=== PATIENT | female | born 1950 | race Caucasian/White ===

== ENCOUNTER 2017-08-20 05:31 | Inpatient (IN) | payer MEDICAID, SELFPAY ==
[2017-08-20 05:32] VITALS: BP 154/84; PULSE 86; RESP 20; TEMP 36.9; O2SAT 93; BMI 38.0
--- NOTE | 2017-08-20 05:49 | EKG12_ITS ---
Test Reason : GEN ILL Blood Pressure : / mmHG Vent. Rate : 084 BPM Atrial Rate : 083 BPM P-R Int : 132 ms QRS Dur : 082 ms QT Int : 338 ms P-R-T Axes : 038 022 074 degrees QTc Int : 399 ms Normal sinus rhythm Nonspecific ST and T wave abnormality Abnormal ECG Confirmed by DILLON TREJO ([id number]), deputy editor in chief PROMISE DICKINSON ([id number] on 08/25/2017 1:50:18 PM Referred By: WHITNEY Confirmed By:DILLON TREJO
[2017-08-20 06:05] LABS: Hematocrit 38.1 % (37-47); Hemoglobin 11.9 g/dl (12.0-15.0); Mean Corp Hgb Conc 31.2 g/gl (32-36); Mean Corpuscular Hgb 29.5 pg (27.0-32.0); Mean Corpuscular Volume 94.3 fL (81-99); Mean Platelet Vol. 10.2 fl (6.2-12.0); Platelet Count 122 K/mm3 (150-450); RBC Distribution Width CV 13.6 % (11.6-14.6); RBC Distribution Width SD 45.1 fl (35.1-43.9); Red Blood Count 4.04 M/mm3 (4.2-5.4); White Blood Count 8.7 K/mm3 (4.4-11.0)
[2017-08-20 06:07] LABS: Scan Indicated on CBC? Y/N NO
[2017-08-20] MEDS: Ondansetron 4 MG/2 ML Vial IV (06:10)
[2017-08-20 06:27] LABS: Anion Gap 9 (5-15); BUN 25 mg/dL (7-18); BUN/Creat Ratio 18.9 RATIO (10-20); Calcium,Total 8.6 mg/dL (8.5-10.1); Chloride 110 mmol/L (98-107); Creatinine, Serum 1.32 mg/dL (0.55-1.02); EST Glomerular Filtration Rate 43 mL/min (>60); Est Glom Filt Rate - Afr Amer 52 mL/min (>60); Estimated Creatinine Clearance 42.29 ml/min; Glucose 178 mg/dL (74-106); Sodium Level 145 mmol/L (136-145)
--- NOTE | 2017-08-20 06:43 | ED.RN ---
PT STATED THAT SHE HAS NOT HAD HER DRSG CHANGED ON HER BILAT LEGS SINCE MAY.REMOVED BILAT DRSGS AND THERE WAS DRIED STOOL IN THE R WOUND.BILAT LEGS ARE VERY ODOROUS AND SKIN SLUFFING.PT HAS NOT TAKEN A BATH IN MONTHS EITHER.
--- NOTE | 2017-08-20 06:49 | ED.VISSUMM ---
- ER Visit Summary Date of Service: 08/20/17 Chief Complaint: [] Weakness History of Present Illness: The patient is a 66 F reports weakness for the last 7 days. Gradual onset continuous. Current severity is mild. She had one episode of emesis this evening. She is complaining of chronic feet burning with history of peripheral neuropathy. She has chronic lower extremity wounds. She has not changed her dressings for 2 months per patient. She said is because she has not had a wound care appointment. She has chronic lymphedema and severe ulceration and wounds. Her last visit to wound care they did a debridement on her right lateral calf. Physical Examination: Vital signs reviewed General: Is unkempt and dirty. Her lower extremity dressings are old foul-smelling dirty and full of cat hair and she had a bag of chips under her shirt. Head: Normocephalic atraumatic Eyes: Pupils equal round and reactive to light extraocular movements intact ENT: TMs clear no hemotympanum no trauma Neck: Nontender full range of motion Cardiovascular: Regular rate rhythm no murmurs normal S1-S2 Respiratory: No distress clear to auscultation bilaterally chest nontender Abdomen: Soft nontender nondistended normal bowel sounds no masses Back: Nontender no CVA tenderness Extremities: Lymphedema severe from the knees to her feet. Chronic ulceration without acute infection. Debridement of the right lateral calf noted with some mild bleeding. No evidence of cellulitis. Neuro alert oriented cranial nerves II through XII intact normal strength sensation reflexes Test Results: [] Emergency Department Course and Treatment: [] CBC normal except hemoglobin 9.9 chronic. Chemistries normal except chloride 110. Creatinine 1.3. Urinalysis pending. Troponin less than 0.02. EKG shows sinus at 84. I discussed with the patient. She does not think she can care for herself at home care for these wounds. Of a low suspicion for infection. She will be admitted. Treatment Plan: [] Disposition: [] Impression: [] Weakness Chronic lymphedema bilateral lower legs with severe maceration and ulceration Failure to thrive This note was generated with [employer]zCentral[employer] software. It may contain incorrect words, spelling, and punctuation that were not noted in review of the chart prior to signing ED Disposition - Plan for ED Patient: Chief Complaint: Fatigue Referrals: Kim Field MD [Primary Care Provider] -
--- NOTE | 2017-08-20 06:52 | ED.DCSUM_ITS ---
- ER Visit Summary Date of Service: 08/20/17 Chief Complaint: [] Weakness History of Present Illness: The patient is a 66 F reports weakness for the last 7 days. Gradual onset continuous. Current severity is mild. She had one episode of emesis this evening. She is complaining of chronic feet burning with history of peripheral neuropathy. She has chronic lower extremity wounds. She has not changed her dressings for 2 months per patient. She said is because she has not had a wound care appointment. She has chronic lymphedema and severe ulceration and wounds. Her last visit to wound care they did a debridement on her right lateral calf. Physical Examination: Vital signs reviewed General: Is unkempt and dirty. Her lower extremity dressings are old foul- smelling dirty and full of cat hair and she had a bag of chips under her shirt. Head: Normocephalic atraumatic Eyes: Pupils equal round and reactive to light extraocular movements intact ENT: TMs clear no hemotympanum no trauma Neck: Nontender full range of motion Cardiovascular: Regular rate rhythm no murmurs normal S1-S2 Respiratory: No distress clear to auscultation bilaterally chest nontender Abdomen: Soft nontender nondistended normal bowel sounds no masses Back: Nontender no CVA tenderness Extremities: Lymphedema severe from the knees to her feet. Chronic ulceration without acute infection. Debridement of the right lateral calf noted with some mild bleeding. No evidence of cellulitis. Neuro alert oriented cranial nerves II through XII intact normal strength sensation reflexes Test Results: [] Emergency Department Course and Treatment: [] CBC normal except hemoglobin 9.9 chronic. Chemistries normal except chloride 110. Creatinine 1.3. Urinalysis pending. Troponin less than 0.02. EKG shows sinus at 84. I discussed with the patient. She does not think she can care for herself at home care for these wounds. Of a low suspicion for infection. She will be admitted. Treatment Plan: [] Disposition: [] Impression: [] Weakness Chronic lymphedema bilateral lower legs with severe maceration and ulceration Failure to thrive This note was generated with Nimbu[employer]ation software. It may contain incorrect words, spelling, and punctuation that were not noted in review of the chart prior to signing ED Disposition - Plan for ED Patient: Chief Complaint: Fatigue Referrals: Kim Field MD [Primary Care Provider] -
[2017-08-20 06:59] LABS: Mucous, Urine 0 SEEN /hpf (<or=2+); Squamous Epithelial Cells - UA 0 SEEN /hpf (5-10)
[2017-08-20 07:01] LABS: Color, Urine Yellow (Yellow); Glucose, Dipstick 100 mg/dl (Normal); Ketone-Dipstick Negative (Negative); Leukocyte Esterase-Dipstick 25 /ul (Negative); Nitrite-Dipstick Negative (Negative); Occult Blood-Urine 150 /ul (Negative); Protein-Dipstick 500 mg/dl (Negative); Specific Gravity, Urine 1.015 (1.002-1.030); Urine Bilirubin Dipstick Negative (Negative); Urine Clarity Sl. Cloudy (Clear); Urine Urobilinogen Normal (Normal)
[2017-08-20 07:09] VITALS: BP 174/79; PULSE 84; RESP 16; TEMP 36.7; O2SAT 96
[2017-08-20 07:09] LABS: Amorphous Sediment 2+; Bacteria RARE /hpf (None Seen); Red Blood Cells-Urine 0-5 SEEN /hpf (0-5); White Blood Cells 0-5 SEEN /hpf (0-5)
--- NOTE | 2017-08-20 08:00 | HP.PCM_ITS ---
Problem List (1) Venous ulcer of both lower extremities with varicose veins Status: Chronic (2) Acute CHF (congestive heart failure) Status: Acute Qualifiers: (3) Diabetes mellitus type 2 in obese Status: Chronic (4) Pulmonary arterial hypertension Status: Chronic (5) History of hyperlipidemia Status: Chronic (6) S/P CABG (coronary artery bypass graft) Status: Chronic (7) Bilateral lower leg cellulitis Status: Resolved History of Present Illness Date of Admission: 08/20/17 Chief Complaint: Generalized weakness, severe lower extremity lymphedema and ulcerations The patient is a 66 year old F with past medical history of chronic lower extremity venous stasis and ulcers, CAD s/p CABG, diastolic heart failure, obesity, type 2 diabetes who presented to the emergency room due to generalized weakness. Complains of bilateral lower extremity pain and burning sensation. Chronic leg wounds and he usually follows up with a wound clinic but she has not been to the wound clinic for the past 2 months and her leg dressing has not been changed for the past 2 months. When she arrived in the ED she looked significantly unkempt, her lower extremity dressings were foul-smelling dirty and full of cat hair and she had a bag of chips under her shirt. her lower extremities are lymphedematous with severe maceration and ulceration evidence of acute infection. The patient is being admitted to the hospital for further management. Past Medical History Past Medical History (Chronic Problems): Chronic Problems Noncompliance with treatment regimen (Chronic) 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) Diabetes mellitus type 2 in obese (Chronic) Aortic stenosis, mild (Chronic) Pulmonary arterial hypertension (Chronic) Pulmonary nodules (Chronic) Cholelithiasis (Chronic) Tricuspid regurgitation (Chronic) History of esophageal reflux (Chronic) History of hyperlipidemia (Chronic) History of hypertension (Chronic) S/P CABG (coronary artery bypass graft) (Chronic) Obesity (BMI 30.0-34.9) (Chronic) Stasis dermatitis of both legs (Chronic) Lymphedema of both lower extremities (Chronic) Heart failure with preserved ejection fraction (Chronic) 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) Thrombocytopenia (Chronic) Neuropathy, peripheral (Chronic) Allergies Penicillins Allergy (Verified 03/30/17 17:21) Rash rosiglitazone maleate [From Avandia] Allergy (Verified 03/30/17 17:21) Swelling & diarrhea simvastatin [From Zocor] Allergy (Verified 03/30/17 17:21) Muscle weakness atorvastatin calcium [From Lipitor] Adverse Reaction (Verified 03/30/17 17:21) Muscle weakness esomeprazole magnesium [From Nexium] Adverse Reaction (Verified 03/30/17 17:21) Diarrhea lansoprazole [From Prevacid] Adverse Reaction (Verified 03/30/17 17:21) Diarrhea Sulfa (Sulfonamide Antibiotics) Adverse Reaction (Verified 03/30/17 17:21) Nausea/Vom/Diarrhea from PCP office records Home Medications: Ambulatory Orders Medication Instructions Recorded Aspirin [Aspirin, Baby] 81 mg PO DAILY@0800 10/20/14 Insulin Aspart [Novolog Flexpen] 53 units SC TIDCM 10/20/14 Ferrous Gluconate 325 mg PO DAILY@0800 10/21/14 Metoprolol Tartrate [Lopressor 100 mg PO BID 10/21/14 (beta apryl)] Pantoprazole Sodium [Protonix] 40 mg PO BID 10/21/14 Rosuvastatin Calcium [Crestor] 5 mg PO QHS 10/21/14 Nitroglycerin [Nitrostat] 0.4 mg SUBLINGUAL Q5M PRN 11/24/14 Gabapentin [Neurontin] 100 mg PO BID 07/02/15 Ergocalciferol [Vitamin D] 50,000 units PO SA 02/16/16 Isosorbide Mononitrate [Isosorbide 30 mg PO DAILY 02/16/16 Mononitrate ER] Niacinamide [Niacin] 500 mg PO BID 02/16/16 Furosemide [Lasix] 40 mg PO DAILY 05/06/16 Montelukast Sodium [Singulair] 10 mg PO QHS 05/06/16 Amlodipine [Norvasc] 5 mg PO DAILY 06/10/16 Spironolactone 25 mg PO DAILY 06/10/16 Sucralfate [Carafate] 1 gm PO 4X/DAY PRN 06/10/16 Losartan Potassium [Cozaar] 100 mg PO DAILY #30 tablet 06/14/16 Gauze Bandage [Rolled Gauze] 1 each TP DAILY #20 bandage 09/04/16 Gauze/Lanolin/Min Oil/[place]/Wax 1 each TP DAILY #20 bandage 09/04/16 [Cuticerin 3X3 Dressing] Gauze/Lanolin/Min Oil/[place]/Wax 1 each TP DAILY #10 bandage 09/04/16 [Cuticerin 3X8 Dressing] Insulin Aspart [Novolog Flexpen] 20 units SC TIDAC #1 flexpen 10/06/16 Ammonium Lactate 03/31/17 Insulin Aspart [Novolog Flexpen] 0 units SC ACHS 03/31/17 Ondansetron [Zofran Odt] 8 mg PO Q6H PRN PRN 03/31/17 Potassium Chloride [K-Dur] 10 meq PO DAILY 03/31/17 Triamcinolone 0.025% Cream 1 applic TOPICAL BID PRN 03/31/17 [Kenalog] Insulin Glargine,Hum.rec.anlog 100 unit SQ QHS 08/20/17 [Basaglar Kwikpen U-100] Surgical History: coronary bypass surgery, - - Right femoral bypass surgery, cochlear impants Smoking Status: Former smoker - *Family History Sibling History Items: Heart Disease Maternal History Items: No pertinent history Paternal History Items: No pertinent history Review of Systems Comment: All Systems were reviewed with pertinent positives mentioned in the HPI above. VTE Information - Inpt Only VTE Present on Admission: No VTE Mechan Device Prophylaxis: None VTE Pharm Prophylaxis ordered?: Yes - Physical Exam General: Alert, Oriented x3, - HEENT: Atraumatic Oral: Moist Mucosa Neck: Supple, No JVD Lungs: No wheeze, No rales Cardiovascular: Regular rate, Regular Rhythm, Normal S1, Normal S2 Abdomen: Bowel Sounds Present, Soft, Non Tender, Non-Distended Extremities: - Neurological: Cranial nerves II-XII grossly intact Vital Signs Temp Pulse Resp BP Pulse Ox 98.0 F 84 16 174/79 H 96 08/20/17 07:09 08/20/17 07:09 08/20/17 07:09 08/20/17 07:09 08/20/17 07:09 Oxygen Delivery Method Room Air Weight: 113.398 kg Body Mass Index (BMI) 38.0 Finger Stick Blood Glucose 262 Laboratory Tests Past 24 Hrs 08/20/17 08/20/17 08/20/17 05:45 05:45 06:55 WBC 8.7 RBC 4.04 L Hgb 11.9 L Hct 38.1 MCV 94.3 MCH 29.5 MCHC 31.2 L RDW 13.6 RDW Differential 45.1 H Plt Count 122 L MPV 10.2 Sodium 145 Potassium 5.0 Chloride 110 H Carbon Dioxide 26.0 Anion Gap 9 BUN 25 H Creatinine 1.32 H Estim Creat Clear Calc 42.29 Est GFR (MDRD) Af Amer 52 L Est GFR (MDRD) Non-Af 43 L BUN/Creatinine Ratio 18.9 Glucose 178 H Calcium 8.6 Troponin I < 0.02 Urine Color Yellow Urine Clarity Sl. Cloudy Urine pH 6.0 Ur Specific [place] 1.015 Urine Protein 500 H Urine Glucose (UA) 100 H Urine Ketones Negative Urine Occult Blood 150 H Urine Nitrite Negative Urine Bilirubin Negative Urine Urobilinogen Normal Ur Leukocyte Esterase 25 H Urine RBC 0-5 SEEN Urine WBC 0-5 SEEN Ur Squamous Epith Cells 0 SEEN Amorphous Sediment 2+ Urine Bacteria RARE Urine Mucus 0 SEEN Assessment/Plan 1. Lower extremity lymphedema with severe maceration; we will place the her on IV Lasix to reduce the swelling, will consult field operations technician for possible debridement and ET nurse for local wound care. I do not believe the patient needs any antibiotics at this time. 2. CAD status post CABG; the patient reports no symptoms of angina or heart failure at this point in time, will continue her cardioprotective medications as they are. 3. chronic diastolic heart failure/ severe pulmonary hypertension; she is clinically compensated, we will continue her on Lasix. 4. Type 2 diabetes; she is on Lantus and we will add regular insulin sliding scale for glycemic spikes.. 5. Morbid Obesity; weight loss recommended but unfortunately this is unlikely to happen due to lack of motivation. 6. Failure to thrive, adult; supportive measures , she will benefit from assisted placement. 7. DVT prophylaxis with Lovenox. Code Visit Inpatient E&M: 60397 Init Hosp L2
[2017-08-20 09:45] VITALS: BP 135/63; PULSE 77; RESP 18; TEMP 36.3; O2SAT 95; BMI 35.2; BMI 35.3
[2017-08-20 11:02] VITALS: PULSE 77
[2017-08-20] MEDS: Enoxaparin 40 MG/0.4 ML Syringe SC (11:02)
[2017-08-20] MEDS: 0.9% NaCl Peripheral Flush Adult/Peds IV ×2 (11:02→18:00)
[2017-08-20] MEDS: Losartan Potassium 100 MG Tablet PO (11:02)
[2017-08-20] MEDS: Metoprolol Tartrate 100 MG Tablet PO ×2 (11:02→21:32)
[2017-08-20] MEDS: Isosorbide Mononitrate 30 MG Tablet PO (11:02)
[2017-08-20] MEDS: Furosemide 40 MG/4 ML Vial IV ×2 (11:02→17:59)
[2017-08-20] MEDS: Gabapentin 100 MG Capsule PO ×2 (11:03→16:08)
[2017-08-20 11:41] LABS: Bedside Glucose 169 mg/dL (70-110)
--- NOTE | 2017-08-20 12:19 | CASEMGMT ---
Social Work Note Placed phone call to Carline Simmons at [facility] and left vm inquiring if there was an open case or anything in place at this time. SW to continue to follow. Yvrose Ch, SUPERVISOR PRINT LINE, FOUR SLIDE MACHINE SETTER
[2017-08-20] MEDS: Pantoprazole Sodium 40 MG Tablet PO ×2 (12:20→21:32)
[2017-08-20] MEDS: Spironolactone 25 MG Tablet PO (12:20)
--- NOTE | 2017-08-20 13:58 | NURSING ---
wound photo: left lower leg (anterior view)
--- NOTE | 2017-08-20 13:58 | NURSING ---
wound photo: left posterior lower leg
--- NOTE | 2017-08-20 14:05 | NURSING ---
wound photo: right lower leg (anterior/lateral)
--- NOTE | 2017-08-20 14:06 | NURSING ---
wound photo: right posterior lower leg
[2017-08-20 16:11] LABS: Bedside Glucose 184 mg/dL (70-110)
--- NOTE | 2017-08-20 16:57 | CASEMGMT ---
Social Work Assessment Referral Date: 08/20/2017 Date of Assessment: 08/20/2017 Reason for Consult: Presented with Self-Neglect Information: Self-Referral Personal Status: Mentation: Pt is alert and oriented x3. Able to state who she is, where she is and the date. Presents with blunted affect as evidenced by decreased amplitude of emotion and expression by pt. Pt is unkempt, presented to hospital with dressings on legs not being changed in over two months, dried feces and cat hair in her wounds and on her dressings. Unsure when pt last showered. Present during Assessment: No visitors present, but pt able to complete assessment. Living Arrangements: Pt reports to live in a two-story home with her brother, but claims there is a one-level setup. Pt known to SW from past admissions. Denies any abuse or neglect by her brother. Education: Pt graduated high school Employment: Pt is unemployed. Receives $735/month through [employer]. Reports that she is financially stable. Denies receiving food stamps and declines to apply for food stamps at this time. Claims that her brother has MOW, but states she cannot get them since he does. ADL's: Pt reports to be independent with care. DME consists of a walker. Pt reports to use taxis for transportation. Inquire she did not change the dressings on her legs for 2 months and she states I got to too busy, and with this flu thing going around... Express concern with the pt's inability to care for herself. Pt claims that she can and intends on returning home. Denies having past or present open cases with APS. Substance Use Hx: Pt denies any substance use history. No indications of use/abuse present on this admission. Mental Health Hx: Pt denies mental health diagnoses. Denies symptoms of depression or anxiety. Resources: JFS: Medicaid Pt denies utilization of resources other than JFS for Medicaid. Declines to apply for Food [place]. Intervention: Assessment completed to identify needs. Discussed discharge plan and at this time pt intends on returning home. Reports that she will follow up with the wound center for wound care and that she will use taxi's for transportation to an from appointments. Educated to SNF and [facility] and pt declines stating that she can manage her care. APS [facility] Ada Soria[facility] animal maintenance [facility] Left vm and requested a return phone call with additional questions. Plan: TBD. Yvrose Ch, REHABILITATION TEACHER, SALES ATTENDANT BUILDING MATERIALS
[2017-08-20] MEDS: Glucerna Shake 120 ML LIQUID PO ×2 (17:59→21:31)
--- NOTE | 2017-08-20 21:11 | PCM.CONS.GEN ---
Problem List (1) Venous insufficiency of both lower extremities Status: Chronic (2) Other specified peripheral vascular diseases Status: Chronic (3) Ulcer of left lower extremity with fat layer exposed Status: Chronic (4) Ulcer of right lower extremity with fat layer exposed Status: Chronic (5) Delayed wound healing Status: Chronic (6) Noncompliance with treatment regimen Status: Chronic (7) Venous ulcer of both lower extremities with varicose veins Status: Chronic (8) Obesity (BMI 30.0-34.9) Status: Chronic (9) Stasis dermatitis of both legs Status: Chronic (10) Lymphedema of both lower extremities Status: Chronic Reason for Consult Date of Consultation: 08/20/17 Reason for Consultation: Leg ulcers, maceration, and uncontrolled swelling History of Present Illness: The patient is a 66 year old female seen bedside this evening for bilateral lower extremity swelling, maceration, and ulcers. The patient is eating dinner at this time and does not want her dressings removed. After discussing that I would like to initiate her podiatric care plan and in order to do so seeing the legs willmprovide the appropriate information to do so. she is amenable to have them looked at, but wants to consider debridements at a different time. She denies previous wound care or debridements. However, upon chart review it appears she has been seen by various physicians at the wound healing center and has started the standard wound healing treatment plan including workup and debridements. She has pain at this time and relates her swelling him uncontrolled and the dressings on her legs became dry and too tight; she is unable to remove them on her own. This is part of the reason she came to the hospital in addition to her heart fluid overload. She denies claudication. However, she denies routine ambulation. She does have rest paresthesias consistent with neuropathy. Past Medical History Past Medical History (Chronic Problems): Chronic Problems Venous insufficiency of both lower extremities (Chronic) Other specified peripheral vascular diseases (Chronic) Ulcer of left lower extremity with fat layer exposed (Chronic) Ulcer of right lower extremity with fat layer exposed (Chronic) Delayed wound healing (Chronic) Noncompliance with treatment regimen (Chronic) 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) Diabetes mellitus type 2 in obese (Chronic) Aortic stenosis, mild (Chronic) Pulmonary arterial hypertension (Chronic) Pulmonary nodules (Chronic) Cholelithiasis (Chronic) Tricuspid regurgitation (Chronic) History of esophageal reflux (Chronic) History of hyperlipidemia (Chronic) History of hypertension (Chronic) S/P CABG (coronary artery bypass graft) (Chronic) Obesity (BMI 30.0-34.9) (Chronic) Stasis dermatitis of both legs (Chronic) Lymphedema of both lower extremities (Chronic) Heart failure with preserved ejection fraction (Chronic) 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) Thrombocytopenia (Chronic) Neuropathy, peripheral (Chronic) Allergies Penicillins Allergy (Verified 03/30/17 17:21) Rash rosiglitazone maleate [From Avandia] Allergy (Verified 03/30/17 17:21) Swelling & diarrhea simvastatin [From Zocor] Allergy (Verified 03/30/17 17:21) Muscle weakness atorvastatin calcium [From Lipitor] Adverse Reaction (Verified 03/30/17:) Muscle weakness esomeprazole magnesium [From Nexium] Adverse Reaction (Verified 03/30/17 17:21) Diarrhea lansoprazole [From Prevacid] Adverse Reaction (Verified 03/30/17 17:) Diarrhea Sulfa (Sulfonamide Antibiotics) Adverse Reaction (Verified 03/30/17 17:21) Nausea/Vom/Diarrhea from PCP office records Home Medications: Ambulatory Orders Medication Instructions Recorded Aspirin [Aspirin, Baby] 81 mg PO DAILY@0810/20/14 Ferrous Gluconate 325 mg PO DAILY@79910/21/14 Metoprolol Tartrate [Lopressor 100 mg PO BID 10/21/14 (beta apryl)] Pantoprazole Sodium [Protonix] 40 mg PO BID 10/21/14 Rosuvastatin Calcium [Crestor] 2.5 mg PO QHS 10/21/14 Nitroglycerin [Nitrostat] 0.4 mg SUBLINGUAL Q5M PRN 11/24/14 Gabapentin [Neurontin] 100 mg PO BID 07/02/15 Ergocalciferol [Vitamin D] 50,000 units PO SA 02/16/16 Isosorbide Mononitrate [Isosorbide 30 mg PO DAILY 02/16/16 Mononitrate ER] Niacinamide [Niacin] 500 mg PO BID 02/16/16 Furosemide [Lasix] 40 mg PO DAILY 05/06/16 Montelukast Sodium [Singulair] 10 mg PO QHS 05/06/16 Amlodipine [Norvasc] 2.5 mg PO DAILY 06/10/16 Spironolactone 25 mg PO DAILY 06/10/16 Sucralfate [Carafate] 1 gm PO 4X/DAY PRN 06/10/16 Losartan Potassium [Cozaar] 100 mg PO DAILY #30 tablet 06/14/16 Gauze Bandage [Rolled Gauze] 1 each TP DAILY #20 bandage 09/04/16 Gauze/Lanolin/Min Oil/[place]/Wax 1 each TP DAILY #20 bandage 09/04/16 [Cuticerin 3X3 Dressing] Gauze/Lanolin/Min Oil/[place]/Wax 1 each TP DAILY #10 bandage 09/04/16 [Cuticerin 3X8 Dressing] Insulin Aspart [Novolog Flexpen] 20 units SC TIDAC #1 flexpen 10/06/16 Ondansetron [Zofran Odt] 8 mg PO Q6H PRN PRN 03/31/17 Potassium Chloride [K-Dur] 10 meq PO DAILY 03/31/17 Insulin Glargine,Hum.rec.anlog 100 unit SQ QHS 08/20/17 [Basaglar Kwikpen U-100] Surgical History: coronary bypass surgery, - - Right femoral bypass surgery, cochlear impants Smoking Status: Former smoker - *Family History Sibling History Items: Heart Disease Maternal History Items: No pertinent history Paternal History Items: No pertinent history Review of Systems Constitutional: Reports: Weakness. Denies: Chills, Fever Cardiovascular: Reports: Orthopnea. Denies: Claudication Respiratory: Reports: Shortness of Breath Gastrointestinal: Denies: Nausea, Vomiting Musculoskeletal: Reports: Leg Pain. Denies: Foot Pain Skin: Reports: Skin Changes, Wounds Neurological: Reports: Numbness - Physical Exam General: Alert, Oriented x3, Cooperative, Lethargic HEENT: Atraumatic Extremities: No cyanosis, Capillary Refill Less than 3 Seconds, No Calf Tenderness - Negative Susie and Ch sign bilateral, Diminished Peripheral Pulses, Edema - With lymphedema changes bilateral lower extremities legs and feet, Tenderness - Pain with wound manipulation bilateral Skin: Ulcer/ Wound - There are large circumferential cluster wounds to bilateral lower extremities and also to the dorsal feet and toes. There is interdigital maceration and like maceration. There is no kyleigh necrosis, purulence on expression, streaking. There is inflammation, edema and diffuse erythema consistent with chronic edema and venous stasis. There is no calor or odor and it is noted that she had the length copiously cleansed earlier today. Wound beds are granular and fibrous. There is no exposed bone. The legs are hairless bilateral, - - Her clinical appearance is not consistent with an acute infection and I am suspecting more of a venous component. Musculoskeletal: No Tenderness to Palpation of Joints or Extremities, Muscle Wasting, Tenderness - Pain with manipulation bilateral, - - No crepitus or bogginess on palpation bilateral. Active range of motion digits and ankles bilateral. Decreased muscle strength noted perform a significant single leg raise test bilateral Neurological: - - Lack of epicritic sensation light touch bilateral lower extremities Psych/Mental Status: Normal Affect, Appropriate Vital Signs Temp Pulse Resp BP Pulse Ox 97.4 F L 77 18 135/63 H 95 08/20/17 09:45 08/20/17 11:02 08/20/17 09:45 08/20/17 09:45 08/20/17 09:45 Oxygen Flow Rate 2 Oxygen Delivery Method Nasal Cannula Weight: 105.2 kg Body Mass Index (BMI) 35.2 Intake and Output for Last 24 Hours 08/18/17 08/19/17 08/20/17 23:59 23:59 23:59 Output Total 1400 / 1400 Balance -1400 / -1400 POC Glucose 08/20/17 08/20/17 16:01 11:25 POC Glucose 184 H 169 H Assessment/Plan Bilateral lower extremity edema secondary to lymphedema, possible venous insufficiency, and congestive heart failure fluid overload Morbid obesity Bilateral leg ulcers with fat layer exposed Diabetes neuropathy Maceration Delayed healing Noncompliance I reviewed and discussed the case with the patient. Her diagnostic data was reviewed. She does not demonstrate leukocytosis and her white blood cell count is 8.7. Her vital signs remained stable. She has melgisorb are applied to the wounds as her maceration and edema is different dressings and wound care products will be considered. I recommended debridement and she elects to hold off this evening. Purpose and indication of the wound debridements were provided including removal of nonviable and unhealthy tissue and to further stimulate the healing process. To elevate the limbs at rest and continued light compression. I recommend further workup to see if there is a venous component to this swelling with a venous duplex Doppler with reflex evaluation. I reviewed her noninvasive vascular studies from March 2016 which demonstrated bilateral ankle noncompressible vessels.. Per chart reviewed his wounds are very chronic and I recommend an outpatient vascular surgery referral. She does not appear to have critical limb ischemia at this time. To continue with Lasix for edema reduction. To continue with proper glycemic control and nutritional supplementation to optimize healing. Medical management DVT and fall prevention per primary team is appreciated. Thank you very much for the consultation. I will follow her 1-2 times weekly while in house. To follow-up at the wound care center upon discharge. Sandra Michael, [facility] [phone]
[2017-08-20 21:25] VITALS: BP 148/66; PULSE 82; RESP 18; TEMP 37.4; O2SAT 94
--- NOTE | 2017-08-20 21:27 | VDLE_ITS ---
Reason For Study: BLE sweling RIGHT LEFT CFV is compressible, spontaneous, phasic, CFV is compressible, spontaneous, phasic, competent and demonstrates normal competent, and demonstrates normal augmentation. augmentation. FV is compressible, spontaneous, phasic, FV is compressible, spontaneous, phasic, competent and demonstrates normal competent and demonstrates normal augmentation. augmentation. POP V is compressible, spontaneous, phasic, POP V is compressible, spontaneous, phasic, competent and demonstrates normal competent and demonstrates normal augmentation. augmentation. T/P Trunk is compressible. T/P Trunk is compressible. Unable to image below the knee. RN advised Unable to visualize distal FV. against removing bandages due to extensive Unable to image below the knee. RN advised weeping blisters. against removing bandages due to extensive weeping blisters. SFJ is competent. GSV is harvested. SFJ is competent. SSV is competent. GSV is competent. Procedure SSV is competent. Exam performed portable in patient room. The study was technically limited. The study was technically difficult. PT had difficulty following directions. Legs were rigid throughout exam. A preliminary report was called and/or faxed to [facility]. Interpretation Summary Deep veins of the lower extremities are bilaterally patent and compressible segmentally. There is no evidence of deep vein thrombosis on either side. Valvular competence appears intact within the proximal deep venous systems bilaterally. The distal left femoral vein was not visualized. The deep veins of the calves were not visualized bilaterally due to the presence of bandages. Sapheno- femoral junctions are bilaterally competent . The right greater saphenous vein is absent, having been previously harvested. The left greater saphenous vein appears patent and compressible segmentally. The left greater saphenous vein appears segmentally competent. Small saphenous veins are patent and competent bilaterally. Ordering Physician: Sandra Michael Referring Physician: Kim Field Performed By: Maria L Parra, RDCS, RVT
[2017-08-20 21:32] VITALS: BP 148/66; PULSE 82
[2017-08-20] MEDS: Rosuvastatin Calcium 5 MG Tablet PO (21:32)
[2017-08-20] MEDS: Montelukast 10 MG Tablet PO (21:35)
[2017-08-20 22:16] LABS: Bedside Glucose 239 mg/dL (70-110)
[2017-08-21] VITALS (9 sets, daily range): BP systolic 118–149; BP diastolic 49–73; PULSE 68–82; RESP 18; TEMP 36.7–37.7; O2SAT 93–94
[2017-08-21 06:58] LABS: Absolute Lymphocyte Count 0.57 X10^3/ul (0.83-4.51); Absolute Neutrophil Count 6.3 X10^3/uL (2.0-7.7); Basophil# 0.01 X10^3/uL; Basophil% 0.1 % (0-1); Differential Indicated SCAN CRITERIA MET; Eosinophil# 0.06 X10^3/uL; Eosinophils% 0.8 % (0-5); Hematocrit 34.2 % (37-47); Hemoglobin 10.2 g/dl (12.0-15.0); Lymphocyte # 0.57 X10^3/ul (4.0); Lymphocyte % 7.8 % (19-41); Mean Corp Hgb Conc 29.8 g/gl (32-36); Mean Corpuscular Hgb 28.5 pg (27.0-32.0); Mean Corpuscular Volume 95.5 fL (81-99); Mean Platelet Vol. 10.4 fl (6.2-12.0); Monocyte# 0.41 X10^3/uL; Monocyte% 5.6 % (0-10); Neutrophil # 6.28 X10^3/uL (2.7-7.7); Neutrophil % 85.6 % (47-70); POSITIVE COUNT NO; POSITIVE DIFFERENTIAL YES; POSITIVE MORPHOLOGY NO; Platelet Count 106 K/mm3 (150-450); RBC Distribution Width SD 49.2 fl (35.1-43.9); Red Blood Count 3.58 M/mm3 (4.2-5.4); White Blood Count 7.3 K/mm3 (4.4-11.0)
[2017-08-21 07:01] LABS: Bedside Glucose 197 mg/dL (70-110)
[2017-08-21 07:04] LABS: Anion Gap 8 (5-15); BUN 31 mg/dL (7-18); BUN/Creat Ratio 18.1 RATIO (10-20); Calcium,Total 7.9 mg/dL (8.5-10.1); Chloride 109 mmol/L (98-107); Creatinine, Serum 1.71 mg/dL (0.55-1.02); EST Glomerular Filtration Rate 32 mL/min (>60); Est Glom Filt Rate - Afr Amer 38 mL/min (>60); Estimated Creatinine Clearance 32.65 ml/min; Glucose 193 mg/dL (74-106); Potassium 5.4 mmol/L (3.5-5.1); Sodium Level 143 mmol/L (136-145)
[2017-08-21] MEDS: Losartan Potassium 100 MG Tablet PO (09:02)
[2017-08-21] MEDS: Aspirin 81 MG TAB.CHEW PO (09:02)
[2017-08-21] MEDS: Spironolactone 25 MG Tablet PO (09:02)
[2017-08-21] MEDS: Ferrous Gluconate 325 MG Tablet PO (09:03)
[2017-08-21] MEDS: Gabapentin 100 MG Capsule PO ×2 (09:03→17:01)
[2017-08-21] MEDS: Isosorbide Mononitrate 30 MG Tablet PO (09:03)
[2017-08-21] MEDS: Pantoprazole Sodium 40 MG Tablet PO ×2 (09:03→22:53)
[2017-08-21] MEDS: Enoxaparin 40 MG/0.4 ML Syringe SC (09:03)
[2017-08-21] MEDS: Glucerna Shake 120 ML LIQUID PO ×4 (09:09→22:55)
[2017-08-21] MEDS: Metoprolol Tartrate 100 MG Tablet PO ×2 (09:13→22:53)
[2017-08-21] MEDS: Furosemide 40 MG/4 ML Vial IV ×2 (09:17→17:02)
[2017-08-21] MEDS: 0.9% NaCl Peripheral Flush Adult/Peds IV ×2 (09:17→17:02)
[2017-08-21 12:16] LABS: Bedside Glucose 292 mg/dL (70-110)
--- NOTE | 2017-08-21 14:45 | CASEMGMT ---
Social Work Note Face to face with the pt to confirm discharge plan. Pt still stating she is not going to a [facility]p. Claims that [facility] will not come out d/t bugs although SW does not believe there are bed bugs as she indicates they are much larger, possibly cockroaches. Pt states that she will get a taxi to the wound center. Express concern with her not following up and pt insists that she will. Suggest [facility] involvement and pt is agreeable. Pt denies any additional needs. Placed call to [facility] and updated on referral. Unsure if they will accept at this time and will await a return phone call to confirm their determination in regards to pt. Official referral sent via [facility]. Anticipate weekend discharge. Will notify Ada Soria with [facility] that pt is discharging home. 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
--- NOTE | 2017-08-21 16:07 | PCM.PN.HOSP ---
Subjective: CC severe lower extremity lymphedema and ulcerations. This is a 66 year old female who presented to the emergency room with bilateral lower extremity pain and burning sensation. She is found to have lower extremities lymphedema and severe maceration and ulceration but no evidence of acute infection. She has been seen by the ET nurse and her legs are wrapped with CARLOS A. she is awaiting ECF placement. Vitals/I&O's: Vital Signs Temp Pulse Resp BP Pulse Ox 98.1 F 73 18 118/49 L 93 08/21/17 14:14 08/21/17 14:14 08/21/17 14:14 08/21/17 14:14 08/21/17 14:14 Oxygen Flow Rate 2 Oxygen Delivery Method Nasal Cannula Weight: 105.2 kg Body Mass Index (BMI) 35.2 Intake and Output for Last 24 Hours 08/19/17 08/20/17 08/21/17 23:59 23:59 23:59 Intake Total 2000 / 1999 Output Total 1400 / 1400 1000 / 1000 Balance -1400 / -1400 1000 / 1000 General: Alert, Oriented x3 HEENT: Atraumatic Neck: Supple, No JVD Lungs: Clear to auscultation Cardiovascular: Regular rate, Normal S1, Normal S2 Abdomen: Bowel Sounds Present, Soft, Non Tender Neurological: Cranial nerves II-XII grossly intact, Deep Tendon Reflexes 2+/4 and Symmetrical, Motor Exam 5/5 strength throughout Laboratory Results 08/20/17 16:01: POC Glucose 184 H 08/20/17 21:38: POC Glucose 239 H 08/21/17 06:18: WBC 7.3, RBC 3.58 L, Hgb 10.2 L, Hct 34.2 L, MCV 95.5, MCH 28.5, MCHC 29.8 L, RDW 14.0, RDW Differential 49.2 H, Plt Count 106 L, MPV 10.4, Immature Gran % (Auto) 0.100, Neut % (Auto) 85.6 H, Lymph % (Auto) 7.8 L, Haines % (Auto) 5.6, Eos % (Auto) 0.8, Baso % (Auto) 0.1, Absolute Neuts (auto) 6.3, Absolute Lymphs (auto) 0.57 L, Total Counted Not Reportable, Differential Comment 08/21/17 06:18: Sodium 143, Potassium 5.4 H, Chloride 109 H, Carbon Dioxide 26.0, Anion Gap 8, BUN 31 H, Creatinine 1.71 H, Estim Creat Clear Calc 32.65, Est GFR (MDRD) Af Amer 38 L, Est GFR (MDRD) Non-Af 32 L, BUN/Creatinine Ratio 18.1, Glucose 193 H, Calcium 7.9 L 08/21/17 06:47: POC Glucose 197 H 08/21/17 12:01: POC Glucose 292 H Current Medications Aspirin (Aspirin, Baby) 81 mg PO DAILY@0800 [facility] Last Admin: 08/21/17 09:02 Dose: 81 mg Enoxaparin Sodium (Lovenox) 40 mg SC DAILY@1000 [facility] Last Admin: 08/21/17 09:03 Dose: 40 mg Ergocalciferol (Vitamin D) 50,000 unit PO [facility] Ferrous Gluconate (Ferrous Gluconate) 325 mg PO DAILY@0800 [facility] Last Admin: 08/21/17 09:03 Dose: 325 mg Furosemide (Lasix) 40 mg IV BID@1000,1800 [facility] Last Admin: 08/21/17 09:17 Dose: 40 mg [facility]) [facility] Last Admin: 08/21/17 09:03 Dose: 100 mg Insulin Aspart (Novolog Flexpen (Bkc)) 10 units SC TIDAC [facility] Last Admin: 08/21/17 12:07 Dose: 10 u Insulin Detemir (Levemir (Bkc)) 52 units SC HS [facility] Last Admin: 08/20/17 22:09 Dose: 52 units Isosorbide Mononitrate (Imdur) 30 mg PO DAILY [facility] Last Admin: 08/21/17 09:03 Dose: 30 mg Losartan Potassium (Cozaar) 100 mg PO DAILY [facility] Last Admin: 08/21/17 09:02 Dose: 100 mg Magnesium Hydroxide (Milk Of Magnesia) 30 ml PO DAILY PRN PRN PRN Reason: Constipation Metoprolol Tartrate (Lopressor (Beta Richard)) 100 mg PO BID [facility] Last Admin: 08/21/17 09:13 Dose: 100 mg Montelukast Sodium (Singulair) 10 mg PO QHS [facility] Last Admin: 08/20/17 21:35 Dose: 10 mg N[facility]in ([facility]in Sr) [facility] Last Admin: 08/21/17 09:03 Dose: 500 mg Nitroglycerin (Nitrostat) 0.4 mg SUBLINGUAL Q5M PRN PRN Reason: Chest Pain Nutritional Formula (Lactose Free) (Glucerna Shake) 120 ml PO 4X/DAY [facility] Last Admin: 08/21/17 15:37 Dose: 120 ml Ondansetron HCl (Zofran Odt) 8 mg PO Q6H PRN PRN PRN Reason: NAUSEA/VOMITING Pantoprazole Sodium (Protonix) 40 mg PO BID [facility] Last Admin: 08/21/17 09:03 Dose: 40 mg Potassium Chloride (K-Dur) 10 meq PO DAILY [facility] Last Admin: 08/21/17 09:03 Dose: 10 meq Rosuvastatin Calcium (Crestor) 5 mg PO HS [facility] Last Admin: 08/20/17 21:32 Dose: 5 mg Sodium Chloride () 5 - 30 ml IV UD PRN PRN Reason: SALINE FLUSH Last Admin: 08/21/17 09:17 Dose: 10 ml Spironolactone (Aldactone) 25 mg PO DAILY [facility] Last Admin: 08/21/17 09:02 Dose: 25 mg Assessment/Plan 1. Lower extremity lymphedema with severe maceration; we will continue on IV Lasix , ET nurse for local care. 2. CAD status post CABG; the patient reports no symptoms of angina or heart failure. 3. chronic diastolic heart failure/ severe pulmonary hypertension; she is clinically compensated, we will continue her on Lasix. 4. Type 2 diabetes; she is on Lantus and RISS for glycemic spikes. 5. Morbid Obesity; weight loss recommended . 6. Failure to thrive, adult; nutritional support, other supportive measures , she will benefit from mcfp placement. 7. DVT prophylaxis with Lovenox. Code Visit Inpatient E&M: 55722 Subs Hosp L2
--- NOTE | 2017-08-21 16:13 | PN_ITS ---
Subjective: CC severe lower extremity lymphedema and ulcerations. This is a 66 year old female who presented to the emergency room with bilateral lower extremity pain and burning sensation. She is found to have lower extremities lymphedema and severe maceration and ulceration but no evidence of acute infection. She has been seen by the ET nurse and her legs are wrapped with CARLOS A. she is awaiting ECF placement. Vitals/I&O's: Vital Signs Temp Pulse Resp BP Pulse Ox 98.1 F 73 18 118/49 L 93 08/21/17 14:14 08/21/17 14:14 08/21/17 14:14 08/21/17 14:14 08/21/17 14:14 Oxygen Flow Rate 2 Oxygen Delivery Method Nasal Cannula Weight: 105.2 kg Body Mass Index (BMI) 35.2 Intake and Output for Last 24 Hours 08/19/17 08/20/17 08/21/17 23:59 23:59 23:59 Intake Total 2000 / 1999 Output Total 1400 / 1400 1000 / 1000 Balance -1400 / -1400 1000 / 1000 General: Alert, Oriented x3 HEENT: Atraumatic Neck: Supple, No JVD Lungs: Clear to auscultation Cardiovascular: Regular rate, Normal S1, Normal S2 Abdomen: Bowel Sounds Present, Soft, Non Tender Neurological: Cranial nerves II-XII grossly intact, Deep Tendon Reflexes 2+/4 and Symmetrical, Motor Exam 5/5 strength throughout Laboratory Results 08/20/17 16:01: POC Glucose 184 H 08/20/17 21:38: POC Glucose 239 H 08/21/17 06:18: WBC 7.3, RBC 3.58 L, Hgb 10.2 L, Hct 34.2 L, MCV 95.5, MCH 28.5 , MCHC 29.8 L, RDW 14.0, RDW Differential 49.2 H, Plt Count 106 L, MPV 10.4, Immature Gran % (Auto) 0.100, Neut % (Auto) 85.6 H, Lymph % (Auto) 7.8 L, [place] % (Auto) 5.6, Eos % (Auto) 0.8, Baso % (Auto) 0.1, Absolute Neuts (auto) 6.3, Absolute Lymphs (auto) 0.57 L, Total Counted Not Reportable, Differential Comment 08/21/17 06:18: Sodium 143, Potassium 5.4 H, Chloride 109 H, Carbon Dioxide 26.0 , Anion Gap 8, BUN 31 H, Creatinine 1.71 H, Estim Creat Clear Calc 32.65, Est GFR (MDRD) Af Amer 38 L, Est GFR (MDRD) Non-Af 32 L, BUN/Creatinine Ratio 18.1, Glucose 193 H, Calcium 7.9 L 08/21/17 06:47: POC Glucose 197 H 08/21/17 12:01: POC Glucose 292 H Current Medications Aspirin (Aspirin, Baby) 81 mg PO DAILY@0800 [facility] Last Admin: 08/21/17 09:02 Dose: 81 mg Enoxaparin Sodium (Lovenox) 40 mg SC DAILY@1000 [facility] Last Admin: 08/21/17 09:03 Dose: 40 mg Ergocalciferol (Vitamin D) 50,[address] [facility] Ferrous Gluconate (Ferrous Gluconate) 325 mg PO DAILY@0800 [facility] Last Admin: 08/21/17 09:03 Dose: 325 mg Furosemide (Lasix) 40 mg IV BID@1000,1800 [facility] Last Admin: 08/21/17 09:17 Dose: 40 mg [facility]) [facility] Last Admin: 08/21/17 09:03 Dose: 100 mg Insulin Aspart (Novolog Flexpen (Bkc)) 10 units SC TIDAC [facility] Last Admin: 08/21/17 12:07 Dose: 10 u Insulin Detemir (Levemir (Bkc)) 52 units SC HS [facility] Last Admin: 08/20/17 22:09 Dose: 52 units Isosorbide Mononitrate (Imdur) 30 mg PO DAILY [facility] Last Admin: 08/21/17 09:03 Dose: 30 mg Losartan Potassium (Cozaar) 100 mg PO DAILY [facility] Last Admin: 08/21/17 09:02 Dose: 100 mg Magnesium Hydroxide (Milk Of Magnesia) 30 ml PO DAILY PRN PRN PRN Reason: Constipation Metoprolol Tartrate (Lopressor (Beta Richard)) 100 mg PO BID [facility] Last Admin: 08/21/17 09:13 Dose: 100 mg Montelukast Sodium (Singulair) 10 mg PO QHS [facility] Last Admin: 08/20/17 21:35 Dose: 10 mg Niacin (Niacin Sr) [facility] Last Admin: 08/21/17 09:03 Dose: 500 mg Nitroglycerin (Nitrostat) 0.4 mg SUBLINGUAL Q5M PRN PRN Reason: Chest Pain Nutritional Formula (Lactose Free) (Glucerna Shake) 120 ml PO 4X/DAY [facility] Last Admin: 08/21/17 15:37 Dose: 120 ml Ondansetron HCl (Zofran Odt) 8 mg PO Q6H PRN PRN PRN Reason: NAUSEA/VOMITING Pantoprazole Sodium (Protonix) 40 mg PO BID [facility] Last Admin: 08/21/17 09:03 Dose: 40 mg Potassium Chloride (K-Dur) 10 meq PO DAILY [facility] Last Admin: 08/21/17 09:03 Dose: 10 meq Rosuvastatin Calcium (Crestor) 5 mg PO HS [facility] Last Admin: 08/20/17 21:32 Dose: 5 mg Sodium Chloride () 5 - 30 ml IV UD PRN PRN Reason: SALINE FLUSH Last Admin: 08/21/17 09:17 Dose: 10 ml Spironolactone (Aldactone) 25 mg PO DAILY [facility] Last Admin: 08/21/17 09:02 Dose: 25 mg Assessment/Plan 1. Lower extremity lymphedema with severe maceration; we will continue on IV Lasix , ET nurse for local care. 2. CAD status post CABG; the patient reports no symptoms of angina or heart failure. 3. chronic diastolic heart failure/ severe pulmonary hypertension; she is clinically compensated, we will continue her on Lasix. 4. Type 2 diabetes; she is on Lantus and RISS for glycemic spikes. 5. Morbid Obesity; weight loss recommended . 6. Failure to thrive, adult; nutritional support, other supportive measures , she will benefit from senior care placement. 7. DVT prophylaxis with Lovenox. Code Visit Inpatient E&M: 96011 Subs Hosp L2
[2017-08-21 17:11] LABS: Bedside Glucose 249 mg/dL (70-110)
[2017-08-21] MEDS: Montelukast 10 MG Tablet PO (22:53)
[2017-08-21] MEDS: Rosuvastatin Calcium 5 MG Tablet PO (22:55)
[2017-08-21 23:26] LABS: Bedside Glucose 165 mg/dL (70-110)
[2017-08-22 02:48] VITALS: BP 141/52; PULSE 69; RESP 18; TEMP 37.1; O2SAT 94
[2017-08-22 07:15] LABS: Bedside Glucose 122 mg/dL (70-110)
[2017-08-22 08:20] LABS: Absolute Lymphocyte Count 0.75 X10^3/ul (0.83-4.51); Absolute Neutrophil Count 5.6 X10^3/uL (2.0-7.7); Basophil# 0.01 X10^3/uL; Basophil% 0.1 % (0-1); Eosinophil# 0.14 X10^3/uL; Hematocrit 32.8 % (37-47); Lymphocyte # 0.75 X10^3/ul (4.0); Lymphocyte % 10.8 % (19-41); Mean Corp Hgb Conc 30.5 g/gl (32-36); Mean Corpuscular Hgb 29.2 pg (27.0-32.0); Mean Corpuscular Volume 95.9 fL (81-99); Mean Platelet Vol. 10.4 fl (6.2-12.0); Monocyte# 0.41 X10^3/uL; Monocyte% 5.9 % (0-10); Neutrophil # 5.63 X10^3/uL (2.7-7.7); Neutrophil % 80.9 % (47-70); POSITIVE COUNT NO; POSITIVE DIFFERENTIAL NO; POSITIVE MORPHOLOGY NO; Platelet Count 114 K/mm3 (150-450); RBC Distribution Width CV 13.4 % (11.6-14.6); RBC Distribution Width SD 44.3 fl (35.1-43.9); Red Blood Count 3.42 M/mm3 (4.2-5.4)
[2017-08-22 08:30] LABS: BUN 43 mg/dL (7-18); Creatinine, Serum 2.11 mg/dL (0.55-1.02); Estimated Creatinine Clearance 26.46 ml/min; Glucose 119 mg/dL (74-106)
[2017-08-22 08:31] LABS: Anion Gap 6 (5-15); BUN/Creat Ratio 20.4 RATIO (10-20); Calcium,Total 7.9 mg/dL (8.5-10.1); Chloride 108 mmol/L (98-107); EST Glomerular Filtration Rate 25 mL/min (>60); Est Glom Filt Rate - Afr Amer 30 mL/min (>60); Potassium 5.2 mmol/L (3.5-5.1); Sodium Level 141 mmol/L (136-145)
[2017-08-22 09:04] VITALS: BP 118/53; PULSE 71; RESP 18; TEMP 37; O2SAT 95
[2017-08-22 09:08] VITALS: PULSE 71
[2017-08-22] MEDS: Metoprolol Tartrate 100 MG Tablet PO (09:08)
[2017-08-22] MEDS: Pantoprazole Sodium 40 MG Tablet PO (09:08)
[2017-08-22] MEDS: Losartan Potassium 100 MG Tablet PO (09:08)
[2017-08-22] MEDS: Isosorbide Mononitrate 30 MG Tablet PO (09:08)
[2017-08-22] MEDS: Spironolactone 25 MG Tablet PO (09:08)
[2017-08-22] MEDS: Gabapentin 100 MG Capsule PO (09:09)
[2017-08-22] MEDS: Furosemide 40 MG/4 ML Vial IV (09:09)
[2017-08-22] MEDS: Glucerna Shake 120 ML LIQUID PO (09:09)
[2017-08-22] MEDS: 0.9% NaCl Peripheral Flush Adult/Peds IV (09:09)
[2017-08-22] MEDS: Ferrous Gluconate 325 MG Tablet PO (09:09)
[2017-08-22] MEDS: Enoxaparin 40 MG/0.4 ML Syringe SC (09:09)
[2017-08-22] MEDS: Aspirin 81 MG TAB.CHEW PO (09:09)
[2017-08-22 13:06] LABS: Bedside Glucose 253 mg/dL (70-110)
--- NOTE | 2017-08-22 13:50 | DCINST_ITS ---
- Discharge Diagnoses Current Active Problems: Current Active and Chronic Problems Venous insufficiency of both lower extremities (Chronic) Other specified peripheral vascular diseases (Chronic) Ulcer of left lower extremity with fat layer exposed (Chronic) Ulcer of right lower extremity with fat layer exposed (Chronic) Delayed wound healing (Chronic) You will use the following diet at home:: Calorie/Carbohydrate Controlled ( specify 1200, 1400, etc) - 1800 ADA Your food should be the consistency of: Regular Your liquids should be the consistency of: Regular/Thin Discharge Activity: Return to Normal Activity Weight Bearing Status: Full weight bearing Additional Instructions: do not change dressing yourself Allergies/Adverse Reactions: Allergies Penicillins Allergy (Verified 03/30/17 17:21) Rash rosiglitazone maleate [From Avandia] Allergy (Verified 03/30/17 17:21) Swelling & diarrhea simvastatin [From Zocor] Allergy (Verified 03/30/17 17:21) Muscle weakness atorvastatin calcium [From Lipitor] Adverse Reaction (Verified 03/30/17 17:21) Muscle weakness esomeprazole magnesium [From Nexium] Adverse Reaction (Verified 03/30/17 17:21) Diarrhea lansoprazole [From Prevacid] Adverse Reaction (Verified 03/30/17 17:21) Diarrhea Sulfa (Sulfonamide Antibiotics) Adverse Reaction (Verified 03/30/17 17:21) Nausea/Vom/Diarrhea from PCP office records Medications to take at Discharge Aspirin [Aspirin, Baby] 81 mg PO DAILY@0800 10/20/14 Ferrous Gluconate 325 mg PO DAILY@0800 10/21/14 Metoprolol Tartrate [Lopressor (beta apryl)] 100 mg PO BID 10/21/14 Pantoprazole Sodium [Protonix] 40 mg PO BID 10/21/14 Rosuvastatin Calcium [Crestor] 2.5 mg PO QHS 10/21/14 Nitroglycerin [Nitrostat] 0.4 mg SUBLINGUAL Q5M PRN 11/24/14 Gabapentin [Neurontin] 100 mg PO BID 07/02/15 Ergocalciferol [Vitamin D] 50,000 units PO SA 02/16/16 Isosorbide Mononitrate [Isosorbide Mononitrate ER] 30 mg PO DAILY 02/16/16 Niacinamide [Niacin] 500 mg PO BID 02/16/16 Furosemide [Lasix] 40 mg PO DAILY 05/06/16 Montelukast Sodium [Singulair] 10 mg PO QHS 05/06/16 Spironolactone 25 mg PO DAILY 06/10/16 Losartan Potassium [Cozaar] 100 mg PO DAILY #30 tablet 06/14/16 Gauze Bandage [Rolled Gauze] 1 each TP DAILY #20 bandage 09/04/16 Gauze/Lanolin/Min Oil/[place]/Wax [Cuticerin 3X3 Dressing] 1 each TP DAILY #20 bandage 09/04/16 Gauze/Lanolin/Min Oil/[place]/Wax [Cuticerin 3X8 Dressing] 1 each TP DAILY #10 bandage 09/04/16 Insulin Aspart [Novolog Flexpen] 20 units SC TIDAC #1 flexpen 10/06/16 Ondansetron [Zofran Odt] 8 mg PO Q6H PRN PRN 03/31/17 Insulin Glargine,Hum.rec.anlog [Basaglar Kwikpen U-100] 52 unit SQ QHS 08/20/17 Primary Care Physician: Kmi Field MD [Primary Care Provider] - Please follow up with your Primary Care Physician in: next week Please Follow Up With: wound center When: next week
--- NOTE | 2017-08-22 14:00 | CASEMGMT ---
ALONSO BARR received update from physician that patient was agreeable to HHC. ALONSO BARR discussed discharge plans with patient. Patient stated that she is wanting home health care for nursing and has no preference on company as long as in network with insurance. ALONSO BARR updated patient that HHC would be set up on Thursday and CM would update patient with [facility] company. Patient voiced understanding regarding HHC being set up on Thursday. ALONSO BARR asked patient if her brother who lives with her could assist in dressing changes at home and patient replied yes. ALONSO BARR updated physician.
--- NOTE | 2017-08-22 14:08 | PCM.DC.POD ---
Discharge Activity: Return to Normal Activity, May Shower Weight Bearing Status: Full weight bearing Keep extremity elevated above heart level: Left Leg, Right Leg Call your doctor if your incision/area has: Continuous Slow Oozing, Sudden Increased Bleeding, Increased Pain/ Swelling, Increased Redness, Foul Smelling Discharge Call your doctor if you observe: Fever of 101 or Higher, Calf discomfort, Uncontrolled pain Cleanse incision/area with: Soap & Water Additional Dressing/Incision Instructions:: recommended lower extremity dressing care: change bilateral leg dressings daily with melgisorg, gauze, abdominal pad, kerlix, and dimas wrap (start on foot and end at proximal legs) Additional Instructions: I recommend an out patient vascular referral and an outpatient venous doppler with reflux examination for peripheral vascular disease and venous insufficiency work up, respectively. Allergies/Adverse Reactions: Allergies Penicillins Allergy (Verified 03/30/17 17:21) Rash rosiglitazone maleate [From Avandia] Allergy (Verified 03/30/17 17:21) Swelling & diarrhea simvastatin [From Zocor] Allergy (Verified 03/30/17 17:21) Muscle weakness atorvastatin calcium [From Lipitor] Adverse Reaction (Verified 03/30/17 17:21) Muscle weakness esomeprazole magnesium [From Nexium] Adverse Reaction (Verified 03/30/17 17:21) Diarrhea lansoprazole [From Prevacid] Adverse Reaction (Verified 03/30/17 17:21) Diarrhea Sulfa (Sulfonamide Antibiotics) Adverse Reaction (Verified 03/30/17 17:21) Nausea/Vom/Diarrhea from PCP office records Medications to take at Discharge Aspirin [Aspirin, Baby] 81 mg PO DAILY@79910/20/14 Ferrous Gluconate 325 mg PO DAILY@79910/21/14 Metoprolol Tartrate [Lopressor (beta apryl)] 100 mg PO BID 10/21/14 Pantoprazole Sodium [Protonix] 40 mg PO BID 10/21/14 Rosuvastatin Calcium [Crestor] 2.5 mg PO QHS 10/21/14 Nitroglycerin [Nitrostat] 0.4 mg SUBLINGUAL Q5M PRN 11/24/14 Gabapentin [Neurontin] 100 mg PO BID 07/02/15 Ergocalciferol [Vitamin D] 50,000 units PO SA 02/16/16 Isosorbide Mononitrate [Isosorbide Mononitrate ER] 30 mg PO DAILY 02/16/16 Niacinamide [Niacin] 500 mg PO BID 02/16/16 Furosemide [Lasix] 40 mg PO DAILY 05/06/16 Montelukast Sodium [Singulair] 10 mg PO QHS 05/06/16 Spironolactone 25 mg PO DAILY 06/10/16 Losartan Potassium [Cozaar] 100 mg PO DAILY #30 tablet 06/14/16 Gauze Bandage [Rolled Gauze] 1 each TP DAILY #20 bandage 09/04/16 Gauze/Lanolin/Min Oil/[place]/Wax [Cuticerin 3X3 Dressing] 1 each TP DAILY #20 bandage 09/04/16 Gauze/Lanolin/Min Oil/[place]/Wax [Cuticerin 3X8 Dressing] 1 each TP DAILY #10 bandage 09/04/16 Insulin Aspart [Novolog Flexpen] 20 units SC TIDAC #1 flexpen 10/06/16 Ondansetron [Zofran Odt] 8 mg PO Q6H PRN PRN 03/31/17 Insulin Glargine,Hum.rec.anlog [Basaglar Kwikpen U-100] 52 unit SQ QHS 08/20/17 Primary Care Physician: Kim Field MD [Primary Care Provider] - Please follow up with your Primary Care Physician in: next week Please Follow Up With: wound center When: next week Please Follow Up With: Proposed Discharge Date: 08/22/17
[2017-08-22 15:03] VITALS: BP 121/70; PULSE 78; RESP 20; TEMP 37.1; O2SAT 95
--- NOTE | 2017-08-23 21:43 | DS.PCM_ITS ---
Discharge Date and Diagnosis Date of Admission: 08/20/17 Date of Discharge: 08/22/17 - Primary Discharge Diagnosis #1 lower extremity lymphedema (chronic) with severe maceration of the skin #2 coronary artery disease #3 severe pulmonary hypertension #4 type 2 diabetes #5 self-neglect #6 chronic diastolic congestive heart failure - Secondary Discharge Diagnosis Chronic Problems Venous insufficiency of both lower extremities (Chronic) Other specified peripheral vascular diseases (Chronic) Ulcer of left lower extremity with fat layer exposed (Chronic) Ulcer of right lower extremity with fat layer exposed (Chronic) Delayed wound healing (Chronic) Noncompliance with treatment regimen (Chronic) 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) Diabetes mellitus type 2 in obese (Chronic) Aortic stenosis, mild (Chronic) Pulmonary arterial hypertension (Chronic) Pulmonary nodules (Chronic) Cholelithiasis (Chronic) Tricuspid regurgitation (Chronic) History of esophageal reflux (Chronic) History of hyperlipidemia (Chronic) History of hypertension (Chronic) S/P CABG (coronary artery bypass graft) (Chronic) Obesity (BMI 30.0-34.9) (Chronic) Stasis dermatitis of both legs (Chronic) Lymphedema of both lower extremities (Chronic) Heart failure with preserved ejection fraction (Chronic) 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 Patient admitted to not caring for herself properly and changing her leg wound dressings and had been on for 2 months. Patient gave the excuse that she had not had a wound care appointment for various reasons which did not make sense. Patient had chronic lymphedema of the legs. Examination of the patient in the ER revealed to be dirty and unkempt, her lower extremity dressings were foul-smelling and full of cat hair, patient had bag of potato chips under her shirt. These dressings were removed and there was noted to be chronic ulceration of the legs, there was a debridement of the right lateral calf area noted with some mild bleeding, there is no evidence of cellulitis on examination in the emergency room. Patient was admitted to [place] [address], patient was placed on IV Lasix and wound care was administered to her lower legs, she was seen in consultation by podiatry who felt that the patient needed some debridement but this was refused by the patient. There did not appear to be any critical limb ischemia noted, it was recommended that she follow up with wound care center upon discharge. Discussions were carried out with the patient and recommendations were made that she go to a [facility] facility for appropriate wound care-patient refused this suggestion and instead opted to go home but did agree to home care. There was discussion about her home situation and previous nursing services had refused to go to her home due to filth and insects. Patient admitted that she had bedbugs in her home but could not afford to have them exterminated. On 08/22/17, patient was seen and examined and felt to be in stable condition for discharge home, it was emphasized that the patient needed a follow-up with wound care the last week of July, arrangements will be made for home nursing services to see the patient at her home. Discharge Activity: Return to Normal Activity, October Shower Weight Bearing Status: Full weight bearing Keep extremity elevated above heart level: Left Leg, Right Leg Call your doctor if your incision/area has: Continuous Slow Oozing, Sudden Increased Bleeding, Increased Pain/ Swelling, Increased Redness, Foul Smelling Discharge Call your doctor if you observe: Fever of 101 or Higher, Calf discomfort, Uncontrolled pain Cleanse incision/area with: Soap & Water Additional Dressing/Incision Instructions:: recommended lower extremity dressing care: change bilateral leg dressings daily with melgisorg, gauze, abdominal pad, kerlix, and dimas wrap (start on foot and end at proximal legs) Home Medications: Medications to take at Discharge Aspirin [Aspirin, Baby] 81 mg PO DAILY@79910/20/14 Ferrous Gluconate 325 mg PO DAILY@79910/21/14 Metoprolol Tartrate [Lopressor (beta apryl)] 100 mg PO BID 10/21/14 Pantoprazole Sodium [Protonix] 40 mg PO BID 10/21/14 Rosuvastatin Calcium [Crestor] 2.5 mg PO QHS 10/21/14 Nitroglycerin [Nitrostat] 0.4 mg SUBLINGUAL Q5M PRN 11/24/14 Gabapentin [Neurontin] 100 mg PO BID 07/02/15 Ergocalciferol [Vitamin D] 50,000 units PO SA 02/16/16 Isosorbide Mononitrate [Isosorbide Mononitrate ER] 30 mg PO DAILY 02/16/16 Niacinamide [Niacin] 500 mg PO BID 02/16/16 Furosemide [Lasix] 40 mg PO DAILY 05/06/16 Montelukast Sodium [Singulair] 10 mg PO QHS 05/06/16 Spironolactone 25 mg PO DAILY 06/10/16 Losartan Potassium [Cozaar] 100 mg PO DAILY #30 tablet 06/14/16 Gauze Bandage [Rolled Gauze] 1 each TP DAILY #20 bandage 09/04/16 Gauze/Lanolin/Min Oil/[place]/Wax [Cuticerin 3X3 Dressing] 1 each TP DAILY #20 bandage 09/04/16 Gauze/Lanolin/Min Oil/[place]/Wax [Cuticerin 3X8 Dressing] 1 each TP DAILY #10 bandage 09/04/16 Insulin Aspart [Novolog Flexpen] 20 units SC TIDAC #1 flexpen 10/06/16 Ondansetron [Zofran Odt] 8 mg PO Q6H PRN PRN 03/31/17 Insulin Glargine,Hum.rec.anlog [Basaglar Kwikpen U-100] 52 unit SQ QHS 08/20/17 Primary Care Physician: Kim Field MD [Primary Care Provider] - Please follow up with your Primary Care Physician in: next week Please Follow Up With: wound center When: next week Please Follow Up With: Additional Instructions: I recommend an out patient vascular referral and an outpatient venous doppler with reflux examination for peripheral vascular disease and venous insufficiency work up, respectively. Disposition: Home with Home Health Minutes spent on discharge:: 34 Patient Condition:: Stable Meaningful Use Info Meaningful Use Diagnoses (Choose all that apply): None applicable
--- NOTE | 2017-08-24 10:38 | CASEMGMT ---
ALONSO BARR follow-up from the weekend for home health care set-up. ALONSO BARR notes [facility] ALONSO BARR faxed referral to [facility] and spoke with Kiki Tsai, director at [facility], who states they are willing to accept and will send a [id number] request to Dr. Field since Dr. Echeverria is not in the hospital today to complete the [id number]. ALONSO BARR called patient to make aware of referral, patient did not answer, and no opportunity to leave a message. Gera Flynn BSN, RN-BC, CCM
--- NOTE | 2017-08-24 10:43 | CCN.REFER ---
PATIENT DECLINES CCN AT THIS TIME. DOES NOT WANT STUDENTS OR CCN STAFF ENTERING HOME.
== END 2017-08-22 16:09 | disposition home or self-care (01) | DRG 271 ==
LOC: ED 07:21 → MS3 08:21
PROVIDERS: Admitting Provider Internal Medicine; Emergency Provider Emergency Medicine; Family Provider Internal Medicine; PCP Internal Medicine; Visit Provider Internal Medicine
DX: L97.929 Non-pressure chronic ulcer of unspecified part of left lower leg with unspecified severity (principal); E11.40 Type 2 diabetes mellitus with diabetic neuropathy, unspecified; E11.22 Type 2 diabetes mellitus with diabetic chronic kidney disease; I27.20 Pulmonary hypertension, unspecified; E66.01 Morbid (severe) obesity due to excess calories; I50.32 Chronic diastolic (congestive) heart failure; N18.3 Chronic kidney disease, stage 3 (moderate); L97.919 Non-pressure chronic ulcer of unspecified part of right lower leg with unspecified severity; I89.0 Lymphedema, not elsewhere classified; R23.8 Other skin changes; R62.7 Adult failure to thrive; I25.10 Atherosclerotic heart disease of native coronary artery without angina pectoris; Z95.1 Presence of aortocoronary bypass graft; Z87.891 Personal history of nicotine dependence; Z68.35 Body mass index [BMI] 35.0-35.9, adult; I87.2 Venous insufficiency (chronic) (peripheral); Z79.4 Long term (current) use of insulin
CPT/HCPCS: 36415; 80048; 81001; 82962; 84484; 85025; 85027; 93005; 93970; 97110; 97162; 97166; 97530; 99285; A4216; J1940; J2405

== ENCOUNTER 2017-09-25 15:00 | Outpatient (RCR) | payer MEDICAID, SELFPAY ==
[2017-09-03 11:41] VITALS: BP 141/64; PULSE 71; RESP 16; TEMP 35.8; BMI 30.4
--- NOTE | 2017-09-03 18:19 | PCM.WC.HP ---
(1) Maceration of skin Status: Acute Code(s): L98.8 - Other specified disorders of the skin and subcutaneous tissue (2) Acquired deformity of toe of both feet Status: Acute Code(s): M20.61 - Acquired deformities of toe(s), unspecified, right foot; M20.62 - Acquired deformities of toe(s), unspecified, left foot (3) Diabetes mellitus type 2 in obese Status: Chronic Code(s): E11.9 - Type 2 diabetes mellitus without complications; E66.9 - Obesity, unspecified (4) Lymphedema of both lower extremities Status: Chronic Code(s): I89.0 - Lymphedema, not elsewhere classified (5) Noncompliance with treatment regimen Status: Chronic Code(s): Z91.19 - Patient's noncompliance with other medical treatment and regimen (6) Stasis dermatitis of both legs Status: Chronic Code(s): I83.11 - Varicose veins of right lower extremity with inflammation; I83.12 - Varicose veins of left lower extremity with inflammation (7) Ulcer of left lower extremity with fat layer exposed Status: Chronic Code(s): L97.922 - Non-pressure chronic ulcer of unspecified part of left lower leg with fat layer exposed (8) Ulcer of right lower extremity with fat layer exposed Status: Chronic Code(s): L97.912 - Non-pressure chronic ulcer of unspecified part of right lower leg with fat layer exposed History of Present Illness Date of Service: 09/03/17 Chief Complaint: Lower extremity ulcer and Maceration s/p recent hospital admission. History of Wound: Ms. Duque is a 66-year-old with a complex past medical history who is here as a follow up from recent hospital admission for lower extremity edema/ulcers. She has been seen here in the past most recently in May and typically does not routinely follow-up. She was seen most recently in the hospital and managed as a case of bilateral lower extremity ulcers and maceration. She was also noted to have significant maceration of both feet with foul-smelling creamy discharge and toe deformities. She is a poor historian and cannot really give a clear history of onset. She was noted to have had an [place] wrap/Unna boot on for about 2 months. She was seen by Dr. Michael and surgical debridement was recommended however, patient declined. She had venous studies done in July which were without any significant abnormalities. She denies any complaints at this time. Past Medical History Past Medical History: Chronic Problems Venous insufficiency of both lower extremities (Chronic) Other specified peripheral vascular diseases (Chronic) Ulcer of left lower extremity with fat layer exposed (Chronic) Ulcer of right lower extremity with fat layer exposed (Chronic) Delayed wound healing (Chronic) Noncompliance with treatment regimen (Chronic) 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) Diabetes mellitus type 2 in obese (Chronic) Aortic stenosis, mild (Chronic) Pulmonary arterial hypertension (Chronic) Pulmonary nodules (Chronic) Cholelithiasis (Chronic) Tricuspid regurgitation (Chronic) History of esophageal reflux (Chronic) History of hyperlipidemia (Chronic) History of hypertension (Chronic) S/P CABG (coronary artery bypass graft) (Chronic) Obesity (BMI 30.0-34.9) (Chronic) Stasis dermatitis of both legs (Chronic) Lymphedema of both lower extremities (Chronic) Heart failure with preserved ejection fraction (Chronic) 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) Thrombocytopenia (Chronic) Neuropathy, peripheral (Chronic) Surgical History: coronary bypass surgery, - - Right femoral bypass surgery, cochlear impants Allergies/Adverse Reactions: Allergies Penicillins Allergy (Verified 03/30/17 17:21) Rash rosiglitazone maleate [From Avandia] Allergy (Verified 03/30/17 17:21) Swelling & diarrhea simvastatin [From Zocor] Allergy (Verified 03/30/17 17:21) Muscle weakness atorvastatin calcium [From Lipitor] Adverse Reaction (Verified 03/30/17 17:21) Muscle weakness esomeprazole magnesium [From Nexium] Adverse Reaction (Verified 03/30/17 17:21) Diarrhea lansoprazole [From Prevacid] Adverse Reaction (Verified 03/30/17 17:21) Diarrhea Sulfa (Sulfonamide Antibiotics) Adverse Reaction (Verified 03/30/17 17:21) Nausea/Vom/Diarrhea from PCP office records Home Medications: Ambulatory Orders Medication Instructions Recorded Aspirin [Aspirin, Baby] 81 mg PO DAILY@0800 10/20/14 Ferrous Gluconate 325 mg PO DAILY@0800 10/21/14 Metoprolol Tartrate [Lopressor 100 mg PO BID 10/21/14 (beta apryl)] Pantoprazole Sodium [Protonix] 40 mg PO BID 04/25/15 Rosuvastatin Calcium [Crestor] 2.5 mg PO QHS 10/21/14 Nitroglycerin [Nitrostat] 0.4 mg SUBLINGUAL Q5M PRN 11/24/14 Gabapentin [Neurontin] 100 mg PO BID 07/02/15 Ergocalciferol [Vitamin D] 50,000 units PO SA 02/16/16 Isosorbide Mononitrate [Isosorbide 30 mg PO DAILY 02/16/16 Mononitrate ER] Niacinamide [Niacin] 500 mg PO BID 02/16/16 Furosemide [Lasix] 40 mg PO DAILY 05/06/16 Montelukast Sodium [Singulair] 10 mg PO QHS 05/06/16 Spironolactone 25 mg PO DAILY 06/10/16 Losartan Potassium [Cozaar] 100 mg PO DAILY #30 tablet 06/14/16 Gauze Bandage [Rolled Gauze] 1 each TP DAILY #20 bandage 09/04/16 Gauze/Lanolin/Min Oil/Ausitn/Wax 1 each TP DAILY #20 bandage 09/04/16 [Cuticerin 3X3 Dressing] Gauze/Lanolin/Min Oil/[place]/Wax 1 each TP DAILY #10 bandage 09/04/16 [Cuticerin 3X8 Dressing] Insulin Aspart [Novolog Flexpen] 20 units SC TIDAC #1 flexpen 10/06/16 Ondansetron [Zofran Odt] 8 mg PO Q6H PRN PRN 03/31/17 Insulin Glargine,Hum.rec.anlog 52 unit SQ QHS 08/20/17 [Basaglar Kwikpen U-100] - Family History Sibling Heart Disease Maternal No pertinent history Paternal No pertinent history Smoking Status: Former smoker Review of Systems Constitutional: Denies: Anorexia, Chills, Fever Eyes: Denies: Pain, Redness HEENT: Denies: Difficulty Hearing, Difficulty Swallowing Cardiovascular: Denies: Chest Pain, Chest Tightness Respiratory: Denies: Cough, Hemoptysis Gastrointestinal: Denies: Abdominal Pain, Hematemesis, Vomiting Skin: Reports: Dryness. Denies: Jaundice - Physical Exam Vital Signs Temp Pulse Resp BP 96.4 F L 71 16 141/64 H 09/03/17 11:41 09/03/17 11:41 09/03/17 11:41 09/03/17 11:41 General: Alert, Cooperative, No apparent distress HEENT: Atraumatic, Normocephalic Oral: Moist Mucosa Neck: Supple Lungs: Normal air movement Cardiovascular: Regular rate, Regular Rhythm, Normal S1, Normal S2, Murmur Abdomen: Soft, Non Tender, Obese Skin: Ulcer/ Wound Wound Measurements and Assessment WC - Nurse 1 - General Ulcer Measurement Start: 09/03/17 11:35 Freq: Status: Active Protocol: Activity Type Activity Date Activity User E-Sign Co-Sign Detail Recorded Client Recorded Date Recorded By Document 09/03/17 11:41 [facility] [id number] 09/03/17 12:11 [facility] 09/03/17 11:41 Wound Center Nurse 1 [Ulcer Assessment] #5- LLE CIRCUMFERENTIAL -Combined with other wound No -Current Size (cm) - Length 48.5 -Current Size (cm) - Width 42.4 -Current Size (cm) - Depth 0.1 -Total Square Cm 2056.40 -Date of Last Picture (Recall this 09/03/17 field) -Photo Taken Yes -Epithelialization None Present -Tunneling No -Undermining/Tunneling No -Exudate Amt Large (67-100%) -Exudate Type Serosanguineous -Structure Exposed None/Limited to Skin Breakdown -Texture (Melvi-wound Skin Appearance) Scarring Rash -Moisture (Meliv-wound Skin Appearance Maceration ) Weeping Dry/Scaly -Color (Melvi-wound Skin Appearance) Erythema -Temperature (Melvi-wound Skin No Abnormality Appearance) (Pt Warm) -Tenderness on Palpation (Melvi-wound No Skin Appearance) -Ulcer Cleansing Wound Cleanser -Foul Odor after Cleansing No -Anesthetic Used 4% Lidocaine Solution #4- RLE CIRCUMFERENTIAL -Combined with other wound No -Current Size (cm) - Length 46.5 -Current Size (cm) - Width 39.9 -Current Size (cm) - Depth 0.1 -Total Square Cm 1855.35 -Date of Last Picture (Recall this 09/03/17 field) -Photo Taken Yes -Epithelialization None Present -Tunneling No -Undermining/Tunneling No -Circular Undermining No -Exudate Amt Large (67-100%) -Exudate Type Serosanguineous -Structure Exposed None/Limited to Skin Breakdown -Texture (Melvi-wound Skin Appearance) Scarring Rash -Moisture (Melvi-wound Skin Appearance Maceration ) Weeping Dry/Scaly -Color (Melvi-wound Skin Appearance) Assessed Erythema -Temperature (Melvi-wound Skin No Abnormality Appearance) (Pt Warm) -Tenderness on Palpation (Melvi-wound No Skin Appearance) -Ulcer Cleansing Wound Cleanser -Foul Odor after Cleansing No -Anesthetic Used 4% Lidocaine Solution [Edema Assessment] -Lower Limb Edema Present Yes -Right Calf (cm) 39.9 -Right Ankle (cm) 24.4 -Left Calf (cm) 42.4 -Left Ankle (cm) 22.6 Musculoskeletal: No Muscle Wasting Neurological: Neuro grossly intact Psych/Mental Status: Normal Affect Debridement Note Wound debrided: Right Dorsum foot Wound Grade/Stage: quintana II Type of Debridement: Selective debridement Anesthesia Used: 4% Lidocaine Solution Depth: Down to and including healthy tissue, in the subcutaneous layer Percentage of wound debrided: 50 Instrument Used: 5mm curette Tissue Removed: Devitalized tissue, macerated skin, slough, fibrin Severity: Fat Layer Exposed Amount of bleeding with debridement: Mild Bleeding Controlled with: Pressure Patient tolerated procedure well - Additional Wound Wound debrided: Left Dorsum foot Wound Grade/Stage: Quintana II Type of Debridement: Selective debridement Anesthesia Used: 4% Lidocaine Solution Depth: Down to and including healthy tissue, in the subcutaneous layer Percentage of wound debrided: 50 Instrument Used: 5mm curette Tissue Removed: Devitalized tissue, Macerated skin, slough and Fibrin Severity: Fat Layer Exposed Amount of bleeding with debridement: Mild Bleeding Controlled with: Pressure Patient tolerated procedure: Patient tolerated procedure well Assessment/Plan Assessment: Bilateral lower extremity lymphedema. Stasis dermatitis. Bilateral feet ulcers and severe maceration. Bilateral toe deformity. Plan: She is status post recent hospital admission for significant maceration and stasis dermatitis of the bilateral lower extremity. During that hospital stay Dr. Michael was consulted and suggested debridement however per documentation, patient declined. Still significant maceration of feet bilaterally with foul-smelling odor. Stasis dermatitis is noted of both lower extremities extending up to the knee. Bilateral dorsal feet ulcer however covered by significant slough burden and maceration. Selective debridement of her feet was done and cultures taken. Procedure was well-tolerated. Apply Xeroform to bilateral ulcers with light coban wrap. Advised to come in for nurse visit on Thursday. Due to significant maceration and toe deformities I believe she will be better served by a supervisor chlorine liquefaction and will therefore transfer care over to podiatry here at the wound center. Avoid idle standing. Elevate lower extremities when seated. Patient urged to be compliant. Optimal blood sugar control. Follow-up with culture results. Follow-up in 1 week with the wound center. This note was generated with [employer] dictation software. It may contain incorrect words, spelling, and punctuation that were not noted in checking the note before signing.
[2017-09-08 16:08] VITALS: BP 150/88; PULSE 88; RESP 16; TEMP 37.3; BMI 30.4
--- NOTE | 2017-09-08 17:14 | PCM.WC.HP ---
(1) Non-pressure chronic ulcer of other part of right lower leg limited to breakdown of skin Status: Acute Current Visit: Yes Code(s): L97.811 - Non-pressure chronic ulcer of other part of right lower leg limited to breakdown of skin (2) Non-pressure chronic ulcer of other part of left lower leg limited to breakdown of skin Status: Acute Current Visit: Yes Code(s): L97.821 - Non-pressure chronic ulcer of other part of left lower leg limited to breakdown of skin (3) Non-pressure chronic ulcer of other part of right foot limited to breakdown of skin Status: Acute Current Visit: Yes Code(s): L97.511 - Non-pressure chronic ulcer of other part of right foot limited to breakdown of skin (4) Non-pressure chronic ulcer of other part of left foot limited to breakdown of skin Status: Acute Current Visit: Yes Code(s): L97.521 - Non-pressure chronic ulcer of other part of left foot limited to breakdown of skin (5) Type 2 diabetes mellitus with diabetic peripheral angiopathy without gangrene Status: Acute Current Visit: Yes Qualifiers: 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 History of Wound: Ms. Duque is a 66-year-old with a complex past medical history who is here as a follow up from recent hospital admission for lower extremity edema/ulcers. She has been seen here in the past most recently in May and typically does not routinely follow-up. She was seen most recently in the hospital and managed as a case of bilateral lower extremity ulcers and maceration. She was also noted to have significant maceration of both feet with foul-smelling creamy discharge and toe deformities. She is a poor historian and cannot really give a clear history of onset. She was noted to have had an Quincy wrap/Unna boot on for about 2 months. She was seen by Dr. Michael and surgical debridement was recommended however, patient declined. She had venous studies done in July which were without any significant abnormalities. She saw Dr. Alicea last week and she recommended podiatry. Pt has superficial macerated ulcerations diffusely on the legs as well as dorsal bilateral forefeet. Ulcerations appear due to drainage. Pt has poor hygeine. Of note, patient was discharged by home health due to bed bug infestation in her house. Past Medical History Past Medical History: Chronic Problems Venous insufficiency of both lower extremities (Chronic) Other specified peripheral vascular diseases (Chronic) Ulcer of left lower extremity with fat layer exposed (Chronic) Ulcer of right lower extremity with fat layer exposed (Chronic) Delayed wound healing (Chronic) Noncompliance with treatment regimen (Chronic) 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) Diabetes mellitus type 2 in obese (Chronic) Aortic stenosis, mild (Chronic) Pulmonary arterial hypertension (Chronic) Pulmonary nodules (Chronic) Cholelithiasis (Chronic) Tricuspid regurgitation (Chronic) History of esophageal reflux (Chronic) History of hyperlipidemia (Chronic) History of hypertension (Chronic) S/P CABG (coronary artery bypass graft) (Chronic) Obesity (BMI 30.0-34.9) (Chronic) Stasis dermatitis of both legs (Chronic) Lymphedema of both lower extremities (Chronic) Heart failure with preserved ejection fraction (Chronic) 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) Thrombocytopenia (Chronic) Neuropathy, peripheral (Chronic) Surgical History: coronary bypass surgery, - - Right femoral bypass surgery, cochlear impants Allergies/Adverse Reactions: Allergies Penicillins Allergy (Verified 03/30/17 17:21) Rash rosiglitazone maleate [From Avandia] Allergy (Verified 03/30/17 17:21) Swelling & diarrhea simvastatin [From Zocor] Allergy (Verified 03/30/17 17:21) Muscle weakness atorvastatin calcium [From Lipitor] Adverse Reaction (Verified 03/30/17 17:21) Muscle weakness esomeprazole magnesium [From Nexium] Adverse Reaction (Verified 03/30/17 17:21) Diarrhea lansoprazole [From Prevacid] Adverse Reaction (Verified 03/30/17 17:21) Diarrhea Sulfa (Sulfonamide Antibiotics) Adverse Reaction (Verified 03/30/17 17:21) Nausea/Vom/Diarrhea from PCP office records Home Medications: Ambulatory Orders Medication Instructions Recorded Aspirin [Aspirin, Baby] 81 mg PO DAILY@0810/20/14 Ferrous Gluconate 325 mg PO DAILY@0810/21/14 Metoprolol Tartrate [Lopressor 100 mg PO BID 10/21/14 (beta apryl)] Pantoprazole Sodium [Protonix] 40 mg PO BID 10/21/14 Rosuvastatin Calcium [Crestor] 2.5 mg PO QHS 10/21/14 Nitroglycerin [Nitrostat] 0.4 mg SUBLINGUAL Q5M PRN 11/24/14 Gabapentin [Neurontin] 100 mg PO BID 07/02/15 Ergocalciferol [Vitamin D] 50,000 units PO SA 02/16/16 Isosorbide Mononitrate [Isosorbide 30 mg PO DAILY 02/16/16 Mononitrate ER] Niacinamide [Niacin] 500 mg PO BID 02/16/16 Furosemide [Lasix] 40 mg PO DAILY 05/06/16 Montelukast Sodium [Singulair] 10 mg PO QHS 05/06/16 Spironolactone 25 mg PO DAILY 06/10/16 Losartan Potassium [Cozaar] 100 mg PO DAILY #30 tablet 06/14/16 Gauze Bandage [Rolled Gauze] 1 each TP DAILY #20 bandage 09/04/16 Gauze/Lanolin/Min Oil/[place]/Wax 1 each TP DAILY #20 bandage 09/04/16 [Cuticerin 3X3 Dressing] Gauze/Lanolin/Min Oil/[place]/Wax 1 each TP DAILY #10 bandage 09/04/16 [Cuticerin 3X8 Dressing] Insulin Aspart [Novolog Flexpen] 20 units SC TIDAC #1 flexpen 10/06/16 Ondansetron [Zofran Odt] 8 mg PO Q6H PRN PRN 03/31/17 Insulin Glargine,Hum.rec.anlog 52 unit SQ QHS 08/20/17 [Basaglar Kwikpen U-100] - Family History Sibling Heart Disease Maternal No pertinent history Paternal No pertinent history Lives: With Family Smoking Status: Former smoker Tobacco Use: Non-smoker Alcohol: Rare Drugs: None Review of Systems Constitutional: Denies: Chills, Fever, Weight Change Eyes: Denies: Pain, Vision Change HEENT: Denies: Difficulty Hearing, Difficulty Swallowing, Sinus Congestion Cardiovascular: Reports: Edema. Denies: Chest Pain, Palpitations Respiratory: Denies: Cough, Shortness of Breath Gastrointestinal: Denies: Diarrhea, Nausea, Vomiting Genitourinary: Denies: Dysuria, Hematuria Skin: Reports: Skin Changes, Wounds Endocrine: Denies: Heat/ Cold Intolerance, Polydipsia, Polyuria Hematologic/ Lymphatic: Denies: Easy Bruising, Easy Bleeding - Physical Exam Vital Signs Temp Pulse Resp BP 99.1 F 88 16 150/88 H 09/08/17 16:08 09/08/17 16:08 09/08/17 16:08 09/08/17 16:08 General: Alert, Oriented x3, Cooperative, No apparent distress Extremities: No clubbing, No cyanosis, Capillary Refill Less than 3 Seconds, No Calf Tenderness, Diminished Peripheral Pulses, Edema Skin: Ulcer/ Wound - Superficial ulcerations diffusely on both legs as well as dorsal forefoot and interdigitally bilateral feet with no erythema, no malodor, no pus, no calor. No clinical signs of acute bacterial infection noted. See nurses wound/edema assessment below. Wound Measurements and Assessment WC - Nurse 1 - General Ulcer Measurement Start: 09/03/17 11:35 Freq: Status: Active Protocol: Activity Type Activity Date Activity User E-Sign Co-Sign Detail Recorded Client Recorded Date Recorded By Document 09/08/17 16:08 DV [id number] 09/08/17 16:48 DV 09/08/17 16:08 Wound Center Nurse 1 [Ulcer Assessment] #5- LLE CIRCUMFERENTIAL -Combined with other wound No -Current Size (cm) - Length 33.2 -Current Size (cm) - Width 25.6 -Current Size (cm) - Depth 0.1 -Total Square Cm 849.92 -Photo Taken No -Epithelialization None Present -Tunneling No -Undermining/Tunneling No -Circular Undermining No -Classification - Thickness Full Thickness without Exposed Support Structure -Exudate Amt Large (67-100%) -Exudate Type Yellow/Green -Granulation Amt None Present (0 %) -Granulation Quality N/A -Slough/Fibrin Yes -Necrosis Amt Large (67-100%) -Necrotic Tissue Type Adherent Slough -Structure Exposed None/Limited to Skin Breakdown -Texture (Melvi-wound Skin Appearance) Assessed Callus Excoriation Localized Edema Scarring -Moisture (Melvi-wound Skin Appearance Assessed ) Maceration Weeping -Color (Melvi-wound Skin Appearance) Assessed Erythema -Temperature (Melvi-wound Skin No Abnormality Appearance) (Pt Warm) -Tenderness on Palpation (Melvi-wound Yes Skin Appearance) -Ulcer Cleansing Wound Cleanser -Foul Odor after Cleansing Yes -Anesthetic Used 4% Lidocaine Solution #4- RLE CIRCUMFERENTIAL -Combined with other wound No -Current Size (cm) - Length 35.0 -Current Size (cm) - Width 10.0 -Current Size (cm) - Depth 0.1 -Total Square Cm 350.00 -Photo Taken No -Epithelialization None Present -Tunneling No -Undermining/Tunneling No -Circular Undermining No -Exudate Amt Large (67-100%) -Exudate Type Yellow/Green -Wound Margin Indistinct, Non -Visible -Granulation Amt None Present (0 %) -Granulation Quality N/A -Slough/Fibrin Yes -Necrosis Amt Large (67-100%) -Necrotic Tissue Type Adherent Slough -Structure Exposed None/Limited to Skin Breakdown -Texture (Melvi-wound Skin Appearance) Assessed Friable Localized Edema Scarring -Moisture (Melvi-wound Skin Appearance Assessed ) Maceration Weeping -Color (Melvi-wound Skin Appearance) Assessed Erythema -Temperature (Melvi-wound Skin No Abnormality Appearance) (Pt Warm) -Tenderness on Palpation (Melvi-wound Yes Skin Appearance) -Ulcer Cleansing Wound Cleanser -Foul Odor after Cleansing Yes -Anesthetic Used 4% Lidocaine Solution [Edema Assessment] -Lower Limb Edema Present Yes -Right Calf (cm) 41.5 -Right Ankle (cm) 25.0 -Left Calf (cm) 41.0 -Left Ankle (cm) 23.0 Musculoskeletal: No Tenderness to Palpation of Joints or Extremities Neurological: Motor Exam 5/5 strength throughout, Muscle tone normal, Sensory exam intact to light touch and pain, Coordination normal, - - LOPS with SWMF 5.07 b/l feet Psych/Mental Status: Alert and oriented to time, place, person, mood and affect - wnl Debridement Note Post-Debridement Measurements/Treatment WC - Nurse 2 - General Ulcer CM Notes Start: 09/03/17 11:35 Freq: Status: Active Protocol: Activity Type Activity Date Activity User E-Sign Co-Sign Detail Recorded Client Recorded Date Recorded By Document 09/03/17 13:00 DV [id number] 09/04/17 17:26 DV 09/03/17 13:00 Wound Center Nurse 2 #5- LLE CIRCUMFERENTIAL -Time 17:19 -Correct Patient Yes -Correct Side, Site, Position Yes -Correct Procedure Yes -Procedure Performed Yes -Type of Procedure Debridement -Clinical Debridement Selective -Post Debridement Size (cm) - Length 48.0 -Post Debridement Size (cm) - Width 42.4 -Post Debridement Size (cm) - Depth 0.1 -Total Square Cm 2035.20 -Wound/Ulcer Outcome Failed Graft -Ulcer Cleansing Rinsed/ Irrigated with Saline -Foul Odor after Cleansing No -Bioengineered Tissue No -Bleeding Controlled with Pressure -Other 25% -Treatment Response Procedure Tolerated Well #4- RLE CIRCUMFERENTIAL -Time 17:23 -Correct Patient Yes -Correct Side, Site, Position Yes -Correct Procedure Yes -Procedure Performed Yes -Type of Procedure Debridement -Clinical Debridement Selective -Post Debridement Size (cm) - Length 46.0 -Post Debridement Size (cm) - Width 39.0 -Post Debridement Size (cm) - Depth 0.1 -Total Square Cm 1794.00 -Wound/Ulcer Outcome Not Healed -Ulcer Cleansing Not Cleansed -Foul Odor after Cleansing No -Bioengineered Tissue No -Bleeding Controlled with Pressure -Other 25% -Treatment Response Procedure Not Tolerated Well Pain Scale: 0-10 Numeric Is Patient Pain Free? 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 Pt has hx arterial fem-pop bypass RLE. Ordered arterial dopplers of lower extremities. Recently had venous duplex. Weave aquacel ag between all toes, apply silvercel to remaining ulcerations, change 2x/week. Pt discharged from home health due to bed bug problems, so she will come here for nurse visit for dressing change. Plan for greater compression after arterial study if able. Monitor for redness, pus, malodor,warmth, pain, inc swelling as well as N/V/F/C and go to the ED with these. Disc importance of tight blood sugar control, adequate nutrition elaine increased protein intake to promote healing. Return in 1 week to see me, 3 days for nurse visit. Call with questions.
[2017-09-11 15:29] VITALS: BP 148/63; PULSE 70; RESP 16; TEMP 36; BMI 30.4
[2017-09-15 14:02] VITALS: BP 145/69; PULSE 66; RESP 20; TEMP 36.6; BMI 30.4
--- NOTE | 2017-09-15 14:45 | PCM.WC.PN ---
(1) Non-pressure chronic ulcer of other part of right lower leg limited to breakdown of skin Status: Acute Current Visit: Yes Code(s): L97.811 - Non-pressure chronic ulcer of other part of right lower leg limited to breakdown of skin (2) Non-pressure chronic ulcer of other part of left lower leg limited to breakdown of skin Status: Resolved Current Visit: No Code(s): L97.821 - Non-pressure chronic ulcer of other part of left lower leg limited to breakdown of skin (3) Non-pressure chronic ulcer of other part of right foot limited to breakdown of skin Status: Acute Current Visit: Yes Code(s): L97.511 - Non-pressure chronic ulcer of other part of right foot limited to breakdown of skin (4) Non-pressure chronic ulcer of other part of left foot limited to breakdown of skin Status: Acute Current Visit: Yes Code(s): L97.521 - Non-pressure chronic ulcer of other part of left foot limited to breakdown of skin (5) Type 2 diabetes mellitus with diabetic peripheral angiopathy without gangrene Status: Acute Current Visit: Yes 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 History of Wound: Ms. Duque is a 66-year-old with a complex past medical history who is here as a follow up from recent hospital admission for lower extremity edema/ulcers. She has been seen here in the past most recently in May and typically does not routinely follow-up. She was seen most recently in the hospital and managed as a case of bilateral lower extremity ulcers and maceration. She was also noted to have significant maceration of both feet with foul-smelling creamy discharge and toe deformities. She is a poor historian and cannot really give a clear history of onset. She was noted to have had an [place] wrap/Unna boot on for about 2 months. She was seen by Dr. Michael and surgical debridement was recommended however, patient declined. She had venous studies done in July which were without any significant abnormalities. She saw Dr. Alicea last week and she recommended podiatry. Pt has superficial macerated ulcerations diffusely on the legs as well as dorsal bilateral forefeet. Ulcerations appear due to drainage. Pt has poor hygeine. Of note, patient was discharged by home health due to bed bug infestation in her house. 09/15--Improving with Quincy wraps for compression, silver cell to open area on R francis, weaving aquacel ag interdigitally. Pt did come in last Thursday for nurse visit. Denies N/V/F/C. Denies pus, malodor, warmth, pain. Continued swelling of legs. Arterial testing scheduled for next week. Progress of Wound: Improving. - Physical Exam Vital Signs Temp Pulse Resp BP 97.8 F 66 20 H 145/69 H 09/15/17 14:02 09/15/17 14:02 09/15/17 14:02 09/15/17 14:02 General: Alert, Oriented x3, Cooperative, No apparent distress Skin: Ulcer/ Wound - R francis, dorsal R forefoot, dorsal L forefoot, interdigitally all toes R and L foot with no erythema, no malodor, no pus, no calor. No clinical signs of acute bacterial infection noted. See nurses wound/edema assessment below. Wound Measurements and Assessment WC - Nurse 1 - General Ulcer Measurement Start: 09/03/17 11:35 Freq: Status: Active Protocol: Activity Type Activity Date Activity User E-Sign Co-Sign Detail Recorded Client Recorded Date Recorded By Document 09/15/17 14:02 DL [id number] 09/15/17 14:20 DL 09/15/17 14:02 Wound Center Nurse 1 [Ulcer Assessment] #5- LLE CIRCUMFERENTIAL -Current Size (cm) - Length 33 -Current Size (cm) - Width 21 -Current Size (cm) - Depth 0.1 -Total Square Cm 693 -Photo Taken No -Exudate Amt Large (67-100%) -Exudate Type Serosanguineous -Wound Margin Indistinct, Non -Visible -Granulation Amt Medium (34-66%) -Granulation Quality Angustura -Necrosis Amt Medium (34-66%) -Necrotic Tissue Type Adherent Slough -Structure Exposed N/A -Texture (Melvi-wound Skin Appearance) Excoriation -Moisture (Melvi-wound Skin Appearance Maceration ) -Color (Melvi-wound Skin Appearance) Erythema Hemosiderin Staining -Temperature (Melvi-wound Skin No Abnormality Appearance) (Pt Warm) -Ulcer Cleansing Wound Cleanser -Foul Odor after Cleansing No -Anesthetic Used 4% Lidocaine Solution #4- RLE CIRCUMFERENTIAL -Current Size (cm) - Length 35 -Current Size (cm) - Width 9 -Current Size (cm) - Depth 0.1 -Total Square Cm 315 -Photo Taken No -Exudate Amt Large (67-100%) -Exudate Type Serosanguineous -Wound Margin Indistinct, Non -Visible -Granulation Amt Medium (34-66%) -Granulation Quality Angustura -Necrosis Amt Medium (34-66%) -Necrotic Tissue Type Adherent Slough -Structure Exposed N/A -Texture (Melvi-wound Skin Appearance) Excoriation -Moisture (Melvi-wound Skin Appearance Maceration ) -Color (Melvi-wound Skin Appearance) Erythema Hemosiderin Staining -Temperature (Melvi-wound Skin No Abnormality Appearance) (Pt Warm) -Ulcer Cleansing Wound Cleanser -Foul Odor after Cleansing No -Anesthetic Used 4% Lidocaine Solution [Edema Assessment] -Right Calf (cm) 41 -Right Ankle (cm) 21 -Left Calf (cm) 43 -Left Ankle (cm) 23 Debridement Note Post-Debridement Measurements/Treatment WC - Nurse 2 - General Ulcer CM Notes Start: 09/03/17 11:35 Freq: Status: Active Protocol: Activity Type Activity Date Activity User E-Sign Co-Sign Detail Recorded Client Recorded Date Recorded By Document 09/03/17 13:00 DV [id number] 09/04/17 17:26 DV Document 09/08/17 17:09 MW [id number] 09/08/17 17:17 MW 09/03/17 09/08/17 13:00 17:09 Wound Center Nurse 2 #5- LLE CIRCUMFERENTIAL -Time 17:19 17:15 -Correct Patient Yes Yes -Correct Side, Site, Position Yes Yes -Correct Procedure Yes Yes -Procedure Performed Yes No -Type of Procedure Debridement -Clinical Debridement Selective -Post Debridement Size (cm) - Length 48.0 33.2 -Post Debridement Size (cm) - Width 42.4 25.6 -Post Debridement Size (cm) - Depth 0.1 0.1 -Total Square Cm 2035.20 849.92 -Wound/Ulcer Outcome Failed Graft Not Healed -Ulcer Cleansing Rinsed/ Rinsed/ Irrigated with Irrigated with Saline Saline -Foul Odor after Cleansing No No -Bioengineered Tissue No No -Bleeding Controlled with Pressure NA -Other 25% -Treatment Response Procedure Procedure Tolerated Well Tolerated Well #4- RLE CIRCUMFERENTIAL -Time 17:23 17:15 -Correct Patient Yes Yes -Correct Side, Site, Position Yes Yes -Correct Procedure Yes Yes -Procedure Performed Yes No -Type of Procedure Debridement -Clinical Debridement Selective -Post Debridement Size (cm) - Length 46.0 35.0 -Post Debridement Size (cm) - Width 39.0 10.0 -Post Debridement Size (cm) - Depth 0.1 0.1 -Total Square Cm 1794.00 350.00 -Wound/Ulcer Outcome Not Healed Not Healed -Ulcer Cleansing Not Cleansed Rinsed/ Irrigated with Saline -Foul Odor after Cleansing No No -Bioengineered Tissue No No -Bleeding Controlled with Pressure NA -Other 25% -Treatment Response Procedure Not Procedure Tolerated Well Tolerated Well Pain Scale: 0-10 Numeric Is Patient Pain Free? Yes Yes No debridement was completed today Assessment/Plan Active Problems Non-pressure chronic ulcer of other part of right lower leg limited to breakdown of skin (Acute) Non-pressure chronic ulcer of other part of right foot limited to breakdown of skin (Acute) Non-pressure chronic ulcer of other part of left foot limited to breakdown of skin (Acute) Type 2 diabetes mellitus with diabetic peripheral angiopathy without gangrene (Acute) Assessment: see diagnoses Plan: Exam. A total of 25 minutes was spent [id number] with the patient, and over half of that time was spent on counseling, coordination of care, and discussing her diagnoses. Pt has hx arterial fem-pop bypass RLE. Ordered arterial dopplers of lower extremities--scheduled for next week. Recently had venous duplex. Weave aquacel ag between all toes, apply silvercel to remaining ulcerations, change 2x/week. Pt discharged from home health due to bed bug problems, so she will come here for nurse visit for dressing change. Plan for greater compression with Unna boot after arterial study if able. Monitor for redness, pus, malodor,warmth, pain, inc swelling as well as N/V/F/C and go to the ED with these. Disc importance of tight blood sugar control, adequate nutrition elaine increased protein intake to promote healing. Return in 1 week to see me, 3 days for nurse visit. Call with questions.
--- NOTE | 2017-09-15 14:49 | PN.PCM_ITS ---
(1) Non-pressure chronic ulcer of other part of right lower leg limited to breakdown of skin Status: Acute Current Visit: Yes Code(s): L97.811 - Non-pressure chronic ulcer of other part of right lower leg limited to breakdown of skin (2) Non-pressure chronic ulcer of other part of left lower leg limited to breakdown of skin Status: Resolved Current Visit: No Code(s): L97.821 - Non-pressure chronic ulcer of other part of left lower leg limited to breakdown of skin (3) Non-pressure chronic ulcer of other part of right foot limited to breakdown of skin Status: Acute Current Visit: Yes Code(s): L97.511 - Non-pressure chronic ulcer of other part of right foot limited to breakdown of skin (4) Non-pressure chronic ulcer of other part of left foot limited to breakdown of skin Status: Acute Current Visit: Yes Code(s): L97.521 - Non-pressure chronic ulcer of other part of left foot limited to breakdown of skin (5) Type 2 diabetes mellitus with diabetic peripheral angiopathy without gangrene Status: Acute Current Visit: Yes 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 History of Wound: Ms. Duque is a 66-year-old with a complex past medical history who is here as a follow up from recent hospital admission for lower extremity edema/ulcers. She has been seen here in the past most recently in May and typically does not routinely follow-up. She was seen most recently in the hospital and managed as a case of bilateral lower extremity ulcers and maceration. She was also noted to have significant maceration of both feet with foul-smelling creamy discharge and toe deformities. She is a poor historian and cannot really give a clear history of onset. She was noted to have had an [place]cy wrap/Unna boot on for about 2 months. She was seen by Dr. Michael and surgical debridement was recommended however, patient declined. She had venous studies done in July which were without any significant abnormalities. She saw Dr. Alicea last week and she recommended podiatry. Pt has superficial macerated ulcerations diffusely on the legs as well as dorsal bilateral forefeet. Ulcerations appear due to drainage. Pt has poor hygeine. Of note, patient was discharged by home health due to bed bug infestation in her house. 09/15--Improving with Quincy wraps for compression, silver cell to open area on R francis, weaving aquacel ag interdigitally. Pt did come in last Thursday for nurse visit. Denies N/V/F/C. Denies pus, malodor, warmth, pain. Continued swelling of legs. Arterial testing scheduled for next week. Progress of Wound: Improving. - Physical Exam Vital Signs Temp Pulse Resp BP 97.8 F 66 20 H 145/69 H 09/15/17 14:02 09/15/17 14:02 09/15/17 14:02 09/15/17 14:02 General: Alert, Oriented x3, Cooperative, No apparent distress Skin: Ulcer/ Wound - R francis, dorsal R forefoot, dorsal L forefoot, interdigitally all toes R and L foot with no erythema, no malodor, no pus, no calor. No clinical signs of acute bacterial infection noted. See nurse?s wound /edema assessment below. Wound Measurements and Assessment WC - Nurse 1 - General Ulcer Measurement Start: 09/03/17 11:35 Freq: Status: Active Protocol: Activity Type Activity Date Activity User E-Sign Co-Sign Detail Recorded Client Recorded Date Recorded By Document 09/15/17 14:02 DL [id number] 09/15/17 14:20 DL 09/15/17 14:02 Wound Center Nurse 1 [Ulcer Assessment] #5- LLE CIRCUMFERENTIAL -Current Size (cm) - Length 33 -Current Size (cm) - Width 21 -Current Size (cm) - Depth 0.1 -Total Square Cm 693 -Photo Taken No -Exudate Amt Large (67-100%) -Exudate Type Serosanguineous -Wound Margin Indistinct, Non -Visible -Granulation Amt Medium (34-66%) -Granulation Quality [place] -Necrosis Amt Medium (34-66%) -Necrotic Tissue Type Adherent Slough -Structure Exposed N/A -Texture (Melvi-wound Skin Appearance) Excoriation -Moisture (Melvi-wound Skin Appearance Maceration ) -Color (Melvi-wound Skin Appearance) Erythema Hemosiderin Staining -Temperature (Melvi-wound Skin No Abnormality Appearance) (Pt Warm) -Ulcer Cleansing Wound Cleanser -Foul Odor after Cleansing No -Anesthetic Used 4% Lidocaine Solution #4- RLE CIRCUMFERENTIAL -Current Size (cm) - Length 35 -Current Size (cm) - Width 9 -Current Size (cm) - Depth 0.1 -Total Square Cm 315 -Photo Taken No -Exudate Amt Large (67-100%) -Exudate Type Serosanguineous -Wound Margin Indistinct, Non -Visible -Granulation Amt Medium (34-66%) -Granulation Quality [place] -Necrosis Amt Medium (34-66%) -Necrotic Tissue Type Adherent Slough -Structure Exposed N/A -Texture (Melvi-wound Skin Appearance) Excoriation -Moisture (Melvi-wound Skin Appearance Maceration ) -Color (Melvi-wound Skin Appearance) Erythema Hemosiderin Staining -Temperature (Melvi-wound Skin No Abnormality Appearance) (Pt Warm) -Ulcer Cleansing Wound Cleanser -Foul Odor after Cleansing No -Anesthetic Used 4% Lidocaine Solution [Edema Assessment] -Right Calf (cm) 41 -Right Ankle (cm) 21 -Left Calf (cm) 43 -Left Ankle (cm) 23 Debridement Note Post-Debridement Measurements/Treatment WC - Nurse 2 - General Ulcer CM Notes Start: 09/03/17 11:35 Freq: Status: Active Protocol: Activity Type Activity Date Activity User E-Sign Co-Sign Detail Recorded Client Recorded Date Recorded By Document 09/03/17 13:00 DV [id number] 09/04/17 17:26 DV Document 09/08/17 17:09 MW [id number] 09/08/17 17:17 MW 09/03/17 09/08/17 13:00 17:09 Wound Center Nurse 2 #5- LLE CIRCUMFERENTIAL -Time 17:19 17:15 -Correct Patient Yes Yes -Correct Side, Site, Position Yes Yes -Correct Procedure Yes Yes -Procedure Performed Yes No -Type of Procedure Debridement -Clinical Debridement Selective -Post Debridement Size (cm) - Length 48.0 33.2 -Post Debridement Size (cm) - Width 42.4 25.6 -Post Debridement Size (cm) - Depth 0.1 0.1 -Total Square Cm 2035.20 849.92 -Wound/Ulcer Outcome Failed Graft Not Healed -Ulcer Cleansing Rinsed/ Rinsed/ Irrigated with Irrigated with Saline Saline -Foul Odor after Cleansing No No -Bioengineered Tissue No No -Bleeding Controlled with Pressure NA -Other 25% -Treatment Response Procedure Procedure Tolerated Well Tolerated Well #4- RLE CIRCUMFERENTIAL -Time 17:23 17:15 -Correct Patient Yes Yes -Correct Side, Site, Position Yes Yes -Correct Procedure Yes Yes -Procedure Performed Yes No -Type of Procedure Debridement -Clinical Debridement Selective -Post Debridement Size (cm) - Length 46.0 35.0 -Post Debridement Size (cm) - Width 39.0 10.0 -Post Debridement Size (cm) - Depth 0.1 0.1 -Total Square Cm 1794.00 350.00 -Wound/Ulcer Outcome Not Healed Not Healed -Ulcer Cleansing Not Cleansed Rinsed/ Irrigated with Saline -Foul Odor after Cleansing No No -Bioengineered Tissue No No -Bleeding Controlled with Pressure NA -Other 25% -Treatment Response Procedure Not Procedure Tolerated Well Tolerated Well Pain Scale: 0-10 Numeric Is Patient Pain Free? Yes Yes No debridement was completed today Assessment/Plan Active Problems Non-pressure chronic ulcer of other part of right lower leg limited to breakdown of skin (Acute) Non-pressure chronic ulcer of other part of right foot limited to breakdown of skin (Acute) Non-pressure chronic ulcer of other part of left foot limited to breakdown of skin (Acute) Type 2 diabetes mellitus with diabetic peripheral angiopathy without gangrene ( Acute) Assessment: see diagnoses Plan: Exam. A total of 25 minutes was spent [id number] with the patient, and over half of that time was spent on counseling, coordination of care, and discussing her diagnoses. Pt has hx arterial fem-pop bypass RLE. Ordered arterial dopplers of lower extremities--scheduled for next week. Recently had venous duplex. Weave aquacel ag between all toes, apply silvercel to remaining ulcerations, change 2x/week. Pt discharged from home health due to bed bug problems, so she will come here for nurse visit for dressing change. Plan for greater compression with Unna boot after arterial study if able. Monitor for redness, pus, malodor,warmth, pain, inc swelling as well as N/V/F/C and go to the ED with these. Disc importance of tight blood sugar control, adequate nutrition elaine increased protein intake to promote healing. Return in 1 week to see me, 3 days for nurse visit. Call with questions.
[2017-09-18 14:18] VITALS: BP 133/46; PULSE 64; RESP 20; TEMP 36.1; BMI 30.4
[2017-09-22 13:00] VITALS: BP 123/49; PULSE 72; RESP 16; TEMP 35.5; BMI 30.4
--- NOTE | 2017-09-22 13:39 | PCM.WC.PN ---
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 History of Wound: Ms. Duque is a 66-year-old with a complex past medical history who is here as a follow up from recent hospital admission for lower extremity edema/ulcers. She has been seen here in the past most recently in May and typically does not routinely follow-up. She was seen most recently in the hospital and managed as a case of bilateral lower extremity ulcers and maceration. She was also noted to have significant maceration of both feet with foul-smelling creamy discharge and toe deformities. She is a poor historian and cannot really give a clear history of onset. She was noted to have had an Quincy wrap/Unna boot on for about 2 months. She was seen by Dr. Michael and surgical debridement was recommended however, patient declined. She had venous studies done in July which were without any significant abnormalities. She saw Dr. Alicea last week and she recommended podiatry. Pt has superficial macerated ulcerations diffusely on the legs as well as dorsal bilateral forefeet. Ulcerations appear due to drainage. Pt has poor hygeine. Of note, patient was discharged by home health due to bed bug infestation in her house. 09/15--Improving with Quincy wraps for compression, silver cell to open area on R francis, weaving aquacel ag interdigitally. Pt did come in last Thursday for nurse visit. Denies N/V/F/C. Denies pus, malodor, warmth, pain. Continued swelling of legs. Arterial testing scheduled for next week. 09/22--Still having a lot of drainage with maceration of webspaces due to drainage from her legs. Denies N/V/F/C. Denies pus, malodor, warmth, pain. Continued swelling of legs. Arterial testing reveals non-compressible vessels but triphasic waveforms. Will try Unna boots for irritated skin of legs, swelling. Will start the process of ordering edema pumps. 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 Progress of Wound: Improving. - Physical Exam Vital Signs Temp Pulse Resp BP 96 F L 72 16 123/49 H 09/22/17 13:00 09/22/17 13:00 09/22/17 13:00 09/22/17 13:00 General: Alert, Oriented x3, Cooperative, No apparent distress Skin: Ulcer/ Wound - Superficial ulcerations interdigitally and dorsal bilateral forefoot with no erythema, no pus, no malodor, no calor, no pain. No clinical signs of acute bacterial infection noted. See wound/edema assessment below. Wound Measurements and Assessment WC - Nurse 1 - General Ulcer Measurement Start: 09/03/17 11:35 Freq: Status: Active Protocol: Activity Type Activity Date Activity User E-Sign Co-Sign Detail Recorded Client Recorded Date Recorded By Document 09/22/17 13:00 [facility] [id number] 09/22/17 13:20 [facility] 09/22/17 13:00 Wound Center Nurse 1 [Ulcer Assessment] #5- LLE CIRCUMFERENTIAL -Combined with other wound No -Combined with (Name of Wound-Exactly 43 as it is documented) -Current Size (cm) - Length 49 -Current Size (cm) - Width 0.1 -Total Square Cm 4.9 -Photo Taken No -Tunneling No -Undermining/Tunneling No -Exudate Amt Large (67-100%) -Exudate Type Serosanguineous -Granulation Amt Large (67-100%) -Granulation Quality [place] -Slough/Fibrin No -Necrosis Amt None Present (0 %) -Structure Exposed None/Limited to Skin Breakdown -Texture (Melvi-wound Skin Appearance) Scarring Rash -Moisture (Melvi-wound Skin Appearance Maceration ) Weeping Dry/Scaly -Color (Melvi-wound Skin Appearance) Erythema Pal[place] -Temperature (Melvi-wound Skin No Abnormality Appearance) (Pt Warm) -Tenderness on Palpation (Melvi-wound No Skin Appearance) -Ulcer Cleansing Wound Cleanser -Foul Odor after Cleansing No -Anesthetic Used 4% Lidocaine Solution #4- RLE CIRCUMFERENTIAL -Combined with other wound No -Combined with (Name of Wound-Exactly 45.6 as it is documented) -Current Size (cm) - Length 49.5 -Current Size (cm) - Width 0.1 -Total Square Cm 4.95 -Photo Taken No -Tunneling No -Undermining/Tunneling No -Exudate Amt Large (67-100%) -Exudate Type Serosanguineous -Granulation Amt Large (67-100%) -Granulation Quality [place] -Slough/Fibrin No -Necrosis Amt None Present (0 %) -Structure Exposed None/Limited to Skin Breakdown -Texture (Melvi-wound Skin Appearance) Scarring Rash -Moisture (Melvi-wound Skin Appearance Maceration ) Weeping Dry/Scaly -Color (Melvi-wound Skin Appearance) Erythema Hemosiderin Staining [place] -Temperature (Melvi-wound Skin No Abnormality Appearance) (Pt Warm) -Tenderness on Palpation (Melvi-wound No Skin Appearance) -Foul Odor after Cleansing No -Anesthetic Used 4% Lidocaine Solution [Edema Assessment] -Lower Limb Edema Present Yes -Right Calf (cm) 45.6 -Right Ankle (cm) 24.4 -Left Calf (cm) 43 -Left Ankle (cm) 23.5 WC - Nurse 2 - General Ulcer CM Notes Start: 09/03/17 11:35 Freq: Status: Active Protocol: Activity Type Activity Date Activity User E-Sign Co-Sign Detail Recorded Client Recorded Date Recorded By Document 09/22/17 13:33 MW [id number] 09/22/17 13:37 MW 09/22/17 13:33 Wound Center Nurse 2 [Procedure/Treatment] #5- LLE CIRCUMFERENTIAL -Time 13:35 -Correct Patient Yes -Correct Side, Site, Position Yes -Correct Procedure Yes -Procedure Performed No -Post Debridement Size (cm) - Length 43.0 -Post Debridement Size (cm) - Width 49.0 -Post Debridement Size (cm) - Depth 0.1 -Total Square Cm 2107.00 -Wound/Ulcer Outcome Not Healed -Ulcer Cleansing Not Cleansed -Foul Odor after Cleansing No -Bleeding Controlled with NA -Treatment Response Procedure Tolerated Well #4- RLE CIRCUMFERENTIAL -Time 13:36 -Correct Patient Yes -Correct Side, Site, Position Yes -Correct Procedure Yes -Procedure Performed No -Post Debridement Size (cm) - Length 45.6 -Post Debridement Size (cm) - Width 49.5 -Total Square Cm 2257.20 -Wound/Ulcer Outcome Not Healed -Ulcer Cleansing Not Cleansed -Foul Odor after Cleansing No -Bleeding Controlled with NA -Treatment Response Procedure Tolerated Well [See Physician Procedure note for Specifics] Pain Scale: 0-10 Numeric [Pain] -Is Patient Pain Free? Yes Debridement Note Post-Debridement Measurements/Treatment WC - Nurse 2 - General Ulcer CM Notes Start: 09/03/17 11:35 Freq: Status: Active Protocol: Activity Type Activity Date Activity User E-Sign Co-Sign Detail Recorded Client Recorded Date Recorded By Document 09/03/17 13:00 DV [id number] 09/04/17 17:26 DV Document 09/08/17 17:09 MW [id number] 09/08/17 17:17 MW Document 09/15/17 14:47 MW [id number] 09/15/17 14:50 MW Document 09/22/17 13:33 MW [id number] 09/22/17 13:37 MW 09/03/17 09/08/17 09/15/17 13:00 17:09 14:47 Wound Center Nurse 2 #5- LLE CIRCUMFERENTIAL -Time 17:19 17:15 14:48 -Correct Patient Yes Yes Yes -Correct Side, Site, Position Yes Yes Yes -Correct Procedure Yes Yes Yes -Procedure Performed Yes No No -Type of Procedure Debridement -Clinical Debridement Selective -Post Debridement Size (cm) - Length 48.0 33.2 33.0 -Post Debridement Size (cm) - Width 42.4 25.6 21.0 -Post Debridement Size (cm) - Depth 0.1 0.1 0.1 -Total Square Cm 2035.20 849.92 693.00 -Wound/Ulcer Outcome Failed Graft Not Healed Not Healed -Ulcer Cleansing Rinsed/ Rinsed/ Rinsed/ Irrigated with Irrigated with Irrigated with Saline Saline Saline -Foul Odor after Cleansing No No No -Bioengineered Tissue No No No -Bleeding Controlled with Pressure NA NA -Other 25% -Treatment Response Procedure Procedure Procedure Tolerated Well Tolerated Well Tolerated Well #4- RLE CIRCUMFERENTIAL -Time 17:23 17:15 14:48 -Correct Patient Yes Yes Yes -Correct Side, Site, Position Yes Yes Yes -Correct Procedure Yes Yes Yes -Procedure Performed Yes No No -Type of Procedure Debridement -Clinical Debridement Selective -Post Debridement Size (cm) - Length 46.0 35.0 35.0 -Post Debridement Size (cm) - Width 39.0 10.0 9.0 -Post Debridement Size (cm) - Depth 0.1 0.1 0.1 -Total Square Cm 1794.00 350.00 315.00 -Wound/Ulcer Outcome Not Healed Not Healed Not Healed -Ulcer Cleansing Not Cleansed Rinsed/ Rinsed/ Irrigated with Irrigated with Saline Saline -Foul Odor after Cleansing No No No -Bioengineered Tissue No No No -Bleeding Controlled with Pressure NA NA -Other 25% -Treatment Response Procedure Not Procedure Procedure Tolerated Well Tolerated Well Tolerated Well Pain Scale: 0-10 Numeric Is Patient Pain Free? Yes Yes Yes 09/22/17 13:33 Wound Center Nurse 2 #5- LLE CIRCUMFERENTIAL -Time 13:35 -Correct Patient Yes -Correct Side, Site, Position Yes -Correct Procedure Yes -Procedure Performed No -Type of Procedure -Clinical Debridement -Post Debridement Size (cm) - Length 43.0 -Post Debridement Size (cm) - Width 49.0 -Post Debridement Size (cm) - Depth 0.1 -Total Square Cm 2107.00 -Wound/Ulcer Outcome Not Healed -Ulcer Cleansing Not Cleansed -Foul Odor after Cleansing No -Bioengineered Tissue -Bleeding Controlled with NA -Other -Treatment Response Procedure Tolerated Well #4- RLE CIRCUMFERENTIAL -Time 13:36 -Correct Patient Yes -Correct Side, Site, Position Yes -Correct Procedure Yes -Procedure Performed No -Type of Procedure -Clinical Debridement -Post Debridement Size (cm) - Length 45.6 -Post Debridement Size (cm) - Width 49.5 -Post Debridement Size (cm) - Depth -Total Square Cm 2257.20 -Wound/Ulcer Outcome Not Healed -Ulcer Cleansing Not Cleansed -Foul Odor after Cleansing No -Bioengineered Tissue -Bleeding Controlled with NA -Other -Treatment Response Procedure Tolerated Well Pain Scale: 0-10 Numeric Is Patient Pain Free? Yes No debridement was completed today Assessment/Plan Active Problems Non-pressure chronic ulcer of other part of right lower leg limited to breakdown of skin (Acute) Non-pressure chronic ulcer of other part of right foot limited to breakdown of skin (Acute) Non-pressure chronic ulcer of other part of left foot limited to breakdown of skin (Acute) Type 2 diabetes mellitus with diabetic peripheral angiopathy without gangrene (Acute) Lymphedema in adult patient (Acute) Assessment: see diagnoses Plan: Exam. A total of 15 minutes was spent [id number] with the patient, and over half of that time was spent on counseling, coordination of care, and discussing her diagnoses. Pt has hx arterial fem-pop bypass RLE. Ordered arterial dopplers of lower extremities--reveal non-compressible vessels but triphasic waveforms bilaterally. Recently had venous duplex--has absent vein due to bypass but remaining veins competant. Weave aquacel ag between all toes, apply silvercel to remaining ulcerations, change 2x/week. Pt discharged from home health due to bed bug problems, so she will come here for nurse visit for dressing change. Start Unna boots. Monitor for redness, pus, malodor,warmth, pain, inc swelling as well as N/V/F/C and go to the ED with these. Disc importance of tight blood sugar control, adequate nutrition elaine increased protein intake to promote healing. Return in 1 week to see me, 3 days for nurse visit. Call with questions. Will start the process of ordering edema pumps as well.
--- NOTE | 2017-09-22 13:47 | PN.PCM_ITS ---
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 History of Wound: Ms. Duque is a 66-year-old with a complex past medical history who is here as a follow up from recent hospital admission for lower extremity edema/ulcers. She has been seen here in the past most recently in May and typically does not routinely follow-up. She was seen most recently in the hospital and managed as a case of bilateral lower extremity ulcers and maceration. She was also noted to have significant maceration of both feet with foul-smelling creamy discharge and toe deformities. She is a poor historian and cannot really give a clear history of onset. She was noted to have had an [place] wrap/Unna boot on for about 2 months. She was seen by Dr. Michael and surgical debridement was recommended however, patient declined. She had venous studies done in July which were without any significant abnormalities. She saw Dr. Alicea last week and she recommended podiatry. Pt has superficial macerated ulcerations diffusely on the legs as well as dorsal bilateral forefeet. Ulcerations appear due to drainage. Pt has poor hygeine. Of note, patient was discharged by home health due to bed bug infestation in her house. 09/15--Improving with [place] wraps for compression, silver cell to open area on R francis, weaving aquacel ag interdigitally. Pt did come in last Thursday for nurse visit. Denies N/V/F/C. Denies pus, malodor, warmth, pain. Continued swelling of legs. Arterial testing scheduled for next week. 09/22-- Still having a lot of drainage with maceration of webspaces due to drainage from her legs. Denies N/V/F/C. Denies pus, malodor, warmth, pain. Continued swelling of legs. Arterial testing reveals non-compressible vessels but triphasic waveforms. Will try Unna boots for irritated skin of legs, swelling. Will start the process of ordering edema pumps. 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 Progress of Wound: Improving. - Physical Exam Vital Signs Temp Pulse Resp BP 96 F L 72 16 123/49 H 09/22/17 13:00 09/22/17 13:00 09/22/17 13:00 09/22/17 13:00 General: Alert, Oriented x3, Cooperative, No apparent distress Skin: Ulcer/ Wound - Superficial ulcerations interdigitally and dorsal bilateral forefoot with no erythema, no pus, no malodor, no calor, no pain. No clinical signs of acute bacterial infection noted. See wound/edema assessment below. Wound Measurements and Assessment WC - Nurse 1 - General Ulcer Measurement Start: 09/03/17 11:35 Freq: Status: Active Protocol: Activity Type Activity Date Activity User E-Sign Co-Sign Detail Recorded Client Recorded Date Recorded By Document 09/22/17 13:00 [facility] [id number] 09/22/17 13:20 [facility] 09/22/17 13:00 Wound Center Nurse 1 [Ulcer Assessment] #5- LLE CIRCUMFERENTIAL -Combined with other wound No -Combined with (Name of Wound-Exactly 43 as it is documented) -Current Size (cm) - Length 49 -Current Size (cm) - Width 0.1 -Total Square Cm 4.9 -Photo Taken No -Tunneling No -Undermining/Tunneling No -Exudate Amt Large (67-100%) -Exudate Type Serosanguineous -Granulation Amt Large (67-100%) -Granulation Quality [place] -Slough/Fibrin No -Necrosis Amt None Present (0 %) -Structure Exposed None/Limited to Skin Breakdown -Texture (Melvi-wound Skin Appearance) Scarring Rash -Moisture (Melvi-wound Skin Appearance Maceration ) Weeping Dry/Scaly -Color (Melvi-wound Skin Appearance) Erythema Palor -Temperature (Melvi-wound Skin No Abnormality Appearance) (Pt Warm) -Tenderness on Palpation (Melvi-wound No Skin Appearance) -Ulcer Cleansing Wound Cleanser -Foul Odor after Cleansing No -Anesthetic Used 4% Lidocaine Solution #4- RLE CIRCUMFERENTIAL -Combined with other wound No -Combined with (Name of Wound-Exactly 45.6 as it is documented) -Current Size (cm) - Length 49.5 -Current Size (cm) - Width 0.1 -Total Square Cm 4.95 -Photo Taken No -Tunneling No -Undermining/Tunneling No -Exudate Amt Large (67-100%) -Exudate Type Serosanguineous -Granulation Amt Large (67-100%) -Granulation Quality [place] -Slough/Fibrin No -Necrosis Amt None Present (0 %) -Structure Exposed None/Limited to Skin Breakdown -Texture (Melvi-wound Skin Appearance) Scarring Rash -Moisture (Melvi-wound Skin Appearance Maceration ) Weeping Dry/Scaly -Color (Melvi-wound Skin Appearance) Erythema Hemosiderin Staining Palor -Temperature (Melvi-wound Skin No Abnormality Appearance) (Pt Warm) -Tenderness on Palpation (Melvi-wound No Skin Appearance) -Foul Odor after Cleansing No -Anesthetic Used 4% Lidocaine Solution [Edema Assessment] -Lower Limb Edema Present Yes -Right Calf (cm) 45.6 -Right Ankle (cm) 24.4 -Left Calf (cm) 43 -Left Ankle (cm) 23.5 WC - Nurse 2 - General Ulcer CM Notes Start: 09/03/17 11:35 Freq: Status: Active Protocol: Activity Type Activity Date Activity User E-Sign Co-Sign Detail Recorded Client Recorded Date Recorded By Document 09/22/17 13:33 MW [id number] 09/22/17 13:37 MW 09/22/17 13:33 Wound Center Nurse 2 [Procedure/Treatment] #5- LLE CIRCUMFERENTIAL -Time 13:35 -Correct Patient Yes -Correct Side, Site, Position Yes -Correct Procedure Yes -Procedure Performed No -Post Debridement Size (cm) - Length 43.0 -Post Debridement Size (cm) - Width 49.0 -Post Debridement Size (cm) - Depth 0.1 -Total Square Cm 2107.00 -Wound/Ulcer Outcome Not Healed -Ulcer Cleansing Not Cleansed -Foul Odor after Cleansing No -Bleeding Controlled with NA -Treatment Response Procedure Tolerated Well #4- RLE CIRCUMFERENTIAL -Time 13:36 -Correct Patient Yes -Correct Side, Site, Position Yes -Correct Procedure Yes -Procedure Performed No -Post Debridement Size (cm) - Length 45.6 -Post Debridement Size (cm) - Width 49.5 -Total Square Cm 2257.20 -Wound/Ulcer Outcome Not Healed -Ulcer Cleansing Not Cleansed -Foul Odor after Cleansing No -Bleeding Controlled with NA -Treatment Response Procedure Tolerated Well [See Physician Procedure note for Specifics] Pain Scale: 0-10 Numeric [Pain] -Is Patient Pain Free? Yes Debridement Note Post-Debridement Measurements/Treatment WC - Nurse 2 - General Ulcer CM Notes Start: 09/03/17 11:35 Freq: Status: Active Protocol: Activity Type Activity Date Activity User E-Sign Co-Sign Detail Recorded Client Recorded Date Recorded By Document 09/03/17 13:00 DV [id number] 09/04/17 17:26 DV Document 09/08/17 17:09 MW [id number] 09/08/17 17:17 MW Document 09/15/17 14:47 MW [id number] 09/15/17 14:50 MW Document 09/22/17 13:33 MW [id number] 09/22/17 13:37 MW 09/03/17 09/08/17 09/15/17 13:00 17:09 14:47 Wound Center Nurse 2 #5- LLE CIRCUMFERENTIAL -Time 17:19 17:15 14:48 -Correct Patient Yes Yes Yes -Correct Side, Site, Position Yes Yes Yes -Correct Procedure Yes Yes Yes -Procedure Performed Yes No No -Type of Procedure Debridement -Clinical Debridement Selective -Post Debridement Size (cm) - Length 48.0 33.2 33.0 -Post Debridement Size (cm) - Width 42.4 25.6 21.0 -Post Debridement Size (cm) - Depth 0.1 0.1 0.1 -Total Square Cm 2035.20 849.92 693.00 -Wound/Ulcer Outcome Failed Graft Not Healed Not Healed -Ulcer Cleansing Rinsed/ Rinsed/ Rinsed/ Irrigated with Irrigated with Irrigated with Saline Saline Saline -Foul Odor after Cleansing No No No -Bioengineered Tissue No No No -Bleeding Controlled with Pressure NA NA -Other 25% -Treatment Response Procedure Procedure Procedure Tolerated Well Tolerated Well Tolerated Well #4- RLE CIRCUMFERENTIAL -Time 17:23 17:15 14:48 -Correct Patient Yes Yes Yes -Correct Side, Site, Position Yes Yes Yes -Correct Procedure Yes Yes Yes -Procedure Performed Yes No No -Type of Procedure Debridement -Clinical Debridement Selective -Post Debridement Size (cm) - Length 46.0 35.0 35.0 -Post Debridement Size (cm) - Width 39.0 10.0 9.0 -Post Debridement Size (cm) - Depth 0.1 0.1 0.1 -Total Square Cm 1794.00 350.00 315.00 -Wound/Ulcer Outcome Not Healed Not Healed Not Healed -Ulcer Cleansing Not Cleansed Rinsed/ Rinsed/ Irrigated with Irrigated with Saline Saline -Foul Odor after Cleansing No No No -Bioengineered Tissue No No No -Bleeding Controlled with Pressure NA NA -Other 25% -Treatment Response Procedure Not Procedure Procedure Tolerated Well Tolerated Well Tolerated Well Pain Scale: 0-10 Numeric Is Patient Pain Free? Yes Yes Yes 09/22/17 13:33 Wound Center Nurse 2 #5- LLE CIRCUMFERENTIAL -Time 13:35 -Correct Patient Yes -Correct Side, Site, Position Yes -Correct Procedure Yes -Procedure Performed No -Type of Procedure -Clinical Debridement -Post Debridement Size (cm) - Length 43.0 -Post Debridement Size (cm) - Width 49.0 -Post Debridement Size (cm) - Depth 0.1 -Total Square Cm 2107.00 -Wound/Ulcer Outcome Not Healed -Ulcer Cleansing Not Cleansed -Foul Odor after Cleansing No -Bioengineered Tissue -Bleeding Controlled with NA -Other -Treatment Response Procedure Tolerated Well #4- RLE CIRCUMFERENTIAL -Time 13:36 -Correct Patient Yes -Correct Side, Site, Position Yes -Correct Procedure Yes -Procedure Performed No -Type of Procedure -Clinical Debridement -Post Debridement Size (cm) - Length 45.6 -Post Debridement Size (cm) - Width 49.5 -Post Debridement Size (cm) - Depth -Total Square Cm 2257.20 -Wound/Ulcer Outcome Not Healed -Ulcer Cleansing Not Cleansed -Foul Odor after Cleansing No -Bioengineered Tissue -Bleeding Controlled with NA -Other -Treatment Response Procedure Tolerated Well Pain Scale: 0-10 Numeric Is Patient Pain Free? Yes No debridement was completed today Assessment/Plan Active Problems Non-pressure chronic ulcer of other part of right lower leg limited to breakdown of skin (Acute) Non-pressure chronic ulcer of other part of right foot limited to breakdown of skin (Acute) Non-pressure chronic ulcer of other part of left foot limited to breakdown of skin (Acute) Type 2 diabetes mellitus with diabetic peripheral angiopathy without gangrene ( Acute) Lymphedema in adult patient (Acute) Assessment: see diagnoses Plan: Exam. A total of 15 minutes was spent [id number] with the patient, and over half of that time was spent on counseling, coordination of care, and discussing her diagnoses. Pt has hx arterial fem-pop bypass RLE. Ordered arterial dopplers of lower extremities--reveal non-compressible vessels but triphasic waveforms bilaterally. Recently had venous duplex--has absent vein due to bypass but remaining veins competant. Weave aquacel ag between all toes , apply silvercel to remaining ulcerations, change 2x/week. Pt discharged from home health due to bed bug problems, so she will come here for nurse visit for dressing change. Start Unna boots. Monitor for redness, pus, malodor,warmth, pain, inc swelling as well as N/V/F/C and go to the ED with these. Disc importance of tight blood sugar control, adequate nutrition elaine increased protein intake to promote healing. Return in 1 week to see me, 3 days for nurse visit. Call with questions. Will start the process of ordering edema pumps as well.
--- NOTE | 2017-09-23 22:52 | LEAS_ITS ---
Arterial Study - Arterial Study Arterial Study: This is a 66-year-old female with a history of diabetes mellitus, lymphedema, hypertension, hyperlipidemia, coronary artery disease, and prior right lower extremity arterial bypass. The patient presents with chronic nonhealing wounds to the lower extremities. Suspecting the presence of, and with a history of, peripheral arterial occlusive disease, the patient was brought to the noninvasive vascular laboratory at this time for the purpose of bilateral noninvasive lower extremity arterial assessment. Doppler signal assessment was used to evaluate the pulses at ankle level bilaterally. The posterior tibial and dorsalis pedis pulses were triphasic bilaterally. An attempt was made to obtain segmental pressures bilaterally. Toe pressures could not be obtained on either side due to the location of the patient's wounds. Ankle pressures, as determined by posterior tibial and dorsalis pedis pulses, could not be determined on either side due to the noncompressibility of the vasculature. Pulse-volume recordings were obtained bilaterally and segmentally. Waveform amplitudes appeared to be satisfactory at all levels bilaterally, including low thigh, calf, ankle, and digital levels. Resting ankle-brachial indices could not be calculated on either side due to the noncompressibility of the vasculature at ankle level bilaterally. Impression: Based upon the findings of this resting noninvasive lower extremity arterial study, arterial perfusion to ankle level appears to be relatively normal bilaterally. Triphasic waveforms are noted at ankle level bilaterally. Pulse-volume recordings appear to be segmentally normal bilaterally. However, due to the noncompressibility of the arterial vasculature at ankle level bilaterally, resting ankle-brachial indices could not be calculated. The noncompressibility of the vasculature suggests arterial calcification. However , despite the limited nature of this study, there appears to be relatively normal arterial perfusion to ankle level bilaterally. Clinical correlation is advised, however.
[2017-09-25 18:18] VITALS: BP 147/71; PULSE 66; RESP 18; TEMP 36; BMI 30.4
== END 2017-09-26 23:59 ==
LOC: WC 15:00
PROVIDERS: Family Provider Internal Medicine; PCP Internal Medicine; Visit Provider Podiatrist Foot & Ankle Surgery
DX: E11.621 Type 2 diabetes mellitus with foot ulcer (principal); M20.62 Acquired deformities of toe(s), unspecified, left foot; M20.61 Acquired deformities of toe(s), unspecified, right foot; I83.215 Varicose veins of right lower extremity with both ulcer other part of foot and inflammation; I83.225 Varicose veins of left lower extremity with both ulcer other part of foot and inflammation; L97.512 Non-pressure chronic ulcer of other part of right foot with fat layer exposed; L97.522 Non-pressure chronic ulcer of other part of left foot with fat layer exposed; I89.0 Lymphedema, not elsewhere classified; E11.51 Type 2 diabetes mellitus with diabetic peripheral angiopathy without gangrene; E78.5 Hyperlipidemia, unspecified; Z91.19 Patient's noncompliance with other medical treatment and regimen; K21.9 Gastro-esophageal reflux disease without esophagitis; E11.22 Type 2 diabetes mellitus with diabetic chronic kidney disease; I12.9 Hypertensive chronic kidney disease with stage 1 through stage 4 chronic kidney disease, or unspecified chronic kidney disease; N18.3 Chronic kidney disease, stage 3 (moderate); Z79.82 Long term (current) use of aspirin; Z79.899 Other long term (current) drug therapy; Z79.4 Long term (current) use of insulin; Z87.891 Personal history of nicotine dependence; E11.622 Type 2 diabetes mellitus with other skin ulcer; L97.811 Non-pressure chronic ulcer of other part of right lower leg limited to breakdown of skin; L97.821 Non-pressure chronic ulcer of other part of left lower leg limited to breakdown of skin
CPT/HCPCS: 11042; 11045; 29580; 87070; 87075; 87076; 87077; 87186; 87205; 93923; 99211; 99212; 99213; 99214; G0463

== ENCOUNTER 2017-09-29 14:35 | Outpatient (RCR) | payer MEDICAID, SELFPAY ==
[2017-09-27 01:11] VITALS: PULSE 66; RESP 18; TEMP 36
[2017-09-29 14:39] VITALS: BP 134/60; PULSE 69; RESP 18; TEMP 35.8
--- NOTE | 2017-09-29 15:22 | PN.PCM_ITS ---
(1) Non-pressure chronic ulcer of other part of right foot limited to breakdown of skin Status: Acute Current Visit: Yes Code(s): L97.511 - Non-pressure chronic ulcer of other part of right foot limited to breakdown of skin (2) Non-pressure chronic ulcer of other part of left foot limited to breakdown of skin Status: Acute Current Visit: Yes Code(s): L97.521 - Non-pressure chronic ulcer of other part of left foot limited to breakdown of skin (3) Lymphedema of both lower extremities Status: Chronic Current Visit: Yes Code(s): I89.0 - Lymphedema, not elsewhere classified (4) Type 2 diabetes mellitus with other circulatory complications Status: Acute Current Visit: Yes Code(s): E11.59 - Type 2 diabetes mellitus with other circulatory complications Type of Wound Date of Service: 09/29/17 Chief Complaint: Lower extremity ulcer and Maceration s/p recent hospital admission. History of Wound: Ms. Duque is a 66-year-old with a complex past medical history who is here as a follow up from recent hospital admission for lower extremity edema/ulcers. She has been seen here in the past most recently in May and typically does not routinely follow-up. She was seen most recently in the hospital and managed as a case of bilateral lower extremity ulcers and maceration. She was also noted to have significant maceration of both feet with foul-smelling creamy discharge and toe deformities. She is a poor historian and cannot really give a clear history of onset. She was noted to have had an Quincy wrap/Unna boot on for about 2 months. She was seen by Dr. Michael and surgical debridement was recommended however, patient declined. She had venous studies done in July which were without any significant abnormalities. She saw Dr. Alicea last week and she recommended podiatry. Pt has superficial macerated ulcerations diffusely on the legs as well as dorsal bilateral forefeet. Ulcerations appear due to drainage. Pt has poor hygeine. Of note, patient was discharged by home health due to bed bug infestation in her house. 09/15--Improving with Quincy wraps for compression, silver cell to open area on R francis, weaving aquacel ag interdigitally. Pt did come in last Thursday for nurse visit. Denies N/V/F/C. Denies pus, malodor, warmth, pain. Continued swelling of legs. Arterial testing scheduled for next week. 09/22-- Still having a lot of drainage with maceration of webspaces due to drainage from her legs. Denies N/V/F/C. Denies pus, malodor, warmth, pain. Continued swelling of legs. Arterial testing reveals non-compressible vessels but triphasic waveforms. Will try Unna boots for irritated skin of legs, swelling. Will start the process of ordering edema pumps. 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 09/29--Still having a lot of drainage with maceration of webspaces due to drainage. Drainage is green. Denies N/V/F/C. Denies pus, malodor, warmth, pain. Continued swelling of legs. Arterial testing reveals non-compressible vessels but triphasic waveforms. Irritated skin of legs worse from Unna boot, switch back to 3M. Needs edema pumps. 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 Progress of Wound: Stable. Has greenish drainage from feet. - Physical Exam Vital Signs Temp Pulse Resp BP 96.4 F L 69 18 134/60 H 09/29/17 14:39 09/29/17 14:39 09/29/17 14:39 09/29/17 14:39 General: Alert, Oriented x3, Cooperative, No apparent distress Skin: Ulcer/ Wound - Multiple diffuse on legs, dorsal feet and webspaces with green drainage but with no erythema, no pus, no malodor, no warmth, no pain. No clinical signs of acute bacterial infection noted. See wound/edema assessment below., Rash Present - itching rash on both legs Wound Measurements and Assessment WC - Nurse 1 - General Ulcer Measurement Start: 09/29/17 14:39 Freq: Status: Active Protocol: Activity Type Activity Date Activity User E-Sign Co-Sign Detail Recorded Client Recorded Date Recorded By Document 09/29/17 14:39 DL [id number] 09/29/17 14:53 DL 09/29/17 14:39 Wound Center Nurse 1 [Ulcer Assessment] #5- LLE CIRCUMFERENTIAL -Combined with other wound No -Current Size (cm) - Length 44.9 -Current Size (cm) - Width 48 -Current Size (cm) - Depth 0.1 -Total Square Cm 2155.2 -Epithelialization None Present -Tunneling No -Undermining/Tunneling No -Circular Undermining No -Exudate Amt Large (67-100%) -Exudate Type Yellow/Green -Granulation Amt Large (67-100%) -Granulation Quality Red -Slough/Fibrin No -Necrosis Amt None Present (0 %) -Structure Exposed None/Limited to Skin Breakdown -Texture (Melvi-wound Skin Appearance) Excoriation Scarring Rash -Moisture (Melvi-wound Skin Appearance Maceration ) Weeping Dry/Scaly -Color (Melvi-wound Skin Appearance) Assessed Erythema -Temperature (Melvi-wound Skin No Abnormality Appearance) (Pt Warm) -Tenderness on Palpation (Melvi-wound No Skin Appearance) -Ulcer Cleansing Wound Cleanser -Foul Odor after Cleansing No #4- RLE CIRCUMFERENTIAL -Combined with other wound No -Current Size (cm) - Length 44.5 -Current Size (cm) - Width 46 -Current Size (cm) - Depth 0.1 -Total Square Cm 2047.0 -Photo Taken No -Epithelialization None Present -Tunneling No -Undermining/Tunneling No -Circular Undermining No -Exudate Amt Large (67-100%) -Exudate Type Yellow/Green -Wound Margin Distinct, Outline Attached -Granulation Amt Large (67-100%) -Granulation Quality Red -Slough/Fibrin No -Necrosis Amt None Present (0 %) -Structure Exposed None/Limited to Skin Breakdown -Texture (Melvi-wound Skin Appearance) Excoriation Scarring Rash -Moisture (Melvi-wound Skin Appearance Maceration ) Weeping Dry/Scaly -Color (Melvi-wound Skin Appearance) Erythema -Temperature (Melvi-wound Skin No Abnormality Appearance) (Pt Warm) -Tenderness on Palpation (Melvi-wound No Skin Appearance) -Ulcer Cleansing Wound Cleanser -Foul Odor after Cleansing No -Anesthetic Used 4% Lidocaine Solution [Edema Assessment] -Lower Limb Edema Present Yes -Right Calf (cm) 44.5 -Right Ankle (cm) 24.5 -Left Calf (cm) 44.9 -Left Ankle (cm) 25 WC - Nurse 2 - General Ulcer CM Notes Start: 09/29/17 14:39 Freq: Status: Active Protocol: Activity Type Activity Date Activity User E-Sign Co-Sign Detail Recorded Client Recorded Date Recorded By Document 09/29/17 15:03 MW [id number] 09/29/17 15:15 MW 09/29/17 15:03 Wound Center Nurse 2 [Procedure/Treatment] #5- LLE CIRCUMFERENTIAL -Time 15:06 -Correct Patient Yes -Correct Side, Site, Position Yes -Correct Procedure Yes -Procedure Performed No -Post Debridement Size (cm) - Length 44.9 -Post Debridement Size (cm) - Width 48.0 -Post Debridement Size (cm) - Depth 0.1 -Total Square Cm 2155.20 -Wound/Ulcer Outcome Not Healed -Ulcer Cleansing Not Cleansed -Foul Odor after Cleansing No -Bleeding Controlled with NA -Treatment Response Procedure Tolerated Well #4- RLE CIRCUMFERENTIAL -Time 15:07 -Correct Patient Yes -Correct Side, Site, Position Yes -Correct Procedure Yes -Procedure Performed No -Post Debridement Size (cm) - Length 44.5 -Post Debridement Size (cm) - Width 46.0 -Post Debridement Size (cm) - Depth 0.1 -Total Square Cm 2047.00 -Wound/Ulcer Outcome Not Healed -Ulcer Cleansing Not Cleansed -Foul Odor after Cleansing No -Bioengineered Tissue No -Bleeding Controlled with NA -Treatment Response Procedure Tolerated Well [See Physician Procedure note for Specifics] Pain Scale: 0-10 Numeric [Pain] -Is Patient Pain Free? No Debridement Note Post-Debridement Measurements/Treatment WC - Nurse 2 - General Ulcer CM Notes Start: 09/29/17 14:39 Freq: Status: Active Protocol: Activity Type Activity Date Activity User E-Sign Co-Sign Detail Recorded Client Recorded Date Recorded By Document 09/29/17 15:03 MW [id number] 09/29/17 15:15 MW 09/29/17 15:03 Wound Center Nurse 2 #5- LLE CIRCUMFERENTIAL -Time 15:06 -Correct Patient Yes -Correct Side, Site, Position Yes -Correct Procedure Yes -Procedure Performed No -Post Debridement Size (cm) - Length 44.9 -Post Debridement Size (cm) - Width 48.0 -Post Debridement Size (cm) - Depth 0.1 -Total Square Cm 2155.20 -Wound/Ulcer Outcome Not Healed -Ulcer Cleansing Not Cleansed -Foul Odor after Cleansing No -Bleeding Controlled with NA -Treatment Response Procedure Tolerated Well #4- RLE CIRCUMFERENTIAL -Time 15:07 -Correct Patient Yes -Correct Side, Site, Position Yes -Correct Procedure Yes -Procedure Performed No -Post Debridement Size (cm) - Length 44.5 -Post Debridement Size (cm) - Width 46.0 -Post Debridement Size (cm) - Depth 0.1 -Total Square Cm 2047.00 -Wound/Ulcer Outcome Not Healed -Ulcer Cleansing Not Cleansed -Foul Odor after Cleansing No -Bioengineered Tissue No -Bleeding Controlled with NA -Treatment Response Procedure Tolerated Well Pain Scale: 0-10 Numeric Is Patient Pain Free? No No debridement was completed today Assessment/Plan Active Problems Non-pressure chronic ulcer of other part of right foot limited to breakdown of skin (Acute) Non-pressure chronic ulcer of other part of left foot limited to breakdown of skin (Acute) Type 2 diabetes mellitus with other circulatory complications (Acute) Lymphedema of both lower extremities (Chronic) Assessment: see diagnoses Plan: Exam. A total of 15 minutes was spent [id number] with the patient, and over half of that time was spent on counseling, coordination of care, and discussing her diagnoses. Pt has hx arterial fem-pop bypass RLE. Ordered arterial dopplers of lower extremities--reveal non-compressible vessels but triphasic waveforms bilaterally. Recently had venous duplex--has absent vein due to bypass but remaining veins competant. Start gentamicin 0.1% cream to dorsal forefoot bilateral for green drainage with dressing chagnes. Rx 15 gm tube, 0 refills. Switch to gentian jose starting next week. Has itching rash both legs, Rx triamcinalone 0.1% cream, 454 gm jar, apply topically to rash on legs with dressing changes. Weave aquacel ag between all toes, apply silvercel to remaining ulcerations, change 3x/week. Pt needs home health for more frequent dressing changes. Monitor for redness, pus, malodor,warmth, pain, inc swelling as well as N/V/F/C and go to the ED with these. Disc importance of tight blood sugar control, adequate nutrition elaine increased protein intake to promote healing. Return in 1 week to see me. Call with questions. Will start the process of ordering edema pumps as well.
[2017-10-02 11:24] VITALS: BP 133/67; PULSE 64; RESP 20; TEMP 36.2
== END 2017-10-26 23:59 ==
LOC: WC 14:35
PROVIDERS: Family Provider Internal Medicine; PCP Internal Medicine; Visit Provider Podiatrist Foot & Ankle Surgery
DX: E11.621 Type 2 diabetes mellitus with foot ulcer (principal); I89.0 Lymphedema, not elsewhere classified; E11.59 Type 2 diabetes mellitus with other circulatory complications; L97.511 Non-pressure chronic ulcer of other part of right foot limited to breakdown of skin; L97.521 Non-pressure chronic ulcer of other part of left foot limited to breakdown of skin; R60.0 Localized edema
CPT/HCPCS: 29581; 99212; 99213; G0463

== ENCOUNTER 2017-10-08 10:54 | Inpatient (IN) | payer MEDICAID, SELFPAY ==
[2017-10-08] VITALS (20 sets, daily range): BP systolic 139–168; BP diastolic 55–80; PULSE 74–102; RESP 12–30; TEMP 35.6–36.7; O2SAT 83–96; BMI 37.0; BMI 34.5; BMI 35.4
--- NOTE | 2017-10-08 11:03 | RAD_ITS ---
STUDY: X-RAY CHEST REASON FOR EXAM: Female, 66 years old. Shortness of breath and dyspnea. TECHNIQUE: Single AP portable view of the chest. COMPARISON: 03/30/2017 FINDINGS: Moderate lung volumes. There is diffuse hazy density and prominence of the bronchovascular markings in both lungs, most consistent with congestive failure and pulmonary edema.. Findings are worse than prior study. Probable atelectasis in the lung bases or less likely inflammatory infiltrates. Right is worse than left. Possible small pleural effusions. Sternal cerclage wires and vascular clips are present from a prior sternotomy and coronary artery bypass graft procedure (CABG). Normal mediastinum and kel. Normal visualized pulmonary arteries. Normal visualized aortic arch and descending thoracic aorta. Normal visualized thoracic spine. Normal visualized ribs, clavicles, and shoulders. There is no demonstrated abnormality of the visualized soft tissue structures of the upper abdomen. RAD/Chest 1 View (Portable) IMPRESSION: Congestion and pulmonary edema, and atelectasis or infiltrates in the lung bases. Electronically Signed: Abelino Peoples MD at 11:49 EDT , Service support ,
--- NOTE | 2017-10-08 11:03 | EKG12_ITS ---
Test Reason : SOB Blood Pressure : / mmHG Vent. Rate : 074 BPM Atrial Rate : 074 BPM P-R Int : 140 ms QRS Dur : 070 ms QT Int : 344 ms P-R-T Axes : 037 028 132 degrees QTc Int : 381 ms Sinus rhythm with Premature supraventricular complexes Nonspecific ST and T wave abnormality Abnormal ECG Confirmed by ANUSHKA CHANCE, PASTOR ([id number]), deputy editor in chief PROMISE DICKINSON ([id number]) on 10/09/2017 11:53:51 AM Referred By: PAU Confirmed By:PASTOR REVELES MD
--- NOTE | 2017-10-08 11:05 | ED.DCSUM_ITS ---
- ER Visit Summary Date of Service: 10/08/17 Chief Complaint: Shortness of breath History of Present Illness: The patient is a 66 F who presents with shortness of breath. She states it started last night and got worse this morning. She feels short of breath when she exerts herself. When she rests and use her oxygen at home it feels better. She normally wears 2 L of home oxygen. She has had a cough is been productive of sputum. She admits to rhinorrhea. She states that she feels aching all over as well as under her chest. She denies any fevers at home. She says that she has no history of lung problems. Her chart says that she has had CHF in the past. Physical Examination: Vital signs reviewed. HEENT exam unremarkable. Heart is regular rate and rhythm without murmurs. Lungs have rales in the bases bilaterally. She is using some accessory muscles. Abdomen is soft and nontender. Extremities reveal 1+ symmetric edema which is chronic. Skin exam normal. Neurologic exam normal. Test Results: EKG is normal sinus rhythm with rate of 77. Nonspecific ST and T- wave changes noted. Hemoglobin 11.3, sodium 147, creatinine 1.33. Troponin is normal. BNP 349 chest x-ray reveals evidence of CHF with bilateral lower lobe atelectasis Emergency Department Course and Treatment: Patient was placed on a 40% Ventimask. She was given albuterol as well as Lasix and nitroglycerin paste. Her symptoms are likely due to CHF exacerbation. Patient was discussed with the hospitalist for admission to PCU Treatment Plan: [] Disposition: Admit Impression: Acute on chronic respiratory failure, CHF exacerbation This note was generated with [employer] dictation software. It may contain incorrect words, spelling, and punctuation that were not noted in review of the chart prior to signing ED Disposition - Plan for ED Patient: Chief Complaint: Shortness of Breath Referrals: Kim Field MD [Primary Care Provider] -
[2017-10-08] MEDS: Albuterol 2.5 MG/3 ML VIAL.NEB. INHALATION ×3 (11:21)
[2017-10-08 11:49] LABS: Absolute Lymphocyte Count 0.44 X10^3/ul (0.83-4.51); Absolute Neutrophil Count 9.1 X10^3/uL (2.0-7.7); Basophil# 0.02 X10^3/uL; Basophil% 0.2 % (0-1); Eosinophil# 0.15 X10^3/uL; Eosinophils% 1.5 % (0-5); Hematocrit 37.2 % (37-47); Hemoglobin 11.3 g/dl (12.0-15.0); Lymphocyte # 0.44 X10^3/ul (4.0); Lymphocyte % 4.4 % (19-41); Mean Corp Hgb Conc 30.4 g/gl (32-36); Mean Corpuscular Hgb 28.8 pg (27.0-32.0); Mean Corpuscular Volume 94.9 fL (81-99); Mean Platelet Vol. 10.4 fl (6.2-12.0); Monocyte# 0.34 X10^3/uL; Monocyte% 3.4 % (0-10); Neutrophil % 90.2 % (47-70); Platelet Count 138 K/mm3 (150-450); RBC Distribution Width CV 16.3 % (11.6-14.6); RBC Distribution Width SD 55.7 fl (35.1-43.9); Red Blood Count 3.92 M/mm3 (4.2-5.4); White Blood Count 10.1 K/mm3 (4.4-11.0)
[2017-10-08 11:50] LABS: Differential Indicated SCAN CRITERIA MET; POSITIVE COUNT NO; POSITIVE DIFFERENTIAL YES; POSITIVE MORPHOLOGY NO
[2017-10-08 12:02] LABS: Anion Gap 9 (5-15); BUN 20 mg/dL (7-18); Calcium,Total 8.2 mg/dL (8.5-10.1); Chloride 113 mmol/L (98-107); Creatinine, Serum 1.33 mg/dL (0.55-1.02); EST Glomerular Filtration Rate 42 mL/min (>60); Est Glom Filt Rate - Afr Amer 51 mL/min (>60); Estimated Creatinine Clearance 41.97 ml/min; Glucose 149 mg/dL (74-106); Potassium 4.1 mmol/L (3.5-5.1); Sodium Level 147 mmol/L (136-145)
[2017-10-08 12:09] LABS: Lactic Acid 1.1 mmol/L (0.4-2.0)
[2017-10-08 12:15] LABS: Platelet Estimate ADEQUATE (ADEQ); Red Cell Morphology NORM C+C NORMAL (NORM C&C)
[2017-10-08 12:26] LABS: BNP,B-Type NATRIURETIC PEPTIDE 349.5 pg/mL (0-100)
[2017-10-08] MEDS: Furosemide 40 MG/4 ML Vial IV ×2 (12:53→18:35)
[2017-10-08] MEDS: Nitroglycerin Oint 1 INCH PACKET 0.5 INCH TRANSDERM. (12:53)
--- NOTE | 2017-10-08 13:22 | NURSING ---
PCU CHF [facility]O
--- NOTE | 2017-10-08 13:45 | NURSING ---
DR GALINDO IN ER
--- NOTE | 2017-10-08 14:41 | HP.PCM_ITS ---
Problem List (1) Acute on chronic diastolic heart failure Status: Acute (2) Acquired deformity of toe of both feet Status: Acute (3) Acute respiratory failure with hypoxia Status: Acute (4) BRBPR (bright red blood per rectum) Status: Acute (5) Chest pain Status: Acute (6) Lymphedema in adult patient Status: Acute (7) Maceration of skin Status: Acute (8) Non-pressure chronic ulcer of other part of left foot limited to breakdown of skin Status: Acute (9) Non-pressure chronic ulcer of other part of right foot limited to breakdown of skin Status: Acute (10) Non-pressure chronic ulcer of other part of right lower leg limited to breakdown of skin Status: Acute (11) SOB (shortness of breath) Status: Acute (12) Type 2 diabetes mellitus with diabetic peripheral angiopathy without gangrene Status: Acute Qualifiers: (13) Type 2 diabetes mellitus with other circulatory complications Status: Acute (14) Aortic stenosis, mild Status: Chronic (15) CKD stage 3 secondary to diabetes Status: Chronic (16) Cholelithiasis Status: Chronic (17) Delayed wound healing Status: Chronic (18) Diabetes mellitus type 2 in obese Status: Chronic (19) Heart failure with preserved ejection fraction Status: Chronic (20) History of esophageal reflux Status: Chronic (21) History of hyperlipidemia Status: Chronic (22) History of hypertension Status: Chronic (23) Lymphedema of both lower extremities Status: Chronic (24) Neuropathy, peripheral Status: Chronic Qualifiers: (25) Noncompliance with treatment regimen Status: Chronic (26) Obesity (BMI 30.0-34.9) Status: Chronic (27) Other specified peripheral vascular diseases Status: Chronic (28) Pulmonary arterial hypertension Status: Chronic (29) Pulmonary nodules Status: Chronic (30) S/P CABG (coronary artery bypass graft) Status: Chronic (31) Stasis dermatitis of both legs Status: Chronic (32) Thrombocytopenia Status: Chronic (33) Tricuspid regurgitation Status: Chronic (34) Ulcer of left lower extremity with fat layer exposed Status: Chronic (35) Ulcer of right lower extremity with fat layer exposed Status: Chronic (36) Venous insufficiency of both lower extremities Status: Chronic (37) Venous ulcer of both lower extremities with varicose veins Status: Chronic (38) Bilateral lower leg cellulitis Status: Resolved (39) Diarrhea Status: Resolved (40) Non-pressure chronic ulcer of other part of left lower leg limited to breakdown of skin Status: Resolved (41) KIM (acute kidney injury) Status: Ruled-out (42) Cellulitis of right lower extremity Status: Ruled-out History of Present Illness Date of Admission: 10/08/17 Chief Complaint: Shortness of breath for few days The patient is a 66 year old F with multiple comorbidities including coronary artery disease status post CABG in May 2008, chronic heart failure diastolic in nature, chronic hypoxic respiratory failure on oxygen at night at home and bilateral lower extremity lymphedema with macerated skin and venous insufficiency came to ER progressive worsening of shortness of breath for a few days. Patient also complained of chest tightness but it is more nondescriptive localized and probably from shortness of breath. She denies any fever or chills. In ED, she was found tachypneic and hypoxic. EKG shows normal sinus rhythm with nonspecific ST-T changes. []Chest x-ray shows congestion and pulmonary edema with atelectasis and infiltrate in the lung bases. Patient was last admitted in July 2017 for lower extremity lymphedema with chronic superficial ulcer and maceration of the skin. Past Medical History Past Medical History (Chronic Problems): Chronic Problems Venous insufficiency of both lower extremities (Chronic) Other specified peripheral vascular diseases (Chronic) Ulcer of left lower extremity with fat layer exposed (Chronic) Ulcer of right lower extremity with fat layer exposed (Chronic) Delayed wound healing (Chronic) Noncompliance with treatment regimen (Chronic) 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) Diabetes mellitus type 2 in obese (Chronic) Aortic stenosis, mild (Chronic) Pulmonary arterial hypertension (Chronic) Pulmonary nodules (Chronic) Cholelithiasis (Chronic) Tricuspid regurgitation (Chronic) History of esophageal reflux (Chronic) History of hyperlipidemia (Chronic) History of hypertension (Chronic) S/P CABG (coronary artery bypass graft) (Chronic) Obesity (BMI 30.0-34.9) (Chronic) Stasis dermatitis of both legs (Chronic) Lymphedema of both lower extremities (Chronic) Heart failure with preserved ejection fraction (Chronic) 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) Thrombocytopenia (Chronic) Neuropathy, peripheral (Chronic) Allergies Penicillins Allergy (Verified 03/30/17 17:21) Rash rosiglitazone maleate [From Avandia] Allergy (Verified 03/30/17 17:21) Swelling & diarrhea simvastatin [From Zocor] Allergy (Verified 03/30/17 17:21) Muscle weakness atorvastatin calcium [From Lipitor] Adverse Reaction (Verified 03/30/17 17:21) Muscle weakness esomeprazole magnesium [From Nexium] Adverse Reaction (Verified 03/30/17 17:21) Diarrhea lansoprazole [From Prevacid] Adverse Reaction (Verified 03/30/17 17:21) Diarrhea Sulfa (Sulfonamide Antibiotics) Adverse Reaction (Verified 03/30/17 17:21) Nausea/Vom/Diarrhea from PCP office records Home Medications: Ambulatory Orders Medication Instructions Recorded Aspirin [Aspirin, Baby] 81 mg PO DAILY@0810/20/14 Ferrous Gluconate 325 mg PO DAILY@0810/21/14 Metoprolol Tartrate [Lopressor 100 mg PO BID 10/21/14 (beta apryl)] Pantoprazole Sodium [Protonix] 40 mg PO BID 10/21/14 Rosuvastatin Calcium [Crestor] 2.5 mg PO QHS 10/21/14 Nitroglycerin [Nitrostat] 0.4 mg SUBLINGUAL Q5M PRN 11/24/14 Gabapentin [Neurontin] 100 mg PO BID 07/02/15 Ergocalciferol [Vitamin D] 50,000 units PO SA 02/16/16 Isosorbide Mononitrate [Isosorbide 30 mg PO DAILY 02/16/16 Mononitrate ER] Niacinamide [Niacin] 500 mg PO BID 02/16/16 Furosemide [Lasix] 40 mg PO DAILY 05/06/16 Montelukast Sodium [Singulair] 10 mg PO QHS 05/06/16 Spironolactone 25 mg PO DAILY 06/10/16 Losartan Potassium [Cozaar] 100 mg PO DAILY #30 tablet 06/14/16 Gauze Bandage [Rolled Gauze] 1 each TP DAILY #20 bandage 09/04/16 Gauze/Lanolin/Min Oil/[place]/Wax 1 each TP DAILY #20 bandage 09/04/16 [Cuticerin 3X3 Dressing] Gauze/Lanolin/Min Oil/[place]/Wax 1 each TP DAILY #10 bandage 09/04/16 [Cuticerin 3X8 Dressing] Insulin Aspart [Novolog Flexpen] 20 units SC TIDAC #1 flexpen 10/06/16 Ondansetron [Zofran Odt] 8 mg PO Q6H PRN PRN 03/31/17 Insulin Glargine,Hum.rec.anlog 52 unit SQ QHS 08/20/17 [Mely Tobin U-100] Surgical History: coronary bypass surgery, - - Right femoral bypass surgery, cochlear impants Smoking Status: Former smoker - *Family History Sibling History Items: Heart Disease Maternal History Items: No pertinent history Paternal History Items: No pertinent history Review of Systems Constitutional: Denies: Chills, Fever, Weight Change HEENT: Denies: Head Aches, Sinus Congestion, Sinus Drainage Cardiovascular: Reports: Chest Tightness. Denies: Chest Pain, Palpitations Respiratory: Reports: Shortness of breath at rest, Shortness of breath upon exertion. Denies: Cough, Sputum production Gastrointestinal: Denies: Abdominal Pain, Nausea, Vomiting Genitourinary: Denies: Dysuria Musculoskeletal: Reports: Joint Pain. Denies: Joint Tenderness Skin: Reports: Rash, Skin Changes, Wounds Neurological: Denies: Numbness, Tingling, Focal weakness Psychiatric: Denies: Anxiety, Depression, Homicidal Ideations, Suicidal Ideations Hematologic/ Lymphatic: Denies: Easy Bruising, Easy Bleeding VTE Information - Inpt Only VTE Present on Admission: No VTE Mechan Device Prophylaxis: SCD's VTE Pharm Prophylaxis ordered?: Yes Patient Problems: Active and Suspected Problems Acute on chronic diastolic heart failure (Acute) - Physical Exam General: Alert, Oriented x3, Cooperative, Lethargic HEENT: Atraumatic, PERRLA, EOMI, Normocephalic Oral: Dry Mucosa Neck: Supple, No JVD, Negative Carotid Bruits Lungs: Diminished, Rhonchi, Short of Breath, Tachypneic, Wheezes Cardiovascular: Regular rate, Regular Rhythm, Normal S1, Normal S2, No murmurs, - - CABG scar Abdomen: Bowel Sounds Present, Soft, Non Tender, Non-Distended Extremities: Capillary Refill Less than 3 Seconds, Edema Skin: Ulcer/ Wound, Skin Tear, - - Bilateral lower legs lymphedema Musculoskeletal: No Tenderness to Palpation of Joints or Extremities, Arthritic Changes Neurological: Cranial nerves II-XII grossly intact Psych/Mental Status: Normal Affect, Appropriate Vital Signs Pulse Resp BP Pulse Ox 82 14 145/75 H 93 10/08/17 13:22 10/08/17 13:22 10/08/17 13:22 10/08/17 13:22 Oxygen Delivery Method Venturi Mask Assessment/Plan Active and Suspected Problems Acute on chronic diastolic heart failure (Acute) The patient is a 66 year old F with multiple comorbidities including coronary artery disease status post CABG in May 2008, chronic heart failure diastolic in nature, chronic hypoxic respiratory failure on oxygen at night at home and bilateral lower extremity lymphedema with macerated skin and venous insufficiency came to ER progressive worsening of shortness of breath for a few days. Patient also complained of chest tightness but it is more nondescriptive localized and probably from shortness of breath. She denies any fever or chills. In ED, she was found tachypneic and hypoxic. EKG shows normal sinus rhythm with nonspecific ST-T changes. []Chest x-ray shows congestion and pulmonary edema with atelectasis and infiltrate in the lung bases. Patient was last admitted in July 2017 for lower extremity lymphedema with chronic superficial ulcer and maceration of the skin. 1. Acute on chronic diastolic heart failure exact etiology unclear but possible due to noncompliance: Patient had echo in March 2016 which reported as normal LV size, normal systolic function with EF 65% with no regional wall motion abnormality. Moderate TR, RVSP 59 images a stable moderate pulmonary hypertension. Mild aortic stenosis with calculated aortic valve area 1.3 cm?. Normal left and right atrium. Patient is being admitted on the PCU floor. On heart failure regimen with Lasix 40 mg IV twice daily. Patient is already on metoprolol, losartan, aspirin and nitrate. Metoprolol dose decreased to 50 mg twice daily. Serial cardiac enzymes. Repeat 2D echo. Acute on chronic hypoxic respiratory failure most related to CHF exacerbation possible COPD: ABG ordered she never had ABG. oxygen to keep pulse ox more than 90%. #1 lower extremity lymphedema (chronic) with severe maceration of the skin: Wound care nurse. Dressing type and bandage as per nurseMichelle recommendation. #2 coronary artery disease status post CABG #3 severe pulmonary hypertension #4 type 2 diabetes on Lantus and NovoLog insulin, complicated with diabetic nephropathy stage III: Previous creatinine was 2.1 in July 2017. Currently 1.33 with GFR 40 mL/min. Monitor electrolytes and kidney function daily. A1c tomorrow a.m. Accu-Chek before meals and at bedtime and cover with NovoLog sliding scale. 5. Multiple comorbidities include chronic hypoxic respiratory failure on oxygen at night/as needed, possible COPD (no PFT in our EMR), coronary artery disease status post CABG: Patient is [place] admission. PT and OT ordered. Multiple comorbidities complicates the present care. DVT prophylaxis: Lovenox 40 mg subcu daily and bilateral basilio HOSE Clinical Impression(s) from Imaging Studies Chest X-Ray 10/08/17 11:03 IMPRESSION: Congestion and pulmonary edema, and atelectasis or infiltrates in the lung bases. Laboratory Results 10/08/17 11:35: WBC 10.1, RBC 3.92 L, Hgb 11.3 L, Hct 37.2, MCV 94.9, MCH 28.8, MCHC 30.4 L, RDW 16.3 H, RDW Differential 55.7 H, Plt Count 138 L, MPV 10.4, Immature Gran % (Auto) 0.300, Neut % (Auto) 90.2 H, Lymph % (Auto) 4.4 L, [place] % (Auto) 3.4, Eos % (Auto) 1.5, Baso % (Auto) 0.2, Absolute Neuts (auto) 9.1 H, Absolute Lymphs (auto) 0.44 L, Total Counted Not Reportable, Platelet Estimate ADEQUATE, RBC Morphology NORM C+C 10/08/17 11:35: Sodium 147 H, Potassium 4.1, Chloride 113 H, Carbon Dioxide 25.0 , Anion Gap 9, BUN 20 H, Creatinine 1.33 H, Estim Creat Clear Calc 41.97, Est GFR (MDRD) Af Amer 51 L, Est GFR (MDRD) Non-Af 42 L, BUN/Creatinine Ratio 15.0, Glucose 149 H, Calcium 8.2 L, Troponin I < 0.02 10/08/17 11:35: B-Natriuretic Peptide 349.5 H 10/08/17 11:35: Lactic Acid 1.1 This note was generated with [employer] dictation software. Every effort was made to ensure accuracy, however computerized photographer motion picture mistakes may persist. Code Visit Inpatient E&M: 16861 Init Hosp L3
--- NOTE | 2017-10-08 14:50 | ECHOD_ITS ---
Version 2 Reason For Study: CHF Procedure This was a 2D Doppler, Color Flow transthoracic echocardiogram. The study was technically difficult. Pt uncooperative, would not roll onto left side. Pt scanned supine. Exam performed portable in patient room. Left Ventricle Normal LV size. Left ventricular systolic function is normal. The estimated ejection fraction is 55 -60 %. Unable to assess diastolic dysfunction. Cannot acces but prob normal. Right Ventricle Normal RV size. Normal systolic function. Atria Normal left atrium. Normal right atrium. Mitral Valve Mitral valve not well visualized. Tricuspid Valve Normal tricuspid valve. Moderate (2+) tricuspid valve insufficiency. Pulmonary artery systolic pressure is 62 mmHg. Moderate pulmonary hypertension. Aortic Valve The aortic valve is not well visualized. Peak aortic valve gradient 40 mmHg. Mean aortic valve gradient 23 mmHg. Moderate aortic stenosis. Calculated aortic valve area (continuity equation) is 1.0 cm2. Pulmonic Valve The pulmonic valve is not well visualized. Great Vessels Normal aortic root. The pulmonary is not well visualized. Normal inferior vena cava. Pericardium/Pleural No pericardial effusion. MMode/2D Measurements & Calculations LVIDd: 4.8 cm IVSd: 1.3 cm LVOT diam: 2.0 cm LVIDs: 3.4 cm LVPWd: 1.1 cm LVOT area: 3.0 cm2 FS: 28.5 % Ao root diam: 2.9 cm LAV(MOD-bp): 33.0 ml LA A4 area: 17.0 cm2 LA dimension: 4.6 cm LAV(MOD-bp) Indexed: 15.2 ml/m2 LAV(MOD-sp2): 22.7 ml LAV(MOD-sp4): 38.5 ml RA A4 area: 12.3 cm2 Time Measurements MV dec time: 0.09 sec Doppler Measurements & Calculations MV E max dominick: 151.8 cm/sec Lat Peak E' Dominick: 6.5 cm/sec Med Peak E' Dominick: 4.9 cm/sec MV A max dominick: 102.7 cm/sec E/E' lat: 23.5 E/E' med: 31.0 MV E/A: 1.5 MV V2 max: 191.9 cm/sec MV P1/2t max dominick: 187.0 cm/sec Ao V2 max: 315.1 cm/sec MV max P.7 mmHg MV P1/2t: 50.0 msec Ao max P.7 mmHg MV V2 mean: 110.4 cm/sec MV dec slope: 1096 cm/sec2 Ao V2 mean: 232.3 cm/sec MV mean P.6 mmHg MVA(P1/2t): 4.4 cm2 Ao mean P.3 mmHg MV V2 VTI: 44.3 cm Ao V2 VTI: 64.8 cm MVA(VTI): 1.6 cm2 VIBHA(I,D): 1.1 cm2 VIBHA(V,D): 1.0 cm2 LV V1 max: 106.6 cm/sec SV(LVOT): 71.2 ml PA V2 max: 112.9 cm/sec LV V1 max P.6 mmHg LV V1 mean P.5 mmHg LV V1 mean: 76.2 cm/sec LV V1 VTI: 23.5 cm TR max dominick: 382.7 cm/sec TR max P.7 mmHg Interpretation Summary Normal LV size. Left ventricular systolic function is normal. The estimated ejection fraction is 55-60 %. Unable to assess diastolic dysfunction. Pulmonary artery systolic pressure is 62 mmHg. Moderate pulmonary hypertension. Mean aortic valve gradient 23 mmHg. Moderate aortic stenosis. The study was technically limited. The study was technically difficult. Compared to prior study, there is no significant change. Ordering Physician: Smith Newman Referring Physician: Kim Field Performed By: Jaimie Mayberry RDCS, RVT
[2017-10-08 16:05] LABS: Allen Test POS; Base Excess 0 mmol/L (-2 to +2); Bicarbonate 27.3 mmol/L (22-26); Blood Gas Specimen Type ART; FI02 50; PO2 64 mmHG (75-100); SITE L Radial; SO2 88 % (95-99); Time Given 1600; Total Carbon Dioxide 29 mmol/L; pCO2 61.5 mmHg (35-45); pH 7.26 (7.35-7.45)
[2017-10-08] MEDS: Isosorbide Mononitrate 30 MG Tablet PO (16:09)
[2017-10-08] MEDS: Aspirin 81 MG TAB.CHEW PO (16:09)
[2017-10-08] MEDS: Enoxaparin 40 MG/0.4 ML Syringe SC (16:09)
--- NOTE | 2017-10-08 16:49 | CPS ---
Patient unable to tolerate long enough to get Mask fastened or a VT reading. Tried lowering pressure to 12/5 patient still could not tolerate.
[2017-10-08] MEDS: Gabapentin 100 MG Capsule PO (17:29)
[2017-10-08 17:40] LABS: Bedside Glucose 156 mg/dL (70-110)
[2017-10-08] MEDS: Ipratropium/Albuterol Sulfate 3 ML AMPUL.NEB INHALATION ×2 (19:50→23:40)
[2017-10-08] MEDS: Pantoprazole Sodium 40 MG Tablet PO (22:26)
[2017-10-08] MEDS: guaiFENesin 1,200 MG Tablet 1200 MG PO (22:26)
[2017-10-08] MEDS: Rosuvastatin Calcium 5 MG Tablet 2.5 MG PO (22:27)
[2017-10-08] MEDS: Metoprolol Tartrate 50 MG Tablet PO (22:27)
[2017-10-08] MEDS: Montelukast 10 MG Tablet PO (22:27)
[2017-10-08 22:46] LABS: Bedside Glucose 211 mg/dL (70-110)
[2017-10-09] VITALS (23 sets, daily range): BP systolic 135–169; BP diastolic 55–70; PULSE 69–92; RESP 18–30; TEMP 36–36.8; O2SAT 86–100
[2017-10-09 03:11] LABS: Absolute Lymphocyte Count 0.14 X10^3/ul (0.83-4.51); Basophil# 0.01 X10^3/uL; Basophil% 0.1 % (0-1); Hematocrit 34.2 % (37-47); Hemoglobin 10.4 g/dl (12.0-15.0); Lymphocyte # 0.14 X10^3/ul (4.0); Lymphocyte % 1.7 % (19-41); Mean Corp Hgb Conc 30.4 g/gl (32-36); Mean Corpuscular Hgb 29.2 pg (27.0-32.0); Mean Corpuscular Volume 96.1 fL (81-99); Mean Platelet Vol. 10.1 fl (6.2-12.0); Monocyte# 0.06 X10^3/uL; Monocyte% 0.7 % (0-10); Neutrophil # 8.01 X10^3/uL (2.7-7.7); Neutrophil % 96.8 % (47-70); Platelet Count 120 K/mm3 (150-450); RBC Distribution Width SD 53.1 fl (35.1-43.9); Red Blood Count 3.56 M/mm3 (4.2-5.4); White Blood Count 8.3 K/mm3 (4.4-11.0)
[2017-10-09 03:13] LABS: POSITIVE COUNT NO; POSITIVE DIFFERENTIAL YES; POSITIVE MORPHOLOGY NO
[2017-10-09 03:14] LABS: Differential Indicated SCAN CRITERIA MET
[2017-10-09 03:31] LABS: Anion Gap 8 (5-15); BUN 22 mg/dL (7-18); BUN/Creat Ratio 15.8 RATIO (10-20); Calcium,Total 8.1 mg/dL (8.5-10.1); Chloride 113 mmol/L (98-107); Cholesterol 112 mg/dL (200); Creatinine, Serum 1.39 mg/dL (0.55-1.02); EST Glomerular Filtration Rate 40 mL/min (>60); Est Glom Filt Rate - Afr Amer 49 mL/min (>60); Estimated Creatinine Clearance 40.16 ml/min; Glucose 199 mg/dL (74-106); High Density Lipoprotein 51 mg/dL; Magnesium 2.1 mg/dL (1.6-2.6); Potassium 4.7 mmol/L (3.5-5.1); Sodium Level 147 mmol/L (136-145); Thyroid Stim Hormone (TSH) 2.57 uIU/mL (0.358-3.74); Triglycerides 82 mg/dL; Very Low Density Lipoprotein 16 mg/dL (5-40)
--- NOTE | 2017-10-09 04:52 | CPS ---
pt declined use of our bipap this pm
[2017-10-09 06:06] LABS: Hemoglobin A1c 6.1 % (4.2-6.3)
[2017-10-09 06:55] LABS: Bedside Glucose 228 mg/dL (70-110)
[2017-10-09] MEDS: Ipratropium/Albuterol Sulfate 3 ML AMPUL.NEB INHALATION ×3 (07:53→19:57)
[2017-10-09] MEDS: Aspirin 81 MG TAB.CHEW PO (07:59)
[2017-10-09] MEDS: Gabapentin 100 MG Capsule PO ×2 (07:59→16:50)
[2017-10-09] MEDS: Ferrous Gluconate 325 MG Tablet PO (07:59)
--- NOTE | 2017-10-09 09:32 | NURSING ---
photo: left lower leg
--- NOTE | 2017-10-09 09:33 | NURSING ---
photo: right lower leg
[2017-10-09] MEDS: Pantoprazole Sodium 40 MG Tablet PO ×2 (10:56→21:28)
[2017-10-09] MEDS: Furosemide 40 MG/4 ML Vial IV ×2 (10:56→16:50)
[2017-10-09] MEDS: Losartan Potassium 100 MG Tablet PO (10:56)
[2017-10-09] MEDS: Isosorbide Mononitrate 30 MG Tablet PO (10:56)
[2017-10-09] MEDS: Metoprolol Tartrate 50 MG Tablet PO ×2 (10:56→21:28)
[2017-10-09] MEDS: Spironolactone 25 MG Tablet PO (10:56)
[2017-10-09] MEDS: guaiFENesin 1,200 MG Tablet 1200 MG PO ×2 (10:56→21:28)
[2017-10-09 11:06] LABS: Bedside Glucose 238 mg/dL (70-110)
--- NOTE | 2017-10-09 12:50 | PCM.PROGNOTE ---
Patient Problems: Active and Suspected Problems Acute on chronic diastolic heart failure (Acute) Subjective: Patient seen and examined. States shortness of breath is improved. Denies fever, chills. Discussed with patient [facility] at discharge. She states she is willing to do that in the future but not at this time. Wishes to go home at discharge. Denies other complaints. - Physical Exam General: Alert, Oriented x3, Cooperative, No apparent distress HEENT: Atraumatic, PERRLA, EOMI, Normocephalic Oral: Dry Mucosa Neck: Supple, No JVD, Negative Carotid Bruits Lungs: Diminished, Rhonchi, Wheezes Cardiovascular: Regular rate, Regular Rhythm, Normal S1, Normal S2, No murmurs Abdomen: Bowel Sounds Present, Soft, Non Tender, Non-Distended Extremities: - - Bilateral lower extremity lymphedema with severe maceration. Musculoskeletal: No Tenderness to Palpation of Joints or Extremities Neurological: Cranial nerves II-XII grossly intact, Neuro grossly intact Psych/Mental Status: Normal Affect, Appropriate Vital Signs Temp Pulse Resp BP Pulse Ox 98.0 F 76 19 H 145/59 H 95 10/09/17 12:00 10/09/17 12:00 10/09/17 12:00 10/09/17 12:00 10/09/17 12:00 Oxygen Flow Rate (L/min) 5 Oxygen Delivery Method Nasal Cannula Weight: 105.4 kg Body Mass Index (BMI) 35.4 Intake and Output for Last 24 Hours 10/07/17 10/08/17 10/09/17 23:59 23:59 23:59 Intake Total 50 / 50 900 / 900 Output Total 950 / 950 Balance 50 / 50 -50 / -50 Microbiology Past 72 Hours 10/08/17 20:00 Influenza Types A,B Direct FA (JESSICA) - Final Mucosa - Nasopharyngeal Laboratory Tests Past 24 Hrs 10/08/17 10/08/17 10/08/17 16:00 16:05 19:00 WBC RBC Hgb Hct MCV MCH MCHC RDW RDW Differential Plt Count MPV Immature Gran % (Auto) Neut % (Auto) Lymph % (Auto) [place] % (Auto) Eos % (Auto) Baso % (Auto) Absolute Neuts (auto) Absolute Lymphs (auto) Total Counted Specimen Type ART Sample Site L Radial pH 7.26 L Bicarbonate Actual 27.3 H POC Total CO2 29 Base Excess 0 O2 Saturation 88 L O2 % 50 ABG pCO2 61.5 H ABG pO2 64 L Ray Test POS O2 Delivery Device Vent Mask Blood Gas Notified Whom [facility] Blood Gas Notified Time 1600 Sodium Potassium Chloride Carbon Dioxide Anion Gap BUN Creatinine Estim Creat Clear Calc Est GFR (MDRD) Af Amer Est GFR (MDRD) Non-Af BUN/Creatinine Ratio Glucose Hemoglobin A1c Calcium Magnesium Troponin I < 0.02 < 0.02 Triglycerides Cholesterol LDL Cholesterol VLDL Cholesterol HDL Cholesterol TSH 10/09/17 10/09/17 10/09/17 02:00 02:00 02:00 WBC 8.3 RBC 3.56 L Hgb 10.4 L Hct 34.2 L MCV 96.1 MCH 29.2 MCHC 30.4 L RDW 16.0 H RDW Differential 53.1 H Plt Count 120 L MPV 10.1 Immature Gran % (Auto) 0.700 Neut % (Auto) 96.8 H Lymph % (Auto) 1.7 L [place] % (Auto) 0.7 Eos % (Auto) 0.0 Baso % (Auto) 0.1 Absolute Neuts (auto) 8.0 H Absolute Lymphs (auto) 0.14 L Total Counted Not Reportable Specimen Type Sample Site pH Bicarbonate Actual POC Total CO2 Base Excess O2 Saturation O2 % ABG pCO2 ABG pO2 Ray Test O2 Delivery Device Blood Gas Notified Whom Blood Gas Notified Time Sodium 147 H Potassium 4.7 Chloride 113 H Carbon Dioxide 26.0 Anion Gap 8 BUN 22 H Creatinine 1.39 H Estim Creat Clear Calc 40.16 Est GFR (MDRD) Af Amer 49 L Est GFR (MDRD) Non-Af 40 L BUN/Creatinine Ratio 15.8 Glucose 199 H Hemoglobin A1c 6.1 Calcium 8.1 L Magnesium 2.1 Troponin I Triglycerides 82 Cholesterol 112 LDL Cholesterol 45 VLDL Cholesterol 16 HDL Cholesterol 51 TSH 2.57 10/09/17 02:00 WBC RBC Hgb Hct MCV MCH MCHC RDW RDW Differential Plt Count MPV Immature Gran % (Auto) Neut % (Auto) Lymph % (Auto) [place] % (Auto) Eos % (Auto) Baso % (Auto) Absolute Neuts (auto) Absolute Lymphs (auto) Total Counted Specimen Type Sample Site pH Bicarbonate Actual POC Total CO2 Base Excess O2 Saturation O2 % ABG pCO2 ABG pO2 Ray Test O2 Delivery Device Blood Gas Notified Whom Blood Gas Notified Time Sodium Potassium Chloride Carbon Dioxide Anion Gap BUN Creatinine Estim Creat Clear Calc Est GFR (MDRD) Af Amer Est GFR (MDRD) Non-Af BUN/Creatinine Ratio Glucose Hemoglobin A1c Calcium Magnesium Troponin I < 0.02 Triglycerides Cholesterol LDL Cholesterol VLDL Cholesterol HDL Cholesterol TSH POC Glucose 10/09/17 10/09/17 10/08/17 10:51 06:46 22:21 POC Glucose 238 H 228 H 211 H 10/08/17 17:25 POC Glucose 156 H Medical Necessity - Tobacco Use Smoking Status: Former smoker Tobacco Use: Cigarettes Assessment/Plan Active and Suspected Problems Acute on chronic diastolic heart failure (Acute) Patient is a 66-year-old female admitted 10/08/17 due to shortness of breath. She has a past medical history of CAD status post CABG in May 2008, CHF, chronic hypoxic respiratory failure requiring supplemental oxygen at night, bilateral lower extremity lymphedema, type 2 diabetes mellitus, hyperlipidemia, hypertension, chronic kidney disease stage III, GERD, obesity. 1. Acute on chronic hypoxic respiratory failure secondary to acute on chronic diastolic CHF-echocardiogram March 2016 showed an EF of 65%, pulmonary artery systolic pressure 59 mmHg, moderate pulmonary hypertension, mild aortic stenosis. Repeat echocardiogram pending. Chest x-ray on admission showed congestion and pulmonary edema. Continue IV Lasix 40 mg twice daily. Continue metoprolol, losartan. Troponin negative. Daily weight. I&O. Continue supplemental oxygen to maintain O2 at or above 90%. 2. CAD-status post CABG in May 2008. Continue aspirin, statin, metoprolol, losartan, Imdur. 3. Bilateral lower extremity lymphedema-bilateral lower extremities severely macerated. Wound RN consulted. Continue dressing changes with Aquacel Ag, cover with dry dressings and wrapped with Kerlix. Patient had recent lower extremity arterial study 09/23/2017 which showed normal arterial perfusion bilaterally. Follows with wound center. 4. Type 2 diabetes [id number] before meals at bedtime with sliding scale insulin and Levemir 40 units nightly. Hemoglobin A1c 6.1%. 5. Hyperlipidemia-continue statin. 6. Hypertension-stable, continue current regimen. 7. Chronic kidney disease stage III-creatinine at baseline. Monitor BMP. 8. GERD-continue PPI. 9. Obesity-encouraged diet and lifestyle modifications. DVT prophylaxis-Lovenox subcu. This patient was seen by MICHAELA Ohara under the supervision of Dr. Talamantes.
--- NOTE | 2017-10-09 13:20 | PN_ITS ---
Patient Problems: Active and Suspected Problems Acute on chronic diastolic heart failure (Acute) Subjective: Patient seen and examined. States shortness of breath is improved. Denies fever, chills. Discussed with patient halfway facility at discharge. She states she is willing to do that in the future but not at this time. Wishes to go home at discharge. Denies other complaints. - Physical Exam General: Alert, Oriented x3, Cooperative, No apparent distress HEENT: Atraumatic, PERRLA, EOMI, Normocephalic Oral: Dry Mucosa Neck: Supple, No JVD, Negative Carotid Bruits Lungs: Diminished, Rhonchi, Wheezes Cardiovascular: Regular rate, Regular Rhythm, Normal S1, Normal S2, No murmurs Abdomen: Bowel Sounds Present, Soft, Non Tender, Non-Distended Extremities: - - Bilateral lower extremity lymphedema with severe maceration. Musculoskeletal: No Tenderness to Palpation of Joints or Extremities Neurological: Cranial nerves II-XII grossly intact, Neuro grossly intact Psych/Mental Status: Normal Affect, Appropriate Vital Signs Temp Pulse Resp BP Pulse Ox 98.0 F 76 19 H 145/59 H 95 10/09/17 12:00 10/09/17 12:00 10/09/17 12:00 10/09/17 12:00 10/09/17 12:00 Oxygen Flow Rate (L/min) 5 Oxygen Delivery Method Nasal Cannula Weight: 105.4 kg Body Mass Index (BMI) 35.4 Intake and Output for Last 24 Hours 10/07/17 10/08/17 10/09/17 23:59 23:59 23:59 Intake Total 50 / 50 900 / 900 Output Total 950 / 950 Balance 50 / 50 -50 / -50 Microbiology Past 72 Hours 10/08/17 20:00 Influenza Types A,B Direct FA (JESSICA) - Final Mucosa - Nasopharyngeal Laboratory Tests Past 24 Hrs 10/08/17 10/08/17 10/08/17 16:00 16:05 19:00 WBC RBC Hgb Hct MCV MCH MCHC RDW RDW Differential Plt Count MPV Immature Gran % (Auto) Neut % (Auto) Lymph % (Auto) Leon % (Auto) Eos % (Auto) Baso % (Auto) Absolute Neuts (auto) Absolute Lymphs (auto) Total Counted Specimen Type ART Sample Site L Radial pH 7.26 L Bicarbonate Actual 27.3 H POC Total CO2 29 Base Excess 0 O2 Saturation 88 L O2 % 50 ABG pCO2 61.5 H ABG pO2 64 L Ray Test POS O2 Delivery Device Vent Mask Blood Gas Notified Whom [facility] Blood Gas Notified Time 1600 Sodium Potassium Chloride Carbon Dioxide Anion Gap BUN Creatinine Estim Creat Clear Calc Est GFR (MDRD) Af Amer Est GFR (MDRD) Non-Af BUN/Creatinine Ratio Glucose Hemoglobin A1c Calcium Magnesium Troponin I < 0.02 < 0.02 Triglycerides Cholesterol LDL Cholesterol VLDL Cholesterol HDL Cholesterol TSH 10/09/17 10/09/17 10/09/17 02:00 02:00 02:00 WBC 8.3 RBC 3.56 L Hgb 10.4 L Hct 34.2 L MCV 96.1 MCH 29.2 MCHC 30.4 L RDW 16.0 H RDW Differential 53.1 H Plt Count 120 L MPV 10.1 Immature Gran % (Auto) 0.700 Neut % (Auto) 96.8 H Lymph % (Auto) 1.7 L Leon % (Auto) 0.7 Eos % (Auto) 0.0 Baso % (Auto) 0.1 Absolute Neuts (auto) 8.0 H Absolute Lymphs (auto) 0.14 L Total Counted Not Reportable Specimen Type Sample Site pH Bicarbonate Actual POC Total CO2 Base Excess O2 Saturation O2 % ABG pCO2 ABG pO2 Ray Test O2 Delivery Device Blood Gas Notified Whom Blood Gas Notified Time Sodium 147 H Potassium 4.7 Chloride 113 H Carbon Dioxide 26.0 Anion Gap 8 BUN 22 H Creatinine 1.39 H Estim Creat Clear Calc 40.16 Est GFR (MDRD) Af Amer 49 L Est GFR (MDRD) Non-Af 40 L BUN/Creatinine Ratio 15.8 Glucose 199 H Hemoglobin A1c 6.1 Calcium 8.1 L Magnesium 2.1 Troponin I Triglycerides 82 Cholesterol 112 LDL Cholesterol 45 VLDL Cholesterol 16 HDL Cholesterol 51 TSH 2.57 10/09/17 02:00 WBC RBC Hgb Hct MCV MCH MCHC RDW RDW Differential Plt Count MPV Immature Gran % (Auto) Neut % (Auto) Lymph % (Auto) Leon % (Auto) Eos % (Auto) Baso % (Auto) Absolute Neuts (auto) Absolute Lymphs (auto) Total Counted Specimen Type Sample Site pH Bicarbonate Actual POC Total CO2 Base Excess O2 Saturation O2 % ABG pCO2 ABG pO2 Ray Test O2 Delivery Device Blood Gas Notified Whom Blood Gas Notified Time Sodium Potassium Chloride Carbon Dioxide Anion Gap BUN Creatinine Estim Creat Clear Calc Est GFR (MDRD) Af Amer Est GFR (MDRD) Non-Af BUN/Creatinine Ratio Glucose Hemoglobin A1c Calcium Magnesium Troponin I < 0.02 Triglycerides Cholesterol LDL Cholesterol VLDL Cholesterol HDL Cholesterol TSH POC Glucose 10/09/17 10/09/17 10/08/17 10:51 06:46 22:21 POC Glucose 238 H 228 H 211 H 10/08/17 17:25 POC Glucose 156 H Medical Necessity - Tobacco Use Smoking Status: Former smoker Tobacco Use: Cigarettes Assessment/Plan Active and Suspected Problems Acute on chronic diastolic heart failure (Acute) Patient is a 66-year-old female admitted 10/08/17 due to shortness of breath. She has a past medical history of CAD status post CABG in May 2008, CHF, chronic hypoxic respiratory failure requiring supplemental oxygen at night, bilateral lower extremity lymphedema, type 2 diabetes mellitus, hyperlipidemia, hypertension, chronic kidney disease stage III, GERD, obesity. 1. Acute on chronic hypoxic respiratory failure secondary to acute on chronic diastolic CHF-echocardiogram March 2016 showed an EF of 65%, pulmonary artery systolic pressure 59 mmHg, moderate pulmonary hypertension, mild aortic stenosis. Repeat echocardiogram pending. Chest x-ray on admission showed congestion and pulmonary edema. Continue IV Lasix 40 mg twice daily. Continue metoprolol, losartan. Troponin negative. Daily weight. I&O. Continue supplemental oxygen to maintain O2 at or above 90%. 2. CAD-status post CABG in May 2008. Continue aspirin, statin, metoprolol , losartan, Imdur. 3. Bilateral lower extremity lymphedema-bilateral lower extremities severely macerated. Wound RN consulted. Continue dressing changes with Aquacel Ag, cover with dry dressings and wrapped with Kerlix. Patient had recent lower extremity arterial study 09/23/2017 which showed normal arterial perfusion bilaterally. Follows with wound center. 4. Type 2 diabetes [id number] before meals at bedtime with sliding scale insulin and Levemir 40 units nightly. Hemoglobin A1c 6.1%. 5. Hyperlipidemia-continue statin. 6. Hypertension-stable, continue current regimen. 7. Chronic kidney disease stage III-creatinine at baseline. Monitor BMP. 8. GERD-continue PPI. 9. Obesity-encouraged diet and lifestyle modifications. DVT prophylaxis-Lovenox subcu. This patient was seen by MICHAELA Ohara under the supervision of Dr. Talamantes.
--- NOTE | 2017-10-09 13:40 | CASEMGMT ---
See ALONSO BARR Assessment Link. DC PLAN: undetermined. Home with HHS vs SNF. -ALONSO BARR called to wound center to verify pt is being seen. Pt has been compliant with once a week appointments (usually Thursday'). Nurse @ Wound Center is setting up Home Health. Will call back with name of agency. Called to Delfina @ [facility] (pt has been client in past). They have not received referral from Wound Center, but would consider pt for RN (cannot do PT/OT) if wound care is not every day. ALONSO BARR let her know we will contact her if needed. -Oxygen/nebulizer through [facility] -PT/OT ordered, evaluations pending. - referral for Passport Referral. King GANT RN ACM
[2017-10-09 14:25] LABS: BNP,B-Type NATRIURETIC PEPTIDE 368.6 pg/mL (0-100)
--- NOTE | 2017-10-09 14:34 | CASEMGMT ---
SW met with patient to discuss Passport. SW introduced self and explained Passport services. She had a response for every service SW mentioned. She said she is on [facility] program where her meds are all filled at the same time. Her brother goes and picks up her meds. She uses the taxi program to get to and from her appts. She is working with her insurance on transportation as well. She said her brother gets Meals on Wheels and sometimes they bring an extra meal for her. SW told her she would be able to get her own meals. She said she pays for the groceries. SW told her they could help with bathing, cleaning and getting equipment in the home. She said she does not need help with bathing. She said, There was another SW that was just in here that asked me this already. You are just repeating everything. She said she does not need any help. At that time therapy then came into the room to work with patient. Milady KELLY MSW
--- NOTE | 2017-10-09 15:29 | CASEMGMT ---
Call received from Wound Center nurse re: home health. Referral had been sent to [facility] in [place]. Call to [facility]- spoke with Kiki. they are able to take pt with start of care next week. RN cannot do drsg changes every day. RN CM let her know pt also goes to wound clinic. Referral faxed. Green sheet placed on chart. King GANT RN ACM
[2017-10-09] MEDS: Enoxaparin 40 MG/0.4 ML Syringe SC (15:48)
[2017-10-09] MEDS: Albuterol 2.5 MG/3 ML VIAL.NEB. INHALATION (16:17)
[2017-10-09] MEDS: Rosuvastatin Calcium 5 MG Tablet 2.5 MG PO (21:27)
[2017-10-09] MEDS: Montelukast 10 MG Tablet PO (21:28)
[2017-10-09 21:40] LABS: Bedside Glucose 321 mg/dL (70-110)
[2017-10-09 21:40] LABS: Bedside Glucose 324 mg/dL (70-110)
[2017-10-09] MEDS: Acetaminophen 325 MG Tablet 650 MG PO (23:55)
[2017-10-10] VITALS (21 sets, daily range): BP systolic 153–169; BP diastolic 63–78; PULSE 69–91; RESP 16–28; TEMP 36.4–36.8; O2SAT 2–100
[2017-10-10] MEDS: Ipratropium/Albuterol Sulfate 3 ML AMPUL.NEB INHALATION ×4 (03:52→23:01)
--- NOTE | 2017-10-10 06:14 | EKG12_ITS ---
Test Reason : ARRYTHMIA Blood Pressure : / mmHG Vent. Rate : 078 BPM Atrial Rate : 078 BPM P-R Int : 130 ms QRS Dur : 084 ms QT Int : 380 ms P-R-T Axes : 033 025 229 degrees QTc Int : 433 ms Sinus rhythm with Premature atrial complexes Nonspecific ST and T wave abnormality Abnormal ECG When compared with ECG of 08-OCT-2017 11:18, No significant change was found Confirmed by DILLON TREJO ([id number]), production editor PROMISE DICKINSON ([id number]) on 10/15/2017 3:00:49 PM Referred By: MATEO Confirmed By:DILLON TREJO
[2017-10-10] MEDS: Enoxaparin 40 MG/0.4 ML Syringe SC (06:26)
[2017-10-10 07:06] LABS: Bedside Glucose 279 mg/dL (70-110)
[2017-10-10] MEDS: Pantoprazole Sodium 40 MG Tablet PO ×2 (09:21→22:54)
[2017-10-10] MEDS: Gabapentin 100 MG Capsule PO ×2 (09:21→17:00)
[2017-10-10] MEDS: Metoprolol Tartrate 50 MG Tablet PO ×2 (09:21→22:53)
[2017-10-10] MEDS: guaiFENesin 1,200 MG Tablet 1200 MG PO ×2 (09:21→22:53)
[2017-10-10] MEDS: Aspirin 81 MG TAB.CHEW PO (09:21)
[2017-10-10] MEDS: Spironolactone 25 MG Tablet PO (09:21)
[2017-10-10] MEDS: Ferrous Gluconate 325 MG Tablet PO (09:24)
[2017-10-10] MEDS: Isosorbide Mononitrate 30 MG Tablet PO (09:24)
[2017-10-10] MEDS: Losartan Potassium 100 MG Tablet PO (09:24)
[2017-10-10] MEDS: Furosemide 40 MG/4 ML Vial IV ×2 (09:44→17:00)
[2017-10-10 11:36] LABS: Bedside Glucose 250 mg/dL (70-110)
--- NOTE | 2017-10-10 13:48 | PN_ITS ---
Patient Problems: Active and Suspected Problems Acute on chronic diastolic heart failure (Acute) Subjective: Patient seen and examined. Shortness of breath has improved. She states she continues to be slightly more short of breath than her baseline. Complains of general malaise. Denies other complaints. - Physical Exam General: Alert, Oriented x3, Cooperative, No apparent distress HEENT: Atraumatic, PERRLA, EOMI, Normocephalic Oral: Dry Mucosa Neck: Supple, No JVD, Negative Carotid Bruits Lungs: Diminished, Wheezes Cardiovascular: Regular rate, Regular Rhythm, Normal S1, Normal S2, No murmurs Abdomen: Bowel Sounds Present, Soft, Non Tender, Non-Distended, Obese Extremities: - - Bilateral lower extremity lymphedema with severe maceration. Musculoskeletal: No Tenderness to Palpation of Joints or Extremities Neurological: Cranial nerves II-XII grossly intact, Neuro grossly intact Psych/Mental Status: Normal Affect, Appropriate Vital Signs Temp Pulse Resp BP Pulse Ox 98.3 F 86 18 164/69 H 95 10/10/17 09:30 10/10/17 11:00 10/10/17 09:30 10/10/17 09:30 10/10/17 09:30 Oxygen Flow Rate (L/min) 3 Oxygen Delivery Method Nasal Cannula Weight: 105.3 kg Body Mass Index (BMI) 35.4 Intake and Output for Last 24 Hours 10/08/17 10/09/17 10/10/17 23:59 23:59 23:59 Intake Total 50 / 50 1350 / 1350 1180 / 1180 Output Total 950 / 950 Balance 50 / 50 400 / 400 1180 / 1180 Microbiology Past 72 Hours 10/08/17 20:00 Influenza Types A,B Direct FA (JESSICA) - Final Mucosa - Nasopharyngeal Laboratory Tests Past 24 Hrs 10/09/17 02:00 B-Natriuretic Peptide 368.6 H POC Glucose 10/10/17 10/10/17 10/09/17 11:08 07:02 21:27 POC Glucose 250 H 279 H 324 H 10/09/17 16:47 POC Glucose 321 H Medical Necessity - Tobacco Use Smoking Status: Former smoker Tobacco Use: Cigarettes Assessment/Plan Active and Suspected Problems Acute on chronic diastolic heart failure (Acute) Patient is a 66-year-old female admitted 10/08/17 due to shortness of breath. She has a past medical history of CAD status post CABG in May 2008, CHF, chronic hypoxic respiratory failure requiring supplemental oxygen at night, bilateral lower extremity lymphedema, type 2 diabetes mellitus, hyperlipidemia, hypertension, chronic kidney disease stage III, GERD, obesity. 1. Acute on chronic hypoxic respiratory failure secondary to acute on chronic diastolic CHF-echocardiogram March 2016 showed an EF of 65%, pulmonary artery systolic pressure 59 mmHg, moderate pulmonary hypertension, mild aortic stenosis. Repeat echocardiogram pending. Chest x-ray on admission showed congestion and pulmonary edema. Continue IV Lasix 40 mg twice daily. Continue metoprolol, losartan. Troponin negative. Daily weight. I&O. Continue supplemental oxygen to maintain O2 at or above 90%. 2. CAD-status post CABG in May 2008. Continue aspirin, statin, metoprolol , losartan, Imdur. 3. Bilateral lower extremity lymphedema-bilateral lower extremities severely macerated. Wound RN consulted. Continue dressing changes with Aquacel Ag, cover with dry dressings and wrapped with Kerlix. Patient had recent lower extremity arterial study 09/23/2017 which showed normal arterial perfusion bilaterally. Follows with wound center. 4. Type 2 diabetes [id number] before meals at bedtime with sliding scale insulin and Levemir 40 units nightly. Hemoglobin A1c 6.1%. 5. Hyperlipidemia-continue statin. 6. Hypertension-stable, continue current regimen. 7. Chronic kidney disease stage III-creatinine at baseline. Monitor BMP. 8. GERD-continue PPI. 9. Obesity-encouraged diet and lifestyle modifications. DVT prophylaxis-Lovenox subcu. This patient was seen by MICHAELA Ohara under the supervision of Dr. Echeverria.
[2017-10-10] MEDS: amLODIPine 10 MG Tablet PO (14:48)
[2017-10-10] MEDS: Rosuvastatin Calcium 5 MG Tablet 2.5 MG PO (22:52)
[2017-10-10] MEDS: Montelukast 10 MG Tablet PO (22:54)
[2017-10-10 23:06] LABS: Bedside Glucose 115 mg/dL (70-110)
[2017-10-10 23:10] LABS: Bedside Glucose 178 mg/dL (70-110)
[2017-10-11] VITALS (13 sets, daily range): BP systolic 137–147; BP diastolic 57–63; PULSE 68–150; RESP 16–24; TEMP 36.4–36.8; O2SAT 64–98
[2017-10-11] MEDS: Ipratropium/Albuterol Sulfate 3 ML AMPUL.NEB INHALATION ×3 (02:33→11:05)
[2017-10-11] MEDS: Enoxaparin 40 MG/0.4 ML Syringe SC (05:59)
[2017-10-11 06:33] LABS: Hematocrit 35.3 % (37-47); Hemoglobin 10.7 g/dl (12.0-15.0); Mean Corp Hgb Conc 30.3 g/gl (32-36); Mean Corpuscular Hgb 29.3 pg (27.0-32.0); Mean Corpuscular Volume 96.7 fL (81-99); Mean Platelet Vol. 10.1 fl (6.2-12.0); Platelet Count 133 K/mm3 (150-450); RBC Distribution Width CV 16.7 % (11.6-14.6); RBC Distribution Width SD 56.5 fl (35.1-43.9); Red Blood Count 3.65 M/mm3 (4.2-5.4); White Blood Count 8.7 K/mm3 (4.4-11.0)
[2017-10-11 06:37] LABS: Scan Indicated on CBC? Y/N NO
[2017-10-11 06:55] LABS: Anion Gap 5 (5-15); BUN 39 mg/dL (7-18); BUN/Creat Ratio 28.9 RATIO (10-20); Calcium,Total 8.4 mg/dL (8.5-10.1); Chloride 109 mmol/L (98-107); Creatinine, Serum 1.35 mg/dL (0.55-1.02); EST Glomerular Filtration Rate 42 mL/min (>60); Est Glom Filt Rate - Afr Amer 50 mL/min (>60); Estimated Creatinine Clearance 41.35 ml/min; Glucose 135 mg/dL (74-106); Potassium 4.1 mmol/L (3.5-5.1); Sodium Level 145 mmol/L (136-145)
[2017-10-11] MEDS: Isosorbide Mononitrate 30 MG Tablet PO (09:04)
[2017-10-11] MEDS: Metoprolol Tartrate 50 MG Tablet PO (09:04)
[2017-10-11] MEDS: amLODIPine 5 MG Tablet PO (09:04)
[2017-10-11] MEDS: Ferrous Gluconate 325 MG Tablet PO (09:04)
[2017-10-11] MEDS: Pantoprazole Sodium 40 MG Tablet PO (09:04)
[2017-10-11] MEDS: Losartan Potassium 100 MG Tablet PO (09:04)
[2017-10-11] MEDS: Spironolactone 25 MG Tablet PO (09:04)
[2017-10-11] MEDS: Furosemide 40 MG/4 ML Vial IV (09:05)
[2017-10-11] MEDS: Gabapentin 100 MG Capsule PO (09:05)
[2017-10-11] MEDS: guaiFENesin 1,200 MG Tablet 1200 MG PO (09:05)
[2017-10-11] MEDS: Aspirin 81 MG TAB.CHEW PO (09:05)
[2017-10-11 09:51] LABS: Bedside Glucose 150 mg/dL (70-110)
--- NOTE | 2017-10-11 11:20 | DCINST_ITS ---
- Discharge Diagnoses Current Active Problems: Current Active and Chronic Problems Acute on chronic diastolic heart failure (Acute) You will use the following diet at home:: Cardiac Discharge Activity: Return to Normal Activity Call your doctor if you observe: Shortness of breath, Dizziness, Fainting spells , Chest pain, Increased palpitations (irregular heartbeat) Allergies/Adverse Reactions: Allergies Penicillins Allergy (Verified 03/30/17 17:21) Rash rosiglitazone maleate [From Avandia] Allergy (Verified 03/30/17 17:21) Swelling & diarrhea simvastatin [From Zocor] Allergy (Verified 03/30/17 17:21) Muscle weakness atorvastatin calcium [From Lipitor] Adverse Reaction (Verified 03/30/17 17:21) Muscle weakness esomeprazole magnesium [From Nexium] Adverse Reaction (Verified 03/30/17 17:21) Diarrhea lansoprazole [From Prevacid] Adverse Reaction (Verified 03/30/17 17:21) Diarrhea Sulfa (Sulfonamide Antibiotics) Adverse Reaction (Verified 03/30/17 17:21) Nausea/Vom/Diarrhea from PCP office records Medications to take at Discharge Aspirin [Aspirin, Baby] 81 mg PO DAILY@0800 10/20/14 Ferrous Gluconate 325 mg PO DAILY@0800 10/21/14 Metoprolol Tartrate [Lopressor (beta apryl)] 100 mg PO BID 10/21/14 Pantoprazole Sodium [Protonix] 40 mg PO BID 10/21/14 Rosuvastatin Calcium [Crestor] 2.5 mg PO QHS 10/21/14 Nitroglycerin [Nitrostat] 0.4 mg SUBLINGUAL Q5M PRN 11/24/14 Gabapentin [Neurontin] 100 mg PO BID 07/02/15 Ergocalciferol [Vitamin D] 50,000 units PO SA 02/16/16 Isosorbide Mononitrate [Isosorbide Mononitrate ER] 30 mg PO DAILY 02/16/16 Niacinamide [Niacin] 500 mg PO BID 02/16/16 Furosemide [Lasix] 40 mg PO DAILY 05/06/16 Montelukast Sodium [Singulair] 10 mg PO QHS 05/06/16 Spironolactone 25 mg PO DAILY 06/10/16 Ondansetron [Zofran Odt] 8 mg PO Q6H PRN PRN 03/31/17 Insulin Glargine,Hum.rec.anlog [Basaglar Kwikpen U-100] 52 unit SQ QHS 08/20/17 Insulin Aspart [Novolog Flexpen] 20 units SC TIDAC 10/08/17 Losartan Potassium [Cozaar] 100 mg PO DAILY 10/08/17 Amlodipine [Norvasc] 5 mg PO DAILY #30 tab 10/11/17 The following prescriptions were given: Amlodipine [Norvasc] 5 mg PO DAILY #30 tab Primary Care Physician: Kim Field MD [Primary Care Provider] - Please follow up with your Primary Care Physician in: 1 Week Please Follow Up With: Wound Clinic When: As scheduled. Please Follow Up With: [facility] When: Call Thursday to establish as patient for CHF and moderate aortic stenosis Proposed Discharge Date: 10/11/17
--- NOTE | 2017-10-11 11:20 | PCM.DC.SUM ---
Discharge Date and Diagnosis Date of Admission: 10/08/17 Date of Discharge: 10/11/17 - Primary Discharge Diagnosis Active and Suspected Problems 1. Acute on chronic hypoxic respiratory failure secondary to acute on chronic diastolic CHF 2. Bilateral lower extremity lymphedema with severe maceration - Secondary Discharge Diagnosis Chronic Problems Venous insufficiency of both lower extremities (Chronic) Other specified peripheral vascular diseases (Chronic) Ulcer of left lower extremity with fat layer exposed (Chronic) Ulcer of right lower extremity with fat layer exposed (Chronic) Delayed wound healing (Chronic) Noncompliance with treatment regimen (Chronic) 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) Diabetes mellitus type 2 in obese (Chronic) Aortic stenosis, mild (Chronic) Pulmonary arterial hypertension (Chronic) Pulmonary nodules (Chronic) Cholelithiasis (Chronic) Tricuspid regurgitation (Chronic) History of esophageal reflux (Chronic) History of hyperlipidemia (Chronic) History of hypertension (Chronic) S/P CABG (coronary artery bypass graft) (Chronic) Obesity (BMI 30.0-34.9) (Chronic) Stasis dermatitis of both legs (Chronic) Lymphedema of both lower extremities (Chronic) Heart failure with preserved ejection fraction (Chronic) 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 Electronically Signed: Abelino Peoples MD at 11:49 EDT , Service support , Consultations 10/08/17 14:50 Consult: Onc/Wound/rib puller Routine Comment: Operations: None Procedures: 2-D Echocardiogram Summary of Care Provided: Patient is a 66-year-old female admitted 10/08/17 due to shortness of breath. She has a past medical history of CAD status post CABG in May 2008, CHF, chronic hypoxic respiratory failure requiring supplemental oxygen at night, bilateral lower extremity lymphedema, type 2 diabetes mellitus, hyperlipidemia, hypertension, chronic kidney disease stage III, GERD, obesity. 1. Acute on chronic hypoxic respiratory failure secondary to acute on chronic diastolic CHF-echocardiogram March 2016 showed an EF of 65%, pulmonary artery systolic pressure 59 mmHg, moderate pulmonary hypertension, mild aortic stenosis. Repeat echocardiogram showed an EF of 55-60%, pulmonary artery systolic pressure 62 mmHg, moderate aortic stenosis with mean aortic valve gradient 23 mmHg. Chest x-ray on admission showed congestion and pulmonary edema. Patient received IV Lasix and will be discharged on home Lasix regimen. Continue metoprolol, losartan. Troponin negative. She will continue home supplemental oxygen to maintain O2 at or above 90%. Recommend sleep study to be ordered by primary care physician due to pulmonary hypertension. Patient has not followed with cardiology in the past. Recommend establishing with [facility] given moderate aortic stenosis as well as recurrent admissions for acute diastolic CHF. 2. CAD-status post CABG in May 2008. Continue aspirin, statin, metoprolol, losartan, Imdur. 3. Bilateral lower extremity lymphedema-bilateral lower extremities severely macerated. Continue dressing changes with Aquacel Ag, cover with dry dressings and wrapped with Kerlix. Patient had recent lower extremity arterial study 09/23/2017 which showed normal arterial perfusion bilaterally. Patient to receive home health at discharge to help with dressing changes. She will also continue outpatient follow-up with wound center. 4. Type 2 diabetes mellitus-Hemoglobin A1c 6.1%. Continue home insulin regimen. 5. Hyperlipidemia-continue statin. 6. Hypertension-amlodipine 5 mg daily added due to elevated blood pressure. 7. Chronic kidney disease stage III-creatinine at baseline. 8. GERD-continue PPI. 9. Obesity-encouraged diet and lifestyle modifications. General: Alert, Oriented x3, Cooperative, No apparent distress HEENT: Atraumatic, PERRLA, EOMI, Normocephalic Oral: Dry Mucosa Neck: Supple, No JVD, Negative Carotid Bruits Lungs: Diminished, clear Cardiovascular: Regular rate, Regular Rhythm, Normal S1, Normal S2, No murmurs Abdomen: Bowel Sounds Present, Soft, Non Tender, Non-Distended, Obese Extremities: - - Bilateral lower extremity lymphedema with severe maceration. Musculoskeletal: No Tenderness to Palpation of Joints or Extremities Neurological: Cranial nerves II-XII grossly intact, Neuro grossly intact Psych/Mental Status: Normal Affect, Appropriate Patient seen and examined prior to discharge. Physical assessment as noted above. Patient stable for discharge home with home health with the recommendations as noted above. This patient was seen by MICHAELA Ohara under the supervision of Dr. Echeverria. Discharge Diet: Low fat/ Low Cholesterol Discharge Activity: Return to Normal Activity Call your doctor if you observe: Shortness of breath, Dizziness, Fainting spells, Chest pain, Increased palpitations (irregular heartbeat) Home Medications: Medications to take at Discharge Aspirin [Aspirin, Baby] 81 mg PO DAILY@0810/20/14 Ferrous Gluconate 325 mg PO DAILY@0810/21/14 Metoprolol Tartrate [Lopressor (beta apryl)] 100 mg PO BID 10/21/14 Pantoprazole Sodium [Protonix] 40 mg PO BID 10/21/14 Rosuvastatin Calcium [Crestor] 2.5 mg PO QHS 10/21/14 Nitroglycerin [Nitrostat] 0.4 mg SUBLINGUAL Q5M PRN 11/24/14 Gabapentin [Neurontin] 100 mg PO BID 07/02/15 Ergocalciferol [Vitamin D] 50,000 units PO SA 02/16/16 Isosorbide Mononitrate [Isosorbide Mononitrate ER] 30 mg PO DAILY 02/16/16 Niacinamide [Niacin] 500 mg PO BID 02/16/16 Furosemide [Lasix] 40 mg PO DAILY 05/06/16 Montelukast Sodium [Singulair] 10 mg PO QHS 05/06/16 Spironolactone 25 mg PO DAILY 06/10/16 Ondansetron [Zofran Odt] 8 mg PO Q6H PRN PRN 03/31/17 Insulin Glargine,Hum.rec.anlog [Basaglar Kwikpen U-100] 52 unit SQ QHS 08/20/17 Insulin Aspart [Novolog Flexpen] 20 units SC TIDAC 10/08/17 Losartan Potassium [Cozaar] 100 mg PO DAILY 10/08/17 Amlodipine [Norvasc] 5 mg PO DAILY #30 tab 10/11/17 Following Prescrptions Were Given to Patient: Amlodipine [Norvasc] 5 mg PO DAILY #30 tab Primary Care Physician: Kim Field MD [Primary Care Provider] - Please follow up with your Primary Care Physician in: 1 Week Please Follow Up With: Wound Clinic When: As scheduled. Please Follow Up With: [facility] When: Call Thursday to establish as patient for CHF and moderate aortic stenosis. Disposition: Home with Home Health Minutes spent on discharge:: 35 Patient Condition:: Stable Medical Necessity - Tobacco Use Smoking Status: Former smoker Tobacco Use: Cigarettes Meaningful Use Info Meaningful Use Diagnoses (Choose all that apply): CHF - CHF CARLOS A/ARB ordered at discharge?: Yes Documented LVEF (%): 55
--- NOTE | 2017-10-11 11:27 | DS.PCM_ITS ---
Addendum entered and electronically signed by MICHAELA Ohara 10/11/17 12:39: Code Visit Patient has home oxygen available. However she does not have portable oxygen tank. She is ambulatory at home and in the community and will require oxygen with portability for supplemental oxygen. Recommend 3 L continuous nasal cannula. Original Note: Discharge Date and Diagnosis Date of Admission: 10/08/17 Date of Discharge: 10/11/17 - Primary Discharge Diagnosis Active and Suspected Problems 1. Acute on chronic hypoxic respiratory failure secondary to acute on chronic diastolic CHF 2. Bilateral lower extremity lymphedema with severe maceration - Secondary Discharge Diagnosis Chronic Problems Venous insufficiency of both lower extremities (Chronic) Other specified peripheral vascular diseases (Chronic) Ulcer of left lower extremity with fat layer exposed (Chronic) Ulcer of right lower extremity with fat layer exposed (Chronic) Delayed wound healing (Chronic) Noncompliance with treatment regimen (Chronic) 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) Diabetes mellitus type 2 in obese (Chronic) Aortic stenosis, mild (Chronic) Pulmonary arterial hypertension (Chronic) Pulmonary nodules (Chronic) Cholelithiasis (Chronic) Tricuspid regurgitation (Chronic) History of esophageal reflux (Chronic) History of hyperlipidemia (Chronic) History of hypertension (Chronic) S/P CABG (coronary artery bypass graft) (Chronic) Obesity (BMI 30.0-34.9) (Chronic) Stasis dermatitis of both legs (Chronic) Lymphedema of both lower extremities (Chronic) Heart failure with preserved ejection fraction (Chronic) 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 Electronically Signed: Abelino Peoples MD at 11:49 EDT , Service support , Consultations 10/08/17 14:50 Consult: Onc/Wound/cyber systems operations specialist Routine Comment: Operations: None Procedures: 2-D Echocardiogram Summary of Care Provided: Patient is a 66-year-old female admitted 10/08/17 due to shortness of breath. She has a past medical history of CAD status post CABG in May 2008, CHF, chronic hypoxic respiratory failure requiring supplemental oxygen at night, bilateral lower extremity lymphedema, type 2 diabetes mellitus, hyperlipidemia, hypertension, chronic kidney disease stage III, GERD, obesity. 1. Acute on chronic hypoxic respiratory failure secondary to acute on chronic diastolic CHF-echocardiogram March 2016 showed an EF of 65%, pulmonary artery systolic pressure 59 mmHg, moderate pulmonary hypertension, mild aortic stenosis. Repeat echocardiogram showed an EF of 55-60%, pulmonary artery systolic pressure 62 mmHg, moderate aortic stenosis with mean aortic valve gradient 23 mmHg. Chest x-ray on admission showed congestion and pulmonary edema. Patient received IV Lasix and will be discharged on home Lasix regimen. Continue metoprolol, losartan. Troponin negative. She will continue home supplemental oxygen to maintain O2 at or above 90%. Recommend sleep study to be ordered by primary care physician due to pulmonary hypertension. Patient has not followed with cardiology in the past. Recommend establishing with [facility] given moderate aortic stenosis as well as recurrent admissions for acute diastolic CHF. 2. CAD-status post CABG in May 2008. Continue aspirin, statin, metoprolol , losartan, Imdur. 3. Bilateral lower extremity lymphedema-bilateral lower extremities severely macerated. Continue dressing changes with Aquacel Ag, cover with dry dressings and wrapped with Kerlix. Patient had recent lower extremity arterial study 09/23 which showed normal arterial perfusion bilaterally. Patient to receive home health at discharge to help with dressing changes. She will also continue outpatient follow-up with wound center. 4. Type 2 diabetes mellitus-Hemoglobin A1c 6.1%. Continue home insulin regimen. 5. Hyperlipidemia-continue statin. 6. Hypertension-amlodipine 5 mg daily added due to elevated blood pressure. 7. Chronic kidney disease stage III-creatinine at baseline. 8. GERD-continue PPI. 9. Obesity-encouraged diet and lifestyle modifications. General: Alert, Oriented x3, Cooperative, No apparent distress HEENT: Atraumatic, PERRLA, EOMI, Normocephalic Oral: Dry Mucosa Neck: Supple, No JVD, Negative Carotid Bruits Lungs: Diminished, clear Cardiovascular: Regular rate, Regular Rhythm, Normal S1, Normal S2, No murmurs Abdomen: Bowel Sounds Present, Soft, Non Tender, Non-Distended, Obese Extremities: - - Bilateral lower extremity lymphedema with severe maceration. Musculoskeletal: No Tenderness to Palpation of Joints or Extremities Neurological: Cranial nerves II-XII grossly intact, Neuro grossly intact Psych/Mental Status: Normal Affect, Appropriate Patient seen and examined prior to discharge. Physical assessment as noted above. Patient stable for discharge home with home health with the recommendations as noted above. This patient was seen by MICHAELA Ohara under the supervision of Dr. Echeverria. Discharge Diet: Low fat/ Low Cholesterol Discharge Activity: Return to Normal Activity Call your doctor if you observe: Shortness of breath, Dizziness, Fainting spells , Chest pain, Increased palpitations (irregular heartbeat) Home Medications: Medications to take at Discharge Aspirin [Aspirin, Baby] 81 mg PO DAILY@0810/20/14 Ferrous Gluconate 325 mg PO DAILY@79910/21/14 Metoprolol Tartrate [Lopressor (beta apryl)] 100 mg PO BID 10/21/14 Pantoprazole Sodium [Protonix] 40 mg PO BID 10/21/14 Rosuvastatin Calcium [Crestor] 2.5 mg PO QHS 10/21/14 Nitroglycerin [Nitrostat] 0.4 mg SUBLINGUAL Q5M PRN 11/24/14 Gabapentin [Neurontin] 100 mg PO BID 07/02/15 Ergocalciferol [Vitamin D] 50,000 units PO SA 02/16/16 Isosorbide Mononitrate [Isosorbide Mononitrate ER] 30 mg PO DAILY 02/16/16 Niacinamide [Niacin] 500 mg PO BID 02/16/16 Furosemide [Lasix] 40 mg PO DAILY 05/06/16 Montelukast Sodium [Singulair] 10 mg PO QHS 05/06/16 Spironolactone 25 mg PO DAILY 06/10/16 Ondansetron [Zofran Odt] 8 mg PO Q6H PRN PRN 03/31/17 Insulin Glargine,Hum.rec.anlog [Basaglar Kwikpen U-100] 52 unit SQ QHS 08/20/17 Insulin Aspart [Novolog Flexpen] 20 units SC TIDAC 10/08/17 Losartan Potassium [Cozaar] 100 mg PO DAILY 10/08/17 Amlodipine [Norvasc] 5 mg PO DAILY #30 tab 10/11/17 Following Prescrptions Were Given to Patient: Amlodipine [Norvasc] 5 mg PO DAILY #30 tab Primary Care Physician: Kim Field MD [Primary Care Provider] - Please follow up with your Primary Care Physician in: 1 Week Please Follow Up With: Wound Clinic When: As scheduled. Please Follow Up With: [facility] When: Call Thursday to establish as patient for CHF and moderate aortic stenosis. Disposition: Home with Home Health Minutes spent on discharge:: 35 Patient Condition:: Stable Medical Necessity - Tobacco Use Smoking Status: Former smoker Tobacco Use: Cigarettes Meaningful Use Info Meaningful Use Diagnoses (Choose all that apply): CHF - CHF CARLOS A/ARB ordered at discharge?: Yes Documented LVEF (%): 55
[2017-10-11 11:35] LABS: Bedside Glucose 214 mg/dL (70-110)
== END 2017-10-11 14:07 | disposition home health service (06) | DRG 127 ==
LOC: ED 13:13 → PCU 13:41
PROVIDERS: Internal Medicine; Nurse Practitioner Family; Admitting Provider Internal Medicine; Emergency Provider Emergency Medicine; Family Provider Internal Medicine; PCP Internal Medicine; Visit Provider Internal Medicine
DX: I13.0 Hypertensive heart and chronic kidney disease with heart failure and stage 1 through stage 4 chronic kidney disease, or unspecified chronic kidney disease (principal); I50.33 Acute on chronic diastolic (congestive) heart failure; N18.3 Chronic kidney disease, stage 3 (moderate); J96.21 Acute and chronic respiratory failure with hypoxia; I35.0 Nonrheumatic aortic (valve) stenosis; K62.5 Hemorrhage of anus and rectum; I36.1 Nonrheumatic tricuspid (valve) insufficiency; L97.912 Non-pressure chronic ulcer of unspecified part of right lower leg with fat layer exposed; L97.922 Non-pressure chronic ulcer of unspecified part of left lower leg with fat layer exposed; L97.511 Non-pressure chronic ulcer of other part of right foot limited to breakdown of skin; L97.521 Non-pressure chronic ulcer of other part of left foot limited to breakdown of skin; D69.6 Thrombocytopenia, unspecified; E11.22 Type 2 diabetes mellitus with diabetic chronic kidney disease; E78.00 Pure hypercholesterolemia, unspecified; E78.5 Hyperlipidemia, unspecified; K21.9 Gastro-esophageal reflux disease without esophagitis; E66.9 Obesity, unspecified; Z68.35 Body mass index [BMI] 35.0-35.9, adult; I27.21 Secondary pulmonary arterial hypertension; E11.51 Type 2 diabetes mellitus with diabetic peripheral angiopathy without gangrene; E11.59 Type 2 diabetes mellitus with other circulatory complications; Z66 Do not resuscitate; M20.62 Acquired deformities of toe(s), unspecified, left foot; M20.61 Acquired deformities of toe(s), unspecified, right foot; R07.9 Chest pain, unspecified; R91.8 Other nonspecific abnormal finding of lung field; K80.20 Calculus of gallbladder without cholecystitis without obstruction; I83.209 Varicose veins of unspecified lower extremity with both ulcer of unspecified site and inflammation; I83.215 Varicose veins of right lower extremity with both ulcer other part of foot and inflammation; I83.225 Varicose veins of left lower extremity with both ulcer other part of foot and inflammation; E11.42 Type 2 diabetes mellitus with diabetic polyneuropathy; Z99.81 Dependence on supplemental oxygen; Z79.4 Long term (current) use of insulin; Z91.19 Patient's noncompliance with other medical treatment and regimen; Z79.82 Long term (current) use of aspirin; Z79.01 Long term (current) use of anticoagulants; Z79.899 Other long term (current) drug therapy; Z87.891 Personal history of nicotine dependence
CPT/HCPCS: 36415; 36600; 71045; 80048; 80061; 82803; 82962; 83036; 83605; 83735; 83880; 84443; 84484; 85025; 85027; 87804; 93005; 93306; 94002; 94640; 97110; 97163; 97166; 99285; A4216; J1940

== ENCOUNTER 2017-10-12 10:52 | Inpatient (IN) | payer MEDICAID, SELFPAY ==
[2017-10-12] VITALS (15 sets, daily range): BP systolic 116–153; BP diastolic 50–81; PULSE 78–99; RESP 16–43; TEMP 36.7–37.2; O2SAT 67–97; BMI 34.9; BMI 35.0; BMI 34.0
--- NOTE | 2017-10-12 11:04 | NURSING ---
NO LW OR POA
--- NOTE | 2017-10-12 11:59 | EKG12_ITS ---
Test Reason : SOB Blood Pressure : / mmHG Vent. Rate : 089 BPM Atrial Rate : 089 BPM P-R Int : 126 ms QRS Dur : 080 ms QT Int : 356 ms P-R-T Axes : 037 034 192 degrees QTc Int : 433 ms Sinus rhythm with Premature atrial complexes Marked ST abnormality, possible inferior subendocardial injury Abnormal ECG Confirmed by DILLON TREJO ([id number]), proposal editor PROMISE DICKINSON ([id number]) on 10/15/2017 2:44:21 PM Referred By: ADAMS/ARLET Confirmed By:DILLON TREJO
--- NOTE | 2017-10-12 12:04 | ED.VISSUMM ---
- ER Visit Summary Date of Service: 10/12/17 Chief Complaint: Shortness of breath History of Present Illness: The patient is a 66 F history of CAD, RI, CHF, insulin-dependent diabetes and hypertension. Patient was recently hospitalized for CHF. She is reportedly supposed to be on home O2. Michael was called her house today for shortness of breath. When he arrived her O2 tank was empty and her pulse ox is 47%. She also states that she has a dry cough with nausea and vomiting. Physical Examination: Well-appearing older female. Vital signs she is only 67% on 6 L at however improving. I am sure is 98?. She does not look septic or toxic. H EENT exam unremarkable. Neck nontender no JVD. Lungs clear to auscultation bilaterally. Heart regular rate and rhythm with a former systolic ejection murmur. Abdomen soft nontender. Normal bowel sounds no peritoneal signs. Moving all 4 extremities. Chronic 1+ pitting edema both lower extremities. With [place] wraps on. Neurologically she is awake and alert without focal motor deficits. Test Results: X-ray shows borderline cardiomegaly with bilateral pleural effusions and CHF. Worsen when she was discharged. EKG sinus rhythm rate [address] depression in leads V4 5 and 6 which is changed from 10/10/2017. CBC shows white count 9. H&H 11.6 and 37 which is her baseline anemia. Electrolytes are unremarkable BUN 36 creatinine 1.2. Troponin is elevated 0.19 her prior troponins were all normal her BNP is slightly elevated 380. Consistent with her CHF. Emergency Department Course and Treatment: Older female with dyspnea with recent hospitalization. Patient be treated with IV Lasix. Treatment Plan: Patient be treated with IV Lasix she is on oxygen ER. On repeat exam she is doing well at 1555. Disposition: Admission Impression: Acute hypoxia secondary to acute exacerbation of CHF and pleural effusions. Abnormal troponin of uncertain etiology with EKG changes. This note was generated with [employer] dictation software. It may contain incorrect words, spelling, and punctuation that were not noted in review of the chart prior to signing ED Disposition - Plan for ED Patient: Chief Complaint: Shortness of Breath Referrals: Kim Field MD [Primary Care Provider] -
--- NOTE | 2017-10-12 12:07 | RAD_ITS ---
STUDY: X-RAY CHEST REASON FOR EXAM: Female, 66 years old. Chest pain and shortness of breath. TECHNIQUE: Single AP portable view of the chest. COMPARISON: Comparison is made with prior study dated October 08, 2017. FINDINGS: EKG electrodes are seen. Since prior study, there is worsening of the CHF with small bilateral pleural effusions and bibasilar atelectasis. Sternal cerclage wires and vascular clips are present from a prior sternotomy and coronary artery bypass graft procedure (CABG). Mild cardio mainly. Normal mediastinum and kel. Normal visualized pulmonary arteries. There is atherosclerotic calcification of the aortic arch with tortuosity. There are degenerative changes of the visualized thoracic spine. Normal visualized ribs, clavicles, and shoulders. There is no demonstrated abnormality of the visualized soft tissue structures of the upper abdomen. RAD/Chest 1 View (Portable) IMPRESSION: Since prior study, there has been progression of the CHF with bibasilar atelectasis and small bilateral effusions. Electronically Signed: Rik Morfin MD at 12:32 EDT Tel [phone], Service support ,
--- NOTE | 2017-10-12 12:07 | ED.DCSUM_ITS ---
- ER Visit Summary Date of Service: 10/12/17 Chief Complaint: Shortness of breath History of Present Illness: The patient is a 66 F history of CAD, MA, CHF, insulin-dependent diabetes and hypertension. Patient was recently hospitalized for CHF. She is reportedly supposed to be on home O2. Michael was called her house today for shortness of breath. When he arrived her O2 tank was empty and her pulse ox is 47%. She also states that she has a dry cough with nausea and vomiting. Physical Examination: Well-appearing older female. Vital signs she is only 67% on 6 L at however improving. I am sure is 98?. She does not look septic or toxic. H EENT exam unremarkable. Neck nontender no JVD. Lungs clear to auscultation bilaterally. Heart regular rate and rhythm with a former systolic ejection murmur. Abdomen soft nontender. Normal bowel sounds no peritoneal signs. Moving all 4 extremities. Chronic 1+ pitting edema both lower extremities. With [place] wraps on. Neurologically she is awake and alert without focal motor deficits. Test Results: X-ray shows borderline cardiomegaly with bilateral pleural effusions and CHF. Worsen when she was discharged. EKG sinus rhythm rate [address] depression in leads V4 5 and 6 which is changed from 2017. CBC shows white count 9. H&H 11.6 and 37 which is her baseline anemia. Electrolytes are unremarkable BUN 36 creatinine 1.2. Troponin is elevated 0.19 her prior troponins were all normal her BNP is slightly elevated 380. Consistent with her CHF. Emergency Department Course and Treatment: Older female with dyspnea with recent hospitalization. Patient be treated with IV Lasix. Treatment Plan: Patient be treated with IV Lasix she is on oxygen ER. On repeat exam she is doing well at 1555. Disposition: Admission Impression: Acute hypoxia secondary to acute exacerbation of CHF and pleural effusions. Abnormal troponin of uncertain etiology with EKG changes. This note was generated with [employer] dictation software. It may contain incorrect words, spelling, and punctuation that were not noted in review of the chart prior to signing ED Disposition - Plan for ED Patient: Chief Complaint: Shortness of Breath Referrals: Kim Field MD [Primary Care Provider] -
[2017-10-12 12:12] LABS: Absolute Lymphocyte Count 0.39 X10^3/ul (0.83-4.51); Absolute Neutrophil Count 8.8 X10^3/uL (2.0-7.7); Basophil# 0.01 X10^3/uL; Basophil% 0.1 % (0-1); Eosinophil# 0.08 X10^3/uL; Eosinophils% 0.8 % (0-5); Hematocrit 37.2 % (37-47); Hemoglobin 11.6 g/dl (12.0-15.0); Lymphocyte # 0.39 X10^3/ul (4.0); Mean Corp Hgb Conc 31.2 g/gl (32-36); Mean Corpuscular Hgb 29.7 pg (27.0-32.0); Mean Corpuscular Volume 95.1 fL (81-99); Mean Platelet Vol. 10.4 fl (6.2-12.0); Monocyte# 0.44 X10^3/uL; Monocyte% 4.5 % (0-10); Neutrophil # 8.84 X10^3/uL (2.7-7.7); Neutrophil % 90.2 % (47-70); Platelet Count 144 K/mm3 (150-450); RBC Distribution Width CV 16.8 % (11.6-14.6); RBC Distribution Width SD 56.7 fl (35.1-43.9); Red Blood Count 3.91 M/mm3 (4.2-5.4); White Blood Count 9.8 K/mm3 (4.4-11.0)
[2017-10-12 12:14] LABS: Differential Indicated SCAN CRITERIA MET; POSITIVE COUNT NO; POSITIVE DIFFERENTIAL YES; POSITIVE MORPHOLOGY NO
[2017-10-12 12:32] LABS: Anion Gap 5 (5-15); BUN 36 mg/dL (7-18); BUN/Creat Ratio 28.1 RATIO (10-20); Calcium,Total 8.7 mg/dL (8.5-10.1); Chloride 109 mmol/L (98-107); Creatinine, Serum 1.28 mg/dL (0.55-1.02); EST Glomerular Filtration Rate 44 mL/min (>60); Est Glom Filt Rate - Afr Amer 54 mL/min (>60); Estimated Creatinine Clearance 43.61 ml/min; Glucose 105 mg/dL (74-106); Potassium 4.3 mmol/L (3.5-5.1); Sodium Level 146 mmol/L (136-145)
[2017-10-12 12:42] LABS: BNP,B-Type NATRIURETIC PEPTIDE 380.9 pg/mL (0-100)
[2017-10-12] MEDS: Aspirin 81 MG TAB.CHEW 324 MG PO (12:58)
--- NOTE | 2017-10-12 13:04 | CM.ED ---
CM consulted to evaluate home oxygen needs. Per EMS report, patient was hypoxic and connected to an empty oxygen tank. Patient states that she didn't realize the tank was low. Patient states she has approximately 5 replacement tanks at her house and that she is aware she needs to call [facility] when tanks are low. Call placed to [facility]. Patient is ordered 3 L/min oxygen for home use. An order for a portable tank was placed by Marcia Horton, upon discharge from previous admission, yesterday. Should patient return to home from ED, [facility] will bring portable oxygen tank to ED for the patient.
--- NOTE | 2017-10-12 16:24 | PCM.HP.STD ---
Problem List (1) Venous insufficiency of both lower extremities Status: Chronic (2) Type 2 diabetes mellitus with diabetic peripheral angiopathy without gangrene Status: Acute Qualifiers: (3) Lymphedema in adult patient Status: Acute (4) Acute CHF (congestive heart failure) Status: Acute Qualifiers: (5) Acute respiratory failure with hypoxia Status: Acute History of Present Illness Date of Admission: 10/12/17 Chief Complaint: Worsening shortness of breath, chest discomfort The patient is a 66 year old F multiple comorbidities significant for CAD status post CABG, acute on chronic CHF, hypertension, hyperlipidemia, bilateral chronic lymphedema, recently admitted on 0 09/27/2017 and discharged on 10/11/2017 with acute on chronic hypoxic respiratory failure and managed as acute on chronic diastolic CHF. Patient was discharged home with home oxygen. She states that when she got her oxygen tank, it did not have any oxygen in it and she was having increased work of breathing. She called the squad, the squad found her SPO2 to be in the 40s and her oxygen tank was empty. Vitals in the ED stable, patient was saturating well on 6 L of oxygen. Chest x-ray showed worsening CHF pattern. Past Medical History Past Medical History (Chronic Problems): Chronic Problems Venous insufficiency of both lower extremities (Chronic) Other specified peripheral vascular diseases (Chronic) Ulcer of left lower extremity with fat layer exposed (Chronic) Ulcer of right lower extremity with fat layer exposed (Chronic) Delayed wound healing (Chronic) Noncompliance with treatment regimen (Chronic) 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) Diabetes mellitus type 2 in obese (Chronic) Aortic stenosis, mild (Chronic) Pulmonary arterial hypertension (Chronic) Pulmonary nodules (Chronic) Cholelithiasis (Chronic) Tricuspid regurgitation (Chronic) History of esophageal reflux (Chronic) History of hyperlipidemia (Chronic) History of hypertension (Chronic) S/P CABG (coronary artery bypass graft) (Chronic) Obesity (BMI 30.0-34.9) (Chronic) Stasis dermatitis of both legs (Chronic) Lymphedema of both lower extremities (Chronic) Heart failure with preserved ejection fraction (Chronic) 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) Thrombocytopenia (Chronic) Neuropathy, peripheral (Chronic) Allergies Penicillins Allergy (Verified 10/12/17 11:00) Rash rosiglitazone maleate [From Avandia] Allergy (Verified 10/12/17 11:00) Swelling & diarrhea simvastatin [From Zocor] Allergy (Verified 10/12/17 11:00) Muscle weakness atorvastatin calcium [From Lipitor] Adverse Reaction (Verified 10/12/17 11:00) Muscle weakness esomeprazole magnesium [From Nexium] Adverse Reaction (Verified 10/12/17 11:00) Diarrhea lansoprazole [From Prevacid] Adverse Reaction (Verified 10/12/17 11:00) Diarrhea Sulfa (Sulfonamide Antibiotics) Adverse Reaction (Verified 10/12/17 11:00) Nausea/Vom/Diarrhea from PCP office records Home Medications: Ambulatory Orders Medication Instructions Recorded Aspirin [Aspirin, Baby] 81 mg PO DAILY@0800 10/20/14 Ferrous Gluconate 325 mg PO DAILY@0800 10/21/14 Metoprolol Tartrate [Lopressor 100 mg PO BID 10/21/14 (beta apryl)] Pantoprazole Sodium [Protonix] 40 mg PO BID 10/21/14 Rosuvastatin Calcium [Crestor] 2.5 mg PO QHS 10/21/14 Nitroglycerin [Nitrostat] 0.4 mg SUBLINGUAL Q5M PRN 11/24/14 Gabapentin [Neurontin] 100 mg PO BID 07/02/15 Ergocalciferol [Vitamin D] 50,000 units PO SA 02/16/16 Isosorbide Mononitrate [Isosorbide 30 mg PO DAILY 02/16/16 Mononitrate ER] Niacinamide [Niacin] 500 mg PO BID 02/16/16 Furosemide [Lasix] 40 mg PO DAILY 05/06/16 Montelukast Sodium [Singulair] 10 mg PO QHS 05/06/16 Spironolactone 25 mg PO DAILY 06/10/16 Ondansetron [Zofran Odt] 8 mg PO Q6H PRN PRN 03/31/17 Insulin Glargine,Hum.rec.anlog 52 unit SQ QHS 08/20/17 [Basaglar Kwikpen U-100] Insulin Aspart [Novolog Flexpen] 20 units SC TIDAC 10/08/17 Losartan Potassium [Cozaar] 100 mg PO DAILY 10/08/17 Amlodipine [Norvasc] 5 mg PO DAILY 10/12/17 Sucralfate [Carafate] 1 gm PO 4X/DAY 10/12/17 Surgical History: coronary bypass surgery, - - Right femoral bypass surgery, cochlear impants Smoking Status: Former smoker - *Family History Sibling History Items: Heart Disease Maternal History Items: No pertinent history Paternal History Items: No pertinent history Review of Systems Constitutional: Denies: Anorexia, Chills, Fever, Malaise, Weakness, Weight Change Eyes: Denies: Blurred vision, Cataracts, Conjunctivae Inflammation, Double vision HEENT: Denies: Difficulty Swallowing, Head Aches, Hearing Changes, Nasal bleeding, Sinus Congestion, Sinus Drainage Cardiovascular: Denies: Chest Pain, Claudication, Orthopnea, Palpitations, Paroxysmal Noc. Dyspnea, Syncope Respiratory: Reports: Cough, Shortness of Breath, Shortness of breath at rest, Shortness of breath upon exertion. Denies: Sputum production Gastrointestinal: Denies: Abdominal Pain, Constipation, Hematemesis, Hematochezia, Nausea, Vomiting Genitourinary: Denies: Dysuria Gynecological: Denies: Breast symptoms, Excessively long or heavy periods Musculoskeletal: Denies: Joint Pain, Joint stiffness, Joint swelling, Joint Tenderness Skin: Denies: Dryness, Pruritis, Rash, Wounds Neurological: Denies: Numbness, Tingling, Focal weakness Psychiatric: Denies: Anxiety, Depression, Homicidal Ideations, Suicidal Ideations Hematologic/ Lymphatic: Denies: Easy Bruising, Easy Bleeding VTE Information - Inpt Only VTE Present on Admission: No VTE Pharm Prophylaxis ordered?: Yes - Physical Exam General: Alert, Oriented x3, Cooperative, No apparent distress HEENT: Atraumatic, PERRLA, EOMI, Normocephalic Oral: Dry Mucosa - On 5 L of oxygen, appears comfortable, not pale, looks slightly unkempt Neck: Supple, No JVD, Negative Carotid Bruits Lungs: Normal air movement, Diminished, - - Few middle zone coarse crackles Cardiovascular: Regular rate, Regular Rhythm, Normal S1, Normal S2, Murmur - 4/6 holosystolic and ejection systolic murmur Abdomen: Bowel Sounds Present, Soft, Non Tender, Non-Distended, No Hepato-splenomegaly Extremities: No edema Skin: No rashes, No breakdown Musculoskeletal: No Tenderness to Palpation of Joints or Extremities Lymphatic: No Cervical, Supraclavicular, or Inguinal Adenopathy Neurological: Cranial nerves II-XII grossly intact Psych/Mental Status: Normal Affect, Appropriate Vital Signs Temp Pulse Resp BP Pulse Ox 98.4 F 82 25 H 116/68 97 10/12/17 10:53 10/12/17 15:47 10/12/17 15:47 10/12/17 15:47 10/12/17 14:53 Oxygen Flow Rate (L/min) 6 Oxygen Delivery Method Nasal Cannula Weight: 104.326 kg Body Mass Index (BMI) 34.9 Finger Stick Blood Glucose 262 Laboratory Tests Past 24 Hrs 10/12/17 10/12/17 10/12/17 11:20 11:20 11:20 WBC 9.8 RBC 3.91 L Hgb 11.6 L Hct 37.2 MCV 95.1 MCH 29.7 MCHC 31.2 L RDW 16.8 H RDW Differential 56.7 H Plt Count 144 L MPV 10.4 Immature Gran % (Auto) 0.400 Neut % (Auto) 90.2 H Lymph % (Auto) 4.0 L [place] % (Auto) 4.5 Eos % (Auto) 0.8 Baso % (Auto) 0.1 Absolute Neuts (auto) 8.8 H Absolute Lymphs (auto) 0.39 L Total Counted Not Reportable Differential Comment Sodium 146 H Potassium 4.3 Chloride 109 H Carbon Dioxide 32.0 Anion Gap 5 BUN 36 H Creatinine 1.28 H Estim Creat Clear Calc 43.61 Est GFR (MDRD) Af Amer 54 L Est GFR (MDRD) Non-Af 44 L BUN/Creatinine Ratio 28.1 H Glucose 105 Calcium 8.7 Troponin I 0.19 H B-Natriuretic Peptide 380.9 H Assessment/Plan 66-year-old female with multiple comorbidities, recently discharged on 10/11/17 with acute hypoxic respiratory failure and bilateral extremity lymphedema from acute on chronic diastolic CHF. 1. Acute on chronic hypoxic respiratory failure secondary to acute on chronic diastolic CHF, and is on 2-3 L of oxygen at baseline, currently on 6 L of oxygen, will continue oxygen therapy and aim for SPO2 more than 92-94%. 2. Acute on chronic diastolic CHF, likely secondary to diet and medication noncompliance, patient is a poor historian, will resume Lasix 40 mg IV twice daily, daily weights, strict I's and O's, monitor BMPs 3. Elevated troponins likely secondary to an STEMI/demand ischemia, septal changes on EKG in V5 and V6 with T-wave inversions, will repeat EKG in the a.m., will trend troponins 4. CAD-status post CABG, on aspirin, statin, metoprolol, losartan, Imdur. 5. Bilateral lower extremity lymphedema chronic venous stasis ulcers, with early skin involvement and no underlining tissue involvement, will continue with previous dressings with Aquacel silver and dry dressings and wrapped with Kerlix. 6.Type 2 diabetes mellitus-Hemoglobin A1c 6.1%, continue home insulin regimen. 7. Hyperlipidemia, on statin. 8. Hypertension, controlled, on home BP regimen. 9. Chronic kidney disease stage III-creatinine at baseline. 10. GERD-continue PPI. 11. Obesity-encouraged diet and lifestyle modifications. Code Visit Inpatient E&M: 42837 Init Hosp L3
--- NOTE | 2017-10-12 16:27 | NURSING ---
125 HYPOXIA, ACUTE ON CHRONIC CHF EXEC PAINTSIL
[2017-10-12] MEDS: Furosemide 100 MG/10 ML Vial 60 MG IV (16:34)
[2017-10-12 18:40] LABS: Bedside Glucose 81 mg/dL (70-110)
[2017-10-12] MEDS: Enoxaparin 100 MG/ML Syringe SC (19:58)
[2017-10-12] MEDS: Sucralfate 1 GM Tablet PO (22:27)
[2017-10-12] MEDS: Pantoprazole Sodium 40 MG Tablet PO (22:27)
[2017-10-12] MEDS: Metoprolol Tartrate 100 MG Tablet PO (22:28)
[2017-10-12] MEDS: Montelukast 10 MG Tablet PO (22:28)
[2017-10-12 22:40] LABS: Bedside Glucose 196 mg/dL (70-110)
[2017-10-13] VITALS (13 sets, daily range): BP systolic 120–151; BP diastolic 61–73; PULSE 58–70; RESP 17–19; TEMP 36.4–36.8; O2SAT 92–97
[2017-10-13 03:55] LABS: Mean Corp Hgb Conc 30.6 g/gl (32-36); Mean Corpuscular Hgb 29.5 pg (27.0-32.0); Mean Corpuscular Volume 96.5 fL (81-99); Mean Platelet Vol. 10.2 fl (6.2-12.0); Platelet Count 128 K/mm3 (150-450); RBC Distribution Width CV 16.6 % (11.6-14.6); RBC Distribution Width SD 55.6 fl (35.1-43.9); Red Blood Count 3.73 M/mm3 (4.2-5.4); White Blood Count 7.4 K/mm3 (4.4-11.0)
[2017-10-13 03:57] LABS: Scan Indicated on CBC? Y/N NO
[2017-10-13 04:39] LABS: Anion Gap 5 (5-15); BUN 39 mg/dL (7-18); BUN/Creat Ratio 25.3 RATIO (10-20); Calcium,Total 7.9 mg/dL (8.5-10.1); Chloride 110 mmol/L (98-107); Creatinine, Serum 1.54 mg/dL (0.55-1.02); EST Glomerular Filtration Rate 36 mL/min (>60); Est Glom Filt Rate - Afr Amer 43 mL/min (>60); Estimated Creatinine Clearance 36.25 ml/min; Glucose 142 mg/dL (74-106); Potassium 4.1 mmol/L (3.5-5.1); Sodium Level 146 mmol/L (136-145)
[2017-10-13 06:51] LABS: Bedside Glucose 139 mg/dL (70-110)
--- NOTE | 2017-10-13 07:23 | CON.PCM_ITS ---
Reason for Consult Date of Consultation: 10/13/17 Reason for Consultation: Abnormal troponins. Chest pain. History of Present Illness: The patient is a 66 year old F with a past medical history significant for hypertension aortic valve disease coronary artery disease status post carotid bypass surgery 2007 with exact targets unknown at this time who has had multiple admissions to the hospital for shortness of breath. She was apparently recently discharged from the hospital on October 11 after she had been hospitalized for the same. She apparently had not been using her home oxygen and got short of breath and called the emergency medical squad. At the time they got there and pulse oximetry was noted to be 47% she was placed on oxygen brought to the emergency room was evaluated was noted to have an elevated natruretic peptide and mildly elevated troponin as well as abnormal EKG. She was placed in the telemetry unit and further cardiac enzymes obtained suggested a non-ST elevation myocardial infarction resulting in cardiology consultation. She did have some chest discomfort described as a heaviness yesterday but has not had any today. Her other past medical history is significant for hyperlipidemia hypertension and diabetes mellitus. She has also had 2 percutaneous interventions in 2008 and 2012 as well as right femoral bypass surgery. A recent echocardiogram that was performed during her recent hospitalization demonstrated overall preserved left ventricular systolic function estimated at 55-60%, and mean aortic valve gradient of 23 mmHg and pulmonary hypertension with estimated pulmonary pressures of 62 mmHg. At this particular time she appears to be fairly stable. [] Past Medical History Allergies/Adverse Reactions: Allergies Penicillins Allergy (Verified 10/12/17 11:00) Rash rosiglitazone maleate [From Avandia] Allergy (Verified 10/12/17 11:00) Swelling & diarrhea simvastatin [From Zocor] Allergy (Verified 10/12/17 11:00) Muscle weakness atorvastatin calcium [From Lipitor] Adverse Reaction (Verified 10/12/17 11:00) Muscle weakness esomeprazole magnesium [From Nexium] Adverse Reaction (Verified 10/12/17 11:00) Diarrhea lansoprazole [From Prevacid] Adverse Reaction (Verified 10/12/17 11:00) Diarrhea Sulfa (Sulfonamide Antibiotics) Adverse Reaction (Verified 10/12/17 11:00) Nausea/Vom/Diarrhea from PCP office records Home Medications: Ambulatory Orders Medication Instructions Recorded Aspirin [Aspirin, Baby] 81 mg PO DAILY@79910/20/14 Ferrous Gluconate 325 mg PO DAILY@0815 Metoprolol Tartrate [Lopressor 100 mg PO BID 10/21/14 (beta apryl)] Pantoprazole Sodium [Protonix] 40 mg PO BID 10/21/14 Rosuvastatin Calcium [Crestor] 2.5 mg PO QHS 10/21/14 Nitroglycerin [Nitrostat] 0.4 mg SUBLINGUAL Q5M PRN 11/24/14 Gabapentin [Neurontin] 100 mg PO BID 07/02/15 Ergocalciferol [Vitamin D] 50,000 units PO SA 02/16/16 Isosorbide Mononitrate [Isosorbide 30 mg PO DAILY 02/16/16 Mononitrate ER] Niacinamide [Niacin] 500 mg PO BID 02/16/16 Furosemide [Lasix] 40 mg PO DAILY 05/06/16 Montelukast Sodium [Singulair] 10 mg PO QHS 05/06/16 Spironolactone 25 mg PO DAILY 06/10/16 Ondansetron [Zofran Odt] 8 mg PO Q6H PRN PRN 03/31/17 Insulin Glargine,Hum.rec.anlog 52 unit SQ QHS 08/20/17 [Basaglar Kwikpen U-100] Insulin Aspart [Novolog Flexpen] 20 units SC TIDAC 10/08/17 Losartan Potassium [Cozaar] 100 mg PO DAILY 10/08/17 Amlodipine [Norvasc] 5 mg PO DAILY 10/12/17 Sucralfate [Carafate] 1 gm PO 4X/DAY 10/12/17 Past Medical History (Chronic Problems): Chronic Problems Venous insufficiency of both lower extremities (Chronic) Other specified peripheral vascular diseases (Chronic) Ulcer of left lower extremity with fat layer exposed (Chronic) Ulcer of right lower extremity with fat layer exposed (Chronic) Delayed wound healing (Chronic) Noncompliance with treatment regimen (Chronic) 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) Diabetes mellitus type 2 in obese (Chronic) Aortic stenosis, mild (Chronic) Pulmonary arterial hypertension (Chronic) Pulmonary nodules (Chronic) Cholelithiasis (Chronic) Tricuspid regurgitation (Chronic) History of esophageal reflux (Chronic) History of hyperlipidemia (Chronic) History of hypertension (Chronic) S/P CABG (coronary artery bypass graft) (Chronic) Obesity (BMI 30.0-34.9) (Chronic) Stasis dermatitis of both legs (Chronic) Lymphedema of both lower extremities (Chronic) Heart failure with preserved ejection fraction (Chronic) 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) Thrombocytopenia (Chronic) Neuropathy, peripheral (Chronic) Surgical History: coronary bypass surgery, - - Right femoral bypass surgery, cochlear impants - *Family History Sibling History Items: Heart Disease Maternal History Items: No pertinent history Paternal History Items: No pertinent history Smoking Status: Former smoker Tobacco Use: Non-smoker Alcohol: None Drugs: None Review of Systems - Review of Systems General: Denies: Fever, Night Sweats, Fatigue Cardiovascular: Reports: Chest Discomfort at Rest, Shortness of Breath, Peripheral Edema. Denies: Chest Discomfort, Orthopnea, PND, Palpitations, Lightheadedness, Dizziness, Near Syncope, Syncope Respiratory: Denies: Cough, Sputum Production, Hemoptysis Gastrointestinal: Denies: Hematemesis, Hematochezia, Melena Genitourinary: Denies: Dysuria, Hematuria Skin: Denies: Rash Subjectve: Pleasant lady in no apparent distress Objective: Vital Signs Temp Pulse Resp BP Pulse Ox 98.3 F 62 18 123/65 H 95 10/13/17 04:25 10/13/17 04:25 10/13/17 04:25 10/13/17 04:25 10/13/17 04:25 Oxygen Flow Rate (L/min) 4 Oxygen Delivery Method Nasal Cannula Weight: 221 lb 5.506 oz Body Mass Index (BMI) 34.0 Intake and Output for Last 24 Hours 10/11/17 10/12/17 10/13/17 23:59 23:59 23:59 Output Total 900 / 900 900 / 900 Balance -900 / -900 -900 / -900 General: Awake, Alert, Oriented x 3 HEENT: PERRL, EOMI, Sclera Non Icteric Neck: Supple, Good ROM, No Lymph Node Enlargement Lungs: Clear to auscultation Cardiovascular: Regular Rhythm, Normal S1, Normal S2, No Rubs, No Gallops Murmur Murmur: Grade 2/6, Early Systolic, LLSB Vascular: No Carotid Bruits, Normal Femoral Pulses, Normal Radial Pulses, Normal Dorsalis Pedal Pulse, Normal Posterior Tibial Pulses Abdomen: Bowel Sounds Present, Soft, Non Tender, No HSM, No Organomegaly Extremities: No Cyanosis, No Clubbing, No edema Neurological: No Focal Motor or Sensory Deficit 10/12/17 18:07: Troponin I 1.42 H* 10/12/17 21:34: Troponin I 1.64 H* 10/13/17 03:32: WBC 7.4, RBC 3.73 L, Hgb 11.0 L, Hct 36.0 L, MCV 96.5, MCH 29.5 , MCHC 30.6 L, RDW 16.6 H, RDW Differential 55.6 H, Plt Count 128 L, MPV 10.2 10/13/17 03:32: Sodium 146 H, Potassium 4.1, Chloride 110 H, Carbon Dioxide 31.0 , Anion Gap 5, BUN 39 H, Creatinine 1.54 H, Est GFR (MDRD) Af Amer 43 L, Est GFR (MDRD) Non-Af 36 L, BUN/Creatinine Ratio 25.3 H, Glucose 142 H, Calcium 7.9 L, Troponin I 2.02 H* Rhythm: EKG: Normal sinus rhythm with ST depression noted in leads I, aVL, V4 through V6. ECHO: Preserved ejection fraction with moderate aortic stenosis and a mean trans -aortic gradient of 23 mmHg Assessment/Plan 1. Non-ST elevation myocardial infarction. Patient does have evidence of coronary artery disease and presents with hypoxia and is noted to have EKG changes with non-ST elevation myocardial infarction. It may be prudent to reassess her coronary anatomy to help guide therapy. Perhaps ischemia may be contributing to some of her recurrent admissions with congestive heart failure. The records of her bypass surgery would be obtained and will plan on performing this sometime today. In the meantime she will continue on her aspirin and loaded with clopidogrel. Her beta blockers would also be continued. 2. Aortic valvular disease. She does have a history of moderate aortic stenosis with a valve mean gradient of 23 mmHg. Due to her body habitus it has been difficult to quantify exactly the extent of aortic stenosis. At this time however I does not appear to be severe. 3. Pulmonary hypertension Her pulmonary hypertension is likely secondary to aortic valve disease as well as diastolic dysfunction. A right heart catheterization should be performed to get a more accurate assessment of the above. 4. Hypertension Her blood pressure is still elevated and the plan would be to continue with aggressive blood pressure medication including beta apryl Norvasc and ARB. 5. Risk factor modification She would need to continue with aggressive therapy with aspirin and statin as well as weight loss. Thank you for allowing me to participate in the care of your patient. Please don't hesitate to call if any issues arise
[2017-10-13] MEDS: 0.9% Normal Saline 1,000 ML 100 ML IV (07:28)
--- NOTE | 2017-10-13 08:23 | CASEMGMT ---
According to the [facility] website, the following are in-network tertiary facilities: [facility], [place], [facility], [facility], [facility], [facility], and . Juvencio GUPTA CM
[2017-10-13] MEDS: Losartan Potassium 100 MG Tablet PO (08:24)
[2017-10-13] MEDS: Spironolactone 25 MG Tablet PO (08:24)
[2017-10-13] MEDS: Glucerna Shake 120 ML LIQUID PO ×3 (08:24→16:40)
[2017-10-13] MEDS: Isosorbide Mononitrate 30 MG Tablet PO (08:25)
[2017-10-13] MEDS: Pantoprazole Sodium 40 MG Tablet PO ×2 (08:25→22:33)
[2017-10-13] MEDS: amLODIPine 5 MG Tablet PO (08:25)
[2017-10-13] MEDS: Ferrous Gluconate 325 MG Tablet PO (08:25)
[2017-10-13] MEDS: Clopidogrel Bisulfate 300 MG Tablet PO (08:25)
[2017-10-13] MEDS: Aspirin 81 MG TAB.CHEW PO (08:25)
[2017-10-13] MEDS: Gabapentin 100 MG Capsule PO ×2 (08:25→16:38)
[2017-10-13] MEDS: Furosemide 40 MG/4 ML Vial IV ×3 (08:25→22:35)
[2017-10-13] MEDS: Sucralfate 1 GM Tablet PO ×4 (08:25→22:33)
[2017-10-13] MEDS: Metoprolol Tartrate 100 MG Tablet PO ×2 (08:29→22:34)
--- NOTE | 2017-10-13 10:42 | CASEMGMT ---
Referral to Low at [facility], voices understanding and states she will be in this afternoon to speak with pt regarding CCN. Juvencio GUPTA CM
--- NOTE | 2017-10-13 11:22 | NURSING ---
Student nurses just finished washing legs and applying Eucerin cream. no open areas noted. just dry flaky skin. much less edema noted. very minimal at this time. applied kerlix followed by CARLOS A wraps after the Eucerin was applied.
--- NOTE | 2017-10-13 11:56 | PCM.PN.BLA ---
Progress Note The patient was brought down for cardiac catheterization and could not lie down flat or even semi-recumbent was quite short of breath. I will therefore suggest that we optimize her treatment further before pursuing the above. The cardiac catheterization will be canceled for today and rescheduled for when she is more stable.
[2017-10-13 12:15] LABS: Bedside Glucose 212 mg/dL (70-110)
--- NOTE | 2017-10-13 12:43 | CASEMGMT ---
Addendum entered by Milady Alejandra 10/13/17 13:15: Low from [facility] came to talk with patient and patient told her no. Milady HARVEY Original Note: SW spoke with patient, introduced self and role at [facility]. SW spoke with patient about [facility] ([facility]). SW told her they are going to try and talk with her while she is here at [facility]. SW explained that SW understands that going home and staying at home (not alf) is important to her. SW explained that accepting help at home via home health and [facility] will help her with her goal. She agreed with this. She said as long as they don't abandon me. She said she had [facility] before and they just up and left. SW tried to explain to her that her insurance may have discontinued home health services. She did not say anything to this. She is open to talking with [facility]. Milady HARVEY
--- NOTE | 2017-10-13 12:43 | PCM.PROGNOTE ---
<Yvrose Horton - Last Filed: 10/13/17 12:53> Subjective: Patient seen and examined. Denies shortness of breath. Denies chest pain. Wound nurse in room changing dressings on lower extremities. When asked patient what happened with her oxygen at home she states you tell me. She says she was only given an oxygen tank that was half full and ran out. Denies other complaints at this time. - Physical Exam General: Alert, Oriented x3, Cooperative, No apparent distress HEENT: Atraumatic, PERRLA, EOMI, Normocephalic Neck: Supple, No JVD, Negative Carotid Bruits Lungs: Clear to auscultation, Diminished Cardiovascular: Regular rate, Regular Rhythm, Normal S1, Normal S2, Murmur Abdomen: Bowel Sounds Present, Soft, Non Tender, Non-Distended Extremities: No clubbing, No cyanosis, No edema Skin: - - Bilateral lower extremity lymphedema with severe maceration. Musculoskeletal: No Tenderness to Palpation of Joints or Extremities Neurological: Cranial nerves II-XII grossly intact, Neuro grossly intact Psych/Mental Status: Normal Affect, Appropriate Vital Signs Temp Pulse Resp BP Pulse Ox 97.8 F 61 19 H 144/61 H 92 10/13/17 12:20 10/13/17 12:39 10/13/17 12:20 10/13/17 12:20 10/13/17 12:20 Oxygen Flow Rate (L/min) 5 Oxygen Delivery Method Nasal Cannula Weight: 100.4 kg Body Mass Index (BMI) 34.0 Intake and Output for Last 24 Hours 10/11/17 10/12/17 10/13/17 23:59 23:59 23:59 Intake Total 520 / 520 Output Total 900 / 900 1800 / 1800 Balance -900 / -900 -1280 / -1280 Laboratory Tests Past 24 Hrs 10/12/17 10/12/17 10/13/17 18:07 21:34 03:32 WBC 7.4 RBC 3.73 L Hgb 11.0 L Hct 36.0 L MCV 96.5 MCH 29.5 MCHC 30.6 L RDW 16.6 H RDW Differential 55.6 H Plt Count 128 L MPV 10.2 Sodium Potassium Chloride Carbon Dioxide Anion Gap BUN Creatinine Estim Creat Clear Calc Est GFR (MDRD) Af Amer Est GFR (MDRD) Non-Af BUN/Creatinine Ratio Glucose Calcium Troponin I 1.42 H* 1.64 H* 10/13/17 03:32 WBC RBC Hgb Hct MCV MCH MCHC RDW RDW Differential Plt Count MPV Sodium 146 H Potassium 4.1 Chloride 110 H Carbon Dioxide 31.0 Anion Gap 5 BUN 39 H Creatinine 1.54 H Estim Creat Clear Calc 36.25 Est GFR (MDRD) Af Amer 43 L Est GFR (MDRD) Non-Af 36 L BUN/Creatinine Ratio 25.3 H Glucose 142 H Calcium 7.9 L Troponin I 2.02 H* POC Glucose 10/13/17 10/13/17 10/12/17 12:07 06:47 22:23 POC Glucose 212 H 139 H 196 H 10/12/17 18:15 POC Glucose 81 Medical Necessity - Tobacco Use Smoking Status: Former smoker Tobacco Use: Non-smoker Assessment/Plan Patient is a 66-year-old female admitted 10/08/17 due to shortness of breath. She has a past medical history of CAD status post CABG in May 2008, CHF, chronic hypoxic respiratory failure requiring supplemental oxygen at night, bilateral lower extremity lymphedema, type 2 diabetes mellitus, hyperlipidemia, hypertension, chronic kidney disease stage III, GERD, obesity. 1. Acute on chronic hypoxic respiratory failure secondary to acute on chronic diastolic CHF-echocardiogram March 2016 showed an EF of 65%, pulmonary artery systolic pressure 59 mmHg, moderate pulmonary hypertension, mild aortic stenosis. Repeat echocardiogram showed an EF of 55-60%, pulmonary artery systolic pressure 62 mmHg, moderate aortic stenosis with mean aortic valve gradient 23 mmHg. Chest x-ray on admission shows progression of CHF with bibasilar atelectasis and small bilateral pleural effusions. Continue IV Lasix 40 mg twice daily. Continue metoprolol, losartan. Continue supplemental oxygen to maintain O2 at or above 90%. Patient requires 3 L nasal cannula at baseline. 2. NSTEMI-cardiology consulted. Continue aspirin, Plavix, beta blockers. Patient attempted cardiac catheterization this morning but became short of breath. Will be reattempted after further diuresis. 3. CAD-status post CABG in May 2008. Continue aspirin, statin, metoprolol, losartan, Imdur. 4. Bilateral lower extremity lymphedema-bilateral lower extremities severely macerated. Continue dressing changes with Aquacel Ag, cover with dry dressings and wrapped with Kerlix. Patient had recent lower extremity arterial study 09/23/2017 which showed normal arterial perfusion bilaterally. Continue outpatient follow-up with wound center and home health at discharge. 5. Type 2 diabetes mellitus-Hemoglobin A1c 6.1%. Continue home insulin regimen. 6. Hyperlipidemia-continue statin. 7. Hypertension-stable, continue home regimen. 8. Chronic kidney disease stage III-creatinine 1.2-1.3 at baseline. Currently 1.5. Monitor BMP. 9. GERD-continue PPI. 10. Obesity-encouraged diet and lifestyle modifications. DVT prophylaxis-Lovenox subcu. This patient was seen by MICHAELA Ohara under the supervision of Dr. Hardin. <Era Hardin - Last Filed: 10/13/17 18:14> - Physical Exam Vital Signs Temp Pulse Resp BP Pulse Ox 98.2 F 58 L 17 120/61 94 10/13/17 17:01 10/13/17 17:01 10/13/17 17:01 10/13/17 17:01 10/13/17 17:01 Oxygen Flow Rate (L/min) 5 Oxygen Delivery Method Nasal Cannula Weight: 100.4 kg Body Mass Index (BMI) 34.0 Intake and Output for Last 24 Hours 10/11/17 10/12/17 10/13/17 23:59 23:59 23:59 Intake Total 520 / 520 Output Total 900 / 900 1800 / 1800 Balance -900 / -900 -1280 / -1280 Laboratory Tests Past 24 Hrs 10/12/17 10/12/17 10/13/17 18:07 21:34 03:32 WBC 7.4 RBC 3.73 L Hgb 11.0 L Hct 36.0 L MCV 96.5 MCH 29.5 MCHC 30.6 L RDW 16.6 H RDW Differential 55.6 H Plt Count 128 L MPV 10.2 Sodium Potassium Chloride Carbon Dioxide Anion Gap BUN Creatinine Estim Creat Clear Calc Est GFR (MDRD) Af Amer Est GFR (MDRD) Non-Af BUN/Creatinine Ratio Glucose Calcium Troponin I 1.42 H* 1.64 H* Urine Color Urine Clarity Urine pH Ur Specific [place] Urine Protein Urine Glucose (UA) Urine Ketones Urine Occult Blood Urine Nitrite Urine Bilirubin Urine Urobilinogen Ur Leukocyte Esterase Urine RBC Urine WBC Ur Squamous Epith Cells Urine Bacteria Hyaline Casts Urine Mucus U Random Total Protein Urine Creatinine Protein/Creatinin Ratio 10/13/17 10/13/17 10/13/17 03:32 16:50 16:50 WBC RBC Hgb Hct MCV MCH MCHC RDW RDW Differential Plt Count MPV Sodium 146 H Potassium 4.1 Chloride 110 H Carbon Dioxide 31.0 Anion Gap 5 BUN 39 H Creatinine 1.54 H Estim Creat Clear Calc 36.25 Est GFR (MDRD) Af Amer 43 L Est GFR (MDRD) Non-Af 36 L BUN/Creatinine Ratio 25.3 H Glucose 142 H Calcium 7.9 L Troponin I 2.02 H* Urine Color Yellow Urine Clarity Clear Urine pH 6.0 Ur Specific [place] 1.015 Urine Protein 100 H Urine Glucose (UA) 50 H Urine Ketones Negative Urine Occult Blood 25 H Urine Nitrite Negative Urine Bilirubin Negative Urine Urobilinogen Normal Ur Leukocyte Esterase Negative Urine RBC 0-5 SEEN Urine WBC 0-5 SEEN Ur Squamous Epith Cells 0 SEEN Urine Bacteria 0 SEEN Hyaline Casts 10-25 SEEN Urine Mucus 0 SEEN U Random Total Protein 133.9 H Urine Creatinine 49.00 Protein/Creatinin Ratio 2733 H POC Glucose 10/13/17 10/13/17 10/13/17 16:32 12:07 06:47 POC Glucose 146 H 212 H 139 H 10/12/17 10/12/17 22:23 18:15 POC Glucose 196 H 81 Assessment/Plan Patient was seen and examined. She is sitting up in bed on 4 L of oxygen. She was sent for cardiac cath and could not lie flat and procedure could not proceed. It was aborted. Patient denies any chest pressure or dizziness or palpitation. No other acute events overnight. Physical exam shows the patient is about the same. Laboratory investigations reveal increase in her creatinine, will consult nephrology, and with patient for acute kidney injury. Would increase Lasix to IV 40 mg 3 times daily and monitor his renal function as well as weights very closely. Labs in the morning Code Visit Inpatient E&M: [id number] [facility] L3
--- NOTE | 2017-10-13 12:54 | CASEMGMT ---
CHART REVIEW: STRATA 3 ADM DX: CHF PT JUST DISCHARGED ON 10/11/17 AND RETURNED TO ED 10/12/17 WITH SOB. PER EMS, PT HAD HER NASAL CANNULA HOOKED UP TO AN EMPTY TANK. ACCORDING TO PT, SHE HAS 5 OTHER TANKS AT HOME WELL. PT STATES THAT SHE IS AWARE THAT SHE NEEDS TO CALL HEALTH SYSTEM WHEN TANKS ARE LOW/EMPTY. ASSESSMENT: Per physician report, the patient is a 66 year old F multiple comorbidities significant for CAD status post CABG, acute on chronic CHF, hypertension, hyperlipidemia, bilateral chronic lymphedema, recently admitted on 0 09/27/2017 and discharged on 10/11/2017 with acute on chronic hypoxic respiratory failure and managed as acute on chronic diastolic CHF. Patient was discharged home with home oxygen. She states that when she got her oxygen tank, it did not have any oxygen in it and she was having increased work of breathing. She called the squad, the squad found her SPO2 to be in the 40s and her oxygen tank was empty. Vitals in the ED stable, patient was saturating well on 6 L of oxygen. Chest x-ray showed worsening CHF pattern. TREATMENT PLAN: LASIX WILL BE CONTINUED 40MG TWICE DAILY WELL METOPROLOL AND LOSARTAN. OXYGEN SUPPLEMENTATION CONTINUED TO MAINTAIN O2 AT OR ABOVE 90%. PT IS ON 3LITERS NC AT BASELINE. PT TO HAVE HEART CATH BUT WAS UNABLE TO COMPLETE THIS AM D/T SOB. TRANSITION PLANNING/CARE: ALONSO BARR WILL CONTINUE TO FOLLOW FOR NEEDS. ALONSO BARR WILL VERIFY WITH HEALTH SYSTEM THAT PT HAS A CONCENTRATOR AND FULL REPLACEMENT TANKS AT HOME. REFERRAL TO [facility] AT THIS TIME AND THEY PLAN TO SEE PT TODAY. [facility] AWARE THAT PT WAS ADMITTED AND STATES THEY WOULD LIKE NOTIFIED WHEN PT TO BE DISCHARGED AND THEY STATE THAT THEY DO NOT NEED ANY FURTHER PAPERWORK AT THIS TIME TO START PT CARE AT DISCHARGE. SW TO F/U WITH PT WELL FOR ANY FURTHER FINANCIAL/PASSPORT ASSISTANCE. SSTATEN ALONSO BARR
--- NOTE | 2017-10-13 13:30 | CCN.REFER ---
VISIT TO ROOM. PATIENT ADAMANTLY DECLINING CCN PROGRAM AT THIS TIME. SOCIAL WORK MADE AWARE.
--- NOTE | 2017-10-13 15:37 | US_ITS ---
STUDY: RENAL ULTRASOUND - COMPLETE REASON FOR EXAM: Female, 66 years old. Chronic kidney disease TECHNIQUE: Ultrasound evaluation of the kidneys was performed with real-time and static avila-scale imaging. COMPARISON: CT dated 02/16/2016 FINDINGS: RIGHT KIDNEY: Normal location of the right kidney, which is normal in size. The right kidney measures 11.1 cm. There is a normal cortex of the right kidney. There is no right renal mass or cyst. There are no right renal calculi. There is no right hydronephrosis. DISTAL RIGHT URETER: There is non-visualization of the distal right ureter. There is no demonstrated right ureterovesical junction calculus. There is no demonstrated right ureteral jet. LEFT KIDNEY: Normal location of the left kidney, which is normal in size. The left kidney measures 12.2 cm. There is a normal cortex of the left kidney. There is no left renal mass or cyst. There are no left renal calculi. There is no left hydronephrosis. DISTAL LEFT URETER: There is non-visualization of the distal left ureter. There is no demonstrated left ureterovesical junction calculus. There is no demonstrated left ureteral jet. BLADDER: The urinary bladder is partially distended and appears unremarkable. US/Kidney and Bladder IMPRESSION: Normal ultrasound of the kidneys and urinary bladder. Electronically Signed: Janes Marcus, at 22:23 EDT Tel , Service support ,
--- NOTE | 2017-10-13 16:36 | PCM.CONS.R ---
Consultation - Renal 10/13/17 PCP/ Referring MD: Requesting physician: Dr Hardin Primary care physician: Kim Field Reason for Consultation:: KIM - History of Present Illness History of Present Illness: The patient is a 66 year old obese F admitted for acute CHF, SOB with chest pain. She states her shortness breath has been chronic in nature. Shortness of breath increased past 24 hours prior to admission. She had chest pain intermittently with exertion. PMH significant for CAD status post CABG 2007, acute on chronic CHF with multiple hospitalizations, diabetes mellitus type 2 on insulin, hypertension, hyperlipidemia, bilateral chronic lymphedema. She is a vague historian. She was recently admitted on 09/27/2017 and discharged on 10/11/2017 with acute on chronic hypoxic respiratory failure and managed as acute on chronic diastolic CHF. She was admitted with severe hypoxemia with O2 saturation in the 40s after found using an empty oxygen tank at home. Echocardiogram showed severe pulmonary hypertension with LVEF of 55% and moderate aortic stenosis on 10/08/17. She was diagnosed with an NSTEMI with troponin up to 2.0 and abnormal EKG however heart catheterization was canceled due to orthopnea. Creatinine increased from 1.2 on admission to 1.5 today. She is on Cozaar and Spironolactone. She is on increased doses of IV Lasix for fluid retention and persistent shortness of breath. She was hypercapnic on blood gas on admission. She is morbidly obese but has not been officially tested for sleep apnea. - Allergies Allergies: Allergies Penicillins Allergy (Verified 10/12/17 11:00) Rash rosiglitazone maleate [From Avandia] Allergy (Verified 10/12/17 11:00) Swelling & diarrhea simvastatin [From Zocor] Allergy (Verified 10/12/17 11:00) Muscle weakness atorvastatin calcium [From Lipitor] Adverse Reaction (Verified 10/12/17 11:00) Muscle weakness esomeprazole magnesium [From Nexium] Adverse Reaction (Verified 10/12/17 11:00) Diarrhea lansoprazole [From Prevacid] Adverse Reaction (Verified 10/12/17 11:00) Diarrhea Sulfa (Sulfonamide Antibiotics) Adverse Reaction (Verified 10/12/17 11:00) Nausea/Vom/Diarrhea from PCP office records - Current Medications Current Medications: Current Medications Acetaminophen (Tylenol) 650 mg PO Q6H PRN PRN PRN Reason: Mild Pain (scale 0-3)/T>100.7 Amlodipine Besylate (Norvasc) 5 mg PO DAILY [facility] Last Admin: 10/13/17 08:25 Dose: 5 mg Aspirin (Aspirin, Baby) 81 mg PO DAILY@0800 [facility] Last Admin: 10/13/17 08:25 Dose: 81 mg Bisacodyl (Dulcolax) 5 mg PO DAILY PRN PRN PRN Reason: Constipation Enoxaparin Sodium (Lovenox) 100 mg SC Q12@0600,1800 [facility] Last Admin: 10/13/17 07:30 Dose: Not Given Ergocalciferol (Vitamin D) 50,000 unit PO SA [facility] Ferrous Gluconate (Ferrous Gluconate) 325 mg PO DAILY@0800 [facility] Last Admin: 10/13/17 08:25 Dose: 325 mg Furosemide (Lasix) 40 mg IV Q8 [facility] Gabapentin (Neurontin) 100 mg PO BIDCM [facility] Last Admin: 10/13/17 08:25 Dose: 100 mg Insulin Aspart (Novolog Flexpen (Bkc)) 20 units SC TIDAC [facility] Last Admin: 10/13/17 12:18 Dose: 20 units Insulin Aspart (Novolog Flexpen (Bkc)) 0 units SC ACHS [facility] PRN Reason: Protocol Last Admin: 10/13/17 16:36 Dose: Not Given Insulin Detemir (Levemir (Bkc)) 52 units SC QHS [facility] Last Admin: 10/12/17 22:29 Dose: 52 units Isosorbide Mononitrate (Imdur) 30 mg PO DAILY [facility] Last Admin: 10/13/17 08:25 Dose: 30 mg Magnesium Hydroxide (Milk Of Magnesia) 30 ml PO DAILY PRN PRN Reason: Constipation Metoprolol Tartrate (Lopressor (Beta Richard)) 100 mg PO BID [facility] Last Admin: 10/13/17 08:29 Dose: 100 mg Montelukast Sodium (Singulair) 10 mg PO QHS [facility] Last Admin: 10/12/17 22:28 Dose: 10 mg Multi-Ingredient Cream (Eucerin) 1 applic TOPICAL BID PRN [facility] PRN Reason: Protocol Nitroglycerin (Nitrostat) 0.4 mg SUBLINGUAL Q5M PRN PRN Reason: Chest Pain Nutritional Formula (Lactose Free) (Glucerna Shake) 120 ml PO TIDCM [facility] Last Admin: 10/13/17 12:18 Dose: 120 ml Ondansetron HCl (Zofran Odt) 8 mg PO Q6H PRN PRN PRN Reason: NAUSEA/VOMITING Ondansetron HCl (Zofran) 4 mg IV Q8H PRN PRN PRN Reason: NAUSEA Pantoprazole Sodium (Protonix) 40 mg PO BID [facility] Last Admin: 10/13/17 08:25 Dose: 40 mg Psyllium Hydrophilic Mucilloid (Metamucil) 1 packet PO DAILY PRN PRN PRN Reason: CONSTIPATION Rosuvastatin Calcium (Crestor) 2.5 mg PO QHS [facility] Last Admin: 10/12/17 22:27 Dose: 2.5 mg Sodium Chloride () 5 - 30 ml IV UD PRN PRN Reason: SALINE FLUSH Spironolactone (Aldactone) 25 mg PO DAILY [facility] Last Admin: 10/13/17 08:24 Dose: 25 mg Sucralfate (Carafate) 1 gm PO 1HR_ACHS [facility] Last Admin: 10/13/17 12:15 Dose: 1 gm - Past Medical History Past Medical History (Chronic Problems): Chronic Problems Venous insufficiency of both lower extremities (Chronic) Other specified peripheral vascular diseases (Chronic) Ulcer of left lower extremity with fat layer exposed (Chronic) Ulcer of right lower extremity with fat layer exposed (Chronic) Delayed wound healing (Chronic) Noncompliance with treatment regimen (Chronic) 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) Diabetes mellitus type 2 in obese (Chronic) Aortic stenosis, mild (Chronic) Pulmonary arterial hypertension (Chronic) Pulmonary nodules (Chronic) Cholelithiasis (Chronic) Tricuspid regurgitation (Chronic) History of esophageal reflux (Chronic) History of hyperlipidemia (Chronic) History of hypertension (Chronic) S/P CABG (coronary artery bypass graft) (Chronic) Obesity (BMI 30.0-34.9) (Chronic) Stasis dermatitis of both legs (Chronic) Lymphedema of both lower extremities (Chronic) Heart failure with preserved ejection fraction (Chronic) 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 Denies: Anorexia, Chills, Fever Eyes: Denies: Blurred vision HEENT: Reports: Difficulty Hearing. Denies: Head Aches, Sore Throat Cardiovascular: Reports: Chest Pain, Edema, Orthopnea, - - Heart murmur. Denies: Syncope Respiratory: Reports: Shortness of Breath, Shortness of breath upon exertion. Denies: Cough Gastrointestinal: Denies: Abdominal Pain, Constipation, Diarrhea, Nausea, Vomiting Genitourinary: Denies: Dysuria, Frequency Musculoskeletal: Reports: - - Leg swelling. Denies: Back Pain Skin: Denies: Rash Neurological: Reports: Balance problems - Uses a walker at home. Denies: Confusion, Tremor, Seizures Psychiatric: Denies: Anxiety, Depression Hematologic/ Lymphatic: Denies: Anemia, Hx of blood clot - Physical Exam General: Alert, Oriented x3, Cooperative, No apparent distress HEENT: PERRLA, EOMI Oral: Dry Mucosa Neck: Supple Lungs: Diminished, Rales Cardiovascular: Regular rate, Murmur Abdomen: Bowel Sounds Present, Soft, Non Tender, Distended, Obese Extremities: Edema, - - Varicose veins, legs wrapped Musculoskeletal: No Muscle Wasting Lymphatic: No Cervical, Supraclavicular, or Inguinal Adenopathy Neurological: Cranial nerves II-XII grossly intact Psych/Mental Status: Normal Affect, Appropriate, Alert and oriented to time, place, person, mood and affect Vital Signs Temp Pulse Resp BP Pulse Ox 97.8 F 61 19 H 144/61 H 92 10/13/17 12:20 10/13/17 12:39 10/13/17 12:20 10/13/17 12:20 10/13/17 12:20 Oxygen Flow Rate (L/min) 5 Oxygen Delivery Method Nasal Cannula Weight: 100.4 kg Body Mass Index (BMI) 34.0 Intake and Output for Last 24 Hours 10/11/17 10/12/17 10/13/17 23:59 23:59 23:59 Intake Total 520 / 520 Output Total 900 / 900 1800 / 1800 Balance -900 / -900 -1280 / -1280 Laboratory Tests Past 24 Hrs 10/12/17 10/12/17 10/13/17 18:07 21:34 03:32 WBC 7.4 RBC 3.73 L Hgb 11.0 L Hct 36.0 L MCV 96.5 MCH 29.5 MCHC 30.6 L RDW 16.6 H RDW Differential 55.6 H Plt Count 128 L MPV 10.2 Sodium Potassium Chloride Carbon Dioxide Anion Gap BUN Creatinine Estim Creat Clear Calc Est GFR (MDRD) Af Amer Est GFR (MDRD) Non-Af BUN/Creatinine Ratio Glucose Calcium Troponin I 1.42 H* 1.64 H* 10/13/17 03:32 WBC RBC Hgb Hct MCV MCH MCHC RDW RDW Differential Plt Count MPV Sodium 146 H Potassium 4.1 Chloride 110 H Carbon Dioxide 31.0 Anion Gap 5 BUN 39 H Creatinine 1.54 H Estim Creat Clear Calc 36.25 Est GFR (MDRD) Af Amer 43 L Est GFR (MDRD) Non-Af 36 L BUN/Creatinine Ratio 25.3 H Glucose 142 H Calcium 7.9 L Troponin I 2.02 H* POC Glucose 10/13/17 10/13/17 10/12/17 12:07 06:47 22:23 POC Glucose 212 H 139 H 196 H 10/12/17 18:15 POC Glucose 81 Clinical Impression(s) from Imaging Studies Chest X-Ray 10/12/17 12:07 IMPRESSION: Since prior study, there has been progression of the CHF with bibasilar atelectasis and small bilateral effusions. Electronically Signed: Rik Morfin MD at 12:32 EDT Tel [phone], Service support , Assessment/Plan 1. Acute kidney injury creatinine 1.2 progressed 1.5 on increased doses of Lasix, Cozaar, spironolactone. Advised to hold off on her Cozaar and spironolactone for now her renal function back to baseline. Check kidney ultrasound. 2. Acute on chronic CHF. Continue with IV diuretics. 3. Aortic stenosis moderate may be contributing to CHF 4. Hypertension stable 5. Diabetes mellitus type 2 check urine protein creatinine ratio with UA 6. NSTEMI with positive troponin. Cardiology following. Cardiac cath on hold due to orthopnea, shortness of breath. 7. Lower extremity edema, lymphedema suspect due to pulmonary hypertension, possible diastolic HF 8. Obstructive airway disease, hypoventilatory state with elevated carbon dioxide on blood gas on day of admission. May have obstructive apnea. 9. Morbid obesity Discussed with primary service
[2017-10-13] MEDS: 0.9% NaCl Peripheral Flush Adult/Peds IV (16:38)
[2017-10-13] MEDS: Enoxaparin 100 MG/ML Syringe SC (16:42)
--- NOTE | 2017-10-13 16:47 | CON.PCM_ITS ---
Consultation - Renal 10/13/17 PCP/ Referring MD: Requesting physician: Dr Hardin Primary care physician: Kim Field Reason for Consultation:: KIM - History of Present Illness History of Present Illness: The patient is a 66 year old obese F admitted for acute CHF, SOB with chest pain. She states her shortness breath has been chronic in nature. Shortness of breath increased past 24 hours prior to admission. She had chest pain intermittently with exertion. PMH significant for CAD status post CABG 2007, acute on chronic CHF with multiple hospitalizations, diabetes mellitus type 2 on insulin, hypertension, hyperlipidemia, bilateral chronic lymphedema. She is a vague historian. She was recently admitted on 09/27/2017 and discharged on 10/11 with acute on chronic hypoxic respiratory failure and managed as acute on chronic diastolic CHF. She was admitted with severe hypoxemia with O2 saturation in the 40s after found using an empty oxygen tank at home. Echocardiogram showed severe pulmonary hypertension with LVEF of 55% and moderate aortic stenosis on 10/08/17. She was diagnosed with an NSTEMI with troponin up to 2.0 and abnormal EKG however heart catheterization was canceled due to orthopnea. Creatinine increased from 1.2 on admission to 1.5 today. She is on Cozaar and Spironolactone. She is on increased doses of IV Lasix for fluid retention and persistent shortness of breath. She was hypercapnic on blood gas on admission. She is morbidly obese but has not been officially tested for sleep apnea. - Allergies Allergies: Allergies Penicillins Allergy (Verified 10/12/17 11:00) Rash rosiglitazone maleate [From Avandia] Allergy (Verified 10/12/17 11:00) Swelling & diarrhea simvastatin [From Zocor] Allergy (Verified 10/12/17 11:00) Muscle weakness atorvastatin calcium [From Lipitor] Adverse Reaction (Verified 10/12/17 11:00) Muscle weakness esomeprazole magnesium [From Nexium] Adverse Reaction (Verified 10/12/17 11:00) Diarrhea lansoprazole [From Prevacid] Adverse Reaction (Verified 10/12/17 11:00) Diarrhea Sulfa (Sulfonamide Antibiotics) Adverse Reaction (Verified 10/12/17 11:00) Nausea/Vom/Diarrhea from PCP office records - Current Medications Current Medications: Current Medications Acetaminophen (Tylenol) 650 mg PO Q6H PRN PRN PRN Reason: Mild Pain (scale 0-3)/T>100.7 Amlodipine Besylate (Norvasc) 5 mg PO DAILY [facility] Last Admin: 10/13/17 08:25 Dose: 5 mg Aspirin (Aspirin, Baby) 81 mg PO DAILY@0800 [facility] Last Admin: 10/13/17 08:25 Dose: 81 mg Bisacodyl (Dulcolax) 5 mg PO DAILY PRN PRN PRN Reason: Constipation Enoxaparin Sodium (Lovenox) 100 mg SC Q12@0600,1800 [facility] Last Admin: 10/13/17 07:30 Dose: Not Given Ergocalciferol (Vitamin D) 50,000 unit PO SA [facility] Ferrous Gluconate (Ferrous Gluconate) 325 mg PO DAILY@0800 [facility] Last Admin: 10/13/17 08:25 Dose: 325 mg Furosemide (Lasix) 40 mg IV Q8 [facility] Gabapentin (Neurontin) 100 mg PO BIDCM [facility] Last Admin: 10/13/17 08:25 Dose: 100 mg Insulin Aspart (Novolog Flexpen (Bkc)) 20 units SC TIDAC [facility] Last Admin: 10/13/17 12:18 Dose: 20 units Insulin Aspart (Novolog Flexpen (Bkc)) 0 units SC ACHS [facility] PRN Reason: Protocol Last Admin: 10/13/17 16:36 Dose: Not Given Insulin Detemir (Levemir (Bkc)) 52 units SC QHS [facility] Last Admin: 10/12/17 22:29 Dose: 52 units Isosorbide Mononitrate (Imdur) 30 mg PO DAILY [facility] Last Admin: 10/13/17 08:25 Dose: 30 mg Magnesium Hydroxide (Milk Of Magnesia) 30 ml PO DAILY PRN PRN Reason: Constipation Metoprolol Tartrate (Lopressor (Beta Richard)) 100 mg PO BID [facility] Last Admin: 10/13/17 08:29 Dose: 100 mg Montelukast Sodium (Singulair) 10 mg PO QHS [facility] Last Admin: 10/12/17 22:28 Dose: 10 mg Multi-Ingredient Cream (Eucerin) 1 applic TOPICAL BID PRN [facility] PRN Reason: Protocol Nitroglycerin (Nitrostat) 0.4 mg SUBLINGUAL Q5M PRN PRN Reason: Chest Pain Nutritional Formula (Lactose Free) (Glucerna Shake) 120 ml PO TIDCM [facility] Last Admin: 10/13/17 12:18 Dose: 120 ml Ondansetron HCl (Zofran Odt) 8 mg PO Q6H PRN PRN PRN Reason: NAUSEA/VOMITING Ondansetron HCl (Zofran) 4 mg IV Q8H PRN PRN PRN Reason: NAUSEA Pantoprazole Sodium (Protonix) 40 mg PO BID [facility] Last Admin: 10/13/17 08:25 Dose: 40 mg Psyllium Hydrophilic Mucilloid (Metamucil) 1 packet PO DAILY PRN PRN PRN Reason: CONSTIPATION Rosuvastatin Calcium (Crestor) 2.5 mg PO QHS [facility] Last Admin: 10/12/17 22:27 Dose: 2.5 mg Sodium Chloride () 5 - 30 ml IV UD PRN PRN Reason: SALINE FLUSH Spironolactone (Aldactone) 25 mg PO DAILY [facility] Last Admin: 10/13/17 08:24 Dose: 25 mg Sucralfate (Carafate) 1 gm PO 1HR_ACHS [facility] Last Admin: 10/13/17 12:15 Dose: 1 gm - Past Medical History Past Medical History (Chronic Problems): Chronic Problems Venous insufficiency of both lower extremities (Chronic) Other specified peripheral vascular diseases (Chronic) Ulcer of left lower extremity with fat layer exposed (Chronic) Ulcer of right lower extremity with fat layer exposed (Chronic) Delayed wound healing (Chronic) Noncompliance with treatment regimen (Chronic) 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) Diabetes mellitus type 2 in obese (Chronic) Aortic stenosis, mild (Chronic) Pulmonary arterial hypertension (Chronic) Pulmonary nodules (Chronic) Cholelithiasis (Chronic) Tricuspid regurgitation (Chronic) History of esophageal reflux (Chronic) History of hyperlipidemia (Chronic) History of hypertension (Chronic) S/P CABG (coronary artery bypass graft) (Chronic) Obesity (BMI 30.0-34.9) (Chronic) Stasis dermatitis of both legs (Chronic) Lymphedema of both lower extremities (Chronic) Heart failure with preserved ejection fraction (Chronic) 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 Denies: Anorexia, Chills, Fever Eyes: Denies: Blurred vision HEENT: Reports: Difficulty Hearing. Denies: Head Aches, Sore Throat Cardiovascular: Reports: Chest Pain, Edema, Orthopnea, - - Heart murmur. Denies : Syncope Respiratory: Reports: Shortness of Breath, Shortness of breath upon exertion. Denies: Cough Gastrointestinal: Denies: Abdominal Pain, Constipation, Diarrhea, Nausea, Vomiting Genitourinary: Denies: Dysuria, Frequency Musculoskeletal: Reports: - - Leg swelling. Denies: Back Pain Skin: Denies: Rash Neurological: Reports: Balance problems - Uses a walker at home. Denies: Confusion, Tremor, Seizures Psychiatric: Denies: Anxiety, Depression Hematologic/ Lymphatic: Denies: Anemia, Hx of blood clot - Physical Exam General: Alert, Oriented x3, Cooperative, No apparent distress HEENT: PERRLA, EOMI Oral: Dry Mucosa Neck: Supple Lungs: Diminished, Rales Cardiovascular: Regular rate, Murmur Abdomen: Bowel Sounds Present, Soft, Non Tender, Distended, Obese Extremities: Edema, - - Varicose veins, legs wrapped Musculoskeletal: No Muscle Wasting Lymphatic: No Cervical, Supraclavicular, or Inguinal Adenopathy Neurological: Cranial nerves II-XII grossly intact Psych/Mental Status: Normal Affect, Appropriate, Alert and oriented to time, place, person, mood and affect Vital Signs Temp Pulse Resp BP Pulse Ox 97.8 F 61 19 H 144/61 H 92 10/13/17 12:20 10/13/17 12:39 10/13/17 12:20 10/13/17 12:20 10/13/17 12:20 Oxygen Flow Rate (L/min) 5 Oxygen Delivery Method Nasal Cannula Weight: 100.4 kg Body Mass Index (BMI) 34.0 Intake and Output for Last 24 Hours 10/11/17 10/12/17 10/13/17 23:59 23:59 23:59 Intake Total 520 / 520 Output Total 900 / 900 1800 / 1800 Balance -900 / -900 -1280 / -1280 Laboratory Tests Past 24 Hrs 10/12/17 10/12/17 10/13/17 18:07 21:34 03:32 WBC 7.4 RBC 3.73 L Hgb 11.0 L Hct 36.0 L MCV 96.5 MCH 29.5 MCHC 30.6 L RDW 16.6 H RDW Differential 55.6 H Plt Count 128 L MPV 10.2 Sodium Potassium Chloride Carbon Dioxide Anion Gap BUN Creatinine Estim Creat Clear Calc Est GFR (MDRD) Af Amer Est GFR (MDRD) Non-Af BUN/Creatinine Ratio Glucose Calcium Troponin I 1.42 H* 1.64 H* 10/13/17 03:32 WBC RBC Hgb Hct MCV MCH MCHC RDW RDW Differential Plt Count MPV Sodium 146 H Potassium 4.1 Chloride 110 H Carbon Dioxide 31.0 Anion Gap 5 BUN 39 H Creatinine 1.54 H Estim Creat Clear Calc 36.25 Est GFR (MDRD) Af Amer 43 L Est GFR (MDRD) Non-Af 36 L BUN/Creatinine Ratio 25.3 H Glucose 142 H Calcium 7.9 L Troponin I 2.02 H* POC Glucose 10/13/17 10/13/17 10/12/17 12:07 06:47 22:23 POC Glucose 212 H 139 H 196 H 10/12/17 18:15 POC Glucose 81 Clinical Impression(s) from Imaging Studies Chest X-Ray 10/12/17 12:07 IMPRESSION: Since prior study, there has been progression of the CHF with bibasilar atelectasis and small bilateral effusions. Electronically Signed: Rik Morfin MD at 12:32 EDT Tel [phone], Service support , Assessment/Plan 1. Acute kidney injury creatinine 1.2 progressed 1.5 on increased doses of Lasix, Cozaar, spironolactone. Advised to hold off on her Cozaar and spironolactone for now her renal function back to baseline. Check kidney ultrasound. 2. Acute on chronic CHF. Continue with IV diuretics. 3. Aortic stenosis moderate may be contributing to CHF 4. Hypertension stable 5. Diabetes mellitus type 2 check urine protein creatinine ratio with UA 6. NSTEMI with positive troponin. Cardiology following. Cardiac cath on hold due to orthopnea, shortness of breath. 7. Lower extremity edema, lymphedema suspect due to pulmonary hypertension, possible diastolic HF 8. Obstructive airway disease, hypoventilatory state with elevated carbon dioxide on blood gas on day of admission. May have obstructive apnea. 9. Morbid obesity Discussed with primary service
[2017-10-13 17:01] LABS: Bacteria 0 SEEN /hpf (None Seen); Mucous, Urine 0 SEEN /hpf (<or=2+); Squamous Epithelial Cells - UA 0 SEEN /hpf (5-10)
[2017-10-13 17:11] LABS: Color, Urine Yellow (Yellow); Glucose, Dipstick 50 mg/dl (Normal); Ketone-Dipstick Negative (Negative); Leukocyte Esterase-Dipstick Negative /ul (Negative); Nitrite-Dipstick Negative (Negative); Occult Blood-Urine 25 /ul (Negative); Protein-Dipstick 100 mg/dl (Negative); Specific Gravity, Urine 1.015 (1.002-1.030); Urine Bilirubin Dipstick Negative (Negative); Urine Clarity Clear (Clear); Urine Urobilinogen Normal (Normal)
[2017-10-13 17:16] LABS: Bedside Glucose 146 mg/dL (70-110)
[2017-10-13 17:25] LABS: Protein, Urine (Random) 133.9 mg/dL (<11.9); Protein:Creat Ratio 2733 mg/g CRE (0-200)
[2017-10-13 18:05] LABS: Hyaline Cast 10-25 SEEN /lpf (0-5)
[2017-10-13 18:07] LABS: Red Blood Cells-Urine 0-5 SEEN /hpf (0-5); White Blood Cells 0-5 SEEN /hpf (0-5)
[2017-10-13] MEDS: Montelukast 10 MG Tablet PO (22:33)
[2017-10-13 23:10] LABS: Bedside Glucose 75 mg/dL (70-110)
[2017-10-13 23:10] LABS: Bedside Glucose 86 mg/dL (70-110)
[2017-10-13 23:11] LABS: Bedside Glucose 107 mg/dL (70-110)
[2017-10-14] VITALS (13 sets, daily range): BP systolic 122–143; BP diastolic 53–93; PULSE 59–68; RESP 14–18; TEMP 35.9–37.1; O2SAT 92–96
[2017-10-14] MEDS: Furosemide 40 MG/4 ML Vial IV ×3 (06:02→23:31)
[2017-10-14] MEDS: Enoxaparin 100 MG/ML Syringe SC ×2 (06:04→17:21)
[2017-10-14 06:10] LABS: Bedside Glucose 147 mg/dL (70-110)
[2017-10-14 06:44] LABS: Hematocrit 34.5 % (37-47); Hemoglobin 10.6 g/dl (12.0-15.0); Mean Corp Hgb Conc 30.7 g/gl (32-36); Mean Corpuscular Hgb 29.6 pg (27.0-32.0); Mean Corpuscular Volume 96.4 fL (81-99); Mean Platelet Vol. 10.2 fl (6.2-12.0); Platelet Count 116 K/mm3 (150-450); RBC Distribution Width SD 54.2 fl (35.1-43.9); Red Blood Count 3.58 M/mm3 (4.2-5.4); White Blood Count 7.4 K/mm3 (4.4-11.0)
[2017-10-14 06:47] LABS: Scan Indicated on CBC? Y/N NO
[2017-10-14 07:04] LABS: Anion Gap 8 (5-15); BUN 44 mg/dL (7-18); BUN/Creat Ratio 30.1 RATIO (10-20); Calcium,Total 7.9 mg/dL (8.5-10.1); Chloride 107 mmol/L (98-107); Creatinine, Serum 1.46 mg/dL (0.55-1.02); EST Glomerular Filtration Rate 38 mL/min (>60); Est Glom Filt Rate - Afr Amer 46 mL/min (>60); Estimated Creatinine Clearance 38.24 ml/min; Glucose 150 mg/dL (74-106); Potassium 4.5 mmol/L (3.5-5.1); Sodium Level 145 mmol/L (136-145)
[2017-10-14 07:06] LABS: Bedside Glucose 148 mg/dL (70-110)
--- NOTE | 2017-10-14 07:34 | PN.CARD_ITS ---
Subjectve: The patient was seen and evaluated. She appears to be breathing better but still cannot lie down flat. Objective: Vital Signs Temp Pulse Resp BP Pulse Ox 98.7 F 59 L 18 135/63 H 96 10/14/17 04:33 10/14/17 06:54 10/14/17 04:33 10/14/17 04:33 10/14/17 04:33 Oxygen Flow Rate (L/min) 4 Oxygen Delivery Method Nasal Cannula Weight: 221 lb 5.506 oz Body Mass Index (BMI) 34.0 Intake and Output for Last 24 Hours 10/12/17 10/13/17 10/14/17 23:59 23:59 23:59 Intake Total 1145 / 1145 Output Total 900 / 900 2775 / 2775 1000 / 1000 Balance -900 / -900 -1630 / -1630 -1000 / -1000 General: Awake, Alert, Oriented x 3 HEENT: PERRL, EOMI, Sclera Non Icteric Neck: Supple, Good ROM, No Lymph Node Enlargement Lungs: Clear to auscultation Cardiovascular: Regular Rhythm, Normal S1, Normal S2, No Rubs, No Gallops Murmur Murmur: Grade 2/6, Early Systolic, LLSB Vascular: No Carotid Bruits, Normal Femoral Pulses, Normal Radial Pulses, Normal Dorsalis Pedal Pulse, Normal Posterior Tibial Pulses Abdomen: Bowel Sounds Present, Soft, Non Tender, No HSM, No Organomegaly Extremities: No Cyanosis, No Clubbing, No edema Neurological: No Focal Motor or Sensory Deficit 10/13/17 16:50: Urine Color Yellow, Urine Clarity Clear, Urine pH 6.0, Ur Specific [place] 1.015, Urine Protein 100 H, Urine Glucose (UA) 50 H, Urine Ketones Negative, Urine Occult Blood 25 H, Urine Nitrite Negative, Urine Bilirubin Negative, Urine Urobilinogen Normal, Ur Leukocyte Esterase Negative, Urine RBC 0-5 SEEN, Urine WBC 0-5 SEEN 10/14/17 06:20: WBC 7.4, RBC 3.58 L, Hgb 10.6 L, Hct 34.5 L, MCV 96.4, MCH 29.6 , MCHC 30.7 L, RDW 16.0 H, RDW Differential 54.2 H, Plt Count 116 L, MPV 10.2 10/14/17 06:20: Sodium 145, Potassium 4.5, Chloride 107, Carbon Dioxide 30.0, Anion Gap 8, BUN 44 H, Creatinine 1.46 H, Est GFR (MDRD) Af Amer 46 L, Est GFR ( MDRD) Non-Af 38 L, BUN/Creatinine Ratio 30.1 H, Glucose 150 H, Calcium 7.9 L Rhythm: EKG: ECHO: Stress Test: Cardiac Cath: PCI: CT Surgery: Holter monitor: EPS: PPM: CXR: Chest CT Scan: Medical Necessity - Tobacco Use Smoking Status: Former smoker Tobacco Use: Non-smoker Assessment/Plan 1. Non-ST elevation myocardial infarction. Patient does have evidence of coronary artery disease and presents with hypoxia and is noted to have EKG changes with non-ST elevation myocardial infarction. It may be prudent to reassess her coronary anatomy to help guide therapy. Perhaps ischemia may be contributing to some of her recurrent admissions with congestive heart failure. Her beta blockers will be continued as well as clopidogrel and aspirin. When she is doing much better from the congestive heart failure standpoint which would likely be in the next 24 hours a cardiac catheterization will be performed. 2. Aortic valvular disease. She does have a history of moderate aortic stenosis with a valve mean gradient of 23 mmHg. Due to her body habitus it has been difficult to quantify exactly the extent of aortic stenosis. At this time however It does not appear to be severe. 3. Pulmonary hypertension Her pulmonary hypertension is likely secondary to aortic valve disease as well as diastolic dysfunction. A right heart catheterization should be performed to get a more accurate assessment of the above. 4. Hypertension Her blood pressure is still elevated and the plan would be to continue with aggressive blood pressure medication including beta apryl Norvasc and ARB. 5. Risk factor modification She would need to continue with aggressive therapy with aspirin and statin as well as weight loss. 6. Congestive heart failure-acute diastolic She appears to have diastolic heart failure it is undergoing diuresis. She was also seen by the renal service yesterday at this time will continue her beta- apryl and hold off on her ARB as well as spironolactone. If she is able to be more recumbent a right and left heart catheterization will be performed. She is more comfortable today than she was yesterday though. Thank you for allowing me to participate in the care of your patient. Please don't hesitate to call if any issues arise
[2017-10-14] MEDS: Aspirin 81 MG TAB.CHEW PO (07:58)
[2017-10-14] MEDS: Gabapentin 100 MG Capsule PO ×2 (07:58→17:21)
[2017-10-14] MEDS: Ferrous Gluconate 325 MG Tablet PO (07:58)
[2017-10-14] MEDS: Sucralfate 1 GM Tablet PO ×4 (07:58→23:29)
[2017-10-14] MEDS: Glucerna Shake 120 ML LIQUID PO ×3 (08:02→17:20)
--- NOTE | 2017-10-14 08:43 | PN.RENAL_ITS ---
Subjective: still with shortness of breath, no chest pain. Creatinine slightly improved. - Physical Exam General: Alert, Oriented x3, Cooperative, No apparent distress Oral: Dry Mucosa Neck: Supple Lungs: Diminished, Rales Cardiovascular: Regular rate, Murmur - Gr 4/6 ROBERTA Abdomen: Bowel Sounds Present, Soft, Non Tender, Distended, Obese Extremities: Edema - mild BLE, wrapped, improving Musculoskeletal: No Muscle Wasting Neurological: Cranial nerves II-XII grossly intact Psych/Mental Status: Appropriate, Alert and oriented to time, place, person, mood and affect Vital Signs Temp Pulse Resp BP Pulse Ox 98.7 F 59 L 18 135/63 H 96 10/14/17 04:33 10/14/17 06:54 10/14/17 04:33 10/14/17 04:33 10/14/17 04:33 Oxygen Flow Rate (L/min) 4 Oxygen Delivery Method Nasal Cannula Weight: 100.4 kg Body Mass Index (BMI) 34.0 Intake and Output for Last 24 Hours 10/12/17 10/13/17 10/14/17 23:59 23:59 23:59 Intake Total 1145 / 1145 Output Total 900 / 900 2775 / 2775 1000 / 1000 Balance -900 / -900 -1630 / -1630 -1000 / -1000 Laboratory Tests Past 24 Hrs 10/13/17 10/13/17 10/14/17 16:50 16:50 06:20 WBC 7.4 RBC 3.58 L Hgb 10.6 L Hct 34.5 L MCV 96.4 MCH 29.6 MCHC 30.7 L RDW 16.0 H RDW Differential 54.2 H Plt Count 116 L MPV 10.2 Sodium Potassium Chloride Carbon Dioxide Anion Gap BUN Creatinine Estim Creat Clear Calc Est GFR (MDRD) Af Amer Est GFR (MDRD) Non-Af BUN/Creatinine Ratio Glucose Hemoglobin A1c Calcium Urine Color Yellow Urine Clarity Clear Urine pH 6.0 Ur Specific [place] 1.015 Urine Protein 100 H Urine Glucose (UA) 50 H Urine Ketones Negative Urine Occult Blood 25 H Urine Nitrite Negative Urine Bilirubin Negative Urine Urobilinogen Normal Ur Leukocyte Esterase Negative Urine RBC 0-5 SEEN Urine WBC 0-5 SEEN Ur Squamous Epith Cells 0 SEEN Urine Bacteria 0 SEEN Hyaline Casts 10-25 SEEN Urine Mucus 0 SEEN U Random Total Protein 133.9 H Urine Creatinine 49.00 Protein/Creatinin Ratio 2733 H 10/14/17 10/14/17 06:20 06:20 WBC RBC Hgb Hct MCV MCH MCHC RDW RDW Differential Plt Count MPV Sodium 145 Potassium 4.5 Chloride 107 Carbon Dioxide 30.0 Anion Gap 8 BUN 44 H Creatinine 1.46 H Estim Creat Clear Calc 38.24 Est GFR (MDRD) Af Amer 46 L Est GFR (MDRD) Non-Af 38 L BUN/Creatinine Ratio 30.1 H Glucose 150 H Hemoglobin A1c Pending Calcium 7.9 L Urine Color Urine Clarity Urine pH Ur Specific [place] Urine Protein Urine Glucose (UA) Urine Ketones Urine Occult Blood Urine Nitrite Urine Bilirubin Urine Urobilinogen Ur Leukocyte Esterase Urine RBC Urine WBC Ur Squamous Epith Cells Urine Bacteria Hyaline Casts Urine Mucus U Random Total Protein Urine Creatinine Protein/Creatinin Ratio POC Glucose 10/14/17 10/14/17 10/13/17 07:01 05:57 23:04 POC Glucose 148 H 147 H 107 10/13/17 10/13/17 10/13/17 22:48 22:23 16:32 POC Glucose 86 75 146 H 10/13/17 12:07 POC Glucose 212 H Medical Necessity - Tobacco Use Smoking Status: Former smoker Tobacco Use: Non-smoker Assessment/Plan 1. Acute kidney injury creatinine 1.2 progressed 1.5 on increased doses of Lasix, Cozaar, spironolactone likely hemodynamic. Cozaar and spironolactone on hold. Creatinine slightly improved today. Continue with iv lasix. kidney ultrasound no hydro. 2. Acute on chronic CHF. Continue with IV diuretics. 3. Aortic stenosis moderate may be contributing to CHF 4. Hypertension stable 5. Diabetes mellitus type 2 with proteinuria likely due to diabetic nephropathy. Resume Cozaar when renal fxn back to [place]. 6. NSTEMI with positive troponin. Cardiology following. 7. Lower extremity edema, lymphedema suspect due to pulmonary hypertension, possible diastolic HF 8. Obstructive airway disease, hypoventilatory state with elevated carbon dioxide on blood gas on day of admission. May have obstructive apnea. 9. Morbid obesity 10 check vit d
[2017-10-14] MEDS: Pantoprazole Sodium 40 MG Tablet PO ×2 (09:44→23:30)
[2017-10-14] MEDS: amLODIPine 5 MG Tablet PO (09:44)
[2017-10-14] MEDS: Clopidogrel Bisulfate 75 MG Tablet PO (09:44)
[2017-10-14] MEDS: Metoprolol Tartrate 100 MG Tablet PO ×2 (09:44→23:31)
[2017-10-14] MEDS: Isosorbide Mononitrate 30 MG Tablet PO (09:45)
--- NOTE | 2017-10-14 10:49 | NURSING ---
Removed CARLOS A wraps and dressings from bilateral lower legs. no open areas noted. minimal edema noted. legs much improved from the last few admissions. still a few areas of dry, flaky skin. washed legs and feet with soap and water and patted dry. applied Eucerin as ordered. weaved Aquacel AG ribbon between toes. wrapped legs with kerlix followed by CARLOS A wraps from the base of the toes to just below the knees. Pt tolerated well. legs are elevated in the recliner chair.
[2017-10-14 11:31] LABS: Bedside Glucose 230 mg/dL (70-110)
--- NOTE | 2017-10-14 11:44 | NURSING ---
photo: right lower leg
--- NOTE | 2017-10-14 11:45 | NURSING ---
photo: left lower leg
--- NOTE | 2017-10-14 12:56 | PN_ITS ---
Subjective: Patient seen and examined. Denies further shortness of breath at rest. States she is able to lie flat part of the night to sleep without shortness of breath. Discussed with patient SNF at discharge and she states she is thinking about it. Denies other current complaints. - Physical Exam General: Alert, Oriented x3, Cooperative HEENT: Atraumatic, PERRLA, EOMI, Normocephalic Neck: Supple, No JVD, Negative Carotid Bruits Lungs: Diminished, Rales Cardiovascular: Regular rate, Regular Rhythm, Normal S1, Normal S2, Murmur Abdomen: Bowel Sounds Present, Soft, Non Tender, Non-Distended Extremities: No clubbing, No cyanosis, No edema, Capillary Refill Less than 3 Seconds Skin: - - Bilateral lower extremity lymphedema with severe maceration. Musculoskeletal: No Tenderness to Palpation of Joints or Extremities Neurological: Cranial nerves II-XII grossly intact, Neuro grossly intact Psych/Mental Status: Normal Affect, Appropriate Vital Signs Temp Pulse Resp BP Pulse Ox 96.9 F L 64 18 143/93 H 92 10/14/17 09:45 10/14/17 11:01 10/14/17 09:45 10/14/17 09:45 10/14/17 09:45 Oxygen Flow Rate (L/min) 4 Oxygen Delivery Method Nasal Cannula Weight: 100.4 kg Body Mass Index (BMI) 34.0 Intake and Output for Last 24 Hours 10/12/17 10/13/17 10/14/17 23:59 23:59 23:59 Intake Total 1145 / 1145 720 / 720 Output Total 900 / 900 2775 / 2775 1000 / 1000 Balance -900 / -900 -1630 / -1630 -280 / -280 Laboratory Tests Past 24 Hrs 10/13/17 10/13/17 10/14/17 16:50 16:50 06:20 WBC 7.4 RBC 3.58 L Hgb 10.6 L Hct 34.5 L MCV 96.4 MCH 29.6 MCHC 30.7 L RDW 16.0 H RDW Differential 54.2 H Plt Count 116 L MPV 10.2 Sodium Potassium Chloride Carbon Dioxide Anion Gap BUN Creatinine Estim Creat Clear Calc Est GFR (MDRD) Af Amer Est GFR (MDRD) Non-Af BUN/Creatinine Ratio Glucose Hemoglobin A1c Calcium Urine Color Yellow Urine Clarity Clear Urine pH 6.0 Ur Specific [place] 1.015 Urine Protein 100 H Urine Glucose (UA) 50 H Urine Ketones Negative Urine Occult Blood 25 H Urine Nitrite Negative Urine Bilirubin Negative Urine Urobilinogen Normal Ur Leukocyte Esterase Negative Urine RBC 0-5 SEEN Urine WBC 0-5 SEEN Ur Squamous Epith Cells 0 SEEN Urine Bacteria 0 SEEN Hyaline Casts 10-25 SEEN Urine Mucus 0 SEEN U Random Total Protein 133.9 H Urine Creatinine 49.00 Protein/Creatinin Ratio 2733 H 10/14/17 10/14/17 06:20 06:20 WBC RBC Hgb Hct MCV MCH MCHC RDW RDW Differential Plt Count MPV Sodium 145 Potassium 4.5 Chloride 107 Carbon Dioxide 30.0 Anion Gap 8 BUN 44 H Creatinine 1.46 H Estim Creat Clear Calc 38.24 Est GFR (MDRD) Af Amer 46 L Est GFR (MDRD) Non-Af 38 L BUN/Creatinine Ratio 30.1 H Glucose 150 H Hemoglobin A1c 6.0 Calcium 7.9 L Urine Color Urine Clarity Urine pH Ur Specific [place] Urine Protein Urine Glucose (UA) Urine Ketones Urine Occult Blood Urine Nitrite Urine Bilirubin Urine Urobilinogen Ur Leukocyte Esterase Urine RBC Urine WBC Ur Squamous Epith Cells Urine Bacteria Hyaline Casts Urine Mucus U Random Total Protein Urine Creatinine Protein/Creatinin Ratio POC Glucose 10/14/17 10/14/17 10/14/17 11:18 07:01 05:57 POC Glucose 230 H 148 H 147 H 10/13/17 10/13/17 10/13/17 23:04 22:48 22:23 POC Glucose 107 86 75 10/13/17 16:32 POC Glucose 146 H Medical Necessity - Tobacco Use Smoking Status: Former smoker Tobacco Use: Non-smoker Assessment/Plan Patient is a 66-year-old female admitted 10/08/17 due to shortness of breath. She has a past medical history of CAD status post CABG in May 2008, CHF, chronic hypoxic respiratory failure requiring supplemental oxygen at night, bilateral lower extremity lymphedema, type 2 diabetes mellitus, hyperlipidemia, hypertension, chronic kidney disease stage III, GERD, obesity. 1. Acute on chronic hypoxic respiratory failure secondary to acute on chronic diastolic CHF-echocardiogram March 2016 showed an EF of 65%, pulmonary artery systolic pressure 59 mmHg, moderate pulmonary hypertension, mild aortic stenosis. Repeat echocardiogram showed an EF of 55-60%, pulmonary artery systolic pressure 62 mmHg, moderate aortic stenosis with mean aortic valve gradient 23 mmHg. Chest x-ray on admission shows progression of CHF with bibasilar atelectasis and small bilateral pleural effusions. Continue IV Lasix 40 mg Q8HR. Continue metoprolol. Continue supplemental oxygen to maintain O2 at or above 90%. Patient requires 3 L nasal cannula at baseline. 2. NSTEMI-cardiology consulted. Continue aspirin, Plavix, beta blockers. Patient attempted cardiac catheterization 10/13/17 but became short of breath. Will be reattempted after further diuresis. 3. KIM on Chronic kidney disease stage III-creatinine 1.2-1.3 at baseline. Nephrology following. Cozaar and spironolactone on hold. Renal ultrasound showed normal ultrasound of the kidneys and urinary bladder. 4. Bilateral lower extremity lymphedema-bilateral lower extremities severely macerated. Continue dressing changes with Aquacel Ag, cover with dry dressings and wrapped with Kerlix. Patient had recent lower extremity arterial study 09/23 which showed normal arterial perfusion bilaterally. Continue outpatient follow-up with wound center and home health at discharge. 5. Type 2 diabetes mellitus-Hemoglobin A1c 6.1%. Continue home insulin regimen. 6. Hyperlipidemia-continue statin. 7. Hypertension-stable, continue home regimen. 8. CAD-status post CABG in May 2008. Continue aspirin, statin, metoprolol , Imdur. 9. GERD-continue PPI. 10. Obesity-encouraged diet and lifestyle modifications. DVT prophylaxis-Lovenox subcu. Discharge planning- Possible SNF at discharge if patient is agreeable. This patient was seen by MICHAELA Ohara under the supervision of Dr. Talamantes.
[2017-10-14] MEDS: 0.9% NaCl Peripheral Flush Adult/Peds IV ×2 (13:18→20:00)
[2017-10-14 16:30] LABS: Bedside Glucose 115 mg/dL (70-110)
--- NOTE | 2017-10-14 18:06 | NURSING ---
all patient care, documentation, and medication administration by Ochoa Have, student nurse, done under the supervision of this RN.
[2017-10-14 22:46] LABS: Bedside Glucose 118 mg/dL (70-110)
--- NOTE | 2017-10-14 23:18 | NURSING ---
Computer not working in room even after restarting. [employer] called to bring computer on wheels. 2200 meds late d/t this.
[2017-10-14] MEDS: Montelukast 10 MG Tablet PO (23:30)
[2017-10-15] VITALS (23 sets, daily range): BP systolic 119–142; BP diastolic 48–71; PULSE 58–78; RESP 16–24; TEMP 35.7–36.9; O2SAT 89–96
[2017-10-15] MEDS: Metoprolol Tartrate 100 MG Tablet PO ×2 (05:40→21:50)
[2017-10-15] MEDS: amLODIPine 5 MG Tablet PO (05:40)
[2017-10-15] MEDS: Clopidogrel Bisulfate 75 MG Tablet PO (05:40)
[2017-10-15] MEDS: Isosorbide Mononitrate 30 MG Tablet PO (05:41)
[2017-10-15] MEDS: Aspirin 81 MG TAB.CHEW PO (05:41)
--- NOTE | 2017-10-15 05:55 | EKG12_ITS ---
Test Reason : HEART CATH Blood Pressure : / mmHG Vent. Rate : 064 BPM Atrial Rate : 064 BPM P-R Int : 126 ms QRS Dur : 076 ms QT Int : 380 ms P-R-T Axes : 029 024 206 degrees QTc Int : 392 ms Sinus rhythm with Premature atrial complexes ST & T wave abnormality, consider inferior ischemia ST & T wave abnormality, consider anterolateral ischemia Abnormal ECG Confirmed by VIOLETTE CHANCE, VIKTOR ([id number]), telegraph editor PROMISE DICKINSON ([id number]) on 10/16/2017 1:24:21 PM Referred By: DR MORRISON Confirmed By:VIKTOR OAKES MD
[2017-10-15 06:44] LABS: Hematocrit 33.2 % (37-47); Hemoglobin 10.1 g/dl (12.0-15.0); Mean Corp Hgb Conc 30.4 g/gl (32-36); Mean Corpuscular Hgb 28.7 pg (27.0-32.0); Mean Corpuscular Volume 94.3 fL (81-99); Mean Platelet Vol. 10.2 fl (6.2-12.0); Platelet Count 136 K/mm3 (150-450); RBC Distribution Width CV 16.3 % (11.6-14.6); RBC Distribution Width SD 55.9 fl (35.1-43.9); Red Blood Count 3.52 M/mm3 (4.2-5.4); White Blood Count 8.5 K/mm3 (4.4-11.0)
[2017-10-15 06:45] LABS: Scan Indicated on CBC? Y/N NO
[2017-10-15 06:47] LABS: International Normalized Ratio 1.1; Prothrombin Time (Protime)PT. 14.2 SECONDS (11.7-14.9)
[2017-10-15 06:48] LABS: Partial Thromboplast Time 37.7 Seconds (24.1-36.2)
[2017-10-15 06:53] LABS: Albumin, Serum 2.6 g/dL (3.2-5.0); BUN 49 mg/dL (7-18); BUN/Creat Ratio 33.6 RATIO (10-20); Calcium,Total 7.8 mg/dL (8.5-10.1); Chloride 106 mmol/L (98-107); Creatinine, Serum 1.46 mg/dL (0.55-1.02); EST Glomerular Filtration Rate 38 mL/min (>60); Est Glom Filt Rate - Afr Amer 46 mL/min (>60); Estimated Creatinine Clearance 38.24 ml/min; Glucose 149 mg/dL (74-106); Phosphorus 3.6 mg/dL (2.5-4.9); Potassium 4.4 mmol/L (3.5-5.1); Sodium Level 144 mmol/L (136-145)
[2017-10-15 06:56] LABS: Bedside Glucose 143 mg/dL (70-110)
--- NOTE | 2017-10-15 07:18 | NURSING ---
Called report to Teo in [facility] at this time
--- NOTE | 2017-10-15 08:37 | PN.CARD_ITS ---
Subjectve: Patient seen and evaluated. Objective: Vital Signs Temp Pulse Resp BP Pulse Ox 98 F 61 16 125/48 H 94 10/15/17 05:37 10/15/17 06:53 10/15/17 05:37 10/15/17 05:40 10/15/17 05:37 Oxygen Flow Rate (L/min) 3.5 Oxygen Delivery Method Nasal Cannula Weight: 224 lb 6.889 oz Body Mass Index (BMI) 34.0 Intake and Output for Last 24 Hours 10/13/17 10/14/17 10/15/17 23:59 23:59 23:59 Intake Total 1145 / 1145 1680 / 1680 Output Total 2775 / 2775 1999 / 1999 800 / 800 Balance -1630 / -1630 -320 / -320 -800 / -800 General: Awake, Alert, Oriented x 3 HEENT: PERRL, EOMI, Sclera Non Icteric Neck: Supple, Good ROM, No Lymph Node Enlargement Lungs: Clear to auscultation Cardiovascular: Regular Rhythm, Normal S1, Normal S2, No Rubs, No Gallops Murmur Murmur: Grade 2/6, Early Systolic, LLSB Vascular: No Carotid Bruits, Normal Femoral Pulses, Normal Radial Pulses, Normal Dorsalis Pedal Pulse, Normal Posterior Tibial Pulses Abdomen: Bowel Sounds Present, Soft, Non Tender, No HSM, No Organomegaly Extremities: No Cyanosis, No Clubbing, Bilateral Edema +2 Neurological: No Focal Motor or Sensory Deficit 10/14/17 06:20: Hemoglobin A1c 6.0 10/15/17 06:15: Sodium 144, Potassium 4.4, Chloride 106, Carbon Dioxide 31.0, BUN 49 H, Creatinine 1.46 H, Est GFR (MDRD) Af Amer 46 L, Est GFR (MDRD) Non-Af 38 L, BUN/Creatinine Ratio 33.6 H, Glucose 149 H, Calcium 7.8 L, Phosphorus 3.6 10/15/17 06:15: WBC 8.5, RBC 3.52 L, Hgb 10.1 L, Hct 33.2 L, MCV 94.3, MCH 28.7 , MCHC 30.4 L, RDW 16.3 H, RDW Differential 55.9 H, Plt Count 136 L, MPV 10.2 10/15/17 06:15: PT 14.2, INR 1.1, APTT 37.7 H Rhythm: EKG: ECHO: Stress Test: Cardiac Cath: PCI: CT Surgery: Holter monitor: EPS: PPM: CXR: Chest CT Scan: Medical Necessity - Tobacco Use Smoking Status: Former smoker Tobacco Use: Non-smoker Assessment/Plan 1. Non-ST elevation myocardial infarction. Patient does have evidence of coronary artery disease and presents with hypoxia and is noted to have EKG changes with non-ST elevation myocardial infarction. It may be prudent to reassess her coronary anatomy to help guide therapy. Perhaps ischemia may be contributing to some of her recurrent admissions with congestive heart failure. Her cardiac catheterization today demonstrated a left main coronary artery with 40-50% distal stenosis Left anterior descending artery with high-grade mid stenotic lesion. Left circumflex artery which is totally occluded. Right coronary artery with 50% mid segment stenosis. Saphenous vein graft to the right coronary artery which is patent. Saphenous vein graft to circumflex artery which is totally occluded. Left internal mammary artery to the left anterior descending artery which is patent. Based on the above angiographic findings the patient will be continued on aggressive medical therapy. 2. Aortic valvular disease. She does have a history of moderate aortic stenosis with a valve mean gradient of 23 mmHg. Due to her body habitus it has been difficult to quantify exactly the extent of aortic stenosis. At this time however It does not appear to be severe. 3. Pulmonary hypertension Her pulmonary hypertension is likely secondary to aortic valve disease as well as diastolic dysfunction. The right heart catheterization demonstrated severe pulmonary hypertension with right heart pressures noted to be approximately 77 mmHg. Would recommend continued evaluation by pulmonary service. 4. Hypertension Her blood pressure is still elevated and the plan would be to continue with aggressive blood pressure medication including beta apryl Norvasc and ARB. 5. Risk factor modification She would need to continue with aggressive therapy with aspirin and statin as well as weight loss. 6. Congestive heart failure-acute diastolic She appears to have diastolic heart failure it is undergoing diuresis. She was also seen by the renal service yesterday at this time will continue her beta- apryl and hold off on her ARB as well as spironolactone. Thank you for allowing me to participate in the care of your patient. Please don't hesitate to call if any issues arise
--- NOTE | 2017-10-15 08:56 | CL.D_ITS ---
Patient Name: MARLON CORRIGAN Study Date: 10/15/2017 Performing: Tate Leslie MD Ht: 68.11 inches 173 cm : 1950 Wt: 220.46 lbs 100 kg Age: 66 Gender: female BSA: 2.13 PROCEDURE(S) PERFORMED [id number]/COR/CABG CLINICAL PROFILE AND INDICATIONS Indications: Valvular Disease, Other Heart Failure: NYHA Class: 3, Newly Diagnosed: No, Heart Failure Type: Diastolic Stress/Imaging Stress/Image Study Performed: No CONCLUSIONS Lumbee vessel coronary artery disease with patent left internal mammary artery to the left anterior d escending artery and saphenous vein graft to the right coronary artery. The saphenous vein graft to the circumflex artery is occluded. Moderate Aortic stenosis RECOMMENDATIONS Medical therapy DESCRIPTION OF PROCEDURE The patient arrived to the procedure lab. The risks and benefits of the procedure as well as a full d escription of our services here and current unavailability of surgical backup were fully explained to the patient and/or their significant other prior to the catheterization. The Timeout was completed, verifying the correct patient and procedure. The patient's procedural site was prepped and draped in the usual fashion. Local anesthetic was given subcutaneously to right groin region with Lidocaine 2%. Using a modified Seldinger technique, arterial access was obtained via the right femoral artery, a 5 Fr sheath was inserted. Venous access was obtained via the right femoral vein, a 7Fr sheath was inser basilio. A 7Fr thermal dilution catheter was inserted and right heart pressures were recorded, it was the n advanced to PA position for cardiac outputs. Thermal dilution cardiac outputs were then recorded. O 2 saturations were then obtained. The Thermal dilution catheter was then removed. Left Coronary Arter y selective angiography was performed in multiple views using a 5 Fr. JL4 catheter. Right Coronary Ar salvador selective angiography was then performed in multiple views using a 5 Fr. 3DRC ([place]) cathete r. Saphenous Vein graft to the RCA selective angiography was performed in multiple views using a 5 Fr . 3DRC ([place]) catheter. Saphenous Vein graft to the Circumflex selective angiography was performe d in multiple views using a 5 Fr. 3DRC ([place]) catheter. Left internal mammary artery graft to the LAD selective angiography was performed in multiple views using a 5 Fr. IM catheter.The arterial she ath was pulled and manual compression applied until hemostasis is achieved.. The venous sheath was th en pulled and manual compression applied until hemostasis achieved CORONARY ANGIOGRAPHY DOMINANCE: Right Dominant LEFT HEART ASSESSMENT Left Ventricular Ejection Fraction: by Echo 55 % Normal LV wall motion RIGHT HEART ASSESSMENT Thermal CO: 3.06 Thermal CI: 1.44 Nancy CO: 5.57 Nancy CI: 2.62 PW: 30/49 30 PA: 77/21 42 RV: 68/8 19 RA: 18 18 PVR: 314 SVR: 1804 Right Heart pressures - elevated Pulmonary Hypertension Severe LEFT MAIN: 40-50 % Stenosis LEFT ANTERIOR DECENDING ARTERY: MID LAD: Moderate luminal irregularities up to 50% DIAGONAL 1: Proximal - Previously placed stent is patent CIRCUMFLEX ARTERY: Mild luminal irregularities less than 30% RIGHT CORONARY ARTERY: PROX RCA: 50 % Stenosis MID RCA: 40 % Stenosis GRAFTS: STORY graft to the Mid LAD is patent Saphenous Vein graft to the CIRC is totally occluded Saphenous Vein graft to the Distal RCA is patent VALVE FINDINGS: Aortic Valve not assessed COMPLICATIONS No Complications PROCEDURE MEDICATIONS Oxygen: 8 L/min via nasal cannula Lasix 80 mg IV 10/15/2017 08:17:40 SUMMARY OF HEMODYNAMIC DATA Time AIR REST ECG 07:54:43 RA (18) SV 08:00:31 RA (18) 08:01:05 RV 68/8, 19 08:01:24 PW 30/49 (30) PV 08:02:14 PA 77/21 (42) PA 08:02:38 PA 77/23 (45) 08:05:38 RV 69/21, 31 08:05:55 RA / (19) 08:06:13 AO 146/58 (87) SA 08:08:14 Type SV CO (l/m) CI (l/m/ HR Time AIR REST Thermal 47.80 3.06 1.44 64 07:54:43 Nancy 87.00 5.57 2.62 64 07:54:43 Label % O2 Pres/Loc Time AIR REST PA 43 PA 08:12:00 RA 45 SV 08:12:05 FA 82 PV 08:12:15 Signed By Tate Leslie MD On 10/15/2017 08:55:18 Tate Leslie MD
[2017-10-15 09:01] LABS: Blood Gas Specimen Type VEN; VBG BASE EXCESS 4 mmol/L (-1.0-3.5); VBG Bicarbonate 30 mmol/L (22-26); VBG Oxygen Content 31 mmol/L (23-33); VBG PO2 26 mmHg (25-40); VBG SO2 45 % (50-70); VBG pCO2 51.7 mmHg (41-51); VBG pH 7.37 (7.32-7.42)
[2017-10-15 09:01] LABS: Base Excess 3 mmol/L (-2 to +2); Bicarbonate 28.1 mmol/L (22-26); Blood Gas Specimen Type ART; PO2 48 mmHG (75-100); SO2 82 % (95-99); Total Carbon Dioxide 29 mmol/L; pCO2 46.2 mmHg (35-45); pH 7.39 (7.35-7.45)
[2017-10-15 09:01] LABS: Blood Gas Specimen Type VEN; VBG BASE EXCESS 5 mmol/L (-1.0-3.5); VBG Bicarbonate 30 mmol/L (22-26); VBG Oxygen Content 32 mmol/L (23-33); VBG PO2 26 mmHg (25-40); VBG SO2 43 % (50-70); VBG pCO2 52.9 mmHg (41-51); VBG pH 7.36 (7.32-7.42)
--- NOTE | 2017-10-15 09:29 | NURSING ---
Tertiary facilities for [facility]: [facility], [facility], [place], [facility], [facility], [facility], [facility], [facility], [place], [place] NELA Vega
--- NOTE | 2017-10-15 10:03 | CASEMGMT ---
Addendum entered by Nanette Campos 10/15/17 15:12: Social Work Phone call from [facility] and they do not have beds available for pt but pt could go to [facility]. Met with pt and informed of above. Pt does not wish to go to [facility] but is interested in [facility]. Message left with Heather at [facility] and will await return call for bed availability. AYDIN Lloyd Original Note: Social Work Met with pt in room and introduce self and role of SW. Discussed discharge options with pt including SNF placement. Pt states she was at [facility] previously and she would consider this again. Pt does not commit to SNF placement but states she will think about it. Pt is agreeable to SW contacting [facility] for bed availability and pt will consider going and will make decision by this afternoon. Phone call to Vicky at [facility] and they will have a bed available tomorrow. Clinical information faxed to determine if they can accept pt. SW will followup with pt later today. AYDIN Lloyd
[2017-10-15] MEDS: Pantoprazole Sodium 40 MG Tablet PO ×2 (10:32→21:51)
[2017-10-15] MEDS: Gabapentin 100 MG Capsule PO ×2 (10:33→17:33)
[2017-10-15] MEDS: Ferrous Gluconate 325 MG Tablet PO (10:33)
[2017-10-15] MEDS: Isosorbide Mononitrate 60 MG Tablet PO (10:41)
[2017-10-15] MEDS: Sucralfate 1 GM Tablet PO ×3 (12:07→21:47)
[2017-10-15] MEDS: Glucerna Shake 120 ML LIQUID PO ×2 (12:09→17:33)
--- NOTE | 2017-10-15 12:27 | PCM.PROGNOTE ---
Subjective: Reviewed the results of the cardiac catheterization done today and medical management is recommended. The vein graft to the circumflex is completely occluded. She has been afebrile since admission. Vital signs are stable. She is 91-96% saturated on a 4-1/2 L nasal cannula. Fluid balance since admission is -2930. He took in 1680 cc on 10/14/2017 and put out 2000 cc of urine. All lab was personally reviewed. White blood cell count is normal at 8.5 today. She denies shortness of breath today and told me that she laid flat last night and was able to sleep. She denies chest pain. She has no nausea and her appetite is good. - Physical Exam General: Alert, Oriented x3, Cooperative, No apparent distress, Well developed, Well nourished HEENT: Atraumatic, PERRLA, EOMI Oral: Moist Mucosa Neck: Supple, Trachea Midline Lungs: Clear to auscultation Cardiovascular: Regular rate, Regular Rhythm, Normal S1, Normal S2, Murmur - she has a ROBERTA at the second right intercostal space with radiation to the left ventricular outflow tract, lower left sternal border, apex and into the left axilla., No rub noted, No Gallop Abdomen: Bowel Sounds Present, Soft, Non Tender, Non-Distended, Obese Extremities: No clubbing, No cyanosis, Edema - much improved. Her legs are wrinkled. there is a lot of dry skin but no open wounds and no further serous drainage. Skin: - Neurological: Cranial nerves II-XII grossly intact, Neuro grossly intact Psych/Mental Status: Appropriate Vital Signs Temp Pulse Resp BP Pulse Ox 96.3 F L 63 18 131/65 H 96 10/15/17 12:00 10/15/17 12:00 10/15/17 12:00 10/15/17 12:00 10/15/17 12:00 Oxygen Flow Rate (L/min) 4.5 Oxygen Delivery Method Nasal Cannula Weight: 224 lb 6.889 oz Body Mass Index (BMI) 34.0 Intake and Output for Last 24 Hours 10/13/17 10/14/17 10/15/17 23:59 23:59 23:59 Intake Total 1145 / 1145 1680 / 1680 720 / 720 Output Total 2775 / 2775 1999 800 / 800 Balance -1630 / -1630 -320 / -320 -80 / -80 Microbiology Past 72 Hours 10/13/17 16:50 Urine Culture - Preliminary Urine, Catheterized Culture exhibits no growth. Laboratory Tests Past 24 Hrs 10/15/17 10/15/17 10/15/17 06:15 06:15 06:15 WBC 8.5 RBC 3.52 L Hgb 10.1 L Hct 33.2 L MCV 94.3 MCH 28.7 MCHC 30.4 L RDW 16.3 H RDW Differential 55.9 H Plt Count 136 L MPV 10.2 PT 14.2 INR 1.1 APTT 37.7 H Specimen Type pH Bicarbonate Actual POC Total CO2 Base Excess O2 Saturation ABG pCO2 ABG pO2 VBG pH VBG pO2 VBG O2 Sat (Calc) VBG O2 Content VBG Base Excess POC Mix VBG pCO2 Pt Tmp Sodium 144 Potassium 4.4 Chloride 106 Carbon Dioxide 31.0 BUN 49 H Creatinine 1.46 H Estim Creat Clear Calc 38.24 Est GFR (MDRD) Af Amer 46 L Est GFR (MDRD) Non-Af 38 L BUN/Creatinine Ratio 33.6 H Glucose 149 H Calcium 7.8 L Phosphorus 3.6 Albumin 2.6 L Vitamin D 25-Hydroxy 10/15/17 10/15/17 10/15/17 08:03 08:06 08:10 WBC RBC Hgb Hct MCV MCH MCHC RDW RDW Differential Plt Count MPV PT INR APTT Specimen Type ART ROB ROB pH 7.39 Bicarbonate Actual 28.1 H POC Total CO2 29 Base Excess 3 H O2 Saturation 82 L ABG pCO2 46.2 H ABG pO2 48 L VBG pH 7.36 7.37 VBG pO2 26 26 VBG O2 Sat (Calc) 43 L 45 L VBG O2 Content 32 31 VBG Base Excess 5 H 4 H POC Mix VBG pCO2 Pt Tmp 52.9 H 51.7 H Sodium Potassium Chloride Carbon Dioxide BUN Creatinine Estim Creat Clear Calc Est GFR (MDRD) Af Amer Est GFR (MDRD) Non-Af BUN/Creatinine Ratio Glucose Calcium Phosphorus Albumin Vitamin D 25-Hydroxy 10/15/17 09:10 WBC RBC Hgb Hct MCV MCH MCHC RDW RDW Differential Plt Count MPV PT INR APTT Specimen Type pH Bicarbonate Actual POC Total CO2 Base Excess O2 Saturation ABG pCO2 ABG pO2 VBG pH VBG pO2 VBG O2 Sat (Calc) VBG O2 Content VBG Base Excess POC Mix VBG pCO2 Pt Tmp Sodium Potassium Chloride Carbon Dioxide BUN Creatinine Estim Creat Clear Calc Est GFR (MDRD) Af Amer Est GFR (MDRD) Non-Af BUN/Creatinine Ratio Glucose Calcium Phosphorus Albumin Vitamin D 25-Hydroxy Pending POC Glucose 10/15/17 10/14/17 10/14/17 06:49 22:14 16:23 POC Glucose 143 H 118 H 115 H Medical Necessity - Tobacco Use Smoking Status: Former smoker Tobacco Use: Non-smoker Assessment/Plan Impressions 1. Acute on chronic diastolic congestive heart failure 2. NSTEMI 3. Acute on chronic renal failure stage III 4. Maceration of both lower extremities secondary to serous drainage/lymphedema 5. hirsutism 6. DM II 7. HTN 8. CAD 9. GERD 10 obesity 11. thrombocytopenia 12. N/N anemia 13. moderate 14. Pulmonary HTN 15. diastolic dysfunction continue medical management Stressed the importance of salt restriction convert to PO Lasix Recheck the lab in the AM and if the creat is stable will DC.....she is considering SNF at [place]. Code Visit Inpatient E&M: 33614 Subs Hosp L2
--- NOTE | 2017-10-15 14:00 | NURSING ---
Ambulated pt post heart cath bedrest. No bleeding noted. Site remains soft, dressing C/D/I.
--- NOTE | 2017-10-15 14:57 | NURSING ---
Removed dressings and CARLOS A wraps. washed legs and feet with soap and water. was able to remove more dry flaky skin. Dr Talamantes in to assess wounds. Eucerin appliance. legs and feet wrapped with kerlix followed by CARLOS A wraps from the base of the toes to just below the knees. did place 2x2's between toes. Pt tolerated well.
[2017-10-15 15:36] LABS: Bedside Glucose 198 mg/dL (70-110)
[2017-10-15] MEDS: Enoxaparin 100 MG/ML Syringe SC (17:34)
--- NOTE | 2017-10-15 17:46 | NURSING ---
patient care, medication administration, & documentation by Ochoa Granados, student nurse, done under the supervision of this RN.
[2017-10-15 21:35] LABS: Bedside Glucose 224 mg/dL (70-110)
[2017-10-15] MEDS: Furosemide 40 MG/4 ML Vial IV (21:49)
[2017-10-15] MEDS: Montelukast 10 MG Tablet PO (21:51)
[2017-10-15] MEDS: 0.9% NaCl Peripheral Flush Adult/Peds IV (21:51)
[2017-10-16] VITALS (11 sets, daily range): BP systolic 127–132; BP diastolic 49–54; PULSE 56–71; RESP 14–19; TEMP 36.1–36.9; O2SAT 93–97
[2017-10-16 00:51] LABS: Bedside Glucose 142 mg/dL (70-110)
[2017-10-16] MEDS: Enoxaparin 100 MG/ML Syringe SC (06:01)
[2017-10-16] MEDS: Sucralfate 1 GM Tablet PO ×3 (06:01→16:27)
[2017-10-16] MEDS: 0.9% NaCl Peripheral Flush Adult/Peds IV ×2 (06:02→14:38)
[2017-10-16] MEDS: Furosemide 40 MG/4 ML Vial IV ×2 (06:02→14:38)
[2017-10-16 06:58] LABS: Albumin, Serum 2.6 g/dL (3.2-5.0); BUN 53 mg/dL (7-18); BUN/Creat Ratio 33.1 RATIO (10-20); Calcium,Total 7.5 mg/dL (8.5-10.1); Chloride 106 mmol/L (98-107); EST Glomerular Filtration Rate 34 mL/min (>60); Est Glom Filt Rate - Afr Amer 41 mL/min (>60); Estimated Creatinine Clearance 34.89 ml/min; Glucose 128 mg/dL (74-106); Phosphorus 3.9 mg/dL (2.5-4.9); Potassium 4.3 mmol/L (3.5-5.1); Sodium Level 144 mmol/L (136-145)
[2017-10-16 07:01] LABS: Bedside Glucose 135 mg/dL (70-110)
[2017-10-16] MEDS: Clopidogrel Bisulfate 75 MG Tablet PO (08:50)
[2017-10-16] MEDS: Aspirin 81 MG TAB.CHEW PO (08:50)
[2017-10-16] MEDS: amLODIPine 5 MG Tablet PO (08:50)
[2017-10-16] MEDS: Isosorbide Mononitrate 60 MG Tablet PO (08:50)
[2017-10-16] MEDS: Pantoprazole Sodium 40 MG Tablet PO (08:51)
[2017-10-16] MEDS: Ferrous Gluconate 325 MG Tablet PO (08:51)
[2017-10-16] MEDS: Gabapentin 100 MG Capsule PO ×2 (08:51→16:28)
[2017-10-16] MEDS: Glucerna Shake 120 ML LIQUID PO ×3 (08:53→16:27)
[2017-10-16] MEDS: Metoprolol Tartrate 100 MG Tablet PO (08:55)
--- NOTE | 2017-10-16 10:02 | CASEMGMT ---
TRI called [facility] and spoke with Heather. They do have beds available. TRI faxed the referral and asked her to let TRI know as soon as possible. Milady KELLY MSW
[2017-10-16 10:06] LABS: Vitamin D,25 Hydroxy 48.5 ng/mL (29.95-100.01)
--- NOTE | 2017-10-16 11:55 | PCM.PN.REN ---
Subjective: s/p heart cath yesterday. Creatinine slightly increased today. Denied CP, SOB. Edema improving on lasix. - Physical Exam General: Alert, Oriented x3, Cooperative Neck: Supple Lungs: Clear to auscultation Cardiovascular: Regular rate Abdomen: Bowel Sounds Present, Soft, Non Tender, Distended, Obese Extremities: Edema - Bilateral lower extremity, wrapped Skin: Ulcer/ Wound - Bilateral lower extremities, venous stasis ulcers Musculoskeletal: No Muscle Wasting Neurological: Cranial nerves II-XII grossly intact Psych/Mental Status: Normal Affect, Alert and oriented to time, place, person, mood and affect Vital Signs Temp Pulse Resp BP Pulse Ox 96.9 F L 56 L 19 H 131/50 H 97 10/16/17 08:56 10/16/17 11:04 10/16/17 08:56 10/16/17 08:56 10/16/17 08:56 Oxygen Flow Rate (L/min) 2 Oxygen Delivery Method Nasal Cannula Weight: 101.8 kg Body Mass Index (BMI) 34.0 Intake and Output for Last 24 Hours 10/14/17 10/15/17 10/16/17 23:59 23:59 23:59 Intake Total 1680 / 1680 1920 / 1920 740 / 740 Output Total 1999 / 1999 1100 / 1100 900 / 900 Balance -320 / -320 820 / 820 -160 / -160 Microbiology Past 72 Hours 10/13/17 16:50 Urine Culture - Final Urine, Catheterized Culture exhibits no growth. Laboratory Tests Past 24 Hrs 10/15/17 10/16/17 09:10 06:14 Sodium 144 Potassium 4.3 Chloride 106 Carbon Dioxide 32.0 BUN 53 H Creatinine 1.60 H Estim Creat Clear Calc 34.89 Est GFR (MDRD) Af Amer 41 L Est GFR (MDRD) Non-Af 34 L BUN/Creatinine Ratio 33.1 H Glucose 128 H Calcium 7.5 L Phosphorus 3.9 Albumin 2.6 L Vitamin D 25-Hydroxy 48.5 POC Glucose 10/16/17 10/15/17 10/15/17 06:55 21:49 15:24 POC Glucose 135 H 142 H 198 H 10/15/17 12:05 POC Glucose 224 H Medical Necessity - Tobacco Use Smoking Status: Former smoker Tobacco Use: Non-smoker Assessment/Plan 1. Acute kidney injury creatinine increased to 1.6 today following heart catheterization yesterday likely contrast nephropathy and presence of diabetic nephropathy. Baseline creatinine 1.2. Suggest converting to oral Lasix. 2. Acute on chronic CHF. Continue with po diuretics Lasix 80 mg twice a day. 3. Aortic stenosis moderate radiology following 4. Hypertension stable 5. Diabetes mellitus type 2 with proteinuria likely due to diabetic nephropathy. Resume Cozaar when renal fxn back to basleine. 6. NSTEMI status post heart catheterization. Medical management at this time. 7. Lower extremity edema, lymphedema suspect due to pulmonary hypertension, diastolic HF continue with Lasix 8. Obstructive airway disease, hypoventilatory state with elevated carbon dioxide on blood gas on day of admission. May have obstructive apnea. 9. Morbid obesity Discussed with primary service
--- NOTE | 2017-10-16 14:42 | CASEMGMT ---
Per Dr. Talamantes, pt may discharge home today with resumption of HHC. Call to [facility] to notify them at this time, Kiki tiwaris understanding. Advised [facility] that someone would call when pt discharged and d/c instructions, facesheet and resumption order would be faxed, voices understanding. Green sheet left on chart at this time. Juvencio GUPTA CM
--- NOTE | 2017-10-16 15:02 | CASEMGMT ---
SW received a call from Heather at [facility] and she was mistaken and they do not have a bed available. SW spoke with patient and let her know that [facility] and [facility] do not have any beds. She did not know anything about any of the other nursing homes and she did not want SW to send referrals anywhere else. Physician said she would like to d/c patient. SW told her the two places that patient wanted do not have beds and patient will not let SW send referrals anywhere else. She said she will likely send her home with home health. Milady KELLY MSW
--- NOTE | 2017-10-16 16:20 | DCINST_ITS ---
You will use the following diet at home:: Calorie/Carbohydrate Controlled ( specify 1200, 1400, etc) - 1800 calorie, low salt diet Your food should be the consistency of: Regular Your liquids should be the consistency of: Regular/Thin Discharge Activity: Return to Normal Activity, - - elevate your legs when you are sitting in a chair Keep extremity elevated above heart level: Legs Call your doctor if you observe: Fever of 101 or Higher, Shortness of breath, Dizziness, Fainting spells, Chest pain, Calf discomfort Additional Instructions: Apply moisturizer to your legs twice a day to keep them from cracking and breaking open. Keep the legs elevated when you are sitting in a chair. do not sit in a chair for more that 1 hour at a time without getting up to walk around. Some of your medications have changed so follow the instructions on the med list we gave you at discharge. Pending Tests on Discharge: none Allergies/Adverse Reactions: Allergies Penicillins Allergy (Verified 10/12/17 11:00) Rash rosiglitazone maleate [From Avandia] Allergy (Verified 10/12/17 11:00) Swelling & diarrhea simvastatin [From Zocor] Allergy (Verified 10/12/17 11:00) Muscle weakness atorvastatin calcium [From Lipitor] Adverse Reaction (Verified 10/12/17 11:00) Muscle weakness esomeprazole magnesium [From Nexium] Adverse Reaction (Verified 10/12/17 11:00) Diarrhea lansoprazole [From Prevacid] Adverse Reaction (Verified 10/12/17 11:00) Diarrhea Sulfa (Sulfonamide Antibiotics) Adverse Reaction (Verified 10/12/17 11:00) Nausea/Vom/Diarrhea from PCP office records Medications to take at Discharge Aspirin [Aspirin, Baby] 81 mg PO DAILY@0810/20/14 Ferrous Gluconate 325 mg PO DAILY@79910/21/14 Metoprolol Tartrate [Lopressor (beta apryl)] 100 mg PO BID 10/21/14 Pantoprazole Sodium [Protonix] 40 mg PO BID 10/21/14 Rosuvastatin Calcium [Crestor] 2.5 mg PO QHS 10/21/14 Nitroglycerin [Nitrostat] 0.4 mg SUBLINGUAL Q5M PRN 11/24/14 Gabapentin [Neurontin] 100 mg PO BID 07/02/15 Ergocalciferol [Vitamin D] 50,000 units PO SA 02/16/16 Niacinamide [Niacin] 500 mg PO BID 02/16/16 Montelukast Sodium [Singulair] 10 mg PO QHS 05/06/16 Spironolactone 25 mg PO DAILY 06/10/16 Ondansetron [Zofran Odt] 8 mg PO Q6H PRN PRN 03/31/17 Insulin Glargine,Hum.rec.anlog [Basaglar Kwikpen U-100] 52 unit SQ QHS 08/20/17 Insulin Aspart [Novolog Flexpen] 20 units SC TIDAC 10/08/17 Losartan Potassium [Cozaar] 100 mg PO DAILY 10/08/17 Amlodipine [Norvasc] 5 mg PO DAILY 10/12/17 Sucralfate [Carafate] 1 gm PO 4X/DAY 10/12/17 Clopidogrel Bisulfate [Plavix] 75 mg PO DAILY #30 tab 10/16/17 Furosemide [Lasix] 40 mg PO BID #60 tab 10/16/17 Isosorbide Mononitrate [Imdur] 60 mg PO DAILY #30 tab 10/16/17 The following prescriptions were given: Clopidogrel Bisulfate [Plavix] 75 mg PO DAILY #30 tab Isosorbide Mononitrate [Imdur] 60 mg PO DAILY #30 tab Furosemide [Lasix] 40 mg PO BID #60 tab Primary Care Physician: Kim Field MD [Primary Care Provider] - Please follow up with your Primary Care Physician in: 1 week Please Follow Up With: Tate Leslie MD When: 1 month Proposed Discharge Date: 10/16/17
--- NOTE | 2017-10-16 16:28 | PCM.DC.SUM ---
Discharge Date and Diagnosis Date of Admission: 10/12/17 Date of Discharge: 10/16/17 - Primary Discharge Diagnosis acute on chronic diastolic CHF acute on chronic respiratory failure with hypoxemia NSTEMI Acute on chronic renal failure stage 3 Maceration both LE's - Secondary Discharge Diagnosis Chronic Problems Venous insufficiency of both lower extremities (Chronic) Other specified peripheral vascular diseases (Chronic) Ulcer of left lower extremity with fat layer exposed (Chronic) Ulcer of right lower extremity with fat layer exposed (Chronic) Delayed wound healing (Chronic) Noncompliance with treatment regimen (Chronic) 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) Aortic stenosis, moderate (Chronic) Severe Pulmonary arterial hypertension (Chronic) PA on R heart cath is 77 Pulmonary nodules (Chronic) Cholelithiasis (Chronic) Tricuspid regurgitation (Chronic) History of esophageal reflux (Chronic) History of hyperlipidemia (Chronic) History of hypertension (Chronic) S/P CABG (coronary artery bypass graft) (Chronic) Obesity (BMI 30.0-34.9) (Chronic) Stasis dermatitis of both legs (Chronic) 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) Thrombocytopenia (Chronic) Neuropathy, peripheral (Chronic) Chronic respiratory failure with hypoxemia Hospital Course and Treatment Imaging Results: Clinical Impression(s) from Imaging Studies Chest X-Ray 10/12/17 12:07 IMPRESSION: Since prior study, there has been progression of the CHF with bibasilar atelectasis and small bilateral effusions. Electronically Signed: Rik Morfin MD at 12:32 EDT Tel [phone], Service support , Renal Ultrasound 10/13/17 15:37 IMPRESSION: Normal ultrasound of the kidneys and urinary bladder. 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 Minda Hinton nephrology Operations: None Procedures: Cardiac catheterization Summary of Care Provided: The patient is a 66 year old F with DM II, CAD, HTN, moderate , severe pulmonary HTN, diastolic dysfunction, chronic diastolic congestive heart failure and obesity who presented to the Ed at [facility] on 10/12/17 c/o SOB. she had just been discharged from the hospital on 10/11 and she went home with oxygen. Apparently she attached herself to an empty tank of Oxygen and when the squad arrived her pulse ox was in the 40's. CXR in the ED showed CHF. Troponin was 0.19 and she denied CP. Creat was 1.28 which is her baseline. she was admitted to a monitored bed on the progressive care unit and Dr. Leslie was consulted. She was loaded with clopidogrel and aspirin was continued. He recommended both right and left cardiac catheterization and the patient was agreeable. IV diuretics were started and the cardiac cath was delayed until the patient could lie on her back flat. The troponin peaked at 2.02. Creat increased to 1.6 from 1.28 at admission with diuresis. She was seen in consult by Dr. Minda Haynes during her admission and will follow up with Dr. Haynes as an OP. On 10/15/2017 she was taken to the [facility] and had a patent left internal mammary artery to the left anterior descending artery and patent saphenous vein graft to the right coronary artery. The saphenous vein graft to the circumflex artery was completely occluded. There was moderate aortic stenosis. The left main had a 40-50% stenosis. The right heart catheterization demonstrated severe pulmonary hypertension with right heart pressures noted to be approximately 77. Continued medical management was recommended. On 10/15 she was converted to oral Lasix. She was agreeable to SNF at [place] but, unfortunately both of the places she chose to go had no beds. She was discharged home on 10/16/17. Vital signs at the time of discharge were temperature 97.9, pulse rate 62, blood pressure 132/49, respiratory rate 18 and she was 94% saturated on a 3 L nasal cannula. She was discharged on an increased dose of Imdur, 60 mg, Lasix 40 mg BID and Plavix 75mg daily in addition to her regular medications. She will follow up with Dr. Leslie in the office in [address] Field in 1 week. A BMP should be repeated at her next visit with Dr. Field. She will follow up with Dr. Haynes in 2 weeks. She did not have her potable oxygen with her at the hospital and she did not have transportation home. An ambulet was arranged and they provided oxygen for the ride home. PE: alert and oriented x3, NAD, not tachypneic at rest Lungs CTA Heart - RRR with a 2/6 systolic MM at the LLSB no peripheral edema....all wounds on the LE's were closed. the skin was dry and flakey secondary to stasis dermatitis. This note was generated with E[employer] dictation software. It may contain incorrect words, spelling, and punctuation that were not noted in checking the note before signing. Discharge Activity: Return to Normal Activity, - - elevate your legs when you are sitting in a chair Keep extremity elevated above heart level: Legs Call your doctor if you observe: Fever of 101 or Higher, Shortness of breath, Dizziness, Fainting spells, Chest pain, Calf discomfort Home Medications: Medications to take at Discharge Aspirin [Aspirin, Baby] 81 mg PO DAILY@0810/20/14 Ferrous Gluconate 325 mg PO DAILY@0810/21/14 Metoprolol Tartrate [Lopressor (beta apryl)] 100 mg PO BID 10/21/14 Pantoprazole Sodium [Protonix] 40 mg PO BID 10/21/14 Rosuvastatin Calcium [Crestor] 2.5 mg PO QHS 10/21/14 Nitroglycerin [Nitrostat] 0.4 mg SUBLINGUAL Q5M PRN 11/24/14 Gabapentin [Neurontin] 100 mg PO BID 07/02/15 Ergocalciferol [Vitamin D] 50,000 units PO SA 02/16/16 Niacinamide [Niacin] 500 mg PO BID 02/16/16 Montelukast Sodium [Singulair] 10 mg PO QHS 05/06/16 Ondansetron [Zofran Odt] 8 mg PO Q6H PRN PRN 03/31/17 Insulin Glargine,Hum.rec.anlog [Basaglar Kwikpen U-100] 52 unit SQ QHS 08/20/17 Insulin Aspart [Novolog Flexpen] 20 units SC TIDAC 10/08/17 Amlodipine [Norvasc] 5 mg PO DAILY 10/12/17 Sucralfate [Carafate] 1 gm PO 4X/DAY 10/12/17 Clopidogrel Bisulfate [Plavix] 75 mg PO DAILY #30 tab 10/16/17 Furosemide [Lasix] 40 mg PO BID #60 tab 10/16/17 Isosorbide Mononitrate [Imdur] 60 mg PO DAILY #30 tab 10/16/17 Following Prescrptions Were Given to Patient: Clopidogrel Bisulfate [Plavix] 75 mg PO DAILY #30 tab Isosorbide Mononitrate [Imdur] 60 mg PO DAILY #30 tab Furosemide [Lasix] 40 mg PO BID #60 tab Primary Care Physician: Kim Field MD [Primary Care Provider] - Please follow up with your Primary Care Physician in: 1 week Please Follow Up With: Tate Leslie MD When: 1 month Disposition: Home Minutes spent on discharge:: 35 Patient Condition:: Stable Medical Necessity - Tobacco Use Smoking Status: Former smoker Tobacco Use: Non-smoker Meaningful Use Info Meaningful Use Diagnoses (Choose all that apply): CHF - CHF CARLOS A/ARB ordered at discharge?: No Reason CARLOS A/ARB not ordered?: Worsening renal dysfunctn Documented LVEF (%): 65 Code Visit Inpatient E&M: 89273 Disch Hosp
[2017-10-16 16:31] LABS: Bedside Glucose 229 mg/dL (70-110)
--- NOTE | 2017-10-16 16:37 | DS.PCM_ITS ---
Discharge Date and Diagnosis Date of Admission: 10/12/17 Date of Discharge: 10/16/17 - Primary Discharge Diagnosis acute on chronic diastolic CHF acute on chronic respiratory failure with hypoxemia NSTEMI Acute on chronic renal failure stage 3 Maceration both LE's - Secondary Discharge Diagnosis Chronic Problems Venous insufficiency of both lower extremities (Chronic) Other specified peripheral vascular diseases (Chronic) Ulcer of left lower extremity with fat layer exposed (Chronic) Ulcer of right lower extremity with fat layer exposed (Chronic) Delayed wound healing (Chronic) Noncompliance with treatment regimen (Chronic) 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) Aortic stenosis, moderate (Chronic) Severe Pulmonary arterial hypertension (Chronic) PA on R heart cath is 77 Pulmonary nodules (Chronic) Cholelithiasis (Chronic) Tricuspid regurgitation (Chronic) History of esophageal reflux (Chronic) History of hyperlipidemia (Chronic) History of hypertension (Chronic) S/P CABG (coronary artery bypass graft) (Chronic) Obesity (BMI 30.0-34.9) (Chronic) Stasis dermatitis of both legs (Chronic) 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) Thrombocytopenia (Chronic) Neuropathy, peripheral (Chronic) Chronic respiratory failure with hypoxemia Hospital Course and Treatment Imaging Results: Clinical Impression(s) from Imaging Studies Chest X-Ray 10/12/17 12:07 IMPRESSION: Since prior study, there has been progression of the CHF with bibasilar atelectasis and small bilateral effusions. Electronically Signed: Rik Morfin MD at 12:32 EDT Tel [phone], Service support , Renal Ultrasound 10/13/17 15:37 IMPRESSION: Normal ultrasound of the kidneys and urinary bladder. Electronically Signed: Janes Marcus at 22:23 EDT Tel , Service support , Consultations 10/12/17 17:36 Consult: Onc/Wound/procurement accountant Routine Comment[facility] Minda Hinton nephrology Operations: None Procedures: Cardiac catheterization Summary of Care Provided: The patient is a 66 year old F with DM II, CAD, HTN, moderate , severe pulmonary HTN, diastolic dysfunction, chronic diastolic congestive heart failure and obesity who presented to the Ed at [facility] on 10/12/17 c/o SOB. she had just been discharged from the hospital on 10/11 and she went home with oxygen. Apparently she attached herself to an empty tank of Oxygen and when the squad arrived her pulse ox was in the 40's. CXR in the ED showed CHF. Troponin was 0.19 and she denied CP. Creat was 1.28 which is her baseline. she was admitted to a monitored bed on the progressive care unit and Dr. Leslie was consulted. She was loaded with clopidogrel and aspirin was continued. He recommended both right and left cardiac catheterization and the patient was agreeable. IV diuretics were started and the cardiac cath was delayed until the patient could lie on her back flat. The troponin peaked at 2.02. Creat increased to 1.6 from 1.28 at admission with diuresis. She was seen in consult by Dr. Minda Haynes during her admission and will follow up with Dr. Haynes as an OP. On 10/15/2017 she was taken to the Customer Account Technician and had a patent left internal mammary artery to the left anterior descending artery and patent saphenous vein graft to the right coronary artery. The saphenous vein graft to the circumflex artery was completely occluded. There was moderate aortic stenosis. The left main had a 40-50% stenosis. The right heart catheterization demonstrated severe pulmonary hypertension with right heart pressures noted to be approximately 77. Continued medical management was recommended. On 10/15 she was converted to oral Lasix. She was agreeable to SNF [place] but, unfortunately both of the places she chose to go had no beds. She was discharged home on 10/16/17. Vital signs at the time of discharge were temperature 97.9, pulse rate 62, blood pressure 132/49, respiratory rate 18 and she was 94% saturated on a 3 L nasal cannula. She was discharged on an increased dose of Imdur, 60 mg, Lasix 40 mg BID and Plavix 75mg daily in addition to her regular medications. She will follow up with Dr. Leslie in the office in [address] Field in 1 week. A BMP should be repeated at her next visit with Dr. Field. She will follow up with Dr. Haynes in 2 weeks. She did not have her potable oxygen with her at the hospital and she did not have transportation home. An ambulet was arranged and they provided oxygen for the ride home. PE: alert and oriented x3, NAD, not tachypneic at rest Lungs CTA Heart - RRR with a 2/6 systolic MM at the LLSB no peripheral edema....all wounds on the LE's were closed. the skin was dry and flakey secondary to stasis dermatitis. This note was generated with [employer] dictation software. It may contain incorrect words, spelling, and punctuation that were not noted in checking the note before signing. Discharge Activity: Return to Normal Activity, - - elevate your legs when you are sitting in a chair Keep extremity elevated above heart level: Legs Call your doctor if you observe: Fever of 101 or Higher, Shortness of breath, Dizziness, Fainting spells, Chest pain, Calf discomfort Home Medications: Medications to take at Discharge Aspirin [Aspirin, Baby] 81 mg PO DAILY@0810/20/14 Ferrous Gluconate 325 mg PO DAILY@0810/21/14 Metoprolol Tartrate [Lopressor (beta apryl)] 100 mg PO BID 10/21/14 Pantoprazole Sodium [Protonix] 40 mg PO BID 10/21/14 Rosuvastatin Calcium [Crestor] 2.5 mg PO QHS 10/21/14 Nitroglycerin [Nitrostat] 0.4 mg SUBLINGUAL Q5M PRN 11/24/14 Gabapentin [Neurontin] 100 mg PO BID 07/02/15 Ergocalciferol [Vitamin D] 50,000 units PO SA 02/16/16 Niacinamide [Niacin] 500 mg PO BID 02/16/16 Montelukast Sodium [Singulair] 10 mg PO QHS 05/06/16 Ondansetron [Zofran Odt] 8 mg PO Q6H PRN PRN 03/31/17 Insulin Glargine,Hum.rec.anlog [Basaglar Kwikpen U-100] 52 unit SQ QHS 08/20/17 Insulin Aspart [Novolog Flexpen] 20 units SC TIDAC 10/08/17 Amlodipine [Norvasc] 5 mg PO DAILY 10/12/17 Sucralfate [Carafate] 1 gm PO 4X/DAY 10/12/17 Clopidogrel Bisulfate [Plavix] 75 mg PO DAILY #30 tab 10/16/17 Furosemide [Lasix] 40 mg PO BID #60 tab 10/16/17 Isosorbide Mononitrate [Imdur] 60 mg PO DAILY #30 tab 10/16/17 Following Prescrptions Were Given to Patient: Clopidogrel Bisulfate [Plavix] 75 mg PO DAILY #30 tab Isosorbide Mononitrate [Imdur] 60 mg PO DAILY #30 tab Furosemide [Lasix] 40 mg PO BID #60 tab Primary Care Physician: Kim Field MD [Primary Care Provider] - Please follow up with your Primary Care Physician in: 1 week Please Follow Up With: Tate Leslie MD When: 1 month Disposition: Home Minutes spent on discharge:: 35 Patient Condition:: Stable Medical Necessity - Tobacco Use Smoking Status: Former smoker Tobacco Use: Non-smoker Meaningful Use Info Meaningful Use Diagnoses (Choose all that apply): CHF - CHF CARLOS A/ARB ordered at discharge?: No Reason CARLOS A/ARB not ordered?: Worsening renal dysfunctn Documented LVEF (%): 65 Code Visit Inpatient E&M: 32770 Disch Hosp
[2017-10-16 16:41] LABS: Bedside Glucose 141 mg/dL (70-110)
--- NOTE | 2017-10-20 15:53 | CASEMGMT ---
ALONSO BARR DISCHARGE F/U PHONE CALL LACE: 12 STRATA: 4 CALL DATE: 10/20/17 DISCHARGE DATE: 10/16/17 TIME OF CALL: 1552 ATTEMPTED BUT NO ANSWER AND UNABLE TO LEAVE VOICEMAIL. WILL ATTEMPT AGAIN. ADM DX: HYPOXIA/ACUTE ON CHRONIC CHF EXACERBATION SSTATEN ALONSO BARR
== END 2017-10-16 19:02 | disposition home or self-care (01) | DRG 121 ==
LOC: ED 14:12 → PCU 16:33
PROVIDERS: Internal Medicine Cardiovascular Disease; Internal Medicine Nephrology; Nurse Practitioner Family; Admitting Provider Internal Medicine; Emergency Provider Emergency Medicine; Family Provider Internal Medicine; PCP Internal Medicine; Visit Provider Internal Medicine
DX: I13.0 Hypertensive heart and chronic kidney disease with heart failure and stage 1 through stage 4 chronic kidney disease, or unspecified chronic kidney disease (principal); I21.4 Non-ST elevation (NSTEMI) myocardial infarction; N18.3 Chronic kidney disease, stage 3 (moderate); I50.33 Acute on chronic diastolic (congestive) heart failure; N17.9 Acute kidney failure, unspecified; J96.21 Acute and chronic respiratory failure with hypoxia; D69.6 Thrombocytopenia, unspecified; L97.912 Non-pressure chronic ulcer of unspecified part of right lower leg with fat layer exposed; L97.922 Non-pressure chronic ulcer of unspecified part of left lower leg with fat layer exposed; I35.0 Nonrheumatic aortic (valve) stenosis; I36.1 Nonrheumatic tricuspid (valve) insufficiency; E11.22 Type 2 diabetes mellitus with diabetic chronic kidney disease; I25.10 Atherosclerotic heart disease of native coronary artery without angina pectoris; E66.01 Morbid (severe) obesity due to excess calories; E11.51 Type 2 diabetes mellitus with diabetic peripheral angiopathy without gangrene; E11.21 Type 2 diabetes mellitus with diabetic nephropathy; E11.42 Type 2 diabetes mellitus with diabetic polyneuropathy; J98.8 Other specified respiratory disorders; I83.209 Varicose veins of unspecified lower extremity with both ulcer of unspecified site and inflammation; I27.21 Secondary pulmonary arterial hypertension; K80.20 Calculus of gallbladder without cholecystitis without obstruction; K21.9 Gastro-esophageal reflux disease without esophagitis; E78.5 Hyperlipidemia, unspecified; Z87.891 Personal history of nicotine dependence; I25.2 Old myocardial infarction; Z95.1 Presence of aortocoronary bypass graft; Z68.34 Body mass index [BMI] 34.0-34.9, adult; Z91.11 Patient's noncompliance with dietary regimen; Z91.14 Patient's other noncompliance with medication regimen; Z91.19 Patient's noncompliance with other medical treatment and regimen; Z99.81 Dependence on supplemental oxygen; Z79.4 Long term (current) use of insulin; Z79.01 Long term (current) use of anticoagulants; Z79.82 Long term (current) use of aspirin; Z79.899 Other long term (current) drug therapy
CPT/HCPCS: 36415; 71045; 76770; 80048; 80069; 81001; 82306; 82570; 82803; 82962; 83036; 83880; 84156; 84484; 85025; 85027; 85610; 85730; 87086; 93005; 93457; 94762; 97116; 97162; 97166; 97530; 97802; 99285; J7030; A4216; C1751; C1769; C1894; J1940; Q9967

== ENCOUNTER 2017-10-29 18:06 | Emergency (ER) | payer MEDICAID, SELFPAY ==
[2017-10-29 18:07] VITALS: BP 125/61; PULSE 93; RESP 17; TEMP 36.4; O2SAT 91; BMI 33.4
--- NOTE | 2017-10-29 18:20 | RAD_ITS ---
STUDY: X-RAY CHEST REASON FOR EXAM: Female, 67 years old. Chest pain TECHNIQUE: Single frontal view COMPARISON: October 12, 2017 FINDINGS: Sternotomy wires are again noted. The lungs are expanded. There is interstitial prominence. Cardiomegaly. Normal mediastinum and kel. Mildly prominent central pulmonary arteries. Calcified aortic arch and descending thoracic aorta. Normal visualized thoracic spine. Normal visualized ribs, clavicles, and shoulders. There is no demonstrated abnormality of the visualized soft tissue structures of the upper abdomen. RAD/Chest 1 View (Portable) IMPRESSION: Bilateral interstitial prominence. Cardiomegaly and central pulmonary vascular prominence, improved since the previous study. Electronically Signed: De Murphy DO at 19:01 EDT Tel [phone], Service support ,
--- NOTE | 2017-10-29 18:24 | EKG12_ITS ---
Test Reason : CP Blood Pressure : / mmHG Vent. Rate : 092 BPM Atrial Rate : 092 BPM P-R Int : 140 ms QRS Dur : 068 ms QT Int : 350 ms P-R-T Axes : 047 024 087 degrees QTc Int : 432 ms Normal sinus rhythm Nonspecific ST and T wave abnormality Abnormal ECG Confirmed by ANUSHKA CHANCE, PASTOR ([id number]), design editor PROMISE DICKINSON ([id number]) on 11/02/2017 1:56:36 PM Referred By: ROXANNE/ARLET Confirmed By:PASTOR REVELES MD
[2017-10-29 18:48] LABS: Absolute Lymphocyte Count 0.37 X10^3/ul (0.83-4.51); Absolute Neutrophil Count 8.5 X10^3/uL (2.0-7.7); Basophil# 0.01 X10^3/uL; Basophil% 0.1 % (0-1); Eosinophil# 0.05 X10^3/uL; Eosinophils% 0.5 % (0-5); Hematocrit 30.8 % (37-47); Hemoglobin 9.6 g/dl (12.0-15.0); Lymphocyte # 0.37 X10^3/ul (4.0); Lymphocyte % 3.9 % (19-41); Mean Corp Hgb Conc 31.2 g/gl (32-36); Mean Corpuscular Hgb 28.6 pg (27.0-32.0); Mean Corpuscular Volume 91.7 fL (81-99); Mean Platelet Vol. 10.6 fl (6.2-12.0); Monocyte# 0.61 X10^3/uL; Monocyte% 6.4 % (0-10); Neutrophil # 8.49 X10^3/uL (2.7-7.7); Neutrophil % 88.9 % (47-70); Platelet Count 193 K/mm3 (150-450); RBC Distribution Width CV 15.1 % (11.6-14.6); RBC Distribution Width SD 51.4 fl (35.1-43.9); Red Blood Count 3.36 M/mm3 (4.2-5.4); White Blood Count 9.6 K/mm3 (4.4-11.0)
[2017-10-29 18:49] LABS: Differential Indicated SCAN CRITERIA MET; POSITIVE COUNT NO; POSITIVE DIFFERENTIAL YES; POSITIVE MORPHOLOGY NO
--- NOTE | 2017-10-29 18:50 | ED.DCSUM_ITS ---
- ER Visit Summary Date of Service: 10/29/17 Chief Complaint: Chest pain History of Present Illness: The patient is a 67 F with multiple medical problems who presents from the wound center. Apparently the chest pain started when she was not wearing her O2. She does report anxiousness. She states it hurts all over. She also complained of shortness of breath and diaphoresis. Initially she said the pain started when she was getting ready for her wound center appointment. Patient then made comment uncertain when it started. She is uncertain of the duration. She did receive nitroglycerin and aspirin by paramedics. She states there was no effect. She is still complaining of a sharp chest pain that is all over. She denies shortness of breath or diaphoresis presently. She denies any leg pain or discoloration. There is no history of PE or DVT. She denies fever, chills night sweats. She denies cough or pleuritic chest pain. Please read written note. Review of systems otherwise negative. Physical Examination: Vital signs are unremarkable. She is not hypoxic. She is overweight with a BMI of 33.5. HEENT exam is remarkable for poor dentition. There is a well-healed mid sternotomy scar noted. Lungs are clear to auscultation. Heart is regular with a systolic murmur heard throughout the precordium. Lungs are clear to auscultation. Abdomen is soft nontender. There is no hepatosplenomegaly. There is pitting edema in the lower extremities. She has open wounds noted. These wounds are not infected. She is alert she is oriented to time, place and year. Motor is 5/5 upper extremity. Difficult to assess lower extremity because of wounds and discomfort secondary to peripheral neuropathy. Test Results: EKG was obtained and reveals a sinus rhythm with no ossific ST-T wave changes. Rate is 92. Repeat EKG at 2100 unchanged. Chest x-ray reveals improvement from prior x-ray dated October 12, 2017. Inspiratory volume is limited and may be reason for what appears to be congestion. Sternal wires are noted. First troponin is less than 0.02. Second troponin 0 0.03 which is normal. Delta is normal. Creatinine is 1.95 and glucose is 256. H&H 9.6 and 30.8. Emergency Department Course and Treatment: To evaluate patient's chest discomfort that occurred when she was not wearing her oxygen and apparently was anxious per wound cares center personnel. She received aspirin and nitro by squad. She reported no improvement with nitroglycerin. Treatment Plan: Since EKG is unchanged and troponin #1 and #2 are normal and delta is normal even though she has risk factors will discharge to home. Disposition: Discharged to home Impression: Chest pain of uncertain etiology Type 2 diabetes History of hypertension History of hypercholesterolemia History of coronary disease status post bypass surgery This note was generated with [employer] dictation software. It may contain incorrect words, spelling, and punctuation that were not noted in review of the chart prior to signing ED Disposition - Plan for ED Patient: Disposition: Home or Assisted Living Chief Complaint: Chest Pain Instructions: ED Chest Pain Atypical Unkn Cause Referrals: Kim Field MD [Primary Care Provider] - 1-2 Days if not improving
[2017-10-29 18:54] LABS: Anion Gap 8 (5-15); BUN 39 mg/dL (7-18); Calcium,Total 8.5 mg/dL (8.5-10.1); Chloride 106 mmol/L (98-107); Creatinine, Serum 1.95 mg/dL (0.55-1.02); EST Glomerular Filtration Rate 27 mL/min (>60); Est Glom Filt Rate - Afr Amer 33 mL/min (>60); Estimated Creatinine Clearance 28.24 ml/min; Glucose 256 mg/dL (74-106); Potassium 4.5 mmol/L (3.5-5.1); Sodium Level 141 mmol/L (136-145)
[2017-10-29 19:06] VITALS: BP 126/45; PULSE 91; RESP 17; O2SAT 95
[2017-10-29 19:22] LABS: Differential Comment SCANNED
[2017-10-29 20:00] VITALS: BP 135/51; PULSE 86; RESP 20; O2SAT 97
[2017-10-29 21:00] VITALS: BP 142/62; PULSE 85; RESP 12; O2SAT 98
--- NOTE | 2017-10-29 21:00 | EKG12_ITS ---
Test Reason : CP Blood Pressure : / mmHG Vent. Rate : 086 BPM Atrial Rate : 086 BPM P-R Int : 130 ms QRS Dur : 080 ms QT Int : 356 ms P-R-T Axes : 039 025 080 degrees QTc Int : 426 ms Normal sinus rhythm Nonspecific ST and T wave abnormality Abnormal ECG Confirmed by ANUSHKA CHANCE, PASTOR ([id number]), content editor PROMISE DICKINSON ([id number]) on 11/02/2017 1:56:55 PM Referred By: ROXANNE Confirmed By:PASTOR REVELES MD
[2017-10-29 22:48] VITALS: BP 153/62; PULSE 90; RESP 14; O2SAT 95
--- NOTE | 2017-10-29 22:49 | ED.RN ---
CALLED [facility] FOR [facility] PER PATIENT REQUEST.
== END 2017-10-29 23:14 | disposition home or self-care (01) ==
PROVIDERS: Emergency Provider Emergency Medicine; Family Provider Internal Medicine; PCP Internal Medicine
DX: R07.9 Chest pain, unspecified (principal); I25.10 Atherosclerotic heart disease of native coronary artery without angina pectoris; I13.2 Hypertensive heart and chronic kidney disease with heart failure and with stage 5 chronic kidney disease, or end stage renal disease; E11.22 Type 2 diabetes mellitus with diabetic chronic kidney disease; N18.6 End stage renal disease; I50.9 Heart failure, unspecified; E78.00 Pure hypercholesterolemia, unspecified; K21.9 Gastro-esophageal reflux disease without esophagitis; E66.9 Obesity, unspecified; Z68.33 Body mass index [BMI] 33.0-33.9, adult; Z79.4 Long term (current) use of insulin; Z95.1 Presence of aortocoronary bypass graft; Z79.82 Long term (current) use of aspirin; Z79.01 Long term (current) use of anticoagulants; Z79.899 Other long term (current) drug therapy; Z87.891 Personal history of nicotine dependence
CPT/HCPCS: 71045; 80048; 84484; 85025; 85652; 86038; 86140; 87070; 87075; 87205; 93005; 99285; J7030; A4216

== ENCOUNTER 2017-11-19 15:30 | Outpatient (RCR) | payer MEDICAID, SELFPAY ==
[2017-10-27 00:53] VITALS: PULSE 64; RESP 20; TEMP 36.2
[2017-10-29 16:26] VITALS: BP 126/81; PULSE 89; RESP 20; TEMP 35.9
--- NOTE | 2017-10-29 17:23 | WC ---
Patient was restless and c/o chest pain at 1710. Rated pain 7/10. BP- 145/62, P-88, R-20. States uses O2 at home continuously. SPO2 checked, ranging between 89-91%. Applied O2 @ 2l/m via nasal cannula. SPO2 rechecked after 5 min, 98%. States chest pain is subsiding and feeling less anxious. Reported symptoms to Duc Silva NP.
--- NOTE | 2017-11-03 17:15 | PN.PCM_ITS ---
(1) Venous insufficiency of both lower extremities Status: Chronic Code(s): I87.2 - Venous insufficiency (chronic) (peripheral) (2) Ulcer of left lower extremity with fat layer exposed Status: Chronic Code(s): L97.922 - Non-pressure chronic ulcer of unspecified part of left lower leg with fat layer exposed (3) Ulcer of right lower extremity with fat layer exposed Status: Chronic Code(s): L97.912 - Non-pressure chronic ulcer of unspecified part of right lower leg with fat layer exposed (4) Delayed wound healing Status: Chronic Code(s): T14.8XXD - Other injury of unspecified body region, subsequent encounter (5) Stasis dermatitis of both legs Status: Chronic Code(s): I83.11 - Varicose veins of right lower extremity with inflammation; I83.12 - Varicose veins of left lower extremity with inflammation Type of Wound Date of Service: 10/29/17 Chief Complaint: Lower extremity ulcer and Maceration s/p recent hospital admission. History of Wound: Ms. Duque is a 66-year-old with a complex past medical history who is here as a follow up from recent hospital admission for lower extremity edema/ulcers. She has been seen here in the past most recently in May and typically does not routinely follow-up. She was seen most recently in the hospital and managed as a case of bilateral lower extremity ulcers and maceration. She was also noted to have significant maceration of both feet with foul-smelling creamy discharge and toe deformities. She is a poor historian and cannot really give a clear history of onset. She was noted to have had an Quincy wrap/Unna boot on for about 2 months. She was seen by Dr. Michael and surgical debridement was recommended however, patient declined. She had venous studies done in July which were without any significant abnormalities. She saw Dr. Alicea last week and she recommended podiatry. Pt has superficial macerated ulcerations diffusely on the legs as well as dorsal bilateral forefeet. Ulcerations appear due to drainage. Pt has poor hygeine. Of note, patient was discharged by home health due to bed bug infestation in her house. 09/15--Improving with Quincy wraps for compression, silver cell to open area on R frnacis, weaving aquacel ag interdigitally. Pt did come in last Thursday for nurse visit. Denies N/V/F/C. Denies pus, malodor, warmth, pain. Continued swelling of legs. Arterial testing scheduled for next week. 09/22-- Still having a lot of drainage with maceration of webspaces due to drainage from her legs. Denies N/V/F/C. Denies pus, malodor, warmth, pain. Continued swelling of legs. Arterial testing reveals non-compressible vessels but triphasic waveforms. Will try Unna boots for irritated skin of legs, swelling. Will start the process of ordering edema pumps. 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 09/29--Still having a lot of drainage with maceration of webspaces due to drainage. Drainage is green. Denies N/V/F/C. Denies pus, malodor, warmth, pain. Continued swelling of legs. Arterial testing reveals non-compressible vessels but triphasic waveforms. Irritated skin of legs worse from Unna boot, switch back to 3M. Needs edema pumps. 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 - Physical Exam Vital Signs Temp Pulse Resp BP 96.6 F L 89 20 H 126/81 H 10/29/17 16:26 10/29/17 16:26 10/29/17 16:26 10/29/17 16:26 Assessment/Plan Assessment: see diagnoses Plan: The patient was not seen for her wound care today and the wound healing center due to the fact that she came in not wearing her oxygen and was complaining of sharp midsternal chest pain. The chest pain did not resolve after her supplemental oxygen was applied and therefore she was referred to the emergency department via squad for evaluation of her chest pain. Patient will be seen and 1 week at the wound healing center for additional care and workup of her chronic wounds
[2017-11-05 15:08] VITALS: BP 122/83; PULSE 69; RESP 16; TEMP 36
--- NOTE | 2017-11-05 18:55 | PCM.WC.PN ---
(1) Stasis dermatitis of both legs Status: Chronic Current Visit: Yes Code(s): I83.11 - Varicose veins of right lower extremity with inflammation; I83.12 - Varicose veins of left lower extremity with inflammation (2) Venous insufficiency of both lower extremities Status: Chronic Current Visit: Yes Code(s): I87.2 - Venous insufficiency (chronic) (peripheral) (3) Ulcer of left lower extremity with fat layer exposed Status: Chronic Current Visit: No Code(s): L97.922 - Non-pressure chronic ulcer of unspecified part of left lower leg with fat layer exposed (4) Ulcer of right lower extremity with fat layer exposed Status: Chronic Current Visit: No Code(s): L97.912 - Non-pressure chronic ulcer of unspecified part of right lower leg with fat layer exposed (5) Delayed wound healing Status: Chronic Current Visit: Yes Code(s): T14.8XXD - Other injury of unspecified body region, subsequent encounter (6) Non-pressure chronic ulcer of other part of left foot limited to breakdown of skin Status: Acute Current Visit: Yes Code(s): L97.521 - Non-pressure chronic ulcer of other part of left foot limited to breakdown of skin (7) Non-pressure chronic ulcer of other part of right lower leg limited to breakdown of skin Status: Acute Current Visit: Yes Code(s): L97.811 - Non-pressure chronic ulcer of other part of right lower leg limited to breakdown of skin Type of Wound Date of Service: 11/05/17 Chief Complaint: Lower extremity ulcer and Maceration s/p recent hospital admission. History of Wound: Ms. Duque is a 66-year-old with a complex past medical history who is here as a follow up from recent hospital admission for lower extremity edema/ulcers. She has been seen here in the past most recently in May and typically does not routinely follow-up. She was seen most recently in the hospital and managed as a case of bilateral lower extremity ulcers and maceration. She was also noted to have significant maceration of both feet with foul-smelling creamy discharge and toe deformities. She is a poor historian and cannot really give a clear history of onset. She was noted to have had an Quincy wrap/Unna boot on for about 2 months. She was seen by Dr. Michael and surgical debridement was recommended however, patient declined. She had venous studies done in July which were without any significant abnormalities. She saw Dr. Alicea previously and she recommended podiatry. Pt has superficial macerated ulcerations diffusely on the legs as well as dorsal bilateral forefeet. Ulcerations appear due to drainage. Pt has poor hygeine. Of note, patient was discharged by home health due to bed bug infestation in her house. 09/15--Improving with Quincy wraps for compression, silver cell to open area on R francis, weaving aquacel ag interdigitally. Pt did come in last Thursday for nurse visit. Denies N/V/F/C. Denies pus, malodor, warmth, pain. Continued swelling of legs. Arterial testing scheduled for next week. 09/22--Still having a lot of drainage with maceration of webspaces due to drainage from her legs. Denies N/V/F/C. Denies pus, malodor, warmth, pain. Continued swelling of legs. Arterial testing reveals non-compressible vessels but triphasic waveforms. Will try Unna boots for irritated skin of legs, swelling. Will start the process of ordering edema pumps. 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 09/29--Still having a lot of drainage with maceration of webspaces due to drainage. Drainage is green. Denies N/V/F/C. Denies pus, malodor, warmth, pain. Continued swelling of legs. Arterial testing reveals non-compressible vessels but triphasic waveforms. Irritated skin of legs worse from Unna boot, switch back to 3M. Needs edema pumps. 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 11/08- Wound care taken over by Duc Silva NP. Continued swelling of legs with worsening redness, clear/yellow drainage coming from multiple superficial ulcerations on BLLE. Pt continues with gentian jose inbetween toes and triamcinolone cream on legs. Will trial drsgs on xerofoam, gauze, and coban. Pt instructed to follow up with derm. Given the symptoms, will also order some rheum labs to see if there is underlying rheum etiology. Progress of Wound: Stable. Has clearish yellow discharge from bilateral superficial ulcerations and an increase in redness. Therefore repeat cultures were obtained. No obvious signs of systemic infection at this time such as fever, chills, warmth, or purulent drainage. - Physical Exam Vital Signs Temp Pulse Resp BP 96.8 F L 69 16 122/83 H 11/05/17 15:08 11/05/17 15:08 11/05/17 15:08 11/05/17 15:08 General: Alert, Oriented x3, Cooperative, No apparent distress HEENT: Atraumatic Lungs: Clear to auscultation Cardiovascular: Regular rate Extremities: Edema - 3+ bilateral lower extremity edema Skin: Ulcer/ Wound - Superficial ulcerations diffusely present on bilateral lower extremities as well as dorsal aspects of feet, small amount of surrounding erythema present however no warmth, malodor, pus or increase in pain Wound Measurements and Assessment WC - Nurse 1 - General Ulcer Measurement Start: 10/29/17 16:26 Freq: Status: Active Protocol: Activity Type Activity Date Activity User E-Sign Co-Sign Detail Recorded Client Recorded Date Recorded By Document 11/05/17 15:08 [facility] [id number] 11/05/17 15:21 [facility] 11/05/17 15:08 Wound Center Nurse 1 [Ulcer Assessment] #5- LLE CIRCUMFERENTIAL -Combined with other wound No -Current Size (cm) - Length 45.5 -Current Size (cm) - Width 46.5 -Current Size (cm) - Depth 0.1 -Total Square Cm 2115.75 -Photo Taken No -Epithelialization None Present -Tunneling No -Undermining/Tunneling No -Circular Undermining No -Classification - Thickness Full Thickness without Exposed Support Structure -Change in Wound Grade/Stage No Query Text:If change please identify the Stage/Grade in the comment (ie. S2 G3) -Exudate Amt Large (67-100%) -Exudate Type Serous -Wound Margin Indistinct, Non -Visible -Granulation Amt None Present (0 %) -Slough/Fibrin Yes -Necrosis Amt Large (67-100%) -Necrotic Tissue Type Adherent Slough -Structure Exposed None/Limited to Skin Breakdown -Texture (Melvi-wound Skin Appearance) Assessed Localized Edema -Moisture (Melvi-wound Skin Appearance Assessed ) Maceration Weeping -Color (Melvi-wound Skin Appearance) Assessed Erythema -Temperature (Melvi-wound Skin No Abnormality Appearance) (Pt Warm) -Ulcer Cleansing Wound Cleanser -Foul Odor after Cleansing No -Anesthetic Used 4% Lidocaine Solution #4- RLE CIRCUMFERENTIAL -Combined with other wound No -Current Size (cm) - Length 49.5 -Current Size (cm) - Width 46.5 -Current Size (cm) - Depth 0.1 -Total Square Cm 2301.75 -Photo Taken No -Epithelialization None Present -Tunneling No -Undermining/Tunneling No -Circular Undermining No -Classification - Thickness Full Thickness without Exposed Support Structure -Change in Wound Grade/Stage No Query Text:If change please identify the Stage/Grade in the comment (ie. S2 G3) -Exudate Amt Large (67-100%) -Exudate Type Serous -Wound Margin Indistinct, Non -Visible -Granulation Amt None Present (0 %) -Necrosis Amt Large (67-100%) -Necrotic Tissue Type Adherent Slough -Structure Exposed None/Limited to Skin Breakdown -Texture (Melvi-wound Skin Appearance) Assessed Localized Edema -Moisture (Melvi-wound Skin Appearance Assessed ) Maceration Weeping -Color (Melvi-wound Skin Appearance) Assessed Erythema -Temperature (Melvi-wound Skin No Abnormality Appearance) (Pt Warm) -Tenderness on Palpation (Melvi-wound No Skin Appearance) -Ulcer Cleansing Wound Cleanser -Foul Odor after Cleansing No -Anesthetic Used 4% Lidocaine Solution [Edema Assessment] -Right Calf (cm) 46.5 -Right Ankle (cm) 25.5 -Left Calf (cm) 45.5 -Left Ankle (cm) 23.3 WC - Nurse 2 - General Ulcer CM Notes Start: 10/29/17 16:26 Freq: Status: Active Protocol: Activity Type Activity Date Activity User E-Sign Co-Sign Detail Recorded Client Recorded Date Recorded By Document 11/05/17 16:50 DV [id number] 11/05/17 16:58 DV 11/05/17 16:50 Wound Center Nurse 2 [Procedure/Treatment] #5- LLE CIRCUMFERENTIAL -Time 16:50 -Correct Patient Yes -Procedure Performed No -Wound/Ulcer Outcome Not Healed #4- RLE CIRCUMFERENTIAL -Time 16:52 -Correct Patient Yes -Procedure Performed No -Wound/Ulcer Outcome Not Healed [See Physician Procedure note for Specifics] Pain Scale: 0-10 Numeric [Pain] -Is Patient Pain Free? Yes Neurological: Neuro grossly intact Psych/Mental Status: Anxious Debridement Note Post-Debridement Measurements/Treatment WC - Nurse 2 - General Ulcer CM Notes Start: 10/29/17 16:26 Freq: Status: Active Protocol: Activity Type Activity Date Activity User E-Sign Co-Sign Detail Recorded Client Recorded Date Recorded By Document 11/05/17 16:50 DV [id number] 11/05/17 16:58 DV 11/05/17 16:50 Wound Center Nurse 2 #5- LLE CIRCUMFERENTIAL -Time 16:50 -Correct Patient Yes -Procedure Performed No -Wound/Ulcer Outcome Not Healed #4- RLE CIRCUMFERENTIAL -Time 16:52 -Correct Patient Yes -Procedure Performed No -Wound/Ulcer Outcome Not Healed Pain Scale: 0-10 Numeric Is Patient Pain Free? Yes No debridement was completed today Assessment/Plan Active Problems Venous insufficiency of both lower extremities (Chronic) Delayed wound healing (Chronic) Non-pressure chronic ulcer of other part of right lower leg limited to breakdown of skin (Acute) Non-pressure chronic ulcer of other part of left foot limited to breakdown of skin (Acute) Stasis dermatitis of both legs (Chronic) Assessment: see diagnoses Plan: The patient was seen and examined at the wound center today and was updated on the plan of care. The patient does have a history of arterial femoral pop bypass right lower extremity. Previous arterial Dopplers of the lower extremities revealed noncompressible vessels but triphasic waveforms bilaterally and recent venous duplex demonstrated absent vein due to bypass but remaining veins competent. No debridement was done today the patients wound care will consist of: Applying Xeroform, gauze, and Coban. Wound cultures were collected. Given patient's symptoms, basic rheum labs were ordered to see if a rheumatology component is playing a part in her condition. Patient does not wish to continue the triamcinolone cream so this was discontinued. She may continue with the gentian jose in between her toes. Patient educated on the importance of diet on wound healing and instructed to increase protein and vitamin C intake. Patient verbalized understanding. Patient will follow up at wound healing center in one week or sooner if needed. Will start the process of ordering edema pumps as well. This note was generated with [employer] dictation software. It may contain incorrect words, spelling, and punctuation that were not noted in checking the note before signing. Code Visit Office Visits / Consults: [id number] OV L4 Est
[2017-11-05 19:30] LABS: Erythrocyte Sedimentation Rate 32 mm/hr (0-30)
--- NOTE | 2017-11-08 12:14 | PN.PCM_ITS ---
(1) Stasis dermatitis of both legs Status: Chronic Current Visit: Yes Code(s): I83.11 - Varicose veins of right lower extremity with inflammation; I83.12 - Varicose veins of left lower extremity with inflammation (2) Venous insufficiency of both lower extremities Status: Chronic Current Visit: Yes Code(s): I87.2 - Venous insufficiency ( chronic) (peripheral) (3) Ulcer of left lower extremity with fat layer exposed Status: Chronic Current Visit: No Code(s): L97.922 - Non-pressure chronic ulcer of unspecified part of left lower leg with fat layer exposed (4) Ulcer of right lower extremity with fat layer exposed Status: Chronic Current Visit: No Code(s): L97.912 - Non-pressure chronic ulcer of unspecified part of right lower leg with fat layer exposed (5) Delayed wound healing Status: Chronic Current Visit: Yes Code(s): T14.8XXD - Other injury of unspecified body region, subsequent encounter (6) Non-pressure chronic ulcer of other part of left foot limited to breakdown of skin Status: Acute Current Visit: Yes Code(s): L97.521 - Non-pressure chronic ulcer of other part of left foot limited to breakdown of skin (7) Non-pressure chronic ulcer of other part of right lower leg limited to breakdown of skin Status: Acute Current Visit: Yes Code(s): L97.811 - Non-pressure chronic ulcer of other part of right lower leg limited to breakdown of skin Type of Wound Date of Service: 11/05/17 Chief Complaint: Lower extremity ulcer and Maceration s/p recent hospital admission. History of Wound: Ms. Duque is a 66-year-old with a complex past medical history who is here as a follow up from recent hospital admission for lower extremity edema/ulcers. She has been seen here in the past most recently in May and typically does not routinely follow-up. She was seen most recently in the hospital and managed as a case of bilateral lower extremity ulcers and maceration. She was also noted to have significant maceration of both feet with foul-smelling creamy discharge and toe deformities. She is a poor historian and cannot really give a clear history of onset. She was noted to have had an Quincy wrap/Unna boot on for about 2 months. She was seen by Dr. Michael and surgical debridement was recommended however, patient declined. She had venous studies done in July which were without any significant abnormalities. She saw Dr. Alicea previously and she recommended podiatry. Pt has superficial macerated ulcerations diffusely on the legs as well as dorsal bilateral forefeet. Ulcerations appear due to drainage. Pt has poor hygeine. Of note, patient was discharged by home health due to bed bug infestation in her house. 09/15--Improving with Quincy wraps for compression, silver cell to open area on R francis, weaving aquacel ag interdigitally. Pt did come in last Thursday for nurse visit. Denies N/V/F/C. Denies pus, malodor, warmth, pain. Continued swelling of legs. Arterial testing scheduled for next week. 09/22-- Still having a lot of drainage with maceration of webspaces due to drainage from her legs. Denies N/V/F/C. Denies pus, malodor, warmth, pain. Continued swelling of legs. Arterial testing reveals non-compressible vessels but triphasic waveforms. Will try Unna boots for irritated skin of legs, swelling. Will start the process of ordering edema pumps. 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 09/29--Still having a lot of drainage with maceration of webspaces due to drainage. Drainage is green. Denies N/V/F/C. Denies pus, malodor, warmth, pain. Continued swelling of legs. Arterial testing reveals non-compressible vessels but triphasic waveforms. Irritated skin of legs worse from Unna boot, switch back to 3M. Needs edema pumps. 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 11/08- Wound care taken over by Duc Silva NP. Continued swelling of legs with worsening redness, clear/yellow drainage coming from multiple superficial ulcerations on BLLE. Pt continues with gentian jose inbetween toes and triamcinolone cream on legs. Will trial drsgs on xerofoam, gauze, and coban. Pt instructed to follow up with derm. Given the symptoms, will also order some rheum labs to see if there is underlying rheum etiology. Progress of Wound: Stable. Has clearish yellow discharge from bilateral superficial ulcerations and an increase in redness. Therefore repeat cultures were obtained. No obvious signs of systemic infection at this time such as fever, chills, warmth, or purulent drainage. - Physical Exam Vital Signs Temp Pulse Resp BP 96.8 F L 69 16 122/83 H 11/05/17 15:08 11/05/17 15:08 11/05/17 15:08 11/05/17 15:08 General: Alert, Oriented x3, Cooperative, No apparent distress HEENT: Atraumatic Lungs: Clear to auscultation Cardiovascular: Regular rate Extremities: Edema - 3+ bilateral lower extremity edema Skin: Ulcer/ Wound - Superficial ulcerations diffusely present on bilateral lower extremities as well as dorsal aspects of feet, small amount of surrounding erythema present however no warmth, malodor, pus or increase in pain Wound Measurements and Assessment WC - Nurse 1 - General Ulcer Measurement Start: 10/29/17 16:26 Freq: Status: Active Protocol: Activity Type Activity Date Activity User E-Sign Co-Sign Detail Recorded Client Recorded Date Recorded By Document 11/05/17 15:08 [facility] [id number] 11/05/17 15:21 [facility] 11/05/17 15:08 Wound Center Nurse 1 [Ulcer Assessment] #5- LLE CIRCUMFERENTIAL -Combined with other wound No -Current Size (cm) - Length 45.5 -Current Size (cm) - Width 46.5 -Current Size (cm) - Depth 0.1 -Total Square Cm 2115.75 -Photo Taken No -Epithelialization None Present -Tunneling No -Undermining/Tunneling No -Circular Undermining No -Classification - Thickness Full Thickness without Exposed Support Structure -Change in Wound Grade/Stage No Query Text:If change please identify the Stage/Grade in the comment (ie. S2 G3) -Exudate Amt Large (67-100%) -Exudate Type Serous -Wound Margin Indistinct, Non -Visible -Granulation Amt None Present (0 %) -Slough/Fibrin Yes -Necrosis Amt Large (67-100%) -Necrotic Tissue Type Adherent Slough -Structure Exposed None/Limited to Skin Breakdown -Texture (Melvi-wound Skin Appearance) Assessed Localized Edema -Moisture (Melvi-wound Skin Appearance Assessed ) Maceration Weeping -Color (Melvi-wound Skin Appearance) Assessed Erythema -Temperature (Melvi-wound Skin No Abnormality Appearance) (Pt Warm) -Ulcer Cleansing Wound Cleanser -Foul Odor after Cleansing No -Anesthetic Used 4% Lidocaine Solution #4- RLE CIRCUMFERENTIAL -Combined with other wound No -Current Size (cm) - Length 49.5 -Current Size (cm) - Width 46.5 -Current Size (cm) - Depth 0.1 -Total Square Cm 2301.75 -Photo Taken No -Epithelialization None Present -Tunneling No -Undermining/Tunneling No -Circular Undermining No -Classification - Thickness Full Thickness without Exposed Support Structure -Change in Wound Grade/Stage No Query Text:If change please identify the Stage/Grade in the comment (ie. S2 G3) -Exudate Amt Large (67-100%) -Exudate Type Serous -Wound Margin Indistinct, Non -Visible -Granulation Amt None Present (0 %) -Necrosis Amt Large (67-100%) -Necrotic Tissue Type Adherent Slough -Structure Exposed None/Limited to Skin Breakdown -Texture (Melvi-wound Skin Appearance) Assessed Localized Edema -Moisture (Melvi-wound Skin Appearance Assessed ) Maceration Weeping -Color (Melvi-wound Skin Appearance) Assessed Erythema -Temperature (Melvi-wound Skin No Abnormality Appearance) (Pt Warm) -Tenderness on Palpation (Melvi-wound No Skin Appearance) -Ulcer Cleansing Wound Cleanser -Foul Odor after Cleansing No -Anesthetic Used 4% Lidocaine Solution [Edema Assessment] -Right Calf (cm) 46.5 -Right Ankle (cm) 25.5 -Left Calf (cm) 45.5 -Left Ankle (cm) 23.3 WC - Nurse 2 - General Ulcer CM Notes Start: 10/29/17 16:26 Freq: Status: Active Protocol: Activity Type Activity Date Activity User E-Sign Co-Sign Detail Recorded Client Recorded Date Recorded By Document 11/05/17 16:50 DV [id number] 11/05/17 16:58 DV 11/05/17 16:50 Wound Center Nurse 2 [Procedure/Treatment] #5- LLE CIRCUMFERENTIAL -Time 16:50 -Correct Patient Yes -Procedure Performed No -Wound/Ulcer Outcome Not Healed #4- RLE CIRCUMFERENTIAL -Time 16:52 -Correct Patient Yes -Procedure Performed No -Wound/Ulcer Outcome Not Healed [See Physician Procedure note for Specifics] Pain Scale: 0-10 Numeric [Pain] -Is Patient Pain Free? Yes Neurological: Neuro grossly intact Psych/Mental Status: Anxious Debridement Note Post-Debridement Measurements/Treatment WC - Nurse 2 - General Ulcer CM Notes Start: 10/29/17 16:26 Freq: Status: Active Protocol: Activity Type Activity Date Activity User E-Sign Co-Sign Detail Recorded Client Recorded Date Recorded By Document 11/05/17 16:50 DV [id number] 11/05/17 16:58 DV 11/05/17 16:50 Wound Center Nurse 2 #5- LLE CIRCUMFERENTIAL -Time 16:50 -Correct Patient Yes -Procedure Performed No -Wound/Ulcer Outcome Not Healed #4- RLE CIRCUMFERENTIAL -Time 16:52 -Correct Patient Yes -Procedure Performed No -Wound/Ulcer Outcome Not Healed Pain Scale: 0-10 Numeric Is Patient Pain Free? Yes No debridement was completed today Assessment/Plan Active Problems Venous insufficiency of both lower extremities (Chronic) Delayed wound healing (Chronic) Non-pressure chronic ulcer of other part of right lower leg limited to breakdown of skin (Acute) Non-pressure chronic ulcer of other part of left foot limited to breakdown of skin (Acute) Stasis dermatitis of both legs (Chronic) Assessment: see diagnoses Plan: The patient was seen and examined at the wound center today and was updated on the plan of care. The patient does have a history of arterial femoral pop bypass right lower extremity. Previous arterial Dopplers of the lower extremities revealed noncompressible vessels but triphasic waveforms bilaterally and recent venous duplex demonstrated absent vein due to bypass but remaining veins competent. No debridement was done today the patients wound care will consist of: Applying Xeroform, gauze, and Coban. Wound cultures were collected. Given patient's symptoms, basic rheum labs were ordered to see if a rheumatology component is playing a part in her condition. Patient does not wish to continue the triamcinolone cream so this was discontinued. She may continue with the gentian jose in between her toes. Patient educated on the importance of diet on wound healing and instructed to increase protein and vitamin C intake. Patient verbalized understanding. Patient will follow up at wound healing center in one week or sooner if needed. Will start the process of ordering edema pumps as well. This note was generated with [employer] dictation software. It may contain incorrect words, spelling, and punctuation that were not noted in checking the note before signing. Code Visit Office Visits / Consults: [id number] OV L4 Est
[2017-11-09 14:53] LABS: ANTINUCLEAR ANTIBODIES DIRECT Negative (Negative)
[2017-11-19 16:46] VITALS: BP 147/57; PULSE 70; RESP 18; TEMP 36.4
--- NOTE | 2017-11-19 19:01 | PCM.WC.PN ---
(1) Stasis dermatitis of both legs Status: Chronic Code(s): I83.11 - Varicose veins of right lower extremity with inflammation; I83.12 - Varicose veins of left lower extremity with inflammation (2) Venous insufficiency of both lower extremities Status: Chronic Code(s): I87.2 - Venous insufficiency (chronic) (peripheral) (3) Ulcer of left lower extremity with fat layer exposed Status: Chronic Code(s): L97.922 - Non-pressure chronic ulcer of unspecified part of left lower leg with fat layer exposed (4) Ulcer of right lower extremity with fat layer exposed Status: Chronic Code(s): L97.912 - Non-pressure chronic ulcer of unspecified part of right lower leg with fat layer exposed (5) Delayed wound healing Status: Chronic Code(s): T14.8XXD - Other injury of unspecified body region, subsequent encounter (6) Non-pressure chronic ulcer of other part of left foot limited to breakdown of skin Status: Acute Code(s): L97.521 - Non-pressure chronic ulcer of other part of left foot limited to breakdown of skin (7) Non-pressure chronic ulcer of other part of right lower leg limited to breakdown of skin Status: Acute Code(s): L97.811 - Non-pressure chronic ulcer of other part of right lower leg limited to breakdown of skin Type of Wound Date of Service: 11/19/17 Chief Complaint: Lower extremity ulcer and Maceration s/p recent hospital admission. History of Wound: Ms. Duque is a 66-year-old with a complex past medical history who is here as a follow up from recent hospital admission for lower extremity edema/ulcers. She has been seen here in the past most recently in May and typically does not routinely follow-up. She was seen most recently in the hospital and managed as a case of bilateral lower extremity ulcers and maceration. She was also noted to have significant maceration of both feet with foul-smelling creamy discharge and toe deformities. She is a poor historian and cannot really give a clear history of onset. She was noted to have had an Quincy wrap/Unna boot on for about 2 months. She was seen by Dr. Michael and surgical debridement was recommended however, patient declined. She had venous studies done in July which were without any significant abnormalities. She saw Dr. Alicea previously and she recommended podiatry. Pt has superficial macerated ulcerations diffusely on the legs as well as dorsal bilateral forefeet. Ulcerations appear due to drainage. Pt has poor hygeine. Of note, patient was discharged by home health due to bed bug infestation in her house. 09/15--Improving with Quincy wraps for compression, silver cell to open area on R francis, weaving aquacel ag interdigitally. Pt did come in last Thursday for nurse visit. Denies N/V/F/C. Denies pus, malodor, warmth, pain. Continued swelling of legs. Arterial testing scheduled for next week. 09/22--Still having a lot of drainage with maceration of webspaces due to drainage from her legs. Denies N/V/F/C. Denies pus, malodor, warmth, pain. Continued swelling of legs. Arterial testing reveals non-compressible vessels but triphasic waveforms. Will try Unna boots for irritated skin of legs, swelling. Will start the process of ordering edema pumps. 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 09/29--Still having a lot of drainage with maceration of webspaces due to drainage. Drainage is green. Denies N/V/F/C. Denies pus, malodor, warmth, pain. Continued swelling of legs. Arterial testing reveals non-compressible vessels but triphasic waveforms. Irritated skin of legs worse from Unna boot, switch back to 3M. Needs edema pumps. 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 11/08- Wound care taken over by Duc Silva NP. Continued swelling of legs with worsening redness, clear/yellow drainage coming from multiple superficial ulcerations on BLLE. Pt continues with gentian jose inbetween toes and triamcinolone cream on legs. Will trial drsgs on xerofoam, gauze, and coban. Pt instructed to follow up with derm. Given the symptoms, will also order some rheum labs to see if there is underlying rheum etiology. Progress of Wound: Stable. Has clear discharge from bilateral superficial ulcerations and an increase in redness. Therefore repeat cultures were obtained and demonstrated Proteus, Pseudomonas, and staph, ciprofloxacin was called in for the patient, however she never picked up the antibiotic and states that the visiting nurse service did not receive the antibiotic and did not receive the wound care supplies that she was supposed to be utilizing. Therefore she has just been having her legs wrapped with gauze and washing them with soap and water. - Physical Exam Vital Signs Temp Pulse Resp BP 97.6 F L 70 18 147/57 H 11/19/17 16:46 11/19/17 16:46 11/19/17 16:46 11/19/17 16:46 General: Alert, Oriented x3, Cooperative, No apparent distress Extremities: Edema - 3+ bilateral lower extremity edema Skin: Ulcer/ Wound - Superficial skin ulcers present bilateral lower extremities surrounding erythema present, serous drainage present on dressing, no warmth. Neurological: Neuro grossly intact Psych/Mental Status: Agitated, Anxious Debridement Note Post-Debridement Measurements/Treatment WC - Nurse 2 - General Ulcer CM Notes Start: 10/29/17 16:26 Freq: Status: Active Protocol: Activity Type Activity Date Activity User E-Sign Co-Sign Detail Recorded Client Recorded Date Recorded By Document 11/05/17 16:50 DV [id number] 11/05/17 16:58 DV Document 11/19/17 18:03 DV [id number] 11/19/17 18:13 DV 11/05/17 11/19/17 16:50 18:03 Wound Center Nurse 2 #5- LLE CIRCUMFERENTIAL -Time 16:50 -Correct Patient Yes -Procedure Performed No -Wound/Ulcer Outcome Not Healed #4- RLE CIRCUMFERENTIAL -Time 16:52 -Correct Patient Yes -Procedure Performed No -Wound/Ulcer Outcome Not Healed Pain Scale: 0-10 Numeric Is Patient Pain Free? Yes No No debridement was completed today Assessment/Plan Active Problems Malaise (Acute) Fever (Acute) Assessment: see diagnoses Plan: The patient was seen and examined at the wound center today and was updated on the plan of care. Wound cultures were reviewed and she was previously placed on ciprofloxacin which she has not started yet. Previous wound care was supposed to consist of rinsing the affected extremities and dynahex, then wrapped in Xeroform gauze and Coban, however patient claims that visiting nursing services did not deliver the supplies. Patient very noncompliant and discussed the subject of her seeking care in a long-term care facility and patient became upset and noted that she did not want to go this route. The patient does have a history of arterial femoral pop bypass right lower extremity. Previous arterial Dopplers of the lower extremities revealed noncompressible vessels but triphasic waveforms bilaterally and recent venous duplex demonstrated absent vein due to bypass but remaining veins competent. No debridement was done today. Patient does not wish to continue the triamcinolone cream so this was discontinued. She may continue with the gentian jose in between her toes. Patient educated on the importance of diet on wound healing and instructed to increase protein and vitamin C intake. Patient verbalized understanding. Patient will follow up at wound healing center in one week or sooner if needed. Discussed importance of starting her antibiotic as soon as possible and educated patient on the signs and symptoms of cellulitis and to seek emergent medical attention if these occur. Will start the process of ordering edema pumps as well. This note was generated with [employer] dictation software. It may contain incorrect words, spelling, and punctuation that were not noted in checking the note before signing. Code Visit Office Visits / Consults: [id number] OV L3 Est
== END 2017-11-26 23:59 ==
LOC: WC 15:30
PROVIDERS: Family Provider Internal Medicine; PCP Internal Medicine; Visit Provider Nurse Practitioner Family
DX: I83.218 Varicose veins of right lower extremity with both ulcer of other part of lower extremity and inflammation (principal); I83.228 Varicose veins of left lower extremity with both ulcer of other part of lower extremity and inflammation; L97.811 Non-pressure chronic ulcer of other part of right lower leg limited to breakdown of skin; L97.821 Non-pressure chronic ulcer of other part of left lower leg limited to breakdown of skin; R60.0 Localized edema; M79.89 Other specified soft tissue disorders; Z91.19 Patient's noncompliance with other medical treatment and regimen
CPT/HCPCS: 85652; 86038; 86140; 87070; 87075; 87077; 87186; 87205; 99213; G0463

== ENCOUNTER 2017-11-25 00:33 | Inpatient (IN) | payer MEDICAID, SELFPAY ==
[2017-11-25] VITALS (17 sets, daily range): BP systolic 109–156; BP diastolic 45–60; PULSE 76–90; RESP 14–20; TEMP 36.4–37.4; O2SAT 92–99; BMI 33.4; BMI 32.5; BMI 32.6
[2017-11-25 01:08] LABS: Absolute Neutrophil Count 6.6 X10^3/uL (2.0-7.7); Eosinophil# 0.14 X10^3/uL; Eosinophils% 1.8 % (0-5); Hematocrit 29.4 % (37-47); Hemoglobin 9.2 g/dl (12.0-15.0); Lymphocyte % 6.5 % (19-41); Mean Corp Hgb Conc 31.3 g/gl (32-36); Mean Corpuscular Hgb 29.8 pg (27.0-32.0); Mean Corpuscular Volume 95.1 fL (81-99); Mean Platelet Vol. 9.7 fl (6.2-12.0); Monocyte# 0.42 X10^3/uL; Monocyte% 5.5 % (0-10); Neutrophil # 6.62 X10^3/uL (2.7-7.7); Neutrophil % 86.1 % (47-70); Platelet Count 116 K/mm3 (150-450); RBC Distribution Width CV 17.6 % (11.6-14.6); Red Blood Count 3.09 M/mm3 (4.2-5.4); White Blood Count 7.7 K/mm3 (4.4-11.0)
[2017-11-25 01:13] LABS: Differential Indicated SCAN CRITERIA MET; POSITIVE COUNT NO; POSITIVE DIFFERENTIAL YES; POSITIVE MORPHOLOGY NO
[2017-11-25 01:30] LABS: Differential Comment SCANNED
--- NOTE | 2017-11-25 01:34 | ED.RN ---
LAB CALLS WITH CRITICAL RESULT, POTASSIUM 6.9, DR. LOERA MADE AWARE.
[2017-11-25 01:35] LABS: Anion Gap 8 (5-15); BUN 72 mg/dL (7-18); BUN/Creat Ratio 30.4 RATIO (10-20); Calcium,Total 8.2 mg/dL (8.5-10.1); Chloride 115 mmol/L (98-107); Creatinine, Serum 2.37 mg/dL (0.55-1.02); EST Glomerular Filtration Rate 22 mL/min (>60); Est Glom Filt Rate - Afr Amer 26 mL/min (>60); Estimated Creatinine Clearance 23.24 ml/min; Glucose 277 mg/dL (74-106); Potassium 6.9 mmol/L (3.5-5.1); Sodium Level 142 mmol/L (136-145)
--- NOTE | 2017-11-25 01:36 | EKG12_ITS ---
Test Reason : ELEVATED POTASIUM Blood Pressure : / mmHG Vent. Rate : 078 BPM Atrial Rate : 078 BPM P-R Int : 150 ms QRS Dur : 072 ms QT Int : 334 ms P-R-T Axes : 033 026 046 degrees QTc Int : 380 ms Normal sinus rhythm Normal ECG Confirmed by DILLON TREJO ([id number]), image editor PROMISE DICKINSON ([id number]) on 12/07/2017 5:49:05 PM Referred By: EVARISTO Confirmed By:DILLON TREJO
[2017-11-25 01:47] LABS: Lactic Acid 1.1 mmol/L (0.4-2.0)
[2017-11-25] MEDS: Albuterol 2.5 MG/3 ML VIAL.NEB. INHALATION (02:07)
--- NOTE | 2017-11-25 02:07 | ED.DCSUM_ITS ---
- ER Visit Summary Date of Service: 11/25/17 Chief Complaint: I was not feeling good. History of Present Illness: The patient is a 67 F who presents just not feeling well. She first began to feel ill yesterday. She states she felt warm today but did not check her temperature she was concerned she had a fever. She reports nausea but no vomiting. She has had diarrhea. She currently complains of a headache. She does have a history of lower extremity cellulitis and wounds. She did have her legs dressed by nursing yesterday. Physical Examination: Afebrile vitals essentially unremarkable Dry mucous membranes Heart regular rate and rhythm Lungs are clear Abdomen soft Patient has severe cellulitis of bilateral lower extremities there erythematous and weeping with some superficial sloughing of the skin Test Results: EKG shows sinus rhythm at a rate of 78. Labs notable for hemoglobin 9.2. Creatinine of 2.37 which is elevated from baseline with a BUN of 72. Potassium is 6.9. Lactic acid is normal. Emergency Department Course and Treatment: Has significant cellulitis of the bilateral lower extremities. She was treated with cefepime and vancomycin. Although her potassium is 6.9 I did not appreciate any acute EKG changes. She has been treated with IV fluids albuterol and Kayexalate. I do not believe she has an indication for calcium at this time. This will need closely monitored. Patient discussed with the hospitalist will be admitted. Treatment Plan: [] Disposition: Admit Impression: Acute kidney injury Hyperkalemia Cellulitis bilateral lower extremities This note was generated with [employer] dictation software. It may contain incorrect words, spelling, and punctuation that were not noted in review of the chart prior to signing ED Disposition - Plan for ED Patient: Chief Complaint: Fever Referrals: Kim Field MD [Primary Care Provider] -
[2017-11-25] MEDS: 0.9% Normal Saline 1,000 ML 999 ML IV (02:10)
[2017-11-25] MEDS: Sodium Polystyrene Sulfonate 15 GM/60 ML UDC 30 GM PO (02:20)
--- NOTE | 2017-11-25 02:23 | ED.RN ---
per Dr. Echeverria stop the infusion of Vancomycin. Vancomycin infusion stopped.
--- NOTE | 2017-11-25 03:34 | PCM.HP.STD ---
Problem List (1) Malaise Status: Acute (2) Fever Status: Acute Qualifiers: Fever type: unspecified Qualified Code(s): R50.9 - Fever, unspecified History of Present Illness Date of Admission: 11/25/17 Chief Complaint: Fever, malaise The patient is a 67 year old F was seen in the emergency room at [facility] after being brought in by squad with complaints of malaise and possible fever at home. She was nonspecific about how high her temperature was at home. Patient is a very poor informant, she has been hospitalized many times before and she lives with her brother who she states provides very little health care for her. Patient states she has visiting nurse service, she was recently placed on oral antibiotics by the wound center but according to the patient, she could not find anybody to tack picker her antibiotic prescription so she went without taking antibiotics. Review of her medical record in the computer shows that a wound culture was done on her right leg and read out on 11/05/17. Multiple organisms were cultured from the right leg which includes Proteus, Pseudomonas, and methicillin sensitive staph. I reviewed the patient's medical records from September of this year, arrangements were made for the patient to go to a nursing facility for ongoing care but beds were not available when she was discharged and so she returned home with home nursing. I have concerns that the patient is not able to take care of herself and in fact is showing self-neglect. When I confronted the patient about her not following medical instructions, she became irritated and admitted that she was not following instructions that were given to her regarding her medical care. Labs obtained in the emergency room showed her white blood cell count to be normal at 7.7, hemoglobin was 9.2, potassium was elevated at 6.9, creatinine was 2.37, BUN was elevated at 72, glucose was 277, and lactic acid was 1.1. Patient's temp was 99.4. Examination of the patient's lower legs show evidence of chronic lymphedematous changes with reddened skin and evidence of what appears to be methylene blue application to areas between her toes-this was probably done at the wound care center. I talked to the patient about her medications, she does not know any of her medications, she was also supposed to follow-up with nephrology according to her last hospitalization, patient denies following up with nephrology at all. Patient was given IV cefepime in the emergency room, she was also given Kayexalate, she will be admitted to PCU for hyperkalemia and cellulitis of the legs, she will be seen by infectious diseases and labs will be monitored. Patient will need placement in fpc facility-it is evident that she is not able to provide care for herself. Past Medical History Past Medical History (Chronic Problems): Chronic Problems Venous insufficiency of both lower extremities (Chronic) Other specified peripheral vascular diseases (Chronic) Ulcer of left lower extremity with fat layer exposed (Chronic) Ulcer of right lower extremity with fat layer exposed (Chronic) Delayed wound healing (Chronic) Noncompliance with treatment regimen (Chronic) 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) Aortic stenosis, mild (Chronic) Pulmonary arterial hypertension (Chronic) Pulmonary nodules (Chronic) Cholelithiasis (Chronic) Tricuspid regurgitation (Chronic) History of esophageal reflux (Chronic) History of hyperlipidemia (Chronic) History of hypertension (Chronic) S/P CABG (coronary artery bypass graft) (Chronic) Obesity (BMI 30.0-34.9) (Chronic) Stasis dermatitis of both legs (Chronic) 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) Thrombocytopenia (Chronic) Neuropathy, peripheral (Chronic) Allergies Penicillins Allergy (Verified 11/25/17 00:37) Rash rosiglitazone maleate [From Avandia] Allergy (Verified 11/25/17 00:37) Swelling & diarrhea simvastatin [From Zocor] Allergy (Verified 11/25/17 00:37) Muscle weakness atorvastatin calcium [From Lipitor] Adverse Reaction (Verified 11/25/17 00:37) Muscle weakness esomeprazole magnesium [From Nexium] Adverse Reaction (Verified 11/25/17 00:37) Diarrhea lansoprazole [From Prevacid] Adverse Reaction (Verified 11/25/17 00:37) Diarrhea Sulfa (Sulfonamide Antibiotics) Adverse Reaction (Verified 11/25/17 00:37) Nausea/Vom/Diarrhea from PCP office records Home Medications: Ambulatory Orders Medication Instructions Recorded Aspirin [Aspirin, Baby] 81 mg PO DAILY@0800 10/20/14 Ferrous Gluconate 325 mg PO DAILY@0800 10/21/14 Metoprolol Tartrate [Lopressor 100 mg PO BID 10/21/14 (beta apryl)] Pantoprazole Sodium [Protonix] 40 mg PO BID 10/21/14 Rosuvastatin Calcium [Crestor] 2.5 mg PO QHS 10/21/14 Nitroglycerin [Nitrostat] 0.4 mg SUBLINGUAL Q5M PRN 11/24/14 Gabapentin [Neurontin] 100 mg PO BID 07/02/15 Ergocalciferol [Vitamin D] 50,000 units PO SA 02/16/16 Niacinamide [Niacin] 500 mg PO BID 02/16/16 Montelukast Sodium [Singulair] 10 mg PO QHS 05/06/16 Ondansetron [Zofran Odt] 8 mg PO Q6H PRN PRN 03/31/17 Insulin Glargine,Hum.rec.anlog 52 unit SQ QHS 08/20/17 [Basaglar Kwikpen U-100] Insulin Aspart [Novolog Flexpen] 20 units SC TIDAC 10/08/17 Amlodipine [Norvasc] 5 mg PO DAILY 10/12/17 Sucralfate [Carafate] 1 gm PO 4X/DAY 10/12/17 Clopidogrel Bisulfate [Plavix] 75 mg PO DAILY #30 tab 10/16/17 Furosemide [Lasix] 40 mg PO BID #60 tab 10/16/17 Isosorbide Mononitrate [Imdur] 60 mg PO DAILY #30 tab 10/16/17 Surgical History: coronary bypass surgery, - - Right femoral bypass surgery, cochlear impants Psychiatric History: No pertinent psych hx 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 Denies: Anorexia, Chills, Night Sweats Eyes: Denies: Blurred vision, Cataracts, Conjunctivae Inflammation, Double vision, Drainage, Pain, Redness HEENT: Denies: Difficulty Swallowing, Dysphasia, Ear Pain, Eye Pain, Hearing Changes, Nasal bleeding, Nasal Congestion, Post Nasal Drip Cardiovascular: Denies: Chest Pain, Claudication, Chest Pressure, Chest Tightness, Edema, Orthopnea, Palpitations, Paroxysmal Noc. Dyspnea Respiratory: Denies: Cough, Hemoptysis, Pleuritic Pain, Shortness of Breath Gastrointestinal: Denies: Abdominal Pain, Constipation, Diarrhea, Hematemesis, Hematochezia, Nausea, Vomiting Genitourinary: Denies: Dysuria, Frequency, Hematuria, Incontinence, Nocturia, Retention Gynecological: Denies: Breast symptoms Musculoskeletal: Reports: Leg Pain. Denies: Back Pain, Foot Pain, Hand Pain, Joint swelling, Joint Tenderness Skin: Reports: Skin Changes - She has chronic skin changes over both lower legs Neurological: Denies: Blurred vision, Double vision, Change in Speech, Difficulty swallowing, Focal weakness, Headaches, Incoordination Psychiatric: Denies: Anxiety, Homicidal Ideations, Suicidal Ideations VTE Information - Inpt Only VTE Present on Admission: No VTE Mechan Device Prophylaxis: None VTE Pharm Prophylaxis ordered?: Yes Patient Problems: Active and Suspected Problems Malaise (Acute) Fever (Acute) - Physical Exam General: Alert, Oriented x3, Cooperative, No apparent distress, Well developed, - - Patient is a poor informant, overall hygiene is poor HEENT: Atraumatic, PERRLA, EOMI, Normocephalic Oral: Moist Mucosa Neck: Supple, No JVD, Negative Carotid Bruits, No Nuchal Rigidity, Trachea Midline, Thyroid Normal Size and Texture Lungs: Clear to auscultation, Normal air movement, No rhonchi, No wheeze, No rales Cardiovascular: Regular rate, Regular Rhythm, Normal S1, Normal S2, Murmur - 2/6 systolic murmur noted at the left sternal border and apex Abdomen: Bowel Sounds Present, Soft, Non Tender, Non-Distended, Obese Extremities: No clubbing, No cyanosis, Capillary Refill Less than 3 Seconds, Edema - Generalized edema is noted over both lower legs, there are stasis changes of both lower legs noted Skin: No breakdown, Rash Present - rash present over the patient's lower legs bilaterally, this appears to be chronic in nature Musculoskeletal: Tenderness - Tenderness to palpation is noted over both lower legs Neurological: Cranial nerves II-XII grossly intact, Neuro grossly intact, Sensory exam intact to light touch and pain Psych/Mental Status: Normal Affect, Appropriate Vital Signs Temp Pulse Resp BP Pulse Ox 99.4 F H 80 20 H 130/52 H 95 11/25/17 02:12 11/25/17 02:30 11/25/17 02:30 11/25/17 02:30 11/25/17 02:30 Oxygen Delivery Method Room Air Assessment/Plan Active and Suspected Problems Malaise (Acute) Fever (Acute) #1 hyperkalemia-etiology is unknown, patient had been on Spironolactone in the past, she does not know any of her medications, it is possible that she may be taking some of her old medications. Patient will receive Kayexalate and labs will be rechecked #2 bilateral lower leg cellulitis on a backdrop of chronic lymphedematous skin changes and chronic skin discoloration-patient will be admitted to PCU, IV cefepime will be continued, she will be seen in consultation by infectious diseases, Quincy wraps will be maintained to the lower legs #3 type 2 [id number] sugars will be monitored and sliding scale insulin will be administered, it is not possible to determine how much insulin she takes at home due to the fact she is such a poor informant, I will scale down her last known insulin dosage and blood sugars will be monitored #4 chronic lymphedema of the legs #5 acute on chronic renal failure-patient will be placed on 75 cc an hour of normal saline, labs will be rechecked #6 noncompliance with medical regimen-patient will need placement in a fpc facility #7 moderate aortic stenosis #8 pulmonary hypertension #9 self-neglect #10 anemia of chronic disease Code Visit Inpatient E&M: 13145 Init Hosp L3
--- NOTE | 2017-11-25 03:44 | HP.PCM_ITS ---
Problem List (1) Malaise Status: Acute (2) Fever Status: Acute Qualifiers: Fever type: unspecified Qualified Code(s): R50.9 - Fever, unspecified History of Present Illness Date of Admission: 11/25/17 Chief Complaint: Fever, malaise The patient is a 67 year old F was seen in the emergency room at [facility] after being brought in by squad with complaints of malaise and possible fever at home. She was nonspecific about how high her temperature was at home. Patient is a very poor informant, she has been hospitalized many times before and she lives with her brother who she states provides very little health care for her. Patient states she has visiting nurse service, she was recently placed on oral antibiotics by the wound center but according to the patient, she could not find anybody to picker and sorter load and unload her antibiotic prescription so she went without taking antibiotics. Review of her medical record in the computer shows that a wound culture was done on her right leg and read out on 04/15. Multiple organisms were cultured from the right leg which includes Proteus, Pseudomonas, and methicillin sensitive staph. I reviewed the patient' s medical records from September of this year, arrangements were made for the patient to go to a nursing facility for ongoing care but beds were not available when she was discharged and so she returned home with home nursing. I have concerns that the patient is not able to take care of herself and in fact is showing self-neglect. When I confronted the patient about her not following medical instructions, she became irritated and admitted that she was not following instructions that were given to her regarding her medical care. Labs obtained in the emergency room showed her white blood cell count to be normal at 7.7, hemoglobin was 9.2, potassium was elevated at 6.9, creatinine was 2.37, BUN was elevated at 72, glucose was 277, and lactic acid was 1.1. Patient's temp was 99.4. Examination of the patient's lower legs show evidence of chronic lymphedematous changes with reddened skin and evidence of what appears to be methylene blue application to areas between her toes-this was probably done at the wound care center. I talked to the patient about her medications, she does not know any of her medications, she was also supposed to follow-up with nephrology according to her last hospitalization, patient denies following up with nephrology at all. Patient was given IV cefepime in the emergency room, she was also given Kayexalate, she will be admitted to PCU for hyperkalemia and cellulitis of the legs, she will be seen by infectious diseases and labs will be monitored. Patient will need placement in correction facility-it is evident that she is not able to provide care for herself. Past Medical History Past Medical History (Chronic Problems): Chronic Problems Venous insufficiency of both lower extremities (Chronic) Other specified peripheral vascular diseases (Chronic) Ulcer of left lower extremity with fat layer exposed (Chronic) Ulcer of right lower extremity with fat layer exposed (Chronic) Delayed wound healing (Chronic) Noncompliance with treatment regimen (Chronic) 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) Aortic stenosis, mild (Chronic) Pulmonary arterial hypertension (Chronic) Pulmonary nodules (Chronic) Cholelithiasis (Chronic) Tricuspid regurgitation (Chronic) History of esophageal reflux (Chronic) History of hyperlipidemia (Chronic) History of hypertension (Chronic) S/P CABG (coronary artery bypass graft) (Chronic) Obesity (BMI 30.0-34.9) (Chronic) Stasis dermatitis of both legs (Chronic) 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) Thrombocytopenia (Chronic) Neuropathy, peripheral (Chronic) Allergies Penicillins Allergy (Verified 11/25/17 00:37) Rash rosiglitazone maleate [From Avandia] Allergy (Verified 11/25/17 00:37) Swelling & diarrhea simvastatin [From Zocor] Allergy (Verified 11/25/17 00:37) Muscle weakness atorvastatin calcium [From Lipitor] Adverse Reaction (Verified 11/25/17 00:37) Muscle weakness esomeprazole magnesium [From Nexium] Adverse Reaction (Verified 11/25/17 00:37) Diarrhea lansoprazole [From Prevacid] Adverse Reaction (Verified 11/25/17 00:37) Diarrhea Sulfa (Sulfonamide Antibiotics) Adverse Reaction (Verified 11/25/17 00:37) Nausea/Vom/Diarrhea from PCP office records Home Medications: Ambulatory Orders Medication Instructions Recorded Aspirin [Aspirin, Baby] 81 mg PO DAILY@0800 10/20/14 Ferrous Gluconate 325 mg PO DAILY@0800 10/21/14 Metoprolol Tartrate [Lopressor 100 mg PO BID 10/21/14 (beta apryl)] Pantoprazole Sodium [Protonix] 40 mg PO BID 10/21/14 Rosuvastatin Calcium [Crestor] 2.5 mg PO QHS 10/21/14 Nitroglycerin [Nitrostat] 0.4 mg SUBLINGUAL Q5M PRN 11/24/14 Gabapentin [Neurontin] 100 mg PO BID 07/02/15 Ergocalciferol [Vitamin D] 50,000 units PO SA 02/16/16 Niacinamide [Niacin] 500 mg PO BID 02/16/16 Montelukast Sodium [Singulair] 10 mg PO QHS 05/06/16 Ondansetron [Zofran Odt] 8 mg PO Q6H PRN PRN 03/31/17 Insulin Glargine,Hum.rec.anlog 52 unit SQ QHS 08/20/17 [Basaglar Kwikpen U-100] Insulin Aspart [Novolog Flexpen] 20 units SC TIDAC 10/08/17 Amlodipine [Norvasc] 5 mg PO DAILY 10/12/17 Sucralfate [Carafate] 1 gm PO 4X/DAY 10/12/17 Clopidogrel Bisulfate [Plavix] 75 mg PO DAILY #30 tab 10/16/17 Furosemide [Lasix] 40 mg PO BID #60 tab 10/16/17 Isosorbide Mononitrate [Imdur] 60 mg PO DAILY #30 tab 10/16/17 Surgical History: coronary bypass surgery, - - Right femoral bypass surgery, cochlear impants Psychiatric History: No pertinent psych hx [employer]ER History: No pertinent [employer]ASS [employer] T[employer]ER history Lives: With Family Smoking Status: Former smoker Tobacco Use: Non-smoker Alcohol: None Drugs: None - *Family History Sibling History Items: Heart Disease Maternal History Items: No pertinent history Paternal History Items: No pertinent history Review of Systems Constitutional: Reports: Fever, Malaise, Weakness, Fatigue. Denies: Anorexia, Chills, Night Sweats Eyes: Denies: Blurred vision, Cataracts, Conjunctivae Inflammation, Double vision, Drainage, Pain, Redness HEENT: Denies: Difficulty Swallowing, Dysphasia, Ear Pain, Eye Pain, Hearing Changes, Nasal bleeding, Nasal Congestion, Post Nasal Drip Cardiovascular: Denies: Chest Pain, Claudication, Chest Pressure, Chest Tightness, Edema, Orthopnea, Palpitations, Paroxysmal Noc. Dyspnea Respiratory: Denies: Cough, Hemoptysis, Pleuritic Pain, Shortness of Breath Gastrointestinal: Denies: Abdominal Pain, Constipation, Diarrhea, Hematemesis, Hematochezia, Nausea, Vomiting Genitourinary: Denies: Dysuria, Frequency, Hematuria, Incontinence, Nocturia, Retention Gynecological: Denies: Breast symptoms Musculoskeletal: Reports: Leg Pain. Denies: Back Pain, Foot Pain, Hand Pain, Joint swelling, Joint Tenderness Skin: Reports: Skin Changes - She has chronic skin changes over both lower legs Neurological: Denies: Blurred vision, Double vision, Change in Speech, Difficulty swallowing, Focal weakness, Headaches, Incoordination Psychiatric: Denies: Anxiety, Homicidal Ideations, Suicidal Ideations VTE Information - Inpt Only VTE Present on Admission: No VTE Mechan Device Prophylaxis: None VTE Pharm Prophylaxis ordered?: Yes Patient Problems: Active and Suspected Problems Malaise (Acute) Fever (Acute) - Physical Exam General: Alert, Oriented x3, Cooperative, No apparent distress, Well developed, - - Patient is a poor informant, overall hygiene is poor HEENT: Atraumatic, PERRLA, EOMI, Normocephalic Oral: Moist Mucosa Neck: Supple, No JVD, Negative Carotid Bruits, No Nuchal Rigidity, Trachea Midline, Thyroid Normal Size and Texture Lungs: Clear to auscultation, Normal air movement, No rhonchi, No wheeze, No rales Cardiovascular: Regular rate, Regular Rhythm, Normal S1, Normal S2, Murmur - 2/ 6 systolic murmur noted at the left sternal border and apex Abdomen: Bowel Sounds Present, Soft, Non Tender, Non-Distended, Obese Extremities: No clubbing, No cyanosis, Capillary Refill Less than 3 Seconds, Edema - Generalized edema is noted over both lower legs, there are stasis changes of both lower legs noted Skin: No breakdown, Rash Present - rash present over the patient's lower legs bilaterally, this appears to be chronic in nature Musculoskeletal: Tenderness - Tenderness to palpation is noted over both lower legs Neurological: Cranial nerves II-XII grossly intact, Neuro grossly intact, Sensory exam intact to light touch and pain Psych/Mental Status: Normal Affect, Appropriate Vital Signs Temp Pulse Resp BP Pulse Ox 99.4 F H 80 20 H 130/52 H 95 11/25/17 02:12 11/25/17 02:30 11/25/17 02:30 11/25/17 02:30 11/25/17 02:30 Oxygen Delivery Method Room Air Assessment/Plan Active and Suspected Problems Malaise (Acute) Fever (Acute) #1 hyperkalemia-etiology is unknown, patient had been on Spironolactone in the past, she does not know any of her medications, it is possible that she may be taking some of her old medications. Patient will receive Kayexalate and labs will be rechecked #2 bilateral lower leg cellulitis on a backdrop of chronic lymphedematous skin changes and chronic skin discoloration-patient will be admitted to PCU, IV cefepime will be continued, she will be seen in consultation by infectious diseases, [place] wraps will be maintained to the lower legs #3 type 2 [id number] sugars will be monitored and sliding scale insulin will be administered, it is not possible to determine how much insulin she takes at home due to the fact she is such a poor informant, I will scale down her last known insulin dosage and blood sugars will be monitored #4 chronic lymphedema of the legs #5 acute on chronic renal failure-patient will be placed on 75 cc an hour of normal saline, labs will be rechecked #6 noncompliance with medical regimen-patient will need placement in a correction facility #7 moderate aortic stenosis #8 pulmonary hypertension #9 self-neglect #10 anemia of chronic disease Code Visit Inpatient E&M: 17969 Init Hosp L3
[2017-11-25] MEDS: 0.9% Normal Saline 1,000 ML 75 ML IV ×2 (03:55→15:40)
[2017-11-25] MEDS: Sodium Polystyrene Sulfonate 15 GM/60 ML UDC PO ×2 (03:58→15:40)
[2017-11-25] MEDS: Acetaminophen 325 MG Tablet 650 MG PO (04:01)
[2017-11-25 06:00] LABS: Hematocrit 28.1 % (37-47); Hemoglobin 8.9 g/dl (12.0-15.0); Mean Corp Hgb Conc 31.7 g/gl (32-36); Mean Corpuscular Hgb 29.6 pg (27.0-32.0); Mean Corpuscular Volume 93.4 fL (81-99); Mean Platelet Vol. 9.8 fl (6.2-12.0); Platelet Count 98 K/mm3 (150-450); RBC Distribution Width CV 17.8 % (11.6-14.6); RBC Distribution Width SD 61.4 fl (35.1-43.9); Red Blood Count 3.01 M/mm3 (4.2-5.4); White Blood Count 7.4 K/mm3 (4.4-11.0)
[2017-11-25 06:10] LABS: Scan Indicated on CBC? Y/N NO
[2017-11-25 06:20] LABS: Anion Gap 9 (5-15); BUN 61 mg/dL (7-18); BUN/Creat Ratio 32.8 RATIO (10-20); Calcium,Total 7.1 mg/dL (8.5-10.1); Chloride 125 mmol/L (98-107); Creatinine, Serum 1.86 mg/dL (0.55-1.02); EST Glomerular Filtration Rate 29 mL/min (>60); Est Glom Filt Rate - Afr Amer 35 mL/min (>60); Estimated Creatinine Clearance 29.61 ml/min; Glucose 211 mg/dL (74-106); Potassium 5.5 mmol/L (3.5-5.1); Sodium Level 150 mmol/L (136-145)
[2017-11-25] MEDS: Heparin Injection (Vial) 5,000 UNIT/ML VIAL 5000 UNIT SC ×2 (06:50→13:04)
[2017-11-25 07:00] LABS: Bedside Glucose 233 mg/dL (70-110)
[2017-11-25] MEDS: Aspirin 81 MG TAB.CHEW PO (08:09)
[2017-11-25] MEDS: Metoprolol Tartrate 100 MG Tablet PO ×2 (08:10→22:47)
[2017-11-25] MEDS: Isosorbide Mononitrate 60 MG Tablet PO (08:10)
[2017-11-25] MEDS: Glucerna Shake 120 ML LIQUID PO (08:10)
[2017-11-25] MEDS: Ferrous Gluconate 325 MG Tablet PO (08:10)
[2017-11-25] MEDS: Pantoprazole Sodium 40 MG Tablet PO ×2 (08:11→22:47)
[2017-11-25] MEDS: Clopidogrel Bisulfate 75 MG Tablet PO (08:11)
--- NOTE | 2017-11-25 10:17 | NURSING ---
wound photo: right medial lower leg
--- NOTE | 2017-11-25 10:17 | NURSING ---
wound photo: right lateral lower leg
--- NOTE | 2017-11-25 10:18 | NURSING ---
wound photo: left medial lower leg
--- NOTE | 2017-11-25 10:18 | NURSING ---
wound photo: left lateral lower leg
--- NOTE | 2017-11-25 11:13 | CON.PCM_ITS ---
Problem List (1) Bilateral lower leg cellulitis Status: Resolved Reason for Consult: cellulitis Consulted by: Dr. Echeverria History of Present Illness: The patient is a 67 year old F with PVD and chronic leg wounds for several years , follows at wound care center, who presented to ED yesterday with several days of not feeling well, malaise, diarrhea. Some blood on toilet paper. Has remote h/o cdiff. Last course of abx about 1-2 months ago. Having diarrhea about 5 times a day. Legs with some increased redness recently. No drainage currently. Cx was sent at wound care 11/05 due to increased redness and clear yellow drainage, but she was unable to fill rx for abx. In ED, K was elevated. Admitted on cefepime. Diarrhea with incontinence last night after kayexalate. Full ROS performed and neg except as noted above. 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) Aortic stenosis, mild (Chronic) Pulmonary arterial hypertension (Chronic) Pulmonary nodules (Chronic) Cholelithiasis (Chronic) Tricuspid regurgitation (Chronic) History of esophageal reflux (Chronic) History of hyperlipidemia (Chronic) History of hypertension (Chronic) S/P CABG (coronary artery bypass graft) (Chronic) Obesity (BMI 30.0-34.9) (Chronic) Stasis dermatitis of both legs (Chronic) 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) Thrombocytopenia (Chronic) Neuropathy, peripheral (Chronic) Allergies/Adverse Reactions: Allergies Penicillins Allergy (Verified 11/25/17 00:37) Rash rosiglitazone maleate [From Avandia] Allergy (Verified 11/25/17 00:37) Swelling & diarrhea simvastatin [From Zocor] Allergy (Verified 11/25/17 00:37) Muscle weakness atorvastatin calcium [From Lipitor] Adverse Reaction (Verified 11/25/17 00:37) Muscle weakness esomeprazole magnesium [From Nexium] Adverse Reaction (Verified 11/25/17 00:37) Diarrhea lansoprazole [From Prevacid] Adverse Reaction (Verified 11/25/17 00:37) Diarrhea Sulfa (Sulfonamide Antibiotics) Adverse Reaction (Verified 11/25/17 00:37) Nausea/Vom/Diarrhea from PCP office records Home Medications: Ambulatory Orders Medication Instructions Recorded Aspirin [Aspirin, Baby] 81 mg PO DAILY@0800 10/20/14 Ferrous Gluconate 325 mg PO DAILY@0800 10/21/14 Metoprolol Tartrate [Lopressor 100 mg PO BID 10/21/14 (beta apryl)] Pantoprazole Sodium [Protonix] 40 mg PO BID 10/21/14 Rosuvastatin Calcium [Crestor] 2.5 mg PO QHS 10/21/14 Nitroglycerin [Nitrostat] 0.4 mg SUBLINGUAL Q5M PRN 11/24/14 Gabapentin [Neurontin] 100 mg PO BID 07/02/15 Ergocalciferol [Vitamin D] 50,000 units PO SA 02/16/16 Niacinamide [Niacin] 500 mg PO BID 02/16/16 Montelukast Sodium [Singulair] 10 mg PO QHS 05/06/16 Ondansetron [Zofran Odt] 8 mg PO Q6H PRN PRN 03/31/17 Insulin Glargine,Hum.rec.anlog 52 unit SQ QHS 08/20/17 [Basaglar Kwikpen U-100] Insulin Aspart [Novolog Flexpen] 20 units SC TIDAC 10/08/17 Amlodipine [Norvasc] 5 mg PO DAILY 10/12/17 Sucralfate [Carafate] 1 gm PO 4X/DAY 10/12/17 Clopidogrel Bisulfate [Plavix] 75 mg PO DAILY #30 tab 10/16/17 Furosemide [Lasix] 40 mg PO BID #60 tab 10/16/17 Isosorbide Mononitrate [Imdur] 60 mg PO DAILY #30 tab 10/16/17 - Social History SMOKING STATUS:: Former smoker Vital Signs Temp Pulse Resp BP Pulse Ox 98.4 F 76 16 118/50 L 99 11/25/17 09:15 11/25/17 09:15 11/25/17 09:15 11/25/17 09:15 11/25/17 09:15 Oxygen Flow Rate (L/min) 3 Oxygen Delivery Method Nasal Cannula Weight: 97.2 kg Body Mass Index (BMI) 32.5 Laboratory Tests Past 24 Hrs 11/25/17 11/25/17 05:30 05:30 WBC 7.4 RBC 3.01 L Hgb 8.9 L Hct 28.1 L MCV 93.4 MCH 29.6 MCHC 31.7 L RDW 17.8 H RDW Differential 61.4 H Plt Count 98 L MPV 9.8 Sodium 150 H Potassium 5.5 H Chloride 125 H Carbon Dioxide 16.0 L Anion Gap 9 BUN 61 H Creatinine 1.86 H Estim Creat Clear Calc 29.61 Est GFR (MDRD) Af Amer 35 L Est GFR (MDRD) Non-Af 29 L BUN/Creatinine Ratio 32.8 H Glucose 211 H Calcium 7.1 L - Other Studies Radiology: [] reviewed Other Studies: [] Route of nutrition/ use of supplements: [] Nutritional Intake: [] IV Site: [] Blanc Catheter: [] - Physical Exam General: Alert, Cooperative, No apparent distress HEENT: Atraumatic, PERRLA, EOMI Neck: Supple, No Nodes Lungs: Clear to auscultation, Normal air movement Cardiovascular: Regular rate, Regular Rhythm, Murmur Abdomen: Soft, Non Tender, Non-Distended Extremities: Edema Skin: Ulcer/ Wound - BLE diffuse redness and maceration IV Site: Peripheral, without redness Musculoskeletal: No Tenderness to Palpation of Joints or Extremities Neurological: Cranial nerves II-XII grossly intact - Assessment/Plan Antibiotics: [] Assessment/Plan: [] Active and Suspected Problems Malaise (Acute) Fever (Acute) BLE cellulitis - recent wound cx with proteus, CoNS, PsA, burkholderia. Diffuse redness, not much drainage. No fever, normal wbc. Cont cefepime. diarrhea - reports h/o cdiff. Will check. KIM on CKD - improving. Thank you, will follow
--- NOTE | 2017-11-25 11:30 | CASEMGMT ---
ALONSO BARR Face to Face with patient for initial transition planning/care coordination assessment. RN MOMO introduced self and role at [facility]. Patient lying in bed, alert and oriented. Patient willing to participate in assessment and is able to answer all questions appropriately. Care providers, pharmacy, and demographics verified. See link attached. Patient wishes to discharge home with resumption of home health through [facility] at this time. Patient states she has no further needs or concerns at this time. CM to follow for discharge planning needs that may arise. Disposition Plan: Patient to discharge home with [facility] and follow-up plans in place.
[2017-11-25 11:46] LABS: Bedside Glucose 273 mg/dL (70-110)
--- NOTE | 2017-11-25 12:02 | PCM.PN.HOSP ---
Patient Problems: Active and Suspected Problems Malaise (Acute) Fever (Acute) Subjective: Has some generalized aches and pains but denies any shortness of breath or chest pain or abdominal pain. Vitals/I&O's: Vital Signs Temp Pulse Resp BP Pulse Ox 36.9 C 76 16 118/50 L 99 11/25/17 09:15 11/25/17 09:15 11/25/17 09:15 11/25/17 09:15 11/25/17 09:15 Oxygen Flow Rate (L/min) 3 Oxygen Delivery Method Nasal Cannula Weight: 97.2 kg Body Mass Index (BMI) 32.5 Intake and Output for Last 24 Hours 11/23/17 11/24/17 11/25/17 23:59 23:59 23:59 Intake Total 704 / 704 Balance 704 / 704 General: Alert, Cooperative, No apparent distress, - - Disheveled, malodorous. HEENT: Atraumatic, Normocephalic Neck: No Nodes, Thyroid Normal Size and Texture Lungs: Clear to auscultation, Normal air movement, No rhonchi, No wheeze Cardiovascular: Regular rate, Regular Rhythm, Normal S1, Normal S2, No murmurs Abdomen: Bowel Sounds Present, Soft, Non Tender, Non-Distended, No Hepato-splenomegaly Extremities: Edema, - - Lateral lower extremities are wrapped, did not remove. Psych/Mental Status: Normal Affect, Appropriate Laboratory Results 11/25/17 05:30: WBC 7.4, RBC 3.01 L, Hgb 8.9 L, Hct 28.1 L, MCV 93.4, MCH 29.6, MCHC 31.7 L, RDW 17.8 H, RDW Differential 61.4 H, Plt Count 98 L, MPV 9.8 11/25/17 05:30: Sodium 150 H, Potassium 5.5 H, Chloride 125 H, Carbon Dioxide 16.0 L, Anion Gap 9, BUN 61 H, Creatinine 1.86 H, Estim Creat Clear Calc 29.61, Est GFR (MDRD) Af Amer 35 L, Est GFR (MDRD) Non-Af 29 L, BUN/Creatinine Ratio 32.8 H, Glucose 211 H, Calcium 7.1 L 11/25/17 06:48: POC Glucose 233 H 11/25/17 11:38: POC Glucose 273 H Current Medications Acetaminophen (Tylenol) 650 mg PO Q6H PRN PRN PRN Reason: Mild Pain (1-3)/Temp > 100.7 F Last Admin: 11/25/17 04:01 Dose: 650 mg Aspirin (Aspirin, Baby) 81 mg PO DAILY@0800 COUNT INCLUDES THE [facility] Last Admin: 11/25/17 08:09 Dose: 81 mg Clopidogrel Bisulfate (Plavix) 75 mg PO DAILY COUNT INCLUDES THE [facility] Last Admin: 11/25/17 08:11 Dose: 75 mg Dextrose (D50w Syringe) 0 gm IV X1 PRN; Protocol PRN Reason: Hypoglycemia Ferrous Gluconate (Ferrous Gluconate) 325 mg PO DAILY@0800 COUNT INCLUDES THE [facility] Last Admin: 11/25/17 08:10 Dose: 325 mg Glucagon () 1 mg IM .X1 PRN PRN Reason: Hypoglycemia Heparin Sodium (Porcine) (Heparin Na) 5,000 unit SC Q8 COUNT INCLUDES THE [facility] Last Admin: 11/25/17 06:50 Dose: 5,000 units Sodium Chloride () 1,000 mls @ 75 mls/hr IV .[id number] COUNT INCLUDES THE [facility] Last Admin: 11/25/17 03:55 Dose: 75 mls/hr Cefepime HCl 1 gm/ Sodium (Chloride) 50 mls @ 100 mls/hr IV Q24 COUNT INCLUDES THE [facility] Insulin Aspart (Novolog Flexpen (Bkc)) 0 units SC ACHS COUNT INCLUDES THE [facility] PRN Reason: Protocol Last Admin: 11/25/17 11:39 Dose: 9 u Insulin Detemir (Levemir (Bkc)) 20 units SC BID COUNT INCLUDES THE [facility] Last Admin: 11/25/17 08:11 Dose: 20 u Isosorbide Mononitrate (Imdur) 60 mg PO DAILY COUNT INCLUDES THE [facility] Last Admin: 11/25/17 08:10 Dose: 60 mg Magnesium Hydroxide (Milk Of Magnesia) 30 ml PO DAILY PRN PRN Reason: Constipation Metoprolol Tartrate (Lopressor (Beta Richard)) 100 mg PO BID COUNT INCLUDES THE [facility] Last Admin: 11/25/17 08:10 Dose: 100 mg Nutritional Formula (Lactose Free) (Glucerna Shake) 120 ml PO TIDCM COUNT INCLUDES THE [facility] Last Admin: 11/25/17 11:42 Dose: Not Given Pantoprazole Sodium (Protonix) 40 mg PO BID COUNT INCLUDES THE [facility] Last Admin: 11/25/17 08:11 Dose: 40 mg Sodium Chloride () 5 - 30 ml IV UD PRN PRN Reason: SALINE FLUSH Medical Necessity - Tobacco Use Smoking Status: Former smoker Tobacco Use: Non-smoker Assessment/Plan All Active Problems Malaise (Acute) Fever (Acute) Maceration of skin (Acute) Acquired deformity of toe of both feet (Acute) Non-pressure chronic ulcer of other part of right lower leg limited to breakdown of skin (Acute) Non-pressure chronic ulcer of other part of left lower leg limited to breakdown of skin (Resolved) Non-pressure chronic ulcer of other part of right foot limited to breakdown of skin (Acute) Non-pressure chronic ulcer of other part of left foot limited to breakdown of skin (Acute) Type 2 diabetes mellitus with diabetic peripheral angiopathy without gangrene (Acute) Lymphedema in adult patient (Acute) Acute on chronic diastolic heart failure (Acute) Acute CHF (congestive heart failure) (Acute) Acute respiratory failure with hypoxia (Acute) KIM (acute kidney injury) (Ruled-out) Bilateral lower leg cellulitis (Resolved) Diarrhea (Resolved) Cellulitis of right lower extremity (Ruled-out) BRBPR (bright red blood per rectum) (Resolved) C. difficile colitis (Resolved) Hyperkalemia (Resolved) 1. Acute kidney injury Creatinine down to 1.86 from 2.37, baseline creatinine appears to be around 1.6 Continue with IV fluids 2. Hyperkalemia No evidence of hemolysis Did receive total of 45 g of Kayexalate Recheck 3. Bilateral lower extremity cellulitis Polymicrobial On cefepime Infectious disease following 4. IVs mellitus type II Poor control Continue with Levemir and sliding scale NovoLog for now and adjust accordingly. 5. DVT prophylaxis with subcu heparin Code Visit Procedures: Other Procedure - See Report - non-billable rounding.
--- NOTE | 2017-11-25 12:07 | PN_ITS ---
Patient Problems: Active and Suspected Problems Malaise (Acute) Fever (Acute) Subjective: Has some generalized aches and pains but denies any shortness of breath or chest pain or abdominal pain. Vitals/I&O's: Vital Signs Temp Pulse Resp BP Pulse Ox 36.9 C 76 16 118/50 L 99 11/25/17 09:15 11/25/17 09:15 11/25/17 09:15 11/25/17 09:15 11/25/17 09:15 Oxygen Flow Rate (L/min) 3 Oxygen Delivery Method Nasal Cannula Weight: 97.2 kg Body Mass Index (BMI) 32.5 Intake and Output for Last 24 Hours 11/23/17 11/24/17 11/25/17 23:59 23:59 23:59 Intake Total 704 / 704 Balance 704 / 704 General: Alert, Cooperative, No apparent distress, - - Disheveled, malodorous. HEENT: Atraumatic, Normocephalic Neck: No Nodes, Thyroid Normal Size and Texture Lungs: Clear to auscultation, Normal air movement, No rhonchi, No wheeze Cardiovascular: Regular rate, Regular Rhythm, Normal S1, Normal S2, No murmurs Abdomen: Bowel Sounds Present, Soft, Non Tender, Non-Distended, No Hepato- splenomegaly Extremities: Edema, - - Lateral lower extremities are wrapped, did not remove. Psych/Mental Status: Normal Affect, Appropriate Laboratory Results 11/25/17 05:30: WBC 7.4, RBC 3.01 L, Hgb 8.9 L, Hct 28.1 L, MCV 93.4, MCH 29.6, MCHC 31.7 L, RDW 17.8 H, RDW Differential 61.4 H, Plt Count 98 L, MPV 9.8 11/25/17 05:30: Sodium 150 H, Potassium 5.5 H, Chloride 125 H, Carbon Dioxide 16.0 L, Anion Gap 9, BUN 61 H, Creatinine 1.86 H, Estim Creat Clear Calc 29.61, Est GFR (MDRD) Af Amer 35 L, Est GFR (MDRD) Non-Af 29 L, BUN/Creatinine Ratio 32.8 H, Glucose 211 H, Calcium 7.1 L 11/25/17 06:48: POC Glucose 233 H 11/25/17 11:38: POC Glucose 273 H Current Medications Acetaminophen (Tylenol) 650 mg PO Q6H PRN PRN PRN Reason: Mild Pain (1-3)/Temp > 100.7 F Last Admin: 11/25/17 04:01 Dose: 650 mg Aspirin (Aspirin, Baby) 81 mg PO DAILY@0800 [facility] Last Admin: 11/25/17 08:09 Dose: 81 mg Clopidogrel Bisulfate (Plavix) 75 mg PO DAILY [facility] Last Admin: 11/25/17 08:11 Dose: 75 mg Dextrose (D50w Syringe) 0 gm IV X1 PRN; Protocol PRN Reason: Hypoglycemia Ferrous Gluconate (Ferrous Gluconate) 325 mg PO DAILY@0800 [facility] Last Admin: 11/25/17 08:10 Dose: 325 mg Glucagon () 1 mg IM .X1 PRN PRN Reason: Hypoglycemia Heparin Sodium (Porcine) (Heparin Na) 5,000 unit SC Q8 [facility] Last Admin: 11/25/17 06:50 Dose: 5,000 units Sodium Chloride () 1,000 mls @ 75 mls/hr IV .[id number] [facility] Last Admin: 11/25/17 03:55 Dose: 75 mls/hr Cefepime HCl 1 gm/ Sodium (Chloride) 50 mls @ 100 mls/hr IV Q24 [facility] Insulin Aspart (Novolog Flexpen (Bkc)) 0 units SC ACHS [facility] PRN Reason: Protocol Last Admin: 11/25/17 11:39 Dose: 9 u Insulin Detemir (Levemir (Bkc)) 20 units SC BID [facility] Last Admin: 11/25/17 08:11 Dose: 20 u Isosorbide Mononitrate (Imdur) 60 mg PO DAILY [facility] Last Admin: 11/25/17 08:10 Dose: 60 mg Magnesium Hydroxide (Milk Of Magnesia) 30 ml PO DAILY PRN PRN Reason: Constipation Metoprolol Tartrate (Lopressor (Beta Richard)) 100 mg PO BID [facility] Last Admin: 11/25/17 08:10 Dose: 100 mg Nutritional Formula (Lactose Free) (Glucerna Shake) 120 ml PO TIDCM [facility] Last Admin: 11/25/17 11:42 Dose: Not Given Pantoprazole Sodium (Protonix) 40 mg PO BID [facility] Last Admin: 11/25/17 08:11 Dose: 40 mg Sodium Chloride () 5 - 30 ml IV UD PRN PRN Reason: SALINE FLUSH Medical Necessity - Tobacco Use Smoking Status: Former smoker Tobacco Use: Non-smoker Assessment/Plan All Active Problems Malaise (Acute) Fever (Acute) Maceration of skin (Acute) Acquired deformity of toe of both feet (Acute) Non-pressure chronic ulcer of other part of right lower leg limited to breakdown of skin (Acute) Non-pressure chronic ulcer of other part of left lower leg limited to breakdown of skin (Resolved) Non-pressure chronic ulcer of other part of right foot limited to breakdown of skin (Acute) Non-pressure chronic ulcer of other part of left foot limited to breakdown of skin (Acute) Type 2 diabetes mellitus with diabetic peripheral angiopathy without gangrene ( Acute) Lymphedema in adult patient (Acute) Acute on chronic diastolic heart failure (Acute) Acute CHF (congestive heart failure) (Acute) Acute respiratory failure with hypoxia (Acute) KIM (acute kidney injury) (Ruled-out) Bilateral lower leg cellulitis (Resolved) Diarrhea (Resolved) Cellulitis of right lower extremity (Ruled-out) BRBPR (bright red blood per rectum) (Resolved) C. difficile colitis (Resolved) Hyperkalemia (Resolved) 1. Acute kidney injury * Creatinine down to 1.86 from 2.37, baseline creatinine appears to be around 1.6 * Continue with IV fluids 2. Hyperkalemia * No evidence of hemolysis * Did receive total of 45 g of Kayexalate * Recheck 3. Bilateral lower extremity cellulitis * Polymicrobial * On cefepime * Infectious disease following 4. IVs mellitus type II * Poor control * Continue with Levemir and sliding scale NovoLog for now and adjust accordingly. 5. DVT prophylaxis with subcu heparin Code Visit Procedures: Other Procedure - See Report - non-billable rounding.
[2017-11-25 14:34] LABS: Anion Gap 7 (5-15); BUN 58 mg/dL (7-18); BUN/Creat Ratio 30.5 RATIO (10-20); Chloride 120 mmol/L (98-107); EST Glomerular Filtration Rate 28 mL/min (>60); Est Glom Filt Rate - Afr Amer 34 mL/min (>60); Estimated Creatinine Clearance 28.98 ml/min; Glucose 234 mg/dL (74-106); Potassium 5.6 mmol/L (3.5-5.1); Sodium Level 146 mmol/L (136-145)
[2017-11-25 16:00] LABS: Bedside Glucose 274 mg/dL (70-110)
[2017-11-25 23:06] LABS: Bedside Glucose 293 mg/dL (70-110)
[2017-11-26] VITALS (12 sets, daily range): BP systolic 143–152; BP diastolic 62–64; PULSE 72–86; RESP 18; TEMP 36.6–38.1; O2SAT 92–95
[2017-11-26] MEDS: 0.9% Normal Saline 1,000 ML 75 ML IV ×2 (05:59→19:50)
[2017-11-26 06:34] LABS: Anion Gap 8 (5-15); BUN 44 mg/dL (7-18); Calcium,Total 7.9 mg/dL (8.5-10.1); Chloride 122 mmol/L (98-107); Creatinine, Serum 1.42 mg/dL (0.55-1.02); EST Glomerular Filtration Rate 39 mL/min (>60); Est Glom Filt Rate - Afr Amer 47 mL/min (>60); Estimated Creatinine Clearance 38.78 ml/min; Glucose 179 mg/dL (74-106); Potassium 5.5 mmol/L (3.5-5.1); Sodium Level 147 mmol/L (136-145)
[2017-11-26 06:36] LABS: Absolute Lymphocyte Count 0.44 X10^3/ul (0.83-4.51); Absolute Neutrophil Count 6.3 X10^3/uL (2.0-7.7); Basophil# 0.01 X10^3/uL; Basophil% 0.1 % (0-1); Eosinophil# 0.17 X10^3/uL; Eosinophils% 2.3 % (0-5); Hematocrit 28.7 % (37-47); Hemoglobin 8.8 g/dl (12.0-15.0); Lymphocyte # 0.44 X10^3/ul (4.0); Lymphocyte % 6.1 % (19-41); Mean Corp Hgb Conc 30.7 g/gl (32-36); Mean Corpuscular Hgb 29.2 pg (27.0-32.0); Mean Corpuscular Volume 95.3 fL (81-99); Mean Platelet Vol. 9.7 fl (6.2-12.0); Monocyte# 0.33 X10^3/uL; Monocyte% 4.6 % (0-10); Neutrophil # 6.26 X10^3/uL (2.7-7.7); Neutrophil % 86.5 % (47-70); Platelet Count 109 K/mm3 (150-450); RBC Distribution Width CV 17.8 % (11.6-14.6); RBC Distribution Width SD 59.8 fl (35.1-43.9); Red Blood Count 3.01 M/mm3 (4.2-5.4); White Blood Count 7.2 K/mm3 (4.4-11.0)
[2017-11-26 06:37] LABS: Differential Indicated SCAN CRITERIA MET; POSITIVE COUNT NO; POSITIVE DIFFERENTIAL YES; POSITIVE MORPHOLOGY NO
[2017-11-26 06:51] LABS: Bedside Glucose 185 mg/dL (70-110)
[2017-11-26 07:00] LABS: Differential Comment SCANNED
[2017-11-26] MEDS: Isosorbide Mononitrate 60 MG Tablet PO (10:04)
[2017-11-26] MEDS: Ferrous Gluconate 325 MG Tablet PO (10:04)
[2017-11-26] MEDS: Pantoprazole Sodium 40 MG Tablet PO ×2 (10:05→22:26)
[2017-11-26] MEDS: Clopidogrel Bisulfate 75 MG Tablet PO (10:05)
[2017-11-26] MEDS: Metoprolol Tartrate 100 MG Tablet PO ×2 (10:05→22:26)
[2017-11-26] MEDS: Aspirin 81 MG TAB.CHEW PO (10:05)
--- NOTE | 2017-11-26 11:12 | PN.ID_ITS ---
Patient Problems: Active and Suspected Problems Malaise (Acute) Fever (Acute) Subjective: Feeling better, no further diarrhea. No fever, legs feeling better. - Physical Exam General: Alert, Cooperative Lungs: Clear to auscultation, Normal air movement Cardiovascular: Regular rate, Regular Rhythm Abdomen: Soft, Non Tender, Non-Distended Skin: Ulcer/ Wound - BLE wrapped Vital Signs Temp Pulse Resp BP Pulse Ox 98.9 F 86 18 148/62 H 93 11/26/17 09:45 11/26/17 10:05 11/26/17 09:45 11/26/17 09:45 11/26/17 09:45 Oxygen Flow Rate (L/min) 2 Oxygen Delivery Method Venturi Mask Weight: 97.2 kg Body Mass Index (BMI) 32.5 Intake and Output for Last 24 Hours 11/24/17 11/25/17 11/26/17 23:59 23:59 23:59 Intake Total 2688 / 2688 367 / 367 Balance 2688 / 2688 367 / 367 Laboratory Tests Past 24 Hrs 11/25/17 11/26/17 11/26/17 14:03 05:55 05:55 WBC 7.2 RBC 3.01 L Hgb 8.8 L Hct 28.7 L MCV 95.3 MCH 29.2 MCHC 30.7 L RDW 17.8 H RDW Differential 59.8 H Plt Count 109 L MPV 9.7 Immature Gran % (Auto) 0.400 Neut % (Auto) 86.5 H Lymph % (Auto) 6.1 L [place] % (Auto) 4.6 Eos % (Auto) 2.3 Baso % (Auto) 0.1 Absolute Neuts (auto) 6.3 Absolute Lymphs (auto) 0.44 L Total Counted Not Reportable Differential Comment SCANNED Sodium 146 H 147 H Potassium 5.6 H 5.5 H Chloride 120 H 122 H Carbon Dioxide 19.0 L 17.0 L Anion Gap 7 8 BUN 58 H 44 H Creatinine 1.90 H 1.42 H Estim Creat Clear Calc 28.98 38.78 Est GFR (MDRD) Af Amer 34 L 47 L Est GFR (MDRD) Non-Af 28 L 39 L BUN/Creatinine Ratio 30.5 H 31.0 H Glucose 234 H 179 H Calcium 8.0 L 7.9 L POC Glucose 11/26/17 11/25/17 11/25/17 06:45 22:46 15:53 POC Glucose 185 H 293 H 274 H 11/25/17 11:38 POC Glucose 273 H Medical Necessity - Tobacco Use Smoking Status: Former smoker Tobacco Use: Non-smoker Route of nutrition/ use of supplements: [] Nutritional Intake: [] IV Site: [] Blanc Catheter: [] - Assessment/Plan Antibiotics: [] Assessment/Plan: [] Active and Suspected Problems Malaise (Acute) Fever (Acute) BLE cellulitis - recent wound cx with proteus, CoNS, PsA, burkholderia. Diffuse redness, not much drainage. No fever, normal wbc. Change cefepime to po levaquin, plan on 10 day course. diarrhea - reports h/o cdiff. No further episodes of diarrhea. Had been having some at home, but likely worsened as inpatient due to kayexalate. Ok to d/c isolation and monitor. Will cancel cdiff order. KIM on CKD - improving. will follow
[2017-11-26] MEDS: levoFLOXacin 500 MG Tablet PO (12:01)
[2017-11-26] MEDS: Sodium Polystyrene Sulfonate 15 GM/60 ML UDC PO (12:02)
[2017-11-26 12:20] LABS: Bedside Glucose 222 mg/dL (70-110)
[2017-11-26] MEDS: Heparin Injection (Vial) 5,000 UNIT/ML VIAL 5000 UNIT SC ×2 (13:07→22:24)
[2017-11-26 14:54] LABS: Anion Gap 9 (5-15); BUN 39 mg/dL (7-18); BUN/Creat Ratio 29.5 RATIO (10-20); Calcium,Total 8.1 mg/dL (8.5-10.1); Chloride 119 mmol/L (98-107); Creatinine, Serum 1.32 mg/dL (0.55-1.02); EST Glomerular Filtration Rate 43 mL/min (>60); Est Glom Filt Rate - Afr Amer 52 mL/min (>60); Estimated Creatinine Clearance 41.72 ml/min; Glucose 209 mg/dL (74-106); Potassium 5.3 mmol/L (3.5-5.1); Sodium Level 149 mmol/L (136-145)
[2017-11-26] MEDS: 0.9% NaCl Peripheral Flush Adult/Peds IV (15:07)
--- NOTE | 2017-11-26 15:36 | PCM.PN.HOSP ---
Patient Problems: Active and Suspected Problems Malaise (Acute) Fever (Acute) Subjective: No new complaints. Vitals/I&O's: Vital Signs Temp Pulse Resp BP Pulse Ox 36.6 C 79 18 143/63 H 95 11/26/17 15:01 11/26/17 15:13 11/26/17 15:01 11/26/17 15:01 11/26/17 15:01 Oxygen Flow Rate (L/min) 8 Oxygen Delivery Method Venturi Mask Weight: 97.2 kg Body Mass Index (BMI) 32.5 Intake and Output for Last 24 Hours 11/24/17 11/25/17 11/26/17 23:59 23:59 23:59 Intake Total 2688 / 2688 1177 / 1177 Output Total 50 / 50 Balance 2688 / 2688 1127 / 1127 General: Alert, Cooperative, No apparent distress HEENT: Atraumatic, Normocephalic Neck: No Nodes, Thyroid Normal Size and Texture Lungs: Clear to auscultation, Normal air movement, No rhonchi, No wheeze Cardiovascular: Regular rate, Regular Rhythm, Normal S1, Normal S2, No murmurs Abdomen: Bowel Sounds Present, Soft, Non Tender, Non-Distended, No Hepato-splenomegaly Extremities: No edema, No Calf Tenderness Psych/Mental Status: Normal Affect, Appropriate Laboratory Results 11/25/17 15:53: POC Glucose 274 H 11/25/17 22:46: POC Glucose 293 H 11/26/17 05:55: WBC 7.2, RBC 3.01 L, Hgb 8.8 L, Hct 28.7 L, MCV 95.3, MCH 29.2, MCHC 30.7 L, RDW 17.8 H, RDW Differential 59.8 H, Plt Count 109 L, MPV 9.7, Immature Gran % (Auto) 0.400, Neut % (Auto) 86.5 H, Lymph % (Auto) 6.1 L, [place] % (Auto) 4.6, Eos % (Auto) 2.3, Baso % (Auto) 0.1, Absolute Neuts (auto) 6.3, Absolute Lymphs (auto) 0.44 L, Total Counted Not Reportable, Differential Comment SCANNED 11/26/17 05:55: Sodium 147 H, Potassium 5.5 H, Chloride 122 H, Carbon Dioxide 17.0 L, Anion Gap 8, BUN 44 H, Creatinine 1.42 H, Estim Creat Clear Calc 38.78, Est GFR (MDRD) Af Amer 47 L, Est GFR (MDRD) Non-Af 39 L, BUN/Creatinine Ratio 31.0 H, Glucose 179 H, Calcium 7.9 L 11/26/17 06:45: POC Glucose 185 H 11/26/17 12:11: POC Glucose 222 H 11/26/17 14:23: Sodium 149 H, Potassium 5.3 H, Chloride 119 H, Carbon Dioxide 21.0, Anion Gap 9, BUN 39 H, Creatinine 1.32 H, Estim Creat Clear Calc 41.72, Est GFR (MDRD) Af Amer 52 L, Est GFR (MDRD) Non-Af 43 L, BUN/Creatinine Ratio 29.5 H, Glucose 209 H, Calcium 8.1 L Current Medications Acetaminophen (Tylenol) 650 mg PO Q6H PRN PRN PRN Reason: Mild Pain (1-3)/Temp > 100.7 F Last Admin: 11/25/17 04:01 Dose: 650 mg Aspirin (Aspirin, Baby) 81 mg PO DAILY@0800 [facility] Last Admin: 11/26/17 10:05 Dose: 81 mg Clopidogrel Bisulfate (Plavix) 75 mg PO DAILY [facility] Last Admin: 11/26/17 10:05 Dose: 75 mg Dextrose (D50w Syringe) 0 gm IV X1 PRN; Protocol PRN Reason: Hypoglycemia Ferrous Gluconate (Ferrous Gluconate) 325 mg PO DAILY@0800 [facility] Last Admin: 11/26/17 10:04 Dose: 325 mg Glucagon () 1 mg IM .X1 PRN PRN Reason: Hypoglycemia Heparin Sodium (Porcine) (Heparin Na) 5,000 unit SC Q8 [facility] Last Admin: 11/26/17 13:07 Dose: 5,000 units Sodium Chloride () 1,000 mls @ 75 mls/hr IV .[id number] [facility] Last Admin: 11/26/17 05:59 Dose: 75 mls/hr Insulin Aspart (Novolog Flexpen (Bkc)) 0 units SC ACHS [facility] PRN Reason: Protocol Last Admin: 11/26/17 13:08 Dose: 6 u Insulin Detemir (Levemir (Bkc)) 20 units SC BID [facility] Last Admin: 11/26/17 10:09 Dose: 20 u Isosorbide Mononitrate (Imdur) 60 mg PO DAILY [facility] Last Admin: 11/26/17 10:04 Dose: 60 mg Levofloxacin (Levaquin Tablet) 500 mg PO DAILY@0600 [facility] Last Admin: 11/26/17 12:01 Dose: 500 mg Magnesium Hydroxide (Milk Of Magnesia) 30 ml PO DAILY PRN PRN Reason: Constipation Metoprolol Tartrate (Lopressor (Beta Richard)) 100 mg PO BID [facility] Last Admin: 11/26/17 10:05 Dose: 100 mg Pantoprazole Sodium (Protonix) 40 mg PO BID [facility] Last Admin: 11/26/17 10:05 Dose: 40 mg Sodium Chloride () 5 - 30 ml IV UD PRN PRN Reason: SALINE FLUSH Last Admin: 11/26/17 15:07 Dose: 10 ml Medical Necessity - Tobacco Use Smoking Status: Former smoker Tobacco Use: Non-smoker Assessment/Plan All Active Problems Malaise (Acute) Fever (Acute) Maceration of skin (Acute) Acquired deformity of toe of both feet (Acute) Non-pressure chronic ulcer of other part of right lower leg limited to breakdown of skin (Acute) Non-pressure chronic ulcer of other part of left lower leg limited to breakdown of skin (Resolved) Non-pressure chronic ulcer of other part of right foot limited to breakdown of skin (Acute) Non-pressure chronic ulcer of other part of left foot limited to breakdown of skin (Acute) Type 2 diabetes mellitus with diabetic peripheral angiopathy without gangrene (Acute) Lymphedema in adult patient (Acute) Acute on chronic diastolic heart failure (Acute) Acute CHF (congestive heart failure) (Acute) Acute respiratory failure with hypoxia (Acute) KIM (acute kidney injury) (Ruled-out) Bilateral lower leg cellulitis (Resolved) Diarrhea (Resolved) Cellulitis of right lower extremity (Ruled-out) BRBPR (bright red blood per rectum) (Resolved) C. difficile colitis (Resolved) Hyperkalemia (Resolved) 1. Acute kidney injury Creatinine down to 1.32 from 2.37, baseline creatinine appears to be around 1.6 Continue with IV fluids 2. Hyperkalemia still elevated gave an additional dose of Kayexalate and K now down to 5.3 3. Bilateral lower extremity cellulitis Polymicrobial changed to Levaquin by ID for total of 10 days 4. Diabetes mellitus type II Poor control Continue with Levemir and sliding scale NovoLog for now and adjust accordingly. 5. DVT prophylaxis with subcu heparin 6. Disposition: plan is for home with [facility] once medically stable. Hopefully, ready for discharge on 11/27 Code Visit Inpatient E&M: [id number] Subs Hosp L2
--- NOTE | 2017-11-26 15:40 | PN_ITS ---
Patient Problems: Active and Suspected Problems Malaise (Acute) Fever (Acute) Subjective: No new complaints. Vitals/I&O's: Vital Signs Temp Pulse Resp BP Pulse Ox 36.6 C 79 18 143/63 H 95 11/26/17 15:01 11/26/17 15:13 11/26/17 15:01 11/26/17 15:01 11/26/17 15:01 Oxygen Flow Rate (L/min) 8 Oxygen Delivery Method Venturi Mask Weight: 97.2 kg Body Mass Index (BMI) 32.5 Intake and Output for Last 24 Hours 11/24/17 11/25/17 11/26/17 23:59 23:59 23:59 Intake Total 2688 / 2688 1177 / 1177 Output Total 50 / 50 Balance 2688 / 2688 1127 / 1127 General: Alert, Cooperative, No apparent distress HEENT: Atraumatic, Normocephalic Neck: No Nodes, Thyroid Normal Size and Texture Lungs: Clear to auscultation, Normal air movement, No rhonchi, No wheeze Cardiovascular: Regular rate, Regular Rhythm, Normal S1, Normal S2, No murmurs Abdomen: Bowel Sounds Present, Soft, Non Tender, Non-Distended, No Hepato- splenomegaly Extremities: No edema, No Calf Tenderness Psych/Mental Status: Normal Affect, Appropriate Laboratory Results 11/25/17 15:53: POC Glucose 274 H 11/25/17 22:46: POC Glucose 293 H 11/26/17 05:55: WBC 7.2, RBC 3.01 L, Hgb 8.8 L, Hct 28.7 L, MCV 95.3, MCH 29.2, MCHC 30.7 L, RDW 17.8 H, RDW Differential 59.8 H, Plt Count 109 L, MPV 9.7, Immature Gran % (Auto) 0.400, Neut % (Auto) 86.5 H, Lymph % (Auto) 6.1 L, [place] % (Auto) 4.6, Eos % (Auto) 2.3, Baso % (Auto) 0.1, Absolute Neuts (auto) 6.3, Absolute Lymphs (auto) 0.44 L, Total Counted Not Reportable, Differential Comment SCANNED 11/26/17 05:55: Sodium 147 H, Potassium 5.5 H, Chloride 122 H, Carbon Dioxide 17.0 L, Anion Gap 8, BUN 44 H, Creatinine 1.42 H, Estim Creat Clear Calc 38.78, Est GFR (MDRD) Af Amer 47 L, Est GFR (MDRD) Non-Af 39 L, BUN/Creatinine Ratio 31.0 H, Glucose 179 H, Calcium 7.9 L 11/26/17 06:45: POC Glucose 185 H 11/26/17 12:11: POC Glucose 222 H 11/26/17 14:23: Sodium 149 H, Potassium 5.3 H, Chloride 119 H, Carbon Dioxide 21.0, Anion Gap 9, BUN 39 H, Creatinine 1.32 H, Estim Creat Clear Calc 41.72, Est GFR (MDRD) Af Amer 52 L, Est GFR (MDRD) Non-Af 43 L, BUN/Creatinine Ratio 29.5 H, Glucose 209 H, Calcium 8.1 L Current Medications Acetaminophen (Tylenol) 650 mg PO Q6H PRN PRN PRN Reason: Mild Pain (1-3)/Temp > 100.7 F Last Admin: 11/25/17 04:01 Dose: 650 mg Aspirin (Aspirin, Baby) 81 mg PO DAILY@0800 [facility] Last Admin: 11/26/17 10:05 Dose: 81 mg Clopidogrel Bisulfate (Plavix) 75 mg PO DAILY [facility] Last Admin: 11/26/17 10:05 Dose: 75 mg Dextrose (D50w Syringe) 0 gm IV X1 PRN; Protocol PRN Reason: Hypoglycemia Ferrous Gluconate (Ferrous Gluconate) 325 mg PO DAILY@0800 [facility] Last Admin: 11/26/17 10:04 Dose: 325 mg Glucagon () 1 mg IM .X1 PRN PRN Reason: Hypoglycemia Heparin Sodium (Porcine) (Heparin Na) 5,000 unit SC Q8 [facility] Last Admin: 11/26/17 13:07 Dose: 5,000 units Sodium Chloride () 1,000 mls @ 75 mls/hr IV .[id number] [facility] Last Admin: 11/26/17 05:59 Dose: 75 mls/hr Insulin Aspart (Novolog Flexpen (Bkc)) 0 units SC ACHS [facility] PRN Reason: Protocol Last Admin: 11/26/17 13:08 Dose: 6 u Insulin Detemir (Levemir (Bkc)) 20 units SC BID [facility] Last Admin: 11/26/17 10:09 Dose: 20 u Isosorbide Mononitrate (Imdur) 60 mg PO DAILY [facility] Last Admin: 11/26/17 10:04 Dose: 60 mg Levofloxacin (Levaquin Tablet) 500 mg PO DAILY@0600 [facility] Last Admin: 11/26/17 12:01 Dose: 500 mg Magnesium Hydroxide (Milk Of Magnesia) 30 ml PO DAILY PRN PRN Reason: Constipation Metoprolol Tartrate (Lopressor (Beta Richard)) 100 mg PO BID [facility] Last Admin: 11/26/17 10:05 Dose: 100 mg Pantoprazole Sodium (Protonix) 40 mg PO BID [facility] Last Admin: 11/26/17 10:05 Dose: 40 mg Sodium Chloride () 5 - 30 ml IV UD PRN PRN Reason: SALINE FLUSH Last Admin: 11/26/17 15:07 Dose: 10 ml Medical Necessity - Tobacco Use Smoking Status: Former smoker Tobacco Use: Non-smoker Assessment/Plan All Active Problems Malaise (Acute) Fever (Acute) Maceration of skin (Acute) Acquired deformity of toe of both feet (Acute) Non-pressure chronic ulcer of other part of right lower leg limited to breakdown of skin (Acute) Non-pressure chronic ulcer of other part of left lower leg limited to breakdown of skin (Resolved) Non-pressure chronic ulcer of other part of right foot limited to breakdown of skin (Acute) Non-pressure chronic ulcer of other part of left foot limited to breakdown of skin (Acute) Type 2 diabetes mellitus with diabetic peripheral angiopathy without gangrene ( Acute) Lymphedema in adult patient (Acute) Acute on chronic diastolic heart failure (Acute) Acute CHF (congestive heart failure) (Acute) Acute respiratory failure with hypoxia (Acute) KIM (acute kidney injury) (Ruled-out) Bilateral lower leg cellulitis (Resolved) Diarrhea (Resolved) Cellulitis of right lower extremity (Ruled-out) BRBPR (bright red blood per rectum) (Resolved) C. difficile colitis (Resolved) Hyperkalemia (Resolved) 1. Acute kidney injury * Creatinine down to 1.32 from 2.37, baseline creatinine appears to be around 1.6 * Continue with IV fluids 2. Hyperkalemia * still elevated * gave an additional dose of Kayexalate and K now down to 5.3 3. Bilateral lower extremity cellulitis * Polymicrobial * changed to Levaquin by ID for total of 10 days 4. Diabetes mellitus type II * Poor control * Continue with Levemir and sliding scale NovoLog for now and adjust accordingly. 5. DVT prophylaxis with subcu heparin 6. Disposition: plan is for home with [facility] once medically stable. Hopefully, ready for discharge on 11/27 Code Visit Inpatient E&M: [id number] Subs Hosp L2
[2017-11-26] MEDS: Ondansetron 8 MG Tablet PO (18:26)
[2017-11-26 18:36] LABS: Bedside Glucose 271 mg/dL (70-110)
[2017-11-26] MEDS: Acetaminophen 325 MG Tablet 650 MG PO (22:24)
[2017-11-27] VITALS (7 sets, daily range): BP systolic 137–145; BP diastolic 49–62; PULSE 69–77; RESP 18–20; TEMP 37.3–37.6; O2SAT 93–95
[2017-11-27 00:20] LABS: Bedside Glucose 214 mg/dL (70-110)
[2017-11-27 06:55] LABS: Bedside Glucose 91 mg/dL (70-110)
[2017-11-27] MEDS: levoFLOXacin 500 MG Tablet PO (06:58)
[2017-11-27] MEDS: Heparin Injection (Vial) 5,000 UNIT/ML VIAL 5000 UNIT SC ×2 (06:58→12:47)
[2017-11-27 07:26] LABS: Anion Gap 9 (5-15); BUN 33 mg/dL (7-18); Chloride 120 mmol/L (98-107); Creatinine, Serum 1.18 mg/dL (0.55-1.02); EST Glomerular Filtration Rate 49 mL/min (>60); Est Glom Filt Rate - Afr Amer 59 mL/min (>60); Estimated Creatinine Clearance 46.67 ml/min; Glucose 88 mg/dL (74-106); Sodium Level 149 mmol/L (136-145)
[2017-11-27] MEDS: 0.9% Normal Saline 1,000 ML 75 ML IV (09:05)
[2017-11-27] MEDS: Aspirin 81 MG TAB.CHEW PO (09:05)
[2017-11-27] MEDS: Ferrous Gluconate 325 MG Tablet PO (09:06)
[2017-11-27] MEDS: Isosorbide Mononitrate 60 MG Tablet PO (09:06)
[2017-11-27] MEDS: Pantoprazole Sodium 40 MG Tablet PO (09:07)
[2017-11-27] MEDS: Metoprolol Tartrate 100 MG Tablet PO (09:07)
[2017-11-27] MEDS: Clopidogrel Bisulfate 75 MG Tablet PO (09:07)
--- NOTE | 2017-11-27 09:55 | EKG12_ITS ---
Test Reason : Blood Pressure : / mmHG Vent. Rate : 077 BPM Atrial Rate : 077 BPM P-R Int : 116 ms QRS Dur : 070 ms QT Int : 356 ms P-R-T Axes : 040 012 060 degrees QTc Int : 402 ms Sinus rhythm with frequent Premature ventricular complexes Nonspecific ST and T wave abnormality Abnormal ECG Confirmed by VIOLETTE CHANCE, VIKTOR ([id number]), publications editor PROMISE DICKINSON ([id number]) on 12/11/2017 1:09:54 PM Referred By: ABEL Confirmed By:VIKTOR OAKES MD
[2017-11-27 11:06] LABS: Bedside Glucose 203 mg/dL (70-110)
--- NOTE | 2017-11-27 11:52 | PCM.PN.ID ---
Patient Problems: Active and Suspected Problems Malaise (Acute) Fever (Acute) Subjective: Feeling better, legs less sore, mild nausea last night, no fever. - Physical Exam General: Alert, Cooperative Lungs: Clear to auscultation, Normal air movement Cardiovascular: Regular rate, Regular Rhythm Abdomen: Soft, Non Tender, Non-Distended Skin: Ulcer/ Wound - BLE wrapped, less red Vital Signs Temp Pulse Resp BP Pulse Ox 99.2 F H 75 20 H 140/54 H 95 11/27/17 09:20 11/27/17 09:20 11/27/17 09:20 11/27/17 09:20 11/27/17 09:20 Oxygen Flow Rate (L/min) 2 Oxygen Delivery Method Nasal Cannula Weight: 97.2 kg Body Mass Index (BMI) 32.5 Intake and Output for Last 24 Hours 11/25/17 11/26/17 11/27/17 23:59 23:59 23:59 Intake Total 2688 / 2688 2646 / 2646 515 / 515 Output Total 350 / 350 Balance 2688 / 2688 2296 / 2296 515 / 515 Laboratory Tests Past 24 Hrs 11/26/17 11/27/17 11/27/17 14:23 06:15 10:46 Sodium 149 H 149 H Potassium 5.3 H 5.0 Chloride 119 H 120 H Carbon Dioxide 21.0 20.0 L Anion Gap 9 9 BUN 39 H 33 H Creatinine 1.32 H 1.18 H Estim Creat Clear Calc 41.72 46.67 Est GFR (MDRD) Af Amer 52 L 59 L Est GFR (MDRD) Non-Af 43 L 49 L BUN/Creatinine Ratio 29.5 H 28.0 H Glucose 209 H 88 Calcium 8.1 L 8.0 L Troponin I < 0.015 POC Glucose 11/27/17 11/27/17 11/26/17 11:03 06:42 22:23 POC Glucose 203 H 91 214 H 11/26/17 11/26/17 17:13 12:11 POC Glucose 271 H 222 H Medical Necessity - Tobacco Use Smoking Status: Former smoker Tobacco Use: Non-smoker Route of nutrition/ use of supplements: [] Nutritional Intake: [] IV Site: [] Blanc Catheter: [] - Assessment/Plan Antibiotics: [] Assessment/Plan: [] Active and Suspected Problems Malaise (Acute) Fever (Acute) BLE cellulitis - recent wound cx with proteus, CoNS, PsA, burkholderia. Diffuse redness, not much drainage. No fever, normal wbc. Changed cefepime to po levaquin, plan on 10 day course. Legs improving. diarrhea - reports h/o cdiff. No further episodes of diarrhea. Had been having some at home, but likely worsened as inpatient due to kayexalate. KIM on CKD - improving. will follow
--- NOTE | 2017-11-27 13:55 | PCM.PN.HOSP ---
Patient Problems: Active and Suspected Problems Malaise (Acute) Fever (Acute) Subjective: Had some chest pain today. Chest pain up into shoulders. Vitals/I&O's: Vital Signs Temp Pulse Resp BP Pulse Ox 37.3 C H 73 20 H 140/54 H 95 11/27/17 09:20 11/27/17 12:00 11/27/17 09:20 11/27/17 09:20 11/27/17 09:20 Oxygen Flow Rate (L/min) 2 Oxygen Delivery Method Nasal Cannula Weight: 97.2 kg Body Mass Index (BMI) 32.5 Intake and Output for Last 24 Hours 11/25/17 11/26/17 11/27/17 23:59 23:59 23:59 Intake Total 2688 / 2688 2646 / 2646 1015 / 1015 Output Total 350 / 350 300 / 300 Balance 2688 / 2688 2296 / 2296 715 / 715 General: Alert, Cooperative, No apparent distress HEENT: Atraumatic, Normocephalic Neck: Thyroid Normal Size and Texture Lungs: Clear to auscultation, Normal air movement, No rhonchi, No wheeze Cardiovascular: Regular rate, Regular Rhythm, Normal S1, Normal S2 Abdomen: Bowel Sounds Present, Soft, Non Tender, Non-Distended Laboratory Results 11/26/17 14:23: Sodium 149 H, Potassium 5.3 H, Chloride 119 H, Carbon Dioxide 21.0, Anion Gap 9, BUN 39 H, Creatinine 1.32 H, Estim Creat Clear Calc 41.72, Est GFR (MDRD) Af Amer 52 L, Est GFR (MDRD) Non-Af 43 L, BUN/Creatinine Ratio 29.5 H, Glucose 209 H, Calcium 8.1 L 11/26/17 17:13: POC Glucose 271 H 11/26/17 22:23: POC Glucose 214 H 11/27/17 06:15: Sodium 149 H, Potassium 5.0, Chloride 120 H, Carbon Dioxide 20.0 L, Anion Gap 9, BUN 33 H, Creatinine 1.18 H, Estim Creat Clear Calc 46.67, Est GFR (MDRD) Af Amer 59 L, Est GFR (MDRD) Non-Af 49 L, BUN/Creatinine Ratio 28.0 H, Glucose 88, Calcium 8.0 L 11/27/17 06:42: POC Glucose 91 11/27/17 10:46: Troponin I < 0.015 11/27/17 11:03: POC Glucose 203 H 11/27/17 13:26: Troponin I Pending Current Medications Acetaminophen (Tylenol) 650 mg PO Q6H PRN PRN PRN Reason: Mild Pain (1-3)/Temp > 100.7 F Last Admin: 11/26/17 22:24 Dose: 650 mg Aspirin (Aspirin, Baby) 81 mg PO DAILY@0800 [facility] Last Admin: 11/27/17 09:05 Dose: 81 mg Clopidogrel Bisulfate (Plavix) 75 mg PO DAILY [facility] Last Admin: 11/27/17 09:07 Dose: 75 mg Dextrose (D50w Syringe) 0 gm IV X1 PRN; Protocol PRN Reason: Hypoglycemia Ferrous Gluconate (Ferrous Gluconate) 325 mg PO DAILY@0800 [facility] Last Admin: 11/27/17 09:06 Dose: 325 mg Glucagon () 1 mg IM .X1 PRN PRN Reason: Hypoglycemia Heparin Sodium (Porcine) (Heparin Na) 5,000 unit SC Q8 [facility] Last Admin: 11/27/17 12:47 Dose: 5,000 units Sodium Chloride () 1,000 mls @ 75 mls/hr IV .[id number] [facility] Last Admin: 11/27/17 09:05 Dose: 75 mls/hr Insulin Aspart (Novolog Flexpen (Bkc)) 0 units SC ACHS [facility] PRN Reason: Protocol Last Admin: 11/27/17 12:44 Dose: 3 u Insulin Detemir (Levemir (Bkc)) 20 units SC BID [facility] Last Admin: 11/27/17 09:06 Dose: 20 u Isosorbide Mononitrate (Imdur) 60 mg PO DAILY [facility] Last Admin: 11/27/17 09:06 Dose: 60 mg Levofloxacin (Levaquin Tablet) 500 mg PO DAILY@0600 [facility] Last Admin: 11/27/17 06:58 Dose: 500 mg Magnesium Hydroxide (Milk Of Magnesia) 30 ml PO DAILY PRN PRN Reason: Constipation Metoprolol Tartrate (Lopressor (Beta Richard)) 100 mg PO BID [facility] Last Admin: 11/27/17 09:07 Dose: 100 mg Ondansetron HCl (Zofran) 8 mg PO TID PRN PRN PRN Reason: NAUSEA Last Admin: 11/26/17 18:26 Dose: 8 mg Pantoprazole Sodium (Protonix) 40 mg PO BID DIANELYS Last Admin: 11/27/17 09:07 Dose: 40 mg Sodium Chloride () 5 - 30 ml IV UD PRN PRN Reason: SALINE FLUSH Last Admin: 11/26/17 15:07 Dose: 10 ml Medical Necessity - Tobacco Use Smoking Status: Former smoker Tobacco Use: Non-smoker Assessment/Plan All Active Problems Malaise (Acute) Fever (Acute) Maceration of skin (Acute) Acquired deformity of toe of both feet (Acute) Non-pressure chronic ulcer of other part of right lower leg limited to breakdown of skin (Acute) Non-pressure chronic ulcer of other part of left lower leg limited to breakdown of skin (Resolved) Non-pressure chronic ulcer of other part of right foot limited to breakdown of skin (Acute) Non-pressure chronic ulcer of other part of left foot limited to breakdown of skin (Acute) Type 2 diabetes mellitus with diabetic peripheral angiopathy without gangrene (Acute) Lymphedema in adult patient (Acute) Acute on chronic diastolic heart failure (Acute) Acute CHF (congestive heart failure) (Acute) Acute respiratory failure with hypoxia (Acute) KIM (acute kidney injury) (Ruled-out) Bilateral lower leg cellulitis (Resolved) Diarrhea (Resolved) Cellulitis of right lower extremity (Ruled-out) BRBPR (bright red blood per rectum) (Resolved) C. difficile colitis (Resolved) Hyperkalemia (Resolved) 1. Acute kidney injury Creatinine down to 1.18 from 2.37, baseline creatinine appears to be around 1.6 Outpt follow up 2. Hyperkalemia still elevated gave an additional dose of Kayexalate and K now down to 5.0 follow up outpt 3. Bilateral lower extremity cellulitis Polymicrobial changed to Levaquin by ID for total of 10 days 4. Diabetes mellitus type II Poor control Continue with Levemir and sliding scale NovoLog for now and adjust accordingly. 5. DVT prophylaxis with subcu heparin 6. Disposition: plan is for home with [facility] once medically stable. Hopefully, ready for discharge on 11/27 7. Chest pain: normal C in September 2017. musculoskeletal no further work up.
--- NOTE | 2017-11-27 13:58 | PN_ITS ---
Patient Problems: Active and Suspected Problems Malaise (Acute) Fever (Acute) Subjective: Had some chest pain today. Chest pain up into shoulders. Vitals/I&O's: Vital Signs Temp Pulse Resp BP Pulse Ox 37.3 C H 73 20 H 140/54 H 95 11/27/17 09:20 11/27/17 12:00 11/27/17 09:20 11/27/17 09:20 11/27/17 09:20 Oxygen Flow Rate (L/min) 2 Oxygen Delivery Method Nasal Cannula Weight: 97.2 kg Body Mass Index (BMI) 32.5 Intake and Output for Last 24 Hours 11/25/17 11/26/17 11/27/17 23:59 23:59 23:59 Intake Total 2688 / 2688 2646 / 2646 1015 / 1015 Output Total 350 / 350 300 / 300 Balance 2688 / 2688 2296 / 2296 715 / 715 General: Alert, Cooperative, No apparent distress HEENT: Atraumatic, Normocephalic Neck: Thyroid Normal Size and Texture Lungs: Clear to auscultation, Normal air movement, No rhonchi, No wheeze Cardiovascular: Regular rate, Regular Rhythm, Normal S1, Normal S2 Abdomen: Bowel Sounds Present, Soft, Non Tender, Non-Distended Laboratory Results 11/26/17 14:23: Sodium 149 H, Potassium 5.3 H, Chloride 119 H, Carbon Dioxide 21.0, Anion Gap 9, BUN 39 H, Creatinine 1.32 H, Estim Creat Clear Calc 41.72, Est GFR (MDRD) Af Amer 52 L, Est GFR (MDRD) Non-Af 43 L, BUN/Creatinine Ratio 29.5 H, Glucose 209 H, Calcium 8.1 L 11/26/17 17:13: POC Glucose 271 H 11/26/17 22:23: POC Glucose 214 H 11/27/17 06:15: Sodium 149 H, Potassium 5.0, Chloride 120 H, Carbon Dioxide 20.0 L, Anion Gap 9, BUN 33 H, Creatinine 1.18 H, Estim Creat Clear Calc 46.67, Est GFR (MDRD) Af Amer 59 L, Est GFR (MDRD) Non-Af 49 L, BUN/Creatinine Ratio 28.0 H, Glucose 88, Calcium 8.0 L 11/27/17 06:42: POC Glucose 91 11/27/17 10:46: Troponin I < 0.015 11/27/17 11:03: POC Glucose 203 H 11/27/17 13:26: Troponin I Pending Current Medications Acetaminophen (Tylenol) 650 mg PO Q6H PRN PRN PRN Reason: Mild Pain (1-3)/Temp > 100.7 F Last Admin: 11/26/17 22:24 Dose: 650 mg Aspirin (Aspirin, Baby) 81 mg PO DAILY@0800 [facility] Last Admin: 11/27/17 09:05 Dose: 81 mg Clopidogrel Bisulfate (Plavix) 75 mg PO DAILY [facility] Last Admin: 11/27/17 09:07 Dose: 75 mg Dextrose (D50w Syringe) 0 gm IV X1 PRN; Protocol PRN Reason: Hypoglycemia Ferrous Gluconate (Ferrous Gluconate) 325 mg PO DAILY@0800 [facility] Last Admin: 11/27/17 09:06 Dose: 325 mg Glucagon () 1 mg IM .X1 PRN PRN Reason: Hypoglycemia Heparin Sodium (Porcine) (Heparin Na) 5,000 unit SC Q8 [facility] Last Admin: 11/27/17 12:47 Dose: 5,000 units Sodium Chloride () 1,000 mls @ 75 mls/hr IV .[id number] [facility] Last Admin: 11/27/17 09:05 Dose: 75 mls/hr Insulin Aspart (Novolog Flexpen (Bkc)) 0 units SC ACHS [facility] PRN Reason: Protocol Last Admin: 11/27/17 12:44 Dose: 3 u Insulin Detemir (Levemir (Bkc)) 20 units SC BID [facility] Last Admin: 11/27/17 09:06 Dose: 20 u Isosorbide Mononitrate (Imdur) 60 mg PO DAILY [facility] Last Admin: 11/27/17 09:06 Dose: 60 mg Levofloxacin (Levaquin Tablet) 500 mg PO DAILY@0600 [facility] Last Admin: 11/27/17 06:58 Dose: 500 mg Magnesium Hydroxide (Milk Of Magnesia) 30 ml PO DAILY PRN PRN Reason: Constipation Metoprolol Tartrate (Lopressor (Beta Richard)) 100 mg PO BID [facility] Last Admin: 11/27/17 09:07 Dose: 100 mg Ondansetron HCl (Zofran) 8 mg PO TID PRN PRN PRN Reason: NAUSEA Last Admin: 11/26/17 18:26 Dose: 8 mg Pantoprazole Sodium (Protonix) 40 mg PO BID [facility] Last Admin: 11/27/17 09:07 Dose: 40 mg Sodium Chloride () 5 - 30 ml IV UD PRN PRN Reason: SALINE FLUSH Last Admin: 11/26/17 15:07 Dose: 10 ml Medical Necessity - Tobacco Use Smoking Status: Former smoker Tobacco Use: Non-smoker Assessment/Plan All Active Problems Malaise (Acute) Fever (Acute) Maceration of skin (Acute) Acquired deformity of toe of both feet (Acute) Non-pressure chronic ulcer of other part of right lower leg limited to breakdown of skin (Acute) Non-pressure chronic ulcer of other part of left lower leg limited to breakdown of skin (Resolved) Non-pressure chronic ulcer of other part of right foot limited to breakdown of skin (Acute) Non-pressure chronic ulcer of other part of left foot limited to breakdown of skin (Acute) Type 2 diabetes mellitus with diabetic peripheral angiopathy without gangrene ( Acute) Lymphedema in adult patient (Acute) Acute on chronic diastolic heart failure (Acute) Acute CHF (congestive heart failure) (Acute) Acute respiratory failure with hypoxia (Acute) KIM (acute kidney injury) (Ruled-out) Bilateral lower leg cellulitis (Resolved) Diarrhea (Resolved) Cellulitis of right lower extremity (Ruled-out) BRBPR (bright red blood per rectum) (Resolved) C. difficile colitis (Resolved) Hyperkalemia (Resolved) 1. Acute kidney injury * Creatinine down to 1.18 from 2.37, baseline creatinine appears to be around 1.6 * Outpt follow up 2. Hyperkalemia * still elevated * gave an additional dose of Kayexalate and K now down to 5.0 * follow up outpt 3. Bilateral lower extremity cellulitis * Polymicrobial * changed to Levaquin by ID for total of 10 days 4. Diabetes mellitus type II * Poor control * Continue with Levemir and sliding scale NovoLog for now and adjust accordingly. 5. DVT prophylaxis with subcu heparin 6. Disposition: plan is for home with [facility] once medically stable. Hopefully, ready for discharge on 11/27 7. Chest pain: * normal C in September 2017. * musculoskeletal * no further work up.
--- NOTE | 2017-11-27 14:02 | DCINST_ITS ---
- Discharge Diagnoses Current Active Problems: Current Active and Chronic Problems Malaise (Acute) Fever (Acute) You will use the following diet at home:: Calorie/Carbohydrate Controlled ( specify 1200, 1400, etc) - 1800 kcal/day, Fluid restricted (specify 2000 mls, 1500 mls) - 2000cc/d Call your doctor if you observe: Fever of 101 or Higher, Shortness of breath, Swelling in the ankles Allergies/Adverse Reactions: Allergies Penicillins Allergy (Verified 11/25/17 00:37) Rash rosiglitazone maleate [From Avandia] Allergy (Verified 11/25/17 00:37) Swelling & diarrhea simvastatin [From Zocor] Allergy (Verified 11/25/17 00:37) Muscle weakness atorvastatin calcium [From Lipitor] Adverse Reaction (Verified 11/25/17 00:37) Muscle weakness esomeprazole magnesium [From Nexium] Adverse Reaction (Verified 11/25/17 00:37) Diarrhea lansoprazole [From Prevacid] Adverse Reaction (Verified 11/25/17 00:37) Diarrhea Sulfa (Sulfonamide Antibiotics) Adverse Reaction (Verified 11/25/17 00:37) Nausea/Vom/Diarrhea from PCP office records Medications to take at Discharge Aspirin [Aspirin, Baby] 81 mg PO DAILY@0800 10/20/14 Ferrous Gluconate 325 mg PO DAILY@0800 10/21/14 Metoprolol Tartrate [Lopressor (beta apryl)] 100 mg PO BID 10/21/14 Pantoprazole Sodium [Protonix] 40 mg PO BID 10/21/14 Rosuvastatin Calcium [Crestor] 2.5 mg PO QHS 10/21/14 Nitroglycerin [Nitrostat] 0.4 mg SUBLINGUAL Q5M PRN 11/24/14 Gabapentin [Neurontin] 100 mg PO BID 07/02/15 Ergocalciferol [Vitamin D] 50,000 units PO SA 02/16/16 Niacinamide [Niacin] 500 mg PO BID 02/16/16 Montelukast Sodium [Singulair] 10 mg PO QHS 05/06/16 Ondansetron [Zofran Odt] 8 mg PO Q6H PRN PRN 03/31/17 Insulin Glargine,Hum.rec.anlog [Basaglar Kwikpen U-100] 52 unit SQ QHS 08/20/17 Insulin Aspart [Novolog Flexpen] 20 units SC TIDAC 10/08/17 Amlodipine [Norvasc] 5 mg PO DAILY 10/12/17 Sucralfate [Carafate] 1 gm PO 4X/DAY 10/12/17 Clopidogrel Bisulfate [Plavix] 75 mg PO DAILY #30 tab 10/16/17 Isosorbide Mononitrate [Imdur] 60 mg PO DAILY #30 tab 10/16/17 levoFLOXacin tablet [Levaquin tablet] 500 mg PO DAILY@0600 #8 tab 11/27/17 The following prescriptions were given: levoFLOXacin tablet [Levaquin tablet] 500 mg PO DAILY@0600 #8 tab Primary Care Physician: Kim Field MD [Primary Care Provider] - Within 2 Weeks Proposed Discharge Date: 11/27/17
--- NOTE | 2017-11-27 14:02 | PCM.DC.SUM ---
Discharge Date and Diagnosis - Problem List Patient Problems: Active and Suspected Problems Bilateral lower leg cellulitis (Acute) KIM (acute kidney injury) (Acute) Malaise (Acute) Fever (Acute) Date of Admission: 11/25/17 Date of Discharge: 11/27/17 - Primary Discharge Diagnosis Active and Suspected Problems Bilateral lower leg cellulitis (Acute) KIM (acute kidney injury) (Acute) Malaise (Acute) Fever (Acute) - Secondary Discharge Diagnosis Chronic Problems Venous insufficiency of both lower extremities (Chronic) Other specified peripheral vascular diseases (Chronic) Ulcer of left lower extremity with fat layer exposed (Chronic) Ulcer of right lower extremity with fat layer exposed (Chronic) Delayed wound healing (Chronic) Noncompliance with treatment regimen (Chronic) 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) Aortic stenosis, mild (Chronic) Pulmonary arterial hypertension (Chronic) Pulmonary nodules (Chronic) Cholelithiasis (Chronic) Tricuspid regurgitation (Chronic) History of esophageal reflux (Chronic) History of hyperlipidemia (Chronic) History of hypertension (Chronic) S/P CABG (coronary artery bypass graft) (Chronic) Obesity (BMI 30.0-34.9) (Chronic) Stasis dermatitis of both legs (Chronic) 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 Patient was found to have a bilateral lower extremity cellulitis and was started on cefepime. Additionally, patient was found to be in acute kidney injury with a creatinine 2.37. Addition was found to be hyperkalemic at 6.9. Patient received several rounds of Kayexalate and today her potassium is 5. Patient's creatinine has since normalized to 1.18. Is felt the patient's acute kidney injury was likely prerenal due to possible overdiuresis. Patient's Lasix has been discontinued. Patient was seen in consultation by Dr. Dr. Marquez of infectious disease. Patient was changed over to Levaquin for lower extremity cellulitis and she will continue with that. Patient's hospitalization was also comp gated by chest pain that she experienced today. It sounded more musculoskeletal as involving her both of her shoulders. Patient did have a normal left heart catheterization in September 2017. No additional cardiac workup is necessary. Patient has difficulty caring for herself and came in very disheveled. Patient insists on going home rather than to a senior care facility. Patient will have home care services. [] Discharge Diet: Low fat/ Low Cholesterol, 1800 Calorie Control Diet, 8 Cup Fluid Restriciton, 2000 mg Sodium Diet Discharge Activity: Return to Normal Activity Call your doctor if you observe: Fever of 101 or Higher, Shortness of breath, Swelling in the ankles Home Medications: Medications to take at Discharge Aspirin [Aspirin, Baby] 81 mg PO DAILY@0800 10/20/14 Ferrous Gluconate 325 mg PO DAILY@79910/21/14 Metoprolol Tartrate [Lopressor (beta apryl)] 100 mg PO BID 10/21/14 Pantoprazole Sodium [Protonix] 40 mg PO BID 10/21/14 Rosuvastatin Calcium [Crestor] 2.5 mg PO QHS 10/21/14 Nitroglycerin [Nitrostat] 0.4 mg SUBLINGUAL Q5M PRN 11/24/14 Gabapentin [Neurontin] 100 mg PO BID 07/02/15 Ergocalciferol [Vitamin D] 50,000 units PO SA 02/16/16 Niacinamide [Niacin] 500 mg PO BID 02/16/16 Montelukast Sodium [Singulair] 10 mg PO QHS 05/06/16 Ondansetron [Zofran Odt] 8 mg PO Q6H PRN PRN 03/31/17 Insulin Glargine,Hum.rec.anlog [Basaglar Kwikpen U-100] 52 unit SQ QHS 08/20/17 Insulin Aspart [Novolog Flexpen] 20 units SC TIDAC 10/08/17 Amlodipine [Norvasc] 5 mg PO DAILY 10/12/17 Sucralfate [Carafate] 1 gm PO 4X/DAY 10/12/17 Clopidogrel Bisulfate [Plavix] 75 mg PO DAILY #30 tab 10/16/17 Isosorbide Mononitrate [Imdur] 60 mg PO DAILY #30 tab 10/16/17 levoFLOXacin tablet [Levaquin tablet] 500 mg PO DAILY@0600 #8 tab 11/27/17 Following Prescrptions Were Given to Patient: levoFLOXacin tablet [Levaquin tablet] 500 mg PO DAILY@0600 #8 tab Primary Care Physician: Kim Field MD [Primary Care Provider] - Within 2 Weeks Disposition: Home with Home Health Minutes spent on discharge:: 32 Patient Condition:: Fair Medical Necessity - Tobacco Use Smoking Status: Former smoker Tobacco Use: Non-smoker Meaningful Use Info Meaningful Use Diagnoses (Choose all that apply): None applicable Code Visit Inpatient E&M: 34667 Disch Hosp
== END 2017-11-27 16:32 | disposition home health service (06) | DRG 277 ==
LOC: ED 02:13 → PCU 02:28
PROVIDERS: Admitting Provider Internal Medicine; Emergency Provider Emergency Medicine; Family Provider Internal Medicine; PCP Internal Medicine
DX: L03.116 Cellulitis of left lower limb (principal); N17.9 Acute kidney failure, unspecified; E87.5 Hyperkalemia; E11.65 Type 2 diabetes mellitus with hyperglycemia; D69.6 Thrombocytopenia, unspecified; N18.3 Chronic kidney disease, stage 3 (moderate); I35.0 Nonrheumatic aortic (valve) stenosis; L03.115 Cellulitis of right lower limb; Z79.4 Long term (current) use of insulin; Z79.899 Other long term (current) drug therapy; Z87.891 Personal history of nicotine dependence; I87.2 Venous insufficiency (chronic) (peripheral); E66.9 Obesity, unspecified; Z68.32 Body mass index [BMI] 32.0-32.9, adult; Z95.1 Presence of aortocoronary bypass graft; E11.22 Type 2 diabetes mellitus with diabetic chronic kidney disease; R07.9 Chest pain, unspecified
CPT/HCPCS: 36415; 80048; 82962; 83605; 84484; 85025; 85027; 87040; 93005; 94640; 97110; 97162; 97165; 97535; 97802; 99285; J7030; J7040; J7050; A4216

== ENCOUNTER 2017-12-24 08:44 | Outpatient (RCR) | payer MEDICAID, SELFPAY ==
[2017-11-27 00:46] VITALS: BP 147/57; PULSE 70; RESP 18; TEMP 36.4
[2017-12-17 15:20] VITALS: BP 120/61; PULSE 71; RESP 18; TEMP 36.4
--- NOTE | 2017-12-17 15:38 | WC ---
pt bilat lower ext wraps saturated with serosang draige with foul odor even after cleansing. pt has no shoes on when coming to wound center.
--- NOTE | 2017-12-17 18:32 | PCM.WC.PN ---
(1) Ulcer of right lower extremity with fat layer exposed Status: Acute Code(s): L97.912 - Non-pressure chronic ulcer of unspecified part of right lower leg with fat layer exposed Comment: anterior lower extremity ulcer (2) Non-pressure chronic ulcer of other part of left foot limited to breakdown of skin Status: Acute Code(s): L97.521 - Non-pressure chronic ulcer of other part of left foot limited to breakdown of skin Comment: circumferential ulcer (3) Non-pressure chronic ulcer of other part of right foot limited to breakdown of skin Status: Acute Code(s): L97.511 - Non-pressure chronic ulcer of other part of right foot limited to breakdown of skin Comment: circumferential ulcer (4) Delayed wound healing Status: Chronic Code(s): T14.8XXD - Other injury of unspecified body region, subsequent encounter (5) Noncompliance with treatment regimen Status: Chronic Code(s): Z91.19 - Patient's noncompliance with other medical treatment and regimen (6) Obesity (BMI 30.0-34.9) Status: Chronic Code(s): E66.9 - Obesity, unspecified (7) Venous insufficiency of both lower extremities Status: Chronic Code(s): I87.2 - Venous insufficiency (chronic) (peripheral) (8) Bilateral lower leg cellulitis Status: Resolved Code(s): L03.116 - Cellulitis of left lower limb; L03.115 - Cellulitis of right lower limb Type of Wound Date of Service: 12/17/17 Chief Complaint: Lower extremity ulcer and Maceration s/p recent hospital admission. History of Wound: Ms. Duque is a 66-year-old with a complex past medical history who is here as a follow up from recent hospital admission for lower extremity edema/ulcers. She has been seen here in the past most recently in May and typically does not routinely follow-up. She was seen most recently in the hospital and managed as a case of bilateral lower extremity ulcers and maceration. She was also noted to have significant maceration of both feet with foul-smelling creamy discharge and toe deformities. She is a poor historian and cannot really give a clear history of onset. She was noted to have had an Quincy wrap/Unna boot on for about 2 months. She was seen by Dr. Fascione and surgical debridement was recommended however, patient declined. She had venous studies done in July which were without any significant abnormalities. She saw Dr. Alicea previously and she recommended podiatry. Pt has superficial macerated ulcerations diffusely on the legs as well as dorsal bilateral forefeet. Ulcerations appear due to drainage. Pt has poor hygeine. Of note, patient was discharged by home health due to bed bug infestation in her house. 09/15--Improving with [place]cy wraps for compression, silver cell to open area on R francis, weaving aquacel ag interdigitally. Pt did come in last Thursday for nurse visit. Denies N/V/F/C. Denies pus, malodor, warmth, pain. Continued swelling of legs. Arterial testing scheduled for next week. 09/22--Still having a lot of drainage with maceration of webspaces due to drainage from her legs. Denies N/V/F/C. Denies pus, malodor, warmth, pain. Continued swelling of legs. Arterial testing reveals non-compressible vessels but triphasic waveforms. Will try Unna boots for irritated skin of legs, swelling. Will start the process of ordering edema pumps. 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 09/29--Still having a lot of drainage with maceration of webspaces due to drainage. Drainage is green. Denies N/V/F/C. Denies pus, malodor, warmth, pain. Continued swelling of legs. Arterial testing reveals non-compressible vessels but triphasic waveforms. Irritated skin of legs worse from Unna boot, switch back to 3M. Needs edema pumps. 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 11/08- Wound care taken over by Duc Silva NP. Continued swelling of legs with worsening redness, clear/yellow drainage coming from multiple superficial ulcerations on BLLE. Pt continues with gentian jose inbetween toes and triamcinolone cream on legs. Will trial drsgs on xerofoam, gauze, and coban. Pt instructed to follow up with derm. Given the symptoms, will also order some rheum labs to see if there is underlying rheum etiology. Progress of Wound: Stable. Has heavy clear discharge from bilateral superficial ulcerations and redness. She does have a new ulcer to the right lower extremity as well that patient is unsure of how it happened. The patient was admitted to [facility] from 11/25/2017 through 11/27/2018 for lower extremity cellulitis acute kidney injury and hyperkalemia. Infectious disease was consulted and patient was treated with IV Levaquin and then transition over to p.o. Levaquin. She states that she is going to refill the Levaquin tomorrow and has been taking it appropriately. However patient also notes that she has difficulty caring for herself at home and it was recommended during her hospital stay that she be discharged to care home facility, however patient refused at that time. She is now open to discussing penitentiary placement with her PCP when she sees them later this week. Her PCP is Dr. Field. - Physical Exam Vital Signs Temp Pulse Resp BP 97.6 F L 71 18 120/61 12/17/17 15:20 12/17/17 15:20 12/17/17 15:20 12/17/17 15:20 General: Alert, Oriented x3, Cooperative, No apparent distress, - - Poor hygiene disheveled HEENT: Atraumatic Cardiovascular: Regular rate Skin: Ulcer/ Wound - Superficial circumferential ulcers present bilateral lower extremities, new ulcer without layer exposed and slough present right lower extremity just below anterior knee. No signs of obvious infection. Both legs have heavy amount of clear serous drainage, very poor personal hygiene, dirt and debris present on feet and in between toes and on lower extremities Wound Measurements and Assessment WC - Nurse 1 - General Ulcer Measurement Start: 12/17/17 15:20 Freq: Status: Active Protocol: Activity Type Activity Date Activity User E-Sign Co-Sign Detail Recorded Client Recorded Date Recorded By Document 12/17/17 15:20 RB [id number] 12/17/17 15:39 RB 12/17/17 15:20 Wound Center Nurse 1 [Ulcer Assessment] #5- LLE CIRCUMFERENTIAL -Combined with other wound No -Current Size (cm) - Length 37.5 -Current Size (cm) - Width 35 -Current Size (cm) - Depth 0.1 -Total Square Cm 1312.5 -Epithelialization None Present -Tunneling No -Undermining/Tunneling No -Circular Undermining No -Classification - Thickness Full Thickness without Exposed Support Structure -Exudate Amt Large (67-100%) -Exudate Type Serosanguineous -Wound Margin Distinct, Outline Attached -Granulation Amt Medium (34-66%) -Granulation Quality [place] -Slough/Fibrin Yes -Necrosis Amt Medium (34-66%) -Necrotic Tissue Type Adherent Slough -Structure Exposed N/A -Texture (Melvi-wound Skin Appearance) Assessed -Moisture (Melvi-wound Skin Appearance Maceration ) -Color (Melvi-wound Skin Appearance) Assessed -Temperature (Melvi-wound Skin No Abnormality Appearance) (Pt Warm) -Tenderness on Palpation (Melvi-wound No Skin Appearance) -Ulcer Cleansing Wound Cleanser -Foul Odor after Cleansing No #4- RLE CIRCUMFERENTIAL -Combined with other wound No -Current Size (cm) - Length 39.5 -Current Size (cm) - Width 47 -Current Size (cm) - Depth 0.1 -Total Square Cm 1856.5 -Photo Taken No -Epithelialization None Present -Tunneling No -Undermining/Tunneling No -Circular Undermining No -Classification - Thickness Full Thickness without Exposed Support Structure -Exudate Amt Large (67-100%) -Exudate Type Serosanguineous -Wound Margin Distinct, Outline Attached -Granulation Amt Medium (34-66%) -Granulation Quality [place] -Slough/Fibrin Yes -Necrosis Amt Medium (34-66%) -Necrotic Tissue Type Adherent Slough -Structure Exposed N/A -Texture (Melvi-wound Skin Appearance) Assessed -Moisture (Melvi-wound Skin Appearance Maceration ) -Color (Melvi-wound Skin Appearance) Assessed -Temperature (Melvi-wound Skin No Abnormality Appearance) (Pt Warm) -Tenderness on Palpation (Melvi-wound No Skin Appearance) -Ulcer Cleansing Wound Cleanser -Foul Odor after Cleansing No [Edema Assessment] -Lower Limb Edema Present Yes -Right Calf (cm) 39.5 -Right Ankle (cm) 25 -Left Calf (cm) 39.5 -Left Ankle (cm) 23 12/17/17 15:38 Wound Center by Arlette Owens pt bilat lower ext wraps saturated with serosang draige with foul odor even after cleansing. pt has no shoes on when coming to wound center. Initialized on 12/17/17 15:38 - END OF NOTE WC - Nurse 2 - General Ulcer CM Notes Start: 12/17/17 15:20 Freq: Status: Active Protocol: Activity Type Activity Date Activity User E-Sign Co-Sign Detail Recorded Client Recorded Date Recorded By Document 12/17/17 17:05 [id number] 12/17/17 17:12 CS Document 12/17/17 17:26 [id number] 12/17/17 17:28 12/17/17 12/17/17 17:05 17:26 Wound Center Nurse 2 [Procedure/Treatment] #6 Right lower anterior extremity -Time 17:07 17:20 -Correct Patient Yes Yes -Correct Side, Site, Position Yes Yes -Correct Procedure Yes Yes -Procedure Performed Yes Yes -Type of Procedure Debridement Debridement -Clinical Debridement Subcutaneous Subcutaneous -Post Debridement Size (cm) - Length 6 5.9 -Post Debridement Size (cm) - Width 7 5.9 -Post Debridement Size (cm) - Depth 0.1 0.1 -Total Square Cm 42 34.81 -Wound/Ulcer Outcome Not Healed Not Healed -Ulcer Cleansing Rinsed/ Rinsed/ Irrigated with Irrigated with Saline Saline -Foul Odor after Cleansing No No -Bioengineered Tissue No No -Bleeding Controlled with NA Pressure -Treatment Response Procedure Procedure Tolerated Well Tolerated Well #5- LLE CIRCUMFERENTIAL -Time 17:11 -Wound/Ulcer Outcome Not Healed -Ulcer Cleansing Not Cleansed [See Physician Procedure note for Specifics] Pain Scale: 0-10 Numeric [Pain] -Is Patient Pain Free? Yes Yes Neurological: Neuro grossly intact Psych/Mental Status: Irrational Behavior, Alert and oriented to time, place, person, mood and affect Debridement Note Post-Debridement Measurements/Treatment - Nurse 2 - General Ulcer CM Notes Start: 12/17/17 15:20 Freq: Status: Active Protocol: Activity Type Activity Date Activity User E-Sign Co-Sign Detail Recorded Client Recorded Date Recorded By Document 12/17/17 17:05 [id number] 12/17/17 17:12 CS Document 12/17/17 17:26 [id number] 12/17/17 17:28 12/17/17 12/17/17 17:05 17:26 Wound Center Nurse 2 #6 Right lower anterior extremity -Time 17:07 17:20 -Correct Patient Yes Yes -Correct Side, Site, Position Yes Yes -Correct Procedure Yes Yes -Procedure Performed Yes Yes -Type of Procedure Debridement Debridement -Clinical Debridement Subcutaneous Subcutaneous -Post Debridement Size (cm) - Length 6 5.9 -Post Debridement Size (cm) - Width 7 5.9 -Post Debridement Size (cm) - Depth 0.1 0.1 -Total Square Cm 42 34.81 -Wound/Ulcer Outcome Not Healed Not Healed -Ulcer Cleansing Rinsed/ Rinsed/ Irrigated with Irrigated with Saline Saline -Foul Odor after Cleansing No No -Bioengineered Tissue No No -Bleeding Controlled with NA Pressure -Treatment Response Procedure Procedure Tolerated Well Tolerated Well #5- LLE CIRCUMFERENTIAL -Time 17:11 -Wound/Ulcer Outcome Not Healed -Ulcer Cleansing Not Cleansed Pain Scale: 0-10 Numeric Is Patient Pain Free? Yes Yes Wound debrided: Right lower extremity ulcer Laterality: Right Type of Debridement: Excisional debridement Anesthesia Used: 5% Lidocaine Gel Depth: in the subcutaneous layer Percentage of wound debrided: 100 Instrument Used: 5mm curette Tissue Removed: Slough and devitalized tissue Severity: Fat Layer Exposed Amount of bleeding with debridement: Mild Bleeding Controlled with: Pressure Patient tolerated procedure well Assessment/Plan Assessment: see diagnoses Plan: The patient was seen and examined at the wound center today and was updated on the plan of care. Most recent hospitalization reviewed and as described above. Wound cultures were reviewed with proteus, CoNS, PsA, burkholderia and she is completing her course of Levaquin. A subcutaneous debridement of her new right lower extremity ulcer was performed today. wound care is to consist of rinsing the affected extremities and dynahex, then wrapped in Xeroform gauze and Coban and applying Aquasol silver in between the toes and to the right lower extremity ulcer, hopefully this will help with her heavy amount of drainage. Patient does have home health coming daily, however would benefit from care home placement as she is very noncompliant and has very poor personal hygiene. Patient to discuss this with her primary care provider. The patient does have a history of arterial femoral pop bypass right lower extremity. Previous arterial Dopplers of the lower extremities revealed noncompressible vessels but triphasic waveforms bilaterally and recent venous duplex demonstrated absent vein due to bypass but remaining veins competent. Patient educated on the importance of diet on wound healing and instructed to increase protein and vitamin C intake. Patient verbalized understanding. Patient will follow up at wound healing center in one week or sooner if needed. Educated patient on the signs and symptoms of cellulitis and to seek emergent medical attention if these occur. The patient was instructed to follow-up with podiatry and dermatology and a contract was signed with the wound healing center during today's office visit as well. This note was generated with [employer] dictation software. It may contain incorrect words, spelling, and punctuation that were not noted in checking the note before signing. Code Visit [id number]: 06308 Olya subq tissue 20 sq cm/<
--- NOTE | 2017-12-17 18:45 | PN.PCM_ITS ---
(1) Ulcer of right lower extremity with fat layer exposed Status: Acute Code(s): L97.912 - Non-pressure chronic ulcer of unspecified part of right lower leg with fat layer exposed Comment: anterior lower extremity ulcer (2) Non-pressure chronic ulcer of other part of left foot limited to breakdown of skin Status: Acute Code(s): L97.521 - Non-pressure chronic ulcer of other part of left foot limited to breakdown of skin Comment: circumferential ulcer (3) Non-pressure chronic ulcer of other part of right foot limited to breakdown of skin Status: Acute Code(s): L97.511 - Non-pressure chronic ulcer of other part of right foot limited to breakdown of skin Comment: circumferential ulcer (4) Delayed wound healing Status: Chronic Code(s): T14.8XXD - Other injury of unspecified body region, subsequent encounter (5) Noncompliance with treatment regimen Status: Chronic Code(s): Z91.19 - Patient's noncompliance with other medical treatment and regimen (6) Obesity (BMI 30.0-34.9) Status: Chronic Code(s): E66.9 - Obesity, unspecified (7) Venous insufficiency of both lower extremities Status: Chronic Code(s): I87.2 - Venous insufficiency (chronic) (peripheral) (8) Bilateral lower leg cellulitis Status: Resolved Code(s): L03.116 - Cellulitis of left lower limb; L03.115 - Cellulitis of right lower limb Type of Wound Date of Service: 12/17/17 Chief Complaint: Lower extremity ulcer and Maceration s/p recent hospital admission. History of Wound: Ms. Duque is a 66-year-old with a complex past medical history who is here as a follow up from recent hospital admission for lower extremity edema/ulcers. She has been seen here in the past most recently in May and typically does not routinely follow-up. She was seen most recently in the hospital and managed as a case of bilateral lower extremity ulcers and maceration. She was also noted to have significant maceration of both feet with foul-smelling creamy discharge and toe deformities. She is a poor historian and cannot really give a clear history of onset. She was noted to have had an Quincy wrap/Unna boot on for about 2 months. She was seen by Dr. Fascione and surgical debridement was recommended however, patient declined. She had venous studies done in July which were without any significant abnormalities. She saw Dr. Alicea previously and she recommended podiatry. Pt has superficial macerated ulcerations diffusely on the legs as well as dorsal bilateral forefeet. Ulcerations appear due to drainage. Pt has poor hygeine. Of note, patient was discharged by home health due to bed bug infestation in her house. 09/15--Improving with Quincy wraps for compression, silver cell to open area on R francis, weaving aquacel ag interdigitally. Pt did come in last Thursday for nurse visit. Denies N/V/F/C. Denies pus, malodor, warmth, pain. Continued swelling of legs. Arterial testing scheduled for next week. 09/22-- Still having a lot of drainage with maceration of webspaces due to drainage from her legs. Denies N/V/F/C. Denies pus, malodor, warmth, pain. Continued swelling of legs. Arterial testing reveals non-compressible vessels but triphasic waveforms. Will try Unna boots for irritated skin of legs, swelling. Will start the process of ordering edema pumps. 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 09/29--Still having a lot of drainage with maceration of webspaces due to drainage. Drainage is green. Denies N/V/F/C. Denies pus, malodor, warmth, pain. Continued swelling of legs. Arterial testing reveals non-compressible vessels but triphasic waveforms. Irritated skin of legs worse from Unna boot, switch back to 3M. Needs edema pumps. 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 11/08- Wound care taken over by Duc Silva NP. Continued swelling of legs with worsening redness, clear/yellow drainage coming from multiple superficial ulcerations on BLLE. Pt continues with gentian jose inbetween toes and triamcinolone cream on legs. Will trial drsgs on xerofoam, gauze, and coban. Pt instructed to follow up with derm. Given the symptoms, will also order some rheum labs to see if there is underlying rheum etiology. Progress of Wound: Stable. Has heavy clear discharge from bilateral superficial ulcerations and redness. She does have a new ulcer to the right lower extremity as well that patient is unsure of how it happened. The patient was admitted to [facility] from 11/25/2017 through 11/27/2018 for lower extremity cellulitis acute kidney injury and hyperkalemia. Infectious disease was consulted and patient was treated with IV Levaquin and then transition over to p.o. Levaquin. She states that she is going to refill the Levaquin tomorrow and has been taking it appropriately. However patient also notes that she has difficulty caring for herself at home and it was recommended during her hospital stay that she be discharged to [facility] facility, however patient refused at that time. She is now open to discussing fpc placement with her PCP when she sees them later this week. Her PCP is Dr. Field. - Physical Exam Vital Signs Temp Pulse Resp BP 97.6 F L 71 18 120/61 12/17/17 15:20 12/17/17 15:20 12/17/17 15:20 12/17/17 15:20 General: Alert, Oriented x3, Cooperative, No apparent distress, - - Poor hygiene disheveled HEENT: Atraumatic Cardiovascular: Regular rate Skin: Ulcer/ Wound - Superficial circumferential ulcers present bilateral lower extremities, new ulcer without layer exposed and slough present right lower extremity just below anterior knee. No signs of obvious infection. Both legs have heavy amount of clear serous drainage, very poor personal hygiene, dirt and debris present on feet and in between toes and on lower extremities Wound Measurements and Assessment WC - Nurse 1 - General Ulcer Measurement Start: 12/17/17 15:20 Freq: Status: Active Protocol: Activity Type Activity Date Activity User E-Sign Co-Sign Detail Recorded Client Recorded Date Recorded By Document 12/17/17 15:20 RB [id number] 12/17/17 15:39 RB 12/17/17 15:20 Wound Center Nurse 1 [Ulcer Assessment] #5- LLE CIRCUMFERENTIAL -Combined with other wound No -Current Size (cm) - Length 37.5 -Current Size (cm) - Width 35 -Current Size (cm) - Depth 0.1 -Total Square Cm 1312.5 -Epithelialization None Present -Tunneling No -Undermining/Tunneling No -Circular Undermining No -Classification - Thickness Full Thickness without Exposed Support Structure -Exudate Amt Large (67-100%) -Exudate Type Serosanguineous -Wound Margin Distinct, Outline Attached -Granulation Amt Medium (34-66%) -Granulation Quality [place] -Slough/Fibrin Yes -Necrosis Amt Medium (34-66%) -Necrotic Tissue Type Adherent Slough -Structure Exposed N/A -Texture (Melvi-wound Skin Appearance) Assessed -Moisture (Melvi-wound Skin Appearance Maceration ) -Color (Melvi-wound Skin Appearance) Assessed -Temperature (Melvi-wound Skin No Abnormality Appearance) (Pt Warm) -Tenderness on Palpation (Melvi-wound No Skin Appearance) -Ulcer Cleansing Wound Cleanser -Foul Odor after Cleansing No #4- RLE CIRCUMFERENTIAL -Combined with other wound No -Current Size (cm) - Length 39.5 -Current Size (cm) - Width 47 -Current Size (cm) - Depth 0.1 -Total Square Cm 1856.5 -Photo Taken No -Epithelialization None Present -Tunneling No -Undermining/Tunneling No -Circular Undermining No -Classification - Thickness Full Thickness without Exposed Support Structure -Exudate Amt Large (67-100%) -Exudate Type Serosanguineous -Wound Margin Distinct, Outline Attached -Granulation Amt Medium (34-66%) -Granulation Quality [place] -Slough/Fibrin Yes -Necrosis Amt Medium (34-66%) -Necrotic Tissue Type Adherent Slough -Structure Exposed N/A -Texture (Melvi-wound Skin Appearance) Assessed -Moisture (Melvi-wound Skin Appearance Maceration ) -Color (Melvi-wound Skin Appearance) Assessed -Temperature (Melvi-wound Skin No Abnormality Appearance) (Pt Warm) -Tenderness on Palpation (Melvi-wound No Skin Appearance) -Ulcer Cleansing Wound Cleanser -Foul Odor after Cleansing No [Edema Assessment] -Lower Limb Edema Present Yes -Right Calf (cm) 39.5 -Right Ankle (cm) 25 -Left Calf (cm) 39.5 -Left Ankle (cm) 23 12/17/17 15:38 Wound Center by Arlette Owens pt bilat lower ext wraps saturated with serosang draige with foul odor even after cleansing. pt has no shoes on when coming to wound center. Initialized on 12/17/17 15:38 - END OF NOTE WC - Nurse 2 - General Ulcer CM Notes Start: 12/17/17 15:20 Freq: Status: Active Protocol: Activity Type Activity Date Activity User E-Sign Co-Sign Detail Recorded Client Recorded Date Recorded By Document 12/17/17 17:05 [id number] 12/17/17 17:12 CS Document 12/17/17 17:26 [id number] 12/17/17 17:28 12/17/17 12/17/17 17:05 17:26 Wound Center Nurse 2 [Procedure/Treatment] #6 Right lower anterior extremity -Time 17:07 17:20 -Correct Patient Yes Yes -Correct Side, Site, Position Yes Yes -Correct Procedure Yes Yes -Procedure Performed Yes Yes -Type of Procedure Debridement Debridement -Clinical Debridement Subcutaneous Subcutaneous -Post Debridement Size (cm) - Length 6 5.9 -Post Debridement Size (cm) - Width 7 5.9 -Post Debridement Size (cm) - Depth 0.1 0.1 -Total Square Cm 42 34.81 -Wound/Ulcer Outcome Not Healed Not Healed -Ulcer Cleansing Rinsed/ Rinsed/ Irrigated with Irrigated with Saline Saline -Foul Odor after Cleansing No No -Bioengineered Tissue No No -Bleeding Controlled with NA Pressure -Treatment Response Procedure Procedure Tolerated Well Tolerated Well #5- LLE CIRCUMFERENTIAL -Time 17:11 -Wound/Ulcer Outcome Not Healed -Ulcer Cleansing Not Cleansed [See Physician Procedure note for Specifics] Pain Scale: 0-10 Numeric [Pain] -Is Patient Pain Free? Yes Yes Neurological: Neuro grossly intact Psych/Mental Status: Irrational Behavior, Alert and oriented to time, place, person, mood and affect Debridement Note Post-Debridement Measurements/Treatment - Nurse 2 - General Ulcer CM Notes Start: 12/17/17 15:20 Freq: Status: Active Protocol: Activity Type Activity Date Activity User E-Sign Co-Sign Detail Recorded Client Recorded Date Recorded By Document 12/17/17 17:05 [id number] 12/17/17 17:12 CS Document 12/17/17 17:26 [id number] 12/17/17 17:28 12/17/17 12/17/17 17:05 17:26 Wound Center Nurse 2 #6 Right lower anterior extremity -Time 17:07 17:20 -Correct Patient Yes Yes -Correct Side, Site, Position Yes Yes -Correct Procedure Yes Yes -Procedure Performed Yes Yes -Type of Procedure Debridement Debridement -Clinical Debridement Subcutaneous Subcutaneous -Post Debridement Size (cm) - Length 6 5.9 -Post Debridement Size (cm) - Width 7 5.9 -Post Debridement Size (cm) - Depth 0.1 0.1 -Total Square Cm 42 34.81 -Wound/Ulcer Outcome Not Healed Not Healed -Ulcer Cleansing Rinsed/ Rinsed/ Irrigated with Irrigated with Saline Saline -Foul Odor after Cleansing No No -Bioengineered Tissue No No -Bleeding Controlled with NA Pressure -Treatment Response Procedure Procedure Tolerated Well Tolerated Well #5- LLE CIRCUMFERENTIAL -Time 17:11 -Wound/Ulcer Outcome Not Healed -Ulcer Cleansing Not Cleansed Pain Scale: 0-10 Numeric Is Patient Pain Free? Yes Yes Wound debrided: Right lower extremity ulcer Laterality: Right Type of Debridement: Excisional debridement Anesthesia Used: 5% Lidocaine Gel Depth: in the subcutaneous layer Percentage of wound debrided: 100 Instrument Used: 5mm curette Tissue Removed: Slough and devitalized tissue Severity: Fat Layer Exposed Amount of bleeding with debridement: Mild Bleeding Controlled with: Pressure Patient tolerated procedure well Assessment/Plan Assessment: see diagnoses Plan: The patient was seen and examined at the wound center today and was updated on the plan of care. Most recent hospitalization reviewed and as described above. Wound cultures were reviewed with proteus, CoNS, PsA, burkholderia and she is completing her course of Levaquin. A subcutaneous debridement of her new right lower extremity ulcer was performed today. wound care is to consist of rinsing the affected extremities and dynahex, then wrapped in Xeroform gauze and Coban and applying Aquasol silver in between the toes and to the right lower extremity ulcer, hopefully this will help with her heavy amount of drainage. Patient does have home health coming daily, however would benefit from [facility] placement as she is very noncompliant and has very poor personal hygiene. Patient to discuss this with her primary care provider. The patient does have a history of arterial femoral pop bypass right lower extremity. Previous arterial Dopplers of the lower extremities revealed noncompressible vessels but triphasic waveforms bilaterally and recent venous duplex demonstrated absent vein due to bypass but remaining veins competent. Patient educated on the importance of diet on wound healing and instructed to increase protein and vitamin C intake. Patient verbalized understanding. Patient will follow up at wound healing center in one week or sooner if needed. Educated patient on the signs and symptoms of cellulitis and to seek emergent medical attention if these occur. The patient was instructed to follow-up with podiatry and dermatology and a contract was signed with the wound healing center during today's office visit as well. This note was generated with [employer] dictation software. It may contain incorrect words, spelling, and punctuation that were not noted in checking the note before signing. Code Visit [id number]: 23709 Olya subq tissue 20 sq cm/<
--- NOTE | 2017-12-24 14:15 | WC ---
Spoke with Tali, nurse at [facility]. States that patient has been noncompliant and [facility] has notified Adult Protective services of patient's living condition. Pt. did not seed cone picker Levaquin prescription that was prescribed and nurses from [facility] are refusing to return to patient's home due to conditions of home.
== END 2017-12-26 23:59 ==
LOC: WC 08:44
PROVIDERS: Family Provider Internal Medicine; PCP Internal Medicine; Visit Provider Nurse Practitioner Family
DX: I87.2 Venous insufficiency (chronic) (peripheral) (principal); L97.521 Non-pressure chronic ulcer of other part of left foot limited to breakdown of skin; L97.511 Non-pressure chronic ulcer of other part of right foot limited to breakdown of skin; L97.812 Non-pressure chronic ulcer of other part of right lower leg with fat layer exposed; Z91.19 Patient's noncompliance with other medical treatment and regimen; E66.9 Obesity, unspecified; Z68.30 Body mass index [BMI] 30.0-30.9, adult; Z71.3 Dietary counseling and surveillance
CPT/HCPCS: 11042

== ENCOUNTER 2017-12-27 01:44 | Inpatient (IN) | payer MEDICAID, SELFPAY ==
[2017-12-27] VITALS (18 sets, daily range): BP systolic 108–146; BP diastolic 42–80; PULSE 71–101; RESP 14–20; TEMP 36.4–37; O2SAT 94–99; BMI 31.0; BMI 32.3; BMI 32.4
[2017-12-27 02:48] LABS: Absolute Lymphocyte Count 0.61 X10^3/ul (0.83-4.51); Absolute Neutrophil Count 6.1 X10^3/uL (2.0-7.7); Basophil# 0.02 X10^3/uL; Basophil% 0.3 % (0-1); Eosinophil# 0.21 X10^3/uL; Eosinophils% 2.8 % (0-5); Hematocrit 29.3 % (37-47); Lymphocyte # 0.61 X10^3/ul (4.0); Lymphocyte % 8.1 % (19-41); Mean Corp Hgb Conc 30.7 g/gl (32-36); Mean Corpuscular Hgb 30.2 pg (27.0-32.0); Mean Corpuscular Volume 98.3 fL (81-99); Monocyte# 0.59 X10^3/uL; Monocyte% 7.8 % (0-10); Neutrophil % 80.6 % (47-70); Platelet Count 109 K/mm3 (150-450); RBC Distribution Width CV 15.9 % (11.6-14.6); RBC Distribution Width SD 55.4 fl (35.1-43.9); Red Blood Count 2.98 M/mm3 (4.2-5.4); White Blood Count 7.6 K/mm3 (4.4-11.0)
[2017-12-27 02:56] LABS: POSITIVE COUNT NO; POSITIVE DIFFERENTIAL NO; POSITIVE MORPHOLOGY NO
[2017-12-27 03:20] LABS: Anion Gap 7 (5-15); BUN 52 mg/dL (7-18); BUN/Creat Ratio 22.2 RATIO (10-20); Calcium,Total 7.9 mg/dL (8.5-10.1); Chloride 120 mmol/L (98-107); Creatinine, Serum 2.34 mg/dL (0.55-1.02); EST Glomerular Filtration Rate 22 mL/min (>60); Est Glom Filt Rate - Afr Amer 27 mL/min (>60); Estimated Creatinine Clearance 23.53 ml/min; Glucose 120 mg/dL (74-106); Potassium 6.7 mmol/L (3.5-5.1); Sodium Level 145 mmol/L (136-145)
--- NOTE | 2017-12-27 03:20 | ED.RN ---
lab called with critical lab results. potassium level 6.7. Dr. Castaneda made aware. No new orders at this time
--- NOTE | 2017-12-27 03:24 | EKG12_ITS ---
Test Reason : SOB Blood Pressure : / mmHG Vent. Rate : 078 BPM Atrial Rate : 078 BPM P-R Int : 134 ms QRS Dur : 078 ms QT Int : 346 ms P-R-T Axes : 040 039 052 degrees QTc Int : 394 ms Normal sinus rhythm Normal ECG Confirmed by ANUSHKA CHANCE, PASTOR ([id number]), brands editor PROMISE DICKINSON ([id number]) on 12/31/2017 3:36:25 PM Referred By: JEANNE Confirmed By:PASTOR REVELES MD
[2017-12-27] MEDS: Albuterol 2.5 MG/3 ML VIAL.NEB. INHALATION (03:44)
[2017-12-27] MEDS: Dextrose 50%-Water 25 GM/50 ML DISP.SYRIN IV (03:49)
[2017-12-27] MEDS: 0.9% Normal Saline 1,000 ML 999 ML IV (03:50)
[2017-12-27] MEDS: Sodium Polystyrene Sulfonate 15 GM/60 ML UDC 45 GM PO (03:50)
[2017-12-27 04:10] LABS: Mucous, Urine 0 SEEN /hpf (<or=2+)
[2017-12-27 04:13] LABS: Color, Urine Yellow (Yellow); Glucose, Dipstick Normal (Normal); Ketone-Dipstick Negative (Negative); Leukocyte Esterase-Dipstick 500 /ul (Negative); Nitrite-Dipstick Negative (Negative); Occult Blood-Urine 10 /ul (Negative); Protein-Dipstick 30 mg/dl (Negative); Specific Gravity, Urine 1.015 (1.002-1.030); Urine Bilirubin Dipstick Negative (Negative); Urine Urobilinogen Normal (Normal)
--- NOTE | 2017-12-27 04:17 | ED.DCSUM_ITS ---
- ER Visit Summary Date of Service: 12/27/17 Chief Complaint: Fall History of Present Illness: The patient is a [address] Field and Dr. Bull. She reports that tonight she went to get on the commode and tripped over her dressings and fell. No blow to the head or loss of consciousness. She is not on any blood thinners. No neck, back, shoulder, wrist, or hip pain. Patient reports she has had dysuria for the past 2 days. She has chronic rash to her lower extremities that is been present for months. She reports that the visiting nurse has been coming daily for approximately 1 month. They wash it and then wrapped it with Coban. Review of systems: General: No fever, chills, cold sweats. Cardiovascular: No chest pain, palpitations. Respiratory: No cough, shortness of breath, dyspnea on exertion. Gastrointestinal: No abdominal pain, nausea, vomiting, diarrhea, melena, or hematochezia. Genitourinary: No frequency, hematuria. Neuro: No headache, numbness, weakness. Physical Examination: Vitals: Stable. Afebrile. General: Well-nourished and well-developed. Head: Normocephalic atraumatic. Neck: Supple, no lymphadenopathy. No JVD. Nontender. Cardiovascular: Regular rate and rhythm. No murmurs. Respiratory: No respiratory distress. Clear to auscultation bilaterally. Abdominal: Soft, nontender, nondistended, normal bowel sounds. No guarding, rebound, or peritoneal signs. Back: Nontender. Extremities: Superficial sloughing of her skin on her legs bilaterally. The exposed area is bright red. It is nontender. There is no crepitus. She does have 2+ edema. She has 1+ dorsalis pedis pulse bilaterally. Skin: Normal color, no rash. Neurologic: Alert and oriented ?3. Cranial nerves II through XII are intact. Normal strength and sensation. Psych: Normal affect. Test Results: EKG is sinus at 78 with a normal QRS interval of 78. Chem-7 is more for creatinine 2.34, potassium 6.7, chloride 120, CO2 of 18, BUN 52, glucose 120, calcium 7.9. Creatinine was 2.37 on admission November 25 and 1.18 on discharge November 27. CBC is more for an H&H 9.0 and 29.3, platelet is 109, 7 neutrophils 81, leukocytes of 8. Emergency Department Course and Treatment: Patient had an IV placed. She was given a liter of normal saline. When her potassium returned she was given insulin IV and D50 IV. She was given Kayexalate p.o. and albuterol aerosol. Treatment Plan: Patient clearly is unable to care for herself at home. She again has acute renal failure and hyperkalemia. She was discussed with Dr. Echeverria and will be admitted to the hospital for further evaluation and treatment. Disposition: Admitted in serious condition. Impression: 1. Acute renal insufficiency. 2. Hyperkalemia. 3. Chronic ulcers to legs bilaterally. 4. Hypochloremic metabolic acidosis. 5. Critical care time 30 minutes. This note was generated with [employer] dictation software. It may contain incorrect words, spelling, and punctuation that were not noted in review of the chart prior to signing ED Disposition - Plan for ED Patient: Chief Complaint: Lower Extremity Injury
[2017-12-27 04:21] LABS: Bacteria RARE /hpf (None Seen); Calcium Oxalate Crystals Ur RARE /hpf (<or=2+)
[2017-12-27 04:22] LABS: Hyaline Cast 0-5 SEEN /lpf (0-5); Red Blood Cells-Urine 0-5 SEEN /hpf (0-5); White Blood Cells 5-10 SEEN /hpf (0-5); Yeast-Urine RARE /hpf (None Seen)
--- NOTE | 2017-12-27 04:22 | NURSING ---
Called ED to tell them OK to send patient to PCU. ED RN verbalized understanding.
[2017-12-27 04:23] LABS: Squamous Epithelial Cells - UA 0-5 SEEN /hpf (5-10)
[2017-12-27 04:24] LABS: Urine Clarity Sl Cloudy (Clear)
[2017-12-27] MEDS: 0.9% Normal Saline 1,000 ML 150 ML IV ×2 (05:06→12:30)
--- NOTE | 2017-12-27 05:08 | PCM.HP.STD ---
Problem List (1) Fall at home Status: Acute Qualifiers: Encounter type: initial encounter Qualified Code(s): W19.XXXA - Unspecified fall, initial encounter; Y92.009 - Unspecified place in unspecified non-institutional (private) residence as the place of occurrence of the external cause (2) Generalized weakness Status: Chronic History of Present Illness Date of Admission: 12/27/17 Chief Complaint: Fall at home, generalized weakness The patient is a 67 year old F seen in the emergency room at [facility] after sustaining a fall in her bathroom at home and the patient could not get up. Patient lives with her brother who provides very little help for her, she was recently admitted to the hospital at [facility] in October 2017 for hyperkalemia and acute on chronic renal failure, at that time I admitted the patient and felt that the patient was not able to take care of herself at home, she declined to go to a snf during that admission. Evaluation in the emergency room this morning revealed her labs to be significant for a potassium of 6.7, and he was elevated at 2.34, BUN was 62. Patient's hemoglobin was 9. EKG did not show any evidence of QT interval prolongation. Patient cannot provide a urine so she had to be catheterized, at the time of this dictation, her urinalysis is pending. Patient will be admitted to PCU for hyperkalemia and acute on chronic renal failure, she will be given IV fluids, she was given Kayexalate, albuterol aerosol treatment, insulin, and IV dextrose in the emergency room, labs will be rechecked, she will be seen by PT and OT. Again it is obvious that she cannot take care of herself at home and she needs placed in a senior living facility. Patient knows none of her medications and I am not sure if she is even taking her medications appropriately at home. Past Medical History Past Medical History (Chronic Problems): Chronic Problems Ulcer of right lower extremity with fat layer exposed (Chronic) anterior lower extremity ulcer Generalized weakness (Chronic) Venous insufficiency of both lower extremities (Chronic) Other specified peripheral vascular diseases (Chronic) Ulcer of left lower extremity with fat layer exposed (Chronic) Ulcer of right lower extremity with fat layer exposed (Chronic) Delayed wound healing (Chronic) Maceration of skin (Chronic) Acquired deformity of toe of both feet (Chronic) Type 2 diabetes mellitus with diabetic peripheral angiopathy without gangrene (Chronic) Lymphedema in adult patient (Chronic) Noncompliance with treatment regimen (Chronic) 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) Aortic stenosis, mild (Chronic) Pulmonary arterial hypertension (Chronic) Pulmonary nodules (Chronic) Cholelithiasis (Chronic) Tricuspid regurgitation (Chronic) History of esophageal reflux (Chronic) History of hyperlipidemia (Chronic) History of hypertension (Chronic) S/P CABG (coronary artery bypass graft) (Chronic) Obesity (BMI 30.0-34.9) (Chronic) Stasis dermatitis of both legs (Chronic) 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) Thrombocytopenia (Chronic) Neuropathy, peripheral (Chronic) Allergies Penicillins Allergy (Verified 12/27/17 01:50) Rash rosiglitazone maleate [From Avandia] Allergy (Verified 12/27/17 01:50) Swelling & diarrhea simvastatin [From Zocor] Allergy (Verified 12/27/17 01:50) Muscle weakness atorvastatin calcium [From Lipitor] Adverse Reaction (Verified 12/27/17 01:50) Muscle weakness esomeprazole magnesium [From Nexium] Adverse Reaction (Verified 12/27/17 01:50) Diarrhea lansoprazole [From Prevacid] Adverse Reaction (Verified 12/27/17 01:50) Diarrhea Sulfa (Sulfonamide Antibiotics) Adverse Reaction (Verified 12/27/17 01:50) Nausea/Vom/Diarrhea from PCP office records Home Medications: Ambulatory Orders Medication Instructions Recorded Aspirin [Aspirin, Baby] 81 mg PO DAILY@0810/20/14 Ferrous Gluconate 325 mg PO DAILY@79910/21/14 Metoprolol Tartrate [Lopressor 100 mg PO BID 10/21/14 (beta apryl)] Pantoprazole Sodium [Protonix] 40 mg PO BID 10/21/14 Rosuvastatin Calcium [Crestor] 2.5 mg PO QHS 10/21/14 Nitroglycerin [Nitrostat] 0.4 mg SUBLINGUAL Q5M PRN 11/24/14 Gabapentin [Neurontin] 100 mg PO BID 07/02/15 Ergocalciferol [Vitamin D] 50,000 units PO SA 02/16/16 Niacinamide [Niacin] 500 mg PO BID 02/16/16 Montelukast Sodium [Singulair] 10 mg PO QHS 05/06/16 Ondansetron [Zofran Odt] 8 mg PO Q6H PRN PRN 03/31/17 Insulin Glargine,Hum.rec.anlog 52 unit SQ QHS 08/20/17 [Basaglar Kwikpen U-100] Insulin Aspart [Novolog Flexpen] 20 units SC TIDAC 10/08/17 Amlodipine [Norvasc] 5 mg PO DAILY 10/12/17 Sucralfate [Carafate] 1 gm PO 4X/DAY 10/12/17 Clopidogrel Bisulfate [Plavix] 75 mg PO DAILY #30 tab 10/16/17 Isosorbide Mononitrate [Imdur] 60 mg PO DAILY #30 tab 10/16/17 levoFLOXacin tablet [Levaquin 500 mg PO DAILY@0600 #8 tab 11/27/17 tablet] Surgical History: coronary bypass surgery, - - Right femoral bypass surgery, cochlear impants Psychiatric History: No pertinent psych hx 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 Denies: Anorexia, Chills, Fever, Night Sweats, Malaise, Weight Change Eyes: Denies: Blurred vision, Cataracts, Conjunctivae Inflammation, Double vision, Drainage HEENT: Denies: Difficulty Swallowing, Dysphasia, Ear Pain, Eye Pain, Hearing Changes, Nasal bleeding, Nasal Congestion, Post Nasal Drip Cardiovascular: Denies: Chest Pain, Claudication, Chest Pressure, Chest Tightness, Edema, Heaviness, Palpitations Respiratory: Denies: Cough, Hemoptysis, Pleuritic Pain, Shortness of Breath, Shortness of breath at rest, Shortness of breath upon exertion, Sputum production Gastrointestinal: Denies: Abdominal Pain, Constipation, Diarrhea, Hematemesis, Hematochezia, Nausea, Melena, Vomiting Genitourinary: Denies: Dysuria, Frequency, Hematuria, Hesitancy, Urgency Gynecological: Denies: Breast symptoms Musculoskeletal: Denies: Back Pain, Joint Pain, Joint stiffness, Joint swelling, Joint Tenderness Skin: Reports: Wounds - Patient has lymphedema of her lower extremities along with chronic wounds, she is seen by a home nursing service for bandage changes. Denies: Dryness, Jaundice, Pruritis, Rash Neurological: Reports: Balance problems, Incoordination. Denies: Blurred vision, Double vision, Slurred speech, Difficulty swallowing, Focal weakness, Numbness, Tingling Psychiatric: Denies: Anxiety, Depression, Homicidal Ideations, Suicidal Ideations Endocrine: Denies: Change in Body Habitus, Heat/ Cold Intolerance, Polydipsia, Polyuria Hematologic/ Lymphatic: Denies: Adenopathy, Anemia, Easy Bruising, Easy Bleeding, Petechiae, Purpura VTE Information - Inpt Only VTE Present on Admission: No VTE Mechan Device Prophylaxis: None VTE Pharm Prophylaxis ordered?: Yes Patient Problems: Active and Suspected Problems Fall at home (Acute) - Physical Exam General: Alert, Oriented x3, Cooperative, No apparent distress, Well developed, - - Patient is hard of hearing, she is a poor informant HEENT: Atraumatic, PERRLA, EOMI, Normocephalic Oral: Moist Mucosa Neck: Supple, No JVD, Negative Carotid Bruits, No Nuchal Rigidity, Trachea Midline, Thyroid Normal Size and Texture Lungs: Clear to auscultation, Normal air movement, No rhonchi, No wheeze, No rales Cardiovascular: Regular rate, Regular Rhythm, Normal S1, Normal S2, No murmurs, No Ectopic Activity, PMI Normal, No rub noted, No Gallop Abdomen: Bowel Sounds Present, Soft, Non Tender, Non-Distended, No hernias noted Extremities: No clubbing, No cyanosis, Capillary Refill Less than 3 Seconds, Edema - Chronic lymphedematous changes are noted over the lower legs Skin: Ulcer/ Wound - There are chronic wounds of the patient's lower legs involving skin areas on a background of chronic lymphedema Musculoskeletal: No Tenderness to Palpation of Joints or Extremities Neurological: Cranial nerves II-XII grossly intact, Neuro grossly intact, Sensory exam intact to light touch and pain Psych/Mental Status: Appropriate, Flat Affect, - - Patient is a poor informant Vital Signs Temp Pulse Resp BP Pulse Ox 97.7 F L 85 20 H 132/80 H 95 12/27/17 04:40 12/27/17 04:40 12/27/17 04:40 12/27/17 04:40 12/27/17 04:57 Oxygen Delivery Method Room Air Weight: 96.6 kg Body Mass Index (BMI) 32.3 Laboratory Tests Past 24 Hrs 12/27/17 04:05 Urine Color Yellow Urine Clarity Sl Cloudy Urine pH 5.0 Ur Specific Arab 1.015 Urine Protein 30 H Urine Glucose (UA) Normal Urine Ketones Negative Urine Occult Blood 10 H Urine Nitrite Negative Urine Bilirubin Negative Urine Urobilinogen Normal Ur Leukocyte Esterase 500 H Urine RBC 0-5 SEEN Urine WBC 5-10 SEEN Ur Squamous Epith Cells 0-5 SEEN Calcium Oxalate Crystal RARE Urine Bacteria RARE Hyaline Casts 0-5 SEEN Urine Mucus 0 SEEN Urine Yeast RARE Assessment/Plan All Active Problems Fall at home (Acute) Bilateral lower leg cellulitis (Resolved) KIM (acute kidney injury) (Acute) Malaise (Resolved) Fever (Resolved) Non-pressure chronic ulcer of other part of left lower leg limited to breakdown of skin (Resolved) Non-pressure chronic ulcer of other part of right foot limited to breakdown of skin (Resolved) Non-pressure chronic ulcer of other part of left foot limited to breakdown of skin (Resolved) Acute on chronic diastolic heart failure (Resolved) Acute CHF (congestive heart failure) (Resolved) Acute respiratory failure with hypoxia (Resolved) KIM (acute kidney injury) (Ruled-out) Bilateral lower leg cellulitis (Resolved) Diarrhea (Resolved) Cellulitis of right lower extremity (Ruled-out) BRBPR (bright red blood per rectum) (Resolved) C. difficile colitis (Resolved) Hyperkalemia (Resolved) #1 hyperkalemia-etiology unclear, again patient at one time was on spironolactone at home, it is possible that she is taking it inappropriately, she will need supervision with her medications if she chooses to return home rather than go to a snf. Patient was given Kayexalate in the emergency room, she was given an albuterol aerosol, she was given IV insulin and D50. Labs will be rechecked #2 acute on chronic renal failure-patient will be given IV fluids and labs will be rechecked #3 type 2 diabetes #4 chronic lymphedema of the legs-wound care nurse will be consulted, it is unknown what dressing arrangements were made by home nursing services at this time #5 noncompliance with medical regimen-again I feel the patient needs to be placed in a senior living facility #6 pulmonary hypertension #7 anemia of chronic disease #8 self-neglect Code Visit Inpatient E&M: 66066 Init Hosp L3
--- NOTE | 2017-12-27 05:18 | HP.PCM_ITS ---
Problem List (1) Fall at home Status: Acute Qualifiers: Encounter type: initial encounter Qualified Code(s): W19.XXXA - Unspecified fall, initial encounter; Y92.009 - Unspecified place in unspecified non-institutional (private) residence as the place of occurrence of the external cause (2) Generalized weakness Status: Chronic History of Present Illness Date of Admission: 12/27/17 Chief Complaint: Fall at home, generalized weakness The patient is a 67 year old F seen in the emergency room at [facility] after sustaining a fall in her bathroom at home and the patient could not get up. Patient lives with her brother who provides very little help for her, she was recently admitted to the hospital at [facility] in October 2017 for hyperkalemia and acute on chronic renal failure, at that time I admitted the patient and felt that the patient was not able to take care of herself at home, she declined to go to a correction during that admission. Evaluation in the emergency room this morning revealed her labs to be significant for a potassium of 6.7, and he was elevated at 2.34, BUN was 62. Patient's hemoglobin was 9. EKG did not show any evidence of QT interval prolongation. Patient cannot provide a urine so she had to be catheterized, at the time of this dictation, her urinalysis is pending. Patient will be admitted to PCU for hyperkalemia and acute on chronic renal failure, she will be given IV fluids, she was given Kayexalate, albuterol aerosol treatment, insulin, and IV dextrose in the emergency room, labs will be rechecked, she will be seen by PT and OT. Again it is obvious that she cannot take care of herself at home and she needs placed in a senior living facility. Patient knows none of her medications and I am not sure if she is even taking her medications appropriately at home. Past Medical History Past Medical History (Chronic Problems): Chronic Problems Ulcer of right lower extremity with fat layer exposed (Chronic) anterior lower extremity ulcer Generalized weakness (Chronic) Venous insufficiency of both lower extremities (Chronic) Other specified peripheral vascular diseases (Chronic) Ulcer of left lower extremity with fat layer exposed (Chronic) Ulcer of right lower extremity with fat layer exposed (Chronic) Delayed wound healing (Chronic) Maceration of skin (Chronic) Acquired deformity of toe of both feet (Chronic) Type 2 diabetes mellitus with diabetic peripheral angiopathy without gangrene ( Chronic) Lymphedema in adult patient (Chronic) Noncompliance with treatment regimen (Chronic) 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) Aortic stenosis, mild (Chronic) Pulmonary arterial hypertension (Chronic) Pulmonary nodules (Chronic) Cholelithiasis (Chronic) Tricuspid regurgitation (Chronic) History of esophageal reflux (Chronic) History of hyperlipidemia (Chronic) History of hypertension (Chronic) S/P CABG (coronary artery bypass graft) (Chronic) Obesity (BMI 30.0-34.9) (Chronic) Stasis dermatitis of both legs (Chronic) 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) Thrombocytopenia (Chronic) Neuropathy, peripheral (Chronic) Allergies Penicillins Allergy (Verified 12/27/17 01:50) Rash rosiglitazone maleate [From Avandia] Allergy (Verified 12/27/17 01:50) Swelling & diarrhea simvastatin [From Zocor] Allergy (Verified 12/27/17 01:50) Muscle weakness atorvastatin calcium [From Lipitor] Adverse Reaction (Verified 12/27/17 01:50) Muscle weakness esomeprazole magnesium [From Nexium] Adverse Reaction (Verified 12/27/17 01:50) Diarrhea lansoprazole [From Prevacid] Adverse Reaction (Verified 12/27/17 01:50) Diarrhea Sulfa (Sulfonamide Antibiotics) Adverse Reaction (Verified 12/27/17 01:50) Nausea/Vom/Diarrhea from PCP office records Home Medications: Ambulatory Orders Medication Instructions Recorded Aspirin [Aspirin, Baby] 81 mg PO DAILY@0810/20/14 Ferrous Gluconate 325 mg PO DAILY@79910/21/14 Metoprolol Tartrate [Lopressor 100 mg PO BID 10/21/14 (beta apryl)] Pantoprazole Sodium [Protonix] 40 mg PO BID 10/21/14 Rosuvastatin Calcium [Crestor] 2.5 mg PO QHS 10/21/14 Nitroglycerin [Nitrostat] 0.4 mg SUBLINGUAL Q5M PRN 11/24/14 Gabapentin [Neurontin] 100 mg PO BID 07/02/15 Ergocalciferol [Vitamin D] 50,000 units PO SA 02/16/16 Niacinamide [Niacin] 500 mg PO BID 02/16/16 Montelukast Sodium [Singulair] 10 mg PO QHS 05/06/16 Ondansetron [Zofran Odt] 8 mg PO Q6H PRN PRN 03/31/17 Insulin Glargine,Hum.rec.anlog 52 unit SQ QHS 08/20/17 [Basaglar Kwikpen U-100] Insulin Aspart [Novolog Flexpen] 20 units SC TIDAC 10/08/17 Amlodipine [Norvasc] 5 mg PO DAILY 10/12/17 Sucralfate [Carafate] 1 gm PO 4X/DAY 10/12/17 Clopidogrel Bisulfate [Plavix] 75 mg PO DAILY #30 tab 10/16/17 Isosorbide Mononitrate [Imdur] 60 mg PO DAILY #30 tab 10/16/17 levoFLOXacin tablet [Levaquin 500 mg PO DAILY@0600 #8 tab 11/27/17 tablet] Surgical History: coronary bypass surgery, - - Right femoral bypass surgery, cochlear impants Psychiatric History: No pertinent psych hx 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 Denies: Anorexia, Chills, Fever, Night Sweats, Malaise, Weight Change Eyes: Denies: Blurred vision, Cataracts, Conjunctivae Inflammation, Double vision, Drainage HEENT: Denies: Difficulty Swallowing, Dysphasia, Ear Pain, Eye Pain, Hearing Changes, Nasal bleeding, Nasal Congestion, Post Nasal Drip Cardiovascular: Denies: Chest Pain, Claudication, Chest Pressure, Chest Tightness, Edema, Heaviness, Palpitations Respiratory: Denies: Cough, Hemoptysis, Pleuritic Pain, Shortness of Breath, Shortness of breath at rest, Shortness of breath upon exertion, Sputum production Gastrointestinal: Denies: Abdominal Pain, Constipation, Diarrhea, Hematemesis, Hematochezia, Nausea, Melena, Vomiting Genitourinary: Denies: Dysuria, Frequency, Hematuria, Hesitancy, Urgency Gynecological: Denies: Breast symptoms Musculoskeletal: Denies: Back Pain, Joint Pain, Joint stiffness, Joint swelling , Joint Tenderness Skin: Reports: Wounds - Patient has lymphedema of her lower extremities along with chronic wounds, she is seen by a home nursing service for bandage changes. Denies: Dryness, Jaundice, Pruritis, Rash Neurological: Reports: Balance problems, Incoordination. Denies: Blurred vision , Double vision, Slurred speech, Difficulty swallowing, Focal weakness, Numbness , Tingling Psychiatric: Denies: Anxiety, Depression, Homicidal Ideations, Suicidal Ideations Endocrine: Denies: Change in Body Habitus, Heat/ Cold Intolerance, Polydipsia, Polyuria Hematologic/ Lymphatic: Denies: Adenopathy, Anemia, Easy Bruising, Easy Bleeding , Petechiae, Purpura VTE Information - Inpt Only VTE Present on Admission: No VTE Mechan Device Prophylaxis: None VTE Pharm Prophylaxis ordered?: Yes Patient Problems: Active and Suspected Problems Fall at home (Acute) - Physical Exam General: Alert, Oriented x3, Cooperative, No apparent distress, Well developed, - - Patient is hard of hearing, she is a poor informant HEENT: Atraumatic, PERRLA, EOMI, Normocephalic Oral: Moist Mucosa Neck: Supple, No JVD, Negative Carotid Bruits, No Nuchal Rigidity, Trachea Midline, Thyroid Normal Size and Texture Lungs: Clear to auscultation, Normal air movement, No rhonchi, No wheeze, No rales Cardiovascular: Regular rate, Regular Rhythm, Normal S1, Normal S2, No murmurs, No Ectopic Activity, PMI Normal, No rub noted, No Gallop Abdomen: Bowel Sounds Present, Soft, Non Tender, Non-Distended, No hernias noted Extremities: No clubbing, No cyanosis, Capillary Refill Less than 3 Seconds, Edema - Chronic lymphedematous changes are noted over the lower legs Skin: Ulcer/ Wound - There are chronic wounds of the patient's lower legs involving skin areas on a background of chronic lymphedema Musculoskeletal: No Tenderness to Palpation of Joints or Extremities Neurological: Cranial nerves II-XII grossly intact, Neuro grossly intact, Sensory exam intact to light touch and pain Psych/Mental Status: Appropriate, Flat Affect, - - Patient is a poor informant Vital Signs Temp Pulse Resp BP Pulse Ox 97.7 F L 85 20 H 132/80 H 95 12/27/17 04:40 12/27/17 04:40 12/27/17 04:40 12/27/17 04:40 12/27/17 04:57 Oxygen Delivery Method Room Air Weight: 96.6 kg Body Mass Index (BMI) 32.3 Laboratory Tests Past 24 Hrs 12/27/17 04:05 Urine Color Yellow Urine Clarity Sl Cloudy Urine pH 5.0 Ur Specific [place] 1.015 Urine Protein 30 H Urine Glucose (UA) Normal Urine Ketones Negative Urine Occult Blood 10 H Urine Nitrite Negative Urine Bilirubin Negative Urine Urobilinogen Normal Ur Leukocyte Esterase 500 H Urine RBC 0-5 SEEN Urine WBC 5-10 SEEN Ur Squamous Epith Cells 0-5 SEEN Calcium Oxalate Crystal RARE Urine Bacteria RARE Hyaline Casts 0-5 SEEN Urine Mucus 0 SEEN Urine Yeast RARE Assessment/Plan All Active Problems Fall at home (Acute) Bilateral lower leg cellulitis (Resolved) KIM (acute kidney injury) (Acute) Malaise (Resolved) Fever (Resolved) Non-pressure chronic ulcer of other part of left lower leg limited to breakdown of skin (Resolved) Non-pressure chronic ulcer of other part of right foot limited to breakdown of skin (Resolved) Non-pressure chronic ulcer of other part of left foot limited to breakdown of skin (Resolved) Acute on chronic diastolic heart failure (Resolved) Acute CHF (congestive heart failure) (Resolved) Acute respiratory failure with hypoxia (Resolved) KIM (acute kidney injury) (Ruled-out) Bilateral lower leg cellulitis (Resolved) Diarrhea (Resolved) Cellulitis of right lower extremity (Ruled-out) BRBPR (bright red blood per rectum) (Resolved) C. difficile colitis (Resolved) Hyperkalemia (Resolved) #1 hyperkalemia-etiology unclear, again patient at one time was on spironolactone at home, it is possible that she is taking it inappropriately, she will need supervision with her medications if she chooses to return home rather than go to a correction. Patient was given Kayexalate in the emergency room, she was given an albuterol aerosol, she was given IV insulin and D50. Labs will be rechecked #2 acute on chronic renal failure-patient will be given IV fluids and labs will be rechecked #3 type 2 diabetes #4 chronic lymphedema of the legs-wound care nurse will be consulted, it is unknown what dressing arrangements were made by home nursing services at this time #5 noncompliance with medical regimen-again I feel the patient needs to be placed in a senior living facility #6 pulmonary hypertension #7 anemia of chronic disease #8 self-neglect Code Visit Inpatient E&M: 18931 Init Hosp L3
[2017-12-27] MEDS: Heparin Injection (Vial) 5,000 UNIT/ML VIAL 5000 UNIT SC ×2 (05:22→21:21)
[2017-12-27 07:06] LABS: Bedside Glucose 150 mg/dL (70-110)
[2017-12-27] MEDS: Aspirin 81 MG TAB.CHEW PO (08:19)
[2017-12-27] MEDS: Gabapentin 100 MG Capsule PO ×2 (08:20→17:29)
[2017-12-27] MEDS: Ferrous Gluconate 325 MG Tablet PO (08:20)
[2017-12-27 08:28] LABS: Anion Gap 9 (5-15); BUN 44 mg/dL (7-18); BUN/Creat Ratio 21.2 RATIO (10-20); Calcium,Total 7.8 mg/dL (8.5-10.1); Chloride 123 mmol/L (98-107); Creatinine, Serum 2.08 mg/dL (0.55-1.02); EST Glomerular Filtration Rate 25 mL/min (>60); Est Glom Filt Rate - Afr Amer 31 mL/min (>60); Estimated Creatinine Clearance 26.48 ml/min; Glucose 149 mg/dL (74-106); Potassium 5.3 mmol/L (3.5-5.1); Sodium Level 148 mmol/L (136-145)
[2017-12-27] MEDS: Insulin Lispro 100 UNIT/ML INSULN.PEN 15 UNIT SC ×3 (08:39→17:23)
[2017-12-27] MEDS: Insulin Lispro 100 UNIT/ML INSULN.PEN SC ×3 (08:39→17:23)
[2017-12-27] MEDS: Isosorbide Mononitrate 60 MG Tablet PO (08:40)
[2017-12-27] MEDS: Glucerna Shake 120 ML LIQUID PO ×2 (08:40→17:29)
[2017-12-27] MEDS: Metoprolol Tartrate 100 MG Tablet PO ×2 (08:40→21:22)
[2017-12-27] MEDS: Pantoprazole Sodium 40 MG Tablet PO ×2 (08:41→21:21)
[2017-12-27] MEDS: amLODIPine 5 MG Tablet PO (08:41)
[2017-12-27] MEDS: Clopidogrel Bisulfate 75 MG Tablet PO (08:41)
[2017-12-27 11:42] LABS: Anion Gap 7 (5-15); BUN 43 mg/dL (7-18); BUN/Creat Ratio 21.4 RATIO (10-20); Calcium,Total 7.6 mg/dL (8.5-10.1); Chloride 121 mmol/L (98-107); Creatinine, Serum 2.01 mg/dL (0.55-1.02); EST Glomerular Filtration Rate 26 mL/min (>60); Est Glom Filt Rate - Afr Amer 32 mL/min (>60); Glucose 264 mg/dL (74-106); Potassium 5.7 mmol/L (3.5-5.1); Sodium Level 146 mmol/L (136-145)
[2017-12-27 12:05] LABS: Bedside Glucose 275 mg/dL (70-110)
--- NOTE | 2017-12-27 15:00 | PCM.PN.HOSP ---
Patient Problems: Active and Suspected Problems Fall at home (Acute) Subjective: Patient was seen and examined. No new complaints. Admitted yesterday. Denies chest pain or dizziness or palpitations Objective: Physical Exam General: Alert, Oriented x3, Cooperative, No apparent distress, Well developed, - - Patient is hard of hearing, she is a poor informant HEENT: Atraumatic, PERRLA, EOMI, Normocephalic Oral: Moist Mucosa Neck: Supple, No JVD, Negative Carotid Bruits, No Nuchal Rigidity, Trachea Midline, Thyroid Normal Size and Texture Lungs: Clear to auscultation, Normal air movement, No rhonchi, No wheeze, No rales Cardiovascular: Regular rate, Regular Rhythm, Normal S1, Normal S2, No murmurs, No Ectopic Activity, PMI Normal, No rub noted, No Gallop Abdomen: Bowel Sounds Present, Soft, Non Tender, Non-Distended, No hernias noted Extremities: No clubbing, No cyanosis, Capillary Refill Less than 3 Seconds, Edema - Chronic lymphedematous changes are noted over the lower legs Skin: Ulcer/ Wound - There are chronic wounds of the patient's lower legs involving skin areas on a background of chronic lymphedema Musculoskeletal: No Tenderness to Palpation of Joints or Extremities Neurological: Cranial nerves II-XII grossly intact, Neuro grossly intact, Sensory exam intact to light touch and pain Psych/Mental Status: Appropriate, Flat Affect, - - Patient is a poor informant Vitals/I&O's: Vital Signs Temp Pulse Resp BP Pulse Ox 98.2 F 75 18 108/42 L 99 12/27/17 13:45 12/27/17 13:45 12/27/17 13:45 12/27/17 13:45 12/27/17 13:45 Oxygen Delivery Method Room Air Weight: 96.6 kg Body Mass Index (BMI) 32.3 Intake and Output for Last 24 Hours 12/25/17 12/26/17 12/27/17 23:59 23:59 23:59 Intake Total 2100 / 2100 Output Total 600 / 600 Balance 1500 / 1500 Laboratory Results 12/27/17 04:05: Urine Color Yellow, Urine Clarity Sl Cloudy, Urine pH 5.0, Ur Specific [place] 1.015, Urine Protein 30 H, Urine Glucose (UA) Normal, Urine Ketones Negative, Urine Occult Blood 10 H, Urine Nitrite Negative, Urine Bilirubin Negative, Urine Urobilinogen Normal, Ur Leukocyte Esterase 500 H, Urine RBC 0-5 SEEN, Urine WBC 5-10 SEEN, Ur Squamous Epith Cells 0-5 SEEN, Calcium Oxalate Crystal RARE, Urine Bacteria RARE, Hyaline Casts 0-5 SEEN, Urine Mucus 0 SEEN, Urine Yeast RARE 12/27/17 06:55: POC Glucose 150 H 12/27/17 07:58: Sodium 148 H, Potassium 5.3 H, Chloride 123 H, Carbon Dioxide 16.0 L, Anion Gap 9, BUN 44 H, Creatinine 2.08 H, Estim Creat Clear Calc 26.48, Est GFR (MDRD) Af Amer 31 L, Est GFR (MDRD) Non-Af 25 L, BUN/Creatinine Ratio 21.2 H, Glucose 149 H, Calcium 7.8 L 12/27/17 11:10: Sodium 146 H, Potassium 5.7 H, Chloride 121 H, Carbon Dioxide 18.0 L, Anion Gap 7, BUN 43 H, Creatinine 2.01 H, Estim Creat Clear Calc 27.40, Est GFR (MDRD) Af Amer 32 L, Est GFR (MDRD) Non-Af 26 L, BUN/Creatinine Ratio 21.4 H, Glucose 264 H, Calcium 7.6 L 12/27/17 12:02: POC Glucose 275 H Current Medications Amlodipine Besylate (Norvasc) 5 mg PO DAILY [facility] Last Admin: 12/27/17 08:41 Dose: 5 mg Aspirin (Aspirin, Baby) 81 mg PO DAILY@0800 [facility] Last Admin: 12/27/17 08:19 Dose: 81 mg Clopidogrel Bisulfate (Plavix) 75 mg PO DAILY [facility] Last Admin: 12/27/17 08:41 Dose: 75 mg Ferrous Gluconate (Ferrous Gluconate) 325 mg PO DAILY@0800 [facility] Last Admin: 12/27/17 08:20 Dose: 325 mg Gabapentin (Neurontin) 100 mg PO BIDCM [facility] Last Admin: 12/27/17 08:20 Dose: 100 mg Heparin Sodium (Porcine) (Heparin Na) 5,000 unit SC Q8 [facility] Last Admin: 12/27/17 14:19 Dose: Not Given Sodium Chloride () 1,000 mls @ 150 mls/hr IV .[id number] [facility] Last Admin: 12/27/17 12:30 Dose: 150 mls/hr Insulin Glargine (Lantus (Bkc)) 40 units SC QHS [facility] Insulin Human Lispro (Humalog Kwikpen (Bkc)) 15 unit SC TIDAC [facility] Last Admin: 12/27/17 12:26 Dose: 15 u Insulin Human Lispro (Humalog Kwikpen (Bkc)) 0 unit SC ACHS [facility] PRN Reason: Protocol Last Admin: 12/27/17 12:26 Dose: 6 u Isosorbide Mononitrate (Imdur) 60 mg PO DAILY [facility] Last Admin: 12/27/17 08:40 Dose: 60 mg Metoprolol Tartrate (Lopressor (Beta Richard)) 100 mg PO BID [facility] Last Admin: 12/27/17 08:40 Dose: 100 mg Nutritional Formula (Lactose Free) (Glucerna Shake) 120 ml PO TIDCM [facility] Last Admin: 12/27/17 13:01 Dose: Not Given Pantoprazole Sodium (Protonix) 40 mg PO BID [facility] Last Admin: 12/27/17 08:41 Dose: 40 mg Rosuvastatin Calcium (Crestor) 2.5 mg PO QHS [facility] Sodium Chloride () 5 - 30 ml IV UD PRN PRN Reason: SALINE FLUSH Medical Necessity - Tobacco Use Smoking Status: Never smoker Tobacco Use: Non-smoker Assessment/Plan All Active Problems Fall at home (Acute) Bilateral lower leg cellulitis (Resolved) KIM (acute kidney injury) (Acute) Malaise (Resolved) Fever (Resolved) Non-pressure chronic ulcer of other part of left lower leg limited to breakdown of skin (Resolved) Non-pressure chronic ulcer of other part of right foot limited to breakdown of skin (Resolved) Non-pressure chronic ulcer of other part of left foot limited to breakdown of skin (Resolved) Acute on chronic diastolic heart failure (Resolved) Acute CHF (congestive heart failure) (Resolved) Acute respiratory failure with hypoxia (Resolved) KIM (acute kidney injury) (Ruled-out) Bilateral lower leg cellulitis (Resolved) Diarrhea (Resolved) Cellulitis of right lower extremity (Ruled-out) BRBPR (bright red blood per rectum) (Resolved) C. difficile colitis (Resolved) Hyperkalemia (Resolved) 1. Hyperkalemia, etiology unclear, s/p kayexalate, will repeat kayexalate, repeat BMP in am 2.KIM on CKD, slightly improved, will continue on IVF, repeat labs in am 3. Type 2 DM, continue on home meds 4. Cellulitis of bilateral legs , chronic lymphedema of the legs with acute on chronic wounds, will continue with wound care, IV cefazolin, wound nurse consulted 5 Noncompliance with medical regimen, self neglect, needs SNF, will see based on PT/OT recommendations 6. Pulmonary hypertension 8. anemia of chronic disease 9. DVT PPx- Heparin SC Code Visit Inpatient E&M: 76107 Subs Hosp L3
[2017-12-27] MEDS: Sodium Polystyrene Sulfonate 15 GM/60 ML UDC 30 GM PO (15:39)
[2017-12-27 16:20] LABS: Bedside Glucose 157 mg/dL (70-110)
[2017-12-27] MEDS: 0.9% Normal Saline 1,000 ML 75 ML IV ×2 (17:24→23:56)
[2017-12-27] MEDS: Rosuvastatin Calcium 5 MG Tablet 2.5 MG PO (21:21)
[2017-12-27 21:31] LABS: Bedside Glucose 99 mg/dL (70-110)
[2017-12-28] VITALS (12 sets, daily range): BP systolic 132–145; BP diastolic 48–62; PULSE 69–80; RESP 18; TEMP 36.5–36.7; O2SAT 93–98
[2017-12-28] MEDS: 0.9% NaCl Peripheral Flush Adult/Peds IV (03:55)
[2017-12-28] MEDS: Heparin Injection (Vial) 5,000 UNIT/ML VIAL 5000 UNIT SC ×3 (06:42→21:39)
[2017-12-28 07:10] LABS: Bedside Glucose 83 mg/dL (70-110)
[2017-12-28 07:10] LABS: Bedside Glucose 57 mg/dL (70-110)
[2017-12-28 07:28] LABS: Absolute Lymphocyte Count 0.99 X10^3/ul (0.83-4.51); Absolute Neutrophil Count 4.9 X10^3/uL (2.0-7.7); Basophil# 0.02 X10^3/uL; Basophil% 0.3 % (0-1); Eosinophil# 0.29 X10^3/uL; Eosinophils% 4.6 % (0-5); Hematocrit 29.5 % (37-47); Lymphocyte # 0.99 X10^3/ul (4.0); Lymphocyte % 15.6 % (19-41); Mean Corp Hgb Conc 30.5 g/gl (32-36); Mean Corpuscular Hgb 28.9 pg (27.0-32.0); Mean Corpuscular Volume 94.9 fL (81-99); Mean Platelet Vol. 9.3 fl (6.2-12.0); Monocyte% 1.6 % (0-10); Neutrophil # 4.94 X10^3/uL (2.7-7.7); Neutrophil % 77.6 % (47-70); Platelet Count 89 K/mm3 (150-450); RBC Distribution Width CV 16.3 % (11.6-14.6); RBC Distribution Width SD 55.9 fl (35.1-43.9); Red Blood Count 3.11 M/mm3 (4.2-5.4); White Blood Count 6.4 K/mm3 (4.4-11.0)
[2017-12-28 07:30] LABS: POSITIVE COUNT NO; POSITIVE DIFFERENTIAL NO; POSITIVE MORPHOLOGY NO
[2017-12-28 08:14] LABS: Anion Gap 7 (5-15); BUN 36 mg/dL (7-18); BUN/Creat Ratio 22.9 RATIO (10-20); Calcium,Total 7.8 mg/dL (8.5-10.1); Chloride 123 mmol/L (98-107); Creatinine, Serum 1.57 mg/dL (0.55-1.02); EST Glomerular Filtration Rate 35 mL/min (>60); Est Glom Filt Rate - Afr Amer 42 mL/min (>60); Estimated Creatinine Clearance 35.08 ml/min; Glucose 105 mg/dL (74-106); Potassium 4.7 mmol/L (3.5-5.1); Sodium Level 147 mmol/L (136-145)
[2017-12-28] MEDS: Aspirin 81 MG TAB.CHEW PO (08:58)
[2017-12-28] MEDS: Ferrous Gluconate 325 MG Tablet PO (08:58)
[2017-12-28] MEDS: 0.9% Normal Saline 1,000 ML 75 ML IV (08:59)
[2017-12-28] MEDS: Glucerna Shake 120 ML LIQUID PO ×3 (08:59→17:14)
[2017-12-28] MEDS: Gabapentin 100 MG Capsule PO ×2 (08:59→17:13)
[2017-12-28] MEDS: Metoprolol Tartrate 100 MG Tablet PO ×2 (09:03→21:39)
[2017-12-28] MEDS: Pantoprazole Sodium 40 MG Tablet PO ×2 (09:03→21:40)
[2017-12-28] MEDS: Isosorbide Mononitrate 60 MG Tablet PO (09:03)
[2017-12-28] MEDS: amLODIPine 5 MG Tablet PO (09:03)
[2017-12-28] MEDS: Clopidogrel Bisulfate 75 MG Tablet PO (09:03)
[2017-12-28 11:15] LABS: Bedside Glucose 224 mg/dL (70-110)
--- NOTE | 2017-12-28 11:44 | CASEMGMT ---
SW spoke with patient as she is in agreement with going to a SNF. Patient said she would go to [facility] or [facility]. Milady HARVEY
[2017-12-28] MEDS: Insulin Lispro 100 UNIT/ML INSULN.PEN SC ×3 (12:41→21:40)
[2017-12-28] MEDS: Insulin Lispro 100 UNIT/ML INSULN.PEN 15 UNIT SC ×2 (12:41→17:13)
--- NOTE | 2017-12-28 12:57 | NURSING ---
wound photo: legs
--- NOTE | 2017-12-28 13:19 | CM.ED ---
Addendum entered by Yvrose Ch 12/28/17 13:23: Genaro Hampton - [phone] Original Note: Social Work Note VM from Genaro Hampton with [employer] requesting a return phone call regarding a pt that they brought in on Thursday. States that the pt has mental health concerns and is cared for by her brother who also has a mental health history. Claims that the living conditions are deplorable and that the pt has open wounds that are not being cared for. He is also concerned for the safety of his crew d/t the conditions of this home. SW placed return phone call and left vm. Will await a return phone call to ensure that the pt is in a safe environment and case management is working on a safe discharge home. Yvrose Ch, OCEANOGRAPHER PHYSICAL, CHECKER IN
--- NOTE | 2017-12-28 13:55 | CASEMGMT ---
Referral was faxed to [facility]. Spoke with Vicky and she said they are verifying her benefits and they should be able to take her. We will need to await pre-cert. Plan: Likely [facility] pending pre-cert. Milady KELLY MSW
--- NOTE | 2017-12-28 14:56 | CASEMGMT ---
Spoke with Vicky at [facility] and they can take patient. She said she will start the pre-cert. Plan: [facility] pending insurance approval. Milady HARVEY
--- NOTE | 2017-12-28 16:19 | PCM.PN.HOSP ---
Patient Problems: Active and Suspected Problems Fall at home (Acute) Vitals/I&O's: Vital Signs Temp Pulse Resp BP Pulse Ox 97.8 F 69 18 138/62 H 97 12/28/17 15:10 12/28/17 15:10 12/28/17 15:10 12/28/17 15:10 12/28/17 15:10 Oxygen Delivery Method Room Air Weight: 96.6 kg Body Mass Index (BMI) 32.3 Intake and Output for Last 24 Hours 12/26/17 12/27/17 12/28/17 23:59 23:59 23:59 Intake Total 2745 / 2745 2021 Output Total 840 / 840 1050 / 1050 Balance 1905 / 1905 972 / 972 Laboratory Results 12/27/17 16:17: POC Glucose 157 H 12/27/17 21:19: POC Glucose 99 12/28/17 06:44: POC Glucose 57 L 12/28/17 07:04: POC Glucose 83 12/28/17 07:18: WBC 6.4, RBC 3.11 L, Hgb 9.0 L, Hct 29.5 L, MCV 94.9, MCH 28.9, MCHC 30.5 L, RDW 16.3 H, RDW Differential 55.9 H, Plt Count 89 L, MPV 9.3, Immature Gran % (Auto) 0.300, Neut % (Auto) 77.6 H, Lymph % (Auto) 15.6 L, [place] % (Auto) 1.6, Eos % (Auto) 4.6, Baso % (Auto) 0.3, Absolute Neuts (auto) 4.9, Absolute Lymphs (auto) 0.99, Total Counted Not Reportable 12/28/17 07:18: Sodium 147 H, Potassium 4.7, Chloride 123 H, Carbon Dioxide 17.0 L, Anion Gap 7, BUN 36 H, Creatinine 1.57 H, Estim Creat Clear Calc 35.08, Est GFR (MDRD) Af Amer 42 L, Est GFR (MDRD) Non-Af 35 L, BUN/Creatinine Ratio 22.9 H, Glucose 105, Calcium 7.8 L 12/28/17 11:11: POC Glucose 224 H Current Medications Amlodipine Besylate (Norvasc) 5 mg PO DAILY [facility] Last Admin: 12/28/17 09:03 Dose: 5 mg Aspirin (Aspirin, Baby) 81 mg PO DAILY@0800 [facility] Last Admin: 12/28/17 08:58 Dose: 81 mg Clopidogrel Bisulfate (Plavix) 75 mg PO DAILY [facility] Last Admin: 12/28/17 09:03 Dose: 75 mg Ferrous Gluconate (Ferrous Gluconate) 325 mg PO DAILY@0800 [facility] Last Admin: 12/28/17 08:58 Dose: 325 mg [facility] Admin: 12/28/17 08:59 Dose: 100 mg Heparin Sodium (Porcine) (Heparin Na) 5,000 unit SC Q8 [facility] Last Admin: 12/28/17 13:18 Dose: 5,000 u Sodium Chloride () 1,000 mls @ 75 mls/hr IV .[id number] [facility] Last Admin: 12/28/17 08:59 Dose: 75 mls/hr Insulin Glargine (Lantus (Bkc)) 40 units SC QHS [facility] Last Admin: 12/27/17 21:24 Dose: 40 u Insulin Human Lispro (Humalog Kwikpen (Bkc)) 15 unit SC TIDAC [facility] Last Admin: 12/28/17 12:41 Dose: 15 u Insulin Human Lispro (Humalog Kwikpen (Bkc)) 0 unit SC ACHS [facility] PRN Reason: Protocol Last Admin: 12/28/17 12:41 Dose: 4 u Isosorbide Mononitrate (Imdur) 60 mg PO DAILY [facility] Last Admin: 12/28/17 09:03 Dose: 60 mg Metoprolol Tartrate (Lopressor (Beta Richard)) 100 mg PO BID [facility] Last Admin: 12/28/17 09:03 Dose: 100 mg Nutritional Formula (Lactose Free) (Glucerna Shake) 120 ml PO TIDCM [facility] Last Admin: 12/28/17 12:41 Dose: 120 ml Pantoprazole Sodium (Protonix) 40 mg PO BID [facility] Last Admin: 12/28/17 09:03 Dose: 40 mg Rosuvastatin Calcium (Crestor) 2.5 mg PO QHS [facility] Last Admin: 12/27/17 21:21 Dose: 2.5 mg Sodium Chloride () 5 - 30 ml IV UD PRN PRN Reason: SALINE FLUSH Last Admin: 12/28/17 03:55 Dose: 10 ml Medical Necessity - Tobacco Use Smoking Status: Never smoker Tobacco Use: Non-smoker Assessment/Plan All Active Problems Fall at home (Acute) Bilateral lower leg cellulitis (Resolved) KIM (acute kidney injury) (Acute) Malaise (Resolved) Fever (Resolved) Non-pressure chronic ulcer of other part of left lower leg limited to breakdown of skin (Resolved) Non-pressure chronic ulcer of other part of right foot limited to breakdown of skin (Resolved) Non-pressure chronic ulcer of other part of left foot limited to breakdown of skin (Resolved) Acute on chronic diastolic heart failure (Resolved) Acute CHF (congestive heart failure) (Resolved) Acute respiratory failure with hypoxia (Resolved) KIM (acute kidney injury) (Ruled-out) Bilateral lower leg cellulitis (Resolved) Diarrhea (Resolved) Cellulitis of right lower extremity (Ruled-out) BRBPR (bright red blood per rectum) (Resolved) C. difficile colitis (Resolved) Hyperkalemia (Resolved) 1. Hyperkalemia, etiology unclear, s/p kayexalate, resolved 2. Hypernatremia, will switch to D51/2NS, labs in am 3. KIM on CKD, improving with IV fluids, labs in am 4. Type 2 DM, sugars are controlled, continue with current home regimen 4. Cellulitis of bilateral legs, chronic lymphedema of the legs with acute on chronic wounds, will continue with wound care 5 Noncompliance with medical regimen, self neglect, needs SNF, discussed with care managers 6. Pulmonary hypertension 7. anemia of chronic disease 8. DVT PPx- Heparin SC Code Visit Inpatient E&M: 17072 Subs Hosp L2
[2017-12-28 17:00] LABS: Bedside Glucose 190 mg/dL (70-110)
[2017-12-28] MEDS: Dext 5%-0.45% NS 1,000 ML 75 ML IV (17:13)
[2017-12-28] MEDS: Rosuvastatin Calcium 5 MG Tablet 2.5 MG PO (21:39)
[2017-12-28 21:55] LABS: Bedside Glucose 215 mg/dL (70-110)
[2017-12-29] VITALS (14 sets, daily range): BP systolic 129–151; BP diastolic 45–61; PULSE 71–81; RESP 12–18; TEMP 36.5–37.2; O2SAT 92–98
[2017-12-29] MEDS: Dext 5%-0.45% NS 1,000 ML 75 ML IV (05:27)
[2017-12-29] MEDS: Heparin Injection (Vial) 5,000 UNIT/ML VIAL 5000 UNIT SC ×3 (05:31→22:05)
[2017-12-29 07:05] LABS: Bedside Glucose 164 mg/dL (70-110)
[2017-12-29] MEDS: Insulin Lispro 100 UNIT/ML INSULN.PEN 15 UNIT SC ×3 (08:18→17:13)
[2017-12-29] MEDS: Insulin Lispro 100 UNIT/ML INSULN.PEN SC ×4 (08:18→22:06)
[2017-12-29] MEDS: Glucerna Shake 120 ML LIQUID PO ×2 (08:20→16:13)
[2017-12-29] MEDS: Aspirin 81 MG TAB.CHEW PO (08:20)
[2017-12-29] MEDS: Ferrous Gluconate 325 MG Tablet PO (08:20)
[2017-12-29] MEDS: Gabapentin 100 MG Capsule PO ×2 (08:20→16:10)
[2017-12-29] MEDS: Pantoprazole Sodium 40 MG Tablet PO ×2 (08:22→22:05)
[2017-12-29] MEDS: Clopidogrel Bisulfate 75 MG Tablet PO (08:22)
[2017-12-29] MEDS: amLODIPine 5 MG Tablet PO (08:22)
[2017-12-29] MEDS: Isosorbide Mononitrate 60 MG Tablet PO (08:23)
[2017-12-29] MEDS: Metoprolol Tartrate 100 MG Tablet PO ×2 (08:23→22:08)
[2017-12-29 09:22] LABS: Anion Gap 7 (5-15); BUN 28 mg/dL (7-18); BUN/Creat Ratio 22.4 RATIO (10-20); Calcium,Total 7.8 mg/dL (8.5-10.1); Chloride 120 mmol/L (98-107); Creatinine, Serum 1.25 mg/dL (0.55-1.02); EST Glomerular Filtration Rate 45 mL/min (>60); Est Glom Filt Rate - Afr Amer 55 mL/min (>60); Estimated Creatinine Clearance 44.06 ml/min; Glucose 171 mg/dL (74-106); Potassium 4.6 mmol/L (3.5-5.1); Sodium Level 146 mmol/L (136-145)
--- NOTE | 2017-12-29 10:07 | CM.ED ---
Addendum entered by Yvrose Ch 12/29/17 10:41: Social Work Note Placed call to Dr. Field' office at [facility]. Spoke with ALONSO Corona. Cj confirms that the pt is established with Dr. Field and was last seen on 12/19/17. Updated Cj to EMS report provided to SW and requested that Dr. Field consider completing a form of expert evaluation if she felt appropriate. Per Cj she is sending the physician an urgent message and will notify SW when she hears back. SW to continue to follow and assist. WES Rico, COMMUNITY LIAISON Original Note: Social Work Note Call back from Sami Hampton with [employer]. Introduced self and role at [facility]. Per Sami they have made multiples transports from this pt's home to the hospital. States that she lives with her brother and things have gotten worse. Reports that she was getting wound care at the [facility], but he does not believe that this is occurring any longer. Reports that it is a hoarding situation and appears that the pt and her brother are confined to the living room. The pt is unable to get up from the chair or couch and relies on her brother to bring her food/water which he was not and states that she was very dehydrated. Claims that they set down the cot on the ground to transport the pt and when they raised it bugs (bed bugs/cockroaches) scattered. States that there were liquid feces on the back of the furniture. Concerned for the safety of the pt and her brother as well as his staff. Reports that he has made multiple APS reports and feels that they are not getting anywhere. Encourage Sami to make another report regarding this circumstance, and also that this SW will make a report and see what needs to be initiated for guardianship to be established. Update Angeles BARTLETT, on assigned unit. Yvrose Ch, CLINICAL ACCOUNT EXECUTIVE, COMMUNITY LIAISON
--- NOTE | 2017-12-29 10:44 | RAD_ITS ---
STUDY: X-RAY CHEST REASON FOR EXAM: Female, 67 years old. Shortness of breath. TECHNIQUE: Single AP portable view of the chest. COMPARISON: Comparison is made with prior study dated October 29, 2017. FINDINGS: EKG electrodes are seen. There is evidence of vascular congestion and mild degree of CHF. There is no demonstrated pleural abnormality. Sternal cerclage wires and vascular clips are present from a prior sternotomy and coronary artery bypass graft procedure (CABG). Normal mediastinum and kel. Normal visualized pulmonary arteries. There is atherosclerotic calcification of the aortic arch with tortuosity. There are diffuse degenerative changes of the visualized thoracic spine. Normal visualized ribs, clavicles, and shoulders. There is no demonstrated abnormality of the visualized soft tissue structures of the upper abdomen. RAD/Chest 1 View (Portable) IMPRESSION: Vascular congestion and a mild degree of CHF. Electronically Signed: Rik Morfin MD at 12:58 EDT Tel [phone], Service support ,
--- NOTE | 2017-12-29 11:23 | CASEMGMT ---
Rec'd phone call from Vicky at [facility]. [facility] rec'd authorization for pt to go to facility, today or tomorrow (12/30) would be fine. TRI updated of same.
[2017-12-29 11:55] LABS: Bedside Glucose 176 mg/dL (70-110)
--- NOTE | 2017-12-29 14:52 | PCM.PN.HOSP ---
Patient Problems: Active and Suspected Problems Fall at home (Acute) Subjective: Patient seen and examined. No new complains. Denies chest pain, dizziness, fever, chills. Objective: Physical Exam General: Alert, Oriented x3, Cooperative, No apparent distress, Well developed, - - Patient is hard of hearing, she is a poor informant HEENT: Atraumatic, PERRLA, EOMI, Normocephalic Oral: Moist Mucosa Neck: Supple, No JVD, Negative Carotid Bruits, No Nuchal Rigidity, Trachea Midline, Thyroid Normal Size and Texture Lungs: Clear to auscultation, Normal air movement, No rhonchi, No wheeze, No rales Cardiovascular: Regular rate, Regular Rhythm, Normal S1, Normal S2, No murmurs, No Ectopic Activity, PMI Normal, No rub noted, No Gallop Abdomen: Bowel Sounds Present, Soft, Non Tender, Non-Distended, No hernias noted Extremities: No clubbing, No cyanosis, Capillary Refill Less than 3 Seconds, Edema - Chronic lymphedematous changes are noted over the lower legs Skin: Ulcer/ Wound - There are chronic wounds of the patient's lower legs involving skin areas on a background of chronic lymphedema Musculoskeletal: No Tenderness to Palpation of Joints or Extremities Neurological: Cranial nerves II-XII grossly intact, Neuro grossly intact, Sensory exam intact to light touch and pain Psych/Mental Status: Appropriate, Flat Affect, - - Patient is a poor informant Vitals/I&O's: Vitals/I&O's: Vital Signs Temp Pulse Resp BP Pulse Ox 99.0 F 74 16 142/58 H 92 12/29/17 08:25 12/29/17 11:00 12/29/17 08:25 12/29/17 08:25 12/29/17 11:05 Oxygen Flow Rate (L/min) 3 Oxygen Delivery Method Nasal Cannula Weight: 96.6 kg Body Mass Index (BMI) 32.3 Intake and Output for Last 24 Hours 12/27/17 12/28/17 12/29/17 23:59 23:59 23:59 Intake Total 2745 / 2745 2947 / 2947 1106 / 1106 Output Total 840 / 840 1050 / 1050 Balance 1905 / 1905 1897 / 1897 1106 / 1106 Laboratory Results 12/28/17 16:47: POC Glucose 190 H 12/28/17 21:20: POC Glucose 215 H 12/29/17 06:46: POC Glucose 164 H 12/29/17 08:00: Sodium 146 H, Potassium 4.6, Chloride 120 H, Carbon Dioxide 19.0 L, Anion Gap 7, BUN 28 H, Creatinine 1.25 H, Estim Creat Clear Calc 44.06, Est GFR (MDRD) Af Amer 55 L, Est GFR (MDRD) Non-Af 45 L, BUN/Creatinine Ratio 22.4 H, Glucose 171 H, Calcium 7.8 L 12/29/17 11:52: POC Glucose 176 H Current Medications Amlodipine Besylate (Norvasc) 5 mg PO DAILY [facility] Last Admin: 12/29/17 08:22 Dose: 5 mg Aspirin (Aspirin, Baby) 81 mg PO DAILY@0800 [facility] Last Admin: 12/29/17 08:20 Dose: 81 mg Clopidogrel Bisulfate (Plavix) 75 mg PO DAILY [facility] Last Admin: 12/29/17 08:22 Dose: 75 mg Ferrous Gluconate (Ferrous Gluconate) 325 mg PO DAILY@0800 [facility] Last Admin: 12/29/17 08:20 Dose: 325 mg [facility] Last Admin: 12/29/17 08:20 Dose: 100 mg Heparin Sodium (Porcine) (Heparin Na) 5,000 unit SC Q8 [facility] Last Admin: 12/29/17 14:09 Dose: 5,000 u Insulin Glargine (Lantus (Bkc)) 40 units SC QHS [facility] Last Admin: 12/28/17 21:41 Dose: 40 u Insulin Human Lispro (Humalog Kwikpen (Bkc)) 15 unit SC TIDAC [facility] Last Admin: 12/29/17 12:40 Dose: 15 u Insulin Human Lispro (Humalog Kwikpen (Bkc)) 0 unit SC ACHS [facility] PRN Reason: Protocol Last Admin: 12/29/17 12:41 Dose: 2 u Isosorbide Mononitrate (Imdur) 60 mg PO DAILY [facility] Last Admin: 12/29/17 08:23 Dose: 60 mg Metoprolol Tartrate (Lopressor (Beta Richard)) 100 mg PO BID [facility] Last Admin: 12/29/17 08:23 Dose: 100 mg Nutritional Formula (Lactose Free) (Glucerna Shake) 120 ml PO TIDCM [facility] Last Admin: 12/29/17 11:52 Dose: Not Given Pantoprazole Sodium (Protonix) 40 mg PO BID [facility] Last Admin: 12/29/17 08:22 Dose: 40 mg Rosuvastatin Calcium (Crestor) 2.5 mg PO QHS [facility] Last Admin: 12/28/17 21:39 Dose: 2.5 mg Sodium Chloride () 5 - 30 ml IV UD PRN PRN Reason: SALINE FLUSH Last Admin: 12/28/17 03:55 Dose: 10 ml Medical Necessity - Tobacco Use Smoking Status: Never smoker Tobacco Use: Non-smoker Assessment/Plan All Active Problems Fall at home (Acute) Bilateral lower leg cellulitis (Resolved) KIM (acute kidney injury) (Acute) Malaise (Resolved) Fever (Resolved) Non-pressure chronic ulcer of other part of left lower leg limited to breakdown of skin (Resolved) Non-pressure chronic ulcer of other part of right foot limited to breakdown of skin (Resolved) Non-pressure chronic ulcer of other part of left foot limited to breakdown of skin (Resolved) Acute on chronic diastolic heart failure (Resolved) Acute CHF (congestive heart failure) (Resolved) Acute respiratory failure with hypoxia (Resolved) IKM (acute kidney injury) (Ruled-out) Bilateral lower leg cellulitis (Resolved) Diarrhea (Resolved) Cellulitis of right lower extremity (Ruled-out) BRBPR (bright red blood per rectum) (Resolved) C. difficile colitis (Resolved) Hyperkalemia (Resolved) 1. Hyperkalemia, etiology unclear, s/p kayexalate, resolved 2. Hypernatremia, mildly improved, will monitor with labs in am. 3. KIM on CKD, improving with IV fluids, labs in am 4. Type 2 DM, sugars are controlled, continue with current home regimen 4. Cellulitis of bilateral legs, chronic lymphedema of the legs with acute on chronic wounds, will continue with wound care 5 Noncompliance with medical regimen, self neglect, needs SNF, discussed with care managers 6. Pulmonary hypertension 7. anemia of chronic disease 8. DVT PPx- Heparin SC 9. Disposition: DC to SNF Code Visit Inpatient E&M: 88622 Subs Hosp L2
--- NOTE | 2017-12-29 14:56 | PN_ITS ---
Patient Problems: Active and Suspected Problems Fall at home (Acute) Subjective: Patient seen and examined. No new complains. Denies chest pain, dizziness, fever , chills. Objective: Physical Exam General: Alert, Oriented x3, Cooperative, No apparent distress, Well developed, - - Patient is hard of hearing, she is a poor informant HEENT: Atraumatic, PERRLA, EOMI, Normocephalic Oral: Moist Mucosa Neck: Supple, No JVD, Negative Carotid Bruits, No Nuchal Rigidity, Trachea Midline, Thyroid Normal Size and Texture Lungs: Clear to auscultation, Normal air movement, No rhonchi, No wheeze, No rales Cardiovascular: Regular rate, Regular Rhythm, Normal S1, Normal S2, No murmurs, No Ectopic Activity, PMI Normal, No rub noted, No Gallop Abdomen: Bowel Sounds Present, Soft, Non Tender, Non-Distended, No hernias noted Extremities: No clubbing, No cyanosis, Capillary Refill Less than 3 Seconds, Edema - Chronic lymphedematous changes are noted over the lower legs Skin: Ulcer/ Wound - There are chronic wounds of the patient's lower legs involving skin areas on a background of chronic lymphedema Musculoskeletal: No Tenderness to Palpation of Joints or Extremities Neurological: Cranial nerves II-XII grossly intact, Neuro grossly intact, Sensory exam intact to light touch and pain Psych/Mental Status: Appropriate, Flat Affect, - - Patient is a poor informant Vitals/I&O's: Vitals/I&O's: Vital Signs Temp Pulse Resp BP Pulse Ox 99.0 F 74 16 142/58 H 92 12/29/17 08:25 12/29/17 11:00 12/29/17 08:25 12/29/17 08:25 12/29/17 11:05 Oxygen Flow Rate (L/min) 3 Oxygen Delivery Method Nasal Cannula Weight: 96.6 kg Body Mass Index (BMI) 32.3 Intake and Output for Last 24 Hours 12/27/17 12/28/17 12/29/17 23:59 23:59 23:59 Intake Total 2745 / 2745 2947 / 2947 1106 / 1106 Output Total 840 / 840 1050 / 1050 Balance 1905 / 1905 1897 / 1897 1106 / 1106 Laboratory Results 12/28/17 16:47: POC Glucose 190 H 12/28/17 21:20: POC Glucose 215 H 12/29/17 06:46: POC Glucose 164 H 12/29/17 08:00: Sodium 146 H, Potassium 4.6, Chloride 120 H, Carbon Dioxide 19.0 L, Anion Gap 7, BUN 28 H, Creatinine 1.25 H, Estim Creat Clear Calc 44.06, Est GFR (MDRD) Af Amer 55 L, Est GFR (MDRD) Non-Af 45 L, BUN/Creatinine Ratio 22.4 H, Glucose 171 H, Calcium 7.8 L 12/29/17 11:52: POC Glucose 176 H Current Medications Amlodipine Besylate (Norvasc) 5 mg PO DAILY [facility] Last Admin: 12/29/17 08:22 Dose: 5 mg Aspirin (Aspirin, Baby) 81 mg PO DAILY@0800 [facility] Last Admin: 12/29/17 08:20 Dose: 81 mg Clopidogrel Bisulfate (Plavix) 75 mg PO DAILY [facility] Last Admin: 12/29/17 08:22 Dose: 75 mg Ferrous Gluconate (Ferrous Gluconate) 325 mg PO DAILY@0800 [facility] Last Admin: 12/29/17 08:20 Dose: 325 mg [facility]) [facility] Last Admin: 12/29/17 08:20 Dose: 100 mg Heparin Sodium (Porcine) (Heparin Na) 5,000 unit SC Q8 [facility] Last Admin: 12/29/17 14:09 Dose: 5,000 u Insulin Glargine (Lantus (Bkc)) 40 units SC QHS [facility] Last Admin: 12/28/17 21:41 Dose: 40 u Insulin Human Lispro (Humalog Kwikpen (Bkc)) 15 unit SC TIDAC [facility] Last Admin: 12/29/17 12:40 Dose: 15 u Insulin Human Lispro (Humalog Kwikpen (Bkc)) 0 unit SC ACHS [facility] PRN Reason: Protocol Last Admin: 12/29/17 12:41 Dose: 2 u Isosorbide Mononitrate (Imdur) 60 mg PO DAILY [facility] Last Admin: 12/29/17 08:23 Dose: 60 mg Metoprolol Tartrate (Lopressor (Beta Richard)) 100 mg PO BID [facility] Last Admin: 12/29/17 08:23 Dose: 100 mg Nutritional Formula (Lactose Free) (Glucerna Shake) 120 ml PO TIDCM [facility] Last Admin: 12/29/17 11:52 Dose: Not Given Pantoprazole Sodium (Protonix) 40 mg PO BID [facility] Last Admin: 12/29/17 08:22 Dose: 40 mg Rosuvastatin Calcium (Crestor) 2.5 mg PO QHS [facility] Last Admin: 12/28/17 21:39 Dose: 2.5 mg Sodium Chloride () 5 - 30 ml IV UD PRN PRN Reason: SALINE FLUSH Last Admin: 12/28/17 03:55 Dose: 10 ml Medical Necessity - Tobacco Use Smoking Status: Never smoker Tobacco Use: Non-smoker Assessment/Plan All Active Problems Fall at home (Acute) Bilateral lower leg cellulitis (Resolved) KIM (acute kidney injury) (Acute) Malaise (Resolved) Fever (Resolved) Non-pressure chronic ulcer of other part of left lower leg limited to breakdown of skin (Resolved) Non-pressure chronic ulcer of other part of right foot limited to breakdown of skin (Resolved) Non-pressure chronic ulcer of other part of left foot limited to breakdown of skin (Resolved) Acute on chronic diastolic heart failure (Resolved) Acute CHF (congestive heart failure) (Resolved) Acute respiratory failure with hypoxia (Resolved) KIM (acute kidney injury) (Ruled-out) Bilateral lower leg cellulitis (Resolved) Diarrhea (Resolved) Cellulitis of right lower extremity (Ruled-out) BRBPR (bright red blood per rectum) (Resolved) C. difficile colitis (Resolved) Hyperkalemia (Resolved) 1. Hyperkalemia, etiology unclear, s/p kayexalate, resolved 2. Hypernatremia, mildly improved, will monitor with labs in am. 3. KIM on CKD, improving with IV fluids, labs in am 4. Type 2 DM, sugars are controlled, continue with current home regimen 4. Cellulitis of bilateral legs, chronic lymphedema of the legs with acute on chronic wounds, will continue with wound care 5 Noncompliance with medical regimen, self neglect, needs SNF, discussed with care managers 6. Pulmonary hypertension 7. anemia of chronic disease 8. DVT PPx- Heparin SC 9. Disposition: DC to SNF Code Visit Inpatient E&M: 85496 Subs Hosp L2
--- NOTE | 2017-12-29 16:01 | CASEMGMT ---
Green sheet on chart with instructions for d/c to [facility]. Plan: d/c to [facility] under skilled level of care on a convalescent stay. Staff to set up transport. Milady KELLY MSW
[2017-12-29 16:16] LABS: Bedside Glucose 158 mg/dL (70-110)
--- NOTE | 2017-12-29 21:59 | NURSING ---
Pt removed oxygen at 2150. Denies SOB - checked pulse ox pt 94% on room air. PT to leave oxygen off as long as she did not feel SOB.
[2017-12-29] MEDS: Rosuvastatin Calcium 5 MG Tablet 2.5 MG PO (22:05)
[2017-12-29 22:25] LABS: Bedside Glucose 184 mg/dL (70-110)
[2017-12-30] VITALS (10 sets, daily range): BP systolic 135–137; BP diastolic 47–50; PULSE 70–89; RESP 18; TEMP 36.9–37.4; O2SAT 92–94
[2017-12-30 00:41] LABS: Bedside Glucose 137 mg/dL (70-110)
[2017-12-30] MEDS: 0.9% NaCl Peripheral Flush Adult/Peds IV ×2 (00:44→04:23)
[2017-12-30] MEDS: Ondansetron 4 MG/2 ML Vial IV (00:44)
[2017-12-30] MEDS: proMETHazine 25 MG/ML Syringe 12.5 MG IV (04:23)
[2017-12-30] MEDS: Acetaminophen 325 MG Tablet 650 MG PO (04:24)
[2017-12-30] MEDS: Heparin Injection (Vial) 5,000 UNIT/ML VIAL 5000 UNIT SC (05:03)
[2017-12-30 07:01] LABS: Bedside Glucose 130 mg/dL (70-110)
[2017-12-30 07:03] LABS: Anion Gap 5 (5-15); BUN 29 mg/dL (7-18); BUN/Creat Ratio 25.9 RATIO (10-20); Calcium,Total 7.5 mg/dL (8.5-10.1); Chloride 119 mmol/L (98-107); Creatinine, Serum 1.12 mg/dL (0.55-1.02); EST Glomerular Filtration Rate 52 mL/min (>60); Est Glom Filt Rate - Afr Amer 62 mL/min (>60); Estimated Creatinine Clearance 49.17 ml/min; Glucose 129 mg/dL (74-106); Potassium 5.2 mmol/L (3.5-5.1); Sodium Level 145 mmol/L (136-145)
[2017-12-30 07:09] LABS: Absolute Lymphocyte Count 0.54 X10^3/ul (0.83-4.51); Absolute Neutrophil Count 7.9 X10^3/uL (2.0-7.7); Basophil# 0.01 X10^3/uL; Basophil% 0.1 % (0-1); Eosinophil# 0.15 X10^3/uL; Eosinophils% 1.7 % (0-5); Hematocrit 26.3 % (37-47); Hemoglobin 8.1 g/dl (12.0-15.0); Lymphocyte # 0.54 X10^3/ul (4.0); Lymphocyte % 6.1 % (19-41); Mean Corp Hgb Conc 30.8 g/gl (32-36); Mean Corpuscular Hgb 29.1 pg (27.0-32.0); Mean Corpuscular Volume 94.6 fL (81-99); Mean Platelet Vol. 9.2 fl (6.2-12.0); Monocyte# 0.28 X10^3/uL; Monocyte% 3.2 % (0-10); Neutrophil # 7.88 X10^3/uL (2.7-7.7); Neutrophil % 88.7 % (47-70); Platelet Count 88 K/mm3 (150-450); RBC Distribution Width SD 54.7 fl (35.1-43.9); Red Blood Count 2.78 M/mm3 (4.2-5.4); White Blood Count 8.9 K/mm3 (4.4-11.0)
[2017-12-30 07:13] LABS: Differential Indicated SCAN CRITERIA MET; POSITIVE COUNT NO; POSITIVE DIFFERENTIAL YES; POSITIVE MORPHOLOGY NO
[2017-12-30] MEDS: Insulin Lispro 100 UNIT/ML INSULN.PEN 15 UNIT SC ×2 (10:00→11:17)
[2017-12-30] MEDS: Gabapentin 100 MG Capsule PO (10:01)
[2017-12-30] MEDS: Aspirin 81 MG TAB.CHEW PO (10:01)
[2017-12-30] MEDS: Ferrous Gluconate 325 MG Tablet PO (10:01)
[2017-12-30] MEDS: Metoprolol Tartrate 100 MG Tablet PO (10:02)
[2017-12-30] MEDS: Pantoprazole Sodium 40 MG Tablet PO (10:02)
[2017-12-30] MEDS: Isosorbide Mononitrate 60 MG Tablet PO (10:02)
[2017-12-30] MEDS: amLODIPine 5 MG Tablet PO (10:02)
[2017-12-30] MEDS: Clopidogrel Bisulfate 75 MG Tablet PO (10:02)
--- NOTE | 2017-12-30 10:27 | TREXTCAR_ITS ---
- Diet 12/30/17 08:54 Diet: Renal: 60 gm protein Is pt able to select menu?: Yes Fluid restriction to less than 1500mls/day - Routine Orders/Code Status O2 Liters per Minute: 2 O2 Frequency: Continuous Keep PO Greater than or Equal to (%): 94 Routine Lab Work: CBC - within 3 days, BMP - within 3 days Code Status: Full Code - Wound(s) CHEVY LOWER LEGS Wound Type: scattered superficial stasis ulcers Dressing Change: Melgisorb - Suggestions for Active Care Hours to sit in a chair: 2 - at least, with the feet elevated Times a day to sit in chair: 5 - Therapies Extremity Affected:: Bilateral Lower Physical Therapy: Eval and Treat Occupational Therapy: Eval and Treat - Allergies/Procedures Done in Hospital Allergies/Adverse Reactions: Allergies Penicillins Allergy (Verified 12/27/17 01:50) Rash rosiglitazone maleate [From Avandia] Allergy (Verified 12/27/17 01:50) Swelling & diarrhea simvastatin [From Zocor] Allergy (Verified 12/27/17 01:50) Muscle weakness atorvastatin calcium [From Lipitor] Adverse Reaction (Verified 12/27/17 01:50) Muscle weakness esomeprazole magnesium [From Nexium] Adverse Reaction (Verified 12/27/17 01:50) Diarrhea lansoprazole [From Prevacid] Adverse Reaction (Verified 12/27/17 01:50) Diarrhea Sulfa (Sulfonamide Antibiotics) Adverse Reaction (Verified 12/27/17 01:50) Nausea/Vom/Diarrhea from PCP office records Procedures: None - Type of Care/Length of Stay Estimated LOS: Convalescent Care Less Than 30 days Type of Care Needed: Skilled Rehab Potential: Good Prognosis: Good - Additional Orders/Day of Discharge Additional Orders: Daily weights. Fluid restriction to less than 1500mls/day. Aggressive wound care with daily wound dressings. Ok to start on low dose lasix for worsening leg edema and weight gain. She had been off all of that for a while because of acute kidney injury. Day of Discharge: 12/30/17 - Dietary and Speech Recommendations Dietitian Recommendations/Changes: Rec Jerod bid (order from pharmacy) to help w / skin healing. Rec diet change to 1800 tae Cardiac/ low sodium w/ fluid restriction as indicated - Follow Up Care Primary Care Physician: Kim Field MD [Primary Care Provider] - Please follow up with your Primary Care Physician in: within 2 weeks of discharge Please Follow Up With: Minda Haynes DO When: in 1 week, see with recent blood work Please Follow Up With: Tate Leslie MD When: within 2 weeks
--- NOTE | 2017-12-30 10:35 | DS.PCM_ITS ---
Discharge Date and Diagnosis Date of Admission: 12/27/17 Date of Discharge: 12/30/17 - Primary Discharge Diagnosis Active and Suspected Problems Fall at home (Acute) Kalemia Hyponatremia KIM on CKD Bilateral leg ulcers/cellulitis - Secondary Discharge Diagnosis Chronic Problems Ulcer of right lower extremity with fat layer exposed (Chronic) anterior lower extremity ulcer Generalized weakness (Chronic) Venous insufficiency of both lower extremities (Chronic) Other specified peripheral vascular diseases (Chronic) Ulcer of left lower extremity with fat layer exposed (Chronic) Ulcer of right lower extremity with fat layer exposed (Chronic) Delayed wound healing (Chronic) Maceration of skin (Chronic) Acquired deformity of toe of both feet (Chronic) Type 2 diabetes mellitus with diabetic peripheral angiopathy without gangrene ( Chronic) Lymphedema in adult patient (Chronic) Noncompliance with treatment regimen (Chronic) 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) Aortic stenosis, mild (Chronic) Pulmonary arterial hypertension (Chronic) Pulmonary nodules (Chronic) Cholelithiasis (Chronic) Tricuspid regurgitation (Chronic) History of esophageal reflux (Chronic) History of hyperlipidemia (Chronic) History of hypertension (Chronic) S/P CABG (coronary artery bypass graft) (Chronic) Obesity (BMI 30.0-34.9) (Chronic) Stasis dermatitis of both legs (Chronic) 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) Thrombocytopenia (Chronic) Neuropathy, peripheral (Chronic) Hospital Course and Treatment Imaging Results: Clinical Impression(s) from Imaging Studies Chest X-Ray 12/29/17 10:44 IMPRESSION: Vascular congestion and a mild degree of CHF. Electronically Signed: Rik Morfin MD at 12:58 EDT Tel [phone], Service support , Consultations 12/27/17 04:37 Consult: Onc/Wound/political research scientist Routine Comment: Nephrology Operations: None Procedures: None Summary of Care Provided: 67y/o female is at this hospital, history of chronic bilateral venous stasis with chronic cellulitis and chronic ulcers, follows up with the wound clinic in [place]. Patient has been admitted numerous times with acute on chronic diastolic CHF and acute on chronic kidney injury. Patient in the last 2 admissions was recommended to go to the [place] [facility] but she declined. She came in again because she is not getting very little help from her brother at home. Her blood work was significant for hyperkalemia despite not being on any ACEI or potassium. She received a couple doses of Kayexalate, discharged on that for every 3 days, nephrology consulted. Patient will follow up with nephrology in the outpatient. Discharge Diet: 8 Cup Fluid Restriciton, Renal Diet Discharge Activity: Return to Normal Activity Home Medications: Medications to take at Discharge Aspirin [Aspirin, Baby] 81 mg PO DAILY@79910/20/14 Ferrous Gluconate 325 mg PO DAILY@79910/21/14 Metoprolol Tartrate [Lopressor (beta apryl)] 100 mg PO BID 10/21/14 Pantoprazole Sodium [Protonix] 40 mg PO BID 10/21/14 Rosuvastatin Calcium [Crestor] 2.5 mg PO QHS 10/21/14 Nitroglycerin [Nitrostat] 0.4 mg SUBLINGUAL Q5M PRN 11/24/14 Gabapentin [Neurontin] 100 mg PO BID 07/02/15 Ergocalciferol [Vitamin D] 50,000 units PO SA 02/16/16 Niacinamide [Niacin] 500 mg PO BID 02/16/16 Montelukast Sodium [Singulair] 10 mg PO QHS 05/06/16 Ondansetron [Zofran Odt] 8 mg PO Q6H PRN PRN 03/31/17 Amlodipine [Norvasc] 5 mg PO DAILY 10/12/17 Clopidogrel Bisulfate [Plavix] 75 mg PO DAILY #30 tab 10/16/17 Isosorbide Mononitrate [Imdur] 60 mg PO DAILY #30 tab 10/16/17 Glucerna Shake 120 ml PO TIDCM liquid 12/30/17 Heparin Injection (Vial) [Heparin Na] 5,000 unit SC Q8 vial 12/30/17 Insulin Glargine [Lantus SoloStar Pen] 40 units SC QHS pen 12/30/17 Insulin Lispro [Humalog KwikPen] 15 unit SC TIDAC insuln.pen 12/30/17 Insulin Lispro [Humalog KwikPen] See Protocol SC ACHS insuln.pen 12/30/17 Sodium Polystyrene Sulfonate [Kayexalate] 15 gm PO Q3D #3 ml 12/30/17 Following Prescrptions Were Given to Patient: Sodium Polystyrene Sulfonate [Kayexalate] 15 gm PO Q3D #3 ml Primary Care Physician: Kim Field MD [Primary Care Provider] - Please follow up with your Primary Care Physician in: within 2 weeks of discharge Please Follow Up With: Minda Haynes DO When: in 1 week, see with recent blood work Please Follow Up With: Tate Leslie MD When: within 2 weeks Disposition: Custodial facility Minutes spent on discharge:: 55 Medical Necessity - Tobacco Use Smoking Status: Never smoker Tobacco Use: Non-smoker Meaningful Use Info Meaningful Use Diagnoses (Choose all that apply): None applicable Code Visit Inpatient E&M: 08644 Disch Hosp
[2017-12-30 11:16] LABS: Bedside Glucose 160 mg/dL (70-110)
[2017-12-30] MEDS: Insulin Lispro 100 UNIT/ML INSULN.PEN SC (11:17)
[2017-12-30] MEDS: Sodium Polystyrene Sulfonate 15 GM/60 ML UDC 30 GM PO (11:17)
--- NOTE | 2017-12-30 12:30 | PCM.CONS.R ---
Consultation - Renal 12/30/17 PCP/ Referring MD: Requesting physician: Dr Hardin Primary care physician: Kim Field Reason for Consultation:: acute on CKD stage 3, hyperkalemia - History of Present Illness History of Present Illness: The patient is a 67 year old morbidly obese F admitted on 12/27 after sustaining a fall in her bathroom at home. Patient could not get up. Patient not able to care for herself and her brother unable to help. She is scheduled for transferred to [facility]. Consulted for acute kidney injury with hyperkalemia. Creatinine 2.34 on admission. She was last seen in the hospital in September on consult for acute kidney injury from diuretic therapy followed by IV contrast exposure. Baseline creatinine appears to be at 1.1. Cr 1.18 on 11/27/17. Potassium was elevated at 6.7 on admission improved to 4.6 with Kayexalate therapy with repeat dose today for K 5.2. She admits to drinking OJ at home every morning. She is on diuretic therapy for chronic leg edema as outpt in the past, ARB, history of pulmonary hypertension and diastolic heart failure. Currently off both. Pt is a poor historian, somnolent but arrousable. she is bedridden, unable to ambulate. - Allergies Allergies: Allergies Penicillins Allergy (Verified 12/27/17 01:50) Rash rosiglitazone maleate [From Avandia] Allergy (Verified 12/27/17 01:50) Swelling & diarrhea simvastatin [From Zocor] Allergy (Verified 12/27/17 01:50) Muscle weakness atorvastatin calcium [From Lipitor] Adverse Reaction (Verified 12/27/17 01:50) Muscle weakness esomeprazole magnesium [From Nexium] Adverse Reaction (Verified 12/27/17 01:50) Diarrhea lansoprazole [From Prevacid] Adverse Reaction (Verified 12/27/17 01:50) Diarrhea Sulfa (Sulfonamide Antibiotics) Adverse Reaction (Verified 12/27/17 01:50) Nausea/Vom/Diarrhea from PCP office records - Current Medications Current Medications: Current Medications Acetaminophen (Tylenol) 650 mg PO Q4H PRN PRN PRN Reason: pain/fever Last Admin: 12/30/17 04:24 Dose: 650 mg Amlodipine Besylate (Norvasc) 5 mg PO DAILY [facility] Last Admin: 12/30/17 10:02 Dose: 5 mg Aspirin (Aspirin, Baby) 81 mg PO DAILY@0800 [facility] Last Admin: 12/30/17 10:01 Dose: 81 mg Clopidogrel Bisulfate (Plavix) 75 mg PO DAILY [facility] Last Admin: 12/30/17 10:02 Dose: 75 mg Ferrous Gluconate (Ferrous Gluconate) 325 mg PO DAILY@0800 [facility] Last Admin: 12/30/17 10:01 Dose: 325 mg [facility]) [facility] Last Admin: 12/30/17 10:01 Dose: 100 mg Heparin Sodium (Porcine) (Heparin Na) 5,000 unit SC Q8 [facility] Last Admin: 12/30/17 05:03 Dose: 5,000 u Insulin Glargine (Lantus (Bkc)) 40 units SC QHS [facility] Last Admin: 12/29/17 22:07 Dose: 40 u Insulin Human Lispro (Humalog Kwikpen (Bkc)) 15 unit SC TIDAC [facility] Last Admin: 12/30/17 11:17 Dose: 15 u Insulin Human Lispro (Humalog Kwikpen (Bkc)) 0 unit SC ACHS [facility] PRN Reason: Protocol Last Admin: 12/30/17 11:17 Dose: 2 u Isosorbide Mononitrate (Imdur) 60 mg PO DAILY [facility] Last Admin: 12/30/17 10:02 Dose: 60 mg Metoprolol Tartrate (Lopressor (Beta Richard)) 100 mg PO BID [facility] Last Admin: 12/30/17 10:02 Dose: 100 mg Nutritional Formula (Lactose Free) (Glucerna Shake) 120 ml PO TIDCM [facility] Last Admin: 12/30/17 11:18 Dose: Not Given Ondansetron HCl (Zofran) 4 mg IV Q6H PRN PRN PRN Reason: NAUSEA Last Admin: 12/30/17 00:44 Dose: 4 mg Pantoprazole Sodium (Protonix) 40 mg PO BID [facility] Last Admin: 12/30/17 10:02 Dose: 40 mg Promethazine HCl (Phenergan) 12.5 mg IV Q6H PRN PRN PRN Reason: NAUSEA/VOMITING Last Admin: 12/30/17 04:23 Dose: 12.5 mg Rosuvastatin Calcium (Crestor) 2.5 mg PO QHS [facility] Last Admin: 12/29/17 22:05 Dose: 2.5 mg Sodium Chloride () 5 - 30 ml IV UD PRN PRN Reason: SALINE FLUSH Last Admin: 12/30/17 04:23 Dose: 20 ml - Past Medical History Past Medical History (Chronic Problems): Chronic Problems Ulcer of right lower extremity with fat layer exposed (Chronic) anterior lower extremity ulcer Generalized weakness (Chronic) Venous insufficiency of both lower extremities (Chronic) Other specified peripheral vascular diseases (Chronic) Ulcer of left lower extremity with fat layer exposed (Chronic) Ulcer of right lower extremity with fat layer exposed (Chronic) Delayed wound healing (Chronic) Maceration of skin (Chronic) Acquired deformity of toe of both feet (Chronic) Type 2 diabetes mellitus with diabetic peripheral angiopathy without gangrene (Chronic) Lymphedema in adult patient (Chronic) Noncompliance with treatment regimen (Chronic) 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) Aortic stenosis, mild (Chronic) Pulmonary arterial hypertension (Chronic) Pulmonary nodules (Chronic) Cholelithiasis (Chronic) Tricuspid regurgitation (Chronic) History of esophageal reflux (Chronic) History of hyperlipidemia (Chronic) History of hypertension (Chronic) S/P CABG (coronary artery bypass graft) (Chronic) Obesity (BMI 30.0-34.9) (Chronic) Stasis dermatitis of both legs (Chronic) 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) Thrombocytopenia (Chronic) Neuropathy, peripheral (Chronic) - Past Surgical History Surgical History: coronary bypass surgery, - - Right femoral bypass surgery, cochlear impants - Social History Smoking Status: Never smoker Alcohol: None Drugs: None - Family History Sibling History Items: Heart Disease Maternal History Items: No pertinent history Paternal History Items: No pertinent history Review of Systems Constitutional: Denies: Anorexia, Chills, Fever, Weakness HEENT: Denies: Head Aches Cardiovascular: Reports: Edema. Denies: Chest Pain Respiratory: Denies: Shortness of Breath Gastrointestinal: Denies: Abdominal Pain, Diarrhea, Nausea, Vomiting Genitourinary: Denies: Dysuria Skin: Reports: Wounds Neurological: Reports: - - unable to ambulate Patient Problems: Active and Suspected Problems Fall at home (Acute) - Physical Exam General: - - somnolent, arrousable with verbal stimuli. Poor historian HEENT: Atraumatic Oral: Dry Mucosa Neck: Supple Lungs: Clear to auscultation Cardiovascular: Regular rate, No rub noted Abdomen: Bowel Sounds Present, Soft, Non Tender, Non-Distended, Obese - super Extremities: No edema, - - legs wrapped, dry venous stasis wounds Skin: Ulcer/ Wound - dry, - Musculoskeletal: No Muscle Wasting Neurological: - - poor historian Psych/Mental Status: Flat Affect Comment: limited historian Vital Signs Temp Pulse Resp BP Pulse Ox 98.4 F 72 18 135/50 H 94 12/30/17 09:48 12/30/17 10:02 12/30/17 09:50 12/30/17 10:02 12/30/17 09:48 Oxygen Flow Rate (L/min) 2 Oxygen Delivery Method Nasal Cannula Weight: 96.6 kg Body Mass Index (BMI) 32.3 Intake and Output for Last 24 Hours 12/28/17 12/29/17 12/30/17 23:59 23:59 23:59 Intake Total 2947 / 2947 1606 / 1606 450 / 450 Output Total 1050 / 1050 200 / 200 Balance 1897 / 1897 1606 / 1606 250 / 250 Laboratory Tests Past 24 Hrs 12/30/17 12/30/17 05:50 05:50 WBC 8.9 RBC 2.78 L Hgb 8.1 L Hct 26.3 L MCV 94.6 MCH 29.1 MCHC 30.8 L RDW 16.0 H RDW Differential 54.7 H Plt Count 88 L MPV 9.2 Immature Gran % (Auto) 0.200 Neut % (Auto) 88.7 H Lymph % (Auto) 6.1 L [place] % (Auto) 3.2 Eos % (Auto) 1.7 Baso % (Auto) 0.1 Absolute Neuts (auto) 7.9 H Absolute Lymphs (auto) 0.54 L Total Counted Not Reportable Sodium 145 Potassium 5.2 H Chloride 119 H Carbon Dioxide 21.0 Anion Gap 5 BUN 29 H Creatinine 1.12 H Estim Creat Clear Calc 49.17 Est GFR (MDRD) Af Amer 62 Est GFR (MDRD) Non-Af 52 L BUN/Creatinine Ratio 25.9 H Glucose 129 H Calcium 7.5 L POC Glucose 12/30/17 12/30/17 12/30/17 11:06 06:53 00:31 POC Glucose 160 H 130 H 137 H 12/29/17 12/29/17 21:57 16:09 POC Glucose 184 H 158 H Clinical Impression(s) from Imaging Studies Chest X-Ray 12/29/17 10:44 IMPRESSION: Vascular congestion and a mild degree of CHF. Electronically Signed: Rik Morfin MD at 12:58 EDT Tel [phone], Service support , Assessment/Plan All Active Problems Fall at home (Acute) Bilateral lower leg cellulitis (Resolved) KIM (acute kidney injury) (Acute) Malaise (Resolved) Fever (Resolved) Non-pressure chronic ulcer of other part of left lower leg limited to breakdown of skin (Resolved) Non-pressure chronic ulcer of other part of right foot limited to breakdown of skin (Resolved) Non-pressure chronic ulcer of other part of left foot limited to breakdown of skin (Resolved) Acute on chronic diastolic heart failure (Resolved) Acute CHF (congestive heart failure) (Resolved) Acute respiratory failure with hypoxia (Resolved) KIM (acute kidney injury) (Ruled-out) Bilateral lower leg cellulitis (Resolved) Diarrhea (Resolved) Cellulitis of right lower extremity (Ruled-out) BRBPR (bright red blood per rectum) (Resolved) C. difficile colitis (Resolved) Hyperkalemia (Resolved) 1. acute on CKD Stage 3 likely due to prerenal event. Creatinine 2.34 improved to 1.12 today. Agree with holding diuretics since she has no evidence of volume expansion. Hold on vasomotor drugs like ACEI, ARBs especially with hx hyperkalemia. 2. Diabetic nephropathy with proteinuria. UPCR 2.7g in September 2017. Consider low dose ARB when potassium stabilized. 3. Hyperkalemia K 6.7 improved to 4.6, 5.2 today. Follow low potassium diet. Hold on ACEi/ARB for now. 4. Morbid obesity 5. Pulmonary hypertension. No edema on exam. Agree with holding diuretic therapy. Continue low sodium diet. 6. Venous stasis ulcers, afebrile Thank you, DW hospitalist, nursing staff
--- NOTE | 2017-12-30 12:56 | NURSING ---
report called to nurse Martinez at [facility]
== END 2017-12-30 13:35 | disposition skilled nursing facility (03) | DRG 316 ==
LOC: ED 02:34 → PCU 03:56
PROVIDERS: Admitting Provider Internal Medicine; Emergency Provider Emergency Medicine; Family Provider Internal Medicine; PCP Internal Medicine; Visit Provider Internal Medicine
DX: N17.9 Acute kidney failure, unspecified (principal); E87.5 Hyperkalemia; L03.115 Cellulitis of right lower limb; L03.116 Cellulitis of left lower limb; E87.0 Hyperosmolality and hypernatremia; I50.32 Chronic diastolic (congestive) heart failure; I13.0 Hypertensive heart and chronic kidney disease with heart failure and stage 1 through stage 4 chronic kidney disease, or unspecified chronic kidney disease; D69.6 Thrombocytopenia, unspecified; L97.929 Non-pressure chronic ulcer of unspecified part of left lower leg with unspecified severity; L97.919 Non-pressure chronic ulcer of unspecified part of right lower leg with unspecified severity; Z95.1 Presence of aortocoronary bypass graft; Z79.4 Long term (current) use of insulin; D63.8 Anemia in other chronic diseases classified elsewhere; I89.0 Lymphedema, not elsewhere classified; Z91.19 Patient's noncompliance with other medical treatment and regimen; E11.22 Type 2 diabetes mellitus with diabetic chronic kidney disease; I87.2 Venous insufficiency (chronic) (peripheral); E11.51 Type 2 diabetes mellitus with diabetic peripheral angiopathy without gangrene; E66.01 Morbid (severe) obesity due to excess calories; Z68.32 Body mass index [BMI] 32.0-32.9, adult; N18.3 Chronic kidney disease, stage 3 (moderate); W01.0XXA Fall on same level from slipping, tripping and stumbling without subsequent striking against object, initial encounter; Y92.002 Bathroom of unspecified non-institutional (private) residence as the place of occurrence of the external cause; E78.5 Hyperlipidemia, unspecified
CPT/HCPCS: 36415; 51702; 71045; 80048; 81001; 82962; 85025; 93005; 94640; 97110; 97162; 97166; 97530; 97802; 99285; J7030; A4216; J2405; J7799

== ENCOUNTER 2017-12-31 10:56 | Outpatient (RCR) | payer MEDICAID, SELFPAY ==
[2017-12-27 00:41] VITALS: BP 120/61; PULSE 71; RESP 18; TEMP 36.4
== END 2018-01-26 23:59 ==
LOC: WC 10:56
PROVIDERS: Family Provider Internal Medicine; PCP Internal Medicine; Visit Provider Nurse Practitioner Family
DX: Z09 Encounter for follow-up examination after completed treatment for conditions other than malignant neoplasm (principal)

== ENCOUNTER 2018-01-24 14:06 | Inpatient (IN) | payer MEDICAID, SELFPAY ==
[2018-01-24] VITALS (13 sets, daily range): BP systolic 115–152; BP diastolic 40–60; PULSE 74–97; RESP 18–28; TEMP 36.9–38.5; O2SAT 90–96; BMI 33.3; BMI 32.1
--- NOTE | 2018-01-24 14:20 | EKG12_ITS ---
Test Reason : FEVER Blood Pressure : / mmHG Vent. Rate : 089 BPM Atrial Rate : 089 BPM P-R Int : 122 ms QRS Dur : 068 ms QT Int : 344 ms P-R-T Axes : 044 028 150 degrees QTc Int : 418 ms Normal sinus rhythm ST & T wave abnormality, consider anterolateral ischemia Abnormal ECG Confirmed by ANUSHKA CHANCE, PASTOR ([id number]), digital editor PROMISE DICKINSON ([id number] on 01/26/2018 3:16:33 PM Referred By: Confirmed By:PASTOR REVELES MD
--- NOTE | 2018-01-24 14:20 | RAD_ITS ---
STUDY: X-RAY CHEST REASON FOR EXAM: Female, 67 years old. Fever and lower leg edema TECHNIQUE: Single view of the chest was obtained COMPARISON: December 29, 2017 chest radiograph FINDINGS: Bilateral reticulonodular opacities with patchy airspace opacities in the right lung predominantly in the right upper lobe. Cardiac size is enlarged. Left lower lobe retrocardiac region airspace opacities. Midline sternotomy wires. IMPRESSION: Interval development of bilateral patchy airspace opacities may relate with pulmonary edema or multifocal pneumonia. No pneumothorax. Electronically Signed: Mehul Hsu, at 15:06 EDT Tel , Service support , RAD/Chest 1 View (Portable)
--- NOTE | 2018-01-24 14:42 | ED.VISSUMM ---
- ER Visit Summary Date of Service: 01/24/18 Chief Complaint: [] Vomiting fever worsening cellulitis lower extremities History of Present Illness: The patient is a 67 F [] has a history of cellulitis involving lower extremities recent wound culture shows Pseudomonas and group C strep she indicates she has had persistent fevers and vomiting and skilled nursing center in for evaluation she denies chest pain or abdominal pain bowel bladder habits have been normal she indicates her feet continue to get red continue to lose fluid despite therapy and nursing center denies headache denies back pain chest or abdominal pain Physical Examination: [] Afebrile here apparently just receiving Tylenol prior to coming to the emergency department HEENT exams unremarkable the next is unremarkable she has a very loud systolic murmur her lungs have rhonchi at the bases the abdomen is soft obese but nontender she has extensive cellulitic changes consisting of crusting skin breakdown dilution of skin to both lower extremities right and left there is no obvious subcu air or crepitance she is moving all 4 extremities but decreased range of motion to her lower extremities both lower extremities are quite red diffusely neurologically she is awake alert answering questions Test Results: [] Emergency Department Course and Treatment: [] All the above screening labs IV fluids are obtained She returns with an elevated white count of 22, urine looks concentrated, her chest x-ray shows left-sided pneumonia, she has been on antibiotics related to the cellulitis she has the wound cultures as above I spoke with the hospitalist service given all the above given the pneumonia they feel her symptoms are more likely related to her pneumonia and her cellulitis based on what they can determine seems stable so they would like her started on Vanco and Zosyn, would like a lactic acid level drawn if it is under 4 she can go to PCU but she will be admitted her blood pressure was 150/80 heart rate 92 resting comfortably in the bed in no distress awake and alert Treatment Plan: [] Disposition: [] Admit stable Impression: [] Healthcare associated left-sided pneumonia, bilateral lower extremity cellulitis instant pain diabetes mellitus This note was generated with [employer] dictation software. It may contain incorrect words, spelling, and punctuation that were not noted in review of the chart prior to signing ED Disposition - Plan for ED Patient: Chief Complaint: Fever Referrals: Kim Field MD [Primary Care Provider] -
[2018-01-24] MEDS: 0.9% Normal Saline 1,000 ML 1000 ML IV (14:43)
[2018-01-24 14:57] LABS: Absolute Neutrophil Count 20.1 X10^3/uL (2.0-7.7); Hematocrit 30.7 % (37-47); Hemoglobin 9.1 g/dl (12.0-15.0); Lymphocyte % 1.4 % (19-41); Mean Corp Hgb Conc 29.6 g/gl (32-36); Mean Corpuscular Hgb 29.2 pg (27.0-32.0); Mean Corpuscular Volume 98.4 fL (81-99); Mean Platelet Vol. 9.9 fl (6.2-12.0); Monocyte# 0.62 X10^3/uL; Monocyte% 2.9 % (0-10); Neutrophil # 20.06 X10^3/uL (2.7-7.7); Neutrophil % 95.5 % (47-70); POSITIVE COUNT NO; POSITIVE DIFFERENTIAL YES; Platelet Count 174 K/mm3 (150-450); RBC Distribution Width CV 16.1 % (11.6-14.6); RBC Distribution Width SD 57.9 fl (35.1-43.9); Red Blood Count 3.12 M/mm3 (4.2-5.4)
[2018-01-24 14:58] LABS: Differential Indicated SCAN CRITERIA MET; POSITIVE MORPHOLOGY YES
[2018-01-24 15:10] LABS: BUN 72 mg/dL (7-18); Creatinine, Serum 2.69 mg/dL (0.55-1.02); Estimated Creatinine Clearance 20.47 ml/min; Glucose 155 mg/dL (74-106)
[2018-01-24 15:11] LABS: AST(SGOT) 22 U/L (15-37); Alanine Aminotransfer ALT/SGPT 20 U/L (13-56); Albumin, Serum 2.3 g/dL (3.2-5.0); Alkaline Phosphatase 123 U/L (45-117); Anion Gap 6 (5-15); BUN/Creat Ratio 26.8 RATIO (10-20); Bilirubin, Direct 0.52 mg/dL (0.00-0.30); Calcium,Total 8.4 mg/dL (8.5-10.1); Chloride 107 mmol/L (98-107); EST Glomerular Filtration Rate 19 mL/min (>60); Est Glom Filt Rate - Afr Amer 23 mL/min (>60); Globulin 4.8 g/dL (2.2-4.2); Lipase 235 U/L (73-393); Potassium 5.3 mmol/L (3.5-5.1); Protein, Total 7.1 g/dL (6.4-8.2); Sodium Level 142 mmol/L (136-145)
[2018-01-24 15:26] LABS: Mucous, Urine 0 SEEN /hpf (<or=2+)
--- NOTE | 2018-01-24 15:53 | PCM.HP.STD ---
Problem List (1) Venous insufficiency of both lower extremities Status: Chronic (2) Other specified peripheral vascular diseases Status: Chronic (3) Ulcer of left lower extremity with fat layer exposed Status: Chronic (4) Ulcer of right lower extremity with fat layer exposed Status: Chronic (5) Delayed wound healing Status: Chronic (6) Type 2 diabetes mellitus with diabetic peripheral angiopathy without gangrene Status: Chronic Qualifiers: (7) Pulmonary arterial hypertension Status: Chronic (8) History of esophageal reflux Status: Chronic (9) History of hyperlipidemia Status: Chronic (10) History of hypertension Status: Chronic (11) CKD stage 3 secondary to diabetes Status: Chronic (12) Thrombocytopenia Status: Chronic (13) Neuropathy, peripheral Status: Chronic Qualifiers: History of Present Illness Date of Admission: 01/24/18 Chief Complaint: Fever, vomiting. The patient is a 67 year old F with complicated past medical history as mentioned above [facility] because of vomiting and fever. Patient was not able to provide good detailed history and she was poor informant. She mentioned that she was transferred from the [facility] because she has been vomiting and she was informed that she had a fever. Reportedly, patient had a spike of fever admission, and she had nausea and vomiting. She does have a history of chronic bilateral lower extremity lymphedema which was complicated by chronic bilateral leg wounds with delayed healing, skin laceration and recurrent infections and cellulitis. Patient was admitted back in Oct, 2017 for bilateral lower extremity cellulitis, bilateral leg nonhealing ulcers and cellulitis and she was discharged to [facility] on Levaquin. During that admission, wound culture from the both legs revealed Proteus, pseudomonas aeruginosa, staph and Burkholderia. She states that she has been having cough with clear sputum over the last 5-6 days as well. She denied worsening shortness of breath. She denies abdominal pain, constipation or diarrhea. She has a history of CAD status post CABG in 2007, has been on aspirin, Plavix, metoprolol and isosorbide mononitrate and she has been stable.. She has history of type 2 diabetes mellitus and she has been on hemoglobin insulin pre-meals 3 times daily as well as Lantus nightly, most recent hemoglobin A1c was from September, it was 6. She had a history of stage III chronic kidney disease of probably secondary to hypertensive and diabetic kidney disease and her baseline creatinine has been around 1.2-2 mg/dL, admission creatinine is 2.69 which is up from her baseline. She has history of chronic respiratory failure and she has been on oxygen at 2 L at the [facility]. In the emergency department, maximum temperature was 99.5, heart rate was stable, blood pressure stable, pulse ox is 91% on 4 L. Her routine blood work is remarkable for leukocytosis, hemoglobin of 9.1 g/dL, potassium 5.3 and creatinine of 2.69. His lactic acid is normal. His EKG revealed normal sinus rhythm with T-wave inversion in lateral chest leads, no acute ischemic changes. Chest x-ray revealed left lower lobe patchy of disease, infiltrates. She is being admitted for sepsis due to healthcare associated pneumonia as well as probable bilateral lower extremity cellulitis with nonhealing ulcers/wounds in context of history of chronic bilateral lower extremity lymphedema, skin maceration, nonhealing ulcers and recurrent infections and also found to have acute kidney injury on top of stage III chronic kidney disease and mild hyperkalemia. Past Medical History Past Medical History (Chronic Problems): Chronic Problems Ulcer of right lower extremity with fat layer exposed (Chronic) anterior lower extremity ulcer Venous insufficiency of both lower extremities (Chronic) Other specified peripheral vascular diseases (Chronic) Ulcer of left lower extremity with fat layer exposed (Chronic) Ulcer of right lower extremity with fat layer exposed (Chronic) Delayed wound healing (Chronic) Maceration of skin (Chronic) Acquired deformity of toe of both feet (Chronic) Type 2 diabetes mellitus with diabetic peripheral angiopathy without gangrene (Chronic) Lymphedema in adult patient (Chronic) Noncompliance with treatment regimen (Chronic) 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) Aortic stenosis, mild (Chronic) Pulmonary arterial hypertension (Chronic) Pulmonary nodules (Chronic) Cholelithiasis (Chronic) Tricuspid regurgitation (Chronic) History of esophageal reflux (Chronic) History of hyperlipidemia (Chronic) History of hypertension (Chronic) S/P CABG (coronary artery bypass graft) (Chronic) Obesity (BMI 30.0-34.9) (Chronic) Stasis dermatitis of both legs (Chronic) 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) Thrombocytopenia (Chronic) Neuropathy, peripheral (Chronic) Allergies Penicillins Allergy (Verified 12/27/17 01:50) Rash rosiglitazone maleate [From Avandia] Allergy (Verified 12/27/17 01:50) Swelling & diarrhea simvastatin [From Zocor] Allergy (Verified 12/27/17 01:50) Muscle weakness atorvastatin calcium [From Lipitor] Adverse Reaction (Verified 12/27/17 01:50) Muscle weakness esomeprazole magnesium [From Nexium] Adverse Reaction (Verified 12/27/17 01:50) Diarrhea lansoprazole [From Prevacid] Adverse Reaction (Verified 12/27/17 01:50) Diarrhea Sulfa (Sulfonamide Antibiotics) Adverse Reaction (Verified 12/27/17 01:50) Nausea/Vom/Diarrhea from PCP office records Home Medications: Ambulatory Orders Medication Instructions Recorded Aspirin [Aspirin, Baby] 81 mg PO DAILY@0810/20/14 Ferrous Gluconate 325 mg PO DAILY@79910/21/14 Metoprolol Tartrate [Lopressor 100 mg PO BID 10/21/14 (beta apryl)] Pantoprazole Sodium [Protonix] 40 mg PO BID 10/21/14 Rosuvastatin Calcium [Crestor] 2.5 mg PO QHS 10/21/14 Nitroglycerin [Nitrostat] 0.4 mg SUBLINGUAL Q5M PRN 11/24/14 Gabapentin [Neurontin] 100 mg PO BID 07/02/15 Ergocalciferol [Vitamin D] 50,000 units PO SA 02/16/16 Niacinamide [Niacin] 500 mg PO BID 02/16/16 Montelukast Sodium [Singulair] 10 mg PO QHS 05/06/16 Ondansetron [Zofran Odt] 8 mg PO Q6H PRN PRN 03/31/17 Amlodipine [Norvasc] 5 mg PO DAILY 10/12/17 Clopidogrel Bisulfate [Plavix] 75 mg PO DAILY #30 tab 10/16/17 Isosorbide Mononitrate [Imdur] 60 mg PO DAILY #30 tab 10/16/17 Insulin Lispro [Humalog KwikPen] 15 unit SC TIDAC insuln.pen 12/30/17 Insulin Lispro [Humalog KwikPen] See Protocol SC ACHS insuln.pen 12/30/17 Alpha Lipoic Acid 600 mg PO QHS 01/24/18 Furosemide [Lasix] 40 mg PO DAILY 01/24/18 Insulin Glargine [Lantus SoloStar 45 units SC QHS 01/24/18 Pen] Surgical History: coronary bypass surgery, - - Right femoral bypass surgery, cochlear impants Psychiatric History: No pertinent psych hx TIP BANDER History: No pertinent TIP BANDER history Lives: [facility] Smoking Status: Never smoker Alcohol: None Drugs: None - *Family History Sibling History Items: Heart Disease Maternal History Items: No pertinent history Paternal History Items: No pertinent history Review of Systems Constitutional: Reports: Fever, Weakness. Denies: Anorexia, Chills Eyes: Denies: Blurred vision, Double vision, Drainage, Redness HEENT: Denies: Difficulty Hearing, Dysphasia, Ear Pain, Eye Pain, Nasal Congestion, Sore Throat Cardiovascular: Denies: Chest Pain, Chest Pressure, Chest Tightness, Heaviness, Light Headedness, Palpitations, Syncope Respiratory: Reports: Cough, Sputum production. Denies: Pleuritic Pain, Shortness of Breath, Wheezing Gastrointestinal: Reports: Nausea, Vomiting. Denies: Abdominal Pain, Constipation, Diarrhea Genitourinary: Denies: Dysuria, Frequency, Hematuria Musculoskeletal: Reports: Leg Pain. Denies: Arm Pain, Back Pain Skin: Denies: Dryness, Rash Neurological: Denies: Balance problems, Double vision, Change in Speech, Slurred speech, Confusion, Headaches, Incoordination, Numbness Psychiatric: Denies: Anxiety, Depression Endocrine: Denies: Change in Body Habitus, Polydipsia VTE Information - Inpt Only VTE Present on Admission: No VTE Mechan Device Prophylaxis: None VTE Pharm Prophylaxis ordered?: Yes - Physical Exam General: Alert, Oriented x3, Cooperative, No apparent distress HEENT: Atraumatic, PERRLA, EOMI, Normocephalic Oral: Moist Mucosa, No Gingival or Mucosal Lesions/ Ulcerations Neck: Supple, No JVD, Negative Carotid Bruits, Trachea Midline, Thyroid Normal Size and Texture Lungs: No wheeze, Diminished, Rales, Rhonchi, Short of Breath, - - Decreased breath sounds at the bases, more on the right base, crackles. Cardiovascular: Regular rate, Regular Rhythm, Normal S1, Normal S2, No murmurs, PMI Normal Abdomen: Bowel Sounds Present, Soft, Non Tender, Non-Distended, No Hepato-splenomegaly, Obese Extremities: No clubbing, No cyanosis, - - Right leg: Erythema, swelling, skin maceration starting from just below the right knee down up to the toes, serous drainage, seeping, hot to palpation, tender. Left leg: Mild erythema and mild swelling extending from just below the left knee down to the toes, minimal serous drainage. Skin: No rashes, Ulcer/ Wound Lymphatic: No Cervical, Supraclavicular, or Inguinal Adenopathy Neurological: Cranial nerves II-XII grossly intact, Motor Exam 5/5 strength throughout Psych/Mental Status: Normal Affect, Appropriate, Alert and oriented to time, place, person, mood and affect Vital Signs Temp Pulse Resp BP Pulse Ox 99.5 F H 92 22 H 152/60 H 91 01/24/18 15:45 01/24/18 15:45 01/24/18 15:45 01/24/18 15:45 01/24/18 15:45 Oxygen Flow Rate (L/min) 4 Oxygen Delivery Method Nasal Cannula Weight: 218 lb 14.704 oz Body Mass Index (BMI) 33.3 Finger Stick Blood Glucose 262 Laboratory Tests Past 24 Hrs 01/24/18 01/24/18 01/24/18 14:45 14:45 14:45 WBC 21.0 H RBC 3.12 L Hgb 9.1 L Hct 30.7 L MCV 98.4 MCH 29.2 MCHC 29.6 L RDW 16.1 H RDW Differential 57.9 H Plt Count 174 MPV 9.9 Immature Gran % (Auto) 0.200 Neut % (Auto) 95.5 H Lymph % (Auto) 1.4 L [place] % (Auto) 2.9 Eos % (Auto) 0.0 Baso % (Auto) 0.0 Absolute Neuts (auto) 20.1 H Absolute Lymphs (auto) 0.30 L Total Counted Pending Sodium 142 Potassium 5.3 H Chloride 107 Carbon Dioxide 29.0 Anion Gap 6 BUN 72 H Creatinine 2.69 H Estim Creat Clear Calc 20.47 Est GFR (MDRD) Af Amer 23 L Est GFR (MDRD) Non-Af 19 L BUN/Creatinine Ratio 26.8 H Glucose 155 H Lactic Acid Pending Calcium 8.4 L Total Bilirubin 0.80 Direct Bilirubin 0.52 H AST 22 ALT 20 Alkaline Phosphatase 123 H Total Protein 7.1 Albumin 2.3 L Globulin 4.8 H Lipase 235 Urine Color Urine Clarity Urine pH Ur Specific [place] Urine Protein Urine Glucose (UA) Urine Ketones Urine Occult Blood Urine Nitrite Urine Bilirubin Urine Urobilinogen Ur Leukocyte Esterase Urine RBC Urine WBC Ur Squamous Epith Cells Urine Bacteria Urine Mucus 01/24/18 15:07 WBC RBC Hgb Hct MCV MCH MCHC RDW RDW Differential Plt Count MPV Immature Gran % (Auto) Neut % (Auto) Lymph % (Auto) [place] % (Auto) Eos % (Auto) Baso % (Auto) Absolute Neuts (auto) Absolute Lymphs (auto) Total Counted Sodium Potassium Chloride Carbon Dioxide Anion Gap BUN Creatinine Estim Creat Clear Calc Est GFR (MDRD) Af Amer Est GFR (MDRD) Non-Af BUN/Creatinine Ratio Glucose Lactic Acid Calcium Total Bilirubin Direct Bilirubin AST ALT Alkaline Phosphatase Total Protein Albumin Globulin Lipase Urine Color Pending Urine Clarity Pending Urine pH Pending Ur Specific [place] Pending Urine Protein Pending Urine Glucose (UA) Pending Urine Ketones Pending Urine Occult Blood Pending Urine Nitrite Pending Urine Bilirubin Pending Urine Urobilinogen Pending Ur Leukocyte Esterase Pending Urine RBC Pending Urine WBC Pending Ur Squamous Epith Cells Pending Urine Bacteria Pending Urine Mucus Pending Clinical Impression(s) from Imaging Studies Chest X-Ray 01/24/18 14:20 IMPRESSION: Interval development of bilateral patchy airspace opacities may relate with pulmonary edema or multifocal pneumonia. No pneumothorax. Assessment/Plan All Active Problems BRBPR (bright red blood per rectum) (Resolved) C. difficile colitis (Resolved) Hyperkalemia (Resolved) This is a 67 years old female patient transferred [facility] because of fever and vomiting and she was found to have right lower lobe infiltrate as well as questionable worsening bilateral lower extremity erythema and swelling in context of history of bilateral lower extremity lymphedema, recurrent cellulitis, nonhealing wounds and skin maceration and she was found to have healthcare associated pneumonia with sepsis, acute kidney injury on top of stage III chronic kidney disease as well as probable recurrent bilateral lower extremity, more on the right lower extremity, cellulitis, nonhealing ulcers and infected wounds. #1 sepsis: Secondary to healthcare associated pneumonia and probable recurrent bilateral lower extremity, more on the right side, cellulitis, diabetic nonhealing infected ulcers. Her lactic acid is normal. Her vital signs are stable, febrile. Blood and urine culture sent. Plan: Admit to PCU, cardiac monitoring, sputum culture, wound culture, follow blood and urine cultures, start IV vancomycin and aztreonam, gentle IV fluids for hydration, repeat CBC and BMP tomorrow morning, PT OT evaluation and treatment. #2 right lower lobe healthcare associated pneumonia: Chest x-ray reviewed. She does have leukocytosis, febrile, tachypneic. Lactic acid is normal. She is a [facility] resident and she was admitted couple of times in the last 3 months. Plan: Sputum culture, blood culture, urine culture, start IV vancomycin and aztreonam as above, bronchodilators, incentive spirometer, Mucinex twice daily, chest physiotherapy. #3 probable recurrent bilateral lower extremity leg cellulitis, diabetic nonhealing infected wounds and ulcers: She does have chronic bilateral lower extremity lymphedema, nonhealing ulcers with recurrent infections. At this time, her right leg is more swollen, more erythematous and hot to palpation. There is seeping and oozing with serous drainage on both legs. On Oct, 2017, she was admitted for the same reason and wound culture revealed Proteus, Pseudomonas, Burkholderia and staph, culture reviewed. Plan: Start IV vancomycin and aztreonam as above, wound care nurse consult. #4 acute kidney injury double stage III chronic disease: Baseline creatinine has been around 1.2-2 mg/dL. Admission creatinine is 2.69. It is likely because of infection and sepsis. Plan: Gentle IV fluids for hydration, input output chart, hold Lasix, repeat BMP tomorrow morning. #5 mild hyperkalemia: Potassium is 5.3. No acute changes. Plan: IV fluids, Kayexalate ?1, repeat BMP tomorrow morning. #6 CAD status post CABG: EKG reviewed, no acute ischemic changes. Patient has no chest pain. Continue aspirin, Plavix, statins, isosorbide mononitrate and metoprolol. #7 chronic respiratory failure: Normally, she is on oxygen at the [facility] at 2 L. At this time, she is on 4 L. She does not look to be in severe distress. Plan to treat underlying pneumonia, bronchodilators. #8 type 2 diabetes mellitus: ADA diet, Accu-Cheks, insulin sliding scale, continue Lantus and pre-meal Humalog. #9 hypertension: Blood pressure stable, continue Norvasc, metoprolol and isosorbide mononitrate. #10 DVT prophylaxis: Subcu heparin. Other chronic medical problems: #1 chronic bilateral venous insufficiency of both lower extremities/lymphedema. #2 pulmonary hypertension. #3 peripheral neuropathy. #4 hyperlipidemia. #5 GERD. This note was generated with [employer] dictation software. It may contain incorrect words, spelling, and punctuation that were not noted in checking the note before signing. Code Visit Inpatient E&M: 41458 Init Hosp L3
[2018-01-24 16:02] LABS: Differential Comment SCANNED
--- NOTE | 2018-01-24 16:04 | HP.PCM_ITS ---
Problem List (1) Venous insufficiency of both lower extremities Status: Chronic (2) Other specified peripheral vascular diseases Status: Chronic (3) Ulcer of left lower extremity with fat layer exposed Status: Chronic (4) Ulcer of right lower extremity with fat layer exposed Status: Chronic (5) Delayed wound healing Status: Chronic (6) Type 2 diabetes mellitus with diabetic peripheral angiopathy without gangrene Status: Chronic Qualifiers: (7) Pulmonary arterial hypertension Status: Chronic (8) History of esophageal reflux Status: Chronic (9) History of hyperlipidemia Status: Chronic (10) History of hypertension Status: Chronic (11) CKD stage 3 secondary to diabetes Status: Chronic (12) Thrombocytopenia Status: Chronic (13) Neuropathy, peripheral Status: Chronic Qualifiers: History of Present Illness Date of Admission: 01/24/18 Chief Complaint: Fever, vomiting. The patient is a 67 year old F with complicated past medical history as mentioned above was transferred from the [facility] because of vomiting and fever. Patient was not able to provide good detailed history and she was poor informant. She mentioned that she was transferred from the [facility] because she has been vomiting and she was informed that she had a fever. Reportedly, patient had a spike of fever admission, and she had nausea and vomiting. She does have a history of chronic bilateral lower extremity lymphedema which was complicated by chronic bilateral leg wounds with delayed healing, skin laceration and recurrent infections and cellulitis. Patient was admitted back in Oct, 2017 for bilateral lower extremity cellulitis, bilateral leg nonhealing ulcers and cellulitis and she was discharged to [facility] on Levaquin. During that admission, wound culture from the both legs revealed Proteus, pseudomonas aeruginosa, staph and Burkholderia. She states that she has been having cough with clear sputum over the last 5-6 days as well. She denied worsening shortness of breath. She denies abdominal pain, constipation or diarrhea. She has a history of CAD status post CABG in 2007, has been on aspirin, Plavix, metoprolol and isosorbide mononitrate and she has been stable.. She has history of type 2 diabetes mellitus and she has been on hemoglobin insulin pre-meals 3 times daily as well as Lantus nightly, most recent hemoglobin A1c was from September, it was 6. She had a history of stage III chronic kidney disease of probably secondary to hypertensive and diabetic kidney disease and her baseline creatinine has been around 1.2-2 mg/dL , admission creatinine is 2.69 which is up from her baseline. She has history of chronic respiratory failure and she has been on oxygen at 2 L at the [facility]. In the emergency department, maximum temperature was 99.5, heart rate was stable, blood pressure stable, pulse ox is 91% on 4 L. Her routine blood work is remarkable for leukocytosis, hemoglobin of 9.1 g/dL, potassium 5.3 and creatinine of 2.69. His lactic acid is normal. His EKG revealed normal sinus rhythm with T-wave inversion in lateral chest leads, no acute ischemic changes. Chest x-ray revealed left lower lobe patchy of disease, infiltrates. She is being admitted for sepsis due to healthcare associated pneumonia as well as probable bilateral lower extremity cellulitis with nonhealing ulcers/wounds in context of history of chronic bilateral lower extremity lymphedema, skin maceration, nonhealing ulcers and recurrent infections and also found to have acute kidney injury on top of stage III chronic kidney disease and mild hyperkalemia. Past Medical History Past Medical History (Chronic Problems): Chronic Problems Ulcer of right lower extremity with fat layer exposed (Chronic) anterior lower extremity ulcer Venous insufficiency of both lower extremities (Chronic) Other specified peripheral vascular diseases (Chronic) Ulcer of left lower extremity with fat layer exposed (Chronic) Ulcer of right lower extremity with fat layer exposed (Chronic) Delayed wound healing (Chronic) Maceration of skin (Chronic) Acquired deformity of toe of both feet (Chronic) Type 2 diabetes mellitus with diabetic peripheral angiopathy without gangrene ( Chronic) Lymphedema in adult patient (Chronic) Noncompliance with treatment regimen (Chronic) 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) Aortic stenosis, mild (Chronic) Pulmonary arterial hypertension (Chronic) Pulmonary nodules (Chronic) Cholelithiasis (Chronic) Tricuspid regurgitation (Chronic) History of esophageal reflux (Chronic) History of hyperlipidemia (Chronic) History of hypertension (Chronic) S/P CABG (coronary artery bypass graft) (Chronic) Obesity (BMI 30.0-34.9) (Chronic) Stasis dermatitis of both legs (Chronic) 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) Thrombocytopenia (Chronic) Neuropathy, peripheral (Chronic) Allergies Penicillins Allergy (Verified 12/27/17 01:50) Rash rosiglitazone maleate [From Avandia] Allergy (Verified 12/27/17 01:50) Swelling & diarrhea simvastatin [From Zocor] Allergy (Verified 12/27/17 01:50) Muscle weakness atorvastatin calcium [From Lipitor] Adverse Reaction (Verified 12/27/17 01:50) Muscle weakness esomeprazole magnesium [From Nexium] Adverse Reaction (Verified 12/27/17 01:50) Diarrhea lansoprazole [From Prevacid] Adverse Reaction (Verified 12/27/17 01:50) Diarrhea Sulfa (Sulfonamide Antibiotics) Adverse Reaction (Verified 12/27/17 01:50) Nausea/Vom/Diarrhea from PCP office records Home Medications: Ambulatory Orders Medication Instructions Recorded Aspirin [Aspirin, Baby] 81 mg PO DAILY@0810/20/14 Ferrous Gluconate 325 mg PO DAILY@79910/21/14 Metoprolol Tartrate [Lopressor 100 mg PO BID 10/21/14 (beta apryl)] Pantoprazole Sodium [Protonix] 40 mg PO BID 10/21/14 Rosuvastatin Calcium [Crestor] 2.5 mg PO QHS 10/21/14 Nitroglycerin [Nitrostat] 0.4 mg SUBLINGUAL Q5M PRN 11/24/14 Gabapentin [Neurontin] 100 mg PO BID 07/02/15 Ergocalciferol [Vitamin D] 50,000 units PO SA 02/16/16 Niacinamide [Niacin] 500 mg PO BID 02/16/16 Montelukast Sodium [Singulair] 10 mg PO QHS 05/06/16 Ondansetron [Zofran Odt] 8 mg PO Q6H PRN PRN 03/31/17 Amlodipine [Norvasc] 5 mg PO DAILY 10/12/17 Clopidogrel Bisulfate [Plavix] 75 mg PO DAILY #30 tab 10/16/17 Isosorbide Mononitrate [Imdur] 60 mg PO DAILY #30 tab 10/16/17 Insulin Lispro [Humalog KwikPen] 15 unit SC TIDAC insuln.pen 12/30/17 Insulin Lispro [Humalog KwikPen] See Protocol SC ACHS insuln.pen 12/30/17 Alpha Lipoic Acid 600 mg PO QHS 01/24/18 Furosemide [Lasix] 40 mg PO DAILY 01/24/18 Insulin Glargine [Lantus SoloStar 45 units SC QHS 01/24/18 Pen] Surgical History: coronary bypass surgery, - - Right femoral bypass surgery, cochlear impants Psychiatric History: No pertinent psych hx ENGINEERING DIRECTOR History: No pertinent ENGINEERING DIRECTOR history Lives: Detention Smoking Status: Never smoker Alcohol: None Drugs: None - *Family History Sibling History Items: Heart Disease Maternal History Items: No pertinent history Paternal History Items: No pertinent history Review of Systems Constitutional: Reports: Fever, Weakness. Denies: Anorexia, Chills Eyes: Denies: Blurred vision, Double vision, Drainage, Redness HEENT: Denies: Difficulty Hearing, Dysphasia, Ear Pain, Eye Pain, Nasal Congestion, Sore Throat Cardiovascular: Denies: Chest Pain, Chest Pressure, Chest Tightness, Heaviness, Light Headedness, Palpitations, Syncope Respiratory: Reports: Cough, Sputum production. Denies: Pleuritic Pain, Shortness of Breath, Wheezing Gastrointestinal: Reports: Nausea, Vomiting. Denies: Abdominal Pain, Constipation, Diarrhea Genitourinary: Denies: Dysuria, Frequency, Hematuria Musculoskeletal: Reports: Leg Pain. Denies: Arm Pain, Back Pain Skin: Denies: Dryness, Rash Neurological: Denies: Balance problems, Double vision, Change in Speech, Slurred speech, Confusion, Headaches, Incoordination, Numbness Psychiatric: Denies: Anxiety, Depression Endocrine: Denies: Change in Body Habitus, Polydipsia VTE Information - Inpt Only VTE Present on Admission: No VTE Mechan Device Prophylaxis: None VTE Pharm Prophylaxis ordered?: Yes - Physical Exam General: Alert, Oriented x3, Cooperative, No apparent distress HEENT: Atraumatic, PERRLA, EOMI, Normocephalic Oral: Moist Mucosa, No Gingival or Mucosal Lesions/ Ulcerations Neck: Supple, No JVD, Negative Carotid Bruits, Trachea Midline, Thyroid Normal Size and Texture Lungs: No wheeze, Diminished, Rales, Rhonchi, Short of Breath, - - Decreased breath sounds at the bases, more on the right base, crackles. Cardiovascular: Regular rate, Regular Rhythm, Normal S1, Normal S2, No murmurs, PMI Normal Abdomen: Bowel Sounds Present, Soft, Non Tender, Non-Distended, No Hepato- splenomegaly, Obese Extremities: No clubbing, No cyanosis, - - Right leg: Erythema, swelling, skin maceration starting from just below the right knee down up to the toes, serous drainage, seeping, hot to palpation, tender. Left leg: Mild erythema and mild swelling extending from just below the left knee down to the toes, minimal serous drainage. Skin: No rashes, Ulcer/ Wound Lymphatic: No Cervical, Supraclavicular, or Inguinal Adenopathy Neurological: Cranial nerves II-XII grossly intact, Motor Exam 5/5 strength throughout Psych/Mental Status: Normal Affect, Appropriate, Alert and oriented to time, place, person, mood and affect Vital Signs Temp Pulse Resp BP Pulse Ox 99.5 F H 92 22 H 152/60 H 91 01/24/18 15:45 01/24/18 15:45 01/24/18 15:45 01/24/18 15:45 01/24/18 15:45 Oxygen Flow Rate (L/min) 4 Oxygen Delivery Method Nasal Cannula Weight: 218 lb 14.704 oz Body Mass Index (BMI) 33.3 Finger Stick Blood Glucose 262 Laboratory Tests Past 24 Hrs 01/24/18 01/24/18 01/24/18 14:45 14:45 14:45 WBC 21.0 H RBC 3.12 L Hgb 9.1 L Hct 30.7 L MCV 98.4 MCH 29.2 MCHC 29.6 L RDW 16.1 H RDW Differential 57.9 H Plt Count 174 MPV 9.9 Immature Gran % (Auto) 0.200 Neut % (Auto) 95.5 H Lymph % (Auto) 1.4 L [place] % (Auto) 2.9 Eos % (Auto) 0.0 Baso % (Auto) 0.0 Absolute Neuts (auto) 20.1 H Absolute Lymphs (auto) 0.30 L Total Counted Pending Sodium 142 Potassium 5.3 H Chloride 107 Carbon Dioxide 29.0 Anion Gap 6 BUN 72 H Creatinine 2.69 H Estim Creat Clear Calc 20.47 Est GFR (MDRD) Af Amer 23 L Est GFR (MDRD) Non-Af 19 L BUN/Creatinine Ratio 26.8 H Glucose 155 H Lactic Acid Pending Calcium 8.4 L Total Bilirubin 0.80 Direct Bilirubin 0.52 H AST 22 ALT 20 Alkaline Phosphatase 123 H Total Protein 7.1 Albumin 2.3 L Globulin 4.8 H Lipase 235 Urine Color Urine Clarity Urine pH Ur Specific [place] Urine Protein Urine Glucose (UA) Urine Ketones Urine Occult Blood Urine Nitrite Urine Bilirubin Urine Urobilinogen Ur Leukocyte Esterase Urine RBC Urine WBC Ur Squamous Epith Cells Urine Bacteria Urine Mucus 01/24/18 15:07 WBC RBC Hgb Hct MCV MCH MCHC RDW RDW Differential Plt Count MPV Immature Gran % (Auto) Neut % (Auto) Lymph % (Auto) [place] % (Auto) Eos % (Auto) Baso % (Auto) Absolute Neuts (auto) Absolute Lymphs (auto) Total Counted Sodium Potassium Chloride Carbon Dioxide Anion Gap BUN Creatinine Estim Creat Clear Calc Est GFR (MDRD) Af Amer Est GFR (MDRD) Non-Af BUN/Creatinine Ratio Glucose Lactic Acid Calcium Total Bilirubin Direct Bilirubin AST ALT Alkaline Phosphatase Total Protein Albumin Globulin Lipase Urine Color Pending Urine Clarity Pending Urine pH Pending Ur Specific [place] Pending Urine Protein Pending Urine Glucose (UA) Pending Urine Ketones Pending Urine Occult Blood Pending Urine Nitrite Pending Urine Bilirubin Pending Urine Urobilinogen Pending Ur Leukocyte Esterase Pending Urine RBC Pending Urine WBC Pending Ur Squamous Epith Cells Pending Urine Bacteria Pending Urine Mucus Pending Clinical Impression(s) from Imaging Studies Chest X-Ray 01/24/18 14:20 IMPRESSION: Interval development of bilateral patchy airspace opacities may relate with pulmonary edema or multifocal pneumonia. No pneumothorax. Assessment/Plan All Active Problems BRBPR (bright red blood per rectum) (Resolved) C. difficile colitis (Resolved) Hyperkalemia (Resolved) This is a 67 years old female patient transferred from the [facility] because of fever and vomiting and she was found to have right lower lobe infiltrate as well as questionable worsening bilateral lower extremity erythema and swelling in context of history of bilateral lower extremity lymphedema, recurrent cellulitis, nonhealing wounds and skin maceration and she was found to have healthcare associated pneumonia with sepsis, acute kidney injury on top of stage III chronic kidney disease as well as probable recurrent bilateral lower extremity, more on the right lower extremity, cellulitis, nonhealing ulcers and infected wounds. #1 sepsis: Secondary to healthcare associated pneumonia and probable recurrent bilateral lower extremity, more on the right side, cellulitis, diabetic nonhealing infected ulcers. Her lactic acid is normal. Her vital signs are stable, febrile. Blood and urine culture sent. Plan: Admit to PCU, cardiac monitoring, sputum culture, wound culture, follow blood and urine cultures, start IV vancomycin and aztreonam, gentle IV fluids for hydration, repeat CBC and BMP tomorrow morning, PT OT evaluation and treatment. #2 right lower lobe healthcare associated pneumonia: Chest x-ray reviewed. She does have leukocytosis, febrile, tachypneic. Lactic acid is normal. She is a [facility] resident and she was admitted couple of times in the last 3 months. Plan: Sputum culture, blood culture, urine culture, start IV vancomycin and aztreonam as above, bronchodilators, incentive spirometer, Mucinex twice daily, chest physiotherapy. #3 probable recurrent bilateral lower extremity leg cellulitis, diabetic nonhealing infected wounds and ulcers: She does have chronic bilateral lower extremity lymphedema, nonhealing ulcers with recurrent infections. At this time , her right leg is more swollen, more erythematous and hot to palpation. There is seeping and oozing with serous drainage on both legs. On Oct, 2017, she was admitted for the same reason and wound culture revealed Proteus, Pseudomonas, Burkholderia and staph, culture reviewed. Plan: Start IV vancomycin and aztreonam as above, wound care nurse consult. #4 acute kidney injury double stage III chronic disease: Baseline creatinine has been around 1.2-2 mg/dL. Admission creatinine is 2.69. It is likely because of infection and sepsis. Plan: Gentle IV fluids for hydration, input output chart, hold Lasix, repeat BMP tomorrow morning. #5 mild hyperkalemia: Potassium is 5.3. No acute changes. Plan: IV fluids, Kayexalate ?1, repeat BMP tomorrow morning. #6 CAD status post CABG: EKG reviewed, no acute ischemic changes. Patient has no chest pain. Continue aspirin, Plavix, statins, isosorbide mononitrate and metoprolol. #7 chronic respiratory failure: Normally, she is on oxygen at the [facility] at 2 L. At this time, she is on 4 L. She does not look to be in severe distress. Plan to treat underlying pneumonia, bronchodilators. #8 type 2 diabetes mellitus: ADA diet, Accu-Cheks, insulin sliding scale, continue Lantus and pre-meal Humalog. #9 hypertension: Blood pressure stable, continue Norvasc, metoprolol and isosorbide mononitrate. #10 DVT prophylaxis: Subcu heparin. Other chronic medical problems: #1 chronic bilateral venous insufficiency of both lower extremities/lymphedema. #2 pulmonary hypertension. #3 peripheral neuropathy. #4 hyperlipidemia. #5 GERD. This note was generated with [employer] dictation software. It may contain incorrect words, spelling, and punctuation that were not noted in checking the note before signing. Code Visit Inpatient E&M: 09120 Init Hosp L3
[2018-01-24 16:09] LABS: Color, Urine Yellow (Yellow); Glucose, Dipstick Normal (Normal); Ketone-Dipstick Negative (Negative); Leukocyte Esterase-Dipstick 500 /ul (Negative); Nitrite-Dipstick Negative (Negative); Occult Blood-Urine 50 /ul (Negative); Protein-Dipstick 500 mg/dl (Negative); Specific Gravity, Urine 1.015 (1.002-1.030); Urine Bilirubin Dipstick 1 mg/dL (Negative); Urine Clarity Cloudy (Clear); Urine Urobilinogen 1 mg/dl (Normal)
[2018-01-24 16:21] LABS: Bacteria 1+ /hpf (None Seen); Red Blood Cells-Urine 0-5 SEEN /hpf (0-5); Squamous Epithelial Cells - UA 0-5 SEEN /hpf (5-10); Transitional Epithelial - Ur 0 SEEN /hpf (0-5); White Blood Cells >100 SEEN /hpf (0-5); Yeast-Urine 2+ /hpf (None Seen)
--- NOTE | 2018-01-24 16:22 | ED.RN ---
LACTIC 2.0, DR. SINGH AWARE.
--- NOTE | 2018-01-24 16:42 | NURSING ---
CALLED [facility] IN [place] TO SEND PT.
[2018-01-24] MEDS: Acetaminophen 500 MG Tablet 1000 MG PO (16:56)
[2018-01-24] MEDS: 0.9% Normal Saline 1,000 ML 75 ML IV (18:33)
[2018-01-24] MEDS: Vancomycin IV 500 MG/100 ML BAG 100 MG IV (18:40)
[2018-01-24 19:12] LABS: BNP,B-Type NATRIURETIC PEPTIDE 551.1 pg/mL (0-100)
--- NOTE | 2018-01-24 19:22 | PCM.RX.CS ---
Consult Pharmacy has been consulted to manage selected antiobiotic: Vancomycin Type of Consult: New start Prior Doses of Antibiotics Received/Current Regimen: Vancomycin 1250mg IV x1 in ER 01/24/18 Labs: Sodium 142 mmol/L (136-145) 01/24/18 14:45 Potassium 5.3 mmol/L (3.5-5.1) H 01/24/18 14:45 Chloride 107 mmol/L (98-107) 01/24/18 14:45 Carbon Dioxide 29.0 mmol/L (21.0-32.0) 01/24/18 14:45 Anion Gap 6 (5-15) 01/24/18 14:45 BUN 72 mg/dL (7-18) H 01/24/18 14:45 Creatinine 2.69 mg/dL (0.55-1.02) H 01/24/18 14:45 Est GFR (MDRD) Af Amer 23 mL/min (>60) L 01/24/18 14:45 Est GFR (MDRD) Non-Af 19 mL/min (>60) L 01/24/18 14:45 BUN/Creatinine Ratio 26.8 RATIO (10-20) H 01/24/18 14:45 Glucose 155 mg/dL (74-106) H 01/24/18 14:45 Weight used for dosin kg Estimated Creatinine Clearance: 20ml/min Goal Trough: 15-20 mcg/mL Pharmacy Plan for Drug Dosing: Recommend Vancomycin 1000mg IV q24h startin 01/25/18 at 1700. Dose based off of her baseline srcr of 1.2-2. Trough to be drawn before 3rd dose Pharmacy Service will continue to monitor and adjust dosing as required. Follow-Up Labs: Trough Vancomycin Labs to be done on [date and time ordered]: trough on 01/26/18 at 1630
[2018-01-24] MEDS: Ipratropium/Albuterol Sulfate 3 ML AMPUL.NEB INHALATION (19:30)
[2018-01-24 19:39] LABS: Reflex Lactate? Y
[2018-01-24] MEDS: Sodium Polystyrene Sulfonate 15 GM/60 ML UDC 30 GM PO (20:19)
[2018-01-24 20:27] LABS: Lactic Acid 0.9 mmol/L (0.4-2.0)
[2018-01-24] MEDS: Niacin SA 500 MG Tablet PO (22:09)
[2018-01-24] MEDS: Rosuvastatin Calcium 5 MG Tablet 2.5 MG PO (22:09)
[2018-01-24] MEDS: guaiFENesin 1,200 MG Tablet 1200 MG PO (22:09)
[2018-01-24] MEDS: Pantoprazole Sodium 40 MG Tablet PO (22:09)
[2018-01-24] MEDS: Gabapentin 100 MG Capsule PO (22:09)
[2018-01-24] MEDS: Metoprolol Tartrate 100 MG Tablet PO (22:09)
[2018-01-24] MEDS: Heparin Injection (Vial) 5,000 UNIT/ML VIAL 5000 UNIT SC (22:09)
[2018-01-24] MEDS: Montelukast 10 MG Tablet PO (22:10)
[2018-01-24 22:21] LABS: Bedside Glucose 202 mg/dL (70-110)
[2018-01-24] MEDS: Insulin Lispro 100 UNIT/ML INSULN.PEN SQ (22:23)
[2018-01-25] VITALS (17 sets, daily range): BP systolic 112–147; BP diastolic 35–49; PULSE 77–96; RESP 18–25; TEMP 36.9–38.4; O2SAT 92–100
[2018-01-25] MEDS: Heparin Injection (Vial) 5,000 UNIT/ML VIAL 5000 UNIT SC ×3 (06:01→21:57)
[2018-01-25 06:26] LABS: Anion Gap 9 (5-15); BUN 68 mg/dL (7-18); BUN/Creat Ratio 31.9 RATIO (10-20); Calcium,Total 8.1 mg/dL (8.5-10.1); Chloride 110 mmol/L (98-107); Creatinine, Serum 2.13 mg/dL (0.55-1.02); EST Glomerular Filtration Rate 25 mL/min (>60); Est Glom Filt Rate - Afr Amer 30 mL/min (>60); Estimated Creatinine Clearance 25.85 ml/min; Glucose 166 mg/dL (74-106); Potassium 4.7 mmol/L (3.5-5.1); Sodium Level 147 mmol/L (136-145)
[2018-01-25] MEDS: Ipratropium/Albuterol Sulfate 3 ML AMPUL.NEB INHALATION ×2 (06:39→19:05)
[2018-01-25 06:46] LABS: Absolute Lymphocyte Count 0.45 X10^3/ul (0.83-4.51); Absolute Neutrophil Count 13.9 X10^3/uL (2.0-7.7); Basophil# 0.01 X10^3/uL; Basophil% 0.1 % (0-1); Eosinophil# 0.01 X10^3/uL; Eosinophils% 0.1 % (0-5); Hematocrit 27.9 % (37-47); Hemoglobin 8.2 g/dl (12.0-15.0); Lymphocyte # 0.45 X10^3/ul (4.0); Mean Corp Hgb Conc 29.4 g/gl (32-36); Mean Corpuscular Hgb 29.8 pg (27.0-32.0); Mean Corpuscular Volume 101.5 fL (81-99); Mean Platelet Vol. 9.9 fl (6.2-12.0); Monocyte# 0.48 X10^3/uL; Monocyte% 3.2 % (0-10); Neutrophil # 13.87 X10^3/uL (2.7-7.7); Neutrophil % 93.5 % (47-70); Platelet Count 149 K/mm3 (150-450); RBC Distribution Width CV 15.5 % (11.6-14.6); RBC Distribution Width SD 55.6 fl (35.1-43.9); Red Blood Count 2.75 M/mm3 (4.2-5.4); White Blood Count 14.8 K/mm3 (4.4-11.0)
[2018-01-25 06:55] LABS: Differential Indicated SCAN CRITERIA MET; POSITIVE COUNT NO; POSITIVE DIFFERENTIAL YES; POSITIVE MORPHOLOGY NO
[2018-01-25 07:18] LABS: Anisocytosis 3+; Differential Comment SCANNED; Hypochromasia 1+
--- NOTE | 2018-01-25 08:03 | PCM.PROGNOTE ---
Subjective: Chief complaint: Follow-up after admission for sepsis secondary to right lower lobe healthcare associated pneumonia probable recurrent bilateral lower extremity diabetic infected nonhealing ulcers/cellulitis and also found to have acute kidney injury double stage III chronic kidney disease. Patient seen and examined. No acute events overnight. She reported increasing difficulty breathing from her baseline. She is up to 6 L of oxygen. She still complaining of cough with minimal sputum. Denies fever chills. No chest pain or palpitations. This morning, she is afebrile, blood pressure noted are stable, pulse ox is 96% on 6 L. - Physical Exam General: Alert, Oriented x3, Cooperative, - - Moderately short of breath. HEENT: Atraumatic, PERRLA, EOMI, Normocephalic Oral: Moist Mucosa, No Gingival or Mucosal Lesions/ Ulcerations Neck: Supple, No JVD, Negative Carotid Bruits, Trachea Midline, Thyroid Normal Size and Texture Lungs: No wheeze, Diminished, Rhonchi, Short of Breath, - - Decreased breath sounds at the bases, more on the right base, rhonchi. Cardiovascular: Regular rate, Regular Rhythm, Normal S1, Normal S2, PMI Normal Abdomen: Bowel Sounds Present, Soft, Non Tender, Non-Distended, No Hepato-splenomegaly, Obese Extremities: No clubbing, No cyanosis - Right leg: Erythema, swelling, skin maceration starting from just below the right knee down up to the toes, serous drainage, seeping, hot to palpation, tender. Left leg: Mild erythema and mild swelling extending from just below the left knee down to the toes, minimal serous drainage. Skin: No rashes, Ulcer/ Wound Lymphatic: No Cervical, Supraclavicular, or Inguinal Adenopathy Neurological: Cranial nerves II-XII grossly intact, Neuro grossly intact Psych/Mental Status: Normal Affect, Appropriate, Alert and oriented to time, place, person, mood and affect Vital Signs Temp Pulse Resp BP Pulse Ox 99.4 F H 96 19 H 130/44 H 92 01/25/18 04:00 01/25/18 07:05 01/25/18 06:45 01/25/18 04:00 01/25/18 06:45 Oxygen Flow Rate (L/min) 6 Oxygen Delivery Method Nasal Cannula Weight: 211 lb 3.245 oz Body Mass Index (BMI) 32.1 Intake and Output for Last 24 Hours 01/23/18 01/24/18 01/25/18 23:59 23:59 23:59 Intake Total 302 / 302 1619 / 1619 Balance 302 / 302 1619 / 1619 Laboratory Tests Past 24 Hrs 01/24/18 01/25/18 01/25/18 19:50 05:35 05:35 WBC 14.8 H RBC 2.75 L Hgb 8.2 L Hct 27.9 L MCV 101.5 H MCH 29.8 MCHC 29.4 L RDW 15.5 H RDW Differential 55.6 H Plt Count 149 L MPV 9.9 Immature Gran % (Auto) 0.100 Neut % (Auto) 93.5 H Lymph % (Auto) 3.0 L [place] % (Auto) 3.2 Eos % (Auto) 0.1 Baso % (Auto) 0.1 Absolute Neuts (auto) 13.9 H Absolute Lymphs (auto) 0.45 L Total Counted Not Reportable Differential Comment SCANNED Hypochromasia 1+ Anisocytosis 3+ Sodium 147 H Potassium 4.7 Chloride 110 H Carbon Dioxide 28.0 Anion Gap 9 BUN 68 H Creatinine 2.13 H Estim Creat Clear Calc 25.85 Est GFR (MDRD) Af Amer 30 L Est GFR (MDRD) Non-Af 25 L BUN/Creatinine Ratio 31.9 H Glucose 166 H Lactic Acid 0.9 Calcium 8.1 L POC Glucose 01/24/18 22:04 POC Glucose 202 H Medical Necessity - Tobacco Use Smoking Status: Never smoker Assessment/Plan All Active Problems BRBPR (bright red blood per rectum) (Resolved) C. difficile colitis (Resolved) Hyperkalemia (Resolved) This is a 67 years old female patient transferred from the [facility] because of fever and vomiting and she was found to have right lower lobe infiltrate as well as questionable worsening bilateral lower extremity erythema and swelling in context of history of bilateral lower extremity lymphedema, recurrent cellulitis, nonhealing wounds and skin maceration and she was found to have healthcare associated pneumonia with sepsis, acute kidney injury on top of stage III chronic kidney disease as well as probable recurrent bilateral lower extremity, more on the right lower extremity, cellulitis, nonhealing ulcers and infected wounds. #1 sepsis: She is on IV antibiotics with aztreonam and vancomycin. She has been afebrile overnight, white blood cell count is trending down. Blood, urine and wound cultures are pending. It is multifactorial secondary to pneumonia and probable recurrent bilateral lower extremity, more on the right side, cellulitis, diabetic nonhealing infected ulcers and also found to have acute cystitis on urinalysis. Her lactic acid is normal. Plan to continue same treatment. #2 right lower lobe healthcare associated pneumonia: She is on IV vancomycin and aztreonam. Her white blood cell count is trending down. Her oxygen requirement has been increasing. Cultures are pending. Plan to stop IV fluids, resume Lasix, continue IV antibiotics, follow cultures. #3 probable recurrent bilateral lower extremity leg cellulitis, diabetic nonhealing infected wounds and ulcers: Again, she is on IV vancomycin and aztreonam. She has been afebrile, white blood cell count is trending down as above. On Oct, 2017, she was admitted for the same reason and wound culture revealed Proteus, Pseudomonas, Burkholderia and staph, culture reviewed. Plan: Continue same treatment, consult infectious disease. #4 acute cystitis: Urinalysis revealed cloudy urine, positive for leukocyte esterase, there was more than 100 WBCs, 1+ bacteria. She is already on IV vancomycin and aztreonam. Urine culture sent. #5 acute kidney injury double stage III chronic disease: Patient was on IV fluids. Creatinine came down to 2.13 but her oxygen requirement has been increasing. She does have history of diastolic CHF. Plan to DC IV fluids, resume Lasix, repeat BMP tomorrow morning. #6 mild hyperkalemia: Potassium is 5.3. No EKG acute changes. She received 1 dose of Kayexalate. Today's potassium is 4.7. #7 CAD status post CABG: EKG reviewed, no acute ischemic changes. Patient has no chest pain. Continue aspirin, Plavix, statins, isosorbide mononitrate and metoprolol. #8 chronic respiratory failure: Normally, she is on oxygen at the [facility] at 2 L. At this time, she is on 6 L. Plan as above to DC IV fluids, resume oral Lasix. #9 type 2 diabetes mellitus: Continue ADA diet, Accu-Cheks, insulin sliding scale, continue Lantus and pre-meal Humalog. #10 hypertension: Blood pressure stable, continue Norvasc, metoprolol and isosorbide mononitrate. #11 DVT prophylaxis: Subcu heparin. Other chronic medical problems: #1 chronic bilateral venous insufficiency of both lower extremities/lymphedema. #2 pulmonary hypertension. #3 peripheral neuropathy. #4 hyperlipidemia. #5 GERD. This note was generated with [employer] software. It may contain incorrect words, spelling, and punctuation that were not noted in checking the note before signing. Code Visit Inpatient E&M: 38449 Subs Hosp L3
--- NOTE | 2018-01-25 08:09 | PN_ITS ---
Subjective: Chief complaint: Follow-up after admission for sepsis secondary to right lower lobe healthcare associated pneumonia probable recurrent bilateral lower extremity diabetic infected nonhealing ulcers/cellulitis and also found to have acute kidney injury double stage III chronic kidney disease. Patient seen and examined. No acute events overnight. She reported increasing difficulty breathing from her baseline. She is up to 6 L of oxygen. She still complaining of cough with minimal sputum. Denies fever chills. No chest pain or palpitations. This morning, she is afebrile, blood pressure noted are stable , pulse ox is 96% on 6 L. - Physical Exam General: Alert, Oriented x3, Cooperative, - - Moderately short of breath. HEENT: Atraumatic, PERRLA, EOMI, Normocephalic Oral: Moist Mucosa, No Gingival or Mucosal Lesions/ Ulcerations Neck: Supple, No JVD, Negative Carotid Bruits, Trachea Midline, Thyroid Normal Size and Texture Lungs: No wheeze, Diminished, Rhonchi, Short of Breath, - - Decreased breath sounds at the bases, more on the right base, rhonchi. Cardiovascular: Regular rate, Regular Rhythm, Normal S1, Normal S2, PMI Normal Abdomen: Bowel Sounds Present, Soft, Non Tender, Non-Distended, No Hepato- splenomegaly, Obese Extremities: No clubbing, No cyanosis - Right leg: Erythema, swelling, skin maceration starting from just below the right knee down up to the toes, serous drainage, seeping, hot to palpation, tender. Left leg: Mild erythema and mild swelling extending from just below the left knee down to the toes, minimal serous drainage. Skin: No rashes, Ulcer/ Wound Lymphatic: No Cervical, Supraclavicular, or Inguinal Adenopathy Neurological: Cranial nerves II-XII grossly intact, Neuro grossly intact Psych/Mental Status: Normal Affect, Appropriate, Alert and oriented to time, place, person, mood and affect Vital Signs Temp Pulse Resp BP Pulse Ox 99.4 F H 96 19 H 130/44 H 92 01/25/18 04:00 01/25/18 07:05 01/25/18 06:45 01/25/18 04:00 01/25/18 06:45 Oxygen Flow Rate (L/min) 6 Oxygen Delivery Method Nasal Cannula Weight: 211 lb 3.245 oz Body Mass Index (BMI) 32.1 Intake and Output for Last 24 Hours 01/23/18 01/24/18 01/25/18 23:59 23:59 23:59 Intake Total 302 / 302 1619 / 1619 Balance 302 / 302 1619 / 1619 Laboratory Tests Past 24 Hrs 01/24/18 01/25/18 01/25/18 19:50 05:35 05:35 WBC 14.8 H RBC 2.75 L Hgb 8.2 L Hct 27.9 L MCV 101.5 H MCH 29.8 MCHC 29.4 L RDW 15.5 H RDW Differential 55.6 H Plt Count 149 L MPV 9.9 Immature Gran % (Auto) 0.100 Neut % (Auto) 93.5 H Lymph % (Auto) 3.0 L [place] % (Auto) 3.2 Eos % (Auto) 0.1 Baso % (Auto) 0.1 Absolute Neuts (auto) 13.9 H Absolute Lymphs (auto) 0.45 L Total Counted Not Reportable Differential Comment SCANNED Hypochromasia 1+ Anisocytosis 3+ Sodium 147 H Potassium 4.7 Chloride 110 H Carbon Dioxide 28.0 Anion Gap 9 BUN 68 H Creatinine 2.13 H Estim Creat Clear Calc 25.85 Est GFR (MDRD) Af Amer 30 L Est GFR (MDRD) Non-Af 25 L BUN/Creatinine Ratio 31.9 H Glucose 166 H Lactic Acid 0.9 Calcium 8.1 L POC Glucose 01/24/18 22:04 POC Glucose 202 H Medical Necessity - Tobacco Use Smoking Status: Never smoker Assessment/Plan All Active Problems BRBPR (bright red blood per rectum) (Resolved) C. difficile colitis (Resolved) Hyperkalemia (Resolved) This is a 67 years old female patient transferred from the long term because of fever and vomiting and she was found to have right lower lobe infiltrate as well as questionable worsening bilateral lower extremity erythema and swelling in context of history of bilateral lower extremity lymphedema, recurrent cellulitis, nonhealing wounds and skin maceration and she was found to have healthcare associated pneumonia with sepsis, acute kidney injury on top of stage III chronic kidney disease as well as probable recurrent bilateral lower extremity, more on the right lower extremity, cellulitis, nonhealing ulcers and infected wounds. #1 sepsis: She is on IV antibiotics with aztreonam and vancomycin. She has been afebrile overnight, white blood cell count is trending down. Blood, urine and wound cultures are pending. It is multifactorial secondary to pneumonia and probable recurrent bilateral lower extremity, more on the right side, cellulitis, diabetic nonhealing infected ulcers and also found to have acute cystitis on urinalysis. Her lactic acid is normal. Plan to continue same treatment. #2 right lower lobe healthcare associated pneumonia: She is on IV vancomycin and aztreonam. Her white blood cell count is trending down. Her oxygen requirement has been increasing. Cultures are pending. Plan to stop IV fluids , resume Lasix, continue IV antibiotics, follow cultures. #3 probable recurrent bilateral lower extremity leg cellulitis, diabetic nonhealing infected wounds and ulcers: Again, she is on IV vancomycin and aztreonam. She has been afebrile, white blood cell count is trending down as above. On Oct, 2017, she was admitted for the same reason and wound culture revealed Proteus, Pseudomonas, Burkholderia and staph, culture reviewed. Plan: Continue same treatment, consult infectious disease. #4 acute cystitis: Urinalysis revealed cloudy urine, positive for leukocyte esterase, there was more than 100 WBCs, 1+ bacteria. She is already on IV vancomycin and aztreonam. Urine culture sent. #5 acute kidney injury double stage III chronic disease: Patient was on IV fluids. Creatinine came down to 2.13 but her oxygen requirement has been increasing. She does have history of diastolic CHF. Plan to DC IV fluids, resume Lasix, repeat BMP tomorrow morning. #6 mild hyperkalemia: Potassium is 5.3. No EKG acute changes. She received 1 dose of Kayexalate. Today's potassium is 4.7. #7 CAD status post CABG: EKG reviewed, no acute ischemic changes. Patient has no chest pain. Continue aspirin, Plavix, statins, isosorbide mononitrate and metoprolol. #8 chronic respiratory failure: Normally, she is on oxygen at the long term at 2 L. At this time, she is on 6 L. Plan as above to DC IV fluids, resume oral Lasix. #9 type 2 diabetes mellitus: Continue ADA diet, Accu-Cheks, insulin sliding scale, continue Lantus and pre-meal Humalog. #10 hypertension: Blood pressure stable, continue Norvasc, metoprolol and isosorbide mononitrate. #11 DVT prophylaxis: Subcu heparin. Other chronic medical problems: #1 chronic bilateral venous insufficiency of both lower extremities/lymphedema. #2 pulmonary hypertension. #3 peripheral neuropathy. #4 hyperlipidemia. #5 GERD. This note was generated with [id number] software. It may contain incorrect words, spelling, and punctuation that were not noted in checking the note before signing. Code Visit Inpatient E&M: 76553 Subs Hosp L3
[2018-01-25 08:16] LABS: Bedside Glucose 158 mg/dL (70-110)
[2018-01-25] MEDS: Aspirin 81 MG TAB.CHEW PO (08:32)
[2018-01-25] MEDS: Furosemide 40 MG Tablet PO (08:32)
[2018-01-25] MEDS: amLODIPine 5 MG Tablet PO (08:32)
[2018-01-25] MEDS: Clopidogrel Bisulfate 75 MG Tablet PO (08:32)
[2018-01-25] MEDS: Pantoprazole Sodium 40 MG Tablet PO ×2 (08:32→21:55)
[2018-01-25] MEDS: Isosorbide Mononitrate 60 MG Tablet PO (08:33)
[2018-01-25] MEDS: Niacin SA 500 MG Tablet PO ×2 (08:33→21:56)
[2018-01-25] MEDS: guaiFENesin 1,200 MG Tablet 1200 MG PO ×2 (08:33→21:56)
[2018-01-25] MEDS: Metoprolol Tartrate 100 MG Tablet PO ×2 (08:33→22:02)
[2018-01-25] MEDS: Gabapentin 100 MG Capsule PO ×2 (08:33→21:55)
[2018-01-25] MEDS: Ferrous Gluconate 325 MG Tablet PO (08:34)
[2018-01-25] MEDS: Insulin Lispro 100 UNIT/ML INSULN.PEN SQ ×3 (09:34→21:51)
[2018-01-25] MEDS: Insulin Lispro 100 UNIT/ML INSULN.PEN 15 UNIT SC ×3 (09:34→17:43)
--- NOTE | 2018-01-25 09:36 | NURSING ---
wound photo: bilateral lower legs
[2018-01-25 11:41] LABS: Bedside Glucose 138 mg/dL (70-110)
--- NOTE | 2018-01-25 12:23 | CON.PCM_ITS ---
Problem List (1) Maceration of skin Status: Chronic Reason for Consult: cellulitis Consulted by: Dr. Rosado History of Present Illness: The patient is a 67 year old F with chronic BLE edema and admission in October with cellulitis and cx (+) for PsA, proteus, CoNS, and burkholderia who presented with several weeks of BLE ulceration, redness, pain, swelling, and redness. No drainage. No recent abx. Also c/o 5-6 days of cough with clear/white sputum associated with SOB and fever. Came to ED, fever to 101.3, admitted on vanc/ aztreonam. Feeling better today, less SOB, less pain in legs. Full ROS performed and neg except as noted above. - Medical History Past Medical History (Chronic Problems): Chronic Problems Ulcer of right lower extremity with fat layer exposed (Chronic) anterior lower extremity ulcer Venous insufficiency of both lower extremities (Chronic) Other specified peripheral vascular diseases (Chronic) Ulcer of left lower extremity with fat layer exposed (Chronic) Ulcer of right lower extremity with fat layer exposed (Chronic) Delayed wound healing (Chronic) Maceration of skin (Chronic) Acquired deformity of toe of both feet (Chronic) Type 2 diabetes mellitus with diabetic peripheral angiopathy without gangrene ( Chronic) Lymphedema in adult patient (Chronic) Noncompliance with treatment regimen (Chronic) 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) Aortic stenosis, mild (Chronic) Pulmonary arterial hypertension (Chronic) Pulmonary nodules (Chronic) Cholelithiasis (Chronic) Tricuspid regurgitation (Chronic) History of esophageal reflux (Chronic) History of hyperlipidemia (Chronic) History of hypertension (Chronic) S/P CABG (coronary artery bypass graft) (Chronic) Obesity (BMI 30.0-34.9) (Chronic) Stasis dermatitis of both legs (Chronic) 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) Thrombocytopenia (Chronic) Neuropathy, peripheral (Chronic) Allergies/Adverse Reactions: Allergies Penicillins Allergy (Verified 12/27/17 01:50) Rash rosiglitazone maleate [From Avandia] Allergy (Verified 12/27/17 01:50) Swelling & diarrhea simvastatin [From Zocor] Allergy (Verified 12/27/17 01:50) Muscle weakness atorvastatin calcium [From Lipitor] Adverse Reaction (Verified 12/27/17 01:50) Muscle weakness esomeprazole magnesium [From Nexium] Adverse Reaction (Verified 12/27/17 01:50) Diarrhea lansoprazole [From Prevacid] Adverse Reaction (Verified 12/27/17 01:50) Diarrhea Sulfa (Sulfonamide Antibiotics) Adverse Reaction (Verified 12/27/17 01:50) Nausea/Vom/Diarrhea from PCP office records Home Medications: Ambulatory Orders Medication Instructions Recorded Aspirin [Aspirin, Baby] 81 mg PO DAILY@0800 10/20/14 Ferrous Gluconate 325 mg PO DAILY@0800 10/21/14 Metoprolol Tartrate [Lopressor 100 mg PO BID 10/21/14 (beta apryl)] Pantoprazole Sodium [Protonix] 40 mg PO BID 10/21/14 Rosuvastatin Calcium [Crestor] 2.5 mg PO QHS 10/21/14 Nitroglycerin [Nitrostat] 0.4 mg SUBLINGUAL Q5M PRN 11/24/14 Gabapentin [Neurontin] 100 mg PO BID 07/02/15 Ergocalciferol [Vitamin D] 50,000 units PO SA 02/16/16 Niacinamide [Niacin] 500 mg PO BID 02/16/16 Montelukast Sodium [Singulair] 10 mg PO QHS 05/06/16 Ondansetron [Zofran Odt] 8 mg PO Q6H PRN PRN 03/31/17 Amlodipine [Norvasc] 5 mg PO DAILY 10/12/17 Clopidogrel Bisulfate [Plavix] 75 mg PO DAILY #30 tab 10/16/17 Isosorbide Mononitrate [Imdur] 60 mg PO DAILY #30 tab 10/16/17 Insulin Lispro [Humalog KwikPen] 15 unit SC TIDAC insuln.pen 12/30/17 Insulin Lispro [Humalog KwikPen] See Protocol SC ACHS insuln.pen 12/30/17 Alpha Lipoic Acid 600 mg PO QHS 01/24/18 Furosemide [Lasix] 40 mg PO DAILY 01/24/18 Insulin Glargine [Lantus SoloStar 45 units SC QHS 01/24/18 Pen] - Social History SMOKING STATUS:: Former smoker Vital Signs Temp Pulse Resp BP Pulse Ox 100.2 F H 81 25 H 131/46 H 97 01/25/18 10:30 01/25/18 11:07 01/25/18 10:30 01/25/18 10:30 01/25/18 10:30 Oxygen Flow Rate (L/min) 6 Oxygen Delivery Method Nasal Cannula Weight: 95.8 kg Body Mass Index (BMI) 32.1 Laboratory Tests Past 24 Hrs 01/24/18 01/25/18 01/25/18 19:50 05:35 05:35 WBC 14.8 H RBC 2.75 L Hgb 8.2 L Hct 27.9 L MCV 101.5 H MCH 29.8 MCHC 29.4 L RDW 15.5 H RDW Differential 55.6 H Plt Count 149 L MPV 9.9 Immature Gran % (Auto) 0.100 Neut % (Auto) 93.5 H Lymph % (Auto) 3.0 L [place] % (Auto) 3.2 Eos % (Auto) 0.1 Baso % (Auto) 0.1 Absolute Neuts (auto) 13.9 H Absolute Lymphs (auto) 0.45 L Total Counted Not Reportable Differential Comment SCANNED Hypochromasia 1+ Anisocytosis 3+ Sodium 147 H Potassium 4.7 Chloride 110 H Carbon Dioxide 28.0 Anion Gap 9 BUN 68 H Creatinine 2.13 H Estim Creat Clear Calc 25.85 Est GFR (MDRD) Af Amer 30 L Est GFR (MDRD) Non-Af 25 L BUN/Creatinine Ratio 31.9 H Glucose 166 H Lactic Acid 0.9 Calcium 8.1 L - Other Studies Radiology: [] reviewed Other Studies: [] Route of nutrition/ use of supplements: [] Nutritional Intake: [] IV Site: [] Blanc Catheter: [] - Physical Exam General: Alert, Oriented x3, Cooperative, No apparent distress HEENT: Atraumatic, PERRLA, EOMI Neck: Supple, No Nodes Lungs: Rhonchi Cardiovascular: Regular rate, Regular Rhythm Abdomen: Soft, Non Tender, Non-Distended Extremities: Edema Skin: Ulcer/ Wound - BLE with redness, maceration, mild tenderness IV Site: Peripheral Neurological: Cranial nerves II-XII grossly intact - Assessment/Plan Antibiotics: [] Assessment/Plan: [] sepsis (fever, leukocytosis) - covering for CAP, BLE cellulitis. UA with heavy pyuria as well. Cxs pending. Narrow vanc/aztreonam to cefepime which she has tolerated in the past. Thank you, will follow.
--- NOTE | 2018-01-25 14:05 | CASEMGMT ---
Social Work Pt is currently a resident at [facility] at a skilled level of care. SW spoke with pt and she confirms she plans to return to [facility] upon d/c with a plan to eventually return home. Phone call to Vicky at [facility] and they do plan to accept pt back and a new precert will be needed. Precert to be started today. Referral information faxed. Pt has no spinning bath person listed on her face sheet. SW inquired if pt would like to list someone as an emergency contact and pt declined but did state that this is something she will need to be thinking about. SW will continue to follow for SNF placement. Plan: [facility], pending insurance auth AYDIN Lloyd
[2018-01-25 16:40] LABS: Bedside Glucose 154 mg/dL (70-110)
[2018-01-25] MEDS: Acetaminophen 325 MG Tablet 650 MG PO (17:55)
[2018-01-25] MEDS: Montelukast 10 MG Tablet PO (21:56)
[2018-01-25] MEDS: Rosuvastatin Calcium 5 MG Tablet 2.5 MG PO (22:02)
[2018-01-26] VITALS (21 sets, daily range): BP systolic 125–164; BP diastolic 40–64; PULSE 69–104; RESP 16–20; TEMP -13.1–37.2; O2SAT 94–100
[2018-01-26 01:11] LABS: Bedside Glucose 244 mg/dL (70-110)
[2018-01-26] MEDS: Ipratropium/Albuterol Sulfate 3 ML AMPUL.NEB INHALATION ×3 (01:25→18:43)
[2018-01-26 05:56] LABS: Absolute Lymphocyte Count 0.53 X10^3/ul (0.83-4.51); Absolute Neutrophil Count 10.5 X10^3/uL (2.0-7.7); Basophil# 0.01 X10^3/uL; Basophil% 0.1 % (0-1); Eosinophil# 0.12 X10^3/uL; Hematocrit 25.6 % (37-47); Hemoglobin 7.6 g/dl (12.0-15.0); Lymphocyte # 0.53 X10^3/ul (4.0); Lymphocyte % 4.5 % (19-41); Mean Corp Hgb Conc 29.7 g/gl (32-36); Mean Corpuscular Hgb 29.9 pg (27.0-32.0); Mean Corpuscular Volume 100.8 fL (81-99); Mean Platelet Vol. 9.7 fl (6.2-12.0); Monocyte# 0.51 X10^3/uL; Monocyte% 4.4 % (0-10); Neutrophil # 10.51 X10^3/uL (2.7-7.7); Neutrophil % 89.7 % (47-70); Platelet Count 149 K/mm3 (150-450); RBC Distribution Width CV 15.2 % (11.6-14.6); RBC Distribution Width SD 53.4 fl (35.1-43.9); Red Blood Count 2.54 M/mm3 (4.2-5.4); White Blood Count 11.7 K/mm3 (4.4-11.0)
[2018-01-26 06:03] LABS: Anion Gap 10 (5-15); BUN 70 mg/dL (7-18); BUN/Creat Ratio 32.6 RATIO (10-20); Calcium,Total 8.1 mg/dL (8.5-10.1); Chloride 107 mmol/L (98-107); Creatinine, Serum 2.15 mg/dL (0.55-1.02); EST Glomerular Filtration Rate 24 mL/min (>60); Est Glom Filt Rate - Afr Amer 29 mL/min (>60); Estimated Creatinine Clearance 25.61 ml/min; Glucose 148 mg/dL (74-106); Potassium 4.2 mmol/L (3.5-5.1); Sodium Level 145 mmol/L (136-145)
[2018-01-26 06:04] LABS: Differential Indicated SCAN CRITERIA MET; POSITIVE COUNT NO; POSITIVE DIFFERENTIAL YES; POSITIVE MORPHOLOGY NO
[2018-01-26] MEDS: Heparin Injection (Vial) 5,000 UNIT/ML VIAL 5000 UNIT SC ×3 (06:33→22:30)
[2018-01-26 06:40] LABS: Bedside Glucose 157 mg/dL (70-110)
[2018-01-26] MEDS: Acetaminophen 325 MG Tablet 650 MG PO (06:40)
[2018-01-26 06:47] LABS: Differential Comment SCANNED
--- NOTE | 2018-01-26 07:42 | EKG12_ITS ---
Test Reason : CP Blood Pressure : / mmHG Vent. Rate : 082 BPM Atrial Rate : 082 BPM P-R Int : 124 ms QRS Dur : 074 ms QT Int : 334 ms P-R-T Axes : 045 021 195 degrees QTc Int : 390 ms Normal sinus rhythm ST & T wave abnormality, consider inferior ischemia ST & T wave abnormality, consider anterolateral ischemia Abnormal ECG Confirmed by VIOLETTE CHANCE, VIKTOR ([id number]), editor continuity and script PROMISE DICKINSON ([id number]) on 02/01/2018 4:02:58 PM Referred By: Bigg ALMARAZ Confirmed By:VIKTOR OAKES MD
[2018-01-26] MEDS: Insulin Lispro 100 UNIT/ML INSULN.PEN SQ ×4 (07:50→22:31)
[2018-01-26] MEDS: Ferrous Gluconate 325 MG Tablet PO (07:50)
[2018-01-26] MEDS: Aspirin 81 MG TAB.CHEW PO (07:50)
[2018-01-26] MEDS: Insulin Lispro 100 UNIT/ML INSULN.PEN 15 UNIT SC ×3 (07:51→16:34)
--- NOTE | 2018-01-26 07:54 | PCM.PROGNOTE ---
Subjective: Chief complaint:Chief complaint: Follow-up after admission for sepsis secondary to right lower lobe healthcare associated pneumonia probable recurrent bilateral lower extremity diabetic infected nonhealing ulcers/cellulitis and also found to have acute kidney injury double stage III chronic kidney disease. Today, she developed acute on chronic anemia. Patient seen and examined. No acute events overnight. This morning, she complained of chest pain but not resolved. She mentioned her breathing is getting better. Denies fever chills. Still having pain in both legs. She remained afebrile, blood pressure and heart rate are stable, pulse ox is 95% on 4 L, oxygen requirement has been decreasing. - Physical Exam General: Alert, Oriented x3, Cooperative, No apparent distress HEENT: Atraumatic, PERRLA, EOMI, Normocephalic Oral: Moist Mucosa, No Gingival or Mucosal Lesions/ Ulcerations Neck: Supple, No JVD, Negative Carotid Bruits, Trachea Midline, Thyroid Normal Size and Texture Lungs: No wheeze, No rales, Diminished, Rhonchi, - - Decreased breath sounds on the right base, rhonchi. Cardiovascular: Regular rate, Regular Rhythm, Normal S1, Normal S2, Murmur - Systolic murmur. Abdomen: Bowel Sounds Present, Soft, Non Tender, Non-Distended, No Hepato-splenomegaly, Obese Extremities: No clubbing, No cyanosis, Edema - Edema, lymphedema, stasis dermatitis, scaling, seeping, erythema and swelling of both legs from just below the knee down to the toes. Skin: No rashes Lymphatic: No Cervical, Supraclavicular, or Inguinal Adenopathy Neurological: Cranial nerves II-XII grossly intact, Motor Exam 5/5 strength throughout Psych/Mental Status: Normal Affect, Appropriate Vital Signs Temp Pulse Resp BP Pulse Ox 98.5 F 81 20 H 130/50 H 95 01/26/18 02:00 01/26/18 07:11 01/26/18 05:40 01/26/18 02:00 01/26/18 05:40 Oxygen Flow Rate (L/min) 4 Oxygen Delivery Method Nasal Cannula Weight: 211 lb 3.245 oz Body Mass Index (BMI) 32.1 Intake and Output for Last 24 Hours 01/24/18 01/25/18 01/26/18 23:59 23:59 23:59 Intake Total 302 / 302 2563 / 2563 400 / 400 Balance 302 / 302 2563 / 2563 400 / 400 Microbiology Past 72 Hours 01/24/18 18:40 Gram Stain - Final Wound - Leg Wound Culture - Preliminary Streptococcus group C Laboratory Tests Past 24 Hrs 01/26/18 01/26/18 05:05 05:05 WBC 11.7 H RBC 2.54 L Hgb 7.6 L Hct 25.6 L MCV 100.8 H MCH 29.9 MCHC 29.7 L RDW 15.2 H RDW Differential 53.4 H Plt Count 149 L MPV 9.7 Immature Gran % (Auto) 0.300 Neut % (Auto) 89.7 H Lymph % (Auto) 4.5 L [place] % (Auto) 4.4 Eos % (Auto) 1.0 Baso % (Auto) 0.1 Absolute Neuts (auto) 10.5 H Absolute Lymphs (auto) 0.53 L Total Counted Not Reportable Differential Comment SCANNED Sodium 145 Potassium 4.2 Chloride 107 Carbon Dioxide 28.0 Anion Gap 10 BUN 70 H Creatinine 2.15 H Estim Creat Clear Calc 25.61 Est GFR (MDRD) Af Amer 29 L Est GFR (MDRD) Non-Af 24 L BUN/Creatinine Ratio 32.6 H Glucose 148 H Calcium 8.1 L POC Glucose 01/26/18 01/25/18 01/25/18 06:29 21:46 16:15 POC Glucose 157 H 244 H 154 H 01/25/18 01/25/18 11:28 07:09 POC Glucose 138 H 158 H Medical Necessity - Tobacco Use Smoking Status: Never smoker Assessment/Plan All Active Problems BRBPR (bright red blood per rectum) (Resolved) C. difficile colitis (Resolved) Hyperkalemia (Resolved) This is a 67 years old female patient transferred from the [place] [facility] because of fever and vomiting and she was found to have right lower lobe infiltrate as well as questionable worsening bilateral lower extremity erythema and swelling in context of history of bilateral lower extremity lymphedema, recurrent cellulitis, nonhealing wounds and skin maceration and she was found to have healthcare associated pneumonia with sepsis, acute kidney injury on top of stage III chronic kidney disease as well as probable recurrent bilateral lower extremity, more on the right lower extremity, cellulitis, nonhealing ulcers and infected wounds. #1 sepsis: She is on IV cefepime. IV vancomycin and aztreonam discontinued. She has been afebrile overnight, white blood cell count is trending down. Blood cultures pending urine culture showed no growth. Wound culture showed group C streptococcus, final is pending. Plan to continue same treatment. #2 right lower lobe healthcare associated pneumonia: Started on IV cefepime as above. Her white blood cell count is trending down. Urine culture showed no growth. Blood culture is pending. Her oxygen requirement has been decreasing, she is down to 4 L and pulse ox is 95%. Plan to continue same treatment. #3 probable recurrent bilateral lower extremity diabetic leg cellulitis: Again, she is on IV cefepime. Wound culture revealed group C streptococcus, final is pending. I spoke with the wound care nurse who knows the patient very well and she stated that her wounds and legs actually looks much better, no active ulcers but she has skin maceration, erythema and swelling as well as seeping. Plan to continue same treatment. #4 acute cystitis: She is on IV cefepime. Urinalysis revealed cloudy urine, positive for leukocyte esterase, there was more than 100 WBCs, 1+ bacteria. Urine culture showed no growth. #5 acute kidney injury double stage III chronic disease: IV fluids discontinued because of increasing oxygen requirement. Today's creatinine is 2.15.. She does have history of diastolic CHF. Serum creatinine stable. #6 acute on chronic anemia: Today's hemoglobin is 7.6 g/dL. No evidence of obvious active bleeding. Plan to transfuse repeat CBC tomorrow morning. #6 mild hyperkalemia: Potassium is 5.3. No EKG acute changes. She received 1 dose of Kayexalate. Today's potassium is 4.2. #7 CAD status post CABG: EKG reviewed, no acute ischemic changes. Patient has no chest pain. Continue aspirin, Plavix, statins, isosorbide mononitrate and metoprolol. #8 chronic respiratory failure: Normally, she is on oxygen at the [place] [facility] at 2 L. At this time, she is on4 L, improving. #9 type 2 diabetes mellitus: Blood sugar stable, continue ADA diet, Accu-Cheks, insulin sliding scale, continue Lantus and pre-meal Humalog. #10 hypertension: Blood pressure stable, continue Norvasc, metoprolol and isosorbide mononitrate. #11 DVT prophylaxis: Subcu heparin. Other chronic medical problems: #1 chronic bilateral venous insufficiency of both lower extremities/lymphedema. #2 pulmonary hypertension. #3 peripheral neuropathy. #4 hyperlipidemia. #5 GERD. This note was generated with [employer] software. It may contain incorrect words, spelling, and punctuation that were not noted in checking the note before signing. Code Visit Inpatient E&M: 96116 Subs Hosp L2
[2018-01-26] MEDS: Pantoprazole Sodium 40 MG Tablet PO ×2 (10:10→22:29)
[2018-01-26] MEDS: Metoprolol Tartrate 100 MG Tablet PO ×2 (10:11→22:29)
[2018-01-26] MEDS: Gabapentin 100 MG Capsule PO ×2 (10:11→22:29)
[2018-01-26] MEDS: Furosemide 40 MG Tablet PO (10:11)
[2018-01-26] MEDS: guaiFENesin 1,200 MG Tablet 1200 MG PO ×2 (10:11→22:30)
[2018-01-26] MEDS: Isosorbide Mononitrate 60 MG Tablet PO (10:11)
[2018-01-26] MEDS: Clopidogrel Bisulfate 75 MG Tablet PO (10:11)
[2018-01-26] MEDS: Niacin SA 500 MG Tablet PO ×2 (10:11→22:29)
[2018-01-26] MEDS: amLODIPine 5 MG Tablet PO (10:11)
--- NOTE | 2018-01-26 10:49 | PN.ID_ITS ---
Subjective: Feeling better, no fever, less SOB, legs less sore. No n/v/d. - Physical Exam General: Alert, Cooperative, No apparent distress Lungs: Clear to auscultation, Normal air movement Cardiovascular: Regular rate, Regular Rhythm Abdomen: Soft, Non Tender, Non-Distended Skin: Ulcer/ Wound - BLE wrapped, red, ulcerated Vital Signs Temp Pulse Resp BP Pulse Ox 8.4 F L 85 20 H 125/49 H 96 01/26/18 10:24 01/26/18 10:24 01/26/18 10:24 01/26/18 10:24 01/26/18 10:24 Oxygen Flow Rate (L/min) 4 Oxygen Delivery Method Nasal Cannula Weight: 95.8 kg Body Mass Index (BMI) 32.1 Intake and Output for Last 24 Hours 01/24/18 01/25/18 01/26/18 23:59 23:59 23:59 Intake Total 302 / 302 2563 / 2563 400 / 400 Balance 302 / 302 2563 / 2563 400 / 400 Microbiology Past 72 Hours 01/24/18 18:40 Gram Stain - Final Wound - Leg Wound Culture - Preliminary Streptococcus group C Staphylococcus aureus GNR Poss Pseudomonas sp Laboratory Tests Past 24 Hrs 01/26/18 01/26/18 01/26/18 05:05 05:05 08:15 WBC 11.7 H RBC 2.54 L Hgb 7.6 L Hct 25.6 L MCV 100.8 H MCH 29.9 MCHC 29.7 L RDW 15.2 H RDW Differential 53.4 H Plt Count 149 L MPV 9.7 Immature Gran % (Auto) 0.300 Neut % (Auto) 89.7 H Lymph % (Auto) 4.5 L [place] % (Auto) 4.4 Eos % (Auto) 1.0 Baso % (Auto) 0.1 Absolute Neuts (auto) 10.5 H Absolute Lymphs (auto) 0.53 L Total Counted Not Reportable Differential Comment SCANNED Sodium 145 Potassium 4.2 Chloride 107 Carbon Dioxide 28.0 Anion Gap 10 BUN 70 H Creatinine 2.15 H Estim Creat Clear Calc 25.61 Est GFR (MDRD) Af Amer 29 L Est GFR (MDRD) Non-Af 24 L BUN/Creatinine Ratio 32.6 H Glucose 148 H Calcium 8.1 L Blood Type A POSITIVE Antibody Screen NEGATIVE Crossmatch See Detail POC Glucose 07/31/18 07/30/18 07/30/18 06:29 21:46 16:15 POC Glucose 157 H 244 H 154 H 01/25/18 11:28 POC Glucose 138 H Medical Necessity - Tobacco Use Smoking Status: Never smoker Route of nutrition/ use of supplements: [] Nutritional Intake: [] IV Site: [] Blanc Catheter: [] - Assessment/Plan Antibiotics: [] Assessment/Plan: [] sepsis (fever, leukocytosis) - covering for CAP, BLE cellulitis. UA with heavy pyuria as well. Cxs with staph, strep, PsA-like. Narrowed vanc/aztreonam to cefepime which she has tolerated in the past. Feeling better. Will follow.
[2018-01-26 12:00] LABS: Bedside Glucose 264 mg/dL (70-110)
[2018-01-26] MEDS: Magnesium Hydroxide 30 ML UDC PO (16:44)
[2018-01-26 16:56] LABS: Bedside Glucose 268 mg/dL (70-110)
[2018-01-26] MEDS: Montelukast 10 MG Tablet PO (22:29)
[2018-01-26] MEDS: Rosuvastatin Calcium 5 MG Tablet 2.5 MG PO (22:40)
[2018-01-26 22:46] LABS: Bedside Glucose 282 mg/dL (70-110)
[2018-01-27] VITALS (18 sets, daily range): BP systolic 123–147; BP diastolic 46–78; PULSE 68–90; RESP 16–21; TEMP 36.3–37.4; O2SAT 95–98
[2018-01-27] MEDS: Ipratropium/Albuterol Sulfate 3 ML AMPUL.NEB INHALATION ×4 (01:12→20:01)
[2018-01-27 06:04] LABS: Anion Gap 9 (5-15); BUN 62 mg/dL (7-18); BUN/Creat Ratio 28.7 RATIO (10-20); Calcium,Total 8.1 mg/dL (8.5-10.1); Chloride 107 mmol/L (98-107); Creatinine, Serum 2.16 mg/dL (0.55-1.02); EST Glomerular Filtration Rate 24 mL/min (>60); Est Glom Filt Rate - Afr Amer 29 mL/min (>60); Glucose 192 mg/dL (74-106); Potassium 4.8 mmol/L (3.5-5.1); Sodium Level 143 mmol/L (136-145)
[2018-01-27 06:08] LABS: Absolute Lymphocyte Count 0.67 X10^3/ul (0.83-4.51); Absolute Neutrophil Count 12.7 X10^3/uL (2.0-7.7); Basophil# 0.03 X10^3/uL; Basophil% 0.2 % (0-1); Eosinophil# 0.12 X10^3/uL; Eosinophils% 0.8 % (0-5); Hematocrit 28.6 % (37-47); Hemoglobin 8.5 g/dl (12.0-15.0); Lymphocyte # 0.67 X10^3/ul (4.0); Lymphocyte % 4.7 % (19-41); Mean Corp Hgb Conc 29.7 g/gl (32-36); Mean Corpuscular Hgb 28.9 pg (27.0-32.0); Mean Corpuscular Volume 97.3 fL (81-99); Mean Platelet Vol. 10.3 fl (6.2-12.0); Monocyte# 0.71 X10^3/uL; Monocyte% 4.9 % (0-10); Neutrophil # 12.68 X10^3/uL (2.7-7.7); Neutrophil % 88.4 % (47-70); Platelet Count 172 K/mm3 (150-450); RBC Distribution Width CV 16.5 % (11.6-14.6); RBC Distribution Width SD 56.2 fl (35.1-43.9); Red Blood Count 2.94 M/mm3 (4.2-5.4); White Blood Count 14.4 K/mm3 (4.4-11.0)
[2018-01-27 06:14] LABS: POSITIVE COUNT NO; POSITIVE DIFFERENTIAL NO; POSITIVE MORPHOLOGY NO
[2018-01-27] MEDS: Heparin Injection (Vial) 5,000 UNIT/ML VIAL 5000 UNIT SC ×3 (06:43→21:53)
[2018-01-27 07:01] LABS: Bedside Glucose 198 mg/dL (70-110)
--- NOTE | 2018-01-27 07:46 | PCM.PROGNOTE ---
Subjective: Chief complaint: Follow-up after admission for sepsis secondary to healthcare associated pneumonia, probable recurrent bilateral lower extremity diabetic cellulitis and found to have acute kidney injury stage III chronic kidney disease and also she developed acute on chronic anemia. Patient seen and examined. No acute events overnight. She mentioned that her breathing is getting better, she is down to 2 L of oxygen. Still complaining of dry cough. She is afebrile, blood pressure and heart rate are stable, pulse ox is 95% on 2 L. - Physical Exam General: Alert, Oriented x3, Cooperative, - - Minimally short of breath. HEENT: Atraumatic, PERRLA, EOMI, Normocephalic Oral: Moist Mucosa, No Gingival or Mucosal Lesions/ Ulcerations Neck: Supple, No JVD, Negative Carotid Bruits, Trachea Midline, Thyroid Normal Size and Texture Lungs: Clear to auscultation, No wheeze, No rales, Diminished, Rhonchi Cardiovascular: Regular rate, Regular Rhythm, Normal S1, Normal S2, Murmur Abdomen: Bowel Sounds Present, Soft, Non Tender, Non-Distended, No Hepato-splenomegaly, Obese Extremities: No clubbing, No cyanosis, Edema Skin: No rashes, Ulcer/ Wound Lymphatic: No Cervical, Supraclavicular, or Inguinal Adenopathy Neurological: Cranial nerves II-XII grossly intact, Neuro grossly intact Psych/Mental Status: Normal Affect, Appropriate, Alert and oriented to time, place, person, mood and affect Vital Signs Temp Pulse Resp BP Pulse Ox 99.3 F H 88 20 H 147/49 H 95 01/27/18 02:00 01/27/18 07:23 01/27/18 07:00 01/27/18 02:00 01/27/18 07:29 Oxygen Flow Rate (L/min) 2 Oxygen Delivery Method Nasal Cannula Weight: 211 lb 3.245 oz Body Mass Index (BMI) 32.1 Intake and Output for Last 24 Hours 01/25/18 01/26/18 01/27/18 23:59 23:59 23:59 Intake Total 2563 / 2563 1659 / 1659 760 / 760 Output Total 1300 / 1300 Balance 2563 / 2563 359 / 359 760 / 760 Microbiology Past 72 Hours 01/24/18 18:40 Gram Stain - Final Wound - Leg Wound Culture - Preliminary Streptococcus group C Staphylococcus aureus GNR Poss Pseudomonas sp Laboratory Tests Past 24 Hrs 01/26/18 01/27/18 01/27/18 08:15 05:30 05:30 WBC 14.4 H RBC 2.94 L Hgb 8.5 L Hct 28.6 L MCV 97.3 MCH 28.9 MCHC 29.7 L RDW 16.5 H RDW Differential 56.2 H Plt Count 172 MPV 10.3 Immature Gran % (Auto) 1.000 H Neut % (Auto) 88.4 H Lymph % (Auto) 4.7 L Mccormick % (Auto) 4.9 Eos % (Auto) 0.8 Baso % (Auto) 0.2 Absolute Neuts (auto) 12.7 H Absolute Lymphs (auto) 0.67 L Total Counted Not Reportable Sodium 143 Potassium 4.8 Chloride 107 Carbon Dioxide 27.0 Anion Gap 9 BUN 62 H Creatinine 2.16 H Estim Creat Clear Calc 25.50 Est GFR (MDRD) Af Amer 29 L Est GFR (MDRD) Non-Af 24 L BUN/Creatinine Ratio 28.7 H Glucose 192 H Calcium 8.1 L Blood Type A POSITIVE Antibody Screen NEGATIVE Crossmatch See Detail POC Glucose 01/27/18 01/26/18 01/26/18 06:45 22:28 16:32 POC Glucose 198 H 282 H 268 H 01/26/18 11:50 POC Glucose 264 H Medical Necessity - Tobacco Use Smoking Status: Never smoker Assessment/Plan All Active Problems BRBPR (bright red blood per rectum) (Resolved) C. difficile colitis (Resolved) Hyperkalemia (Resolved) This is a 67 years old female patient transferred from the correction because of fever and vomiting and she was found to have sepsis secondary to acute right lower lobe healthcare associated pneumonia, recurrent bilateral lower extremity cellulitis as well as acute kidney injury on top of stage III chronic kidney disease and while in the hospital, she developed acute on chronic anemia requiring blood transfusion. #1 sepsis: Remains on IV cefepime. He has been afebrile for more than 72 hours, white blood cell count is trending up. Blood culture showed no growth in 48 hours. Urine culture showed no growth. Wound culture showed group C streptococcus, status aureus and possible Pseudomonas, final is pending. Plan to continue same treatment. #2 right lower lobe healthcare associated pneumonia: She is on IV cefepime as above. Her white blood cell count is trending up but remained afebrile. Urine culture showed no growth. Blood culture showed no growth in 48 hours. Oxygen requirement has been improving, she is down to 2 L. Plan to potassium treatment. #3 probable recurrent bilateral lower extremity diabetic cellulitis: Again, she is on IV cefepime. Wound culture revealed group C streptococcus, staph aureus and possible Pseudomonas, final is pending. I spoke with the wound care nurse who knows the patient very well and she stated that her wounds and legs actually looks much better, no active ulcers but she has skin maceration, erythema and swelling as well as seeping. Infectious disease on the case, plan to continue same treatment. #4 acute cystitis: She is on IV cefepime. Although urinalysis showed significant pyuria, urine culture showed no growth. #5 acute kidney injury double stage III chronic disease: IV fluids discontinued because of increasing oxygen requirement. Today's creatinine is 2.16, stable. #6 acute on chronic anemia: Yesterday's hemoglobin is 7.6 g/dL. No evidence of obvious active bleeding. She received 1 unit of packed RBCs and today's hemoglobin is 8.5 g/dL. #7 mild hyperkalemia: Potassium is 5.3. No EKG acute changes. She received 1 dose of Kayexalate. Today's potassium is 4.8. #8 CAD status post CABG: EKG reviewed, no acute ischemic changes. Patient has no chest pain. Continue aspirin, Plavix, statins, isosorbide mononitrate and metoprolol. #9 chronic respiratory failure: Normally, she is on oxygen at the correction at 2 L. At this time, she is back on 2 L, improving. #10 type 2 diabetes mellitus: Blood sugar stable, continue ADA diet, Accu-Cheks, insulin sliding scale, continue Lantus and pre-meal Humalog. #11 hypertension: Blood pressure stable, continue Norvasc, metoprolol and isosorbide mononitrate. #12 DVT prophylaxis: Subcu heparin. Other chronic medical problems: #1 chronic bilateral venous insufficiency of both lower extremities/lymphedema. #2 pulmonary hypertension. #3 peripheral neuropathy. #4 hyperlipidemia. #5 GERD. This note was generated with [employer] software. It may contain incorrect words, spelling, and punctuation that were not noted in checking the note before signing.
--- NOTE | 2018-01-27 07:54 | PN_ITS ---
Subjective: Chief complaint: Follow-up after admission for sepsis secondary to healthcare associated pneumonia, probable recurrent bilateral lower extremity diabetic cellulitis and found to have acute kidney injury stage III chronic kidney disease and also she developed acute on chronic anemia. Patient seen and examined. No acute events overnight. She mentioned that her breathing is getting better, she is down to 2 L of oxygen. Still complaining of dry cough. She is afebrile, blood pressure and heart rate are stable, pulse ox is 95% on 2 L. - Physical Exam General: Alert, Oriented x3, Cooperative, - - Minimally short of breath. HEENT: Atraumatic, PERRLA, EOMI, Normocephalic Oral: Moist Mucosa, No Gingival or Mucosal Lesions/ Ulcerations Neck: Supple, No JVD, Negative Carotid Bruits, Trachea Midline, Thyroid Normal Size and Texture Lungs: Clear to auscultation, No wheeze, No rales, Diminished, Rhonchi Cardiovascular: Regular rate, Regular Rhythm, Normal S1, Normal S2, Murmur Abdomen: Bowel Sounds Present, Soft, Non Tender, Non-Distended, No Hepato- splenomegaly, Obese Extremities: No clubbing, No cyanosis, Edema Skin: No rashes, Ulcer/ Wound Lymphatic: No Cervical, Supraclavicular, or Inguinal Adenopathy Neurological: Cranial nerves II-XII grossly intact, Neuro grossly intact Psych/Mental Status: Normal Affect, Appropriate, Alert and oriented to time, place, person, mood and affect Vital Signs Temp Pulse Resp BP Pulse Ox 99.3 F H 88 20 H 147/49 H 95 01/27/18 02:00 01/27/18 07:23 01/27/18 07:00 01/27/18 02:00 01/27/18 07:29 Oxygen Flow Rate (L/min) 2 Oxygen Delivery Method Nasal Cannula Weight: 211 lb 3.245 oz Body Mass Index (BMI) 32.1 Intake and Output for Last 24 Hours 01/25/18 01/26/18 01/27/18 23:59 23:59 23:59 Intake Total 2563 / 2563 1659 / 1659 760 / 760 Output Total 1300 / 1300 Balance 2563 / 2563 359 / 359 760 / 760 Microbiology Past 72 Hours 01/24/18 18:40 Gram Stain - Final Wound - Leg Wound Culture - Preliminary Streptococcus group C Staphylococcus aureus GNR Poss Pseudomonas sp Laboratory Tests Past 24 Hrs 01/26/18 01/27/18 01/27/18 08:15 05:30 05:30 WBC 14.4 H RBC 2.94 L Hgb 8.5 L Hct 28.6 L MCV 97.3 MCH 28.9 MCHC 29.7 L RDW 16.5 H RDW Differential 56.2 H Plt Count 172 MPV 10.3 Immature Gran % (Auto) 1.000 H Neut % (Auto) 88.4 H Lymph % (Auto) 4.7 L [place] % (Auto) 4.9 Eos % (Auto) 0.8 Baso % (Auto) 0.2 Absolute Neuts (auto) 12.7 H Absolute Lymphs (auto) 0.67 L Total Counted Not Reportable Sodium 143 Potassium 4.8 Chloride 107 Carbon Dioxide 27.0 Anion Gap 9 BUN 62 H Creatinine 2.16 H Estim Creat Clear Calc 25.50 Est GFR (MDRD) Af Amer 29 L Est GFR (MDRD) Non-Af 24 L BUN/Creatinine Ratio 28.7 H Glucose 192 H Calcium 8.1 L Blood Type A POSITIVE Antibody Screen NEGATIVE Crossmatch See Detail POC Glucose 01/27/18 01/26/18 01/26/18 06:45 22:28 16:32 POC Glucose 198 H 282 H 268 H 01/26/18 11:50 POC Glucose 264 H Medical Necessity - Tobacco Use Smoking Status: Never smoker Assessment/Plan All Active Problems BRBPR (bright red blood per rectum) (Resolved) C. difficile colitis (Resolved) Hyperkalemia (Resolved) This is a 67 years old female patient transferred from the long-term because of fever and vomiting and she was found to have sepsis secondary to acute right lower lobe healthcare associated pneumonia, recurrent bilateral lower extremity cellulitis as well as acute kidney injury on top of stage III chronic kidney disease and while in the hospital, she developed acute on chronic anemia requiring blood transfusion. #1 sepsis: Remains on IV cefepime. He has been afebrile for more than 72 hours , white blood cell count is trending up. Blood culture showed no growth in 48 hours. Urine culture showed no growth. Wound culture showed group C streptococcus, status aureus and possible Pseudomonas, final is pending. Plan to continue same treatment. #2 right lower lobe healthcare associated pneumonia: She is on IV cefepime as above. Her white blood cell count is trending up but remained afebrile. Urine culture showed no growth. Blood culture showed no growth in 48 hours. Oxygen requirement has been improving, she is down to 2 L. Plan to potassium treatment. #3 probable recurrent bilateral lower extremity diabetic cellulitis: Again, she is on IV cefepime. Wound culture revealed group C streptococcus, staph aureus and possible Pseudomonas, final is pending. I spoke with the wound care nurse who knows the patient very well and she stated that her wounds and legs actually looks much better, no active ulcers but she has skin maceration, erythema and swelling as well as seeping. Infectious disease on the case, plan to continue same treatment. #4 acute cystitis: She is on IV cefepime. Although urinalysis showed significant pyuria, urine culture showed no growth. #5 acute kidney injury double stage III chronic disease: IV fluids discontinued because of increasing oxygen requirement. Today's creatinine is 2.16, stable. #6 acute on chronic anemia: Yesterday's hemoglobin is 7.6 g/dL. No evidence of obvious active bleeding. She received 1 unit of packed RBCs and today's hemoglobin is 8.5 g/dL. #7 mild hyperkalemia: Potassium is 5.3. No EKG acute changes. She received 1 dose of Kayexalate. Today's potassium is 4.8. #8 CAD status post CABG: EKG reviewed, no acute ischemic changes. Patient has no chest pain. Continue aspirin, Plavix, statins, isosorbide mononitrate and metoprolol. #9 chronic respiratory failure: Normally, she is on oxygen at the long-term at 2 L. At this time, she is back on 2 L, improving. #10 type 2 diabetes mellitus: Blood sugar stable, continue ADA diet, Accu-Cheks , insulin sliding scale, continue Lantus and pre-meal Humalog. #11 hypertension: Blood pressure stable, continue Norvasc, metoprolol and isosorbide mononitrate. #12 DVT prophylaxis: Subcu heparin. Other chronic medical problems: #1 chronic bilateral venous insufficiency of both lower extremities/lymphedema. #2 pulmonary hypertension. #3 peripheral neuropathy. #4 hyperlipidemia. #5 GERD. This note was generated with [id number] software. It may contain incorrect words, spelling, and punctuation that were not noted in checking the note before signing.
[2018-01-27] MEDS: Clopidogrel Bisulfate 75 MG Tablet PO (08:22)
[2018-01-27] MEDS: Pantoprazole Sodium 40 MG Tablet PO ×2 (08:22→21:52)
[2018-01-27] MEDS: guaiFENesin 1,200 MG Tablet 1200 MG PO ×2 (08:23→21:52)
[2018-01-27] MEDS: Niacin SA 500 MG Tablet PO ×2 (08:23→21:52)
[2018-01-27] MEDS: Furosemide 40 MG Tablet PO (08:23)
[2018-01-27] MEDS: Aspirin 81 MG TAB.CHEW PO (08:23)
[2018-01-27] MEDS: Insulin Lispro 100 UNIT/ML INSULN.PEN 15 UNIT SC ×3 (08:23→16:47)
[2018-01-27] MEDS: Gabapentin 100 MG Capsule PO ×2 (08:23→21:52)
[2018-01-27] MEDS: Ferrous Gluconate 325 MG Tablet PO (08:23)
[2018-01-27] MEDS: amLODIPine 5 MG Tablet PO (08:23)
[2018-01-27] MEDS: Isosorbide Mononitrate 60 MG Tablet PO (08:23)
[2018-01-27] MEDS: Insulin Lispro 100 UNIT/ML INSULN.PEN SQ ×4 (08:24→21:54)
[2018-01-27] MEDS: Metoprolol Tartrate 100 MG Tablet PO ×2 (08:24→21:52)
--- NOTE | 2018-01-27 11:57 | PN.ID_ITS ---
Subjective: Feeling much better, no SOB, no fever, legs improved. - Physical Exam General: Alert, Cooperative, No apparent distress Lungs: Clear to auscultation, Normal air movement Cardiovascular: Regular rate, Regular Rhythm Abdomen: Soft, Non Tender, Non-Distended Skin: Ulcer/ Wound - BLE maceration, improved Vital Signs Temp Pulse Resp BP Pulse Ox 98.4 F 90 18 140/57 H 95 01/27/18 08:00 01/27/18 08:24 01/27/18 08:00 01/27/18 08:00 01/27/18 08:00 Oxygen Flow Rate (L/min) 2 Oxygen Delivery Method Nasal Cannula Weight: 95.8 kg Body Mass Index (BMI) 32.1 Intake and Output for Last 24 Hours 01/25/18 01/26/18 01/27/18 23:59 23:59 23:59 Intake Total 2563 / 2563 1659 / 1659 760 / 760 Output Total 1300 / 1300 Balance 2563 / 2563 359 / 359 760 / 760 Microbiology Past 72 Hours 01/24/18 18:40 Gram Stain - Final Wound - Leg Wound Culture - Preliminary Streptococcus group C Staphylococcus aureus GNR Poss Pseudomonas sp Gram negative salima Laboratory Tests Past 24 Hrs 01/26/18 01/27/18 01/27/18 08:15 05:30 05:30 WBC 14.4 H RBC 2.94 L Hgb 8.5 L Hct 28.6 L MCV 97.3 MCH 28.9 MCHC 29.7 L RDW 16.5 H RDW Differential 56.2 H Plt Count 172 MPV 10.3 Immature Gran % (Auto) 1.000 H Neut % (Auto) 88.4 H Lymph % (Auto) 4.7 L [place] % (Auto) 4.9 Eos % (Auto) 0.8 Baso % (Auto) 0.2 Absolute Neuts (auto) 12.7 H Absolute Lymphs (auto) 0.67 L Total Counted Not Reportable Sodium 143 Potassium 4.8 Chloride 107 Carbon Dioxide 27.0 Anion Gap 9 BUN 62 H Creatinine 2.16 H Estim Creat Clear Calc 25.50 Est GFR (MDRD) Af Amer 29 L Est GFR (MDRD) Non-Af 24 L BUN/Creatinine Ratio 28.7 H Glucose 192 H Calcium 8.1 L Crossmatch See Detail POC Glucose 01/27/18 01/26/1801/26/18 06:45 22:28 16:32 POC Glucose 198 H 282 H 268 H 01/26/18 11:50 POC Glucose 264 H Medical Necessity - Tobacco Use Smoking Status: Never smoker Route of nutrition/ use of supplements: [] Nutritional Intake: [] IV Site: [] Blanc Catheter: [] - Assessment/Plan Antibiotics: [] Assessment/Plan: [] sepsis (fever, leukocytosis) - covering for CAP, BLE cellulitis. UA with heavy pyuria as well. Cxs with staph, strep, PsA-like. Narrowed vanc/aztreonam to cefepime which she has tolerated in the past. Feeling better. Will follow. D/w Dr. Crowder.
[2018-01-27 12:01] LABS: Bedside Glucose 160 mg/dL (70-110)
--- NOTE | 2018-01-27 13:21 | CASEMGMT ---
Social Work Phone call to Vicky at [facility] and precert has not yet been obtained. Updated clinicals faxed. Will await insurance determination. Plan: [facility], pending insurance authorization AYDIN Lloyd
[2018-01-27 16:55] LABS: Bedside Glucose 193 mg/dL (70-110)
[2018-01-27] MEDS: Montelukast 10 MG Tablet PO (21:52)
[2018-01-27] MEDS: Rosuvastatin Calcium 5 MG Tablet 2.5 MG PO (22:03)
[2018-01-27 22:51] LABS: Bedside Glucose 284 mg/dL (70-110)
[2018-01-28] VITALS (11 sets, daily range): BP systolic 127–155; BP diastolic 39–46; PULSE 70–91; RESP 16–18; TEMP 36.2–37.1; O2SAT 96–100
[2018-01-28] MEDS: Ipratropium/Albuterol Sulfate 3 ML AMPUL.NEB INHALATION ×3 (01:12→13:10)
[2018-01-28] MEDS: Magnesium Hydroxide 30 ML UDC PO (02:36)
[2018-01-28] MEDS: Heparin Injection (Vial) 5,000 UNIT/ML VIAL 5000 UNIT SC ×2 (07:02→14:18)
[2018-01-28 07:10] LABS: Bedside Glucose 225 mg/dL (70-110)
[2018-01-28] MEDS: 0.9% NaCl Peripheral Flush Adult/Peds IV (09:50)
[2018-01-28] MEDS: Metoprolol Tartrate 100 MG Tablet PO (09:51)
[2018-01-28] MEDS: Isosorbide Mononitrate 60 MG Tablet PO (09:51)
[2018-01-28] MEDS: Furosemide 40 MG Tablet PO (09:51)
[2018-01-28] MEDS: amLODIPine 5 MG Tablet PO (09:51)
[2018-01-28] MEDS: Pantoprazole Sodium 40 MG Tablet PO (09:51)
[2018-01-28] MEDS: Gabapentin 100 MG Capsule PO (09:51)
[2018-01-28] MEDS: Aspirin 81 MG TAB.CHEW PO (09:51)
[2018-01-28] MEDS: Niacin SA 500 MG Tablet PO (09:51)
[2018-01-28] MEDS: Clopidogrel Bisulfate 75 MG Tablet PO (09:51)
[2018-01-28] MEDS: guaiFENesin 1,200 MG Tablet 1200 MG PO (09:51)
[2018-01-28] MEDS: Ferrous Gluconate 325 MG Tablet PO (09:52)
[2018-01-28] MEDS: Insulin Lispro 100 UNIT/ML INSULN.PEN SQ ×2 (09:53→12:11)
[2018-01-28] MEDS: Insulin Lispro 100 UNIT/ML INSULN.PEN 15 UNIT SC ×2 (09:54→12:11)
--- NOTE | 2018-01-28 11:57 | PCM.PN.HOSP ---
Subjective: Patient is a 67-year-old lady with history of chronic venous stasis presented fever and vomiting found to have acute right lower lobe infiltrate consistent with pneumonia as well as with increasing swelling and erythema involving both lower extremities Objective: GENERAL: cooperative HEENT: Clear conjunctiva, NECK; supple, normal thyroid, CHEST: Diminished to auscultation bilaterally, HEART: Regular S1 S2, no audible murmurs ABDOMEN: soft, non-tender, normoactive bowel sounds, RECTAL: deferred EXTREMITIES: Bilateral stasis dermatitis [employer]: Awake, alert and oriented to time, place and person, SKIN: Bilateral lower extremity erythema, swelling with some warmth Vitals/I&O's: Vital Signs Temp Pulse Resp BP Pulse Ox 97.2 F L 76 16 155/46 H 98 01/28/18 09:50 01/28/18 11:21 01/28/18 09:50 01/28/18 09:50 01/28/18 09:50 Oxygen Flow Rate (L/min) 2 Oxygen Delivery Method Nasal Cannula Weight: 95.8 kg Body Mass Index (BMI) 32.1 Intake and Output for Last 24 Hours 01/26/18 01/27/18 01/28/18 23:59 23:59 23:59 Intake Total 1659 / 1659 1720 / 1720 240 / 240 Output Total 1300 / 1300 Balance 359 / 359 1720 / 1720 240 / 240 Microbiology Past 72 Hours 01/24/18 18:40 Wound - Leg Gram Stain - Final 01/24/18 18:40 Wound - Leg Wound Culture - Final Streptococcus group C Staphylococcus aureus Burkholderia cepacia Proteus hauseri 01/24/18 16:25 Blood Culture (Wb) - Anticubital Left Blood Culture - Preliminary No growth in 48 hours. Laboratory Results 01/27/18 11:53: POC Glucose 160 H 01/27/18 16:44: POC Glucose 193 H 01/27/18 21:45: POC Glucose 284 H 01/28/18 07:01: POC Glucose 225 H Current Medications Acetaminophen (Tylenol) 650 mg PO Q6H PRN PRN PRN Reason: FEVER Last Admin: 01/26/18 06:40 Dose: 650 mg Albuterol Sulfate (Ventolin Aerosols) 2.5 mg INHALATION Q2H PRN PRN PRN Reason: SHORTNESS OF BREATH Albuterol/Ipratropium (Duoneb) 3 ml INHALATION Q6H.RT [facility] Last Admin: 01/28/18 07:15 Dose: 3 ml Amlodipine Besylate (Norvasc) 5 mg PO DAILY [facility] Last Admin: 01/28/18 09:51 Dose: 5 mg Aspirin (Aspirin, Baby) 81 mg PO DAILY@0800 [facility] Last Admin: 01/28/18 09:51 Dose: 81 mg Clopidogrel Bisulfate (Plavix) 75 mg PO DAILY [facility] Last Admin: 01/28/18 09:51 Dose: 75 mg Ferrous Gluconate (Ferrous Gluconate) 325 mg PO DAILY@0800 [facility] Last Admin: 01/28/18 09:52 Dose: 325 mg Furosemide (Lasix) 40 mg PO DAILY [facility] Last Admin: 01/28/18 09:51 Dose: 40 mg Gabapentin (Neurontin) 100 mg PO BID [facility] Last Admin: 01/28/18 09:51 Dose: 100 mg Guaifenesin (Mucinex) 1,200 mg PO BID [facility] Last Admin: 01/28/18 09:51 Dose: 1,200 mg Heparin Sodium (Porcine) (Heparin Na) 5,000 unit SC Q8 [facility] Last Admin: 01/28/18 07:02 Dose: 5,000 u Cefepime HCl 2 gm/ Sodium (Chloride) 100 mls @ 200 mls/hr IV Q24 [facility] Last Admin: 01/28/18 09:47 Dose: 200 mls/hr Insulin Glargine (Lantus (Bkc)) 45 units SC QHS [facility] Last Admin: 01/27/18 21:55 Dose: 45 u Insulin Human Lispro (Humalog Kwikpen (Bkc)) 0 unit SQ ACHS [facility] PRN Reason: Protocol Last Admin: 01/28/18 09:53 Dose: 2 units Insulin Human Lispro (Humalog Kwikpen (Bkc)) 15 unit SC TIDAC [facility] Last Admin: 01/28/18 09:54 Dose: 15 units Isosorbide Mononitrate (Imdur) 60 mg PO DAILY [facility] Last Admin: 01/28/18 09:51 Dose: 60 mg Magnesium Hydroxide (Milk Of Magnesia) 30 ml PO DAILY PRN PRN Reason: Constipation Last Admin: 01/28/18 02:36 Dose: 30 ml Metoprolol Tartrate (Lopressor (Beta Richard)) 100 mg PO BID [facility] Last Admin: 01/28/18 09:51 Dose: 100 mg Montelukast Sodium (Singulair) 10 mg PO QHS [facility] Last Admin: 01/27/18 21:52 Dose: 10 mg Niacin (Niaspan) 500 mg PO BID [facility] Last Admin: 01/28/18 09:51 Dose: 500 mg Ondansetron HCl (Zofran) 4 mg IV Q8H PRN PRN PRN Reason: NAUSEA Pantoprazole Sodium (Protonix) 40 mg PO BID [facility] Last Admin: 01/28/18 09:51 Dose: 40 mg Rosuvastatin Calcium (Crestor) 2.5 mg PO QHS [facility] Last Admin: 01/27/18 22:03 Dose: 2.5 mg Sodium Chloride () 5 - 30 ml IV UD PRN PRN Reason: SALINE FLUSH Last Admin: 01/28/18 09:50 Dose: 10 ml Medical Necessity - Tobacco Use Smoking Status: Never smoker Assessment/Plan All Active Problems BRBPR (bright red blood per rectum) (Resolved) C. difficile colitis (Resolved) Hyperkalemia (Resolved) Patient is a 67-year-old lady with history of chronic venous stasis presented fever and vomiting found to have acute right lower lobe infiltrate consistent with pneumonia as well as with increasing swelling and erythema involving both lower extremities 1. Sepsis secondary to healthcare associated pneumonia with suspected gram-negative organisms patient was management exact time as well as cefepime consultation was placed to Dr. Marquez with infectious diseases note and recommendations reviewed. 2. Acute acute on chronic recurrent cellulitis of both lower extremities with multi-microbial organisms( group C streptococcus, staph aureus as well as Proteus in the context of chronic venostasis . ID on consult 3. Acute kidney injury secondary to suspected ATN from patient's sepsis kidney function has since improved 4. Chronic kidney disease stage IV secondary to diabetic nephropathy 5. Chronic bilateral lymphedema both lower extremities 6. Diabetes mellitus type II: Controlled with complications including diabetic neuropathy, Placed on long acting insulin, Accu-Cheks a.c. and at bedtime and covered with sliding scale insulin 7. Peripheral vascular disease 8. Chronic diabetic neuropathy both lower extremities 9. Hypertension-blood pressure controlled, home medications continued with dose adjustment as needed 10. Coronary artery disease and history of coronary artery bypass surgery 11. Dyslipidemia-patient is on statin therapy, continued at home dose 12. GERD on PPI 10. Pulmonary hypertension: 11. Anemia secondary to anemia of chronic disorder patient was transfused with 1 unit PRBC since patient was deemed to be symptomatic 12. Hyperkalemia treated per protocol; potassium levels have since normalized 10. Chronic hypoxic respiratory failure patient is on baseline home O2 14. Morbid obesity with BMI of 32.1 lifestyle modification including weight loss advised 15. DVT prophylaxis SC heparin Microbiology 01/24/18 18:40 Wound - Leg Gram Stain - Final 01/24/18 18:40 Wound - Leg Wound Culture - Final Streptococcus group C Staphylococcus aureus Burkholderia cepacia Proteus hauseri 01/24/18 16:25 Blood Culture (Wb) - Anticubital Left Blood Culture - Preliminary No growth in 48 hours. 01/24/18 14:45 Blood Culture (Wb) - Anticubital Left Blood Culture - Preliminary No growth in 48 hours. 01/24/18 15:07 Urine Catheter - Catheter Urine Culture - Final Culture exhibits no growth. Code Visit Inpatient E&M: 38724 Subs Hosp L2
[2018-01-28 12:21] LABS: Bedside Glucose 288 mg/dL (70-110)
--- NOTE | 2018-01-28 14:40 | RAD_ITS ---
STUDY: X-RAY CHEST REASON FOR EXAM: Female, 67 years old. Cough, shortness of breath. TECHNIQUE: AP upright portable chest. COMPARISON: 01/24/2018.. FINDINGS: Median sternotomy. Borderline cardiomegaly, stable. Normal mediastinal silhouette, kel and pleural margins. Clear bilateral lungs. No effusion or pneumothorax. No acute osseous or upper abdominal process. RAD/Chest 1 View (Portable) IMPRESSION: No acute cardiopulmonary process. No definitive infiltrate and no definitive features of pulmonary edema. Electronically Signed: Calixto King, at 16:51 EDT Tel , Service support ,
--- NOTE | 2018-01-28 14:41 | PCM.PN.ID ---
Subjective: Feeling better, still some cough. No fever. Legs doing well. - Physical Exam General: Alert, Cooperative, No apparent distress Lungs: Clear to auscultation, Normal air movement Cardiovascular: Regular rate, Regular Rhythm Abdomen: Bowel Sounds Present, Soft, Non Tender, Non-Distended Skin: Ulcer/ Wound - BLE wrapped Vital Signs Temp Pulse Resp BP Pulse Ox 97.2 F L 70 18 155/46 H 98 01/28/18 09:50 01/28/18 13:10 01/28/18 13:10 01/28/18 09:50 01/28/18 09:50 Oxygen Flow Rate (L/min) 2 Oxygen Delivery Method Nasal Cannula Weight: 95.8 kg Body Mass Index (BMI) 32.1 Intake and Output for Last 24 Hours 01/26/18 01/27/18 01/28/18 23:59 23:59 23:59 Intake Total 1659 / 1659 1720 / 1720 720 / 720 Output Total 1300 / 1300 Balance 359 / 359 1720 / 1720 720 / 720 Microbiology Past 72 Hours 01/24/18 18:40 Gram Stain - Final Wound - Leg Wound Culture - Final Streptococcus group C Staphylococcus aureus Burkholderia cepacia Proteus hauseri 01/24/18 16:25 Blood Culture - Preliminary Blood Culture (Wb) - Anticubital Left No growth in 48 hours. POC Glucose 01/28/18 01/28/18 01/27/18 12:07 07:01 21:45 POC Glucose 288 H 225 H 284 H 01/27/18 16:44 POC Glucose 193 H Medical Necessity - Tobacco Use Smoking Status: Never smoker Route of nutrition/ use of supplements: [] Nutritional Intake: [] IV Site: [] Blanc Catheter: [] - Assessment/Plan Antibiotics: [] Assessment/Plan: [] sepsis (fever, leukocytosis) - covering for CAP, BLE cellulitis. UA with heavy pyuria as well. Cxs with MRSA, strep, burkholderia, proteus. Doubt these are true pathogens given her improvement on cefepime. Feeling better. Will check repeat cxr. If this shows improvement, ok for d/c to [facility] off of abx today or tomorrow. Will follow. D/w cyanide case hardener.
--- NOTE | 2018-01-28 14:54 | PCM.TXEXTCAR ---
- Diet 01/24/18 16:22 Diet: Cardiac: Calorie-Controlled Food consistency:: Regular Liquid Consistency:: Regular/Thin How many daily calories?: 1800 calorie - Routine Orders/Code Status Code Status: Full Code - Wound(s) BLE Wound Type: chronic stasis dermatitis Dressing Change: Adaptic Coccyx Wound Type: Pressure Injury - Therapies Physical Therapy: Eval and Treat Occupational Therapy: Eval and Treat - Allergies/Procedures Done in Hospital Allergies/Adverse Reactions: Allergies Penicillins Allergy (Verified 12/27/17 01:50) Rash rosiglitazone maleate [From Avandia] Allergy (Verified 12/27/17 01:50) Swelling & diarrhea simvastatin [From Zocor] Allergy (Verified 12/27/17 01:50) Muscle weakness atorvastatin calcium [From Lipitor] Adverse Reaction (Verified 12/27/17 01:50) Muscle weakness esomeprazole magnesium [From Nexium] Adverse Reaction (Verified 12/27/17 01:50) Diarrhea lansoprazole [From Prevacid] Adverse Reaction (Verified 12/27/17 01:50) Diarrhea Sulfa (Sulfonamide Antibiotics) Adverse Reaction (Verified 12/27/17 01:50) Nausea/Vom/Diarrhea from PCP office records - Type of Care/Length of Stay Estimated LOS: More Than 30 Days Type of Care Needed: Intermediate Rehab Potential: Fair Prognosis: Fair - Additional Orders/Day of Discharge Day of Discharge: 01/28/18 - Dietary and Speech Recommendations Dietitian Recommendations/Changes: Continue cardiac, 1800 calorie controlled diet. May benefit from Jerod 1 packet BID to assist w/ wound healing and skin integrity. - Follow Up Care Primary Care Physician: Kim Field MD [Primary Care Provider] - Please follow up with your Primary Care Physician in: in 1-2 weeks
--- NOTE | 2018-01-28 15:05 | PCM.DC.SUM ---
Discharge Date and Diagnosis Date of Admission: 01/24/18 Date of Discharge: 01/28/18 - Primary Discharge Diagnosis Sepsis secondary to healthcare acquired pneumonia and bilateral cellulitis - Secondary Discharge Diagnosis Chronic Problems Ulcer of right lower extremity with fat layer exposed (Chronic) anterior lower extremity ulcer Venous insufficiency of both lower extremities (Chronic) Other specified peripheral vascular diseases (Chronic) Ulcer of left lower extremity with fat layer exposed (Chronic) Ulcer of right lower extremity with fat layer exposed (Chronic) Delayed wound healing (Chronic) Maceration of skin (Chronic) Acquired deformity of toe of both feet (Chronic) Type 2 diabetes mellitus with diabetic peripheral angiopathy without gangrene (Chronic) Lymphedema in adult patient (Chronic) Noncompliance with treatment regimen (Chronic) 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) Aortic stenosis, mild (Chronic) Pulmonary arterial hypertension (Chronic) Pulmonary nodules (Chronic) Cholelithiasis (Chronic) Tricuspid regurgitation (Chronic) History of esophageal reflux (Chronic) History of hyperlipidemia (Chronic) History of hypertension (Chronic) S/P CABG (coronary artery bypass graft) (Chronic) Obesity (BMI 30.0-34.9) (Chronic) Stasis dermatitis of both legs (Chronic) 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) Thrombocytopenia (Chronic) Neuropathy, peripheral (Chronic) Hospital Course and Treatment Imaging Results: 01/28/18 14:40 CXR [Chest 1 View (Portable)] [RAD] Routine Consultations 01/24/18 17:27 Consult: Onc/Wound/cheese pancake roller Routine Comment: Operations: None Summary of Care Provided: Patient is a 67-year-old lady with history of chronic venous stasis presented fever and vomiting found to have acute right lower lobe infiltrate consistent with pneumonia as well as with increasing swelling and erythema involving both lower extremities 1. Sepsis secondary to healthcare associated pneumonia with suspected gram-negative organisms patient was management exact time as well as cefepime consultation was placed to Dr. Marquez with infectious diseases note and recommendations reviewed. 2. Acute acute on chronic recurrent cellulitis of both lower extremities with multi-microbial organisms( group C streptococcus, staph aureus as well as Proteus in the context of chronic venostasis . ID on consult 3. Acute kidney injury secondary to suspected ATN from patient's sepsis kidney function has since improved 4. Chronic kidney disease stage IV secondary to diabetic nephropathy 5. Chronic bilateral lymphedema both lower extremities 6. Diabetes mellitus type II: Controlled with complications including diabetic neuropathy, Placed on long acting insulin, Accu-Cheks a.c. and at bedtime and covered with sliding scale insulin 7. Peripheral vascular disease 8. Chronic diabetic neuropathy both lower extremities 9. Hypertension-blood pressure controlled, home medications continued with dose adjustment as needed 10. Coronary artery disease and history of coronary artery bypass surgery 11. Dyslipidemia-patient is on statin therapy, continued at home dose 12. GERD on PPI 10. Pulmonary hypertension: 11. Anemia secondary to anemia of chronic disorder patient was transfused with 1 unit PRBC since patient was deemed to be symptomatic 12. Hyperkalemia treated per protocol; potassium levels have since normalized 10. Chronic hypoxic respiratory failure patient is on baseline home O2 14. Morbid obesity with BMI of 32.1 lifestyle modification including weight loss advised 15. DVT prophylaxis SC heparin Home Medications: Medications to take at Discharge Aspirin [Aspirin, Baby] 81 mg PO DAILY@0800 10/20/14 Ferrous Gluconate 325 mg PO DAILY@0800 10/21/14 Metoprolol Tartrate [Lopressor (beta apryl)] 100 mg PO BID 10/21/14 Pantoprazole Sodium [Protonix] 40 mg PO BID 10/21/14 Rosuvastatin Calcium [Crestor] 2.5 mg PO QHS 10/21/14 Nitroglycerin [Nitrostat] 0.4 mg SUBLINGUAL Q5M PRN 11/24/14 Gabapentin [Neurontin] 100 mg PO BID 07/02/15 Ergocalciferol [Vitamin D] 50,000 units PO SA 02/16/16 Niacinamide [Niacin] 500 mg PO BID 02/16/16 Montelukast Sodium [Singulair] 10 mg PO QHS 05/06/16 Ondansetron [Zofran Odt] 8 mg PO Q6H PRN PRN 03/31/17 Amlodipine [Norvasc] 5 mg PO DAILY 10/12/17 Clopidogrel Bisulfate [Plavix] 75 mg PO DAILY #30 tab 10/16/17 Isosorbide Mononitrate [Imdur] 60 mg PO DAILY #30 tab 10/16/17 Insulin Lispro [Humalog KwikPen] 15 unit SC TIDAC insuln.pen 12/30/17 Insulin Lispro [Humalog KwikPen] See Protocol SC ACHS insuln.pen 12/30/17 Alpha Lipoic Acid 600 mg PO QHS 01/24/18 Furosemide [Lasix] 40 mg PO DAILY 01/24/18 Insulin Glargine [Lantus SoloStar Pen] 45 units SC QHS 01/24/18 Acetaminophen [Tylenol Tablet] 650 mg PO Q6H PRN PRN tablet 01/28/18 Albuterol Aerosols [Ventolin Aerosols] 2.5 mg INHALATION Q2H PRN PRN vial.neb. 01/28/18 Primary Care Physician: Kim Field MD [Primary Care Provider] - Please follow up with your Primary Care Physician in: in 1-2 weeks Disposition: Care Home facility Minutes spent on discharge:: 35 Patient Condition:: Stable Medical Necessity - Tobacco Use Smoking Status: Never smoker Meaningful Use Info Meaningful Use Diagnoses (Choose all that apply): None applicable Code Visit Inpatient E&M: 42618 Disch Hosp
--- NOTE | 2018-01-28 15:08 | DS.PCM_ITS ---
Discharge Date and Diagnosis Date of Admission: 01/24/18 Date of Discharge: 01/28/18 - Primary Discharge Diagnosis Sepsis secondary to healthcare acquired pneumonia and bilateral cellulitis - Secondary Discharge Diagnosis Chronic Problems Ulcer of right lower extremity with fat layer exposed (Chronic) anterior lower extremity ulcer Venous insufficiency of both lower extremities (Chronic) Other specified peripheral vascular diseases (Chronic) Ulcer of left lower extremity with fat layer exposed (Chronic) Ulcer of right lower extremity with fat layer exposed (Chronic) Delayed wound healing (Chronic) Maceration of skin (Chronic) Acquired deformity of toe of both feet (Chronic) Type 2 diabetes mellitus with diabetic peripheral angiopathy without gangrene ( Chronic) Lymphedema in adult patient (Chronic) Noncompliance with treatment regimen (Chronic) 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) Aortic stenosis, mild (Chronic) Pulmonary arterial hypertension (Chronic) Pulmonary nodules (Chronic) Cholelithiasis (Chronic) Tricuspid regurgitation (Chronic) History of esophageal reflux (Chronic) History of hyperlipidemia (Chronic) History of hypertension (Chronic) S/P CABG (coronary artery bypass graft) (Chronic) Obesity (BMI 30.0-34.9) (Chronic) Stasis dermatitis of both legs (Chronic) 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 Sepsis secondary to healthcare associated pneumonia with suspected gram- negative organisms patient was management exact time as well as cefepime consultation was placed to Dr. Marquez with infectious diseases note and recommendations reviewed. 2. Acute acute on chronic recurrent cellulitis of both lower extremities with multi-microbial organisms( group C streptococcus, staph aureus as well as Proteus in the context of chronic venostasis . ID on consult 3. Acute kidney injury secondary to suspected ATN from patient's sepsis kidney function has since improved 4. Chronic kidney disease stage IV secondary to diabetic nephropathy 5. Chronic bilateral lymphedema both lower extremities 6. Diabetes mellitus type II: Controlled with complications including diabetic neuropathy, Placed on long acting insulin, Accu-Cheks a.c. and at bedtime and covered with sliding scale insulin 7. Peripheral vascular disease 8. Chronic diabetic neuropathy both lower extremities 9. Hypertension-blood pressure controlled, home medications continued with dose adjustment as needed 10. Coronary artery disease and history of coronary artery bypass surgery 11. Dyslipidemia-patient is on statin therapy, continued at home dose 12. GERD on PPI 10. Pulmonary hypertension: 11. Anemia secondary to anemia of chronic disorder patient was transfused with 1 unit PRBC since patient was deemed to be symptomatic 12. Hyperkalemia treated per protocol; potassium levels have since normalized 10. Chronic hypoxic respiratory failure patient is on baseline home O2 14. Morbid obesity with BMI of 32.1 lifestyle modification including weight loss advised 15. DVT prophylaxis SC heparin Home Medications: Medications to take at Discharge Aspirin [Aspirin, Baby] 81 mg PO DAILY@0800 10/20/14 Ferrous Gluconate 325 mg PO DAILY@0800 10/21/14 Metoprolol Tartrate [Lopressor (beta apryl)] 100 mg PO BID 10/21/14 Pantoprazole Sodium [Protonix] 40 mg PO BID 10/21/14 Rosuvastatin Calcium [Crestor] 2.5 mg PO QHS 10/21/14 Nitroglycerin [Nitrostat] 0.4 mg SUBLINGUAL Q5M PRN 11/24/14 Gabapentin [Neurontin] 100 mg PO BID 07/02/15 Ergocalciferol [Vitamin D] 50,000 units PO SA 02/16/16 Niacinamide [Niacin] 500 mg PO BID 02/16/16 Montelukast Sodium [Singulair] 10 mg PO QHS 05/06/16 Ondansetron [Zofran Odt] 8 mg PO Q6H PRN PRN 03/31/17 Amlodipine [Norvasc] 5 mg PO DAILY 10/12/17 Clopidogrel Bisulfate [Plavix] 75 mg PO DAILY #30 tab 10/16/17 Isosorbide Mononitrate [Imdur] 60 mg PO DAILY #30 tab 10/16/17 Insulin Lispro [Humalog KwikPen] 15 unit SC TIDAC insuln.pen 12/30/17 Insulin Lispro [Humalog KwikPen] See Protocol SC ACHS insuln.pen 12/30/17 Alpha Lipoic Acid 600 mg PO QHS 01/24/18 Furosemide [Lasix] 40 mg PO DAILY 01/24/18 Insulin Glargine [Lantus SoloStar Pen] 45 units SC QHS 01/24/18 Acetaminophen [Tylenol Tablet] 650 mg PO Q6H PRN PRN tablet 01/28/18 Albuterol Aerosols [Ventolin Aerosols] 2.5 mg INHALATION Q2H PRN PRN vial.neb. 01/28/18 Primary Care Physician: Kim Field MD [Primary Care Provider] - Please follow up with your Primary Care Physician in: in 1-2 weeks Disposition: Shelter facility Minutes spent on discharge:: 35 Patient Condition:: Stable Medical Necessity - Tobacco Use Smoking Status: Never smoker Meaningful Use Info Meaningful Use Diagnoses (Choose all that apply): None applicable Code Visit Inpatient E&M: 45730 Disch Hosp
--- NOTE | 2018-01-28 15:33 | CASEMGMT ---
Social Work SW spoke with physicians and pt is ready for d/c today. Spoke Vicky at [facility] and they are able to accept back. Met with pt in room and she is agreeable to discharge and would prefer to [facility]. Transportion arranged for 3:45 pickup by wheelchair van. Phone call to Vicky and provided admission time. Orders faxed. No further sw needs. Plan: return to [facility] AYDIN Lloyd
== END 2018-01-28 15:58 | disposition skilled nursing facility (03) | DRG 416 ==
LOC: ED 15:33 → PCU 16:38
PROVIDERS: Admitting Provider Hospitalist; Emergency Provider Emergency Medicine; Family Provider Internal Medicine; PCP Internal Medicine; Visit Provider Internal Medicine
DX: A41.9 Sepsis, unspecified organism (principal); L03.115 Cellulitis of right lower limb; J18.9 Pneumonia, unspecified organism; E87.5 Hyperkalemia; N17.0 Acute kidney failure with tubular necrosis; J96.11 Chronic respiratory failure with hypoxia; I08.2 Rheumatic disorders of both aortic and tricuspid valves; D69.6 Thrombocytopenia, unspecified; N18.3 Chronic kidney disease, stage 3 (moderate); L03.116 Cellulitis of left lower limb; Y95 Nosocomial condition; I25.10 Atherosclerotic heart disease of native coronary artery without angina pectoris; Z99.81 Dependence on supplemental oxygen; I87.2 Venous insufficiency (chronic) (peripheral); E78.5 Hyperlipidemia, unspecified; I89.0 Lymphedema, not elsewhere classified; E11.22 Type 2 diabetes mellitus with diabetic chronic kidney disease; B95.4 Other streptococcus as the cause of diseases classified elsewhere; Z79.4 Long term (current) use of insulin; B95.61 Methicillin susceptible Staphylococcus aureus infection as the cause of diseases classified elsewhere; Z95.1 Presence of aortocoronary bypass graft; B96.4 Proteus (mirabilis) (morganii) as the cause of diseases classified elsewhere; D63.8 Anemia in other chronic diseases classified elsewhere; E66.01 Morbid (severe) obesity due to excess calories; Z68.32 Body mass index [BMI] 32.0-32.9, adult; K21.9 Gastro-esophageal reflux disease without esophagitis; I12.9 Hypertensive chronic kidney disease with stage 1 through stage 4 chronic kidney disease, or unspecified chronic kidney disease; E11.51 Type 2 diabetes mellitus with diabetic peripheral angiopathy without gangrene; E11.40 Type 2 diabetes mellitus with diabetic neuropathy, unspecified; Z79.899 Other long term (current) drug therapy
CPT/HCPCS: 36415; 71045; 80048; 80076; 81001; 82962; 83605; 83690; 83880; 85025; 86850; 86900; 86920; 86922; 87040; 87070; 87077; 87086; 87186; 87205; 93005; 94640; 94667; 94668; 97110; 97162; 97166; 97530; 97802; 99285; J7030; J7040; J7050; P9016; A4216; J0696

== ENCOUNTER 2018-03-17 01:14 | Inpatient (IN) | payer MEDICAID, SELFPAY ==
[2018-03-17] VITALS (20 sets, daily range): BP systolic 118–155; BP diastolic 52–80; PULSE 53–142; RESP 16–20; TEMP 36.5–38.2; O2SAT 91–100; BMI 31.2; BMI 31.1
--- NOTE | 2018-03-17 01:35 | RAD_ITS ---
STUDY: X-RAY CHEST REASON FOR EXAM: Female, 67 years old. Fever TECHNIQUE: Single AP portable view of the chest. COMPARISON: 01/28/2018 FINDINGS: Mild patchy airspace infiltration throughout bilateral lung bases, slightly worsened compared to prior imaging. No pleural effusion or pneumothorax. Normal size heart. Median sternotomy wires and coronary artery bypass graft clips noted. Normal mediastinum and kel. Normal visualized pulmonary arteries. There is atherosclerotic calcification of the aortic arch. Normal visualized thoracic spine. Normal visualized ribs, clavicles, and shoulders. There is no demonstrated abnormality of the visualized soft tissue structures of the upper abdomen. RAD/Chest 1 View (Portable) IMPRESSION: Bibasilar atelectasis versus infiltrate. Electronically Signed: Rashaad Doty MD at 2:18 EDT Tel , Service support ,
[2018-03-17 01:56] LABS: Absolute Lymphocyte Count 1.02 X10^3/ul (0.83-4.51); Absolute Neutrophil Count 18.8 X10^3/uL (2.0-7.7); Basophil# 0.01 X10^3/uL; Eosinophil# 0.05 X10^3/uL; Eosinophils% 0.2 % (0-5); Hemoglobin 9.3 g/dl (12.0-15.0); Lymphocyte # 1.02 X10^3/ul (4.0); Mean Corpuscular Hgb 28.6 pg (27.0-32.0); Mean Corpuscular Volume 92.3 fL (81-99); Mean Platelet Vol. 9.6 fl (6.2-12.0); Monocyte% 3.4 % (0-10); Neutrophil # 18.77 X10^3/uL (2.7-7.7); Neutrophil % 91.3 % (47-70); Platelet Count 154 K/mm3 (150-450); RBC Distribution Width CV 15.1 % (11.6-14.6); RBC Distribution Width SD 51.2 fl (35.1-43.9); Red Blood Count 3.25 M/mm3 (4.2-5.4); White Blood Count 20.6 K/mm3 (4.4-11.0)
[2018-03-17 01:58] LABS: POSITIVE COUNT NO; POSITIVE DIFFERENTIAL NO; POSITIVE MORPHOLOGY NO
[2018-03-17 02:06] LABS: Lactic Acid 0.8 mmol/L (0.4-2.0)
[2018-03-17 02:12] LABS: Anion Gap 9 (5-15); BUN 115 mg/dL (7-18); BUN/Creat Ratio 40.9 RATIO (10-20); Calcium,Total 7.9 mg/dL (8.5-10.1); Chloride 103 mmol/L (98-107); Creatinine, Serum 2.81 mg/dL (0.55-1.02); EST Glomerular Filtration Rate 18 mL/min (>60); Est Glom Filt Rate - Afr Amer 22 mL/min (>60); Glucose 98 mg/dL (74-106); Potassium 4.8 mmol/L (3.5-5.1); Sodium Level 138 mmol/L (136-145)
--- NOTE | 2018-03-17 02:18 | ED.RN ---
PT BEING TX BY WOUND NURSE AT [facility]. DR. LOERA UNWRAPPED PT DRESSINGS. ASSESSED BILATERAL LEG WOUNDS. PT WITH REDNESS, SWELLING, AND SKIN FLAKING. PULSES PALPABLE. PT REPORTS SENSATION IN FEET. PT LEGS REWRAPPED WITH TELFA AND DRY STERILE GAUZE WRAP. PT TOLERATED WELL.
--- NOTE | 2018-03-17 02:22 | SUR.HOLD ---
LAB CALLED WITH CRITICAL BUN 115. DR. LOERA INFORMED.
--- NOTE | 2018-03-17 02:34 | ED.DCSUM_ITS ---
- ER Visit Summary Date of Service: 03/17/18 Chief Complaint: Fever and chills History of Present Illness: The patient is a 67 F who presents with flulike symptoms. Over the past few days she has complained of fever and chills. She states they have checked her temperature at the nursing facility but she does not know what it is been. She also has congestion rhinorrhea sore throat and cough. She complains of muscle aches and joint aches. She complains of bilateral leg pain but notes a history of chronic diabetic neuropathy and chronic pain in her legs. She had laboratory studies today which showed a white blood cell count of 24,000 so was sent here to the emergency department for further evaluation. She has been receiving wound care on her bilateral legs. Physical Examination: Afebrile normal heart rate vital signs notable for pulse oximetry of 94% on 2 L nasal cannula Moist mucous membranes Heart regular rate and rhythm Lungs are clear Abdomen soft nontender nondistended Both legs were wrapped in gauze dressings. She has significant dermatitis and skin breakdown she has cellulitis of the bilateral extremities which is significantly worse on the right Alert Normal affect No distress calm and cooperative Test Results: Labs notable for white blood cell count 20.6. Chemistries notable for BUN of 115 and creatinine of 2.81. Lactic acid is normal. Blood cultures have been sent. Urinalysis pending at the time of this dictation. Chest x-ray shows bibasilar atelectasis versus infiltrate. Emergency Department Course and Treatment: Patient was treated with IV fluids Ancef and vancomycin for lower extremity cellulitis. Patient also has respiratory symptoms and questionable infiltrate on chest x-ray. On my review I did not appreciate an obvious infiltrate. The Ancef and vancomycin that she received previously should provide significant pulmonary coverage as well. Patient to be discussed with the hospitalist and admitted. She remains hemodynamically stable on reevaluation. Treatment Plan: [] Disposition: Admit Impression: Bilateral lower extremity cellulitis Uremia Sepsis syndrome This note was generated with [employer] dictation software. It may contain incorrect words, spelling, and punctuation that were not noted in review of the chart prior to signing ED Disposition - Plan for ED Patient: Chief Complaint: General Illness Referrals: Kim Field MD [Primary Care Provider] -
[2018-03-17] MEDS: Cefazolin 2 GM in 0.9% Normal Saline 100 ML IV (02:35)
[2018-03-17] MEDS: 0.9% Normal Saline 1,000 ML 999 ML IV ×2 (02:44)
--- NOTE | 2018-03-17 02:44 | HP.PCM_ITS ---
Problem List (1) Bilateral cellulitis of lower leg Status: Acute (2) Acute on chronic respiratory failure with hypoxemia Status: Acute (3) Flu-like symptoms Status: Acute (4) CKD stage 3 secondary to diabetes Status: Chronic (5) H/O coronary artery bypass surgery Status: Chronic Comment: CABG x 3 STORY-LAD, SVG-RCA, SVG-Cx 2007 History of Present Illness Date of Admission: 03/17/18 Chief Complaint: Flulike symptoms The patient is a 67 year old F with a significant history of CAD status post CABG; hypertension; diabetes; GERD; hypercholesterolemia; CKD stage III; diabetic nephropathy; diastolic heart failure; chronic bilateral wound and venous stasis who presents with flulike symptoms; and abnormal labs. Her flulike symptoms include fever, chills, body aches, nausea, vomiting, cough with clear sputum, and nasal congestion. [facility]. Because outpatient white count was 24,000 and patient had a fever so she was brought to the emergency department. Her symptoms has been going on for about 3 days. As stated above patient has bilateral chronic wound on both legs for which reason she sees a wound care nurse. Patient reported that she began to have right leg problems after a vein graft for CABG. At the [facility] where patient lives, she has been on on and off oxygen. Reportedly she has been needing oxygen frequently than she used to. Past Medical History Past Medical History (Chronic Problems): Chronic Problems (Last Reviewed 03/17/18 @ 05:40 by Jay Nieto MD) Hyperlipidemia (Chronic) Hypertension (Chronic) H/O coronary artery bypass surgery (Chronic ~2007) CABG x 3 STORY-LAD, SVG-RCA, SVG-Cx 2007 Atherosclerosis of coronary artery of [place] heart without angina pectoris ( Chronic) CABG x 3 STORY-LAD, SVG-RCA, SVG-Cx 2007 Nonrheumatic tricuspid valve regurgitation (Chronic) Secondary pulmonary arterial hypertension (Chronic) Non-rheumatic aortic stenosis (Chronic) Ulcer of right lower extremity with fat layer exposed (Chronic) anterior lower extremity ulcer Venous insufficiency of both lower extremities (Chronic) Other specified peripheral vascular diseases (Chronic) Ulcer of left lower extremity with fat layer exposed (Chronic) Delayed wound healing (Chronic) Maceration of skin (Chronic) Type 2 diabetes mellitus with diabetic peripheral angiopathy without gangrene ( Chronic) Lymphedema in adult patient (Chronic) Noncompliance with treatment regimen (Chronic) Pulmonary nodules (Chronic) Obesity (BMI 30.0-34.9) (Chronic) 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) Thrombocytopenia (Chronic) Medical History: Medical History (Last Reviewed 03/17/18 @ 05:40 by Jay Nieto MD) Hyperlipidemia (Chronic) E78.5 Hypertension (Chronic) I10 Atherosclerosis of coronary artery of [place] heart without angina pectoris ( Chronic) I25.10 CABG x 3 STORY-LAD, SVG-RCA, SVG-Cx 2007 Nonrheumatic tricuspid valve regurgitation (Chronic) I36.1 Secondary pulmonary arterial hypertension (Chronic) I27.21 Non-rheumatic aortic stenosis (Chronic) I35.0 Venous insufficiency of both lower extremities (Chronic) I87.2 Type 2 diabetes mellitus with diabetic peripheral angiopathy without gangrene ( Chronic) E11.51 Obesity (BMI 30.0-34.9) (Chronic) E66.9 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) E11.22, N18.3 GERD (gastroesophageal reflux disease) K21.9 Peripheral neuropathy G62.9 Allergies Penicillins Allergy (Verified 03/17/18 01:20) Rash rosiglitazone maleate [From Avandia] Allergy (Verified 03/17/18 01:20) Swelling & diarrhea simvastatin [From Zocor] Allergy (Verified 03/17/18 01:20) Muscle weakness atorvastatin calcium [From Lipitor] Adverse Reaction (Verified 03/17/18 01:20) Muscle weakness esomeprazole magnesium [From Nexium] Adverse Reaction (Verified 03/17/18 01:20) Diarrhea lansoprazole [From Prevacid] Adverse Reaction (Verified 03/17/18 01:20) Diarrhea Sulfa (Sulfonamide Antibiotics) Adverse Reaction (Verified 03/17/18 01:20) Nausea/Vom/Diarrhea from PCP office records Home Medications: Ambulatory Orders Medication Instructions Recorded Aspirin [Aspirin, Baby] 81 mg PO DAILY@0810/20/14 Ferrous Gluconate 325 mg PO DAILY@0810/21/14 Metoprolol Tartrate [Lopressor 100 mg PO BID 10/21/14 (beta apryl)] Pantoprazole Sodium [Protonix] 40 mg PO BID 10/21/14 Rosuvastatin Calcium [Crestor] 2.5 mg PO QHS 10/21/14 Nitroglycerin [Nitrostat] 0.4 mg SUBLINGUAL Q5M PRN 11/24/14 Gabapentin [Neurontin] 100 mg PO BID 07/02/15 Ergocalciferol [Vitamin D] 50,000 units PO SA 02/16/16 Niacinamide [Niacin] 500 mg PO BID 02/16/16 Montelukast Sodium [Singulair] 10 mg PO QHS 05/06/16 Ondansetron [Zofran Odt] 8 mg PO Q6H PRN PRN 03/31/17 Amlodipine [Norvasc] 5 mg PO DAILY 10/12/17 Clopidogrel Bisulfate [Plavix] 75 mg PO DAILY #30 tab 10/16/17 Isosorbide Mononitrate [Imdur] 60 mg PO DAILY #30 tab 10/16/17 Insulin Lispro [Humalog KwikPen] 15 unit SC TIDAC insuln.pen 12/30/17 Insulin Lispro [Humalog KwikPen] See Protocol SC ACHS insuln.pen 12/30/17 Alpha Lipoic Acid 600 mg PO QHS 01/24/18 Furosemide [Lasix] 40 mg PO DAILY 01/24/18 Insulin Glargine [Lantus SoloStar 45 units SC QHS 01/24/18 Pen] Acetaminophen [Tylenol Tablet] 650 mg PO Q6H PRN PRN tab 01/28/18 Albuterol Aerosols [Ventolin 2.5 mg INHALATION Q2H PRN PRN 01/28/18 Aerosols] vial.neb. Argin/Glut/Cahmb/Collag/Mv-Min 1 each PO BID 03/17/18 [Jerod Packet] Cetirizine HCl [Zyrtec] 10 mg PO DAILY PRN 03/17/18 DiphenhydrAMINE [Benadryl] 25 mg PO TID PRN PRN 03/17/18 Hydrocortisone 2.5% Crm [Hytone] 1 applic TOPICAL DAILY 03/17/18 Surgical History: Surgical History (Last Reviewed 03/17/18 @ 05:40 by Jay Nieto MD) H/O coronary artery bypass surgery (Chronic) Onset Date: ~2007 Z95.1 CABG x 3 STORY-LAD, SVG-RCA, SVG-Cx [address] Z96.21 History of left heart catheterization Onset Date: 10/15/17 Z98.890 STORY graft to the Mid LAD is patent Saphenous Vein graft to the CIRC is totally occluded Saphenous Vein graft to the Distal RCA is patent history of right femoral bypass surgery Surgical History: coronary bypass surgery, - - Right femoral bypass surgery, cochlear impants Psychiatric History: No pertinent psych hx [employer]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: No pertinent SUPERVIS[employer]ACT[employer] history Lives: [facility] Smoking Status: Former smoker Alcohol: None - *Family History Sibling Family History: Family History (Last Reviewed 03/17/18 @ 05:41 by Jay Nieto MD) Other CAD (coronary artery disease) History Items: Heart Disease Maternal Family History: Family History (Last Reviewed 03/17/18 @ 05:41 by Jay Nieto MD) Other CAD (coronary artery disease) History Items: No pertinent history Paternal Family History: Family History (Last Reviewed 03/17/18 @ 05:41 by Jay Nieto MD) Other CAD (coronary artery disease) History Items: No pertinent history Review of Systems Constitutional: Reports: Chills, Fever, Malaise HEENT: Reports: Sinus Congestion Cardiovascular: Denies: Chest Pain, Palpitations Respiratory: Reports: Cough, Sputum production - Clear Gastrointestinal: Reports: Nausea, Vomiting - x 1. Denies: Abdominal Pain Genitourinary: Denies: Dysuria Musculoskeletal: Denies: Joint Pain, Joint Tenderness Skin: Reports: Wounds - Bilateral legs Neurological: Denies: Numbness, Tingling, Focal weakness Psychiatric: Denies: Anxiety, Depression, Homicidal Ideations, Suicidal Ideations Hematologic/ Lymphatic: Denies: Easy Bruising, Easy Bleeding VTE Information - Inpt Only VTE Present on Admission: No VTE Mechan Device Prophylaxis: None VTE Pharm Prophylaxis ordered?: Yes Patient Problems: Active and Suspected Problems (Last Reviewed 03/17/18 @ 05:40 by Jay Nieto MD) Bilateral cellulitis of lower leg (Acute) Acute on chronic respiratory failure with hypoxemia (Acute) Flu-like symptoms (Acute) - Physical Exam General: Alert, Oriented x3, Cooperative HEENT: Atraumatic, PERRLA, EOMI, Normocephalic Neck: Supple, No JVD, Negative Carotid Bruits Lungs: Clear to auscultation, Normal air movement Cardiovascular: Regular rate, No murmurs Abdomen: Bowel Sounds Present, Soft, Non Tender Extremities: No edema, Capillary Refill Less than 3 Seconds Skin: No rashes, No breakdown, - - Bilateral leg redness with multiple areas of excoriation. Stage II pressure ulcer on coccyx and area of redness on the buttocks. Musculoskeletal: No Muscle Wasting Lymphatic: No Cervical, Supraclavicular, or Inguinal Adenopathy Neurological: Cranial nerves II-XII grossly intact Psych/Mental Status: Normal Affect, Appropriate Vital Signs Temp Pulse Resp BP Pulse Ox 99.1 F 84 18 141/52 H 94 03/17/18 01:16 03/17/18 01:16 03/17/18 01:16 03/17/18 01:16 03/17/18 01:16 Oxygen Flow Rate (L/min) 2 Oxygen Delivery Method Nasal Cannula Weight: 93.3 kg Body Mass Index (BMI) 31.2 Finger Stick Blood Glucose 262 Laboratory Tests Past 24 Hrs 03/17/18 03/17/18 03/17/18 01:30 01:30 01:30 WBC 20.6 H RBC 3.25 L Hgb 9.3 L Hct 30.0 L MCV 92.3 MCH 28.6 MCHC 31.0 L RDW 15.1 H RDW Differential 51.2 H Plt Count 154 MPV 9.6 Immature Gran % (Auto) 0.100 Neut % (Auto) 91.3 H Lymph % (Auto) 5.0 L [place] % (Auto) 3.4 Eos % (Auto) 0.2 Baso % (Auto) 0.0 Absolute Neuts (auto) 18.8 H Absolute Lymphs (auto) 1.02 Total Counted Not Reportable Sodium 138 Potassium 4.8 Chloride 103 Carbon Dioxide 26.0 Anion Gap 9 BUN 115 H* Creatinine 2.81 H Estim Creat Clear Calc 19.60 Est GFR (MDRD) Af Amer 22 L Est GFR (MDRD) Non-Af 18 L BUN/Creatinine Ratio 40.9 H Glucose 98 Lactic Acid 0.8 Calcium 7.9 L Assessment/Plan All Active Problems (Last Reviewed 03/17/18 @ 05:40 by Jay Nieto MD) Bilateral cellulitis of lower leg (Acute) Acute on chronic respiratory failure with hypoxemia (Acute) Flu-like symptoms (Acute) BRBPR (bright red blood per rectum) (Resolved) C. difficile colitis (Resolved) Cholelithiasis (Resolved) Hyperkalemia (Resolved) The patient is a 67 year old F with a significant history of CAD status post CABG; hypertension; diabetes; GERD; hypercholesterolemia; CKD stage III; diabetic nephropathy; diastolic heart failure; chronic bilateral wound and venous stasis who presents with fever; flulike symptoms; leukocytosis; reportedly increased pain in her right leg; as well as a severely elevated BUN and creatinine. Bilateral leg cellulitis Patient with a fever of 100.8. White count while outpatient was 24,000. WBC at emergency department was 20, 600.; Neutrophilic predominance with lymphopenia. Patient has chronic venous stasis. With a fever and leukocytosis; and reportedly increased pain especially in the right leg it is possible that she has cellulitis especially in her right leg. Her right leg was not tender at all ; however she has a history of diabetic nephropathy. Her bilateral leg symptoms could be purely venostasis without any cellulitis at all. In any case because of a fever and leukocytosis with no other clear cause of infection will treat for cellulitis. Patient received vancomycin and cefazolin at the emergency department. We will continue vancomycin for MRSA. Serum MRSA DNA ordered Since the patient goes to wound care; she is at risk for Pseudomonas. Patient is allergic to penicillin. She reports itching and rash with penicillin. Patient received cefazolin at emergency department. Will cover patient for Pseudomonas with cefepime. Blood cultures are pending Wound care consult We will consult infectious disease to optimize management. . Flulike symptoms. It could be bilateral leg cellulitis causing flulike symptoms. However, she could also have some sort of viral infection. Supportive treatment with IV fluids. Respiratory pathogen panel ordered. Flonase ordered. On home cetirizine. Loratadine ordered. KIM on CKD. Her BUN on admission was severely elevated at 115. Her BUN on 01/27/2018 was 62. Her creatinine on admission was 2.81. In our records her baseline creatinine is presumably is ~ 1.2-1.5; but she has had episode of very high creatinine above this supposed baseline but not as high as 2.81. Her BUN over creatinine ratio is more than 20. Likely this is prerenal Patient received IV bolus at emergency department. Nurse reported that while patient was receiving IV fluid bolus carried on from the emergency department to the floor; she was having increased respiratory distress. IV fluid bolus was discontinued. Patient is on po Lasix at home. Independent review of chest x-ray confirms infiltration throughout bilateral lungs. It is possible that her KIM is secondary to cardiorenal syndrome as patient carries a diagnosis of diastolic heart failure. Urine sodium, urine creatinine and urine urea ordered. Lasix 80 mg IV ?1 given. Please assess patient for further need of diuretic therapy. 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 Will consult Dr. Haynes to optimize management of KIM on CKD. Acute on chronic hypoxemic respiratory failure. ABG ordered Patient has a diagnosis of diastolic dysfunction. It is likely that her shortness of breath could be from a diastolic dysfunction especially as she has a congestion on x-ray. BNP was not ordered in the setting of kidney disease which will make results difficult to interpret. Echocardiogram ordered. Diuresis with Lasix. Type 2 diabetes with diabetic nephropathy On admission her blood glucose was 98; acceptable range. Patient takes Lantus 45 units every night at the detention; and lispro 15 units 3 times daily as well as a correction scale insulin with lispro. Started on reduced dose of her prandial and basal insulin. A correction scale insulin added. Cardiac diet with no concentrated sweets. Patient is on a gabapentin 100 mg p.o. twice daily; continue. Hypocalcemia On admission her calcium was 7.9. We will check albumin level. Pressure ulcers Calmoseptine to areas on buttocks. Wound care consult. CAD status post CABG Aspirin, Plavix metoprolol tartrate, Imdur continued. Hypertension On admission blood pressure was fairly controlled. Continue metoprolol tartrate and Imdur. Lasix p.o. escalated to IV due to fluid congestion as above. DVT prophylaxis Subcutaneous heparin. Miscellaneous: Nystatin powder for skin folds Code Visit Inpatient E&M: 92756 Init Hosp L3
[2018-03-17 03:03] LABS: Bacteria 0 SEEN /hpf (None Seen); Mucous, Urine 0 SEEN /hpf (<or=2+); Red Blood Cells-Urine 0 SEEN /hpf (0-5); Squamous Epithelial Cells - UA 0 SEEN /hpf (5-10)
[2018-03-17 03:14] LABS: Color, Urine Yellow (Yellow); Glucose, Dipstick Normal (Normal); Ketone-Dipstick Negative (Negative); Leukocyte Esterase-Dipstick 100 /ul (Negative); Nitrite-Dipstick Negative (Negative); Occult Blood-Urine 50 /ul (Negative); Protein-Dipstick 100 mg/dl (Negative); Urine Bilirubin Dipstick Negative (Negative); Urine Clarity Clear (Clear); Urine Urobilinogen Normal (Normal)
[2018-03-17 03:29] LABS: Hyaline Cast 0-5 SEEN /lpf (0-5)
[2018-03-17 03:30] LABS: White Blood Cells 10-25 SEEN /hpf (0-5)
--- NOTE | 2018-03-17 04:46 | PCM.RX.CS ---
Consult Pharmacy has been consulted to manage selected antiobiotic: Vancomycin Type of Consult: New start Suspected Infection: Skin/Soft tissue Labs: Sodium 138 mmol/L (136-145) 03/17/18 01:30 Potassium 4.8 mmol/L (3.5-5.1) 03/17/18 01:30 Chloride 103 mmol/L (98-107) 03/17/18 01:30 Carbon Dioxide 26.0 mmol/L (21.0-32.0) 03/17/18 01:30 Anion Gap 9 (5-15) 03/17/18 01:30 BUN 115 mg/dL (7-18) H* 03/17/18 01:30 Creatinine 2.81 mg/dL (0.55-1.02) H 03/17/18 01:30 Est GFR (MDRD) Af Amer 22 mL/min (>60) L 03/17/18 01:30 Est GFR (MDRD) Non-Af 18 mL/min (>60) L 03/17/18 01:30 BUN/Creatinine Ratio 40.9 RATIO (10-20) H 03/17/18 01:30 Glucose 98 mg/dL (74-106) 03/17/18 01:30 Goal Trough: 10-15 mcg/mL Pharmacy Plan for Drug Dosing: Pharmacy Service will continue to monitor and adjust dosing as required. Medications Vancomycin HCl 750 mg/ Sodium (Chloride) 265 mls @ 250 mls/hr IV Q24H DIANELYS Follow-Up Labs: Trough Vancomycin Labs to be done on [date and time ordered]: 03/20 @ 0200
[2018-03-17 05:07] LABS: Urea Nitrogen, Urine 815 mg/dL (NO RANGE EST.); Urine Sodium 13 mmol/L (Not Establ.)
--- NOTE | 2018-03-17 05:28 | ECHOD_ITS ---
Reason For Study: CHF Procedure This was a 2D Doppler, Color Flow transthoracic echocardiogram. The study was technically difficult. PT SCANNED SITTING IN CHAIR. Exam performed portable in patient room. Left Ventricle Normal size and thickness. The estimated ejection fraction is 65 %. Stage 1 diastolic dysfunction. No regional wall motion abnormalities noted. Right Ventricle Normal size and thickness. Normal systolic function. Atria The left atrium is mildly enlarged. Normal right atrium. Normal atrial septum. Mitral Valve Mild diffuse mitral valve thickening. Mild mitral annular calcification extending into the posterior leaflet. Tricuspid Valve Normal tricuspid valve. Mild to moderate (1-2+) tricuspid valve insufficiency. Right ventricular systolic pressure estimated to be 39 mmHg. Aortic Valve Trisinus/trileaflet aortic valve. Moderate focal aortic valve thickening. Moderate focal aortic valve calcification. Moderate restriction of the aortic valve. Moderate aortic stenosis. Peak aortic valve gradient 38 mmHg. Mean aortic valve gradient 22 mmHg. Calculated aortic valve area (continuity equation) is 1.2 cm2. Pulmonic Valve The pulmonic valve is not well visualized. Great Vessels Normal aortic root. Mild atherosclerosis of the aortic arch. Normal inferior vena cava. Inferior vena cava collapse with sniff. Pericardium/Pleural No pericardial effusion. Medication Diluted definity 2ml given slow IV push to enhance endocardial definition. MMode/2D Measurements & Calculations LVIDd: 5.0 cm IVSd: 1.2 cm LVOT diam: 2.0 cm LVIDs: 2.9 cm LVPWd: 1.1 cm LVOT area: 3.0 cm2 FS: 42.5 % Ao root diam: 3.1 cm LAV(MOD-bp): 63.9 ml LA A4 area: 22.2 cm2 LA dimension: 4.2 cm LAV(MOD-bp) Indexed: 30.9 ml/m2 LAV(MOD-sp2): 47.6 ml LAV(MOD-sp4): 66.1 ml RA A4 area: 14.5 cm2 Doppler Measurements & Calculations MV E max dominick: 103.6 cm/sec Lat Peak E' Dominick: 6.1 cm/sec Med Peak E' Dominick: 5.6 cm/sec MV A max dominick: 99.7 cm/sec E/E' lat: 17.0 E/E' med: 18.6 MV E/A: 1.0 Ao V2 max: 306.8 cm/sec LV V1 max: 117.6 cm/sec SV(LVOT): 75.3 ml Ao max P.7 mmHg LV V1 max P.5 mmHg Ao V2 mean: 222.3 cm/sec LV V1 mean P.3 mmHg Ao mean P.0 mmHg LV V1 mean: 86.5 cm/sec Ao V2 VTI: 65.3 cm LV V1 VTI: 24.9 cm VIBHA(I,D): 1.2 cm2 VIBHA(V,D): 1.2 cm2 PA V2 max: 141.2 cm/sec TR max dominick: 292.8 cm/sec TR max P.3 mmHg Interpretation Summary The estimated ejection fraction is 65 %. Stage 1 diastolic dysfunction. The left atrium is mildly enlarged. Mild to moderate (1-2+) tricuspid valve insufficiency. Right ventricular systolic pressure estimated to be 39 mmHg. Moderate to severe restriction of the aortic valve. Moderate to severe aortic stenosis. Calculated aortic valve area (continuity equation) is 1.2 cm2. Compared to echo report dated 10/09/2017, LV function has remained the same. Aortic valve restriction suggests severe vs gradients. Ordering Physician: Jay Nieto Referring Physician: Kim Field M.D. Performed By: Autumn Chu RDCS
[2018-03-17] MEDS: Furosemide 100 MG/10 ML Vial 80 MG IV (05:51)
[2018-03-17] MEDS: Acetaminophen 325 MG Tablet 650 MG PO (05:52)
[2018-03-17] MEDS: Heparin Injection (Vial) 5,000 UNIT/ML VIAL 5000 UNIT SC ×3 (05:52→22:58)
[2018-03-17] MEDS: 0.9% NaCl Peripheral Flush Adult/Peds IV (05:53)
[2018-03-17 07:09] LABS: Absolute Lymphocyte Count 0.61 X10^3/ul (0.83-4.51); Absolute Neutrophil Count 18.9 X10^3/uL (2.0-7.7); Basophil# 0.01 X10^3/uL; Basophil% 0.1 % (0-1); Eosinophil# 0.05 X10^3/uL; Eosinophils% 0.3 % (0-5); Hematocrit 31.7 % (37-47); Hemoglobin 9.6 g/dl (12.0-15.0); Lymphocyte # 0.61 X10^3/ul (4.0); Lymphocyte % 3.1 % (19-41); Mean Corp Hgb Conc 30.3 g/gl (32-36); Mean Corpuscular Hgb 28.2 pg (27.0-32.0); Monocyte# 0.31 X10^3/uL; Monocyte% 1.6 % (0-10); Neutrophil # 18.91 X10^3/uL (2.7-7.7); Neutrophil % 94.7 % (47-70); Platelet Count 150 K/mm3 (150-450); RBC Distribution Width SD 51.2 fl (35.1-43.9); Red Blood Count 3.41 M/mm3 (4.2-5.4); White Blood Count 19.9 K/mm3 (4.4-11.0)
[2018-03-17 07:12] LABS: POSITIVE COUNT NO; POSITIVE DIFFERENTIAL NO; POSITIVE MORPHOLOGY NO
[2018-03-17 07:16] LABS: Bedside Glucose 216 mg/dL (70-110)
[2018-03-17 07:35] LABS: Allen Test POS; Base Excess 1 mmol/L (-2 to +2); Bicarbonate 24.5 mmol/L (22-26); Blood Gas Specimen Type ART; O2 Delivery Device Nasal Can; PO2 54 mmHG (75-100); SITE R Brachial; SO2 90 % (95-99); Time Given 730; Total Carbon Dioxide 25 mmol/L; pCO2 32.4 mmHg (35-45); pH 7.49 (7.35-7.45)
[2018-03-17 07:45] LABS: Albumin, Serum 2.2 g/dL (3.2-5.0)
[2018-03-17 07:47] LABS: Anion Gap 12 (5-15); BUN 103 mg/dL (7-18); BUN/Creat Ratio 40.1 RATIO (10-20); Calcium,Total 7.8 mg/dL (8.5-10.1); Chloride 105 mmol/L (98-107); Creatinine, Serum 2.57 mg/dL (0.55-1.02); EST Glomerular Filtration Rate 20 mL/min (>60); Est Glom Filt Rate - Afr Amer 24 mL/min (>60); Estimated Creatinine Clearance 21.43 ml/min; Glucose 159 mg/dL (74-106); Potassium 4.4 mmol/L (3.5-5.1); Sodium Level 140 mmol/L (136-145)
[2018-03-17] MEDS: Insulin Lispro 100 UNIT/ML INSULN.PEN 10 UNIT SQ ×3 (08:25→17:40)
[2018-03-17] MEDS: Insulin Lispro 100 UNIT/ML INSULN.PEN SQ ×4 (08:25→23:11)
[2018-03-17] MEDS: Pantoprazole Sodium 40 MG Tablet PO ×2 (08:27→22:58)
[2018-03-17] MEDS: Senna/Docusate Sodium 1 Tablet 2 TABLET PO ×2 (08:27→23:14)
[2018-03-17] MEDS: Aspirin 81 MG TAB.CHEW PO (08:28)
[2018-03-17] MEDS: Isosorbide Mononitrate 60 MG Tablet PO (08:28)
[2018-03-17] MEDS: Clopidogrel Bisulfate 75 MG Tablet PO (08:28)
[2018-03-17] MEDS: Metoprolol Tartrate 100 MG Tablet PO ×2 (08:28→23:20)
[2018-03-17] MEDS: Ferrous Gluconate 325 MG Tablet PO (08:28)
[2018-03-17] MEDS: Niacin SA 500 MG Tablet PO ×2 (08:28→22:58)
[2018-03-17] MEDS: amLODIPine 5 MG Tablet PO (08:28)
--- NOTE | 2018-03-17 08:41 | PCM.CONS.R ---
Consultation - Renal 03/17/18 PCP/ Referring MD: Requesting physician: [] Primary care physician: Kim Field - History of Present Illness History of Present Illness: The patient is a 67 year old F with diabetes, hypertension, systolic congestive heart failure, aortic stenosis was seen back in September 2017 for acute renal failure due to contrast nephropathy then in December when she was admitted for KIM due to ATN from sepsis, cellulitis. She was subsequently discharged to [facility] on lasix. She was seen on follow up in the office on 02/16/18. Creatinine was 1.5 on 02/10/18. She has a baseline creatinine of 1.12 with a GFR of 52 cc/min from underlying diabetic nephropathy in December 2017. She presents with fever, chills, cough and leg cellulitis. She had acute renal failure with BUN of 115 creatinine 2.8 on admit. Creatinine improved to 2.57 with IV hydration today. She was started on IV antibiotic therapy for her cellulitis. She had low-grade fever with leukocytosis. Infectious disease on consult. She states her roommate at [facility] has been sick with cough. - Allergies Allergies: Allergies Penicillins Allergy (Verified 03/17/18 01:20) Rash rosiglitazone maleate [From Avandia] Allergy (Verified 03/17/18 01:20) Swelling & diarrhea simvastatin [From Zocor] Allergy (Verified 03/17/18 01:20) Muscle weakness atorvastatin calcium [From Lipitor] Adverse Reaction (Verified 03/17/18 01:20) Muscle weakness esomeprazole magnesium [From Nexium] Adverse Reaction (Verified 03/17/18 01:20) Diarrhea lansoprazole [From Prevacid] Adverse Reaction (Verified 03/17/18 01:20) Diarrhea Sulfa (Sulfonamide Antibiotics) Adverse Reaction (Verified 03/17/18 01:20) Nausea/Vom/Diarrhea from PCP office records - Current Medications Current Medications: Current Medications Acetaminophen (Tylenol) 650 mg PO Q6H PRN PRN PRN Reason: Mild Pain (1-3)/Temp > 100.7 F Last Admin: 03/17/18 05:52 Dose: 650 mg Albuterol Sulfate (Ventolin Aerosols) 2.5 mg INHALATION Q2H PRN PRN PRN Reason: SHORTNESS OF BREATH Amlodipine Besylate (Norvasc) 5 mg PO DAILY DIANELYS Last Admin: 03/17/18 08:28 Dose: 5 mg Aspirin (Aspirin, Baby) 81 mg PO DAILY@0800 [facility] Last Admin: 03/17/18 08:28 Dose: 81 mg Calamine/Phenol (Calmoseptine Ointment) 1 applic TOPICAL TID [facility] PRN Reason: Protocol Last Admin: 03/17/18 06:12 Dose: Not Given Clopidogrel Bisulfate (Plavix) 75 mg PO DAILY [facility] Last Admin: 03/17/18 08:28 Dose: 75 mg Diphenhydramine HCl (Benadryl) 25 mg PO TID PRN PRN PRN Reason: ITCHING Ergocalciferol (Vitamin D) 50,000 unit PO SA [facility] Ferrous Gluconate (Ferrous Gluconate) 325 mg PO DAILY@0800 [facility] Last Admin: 03/17/18 08:28 Dose: 325 mg Fluticasone Propionate (Flonase Nasal [place]) 1 spray NASAL BID [facility] Heparin Sodium (Porcine) (Heparin Na) 5,000 unit SC Q8 [facility] Last Admin: 03/17/18 05:52 Dose: 5,000 unit Vancomycin IV Pharmacy to Dose (1,399.5 ea/ Sodium Chloride) 500 mls @ 250 mls/hr IV X1 PRN PRN Reason: Protocol Sodium Chloride () 250 mls @ 15 mls/hr IV .[id number] PRN PRN Reason: SALINE FLUSH Vancomycin HCl 750 mg/ Sodium (Chloride) 265 mls @ 250 mls/hr IV Q24H DIANELYS Cefepime HCl 1 gm/ Sodium (Chloride) 50 mls @ 100 mls/hr IV Q24 [facility] Insulin Glargine (Lantus (Bkc)) 30 units SC QHS [facility] Insulin Human Lispro (Humalog Kwikpen (Bkc)) 10 unit SQ BREAKFAST [facility] Last Admin: 03/17/18 08:25 Dose: 10 u Insulin Human Lispro (Humalog Kwikpen (Bkc)) 10 unit SQ DINNER [facility] Insulin Human Lispro (Humalog Kwikpen (Bkc)) 10 unit SQ LUNCH [facility] Insulin Human Lispro (Humalog Kwikpen (Bkc)) 0 unit SQ ACHS DIANELYS PRN Reason: Protocol Last Admin: 03/17/18 08:25 Dose: 4 u Isosorbide Mononitrate (Imdur) 60 mg PO DAILY [facility] Last Admin: 03/17/18 08:28 Dose: 60 mg Loratadine (Claritin) 10 mg PO DAILY PRN PRN Reason: ITCHING Magnesium Hydroxide (Milk Of Magnesia) 30 ml PO DAILY PRN PRN PRN Reason: Constipation Metoprolol Tartrate (Lopressor (Beta Richard)) 100 mg PO BID [facility] Last Admin: 03/17/18 08:28 Dose: 100 mg Montelukast Sodium (Singulair) 10 mg PO QHS [facility] Niacin (Niaspan) 500 mg PO BID [facility] Last Admin: 03/17/18 08:28 Dose: 500 mg Non-Formulary Medication (Rosuvastatin Calcium) 2.5 mg PO QHS [facility] Nutritional Formula (Jerod - [place] Flavor) 1 packet PO BID [facility] Last Admin: 03/17/18 08:29 Dose: 1 packet Nystatin (Mycostatin Powder) 1 applic TOPICAL TID [facility] PRN Reason: Protocol Last Admin: 03/17/18 06:12 Dose: Not Given Ondansetron HCl (Zofran) 4 mg IV Q8H PRN PRN PRN Reason: NAUSEA Oxycodone HCl (Oxyir) 5 - 10 mg PO Q4H PRN PRN PRN Reason: MOD-SEVERE PAIN (4-10/10) Pantoprazole Sodium (Protonix) 40 mg PO BID [facility] Last Admin: 03/17/18 08:27 Dose: 40 mg Senna/Docusate Sodium (Senokot-S, Melvi-Colace) 2 tablet PO BID [facility] Last Admin: 03/17/18 08:27 Dose: 2 tablet Sodium Chloride () 5 - 30 ml IV UD PRN PRN Reason: SALINE FLUSH Last Admin: 03/17/18 05:53 Dose: 20 ml Zolpidem Tartrate (Ambien (Generic)) 5 mg PO QHS PRN PRN PRN Reason: INSOMNIA - Past Medical History Past Medical History (Chronic Problems): Chronic Problems (Last Reviewed 03/17/18 @ 05:40 by Jay Nieto MD) Hyperlipidemia (Chronic) Hypertension (Chronic) H/O coronary artery bypass surgery (Chronic ~2007) CABG x 3 STORY-LAD, SVG-RCA, SVG-Cx 2007 Atherosclerosis of coronary artery of [place] heart without angina pectoris (Chronic) CABG x 3 STORY-LAD, SVG-RCA, SVG-Cx 2008 Nonrheumatic tricuspid valve regurgitation (Chronic) Secondary pulmonary arterial hypertension (Chronic) Non-rheumatic aortic stenosis (Chronic) Ulcer of right lower extremity with fat layer exposed (Chronic) anterior lower extremity ulcer Venous insufficiency of both lower extremities (Chronic) Other specified peripheral vascular diseases (Chronic) Ulcer of left lower extremity with fat layer exposed (Chronic) Delayed wound healing (Chronic) Maceration of skin (Chronic) Type 2 diabetes mellitus with diabetic peripheral angiopathy without gangrene (Chronic) Lymphedema in adult patient (Chronic) Noncompliance with treatment regimen (Chronic) Pulmonary nodules (Chronic) Obesity (BMI 30.0-34.9) (Chronic) 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) Thrombocytopenia (Chronic) - Past Surgical History Surgical History: coronary bypass surgery, - - Right femoral bypass surgery, cochlear impants - Social History Smoking Status: Former smoker Alcohol: None - Family History Sibling Family History: Family History (Last Reviewed 03/17/18 @ 05:41 by Jay Nieto MD) Other CAD (coronary artery disease) History Items: Heart Disease Maternal Family History: Family History (Last Reviewed 03/17/18 @ 05:41 by Jay Nieto MD) Other CAD (coronary artery disease) History Items: No pertinent history Paternal Family History: Family History (Last Reviewed 03/17/18 @ 05:41 by Jay Nieto MD) Other CAD (coronary artery disease) History Items: No pertinent history Review of Systems Constitutional: Reports: Anorexia, Chills, Fever Cardiovascular: Denies: Chest Pain Respiratory: Reports: Cough, Shortness of Breath Gastrointestinal: Denies: Abdominal Pain, Constipation, Diarrhea, Nausea, Vomiting Genitourinary: Reports: - - decreased urine output Neurological: Reports: - - debility Psychiatric: Reports: Anxiety Hematologic/ Lymphatic: Reports: Anemia Patient Problems: Active and Suspected Problems (Last Reviewed 03/17/18 @ 05:40 by Jay Nieto MD) Bilateral cellulitis of lower leg (Acute) Acute on chronic respiratory failure with hypoxemia (Acute) Flu-like symptoms (Acute) - Physical Exam General: Alert, Oriented x3, Cooperative, No apparent distress HEENT: PERRLA, EOMI Oral: Dry Mucosa Neck: Supple Lungs: Clear to auscultation Cardiovascular: Regular rate, Murmur Abdomen: Bowel Sounds Present, Soft, Non Tender, Non-Distended, Obese Extremities: No edema Skin: Ulcer/ Wound - BLE Musculoskeletal: No Muscle Wasting Neurological: Cranial nerves II-XII grossly intact Psych/Mental Status: Normal Affect, Appropriate, Alert and oriented to time, place, person, mood and affect Vital Signs Temp Pulse Resp BP Pulse Ox 98.7 F 84 18 118/57 L 97 03/17/18 08:34 03/17/18 08:34 03/17/18 08:34 03/17/18 08:34 03/17/18 08:34 Oxygen Flow Rate (L/min) 2 Oxygen Delivery Method Nasal Cannula Weight: 93.1 kg Body Mass Index (BMI) 31.1 Intake and Output for Last 24 Hours 03/15/18 03/16/18 03/17/18 23:59 23:59 23:59 Intake Total 1540 / 1540 Output Total 0 / 0 Balance 1540 / 1540 Laboratory Tests Past 24 Hrs 03/17/18 03/17/18 03/17/18 05:00 06:00 06:00 WBC 19.9 H RBC 3.41 L Hgb 9.6 L Hct 31.7 L MCV 93.0 MCH 28.2 MCHC 30.3 L RDW 15.0 H RDW Differential 51.2 H Plt Count 150 MPV 10.0 Immature Gran % (Auto) 0.200 Neut % (Auto) 94.7 H Lymph % (Auto) 3.1 L Candler % (Auto) 1.6 Eos % (Auto) 0.3 Baso % (Auto) 0.1 Absolute Neuts (auto) 18.9 H Absolute Lymphs (auto) 0.61 L Total Counted Not Reportable Specimen Type Sample Site pH Bicarbonate Actual POC Total CO2 Base Excess O2 Saturation ABG pCO2 ABG pO2 Ray Test O2 Delivery Device Liter Flow Blood Gas Notified Whom Blood Gas Notified Time Sodium 140 Potassium 4.4 Chloride 105 Carbon Dioxide 23.0 Anion Gap 12 BUN 103 H* Creatinine 2.57 H Estim Creat Clear Calc 21.43 Est GFR (MDRD) Af Amer 24 L Est GFR (MDRD) Non-Af 20 L BUN/Creatinine Ratio 40.1 H Glucose 159 H Calcium 7.8 L Albumin MRSA (PCR) Pending 03/17/18 03/17/18 06:06 07:31 WBC RBC Hgb Hct MCV MCH MCHC RDW RDW Differential Plt Count MPV Immature Gran % (Auto) Neut % (Auto) Lymph % (Auto) Candler % (Auto) Eos % (Auto) Baso % (Auto) Absolute Neuts (auto) Absolute Lymphs (auto) Total Counted Specimen Type ART Sample Site R Brachial pH 7.49 H Bicarbonate Actual 24.5 POC Total CO2 25 Base Excess 1 O2 Saturation 90 L ABG pCO2 32.4 L ABG pO2 54 L Ray Test POS O2 Delivery Device Nasal Can Liter Flow 2.0 Blood Gas Notified Whom HOSP Blood Gas Notified Time 730 Sodium Potassium Chloride Carbon Dioxide Anion Gap BUN Creatinine Estim Creat Clear Calc Est GFR (MDRD) Af Amer Est GFR (MDRD) Non-Af BUN/Creatinine Ratio Glucose Calcium Albumin 2.2 L MRSA (PCR) POC Glucose 03/17/18 07:12 POC Glucose 216 H Clinical Impression(s) from Imaging Studies Chest X-Ray 03/17/18 01:35 IMPRESSION: Bibasilar atelectasis versus infiltrate. Electronically Signed: Rashaad Doty MD at 2:18 EDT Tel , Service support , Assessment/Plan All Active Problems (Last Reviewed 03/17/18 @ 05:40 by Jay Nieto MD) Bilateral cellulitis of lower leg (Acute) Acute on chronic respiratory failure with hypoxemia (Acute) Flu-like symptoms (Acute) BRBPR (bright red blood per rectum) (Resolved) C. difficile colitis (Resolved) Cholelithiasis (Resolved) Hyperkalemia (Resolved) 1.KIM on CKD stage III underlying diabetic nephropathy. Acute component likely due to prerenal event from diuretic therapy, dehydration. Agree with IV fluids. Creatinine 2.8 improved to 2.57. Continue to hold diuretics. Baseline creatinine 1.12-2.0. 2. Fever with leukocytosis bilateral leg cellulitis, upper respiratory infection. Monitor vancomycin level. ID following 3. DM type II primary service managing 4. Hypertension stable blood pressures. 5. Lower extremity cellulitis on IV antibiotic therapy
[2018-03-17 08:49] LABS: M R Staph aureus DNA By PCR POSITIVE (Negative); Probe Check PASS
--- NOTE | 2018-03-17 09:08 | CASEMGMT ---
Patient is from [facility]. faxed updates. Milady KELLY [employer]
[2018-03-17] MEDS: Fluticasone 0.05% 1 SPRAY NASAL.SRY NASAL (09:37)
[2018-03-17 10:45] LABS: Bedside Glucose 211 mg/dL (70-110)
[2018-03-17] MEDS: Nystatin Powder 15gm Bottle 1 APPLIC TOPICAL ×2 (11:37→23:13)
[2018-03-17] MEDS: Menthol/Lanolin/Calamine/Znox 113 GM Tube 1 APPLIC TOPICAL ×2 (11:37→23:15)
--- NOTE | 2018-03-17 12:01 | PCM.HP.ID ---
Problem List (1) Flu-like symptoms Status: Acute Reason for Consult: fever Consulted by: Dr. Hardin History of Present Illness: The patient is a 67 year old F with chronic venous stasis who presented from [facility] with 2-3 days of fever, chills, aches, n/v, and clear sputum. Legs have been stable in terms of pain/redness/swelling, but did recently stub toe on R foot. Roommate at [facility] recently with URI. Sent to ED, started on vanc/cefepime. Feeling better today. Full ROS performed and neg except as noted above. - Medical History Past Medical History (Chronic Problems): Chronic Problems (Last Reviewed 03/17/18 @ 05:40 by Jay Nieto MD) Hyperlipidemia (Chronic) Hypertension (Chronic) H/O coronary artery bypass surgery (Chronic ~2007) CABG x 3 STORY-LAD, SVG-RCA, SVG-Cx 2007 Atherosclerosis of coronary artery of [place] heart without angina pectoris (Chronic) CABG x 3 STORY-LAD, SVG-RCA, SVG-Cx 2007 Nonrheumatic tricuspid valve regurgitation (Chronic) Secondary pulmonary arterial hypertension (Chronic) Non-rheumatic aortic stenosis (Chronic) Ulcer of right lower extremity with fat layer exposed (Chronic) anterior lower extremity ulcer Venous insufficiency of both lower extremities (Chronic) Other specified peripheral vascular diseases (Chronic) Ulcer of left lower extremity with fat layer exposed (Chronic) Delayed wound healing (Chronic) Maceration of skin (Chronic) Type 2 diabetes mellitus with diabetic peripheral angiopathy without gangrene (Chronic) Lymphedema in adult patient (Chronic) Noncompliance with treatment regimen (Chronic) Pulmonary nodules (Chronic) Obesity (BMI 30.0-34.9) (Chronic) 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) Thrombocytopenia (Chronic) Allergies/Adverse Reactions: Allergies Penicillins Allergy (Verified 03/17/18 01:20) Rash rosiglitazone maleate [From Avandia] Allergy (Verified 03/17/18 01:20) Swelling & diarrhea simvastatin [From Zocor] Allergy (Verified 03/17/18 01:20) Muscle weakness atorvastatin calcium [From Lipitor] Adverse Reaction (Verified 03/17/18 01:20) Muscle weakness esomeprazole magnesium [From Nexium] Adverse Reaction (Verified 03/17/18 01:20) Diarrhea lansoprazole [From Prevacid] Adverse Reaction (Verified 03/17/18 01:20) Diarrhea Sulfa (Sulfonamide Antibiotics) Adverse Reaction (Verified 03/17/18 01:20) Nausea/Vom/Diarrhea from PCP office records Home Medications: Ambulatory Orders Medication Instructions Recorded Aspirin [Aspirin, Baby] 81 mg PO DAILY@0800 10/20/14 Ferrous Gluconate 325 mg PO DAILY@0800 10/21/14 Metoprolol Tartrate [Lopressor 100 mg PO BID 10/21/14 (beta apryl)] Pantoprazole Sodium [Protonix] 40 mg PO BID 10/21/14 Rosuvastatin Calcium [Crestor] 2.5 mg PO QHS 10/21/14 Nitroglycerin [Nitrostat] 0.4 mg SUBLINGUAL Q5M PRN 11/24/14 Gabapentin [Neurontin] 100 mg PO BID 07/02/15 Ergocalciferol [Vitamin D] 50,000 units PO SA 02/16/16 Niacinamide [Niacin] 500 mg PO BID 02/16/16 Montelukast Sodium [Singulair] 10 mg PO QHS 05/06/16 Ondansetron [Zofran Odt] 8 mg PO Q6H PRN PRN 03/31/17 Amlodipine [Norvasc] 5 mg PO DAILY 10/12/17 Clopidogrel Bisulfate [Plavix] 75 mg PO DAILY #30 tab 10/16/17 Isosorbide Mononitrate [Imdur] 60 mg PO DAILY #30 tab 10/16/17 Insulin Lispro [Humalog KwikPen] 15 unit SC TIDAC insuln.pen 12/30/17 Insulin Lispro [Humalog KwikPen] See Protocol SC ACHS insuln.pen 12/30/17 Alpha Lipoic Acid 600 mg PO QHS 01/24/18 Furosemide [Lasix] 40 mg PO DAILY 01/24/18 Insulin Glargine [Lantus SoloStar 45 units SC QHS 01/24/18 Pen] Acetaminophen [Tylenol Tablet] 650 mg PO Q6H PRN PRN tab 01/28/18 Albuterol Aerosols [Ventolin 2.5 mg INHALATION Q2H PRN PRN 01/28/18 Aerosols] vial.neb. Argin/Glut/Cahmb/Collag/Mv-Min 1 each PO BID 03/17/18 [Jerod Packet] Cetirizine HCl [Zyrtec] 10 mg PO DAILY PRN 03/17/18 DiphenhydrAMINE [Benadryl] 25 mg PO TID PRN PRN 03/17/18 Hydrocortisone 2.5% Crm [Hytone] 1 applic TOPICAL DAILY 03/17/18 - Social History SMOKING STATUS:: Former smoker Vital Signs Temp Pulse Resp BP Pulse Ox 98.7 F 142 H 18 118/57 L 97 03/17/18 09:00 03/17/18 11:42 03/17/18 09:00 03/17/18 09:00 03/17/18 09:22 Oxygen Flow Rate (L/min) 2 Oxygen Delivery Method Nasal Cannula Weight: 93.1 kg Body Mass Index (BMI) 31.1 Laboratory Tests Past 24 Hrs 03/17/18 03/17/18 03/17/18 05:00 06:00 06:00 WBC 19.9 H RBC 3.41 L Hgb 9.6 L Hct 31.7 L MCV 93.0 MCH 28.2 MCHC 30.3 L RDW 15.0 H RDW Differential 51.2 H Plt Count 150 MPV 10.0 Immature Gran % (Auto) 0.200 Neut % (Auto) 94.7 H Lymph % (Auto) 3.1 L Kleberg % (Auto) 1.6 Eos % (Auto) 0.3 Baso % (Auto) 0.1 Absolute Neuts (auto) 18.9 H Absolute Lymphs (auto) 0.61 L Total Counted Not Reportable Specimen Type Sample Site pH Bicarbonate Actual POC Total CO2 Base Excess O2 Saturation ABG pCO2 ABG pO2 Ray Test O2 Delivery Device Liter Flow Blood Gas Notified Whom Blood Gas Notified Time Sodium 140 Potassium 4.4 Chloride 105 Carbon Dioxide 23.0 Anion Gap 12 BUN 103 H* Creatinine 2.57 H Estim Creat Clear Calc 21.43 Est GFR (MDRD) Af Amer 24 L Est GFR (MDRD) Non-Af 20 L BUN/Creatinine Ratio 40.1 H Glucose 159 H Calcium 7.8 L Albumin MRSA (PCR) POSITIVE H 03/17/18 03/17/18 06:06 07:31 WBC RBC Hgb Hct MCV MCH MCHC RDW RDW Differential Plt Count MPV Immature Gran % (Auto) Neut % (Auto) Lymph % (Auto) Kleberg % (Auto) Eos % (Auto) Baso % (Auto) Absolute Neuts (auto) Absolute Lymphs (auto) Total Counted Specimen Type ART Sample Site R Brachial pH 7.49 H Bicarbonate Actual 24.5 POC Total CO2 25 Base Excess 1 O2 Saturation 90 L ABG pCO2 32.4 L ABG pO2 54 L Ray Test POS O2 Delivery Device Nasal Can Liter Flow 2.0 Blood Gas Notified Whom HOSP Blood Gas Notified Time 730 Sodium Potassium Chloride Carbon Dioxide Anion Gap BUN Creatinine Estim Creat Clear Calc Est GFR (MDRD) Af Amer Est GFR (MDRD) Non-Af BUN/Creatinine Ratio Glucose Calcium Albumin 2.2 L MRSA (PCR) - Other Studies Radiology: [] reviewed Other Studies: [] Route of nutrition/ use of supplements: [] Nutritional Intake: [] IV Site: [] Blanc Catheter: [] - Physical Exam General: Alert, Oriented x3, Cooperative, No apparent distress HEENT: Atraumatic, PERRLA, EOMI Neck: Supple, No Nodes Lungs: Clear to auscultation, Normal air movement Cardiovascular: Regular rate, Regular Rhythm Abdomen: Bowel Sounds Present, Soft, Non Tender, Non-Distended Extremities: Edema Skin: Ulcer/ Wound - BLE redness and maceration IV Site: Peripheral, without redness Musculoskeletal: No Tenderness to Palpation of Joints or Extremities Neurological: Cranial nerves II-XII grossly intact - Assessment/Plan Antibiotics: [] Assessment/Plan: [] Active and Suspected Problems (Last Reviewed 03/17/18 @ 05:40 by Jay Nieto MD) Bilateral cellulitis of lower leg (Acute) Acute on chronic respiratory failure with hypoxemia (Acute) Flu-like symptoms (Acute) Sepsis (fever, leukocytosis) - resp pcr pending. Flu-like illness. Feeling better. On vanc/cefepime while cxs pending. She reports legs are at baseline. Covering for possible cellulitis; past cx with mrsa, strep, burkholderia, and proteus. Will follow, thank you.
--- NOTE | 2018-03-17 12:06 | CON.PCM_ITS ---
Problem List (1) Flu-like symptoms Status: Acute Reason for Consult: fever Consulted by: Dr. Hardin History of Present Illness: The patient is a 67 year old F with chronic venous stasis who presented from [facility] with 2-3 days of fever, chills, aches, n/v, and clear sputum. Legs have been stable in terms of pain/redness/swelling, but did recently stub toe on R foot. Roommate at [facility] recently with URI. Sent to ED, started on vanc/ cefepime. Feeling better today. Full ROS performed and neg except as noted above. - Medical History Past Medical History (Chronic Problems): Chronic Problems (Last Reviewed 03/17/18 @ 05:40 by Jay Nieto MD) Hyperlipidemia (Chronic) Hypertension (Chronic) H/O coronary artery bypass surgery (Chronic ~2007) CABG x 3 STORY-LAD, SVG-RCA, SVG-Cx 2007 Atherosclerosis of coronary artery of [place] heart without angina pectoris ( Chronic) CABG x 3 STORY-LAD, SVG-RCA, SVG-Cx 2007 Nonrheumatic tricuspid valve regurgitation (Chronic) Secondary pulmonary arterial hypertension (Chronic) Non-rheumatic aortic stenosis (Chronic) Ulcer of right lower extremity with fat layer exposed (Chronic) anterior lower extremity ulcer Venous insufficiency of both lower extremities (Chronic) Other specified peripheral vascular diseases (Chronic) Ulcer of left lower extremity with fat layer exposed (Chronic) Delayed wound healing (Chronic) Maceration of skin (Chronic) Type 2 diabetes mellitus with diabetic peripheral angiopathy without gangrene ( Chronic) Lymphedema in adult patient (Chronic) Noncompliance with treatment regimen (Chronic) Pulmonary nodules (Chronic) Obesity (BMI 30.0-34.9) (Chronic) 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) Thrombocytopenia (Chronic) Allergies/Adverse Reactions: Allergies Penicillins Allergy (Verified 03/17/18 01:20) Rash rosiglitazone maleate [From Avandia] Allergy (Verified 03/17/18 01:20) Swelling & diarrhea simvastatin [From Zocor] Allergy (Verified 03/17/18 01:20) Muscle weakness atorvastatin calcium [From Lipitor] Adverse Reaction (Verified 03/17/18 01:20) Muscle weakness esomeprazole magnesium [From Nexium] Adverse Reaction (Verified 03/17/18 01:20) Diarrhea lansoprazole [From Prevacid] Adverse Reaction (Verified 03/17/18 01:20) Diarrhea Sulfa (Sulfonamide Antibiotics) Adverse Reaction (Verified 03/17/18 01:20) Nausea/Vom/Diarrhea from PCP office records Home Medications: Ambulatory Orders Medication Instructions Recorded Aspirin [Aspirin, Baby] 81 mg PO DAILY@0800 10/20/14 Ferrous Gluconate 325 mg PO DAILY@0800 10/21/14 Metoprolol Tartrate [Lopressor 100 mg PO BID 10/21/14 (beta apryl)] Pantoprazole Sodium [Protonix] 40 mg PO BID 10/21/14 Rosuvastatin Calcium [Crestor] 2.5 mg PO QHS 10/21/14 Nitroglycerin [Nitrostat] 0.4 mg SUBLINGUAL Q5M PRN 11/24/14 Gabapentin [Neurontin] 100 mg PO BID 07/02/15 Ergocalciferol [Vitamin D] 50,000 units PO SA 02/16/16 Niacinamide [Niacin] 500 mg PO BID 02/16/16 Montelukast Sodium [Singulair] 10 mg PO QHS 05/06/16 Ondansetron [Zofran Odt] 8 mg PO Q6H PRN PRN 03/31/17 Amlodipine [Norvasc] 5 mg PO DAILY 10/12/17 Clopidogrel Bisulfate [Plavix] 75 mg PO DAILY #30 tab 10/16/17 Isosorbide Mononitrate [Imdur] 60 mg PO DAILY #30 tab 10/16/17 Insulin Lispro [Humalog KwikPen] 15 unit SC TIDAC insuln.pen 12/30/17 Insulin Lispro [Humalog KwikPen] See Protocol SC ACHS insuln.pen 12/30/17 Alpha Lipoic Acid 600 mg PO QHS 01/24/18 Furosemide [Lasix] 40 mg PO DAILY 01/24/18 Insulin Glargine [Lantus SoloStar 45 units SC QHS 01/24/18 Pen] Acetaminophen [Tylenol Tablet] 650 mg PO Q6H PRN PRN tab 01/28/18 Albuterol Aerosols [Ventolin 2.5 mg INHALATION Q2H PRN PRN 01/28/18 Aerosols] vial.neb. Argin/Glut/Cahmb/Collag/Mv-Min 1 each PO BID 03/17/18 [Jerod Packet] Cetirizine HCl [Zyrtec] 10 mg PO DAILY PRN 03/17/18 DiphenhydrAMINE [Benadryl] 25 mg PO TID PRN PRN 03/17/18 Hydrocortisone 2.5% Crm [Hytone] 1 applic TOPICAL DAILY 03/17/18 - Social History SMOKING STATUS:: Former smoker Vital Signs Temp Pulse Resp BP Pulse Ox 98.7 F 142 H 18 118/57 L 97 03/17/18 09:00 03/17/18 11:42 03/17/18 09:00 03/17/18 09:00 03/17/18 09:22 Oxygen Flow Rate (L/min) 2 Oxygen Delivery Method Nasal Cannula Weight: 93.1 kg Body Mass Index (BMI) 31.1 Laboratory Tests Past 24 Hrs 03/17/18 03/17/18 03/17/18 05:00 06:00 06:00 WBC 19.9 H RBC 3.41 L Hgb 9.6 L Hct 31.7 L MCV 93.0 MCH 28.2 MCHC 30.3 L RDW 15.0 H RDW Differential 51.2 H Plt Count 150 MPV 10.0 Immature Gran % (Auto) 0.200 Neut % (Auto) 94.7 H Lymph % (Auto) 3.1 L Granite % (Auto) 1.6 Eos % (Auto) 0.3 Baso % (Auto) 0.1 Absolute Neuts (auto) 18.9 H Absolute Lymphs (auto) 0.61 L Total Counted Not Reportable Specimen Type Sample Site pH Bicarbonate Actual POC Total CO2 Base Excess O2 Saturation ABG pCO2 ABG pO2 Ray Test O2 Delivery Device Liter Flow Blood Gas Notified Whom Blood Gas Notified Time Sodium 140 Potassium 4.4 Chloride 105 Carbon Dioxide 23.0 Anion Gap 12 BUN 103 H* Creatinine 2.57 H Estim Creat Clear Calc 21.43 Est GFR (MDRD) Af Amer 24 L Est GFR (MDRD) Non-Af 20 L BUN/Creatinine Ratio 40.1 H Glucose 159 H Calcium 7.8 L Albumin MRSA (PCR) POSITIVE H 03/17/18 03/17/18 06:06 07:31 WBC RBC Hgb Hct MCV MCH MCHC RDW RDW Differential Plt Count MPV Immature Gran % (Auto) Neut % (Auto) Lymph % (Auto) Granite % (Auto) Eos % (Auto) Baso % (Auto) Absolute Neuts (auto) Absolute Lymphs (auto) Total Counted Specimen Type ART Sample Site R Brachial pH 7.49 H Bicarbonate Actual 24.5 POC Total CO2 25 Base Excess 1 O2 Saturation 90 L ABG pCO2 32.4 L ABG pO2 54 L Ray Test POS O2 Delivery Device Nasal Can Liter Flow 2.0 Blood Gas Notified Whom HOSP Blood Gas Notified Time 730 Sodium Potassium Chloride Carbon Dioxide Anion Gap BUN Creatinine Estim Creat Clear Calc Est GFR (MDRD) Af Amer Est GFR (MDRD) Non-Af BUN/Creatinine Ratio Glucose Calcium Albumin 2.2 L MRSA (PCR) - Other Studies Radiology: [] reviewed Other Studies: [] Route of nutrition/ use of supplements: [] Nutritional Intake: [] IV Site: [] Blanc Catheter: [] - Physical Exam General: Alert, Oriented x3, Cooperative, No apparent distress HEENT: Atraumatic, PERRLA, EOMI Neck: Supple, No Nodes Lungs: Clear to auscultation, Normal air movement Cardiovascular: Regular rate, Regular Rhythm Abdomen: Bowel Sounds Present, Soft, Non Tender, Non-Distended Extremities: Edema Skin: Ulcer/ Wound - BLE redness and maceration IV Site: Peripheral, without redness Musculoskeletal: No Tenderness to Palpation of Joints or Extremities Neurological: Cranial nerves II-XII grossly intact - Assessment/Plan Antibiotics: [] Assessment/Plan: [] Active and Suspected Problems (Last Reviewed 03/17/18 @ 05:40 by Jay Nieto MD) Bilateral cellulitis of lower leg (Acute) Acute on chronic respiratory failure with hypoxemia (Acute) Flu-like symptoms (Acute) Sepsis (fever, leukocytosis) - resp pcr pending. Flu-like illness. Feeling better. On vanc/cefepime while cxs pending. She reports legs are at baseline. Covering for possible cellulitis; past cx with mrsa, strep, burkholderia, and proteus. Will follow, thank you.
--- NOTE | 2018-03-17 12:53 | NURSING ---
wound photo: right lower leg
--- NOTE | 2018-03-17 12:54 | NURSING ---
wound photo: left lower leg
--- NOTE | 2018-03-17 12:54 | NURSING ---
wound photo: left ischium
--- NOTE | 2018-03-17 12:54 | NURSING ---
wound photo: right buttock
--- NOTE | 2018-03-17 13:47 | CASEMGMT ---
SW faxed progress notes and PT/OT evaluations to [facility]. Milady KELLY MSW
[2018-03-17 16:31] LABS: Bedside Glucose 280 mg/dL (70-110)
--- NOTE | 2018-03-17 17:36 | PCM.PN.HOSP ---
Patient Problems: Active and Suspected Problems (Last Reviewed 03/17/18 @ 05:40 by Jay Nieto MD) Bilateral cellulitis of lower leg (Acute) Acute on chronic respiratory failure with hypoxemia (Acute) Flu-like symptoms (Acute) Subjective: Patient was seen and examined. She feels improved. Tmax 100.8F. Denies any fever or chills or SOB. Wound has been dressed today by wound team - pictures are under notes. Objective: Physical Exam: General: Alert, Oriented x3, Cooperative, not pale, not jaundiced HEENT: Atraumatic, PERRLA, EOMI, Normocephalic Neck: Supple, No JVD, Negative Carotid Bruits Lungs: Clear to auscultation, Normal air movement Cardiovascular: Regular rate, No murmurs Abdomen: Bowel Sounds Present, Soft, Non Tender Extremities: CARLOS A-wraps to bilateral legs Skin: No rashes, No breakdown, - - Bilateral leg redness with multiple areas of excoriation. Stage II pressure ulcer on coccyx and area of redness on the buttocks. Musculoskeletal: No Muscle Wasting Lymphatic: No Cervical, Supraclavicular, or Inguinal Adenopathy Neurological: Cranial nerves II-XII grossly intact Psych/Mental Status: Normal Affect, Appropriate Vitals/I&O's: Vital Signs Temp Pulse Resp BP Pulse Ox 98.4 F 82 16 133/59 H 95 03/17/18 14:30 03/17/18 15:40 03/17/18 14:30 03/17/18 14:30 03/17/18 14:30 Oxygen Flow Rate (L/min) 2 Oxygen Delivery Method Nasal Cannula Weight: 93.1 kg Body Mass Index (BMI) 31.1 Intake and Output for Last 24 Hours 03/15/18 03/16/18 03/17/18 23:59 23:59 23:59 Intake Total 2019 Output Total 0 / 0 Balance 2019 Microbiology Past 72 Hours 03/17/18 06:57 Mucosa - Nasopharyngeal Respiratory Panel (PCR) - Final Laboratory Results 03/17/18 05:00: MRSA (PCR) POSITIVE H 03/17/18 06:00: WBC 19.9 H, RBC 3.41 L, Hgb 9.6 L, Hct 31.7 L, MCV 93.0, MCH 28.2, MCHC 30.3 L, RDW 15.0 H, RDW Differential 51.2 H, Plt Count 150, MPV 10.0, Immature Gran % (Auto) 0.200, Neut % (Auto) 94.7 H, Lymph % (Auto) 3.1 L, [place] % (Auto) 1.6, Eos % (Auto) 0.3, Baso % (Auto) 0.1, Absolute Neuts (auto) 18.9 H, Absolute Lymphs (auto) 0.61 L, Total Counted Not Reportable 03/17/18 06:00: Sodium 140, Potassium 4.4, Chloride 105, Carbon Dioxide 23.0, Anion Gap 12, BUN 103 H*, Creatinine 2.57 H, Estim Creat Clear Calc 21.43, Est GFR (MDRD) Af Amer 24 L, Est GFR (MDRD) Non-Af 20 L, BUN/Creatinine Ratio 40.1 H, Glucose 159 H, Calcium 7.8 L 03/17/18 06:06: Albumin 2.2 L 03/17/18 07:12: POC Glucose 216 H 03/17/18 07:31: Specimen Type ART, Sample Site R Brachial, pH 7.49 H, Bicarbonate Actual 24.5, POC Total CO2 25, Base Excess 1, O2 Saturation 90 L, ABG pCO2 32.4 L, ABG pO2 54 L, Ray Test POS, O2 Delivery Device Nasal Can, Liter Flow 2.0, Blood Gas Notified Whom [facility] , Blood Gas Notified Time 730 03/17/18 10:35: POC Glucose 211 H 03/17/18 16:26: POC Glucose 280 H Current Medications Acetaminophen (Tylenol) 650 mg PO Q6H PRN PRN PRN Reason: Mild Pain (1-3)/Temp > 100.7 F Last Admin: 03/17/18 05:52 Dose: 650 mg Albuterol Sulfate (Ventolin Aerosols) 2.5 mg INHALATION Q2H PRN PRN PRN Reason: SHORTNESS OF BREATH Amlodipine Besylate (Norvasc) 5 mg PO DAILY [facility] Last Admin: 03/17/18 08:28 Dose: 5 mg Aspirin (Aspirin, Baby) 81 mg PO DAILY@0800 [facility] Last Admin: 03/17/18 08:28 Dose: 81 mg Calamine/Phenol (Calmoseptine Ointment) 1 applic TOPICAL TID [facility] PRN Reason: Protocol Last Admin: 03/17/18 11:37 Dose: 1 applicatio Clopidogrel Bisulfate (Plavix) 75 mg PO DAILY [facility] Last Admin: 03/17/18 08:28 Dose: 75 mg Diphenhydramine HCl (Benadryl) 25 mg PO TID PRN PRN PRN Reason: ITCHING Emollient Ointment (Eucerin Intensive Repair) 1 applic TOPICAL DAILY [facility] PRN Reason: Protocol Ergocalciferol (Vitamin D) 50,000 unit PO SA [facility] Ferrous Gluconate (Ferrous Gluconate) 325 mg PO DAILY@0800 [facility] Last Admin: 03/17/18 08:28 Dose: 325 mg Fluticasone Propionate (Flonase Nasal [place]) 1 spray NASAL BID [facility] Last Admin: 03/17/18 09:37 Dose: 1 spray Heparin Sodium (Porcine) (Heparin Na) 5,000 unit SC Q8 [facility] Last Admin: 03/17/18 13:22 Dose: 5,000 unit Vancomycin IV Pharmacy to Dose (1,399.5 ea/ Sodium Chloride) 500 mls @ 250 mls/hr IV X1 PRN PRN Reason: Protocol Sodium Chloride () 250 mls @ 15 mls/hr IV .[id number] PRN PRN Reason: SALINE FLUSH Vancomycin HCl 750 mg/ Sodium (Chloride) 265 mls @ 250 mls/hr IV Q24H DIANELYS Cefepime HCl 1 gm/ Sodium (Chloride) 50 mls @ 100 mls/hr IV Q24 [facility] Last Admin: 03/17/18 10:36 Dose: 100 mls/hr Insulin Glargine (Lantus (Bkc)) 30 units SC QHS [facility] Insulin Human Lispro (Humalog Kwikpen (Bkc)) 10 unit SQ BREAKFAST [facility] Last Admin: 03/17/18 08:25 Dose: 10 u Insulin Human Lispro (Humalog Kwikpen (Bkc)) 10 unit SQ DINNER [facility] Insulin Human Lispro (Humalog Kwikpen (Bkc)) 10 unit SQ LUNCH [facility] Last Admin: 03/17/18 11:35 Dose: 10 u Insulin Human Lispro (Humalog Kwikpen (Bkc)) 0 unit SQ ACHS [facility] PRN Reason: Protocol Last Admin: 03/17/18 11:34 Dose: 4 u Isosorbide Mononitrate (Imdur) 60 mg PO DAILY [facility] Last Admin: 03/17/18 08:28 Dose: 60 mg Loratadine (Claritin) 10 mg PO DAILY PRN PRN Reason: ITCHING Magnesium Hydroxide (Milk Of Magnesia) 30 ml PO DAILY PRN PRN PRN Reason: Constipation Metoprolol Tartrate (Lopressor (Beta Richard)) 100 mg PO BID [facility] Last Admin: 03/17/18 08:28 Dose: 100 mg Montelukast Sodium (Singulair) 10 mg PO QHS [facility] Niacin (Niaspan) 500 mg PO BID [facility] Last Admin: 03/17/18 08:28 Dose: 500 mg Nutritional Formula (Jerod - Hardy Flavor) 1 packet PO BID [facility] Last Admin: 03/17/18 08:29 Dose: 1 packet Nystatin (Mycostatin Powder) 1 applic TOPICAL TID [facility] PRN Reason: Protocol Last Admin: 03/17/18 11:37 Dose: 1 applicatio Ondansetron HCl (Zofran) 4 mg IV Q8H PRN PRN PRN Reason: NAUSEA Oxycodone HCl (Oxyir) 5 - 10 mg PO Q4H PRN PRN PRN Reason: MOD-SEVERE PAIN (4-10/10) Pantoprazole Sodium (Protonix) 40 mg PO BID [facility] Last Admin: 03/17/18 08:27 Dose: 40 mg Rosuvastatin Calcium (Crestor) 2.5 mg PO HS [facility] Senna/Docusate Sodium (Senokot-S, Melvi-Colace) 2 tablet PO BID [facility] Last Admin: 03/17/18 08:27 Dose: 2 tablet Sodium Chloride () 5 - 30 ml IV UD PRN PRN Reason: SALINE FLUSH Last Admin: 03/17/18 05:53 Dose: 20 ml Zolpidem Tartrate (Ambien (Generic)) 5 mg PO QHS PRN PRN PRN Reason: INSOMNIA Medical Necessity - Tobacco Use Smoking Status: Former smoker Assessment/Plan All Active Problems (Last Reviewed 03/17/18 @ 05:40 by Jay Nieto MD) Bilateral cellulitis of lower leg (Acute) Acute on chronic respiratory failure with hypoxemia (Acute) Flu-like symptoms (Acute) BRBPR (bright red blood per rectum) (Resolved) C. difficile colitis (Resolved) Cholelithiasis (Resolved) Hyperkalemia (Resolved) 67-year-old female with multiple comorbidities including CAD status post CABG, type II DM, hypertension, CKD stage III, chronic bilateral venous stasis ulcers, with history of recurrent admissions for cellulitis who comes seen with flu-like illness, fever, worsening leukocytosis, worsening cellulitis of her extremities. 1. Acute flulike illness, unclear etiology, respiratory panel resolving, will continue supportive management 2. Sepsis secondary to worsening bilateral lower extremity cellulitis, improving, MRSA PCR is positive, preliminary blood cultures growing gram-positive cocci in chains , WBC count is better, IV cefepime and vancomycin, ID consulted, following, continue to monitor WBC 3. Bacteremia with preliminary blood which is growing gram-positive cocci in chains, will have to wait for further speciation and see if the other culture will grow 4. KIM on CKD secondary to dehydration, sepsis, creatinine improving with hydration, nephrology consulted, continue to trend labs 5. Acute on chronic hypoxic respiratory failure, improved with as needed breathing treatment 6. Hyperglycemia in a type II DM located with diabetic nephropathy, continue on the current insulin regimen with insulin sliding scale 7. Bilateral gluteal region pressure injury, wound nurse consulted 8. Hypertension, controlled, continue on current medications 9. VT prophylaxis with heparin subcu Code Visit Inpatient E&M: 59621 Subs Hosp L2
--- NOTE | 2018-03-17 17:50 | PN_ITS ---
Patient Problems: Active and Suspected Problems (Last Reviewed 03/17/18 @ 05:40 by Jay Nieto MD) Bilateral cellulitis of lower leg (Acute) Acute on chronic respiratory failure with hypoxemia (Acute) Flu-like symptoms (Acute) Subjective: Patient was seen and examined. She feels improved. Tmax 100.8F. Denies any fever or chills or SOB. Wound has been dressed today by wound team - pictures are under notes. Objective: Physical Exam: General: Alert, Oriented x3, Cooperative, not pale, not jaundiced HEENT: Atraumatic, PERRLA, EOMI, Normocephalic Neck: Supple, No JVD, Negative Carotid Bruits Lungs: Clear to auscultation, Normal air movement Cardiovascular: Regular rate, No murmurs Abdomen: Bowel Sounds Present, Soft, Non Tender Extremities: CARLOS A-wraps to bilateral legs Skin: No rashes, No breakdown, - - Bilateral leg redness with multiple areas of excoriation. Stage II pressure ulcer on coccyx and area of redness on the buttocks. Musculoskeletal: No Muscle Wasting Lymphatic: No Cervical, Supraclavicular, or Inguinal Adenopathy Neurological: Cranial nerves II-XII grossly intact Psych/Mental Status: Normal Affect, Appropriate Vitals/I&O's: Vital Signs Temp Pulse Resp BP Pulse Ox 98.4 F 82 16 133/59 H 95 03/17/18 14:30 03/17/18 15:40 03/17/18 14:30 03/17/18 14:30 03/17/18 14:30 Oxygen Flow Rate (L/min) 2 Oxygen Delivery Method Nasal Cannula Weight: 93.1 kg Body Mass Index (BMI) 31.1 Intake and Output for Last 24 Hours 03/15/18 03/16/18 03/17/18 23:59 23:59 23:59 Intake Total 2019 Output Total 0 / 0 Balance 2019 Microbiology Past 72 Hours 03/17/18 06:57 Mucosa - Nasopharyngeal Respiratory Panel (PCR) - Final Laboratory Results 03/17/18 05:00: MRSA (PCR) POSITIVE H 03/17/18 06:00: WBC 19.9 H, RBC 3.41 L, Hgb 9.6 L, Hct 31.7 L, MCV 93.0, MCH 28.2, MCHC 30.3 L, RDW 15.0 H, RDW Differential 51.2 H, Plt Count 150, MPV 10.0 , Immature Gran % (Auto) 0.200, Neut % (Auto) 94.7 H, Lymph % (Auto) 3.1 L, [place] % (Auto) 1.6, Eos % (Auto) 0.3, Baso % (Auto) 0.1, Absolute Neuts (auto) 18.9 H, Absolute Lymphs (auto) 0.61 L, Total Counted Not Reportable 03/17/18 06:00: Sodium 140, Potassium 4.4, Chloride 105, Carbon Dioxide 23.0, Anion Gap 12, BUN 103 H*, Creatinine 2.57 H, Estim Creat Clear Calc 21.43, Est GFR (MDRD) Af Amer 24 L, Est GFR (MDRD) Non-Af 20 L, BUN/Creatinine Ratio 40.1 H , Glucose 159 H, Calcium 7.8 L 03/17/18 06:06: Albumin 2.2 L 03/17/18 07:12: POC Glucose 216 H 03/17/18 07:31: Specimen Type ART, Sample Site R Brachial, pH 7.49 H, Bicarbonate Actual 24.5, POC Total CO2 25, Base Excess 1, O2 Saturation 90 L, ABG pCO2 32.4 L, ABG pO2 54 L, Ray Test POS, O2 Delivery Device Nasal Can, Liter Flow 2.0, Blood Gas Notified Whom [facility] , Blood Gas Notified Time 730 03/17/18 10:35: POC Glucose 211 H 03/17/18 16:26: POC Glucose 280 H Current Medications Acetaminophen (Tylenol) 650 mg PO Q6H PRN PRN PRN Reason: Mild Pain (1-3)/Temp > 100.7 F Last Admin: 03/17/18 05:52 Dose: 650 mg Albuterol Sulfate (Ventolin Aerosols) 2.5 mg INHALATION Q2H PRN PRN PRN Reason: SHORTNESS OF BREATH Amlodipine Besylate (Norvasc) 5 mg PO DAILY [facility] Last Admin: 03/17/18 08:28 Dose: 5 mg Aspirin (Aspirin, Baby) 81 mg PO DAILY@0800 [facility] Last Admin: 03/17/18 08:28 Dose: 81 mg Calamine/Phenol (Calmoseptine Ointment) 1 applic TOPICAL TID [facility] PRN Reason: Protocol Last Admin: 03/17/18 11:37 Dose: 1 applicatio Clopidogrel Bisulfate (Plavix) 75 mg PO DAILY [facility] Last Admin: 03/17/18 08:28 Dose: 75 mg Diphenhydramine HCl (Benadryl) 25 mg PO TID PRN PRN PRN Reason: ITCHING Emollient Ointment (Eucerin Intensive Repair) 1 applic TOPICAL DAILY [facility] PRN Reason: Protocol Ergocalciferol (Vitamin D) 50,000 unit PO SA [facility] Ferrous Gluconate (Ferrous Gluconate) 325 mg PO DAILY@0800 [facility] Last Admin: 03/17/18 08:28 Dose: 325 mg Fluticasone Propionate (Flonase Nasal [place]) 1 spray NASAL BID [facility] Last Admin: 03/17/18 09:37 Dose: 1 spray Heparin Sodium (Porcine) (Heparin Na) 5,000 unit SC Q8 [facility] Last Admin: 03/17/18 13:22 Dose: 5,000 unit Vancomycin IV Pharmacy to Dose (1,399.5 ea/ Sodium Chloride) 500 mls @ 250 mls/ hr IV X1 PRN PRN Reason: Protocol Sodium Chloride () 250 mls @ 15 mls/hr IV .[id number] PRN PRN Reason: SALINE FLUSH Vancomycin HCl 750 mg/ Sodium (Chloride) 265 mls @ 250 mls/hr IV Q24H DIANELYS Cefepime HCl 1 gm/ Sodium (Chloride) 50 mls @ 100 mls/hr IV Q24 [facility] Last Admin: 03/17/18 10:36 Dose: 100 mls/hr Insulin Glargine (Lantus (Bkc)) 30 units SC QHS [facility] Insulin Human Lispro (Humalog Kwikpen (Bkc)) 10 unit SQ BREAKFAST [facility] Last Admin: 03/17/18 08:25 Dose: 10 u Insulin Human Lispro (Humalog Kwikpen (Bkc)) 10 unit SQ DINNER [facility] Insulin Human Lispro (Humalog Kwikpen (Bkc)) 10 unit SQ LUNCH [facility] Last Admin: 03/17/18 11:35 Dose: 10 u Insulin Human Lispro (Humalog Kwikpen (Bkc)) 0 unit SQ ACHS [facility] PRN Reason: Protocol Last Admin: 03/17/18 11:34 Dose: 4 u Isosorbide Mononitrate (Imdur) 60 mg PO DAILY [facility] Last Admin: 03/17/18 08:28 Dose: 60 mg Loratadine (Claritin) 10 mg PO DAILY PRN PRN Reason: ITCHING Magnesium Hydroxide (Milk Of Magnesia) 30 ml PO DAILY PRN PRN PRN Reason: Constipation Metoprolol Tartrate (Lopressor (Beta Richard)) 100 mg PO BID [facility] Last Admin: 03/17/18 08:28 Dose: 100 mg Montelukast Sodium (Singulair) 10 mg PO QHS [facility] Niacin (Niaspan) 500 mg PO BID [facility] Last Admin: 03/17/18 08:28 Dose: 500 mg Nutritional Formula (Jerod - [place] Flavor) 1 packet PO BID [facility] Last Admin: 03/17/18 08:29 Dose: 1 packet Nystatin (Mycostatin Powder) 1 applic TOPICAL TID [facility] PRN Reason: Protocol Last Admin: 03/17/18 11:37 Dose: 1 applicatio Ondansetron HCl (Zofran) 4 mg IV Q8H PRN PRN PRN Reason: NAUSEA Oxycodone HCl (Oxyir) 5 - 10 mg PO Q4H PRN PRN PRN Reason: MOD-SEVERE PAIN (4-10/10) Pantoprazole Sodium (Protonix) 40 mg PO BID [facility] Last Admin: 03/17/18 08:27 Dose: 40 mg Rosuvastatin Calcium (Crestor) 2.5 mg PO HS [facility] Senna/Docusate Sodium (Senokot-S, Melvi-Colace) 2 tablet PO BID [facility] Last Admin: 03/17/18 08:27 Dose: 2 tablet Sodium Chloride () 5 - 30 ml IV UD PRN PRN Reason: SALINE FLUSH Last Admin: 03/17/18 05:53 Dose: 20 ml Zolpidem Tartrate (Ambien (Generic)) 5 mg PO QHS PRN PRN PRN Reason: INSOMNIA Medical Necessity - Tobacco Use Smoking Status: Former smoker Assessment/Plan All Active Problems (Last Reviewed 03/17/18 @ 05:40 by Jay Nieto MD) Bilateral cellulitis of lower leg (Acute) Acute on chronic respiratory failure with hypoxemia (Acute) Flu-like symptoms (Acute) BRBPR (bright red blood per rectum) (Resolved) C. difficile colitis (Resolved) Cholelithiasis (Resolved) Hyperkalemia (Resolved) 67-year-old female with multiple comorbidities including CAD status post CABG, type II DM, hypertension, CKD stage III, chronic bilateral venous stasis ulcers , with history of recurrent admissions for cellulitis who comes seen with flu- like illness, fever, worsening leukocytosis, worsening cellulitis of her extremities. 1. Acute flulike illness, unclear etiology, respiratory panel resolving, will continue supportive management 2. Sepsis secondary to worsening bilateral lower extremity cellulitis, improving , MRSA PCR is positive, preliminary blood cultures growing gram-positive cocci in chains , WBC count is better, IV cefepime and vancomycin, ID consulted, following, continue to monitor WBC 3. Bacteremia with preliminary blood which is growing gram-positive cocci in chains, will have to wait for further speciation and see if the other culture will grow 4. KIM on CKD secondary to dehydration, sepsis, creatinine improving with hydration, nephrology consulted, continue to trend labs 5. Acute on chronic hypoxic respiratory failure, improved with as needed breathing treatment 6. Hyperglycemia in a type II DM located with diabetic nephropathy, continue on the current insulin regimen with insulin sliding scale 7. Bilateral gluteal region pressure injury, wound nurse consulted 8. Hypertension, controlled, continue on current medications 9. VT prophylaxis with heparin subcu Code Visit Inpatient E&M: 65302 Subs Hosp L2
[2018-03-17] MEDS: Montelukast 10 MG Tablet PO (22:58)
[2018-03-17] MEDS: Rosuvastatin Calcium 5 MG Tablet 2.5 MG PO (23:14)
[2018-03-17 23:51] LABS: Bedside Glucose 275 mg/dL (70-110)
[2018-03-18] VITALS (16 sets, daily range): BP systolic 123–154; BP diastolic 59–71; PULSE 67–145; RESP 18–20; TEMP 36.4–37.4; O2SAT 93–99
[2018-03-18 06:02] LABS: Hematocrit 28.4 % (37-47); Hemoglobin 8.6 g/dl (12.0-15.0); Mean Corp Hgb Conc 30.3 g/gl (32-36); Mean Corpuscular Hgb 28.5 pg (27.0-32.0); Mean Platelet Vol. 10.4 fl (6.2-12.0); Platelet Count 136 K/mm3 (150-450); RBC Distribution Width CV 14.4 % (11.6-14.6); Red Blood Count 3.02 M/mm3 (4.2-5.4); White Blood Count 11.4 K/mm3 (4.4-11.0)
[2018-03-18 06:11] LABS: Scan Indicated on CBC? Y/N NO
[2018-03-18 06:31] LABS: Albumin, Serum 1.9 g/dL (3.2-5.0); BUN 109 mg/dL (7-18); BUN/Creat Ratio 46.4 RATIO (10-20); Calcium,Total 7.9 mg/dL (8.5-10.1); Chloride 107 mmol/L (98-107); Creatinine, Serum 2.35 mg/dL (0.55-1.02); EST Glomerular Filtration Rate 22 mL/min (>60); Est Glom Filt Rate - Afr Amer 27 mL/min (>60); Estimated Creatinine Clearance 23.43 ml/min; Glucose 178 mg/dL (74-106); Phosphorus 3.5 mg/dL (2.5-4.9); Potassium 4.3 mmol/L (3.5-5.1); Sodium Level 141 mmol/L (136-145)
[2018-03-18] MEDS: Magnesium Hydroxide 30 ML UDC PO (06:57)
[2018-03-18] MEDS: Heparin Injection (Vial) 5,000 UNIT/ML VIAL 5000 UNIT SC ×3 (06:57→22:18)
[2018-03-18] MEDS: Menthol/Lanolin/Calamine/Znox 113 GM Tube 1 APPLIC TOPICAL ×3 (07:00→22:14)
[2018-03-18] MEDS: Nystatin Powder 15gm Bottle 1 APPLIC TOPICAL ×3 (07:01→22:14)
[2018-03-18 07:15] LABS: Bedside Glucose 173 mg/dL (70-110)
--- NOTE | 2018-03-18 08:41 | PCM.PN.REN ---
Patient Problems: Active and Suspected Problems (Last Reviewed 03/17/18 @ 05:40 by Jay Nieto MD) Bilateral cellulitis of lower leg (Acute) Acute on chronic respiratory failure with hypoxemia (Acute) Flu-like symptoms (Acute) Subjective: Denies shortness of breath. Continues to be weak. Leukocytosis improved. Afebrile. Appetite slowly improving. Denied any nausea or vomiting. - Physical Exam General: Alert, Oriented x3, Cooperative Lungs: Diminished Cardiovascular: Regular rate Abdomen: Bowel Sounds Present, Soft, Non Tender, Non-Distended, Obese Extremities: No edema Skin: Ulcer/ Wound Musculoskeletal: No Muscle Wasting Neurological: Unsteady Gait - Debilitated Psych/Mental Status: Normal Affect, Appropriate, Alert and oriented to time, place, person, mood and affect Vital Signs Temp Pulse Resp BP Pulse Ox 99.4 F H 73 20 H 135/63 H 96 03/18/18 05:40 03/18/18 07:25 03/18/18 05:40 03/18/18 05:40 03/18/18 05:40 Oxygen Flow Rate (L/min) 2 Oxygen Delivery Method Nasal Cannula Weight: 96.1 kg Body Mass Index (BMI) 31.1 Intake and Output for Last 24 Hours 03/16/18 03/17/18 03/18/18 23:59 23:59 23:59 Intake Total 2700 / 2700 510 / 510 Output Total 150 / 150 0 / 0 Balance 2550 / 2550 510 / 510 Microbiology Past 72 Hours 03/17/18 06:57 Respiratory Panel (PCR) - Final Mucosa - Nasopharyngeal Laboratory Tests Past 24 Hrs 03/17/18 03/18/18 03/18/18 05:00 05:08 05:08 WBC 11.4 H RBC 3.02 L Hgb 8.6 L Hct 28.4 L MCV 94.0 MCH 28.5 MCHC 30.3 L RDW 14.4 RDW Differential 47.0 H Plt Count 136 L MPV 10.4 Sodium 141 Potassium 4.3 Chloride 107 Carbon Dioxide 25.0 BUN 109 H* Creatinine 2.35 H Estim Creat Clear Calc 23.43 Est GFR (MDRD) Af Amer 27 L Est GFR (MDRD) Non-Af 22 L BUN/Creatinine Ratio 46.4 H Glucose 178 H Calcium 7.9 L Phosphorus 3.5 Albumin 1.9 L MRSA (PCR) POSITIVE H POC Glucose 03/18/18 03/17/18 03/17/18 06:59 23:08 16:26 POC Glucose 173 H 275 H 280 H 03/17/18 10:35 POC Glucose 211 H Microbiology 03/17/18 02:08 Blood Culture - Preliminary Blood Culture (Wb) - Venous Streptococcus group C 03/17/18 06:57 Respiratory Panel (PCR) - Final Mucosa - Nasopharyngeal Medical Necessity - Tobacco Use Smoking Status: Former smoker Assessment/Plan All Active Problems (Last Reviewed 03/17/18 @ 05:40 by Jay Nieto MD) Bilateral cellulitis of lower leg (Acute) Acute on chronic respiratory failure with hypoxemia (Acute) Flu-like symptoms (Acute) BRBPR (bright red blood per rectum) (Resolved) C. difficile colitis (Resolved) Cholelithiasis (Resolved) Hyperkalemia (Resolved) 1.KIM on CKD stage III underlying diabetic nephropathy. Acute component likely due to prerenal event from diuretic therapy, dehydration, sepsis. Agree with IV fluids. Creatinine improved to 2.35. Continue to hold diuretics. Baseline creatinine 1.12-2.0. 2. Fever with leukocytosis bilateral leg cellulitis, upper respiratory infection, sepsis. Monitor vancomycin level. ID following 3. DM type II primary service managing 4. Hypertension stable blood pressures. 5. Lower extremity cellulitis on IV antibiotic therapy
[2018-03-18] MEDS: Pantoprazole Sodium 40 MG Tablet PO ×2 (08:57→22:15)
[2018-03-18] MEDS: Clopidogrel Bisulfate 75 MG Tablet PO (08:57)
[2018-03-18] MEDS: amLODIPine 5 MG Tablet PO (08:57)
[2018-03-18] MEDS: Senna/Docusate Sodium 1 Tablet 2 TABLET PO ×2 (08:59→22:15)
[2018-03-18] MEDS: Aspirin 81 MG TAB.CHEW PO (08:59)
[2018-03-18] MEDS: Niacin SA 500 MG Tablet PO ×2 (08:59→22:15)
[2018-03-18] MEDS: Metoprolol Tartrate 100 MG Tablet PO ×2 (08:59→22:15)
[2018-03-18] MEDS: Isosorbide Mononitrate 60 MG Tablet PO (08:59)
[2018-03-18] MEDS: Ferrous Gluconate 325 MG Tablet PO (08:59)
[2018-03-18] MEDS: Insulin Lispro 100 UNIT/ML INSULN.PEN 10 UNIT SQ ×3 (09:01→16:24)
[2018-03-18] MEDS: Insulin Lispro 100 UNIT/ML INSULN.PEN SQ ×4 (09:02→22:32)
[2018-03-18] MEDS: Fluticasone 0.05% 1 SPRAY NASAL.SRY NASAL ×2 (09:03→22:31)
--- NOTE | 2018-03-18 11:30 | PCM.PN.ID ---
Patient Problems: Active and Suspected Problems (Last Reviewed 03/17/18 @ 05:40 by Jay Nieto MD) Bilateral cellulitis of lower leg (Acute) Acute on chronic respiratory failure with hypoxemia (Acute) Flu-like symptoms (Acute) Subjective: Feeling much better, no fever, breathing fine. - Physical Exam General: Alert, Cooperative, No apparent distress Lungs: Clear to auscultation, Normal air movement Cardiovascular: Regular rate, Regular Rhythm Abdomen: Soft, Non Tender, Non-Distended Skin: Rash Present - BLE redness Vital Signs Temp Pulse Resp BP Pulse Ox 98.5 F 69 18 123/62 H 99 03/18/18 10:00 03/18/18 10:00 03/18/18 10:00 03/18/18 10:00 03/18/18 10:00 Oxygen Flow Rate (L/min) 2 Oxygen Delivery Method Nasal Cannula Weight: 96.1 kg Body Mass Index (BMI) 31.1 Intake and Output for Last 24 Hours 03/16/18 03/17/18 03/18/18 23:59 23:59 23:59 Intake Total 2700 / 2700 1093 / 1093 Output Total 150 / 150 900 / 900 Balance 2550 / 2550 193 / 193 Microbiology Past 72 Hours 03/17/18 06:57 Respiratory Panel (PCR) - Final Mucosa - Nasopharyngeal Laboratory Tests Past 24 Hrs 03/18/18 03/18/18 05:08 05:08 WBC 11.4 H RBC 3.02 L Hgb 8.6 L Hct 28.4 L MCV 94.0 MCH 28.5 MCHC 30.3 L RDW 14.4 RDW Differential 47.0 H Plt Count 136 L MPV 10.4 Sodium 141 Potassium 4.3 Chloride 107 Carbon Dioxide 25.0 BUN 109 H* Creatinine 2.35 H Estim Creat Clear Calc 23.43 Est GFR (MDRD) Af Amer 27 L Est GFR (MDRD) Non-Af 22 L BUN/Creatinine Ratio 46.4 H Glucose 178 H Calcium 7.9 L Phosphorus 3.5 Albumin 1.9 L POC Glucose 03/18/18 03/17/18 03/17/18 06:59 23:08 16:26 POC Glucose 173 H 275 H 280 H Medical Necessity - Tobacco Use Smoking Status: Former smoker Route of nutrition/ use of supplements: [] Nutritional Intake: [] IV Site: [] Blanc Catheter: [] - Assessment/Plan Antibiotics: [] Assessment/Plan: [] Active and Suspected Problems (Last Reviewed 03/17/18 @ 05:40 by Jay Nieto MD) Bilateral cellulitis of lower leg (Acute) Acute on chronic respiratory failure with hypoxemia (Acute) Flu-like symptoms (Acute) Sepsis (fever, leukocytosis) - resp pcr neg. Flu-like illness. Feeling better. Single Bcx with strep, possible contaminant. She reports legs are at baseline. Covering for possible cellulitis; past cx with mrsa, strep, burkholderia, and proteus. Will stop vanc. Cont cefepime for now. Will follow
[2018-03-18 11:35] LABS: Bedside Glucose 200 mg/dL (70-110)
--- NOTE | 2018-03-18 15:52 | PCM.PN.HOSP ---
Patient Problems: Active and Suspected Problems (Last Reviewed 03/17/18 @ 05:40 by Jay Nieto MD) Bilateral cellulitis of lower leg (Acute) Acute on chronic respiratory failure with hypoxemia (Acute) Flu-like symptoms (Acute) Subjective: Patient was seen and examined. Denied any new complaints. No acute events overnight. Feels improved. Objective: Physical Exam: General: Alert, Oriented x3, Cooperative, not pale, not jaundiced HEENT: Atraumatic, PERRLA, EOMI, Normocephalic Neck: Supple, No JVD, Negative Carotid Bruits Lungs: Clear to auscultation, Normal air movement Cardiovascular: Regular rate, No murmurs Abdomen: Bowel Sounds Present, Soft, Non Tender Extremities: CARLOS A-wraps to bilateral legs Skin: No rashes, No breakdown, - - Bilateral leg redness with multiple areas of excoriation. Stage II pressure ulcer on coccyx and area of redness on the buttocks. Musculoskeletal: No Muscle Wasting Lymphatic: No Cervical, Supraclavicular, or Inguinal Adenopathy Neurological: Cranial nerves II-XII grossly intact Psych/Mental Status: Normal Affect, Appropriate Vitals/I&O's: Vital Signs Temp Pulse Resp BP Pulse Ox 97.5 F L 69 18 130/59 H 99 03/18/18 15:44 03/18/18 15:44 03/18/18 15:44 03/18/18 15:44 03/18/18 15:44 Oxygen Flow Rate (L/min) 2 Oxygen Delivery Method Nasal Cannula Weight: 96.1 kg Body Mass Index (BMI) 31.1 Intake and Output for Last 24 Hours 03/16/18 03/17/18 03/18/18 23:59 23:59 23:59 Intake Total 2700 / 2700 1093 / 1093 Output Total 150 / 150 900 / 900 Balance 2550 / 2550 193 / 193 Microbiology Past 72 Hours 03/17/18 06:57 Mucosa - Nasopharyngeal Respiratory Panel (PCR) - Final Laboratory Results 03/17/18 16:26: POC Glucose 280 H 03/17/18 23:08: POC Glucose 275 H 03/18/18 05:08: Sodium 141, Potassium 4.3, Chloride 107, Carbon Dioxide 25.0, BUN 109 H*, Creatinine 2.35 H, Estim Creat Clear Calc 23.43, Est GFR (MDRD) Af Amer 27 L, Est GFR (MDRD) Non-Af 22 L, BUN/Creatinine Ratio 46.4 H, Glucose 178 H, Calcium 7.9 L, Phosphorus 3.5, Albumin 1.9 L 03/18/18 05:08: WBC 11.4 H, RBC 3.02 L, Hgb 8.6 L, Hct 28.4 L, MCV 94.0, MCH 28.5, MCHC 30.3 L, RDW 14.4, RDW Differential 47.0 H, Plt Count 136 L, MPV 10.4 03/18/18 06:59: POC Glucose 173 H 03/18/18 11:24: POC Glucose 200 H Current Medications Acetaminophen (Tylenol) 650 mg PO Q6H PRN PRN PRN Reason: Mild Pain (1-3)/Temp > 100.7 F Last Admin: 03/17/18 05:52 Dose: 650 mg Albuterol Sulfate (Ventolin Aerosols) 2.5 mg INHALATION Q2H PRN PRN PRN Reason: SHORTNESS OF BREATH Amlodipine Besylate (Norvasc) 5 mg PO DAILY [facility] Last Admin: 03/18/18 08:57 Dose: 5 mg Aspirin (Aspirin, Baby) 81 mg PO DAILY@0800 [facility] Last Admin: 03/18/18 08:59 Dose: 81 mg Calamine/Phenol (Calmoseptine Ointment) 1 applic TOPICAL TID [facility] PRN Reason: Protocol Last Admin: 03/18/18 14:14 Dose: 1 applicatio Clopidogrel Bisulfate (Plavix) 75 mg PO DAILY [facility] Last Admin: 03/18/18 08:57 Dose: 75 mg Diphenhydramine HCl (Benadryl) 25 mg PO TID PRN PRN PRN Reason: ITCHING Emollient Ointment (Eucerin Intensive Repair) 1 applic TOPICAL DAILY [facility] PRN Reason: Protocol Last Admin: 03/18/18 09:04 Dose: 1 applic Ergocalciferol (Vitamin D) 50,000 unit PO [facility] Ferrous Gluconate (Ferrous Gluconate) 325 mg PO DAILY@0800 [facility] Last Admin: 03/18/18 08:59 Dose: 325 mg Fluticasone Propionate (Flonase Nasal [place]) 1 spray NASAL BID [facility] Last Admin: 03/18/18 09:03 Dose: 1 spray Heparin Sodium (Porcine) (Heparin Na) 5,000 unit SC Q8 [facility] Last Admin: 03/18/18 15:22 Dose: 5,000 unit Sodium Chloride () 250 mls @ 15 mls/hr IV .[id number] PRN PRN Reason: SALINE FLUSH Cefepime HCl 1 gm/ Sodium (Chloride) 50 mls @ 100 mls/hr IV Q24 [facility] Last Admin: 03/18/18 10:29 Dose: 100 mls/hr Insulin Glargine (Lantus (Bkc)) 30 units SC QHS [facility] Last Admin: 03/17/18 23:04 Dose: 30 units Insulin Human Lispro (Humalog Kwikpen (Bkc)) 10 unit SQ BREAKFAST [facility] Last Admin: 03/18/18 09:01 Dose: 10 u Insulin Human Lispro (Humalog Kwikpen (Bkc)) 10 unit SQ DINNER [facility] Last Admin: 03/17/18 17:40 Dose: 10 u Insulin Human Lispro (Humalog Kwikpen (Bkc)) 10 unit SQ LUNCH [facility] Last Admin: 03/18/18 11:27 Dose: 10 u Insulin Human Lispro (Humalog Kwikpen (Bkc)) 0 unit SQ ACHS [facility] PRN Reason: Protocol Last Admin: 03/18/18 11:27 Dose: 4 units Isosorbide Mononitrate (Imdur) 60 mg PO DAILY [facility] Last Admin: 03/18/18 08:59 Dose: 60 mg Loratadine (Claritin) 10 mg PO DAILY PRN PRN Reason: ITCHING Magnesium Hydroxide (Milk Of Magnesia) 30 ml PO DAILY PRN PRN PRN Reason: Constipation Last Admin: 03/18/18 06:57 Dose: 30 ml Metoprolol Tartrate (Lopressor (Beta Richard)) 100 mg PO BID [facility] Last Admin: 03/18/18 08:59 Dose: 100 mg Montelukast Sodium (Singulair) 10 mg PO QHS [facility] Last Admin: 03/17/18 22:58 Dose: 10 mg Niacin (Niaspan) 500 mg PO BID [facility] Last Admin: 03/18/18 08:59 Dose: 500 mg Nutritional Formula (Jerod - [place] Flavor) 1 packet PO BID [facility] Last Admin: 03/18/18 08:59 Dose: 1 packet Nystatin (Mycostatin Powder) 1 applic TOPICAL TID [facility] PRN Reason: Protocol Last Admin: 03/18/18 14:17 Dose: 1 applicatio Ondansetron HCl (Zofran) 4 mg IV Q8H PRN PRN PRN Reason: NAUSEA Oxycodone HCl (Oxyir) 5 - 10 mg PO Q4H PRN PRN PRN Reason: MOD-SEVERE PAIN (4-10/10) Pantoprazole Sodium (Protonix) 40 mg PO BID [facility] Last Admin: 03/18/18 08:57 Dose: 40 mg Rosuvastatin Calcium (Crestor) 2.5 mg PO HS [facility] Last Admin: 03/17/18 23:14 Dose: 2.5 mg Senna/Docusate Sodium (Senokot-S, Melvi-Colace) 2 tablet PO BID [facility] Last Admin: 03/18/18 08:59 Dose: 2 tablet Sodium Chloride () 5 - 30 ml IV UD PRN PRN Reason: SALINE FLUSH Last Admin: 03/17/18 05:53 Dose: 20 ml Zolpidem Tartrate (Ambien (Generic)) 5 mg PO QHS PRN PRN PRN Reason: INSOMNIA Medical Necessity - Tobacco Use Smoking Status: Former smoker Assessment/Plan All Active Problems (Last Reviewed 03/17/18 @ 05:40 by Jay Nieto MD) Bilateral cellulitis of lower leg (Acute) Acute on chronic respiratory failure with hypoxemia (Acute) Flu-like symptoms (Acute) BRBPR (bright red blood per rectum) (Resolved) C. difficile colitis (Resolved) Cholelithiasis (Resolved) Hyperkalemia (Resolved) 67-year-old female with multiple comorbidities including CAD status post CABG, type II DM, hypertension, CKD stage III, chronic bilateral venous stasis ulcers, with history of recurrent admissions for cellulitis who comes seen with flu-like illness, fever, worsening leukocytosis, worsening cellulitis of her extremities. 1. Acute flulike illness, unclear etiology, respiratory panel resolving, will continue supportive management 2. Sepsis secondary to worsening bilateral lower extremity cellulitis, improving, MRSA PCR is positive, preliminary blood cultures growing gram-positive cocci in chains , WBC count is better, IV cefepime and vancomycin, ID consulted, following, continue to monitor WBC 3. Streptococcal bacteremia, x1 blood cultures, will wait for 2nd blood culture 4. KIM on CKD secondary to dehydration, sepsis, creatinine improving with hydration, nephrology consulted, continue to trend labs 5. Acute on chronic hypoxic respiratory failure, improved with as needed breathing treatment 6. Hyperglycemia in a type II DM located with diabetic nephropathy, uncontrolled, would increase Lantus to 34 units nightly and continue with pre-meal insulin and insulin sliding scale with Accu-Cheks. 7. Bilateral gluteal region pressure injury, wound nurse consulted 8. Hypertension, controlled, continue on current medications 9. DVT prophylaxis with heparin subcu Code Visit Inpatient E&M: 52476 Subs Hosp L2
--- NOTE | 2018-03-18 15:57 | PN_ITS ---
Patient Problems: Active and Suspected Problems (Last Reviewed 03/17/18 @ 05:40 by Jay Nieto MD) Bilateral cellulitis of lower leg (Acute) Acute on chronic respiratory failure with hypoxemia (Acute) Flu-like symptoms (Acute) Subjective: Patient was seen and examined. Denied any new complaints. No acute events overnight. Feels improved. Objective: Physical Exam: General: Alert, Oriented x3, Cooperative, not pale, not jaundiced HEENT: Atraumatic, PERRLA, EOMI, Normocephalic Neck: Supple, No JVD, Negative Carotid Bruits Lungs: Clear to auscultation, Normal air movement Cardiovascular: Regular rate, No murmurs Abdomen: Bowel Sounds Present, Soft, Non Tender Extremities: CARLOS A-wraps to bilateral legs Skin: No rashes, No breakdown, - - Bilateral leg redness with multiple areas of excoriation. Stage II pressure ulcer on coccyx and area of redness on the buttocks. Musculoskeletal: No Muscle Wasting Lymphatic: No Cervical, Supraclavicular, or Inguinal Adenopathy Neurological: Cranial nerves II-XII grossly intact Psych/Mental Status: Normal Affect, Appropriate Vitals/I&O's: Vital Signs Temp Pulse Resp BP Pulse Ox 97.5 F L 69 18 130/59 H 99 03/18/18 15:44 03/18/18 15:44 03/18/18 15:44 03/18/18 15:44 03/18/18 15:44 Oxygen Flow Rate (L/min) 2 Oxygen Delivery Method Nasal Cannula Weight: 96.1 kg Body Mass Index (BMI) 31.1 Intake and Output for Last 24 Hours 03/16/18 03/17/18 03/18/18 23:59 23:59 23:59 Intake Total 2700 / 2700 1093 / 1093 Output Total 150 / 150 900 / 900 Balance 2550 / 2550 193 / 193 Microbiology Past 72 Hours 03/17/18 06:57 Mucosa - Nasopharyngeal Respiratory Panel (PCR) - Final Laboratory Results 03/17/18 16:26: POC Glucose 280 H 03/17/18 23:08: POC Glucose 275 H 03/18/18 05:08: Sodium 141, Potassium 4.3, Chloride 107, Carbon Dioxide 25.0, BUN 109 H*, Creatinine 2.35 H, Estim Creat Clear Calc 23.43, Est GFR (MDRD) Af Amer 27 L, Est GFR (MDRD) Non-Af 22 L, BUN/Creatinine Ratio 46.4 H, Glucose 178 H, Calcium 7.9 L, Phosphorus 3.5, Albumin 1.9 L 03/18/18 05:08: WBC 11.4 H, RBC 3.02 L, Hgb 8.6 L, Hct 28.4 L, MCV 94.0, MCH 28.5, MCHC 30.3 L, RDW 14.4, RDW Differential 47.0 H, Plt Count 136 L, MPV 10.4 03/18/18 06:59: POC Glucose 173 H 03/18/18 11:24: POC Glucose 200 H Current Medications Acetaminophen (Tylenol) 650 mg PO Q6H PRN PRN PRN Reason: Mild Pain (1-3)/Temp > 100.7 F Last Admin: 03/17/18 05:52 Dose: 650 mg Albuterol Sulfate (Ventolin Aerosols) 2.5 mg INHALATION Q2H PRN PRN PRN Reason: SHORTNESS OF BREATH Amlodipine Besylate (Norvasc) 5 mg PO DAILY [facility] Last Admin: 03/18/18 08:57 Dose: 5 mg Aspirin (Aspirin, Baby) 81 mg PO DAILY@0800 [facility] Last Admin: 03/18/18 08:59 Dose: 81 mg Calamine/Phenol (Calmoseptine Ointment) 1 applic TOPICAL TID [facility] PRN Reason: Protocol Last Admin: 03/18/18 14:14 Dose: 1 applicatio Clopidogrel Bisulfate (Plavix) 75 mg PO DAILY [facility] Last Admin: 03/18/18 08:57 Dose: 75 mg Diphenhydramine HCl (Benadryl) 25 mg PO TID PRN PRN PRN Reason: ITCHING Emollient Ointment (Eucerin Intensive Repair) 1 applic TOPICAL DAILY [facility] PRN Reason: Protocol Last Admin: 03/18/18 09:04 Dose: 1 applic Ergocalciferol (Vitamin D) 50,000 unit PO [facility] Ferrous Gluconate (Ferrous Gluconate) 325 mg PO DAILY@0800 [facility] Last Admin: 03/18/18 08:59 Dose: 325 mg Fluticasone Propionate (Flonase Nasal [place]) 1 spray NASAL BID [facility] Last Admin: 03/18/18 09:03 Dose: 1 spray Heparin Sodium (Porcine) (Heparin Na) 5,000 unit SC Q8 [facility] Last Admin: 03/18/18 15:22 Dose: 5,000 unit Sodium Chloride () 250 mls @ 15 mls/hr IV .[id number] PRN PRN Reason: SALINE FLUSH Cefepime HCl 1 gm/ Sodium (Chloride) 50 mls @ 100 mls/hr IV Q24 [facility] Last Admin: 03/18/18 10:29 Dose: 100 mls/hr Insulin Glargine (Lantus (Bkc)) 30 units SC QHS [facility] Last Admin: 03/17/18 23:04 Dose: 30 units Insulin Human Lispro (Humalog Kwikpen (Bkc)) 10 unit SQ BREAKFAST [facility] Last Admin: 03/18/18 09:01 Dose: 10 u Insulin Human Lispro (Humalog Kwikpen (Bkc)) 10 unit SQ DINNER [facility] Last Admin: 03/17/18 17:40 Dose: 10 u Insulin Human Lispro (Humalog Kwikpen (Bkc)) 10 unit SQ LUNCH [facility] Last Admin: 03/18/18 11:27 Dose: 10 u Insulin Human Lispro (Humalog Kwikpen (Bkc)) 0 unit SQ ACHS [facility] PRN Reason: Protocol Last Admin: 03/18/18 11:27 Dose: 4 units Isosorbide Mononitrate (Imdur) 60 mg PO DAILY [facility] Last Admin: 03/18/18 08:59 Dose: 60 mg Loratadine (Claritin) 10 mg PO DAILY PRN PRN Reason: ITCHING Magnesium Hydroxide (Milk Of Magnesia) 30 ml PO DAILY PRN PRN PRN Reason: Constipation Last Admin: 03/18/18 06:57 Dose: 30 ml Metoprolol Tartrate (Lopressor (Beta Richard)) 100 mg PO BID [facility] Last Admin: 03/18/18 08:59 Dose: 100 mg Montelukast Sodium (Singulair) 10 mg PO QHS [facility] Last Admin: 03/17/18 22:58 Dose: 10 mg Niacin (Niaspan) 500 mg PO BID [facility] Last Admin: 03/18/18 08:59 Dose: 500 mg Nutritional Formula (Jerod - [place] Flavor) 1 packet PO BID [facility] Last Admin: 03/18/18 08:59 Dose: 1 packet Nystatin (Mycostatin Powder) 1 applic TOPICAL TID [facility] PRN Reason: Protocol Last Admin: 03/18/18 14:17 Dose: 1 applicatio Ondansetron HCl (Zofran) 4 mg IV Q8H PRN PRN PRN Reason: NAUSEA Oxycodone HCl (Oxyir) 5 - 10 mg PO Q4H PRN PRN PRN Reason: MOD-SEVERE PAIN (4-10/10) Pantoprazole Sodium (Protonix) 40 mg PO BID [facility] Last Admin: 03/18/18 08:57 Dose: 40 mg Rosuvastatin Calcium (Crestor) 2.5 mg PO HS [facility] Last Admin: 03/17/18 23:14 Dose: 2.5 mg Senna/Docusate Sodium (Senokot-S, Melvi-Colace) 2 tablet PO BID [facility] Last Admin: 03/18/18 08:59 Dose: 2 tablet Sodium Chloride () 5 - 30 ml IV UD PRN PRN Reason: SALINE FLUSH Last Admin: 03/17/18 05:53 Dose: 20 ml Zolpidem Tartrate (Ambien (Generic)) 5 mg PO QHS PRN PRN PRN Reason: INSOMNIA Medical Necessity - Tobacco Use Smoking Status: Former smoker Assessment/Plan All Active Problems (Last Reviewed 03/17/18 @ 05:40 by Jay Nieto MD) Bilateral cellulitis of lower leg (Acute) Acute on chronic respiratory failure with hypoxemia (Acute) Flu-like symptoms (Acute) BRBPR (bright red blood per rectum) (Resolved) C. difficile colitis (Resolved) Cholelithiasis (Resolved) Hyperkalemia (Resolved) 67-year-old female with multiple comorbidities including CAD status post CABG, type II DM, hypertension, CKD stage III, chronic bilateral venous stasis ulcers , with history of recurrent admissions for cellulitis who comes seen with flu- like illness, fever, worsening leukocytosis, worsening cellulitis of her extremities. 1. Acute flulike illness, unclear etiology, respiratory panel resolving, will continue supportive management 2. Sepsis secondary to worsening bilateral lower extremity cellulitis, improving , MRSA PCR is positive, preliminary blood cultures growing gram-positive cocci in chains , WBC count is better, IV cefepime and vancomycin, ID consulted, following, continue to monitor WBC 3. Streptococcal bacteremia, x1 blood cultures, will wait for 2nd blood culture 4. KIM on CKD secondary to dehydration, sepsis, creatinine improving with hydration, nephrology consulted, continue to trend labs 5. Acute on chronic hypoxic respiratory failure, improved with as needed breathing treatment 6. Hyperglycemia in a type II DM located with diabetic nephropathy, uncontrolled , would increase Lantus to 34 units nightly and continue with pre-meal insulin and insulin sliding scale with Accu-Cheks. 7. Bilateral gluteal region pressure injury, wound nurse consulted 8. Hypertension, controlled, continue on current medications 9. DVT prophylaxis with heparin subcu Code Visit Inpatient E&M: 04588 Subs Hosp L2
[2018-03-18 16:30] LABS: Bedside Glucose 302 mg/dL (70-110)
[2018-03-18] MEDS: 0.9% Normal Saline 1,000 ML 75 ML IV (22:14)
[2018-03-18] MEDS: Montelukast 10 MG Tablet PO (22:15)
[2018-03-18] MEDS: Rosuvastatin Calcium 5 MG Tablet 2.5 MG PO (22:17)
[2018-03-18 22:46] LABS: Bedside Glucose 275 mg/dL (70-110)
[2018-03-19] VITALS (14 sets, daily range): BP systolic 128–154; BP diastolic 60–68; PULSE 66–81; RESP 16–18; TEMP 36.6–37.2; O2SAT 93–98
[2018-03-19] MEDS: Nystatin Powder 15gm Bottle 1 APPLIC TOPICAL ×3 (05:39→21:05)
[2018-03-19] MEDS: Heparin Injection (Vial) 5,000 UNIT/ML VIAL 5000 UNIT SC ×3 (05:39→21:06)
[2018-03-19] MEDS: Menthol/Lanolin/Calamine/Znox 113 GM Tube 1 APPLIC TOPICAL ×3 (05:40→21:05)
[2018-03-19 06:12] LABS: Hematocrit 28.6 % (37-47); Hemoglobin 8.6 g/dl (12.0-15.0); Mean Corp Hgb Conc 30.1 g/gl (32-36); Mean Corpuscular Hgb 27.7 pg (27.0-32.0); Mean Corpuscular Volume 92.3 fL (81-99); Mean Platelet Vol. 9.9 fl (6.2-12.0); Platelet Count 142 K/mm3 (150-450); RBC Distribution Width CV 14.4 % (11.6-14.6); RBC Distribution Width SD 48.8 fl (35.1-43.9); White Blood Count 10.2 K/mm3 (4.4-11.0)
[2018-03-19 06:13] LABS: Scan Indicated on CBC? Y/N NO
[2018-03-19 06:40] LABS: BUN 102 mg/dL (7-18); BUN/Creat Ratio 53.1 RATIO (10-20); Chloride 110 mmol/L (98-107); Creatinine, Serum 1.92 mg/dL (0.55-1.02); EST Glomerular Filtration Rate 28 mL/min (>60); Est Glom Filt Rate - Afr Amer 34 mL/min (>60); Estimated Creatinine Clearance 28.68 ml/min; Glucose 211 mg/dL (74-106); Phosphorus 2.6 mg/dL (2.5-4.9); Potassium 4.8 mmol/L (3.5-5.1); Sodium Level 142 mmol/L (136-145)
[2018-03-19 07:06] LABS: Bedside Glucose 221 mg/dL (70-110)
[2018-03-19] MEDS: Ferrous Gluconate 325 MG Tablet PO (08:40)
[2018-03-19] MEDS: Aspirin 81 MG TAB.CHEW PO (08:40)
[2018-03-19] MEDS: Insulin Lispro 100 UNIT/ML INSULN.PEN SQ ×4 (08:41→21:07)
[2018-03-19] MEDS: Insulin Lispro 100 UNIT/ML INSULN.PEN 10 UNIT SQ ×3 (08:41→17:16)
[2018-03-19] MEDS: Pantoprazole Sodium 40 MG Tablet PO ×2 (09:34→21:05)
[2018-03-19] MEDS: Metoprolol Tartrate 100 MG Tablet PO ×2 (09:34→21:07)
[2018-03-19] MEDS: amLODIPine 5 MG Tablet PO (09:34)
[2018-03-19] MEDS: Senna/Docusate Sodium 1 Tablet 2 TABLET PO ×2 (09:34→21:05)
[2018-03-19] MEDS: Isosorbide Mononitrate 60 MG Tablet PO (09:34)
[2018-03-19] MEDS: Niacin SA 500 MG Tablet PO ×2 (09:34→21:05)
[2018-03-19] MEDS: Clopidogrel Bisulfate 75 MG Tablet PO (09:34)
--- NOTE | 2018-03-19 10:45 | CASEMGMT ---
TRI spoke with Mini at [facility] and she received insurance approval. TRI spoke with physician and patient would be ready today. SW to follow for d/c back to [facility]. Milady KELLY MSW
--- NOTE | 2018-03-19 10:46 | PCM.PN.HOSP ---
Patient Problems: Active and Suspected Problems (Last Reviewed 03/17/18 @ 05:40 by Jay Nieto MD) Bilateral cellulitis of lower leg (Acute) Acute on chronic respiratory failure with hypoxemia (Acute) Flu-like symptoms (Acute) Subjective: Patient seen and examined. Denies chest pain, feels better. Objective: Physical Exam: General: Alert, Oriented x3, Cooperative, not pale, not jaundiced HEENT: Atraumatic, PERRLA, EOMI, Normocephalic Neck: Supple, No JVD, Negative Carotid Bruits Lungs: Clear to auscultation, Normal air movement Cardiovascular: Regular rate, No murmurs Abdomen: Bowel Sounds Present, Soft, Non Tender Extremities: CARLOS A-wraps to bilateral legs Skin: No rashes, No breakdown, - - Bilateral leg redness with multiple areas of excoriation. Stage II pressure ulcer on coccyx and area of redness on the buttocks. Musculoskeletal: No Muscle Wasting Lymphatic: No Cervical, Supraclavicular, or Inguinal Adenopathy Neurological: Cranial nerves II-XII grossly intact Psych/Mental Status: Normal Affect, Appropriate Vitals/I&O's: Vital Signs Temp Pulse Resp BP Pulse Ox 98.7 F 74 16 154/67 H 98 03/19/18 09:32 03/19/18 09:34 03/19/18 09:32 03/19/18 09:32 03/19/18 09:32 Oxygen Flow Rate (L/min) 2 Oxygen Delivery Method Nasal Cannula Weight: 97.6 kg Body Mass Index (BMI) 31.1 Intake and Output for Last 24 Hours 03/17/18 03/18/18 03/19/18 23:59 23:59 23:59 Intake Total 2700 / 2700 1957 / 195 700 / 700 Output Total 150 / 150 1175 / 1175 Balance 2550 / 2550 783 / 783 700 / 700 Microbiology Past 72 Hours 03/17/18 06:57 Mucosa - Nasopharyngeal Respiratory Panel (PCR) - Final Laboratory Results 03/18/18 11:24: POC Glucose 200 H 03/18/18 16:20: POC Glucose 302 H 03/18/18 22:30: POC Glucose 275 H 03/19/18 05:10: Sodium 142, Potassium 4.8, Chloride 110 H, Carbon Dioxide 25.0, BUN 102 H*, Creatinine 1.92 H, Estim Creat Clear Calc 28.68, Est GFR (MDRD) Af Amer 34 L, Est GFR (MDRD) Non-Af 28 L, BUN/Creatinine Ratio 53.1 H, Glucose 211 H, Calcium 8.0 L, Phosphorus 2.6, Albumin 2.0 L 03/19/18 05:10: WBC 10.2, RBC 3.10 L, Hgb 8.6 L, Hct 28.6 L, MCV 92.3, MCH 27.7, MCHC 30.1 L, RDW 14.4, RDW Differential 48.8 H, Plt Count 142 L, MPV 9.9 03/19/18 07:02: POC Glucose 221 H Current Medications Acetaminophen (Tylenol) 650 mg PO Q6H PRN PRN PRN Reason: Mild Pain (1-3)/Temp > 100.7 F Last Admin: 03/17/18 05:52 Dose: 650 mg Albuterol Sulfate (Ventolin Aerosols) 2.5 mg INHALATION Q2H PRN PRN PRN Reason: SHORTNESS OF BREATH Amlodipine Besylate (Norvasc) 5 mg PO DAILY [facility] Last Admin: 03/19/18 09:34 Dose: 5 mg Aspirin (Aspirin, Baby) 81 mg PO DAILY@0800 [facility] Last Admin: 03/19/18 08:40 Dose: 81 mg Calamine/Phenol (Calmoseptine Ointment) 1 applic TOPICAL TID [facility] PRN Reason: Protocol Last Admin: 03/19/18 05:40 Dose: 1 applicatio Clopidogrel Bisulfate (Plavix) 75 mg PO DAILY [facility] Last Admin: 03/19/18 09:34 Dose: 75 mg Diphenhydramine HCl (Benadryl) 25 mg PO TID PRN PRN PRN Reason: ITCHING Emollient Ointment (Eucerin Intensive Repair) 1 applic TOPICAL DAILY [facility] PRN Reason: Protocol Last Admin: 03/18/18 09:04 Dose: 1 applic Ergocalciferol (Vitamin D) 50,000 unit PO [facility] Ferrous Gluconate (Ferrous Gluconate) 325 mg PO DAILY@0800 [facility] Last Admin: 03/19/18 08:40 Dose: 325 mg Fluticasone Propionate (Flonase Nasal Saline) 1 spray NASAL BID [facility] Last Admin: 03/19/18 09:34 Dose: Not Given Heparin Sodium (Porcine) (Heparin Na) 5,000 unit SC Q8 [facility] Last Admin: 03/19/18 05:39 Dose: 5,000 unit Sodium Chloride () 250 mls @ 15 mls/hr IV .[id number] PRN PRN Reason: SALINE FLUSH Cefepime HCl 1 gm/ Sodium (Chloride) 50 mls @ 100 mls/hr IV Q24 [facility] Last Admin: 03/19/18 09:33 Dose: 100 mls/hr Sodium Chloride () 1,000 mls @ 75 mls/hr IV .[id number] [facility] Last Admin: 03/18/18 22:14 Dose: 75 mls/hr Insulin Glargine (Lantus (Bkc)) 34 units SC QHS [facility] Last Admin: 03/18/18 22:31 Dose: 34 u Insulin Human Lispro (Humalog Kwikpen (Bkc)) 10 unit SQ BREAKFAST [facility] Last Admin: 03/19/18 08:41 Dose: 10 u Insulin Human Lispro (Humalog Kwikpen (Bkc)) 10 unit SQ DINNER [facility] Last Admin: 03/18/18 16:24 Dose: 10 u Insulin Human Lispro (Humalog Kwikpen (Bkc)) 10 unit SQ LUNCH [facility] Last Admin: 03/18/18 11:27 Dose: 10 u Insulin Human Lispro (Humalog Kwikpen (Bkc)) 0 unit SQ ACHS [facility] PRN Reason: Protocol Last Admin: 03/19/18 08:41 Dose: 4 units Isosorbide Mononitrate (Imdur) 60 mg PO DAILY [facility] Last Admin: 03/19/18 09:34 Dose: 60 mg Loratadine (Claritin) 10 mg PO DAILY PRN PRN Reason: ITCHING Magnesium Hydroxide (Milk Of Magnesia) 30 ml PO DAILY PRN PRN PRN Reason: Constipation Last Admin: 03/18/18 06:57 Dose: 30 ml Metoprolol Tartrate (Lopressor (Beta Richard)) 100 mg PO BID [facility] Last Admin: 03/19/18 09:34 Dose: 100 mg Montelukast Sodium (Singulair) 10 mg PO QHS [facility] Last Admin: 03/18/18 22:15 Dose: 10 mg Niacin (Niaspan) 500 mg PO BID [facility] Last Admin: 03/19/18 09:34 Dose: 500 mg Nutritional Formula (Jerod - [place] Flavor) 1 packet PO BID [facility] Last Admin: 03/19/18 09:33 Dose: 1 packet Nystatin (Mycostatin Powder) 1 applic TOPICAL TID [facility] PRN Reason: Protocol Last Admin: 03/19/18 05:39 Dose: 1 applicatio Ondansetron HCl (Zofran) 4 mg IV Q8H PRN PRN PRN Reason: NAUSEA Oxycodone HCl (Oxyir) 5 - 10 mg PO Q4H PRN PRN PRN Reason: MOD-SEVERE PAIN (4-10/10) Pantoprazole Sodium (Protonix) 40 mg PO BID [facility] Last Admin: 03/19/18 09:34 Dose: 40 mg Rosuvastatin Calcium (Crestor) 2.5 mg PO HS [facility] Last Admin: 03/18/18 22:17 Dose: 2.5 mg Senna/Docusate Sodium (Senokot-S, Melvi-Colace) 2 tablet PO BID [facility] Last Admin: 03/19/18 09:34 Dose: 2 tablet Sodium Chloride () 5 - 30 ml IV UD PRN PRN Reason: SALINE FLUSH Last Admin: 03/17/18 05:53 Dose: 20 ml Zolpidem Tartrate (Ambien (Generic)) 5 mg PO QHS PRN PRN PRN Reason: INSOMNIA Medical Necessity - Tobacco Use Smoking Status: Former smoker Assessment/Plan All Active Problems (Last Reviewed 03/17/18 @ 05:40 by Jay Nieto MD) Bilateral cellulitis of lower leg (Acute) Acute on chronic respiratory failure with hypoxemia (Acute) Flu-like symptoms (Acute) BRBPR (bright red blood per rectum) (Resolved) C. difficile colitis (Resolved) Cholelithiasis (Resolved) Hyperkalemia (Resolved) 67-year-old female with multiple comorbidities including CAD status post CABG, type II DM, hypertension, CKD stage III, chronic bilateral venous stasis ulcers, with history of recurrent admissions for cellulitis who comes seen with flu-like illness, fever, worsening leukocytosis, worsening cellulitis of her extremities. 1. Acute flulike illness, unclear etiology, respiratory panel negative, will continue supportive management 2. Sepsis secondary to worsening bilateral lower extremity cellulitis, improving, MRSA PCR is positive, blood cultures ?1 growing Streptococcus, WBC count is better, As with infectious disease, will discontinue antibiotics and monitor 3. Streptococcal bacteremia, x1 blood cultures, 2nd blood culture negative, likely contaminant 4. KIM on CKD secondary to dehydration, sepsis, creatinine improving with hydration, nephrology consulted, continue to trend labs 5. Acute on chronic hypoxic respiratory failure, improved with as needed breathing treatment 6. Hyperglycemia in a type II DM located with diabetic nephropathy, uncontrolled, would increase Lantus to 36 units nightly and continue with pre-meal insulin and insulin sliding scale with Accu-Cheks. 7. Bilateral gluteal region pressure injury, wound nurse consulted 8. Hypertension, controlled, continue on current medications 9. DVT prophylaxis with heparin subcu Code Visit Inpatient E&M: 86541 Subs Hosp L2
[2018-03-19 11:26] LABS: Bedside Glucose 347 mg/dL (70-110)
--- NOTE | 2018-03-19 12:23 | PCM.PN.REN ---
Patient Problems: Active and Suspected Problems (Last Reviewed 03/17/18 @ 05:40 by Jay Nieto MD) Bilateral cellulitis of lower leg (Acute) Acute on chronic respiratory failure with hypoxemia (Acute) Flu-like symptoms (Acute) Subjective: Denies fever chills. Appetite improving. Good urine output with IV fluids. Renal function continues to improve. Denied any history of black stools. Hemoglobin low at 8.6G - Physical Exam General: Alert, Oriented x3, Cooperative Oral: Moist Mucosa Lungs: Clear to auscultation Cardiovascular: Regular rate Abdomen: Bowel Sounds Present, Soft, Non Tender, Non-Distended, Obese Extremities: Edema - Mild lower extremity, legs wrapped with [place] bandage Skin: Ulcer/ Wound - Bilateral lower extremities Musculoskeletal: No Muscle Wasting, - Neurological: Cranial nerves II-XII grossly intact Psych/Mental Status: Normal Affect, Appropriate, Alert and oriented to time, place, person, mood and affect Vital Signs Temp Pulse Resp BP Pulse Ox 98.7 F 71 16 154/67 H 98 03/19/18 09:32 03/19/18 11:07 03/19/18 09:32 03/19/18 09:32 03/19/18 09:32 Oxygen Flow Rate (L/min) 2 Oxygen Delivery Method Nasal Cannula Weight: 97.6 kg Body Mass Index (BMI) 31.1 Intake and Output for Last 24 Hours 03/17/18 03/18/18 03/19/18 23:59 23:59 23:59 Intake Total 2700 / 2700 1957 / 1957 2020 / 2020 Output Total 150 / 150 1175 / 1175 325 / 325 Balance 2550 / 2550 783 / 783 1696 / 1696 Microbiology Past 72 Hours 03/17/18 06:57 Respiratory Panel (PCR) - Final Mucosa - Nasopharyngeal Laboratory Tests Past 24 Hrs 03/19/18 03/19/18 05:10 05:10 WBC 10.2 RBC 3.10 L Hgb 8.6 L Hct 28.6 L MCV 92.3 MCH 27.7 MCHC 30.1 L RDW 14.4 RDW Differential 48.8 H Plt Count 142 L MPV 9.9 Sodium 142 Potassium 4.8 Chloride 110 H Carbon Dioxide 25.0 BUN 102 H* Creatinine 1.92 H Estim Creat Clear Calc 28.68 Est GFR (MDRD) Af Amer 34 L Est GFR (MDRD) Non-Af 28 L BUN/Creatinine Ratio 53.1 H Glucose 211 H Calcium 8.0 L Phosphorus 2.6 Albumin 2.0 L POC Glucose 03/19/18 03/19/18 03/18/18 11:18 07:02 22:30 POC Glucose 347 H 221 H 275 H 03/18/18 16:20 POC Glucose 302 H Medical Necessity - Tobacco Use Smoking Status: Former smoker Assessment/Plan All Active Problems (Last Reviewed 03/17/18 @ 05:40 by Jay Nieto MD) Bilateral cellulitis of lower leg (Acute) Acute on chronic respiratory failure with hypoxemia (Acute) Flu-like symptoms (Acute) BRBPR (bright red blood per rectum) (Resolved) C. difficile colitis (Resolved) Cholelithiasis (Resolved) Hyperkalemia (Resolved) 1.KIM on CKD stage III underlying diabetic nephropathy. Acute component likely due to prerenal event from diuretic therapy, dehydration, sepsis. Agree with IV fluids. Creatinine improved to 1.9. Continue to hold diuretics and losartan [facility]. Baseline creatinine 1.12-2.0. 2. Fever with leukocytosis bilateral leg cellulitis, upper respiratory infection, sepsis. Antibiotics per infectious disease. 3. DM type II with diabetic foot ulcers, diabetic neuropathy and nephropathy. 4. Hypertension stable blood pressures. 5. Anemia suggest guaiac stools for occult blood which may be contributing to her elevated BUN.
[2018-03-19] MEDS: 0.9% Normal Saline 1,000 ML 75 ML IV (13:01)
--- NOTE | 2018-03-19 14:45 | PCM.PN.ID ---
Patient Problems: Active and Suspected Problems (Last Reviewed 03/17/18 @ 05:40 by Jay Nieto MD) Bilateral cellulitis of lower leg (Acute) Acute on chronic respiratory failure with hypoxemia (Acute) Flu-like symptoms (Acute) Subjective: No fever, no events overnight. - Physical Exam General: Alert, Cooperative, No apparent distress Lungs: Clear to auscultation, Normal air movement Cardiovascular: Regular rate, Regular Rhythm Abdomen: Soft, Non Tender, Non-Distended Skin: Ulcer/ Wound - BLE mild redness Vital Signs Temp Pulse Resp BP Pulse Ox 98.7 F 71 16 154/67 H 98 03/19/18 09:32 03/19/18 11:07 03/19/18 09:32 03/19/18 09:32 03/19/18 09:32 Oxygen Flow Rate (L/min) 2 Oxygen Delivery Method Nasal Cannula Weight: 97.6 kg Body Mass Index (BMI) 31.1 Intake and Output for Last 24 Hours 03/17/18 03/18/18 03/19/18 23:59 23:59 23:59 Intake Total 2700 / 2700 1957 / 1957 Output Total 150 / 150 1175 / 1175 325 / 325 Balance 2550 / 2550 783 / 783 1696 / 1696 Microbiology Past 72 Hours 03/17/18 06:57 Respiratory Panel (PCR) - Final Mucosa - Nasopharyngeal Laboratory Tests Past 24 Hrs 03/19/18 03/19/18 05:10 05:10 WBC 10.2 RBC 3.10 L Hgb 8.6 L Hct 28.6 L MCV 92.3 MCH 27.7 MCHC 30.1 L RDW 14.4 RDW Differential 48.8 H Plt Count 142 L MPV 9.9 Sodium 142 Potassium 4.8 Chloride 110 H Carbon Dioxide 25.0 BUN 102 H* Creatinine 1.92 H Estim Creat Clear Calc 28.68 Est GFR (MDRD) Af Amer 34 L Est GFR (MDRD) Non-Af 28 L BUN/Creatinine Ratio 53.1 H Glucose 211 H Calcium 8.0 L Phosphorus 2.6 Albumin 2.0 L POC Glucose 03/19/18 03/19/18 03/18/18 11:18 07:02 22:30 POC Glucose 347 H 221 H 275 H 03/18/18 16:20 POC Glucose 302 H Medical Necessity - Tobacco Use Smoking Status: Former smoker Route of nutrition/ use of supplements: [] Nutritional Intake: [] IV Site: [] Blanc Catheter: [] - Assessment/Plan Antibiotics: [] Assessment/Plan: [] Active and Suspected Problems (Last Reviewed 03/17/18 @ 05:40 by Jay Nieto MD) Bilateral cellulitis of lower leg (Acute) Acute on chronic respiratory failure with hypoxemia (Acute) Flu-like symptoms (Acute) Sepsis (fever, leukocytosis) - resp pcr neg. Flu-like illness. Feeling better. Single Bcx with strep, contaminant. She reports legs are at baseline. Covering for possible cellulitis; past cx with mrsa, strep, burkholderia, and proteus. Stop cefepime. No evidence of bacterial infection. Will follow
[2018-03-19 16:40] LABS: Bedside Glucose 269 mg/dL (70-110)
[2018-03-19] MEDS: Montelukast 10 MG Tablet PO (21:05)
[2018-03-19] MEDS: Rosuvastatin Calcium 5 MG Tablet 2.5 MG PO (21:06)
[2018-03-19 22:05] LABS: Bedside Glucose 309 mg/dL (70-110)
[2018-03-20] VITALS (7 sets, daily range): BP systolic 158–169; BP diastolic 69–74; PULSE 69–78; RESP 18; TEMP 37.3; O2SAT 99
[2018-03-20] MEDS: 0.9% Normal Saline 1,000 ML 75 ML IV (01:54)
[2018-03-20] MEDS: Menthol/Lanolin/Calamine/Znox 113 GM Tube 1 APPLIC TOPICAL (06:02)
[2018-03-20] MEDS: Nystatin Powder 15gm Bottle 1 APPLIC TOPICAL (06:02)
[2018-03-20] MEDS: Heparin Injection (Vial) 5,000 UNIT/ML VIAL 5000 UNIT SC (06:02)
[2018-03-20 06:46] LABS: Bedside Glucose 219 mg/dL (70-110)
[2018-03-20 07:31] LABS: Albumin, Serum 1.9 g/dL (3.2-5.0); BUN 83 mg/dL (7-18); BUN/Creat Ratio 49.7 RATIO (10-20); Calcium,Total 8.3 mg/dL (8.5-10.1); Chloride 111 mmol/L (98-107); Creatinine, Serum 1.67 mg/dL (0.55-1.02); EST Glomerular Filtration Rate 33 mL/min (>60); Est Glom Filt Rate - Afr Amer 39 mL/min (>60); Estimated Creatinine Clearance 32.98 ml/min; Glucose 231 mg/dL (74-106); Phosphorus 2.4 mg/dL (2.5-4.9); Potassium 4.6 mmol/L (3.5-5.1); Sodium Level 143 mmol/L (136-145)
[2018-03-20] MEDS: Insulin Lispro 100 UNIT/ML INSULN.PEN 10 UNIT SQ ×2 (07:47→11:44)
[2018-03-20] MEDS: Insulin Lispro 100 UNIT/ML INSULN.PEN SQ ×2 (07:48→11:44)
[2018-03-20] MEDS: Isosorbide Mononitrate 60 MG Tablet PO (09:19)
[2018-03-20] MEDS: Pantoprazole Sodium 40 MG Tablet PO (09:19)
[2018-03-20] MEDS: Niacin SA 500 MG Tablet PO (09:19)
[2018-03-20] MEDS: Aspirin 81 MG TAB.CHEW PO (09:19)
[2018-03-20] MEDS: Clopidogrel Bisulfate 75 MG Tablet PO (09:19)
[2018-03-20] MEDS: amLODIPine 5 MG Tablet PO (09:19)
[2018-03-20] MEDS: Metoprolol Tartrate 100 MG Tablet PO (09:19)
[2018-03-20] MEDS: Senna/Docusate Sodium 1 Tablet 2 TABLET PO (09:19)
[2018-03-20] MEDS: Ferrous Gluconate 325 MG Tablet PO (09:19)
--- NOTE | 2018-03-20 11:37 | TREXTCAR_ITS ---
- Diet 03/19/18 11:41 Diet: Cardiac: Calorie-Controlled Is pt able to select menu?: Yes How many daily calories?: 1800 calorie - Routine Orders/Code Status O2 Liters per Minute: 2L/min O2 Frequency: Continuous Keep PO Greater than or Equal to (%): 94 Routine Lab Work: CBC - in 3 days, BMP - in 3 days - Wound(s) BLE, Bilat. feet Wound Type: cellulitis coccyx Wound Type: Pressure Injury bilateral buttocks Wound Type: Pressure Injury left ischium Wound Type: Pressure Injury right buttock Wound Type: Pressure Injury right lower leg Wound Type: Stasis Ulcer Dressing Change: Adaptic - Therapies Weight Bearing: Weight bearing as tolerated Physical Therapy: Eval and Treat Occupational Therapy: Eval and Treat - Allergies/Procedures Done in Hospital Allergies/Adverse Reactions: Allergies Penicillins Allergy (Verified 03/17/18 01:20) Rash rosiglitazone maleate [From Avandia] Allergy (Verified 03/17/18 01:20) Swelling & diarrhea simvastatin [From Zocor] Allergy (Verified 03/17/18 01:20) Muscle weakness atorvastatin calcium [From Lipitor] Adverse Reaction (Verified 03/17/18 01:20) Muscle weakness esomeprazole magnesium [From Nexium] Adverse Reaction (Verified 03/17/18 01:20) Diarrhea lansoprazole [From Prevacid] Adverse Reaction (Verified 03/17/18 01:20) Diarrhea Sulfa (Sulfonamide Antibiotics) Adverse Reaction (Verified 03/17/18 01:20) Nausea/Vom/Diarrhea from PCP office records Procedures: None - Type of Care/Length of Stay Estimated LOS: Convalescent Care Less Than 30 days Type of Care Needed: Skilled Rehab Potential: Good Prognosis: Good - Additional Orders/Day of Discharge Additional Orders: Aggressive wound care. Daily dressings of legs. Note changes to your medications - off Lasix and Losartan. Needs repeat BMP within 3 days. Not on antibiotics. Need to ambulate as can be tolerated. Monitor BP , may need to increase amlodipine if needed. BP was fluctuating in the hospital. Day of Discharge: 03/20/18 - Dietary and Speech Recommendations Dietitian Recommendations/Changes: Recommend diet change to 1800 calorie, cardiac/low-sodium diet with 60 gram protein restriction as needed if renal status does not improve. - Follow Up Care Primary Care Physician: Kim Field MD [Primary Care Provider] - Please follow up with your Primary Care Physician in: within 2 weeks of discharge Please Follow Up With: Minda Haynes DO When: 1 week
--- NOTE | 2018-03-20 11:44 | DS.PCM_ITS ---
Discharge Date and Diagnosis Date of Admission: 03/17/18 Date of Discharge: 03/20/18 - Primary Discharge Diagnosis Active and Suspected Problems (Last Reviewed 03/17/18 @ 05:40 by Jay Nieto MD) Bilateral cellulitis of lower leg (Acute) Acute on chronic respiratory failure with hypoxemia (Acute) Flu-like symptoms (Acute) - Secondary Discharge Diagnosis Chronic Problems (Last Reviewed 03/17/18 @ 05:40 by Jay Nieto MD) Hyperlipidemia (Chronic) Hypertension (Chronic) H/O coronary artery bypass surgery (Chronic ~2007) CABG x 3 STORY-LAD, SVG-RCA, SVG-Cx 2007 Atherosclerosis of coronary artery of [place] heart without angina pectoris ( Chronic) CABG x 3 STORY-LAD, SVG-RCA, SVG-Cx 2007 Nonrheumatic tricuspid valve regurgitation (Chronic) Secondary pulmonary arterial hypertension (Chronic) Non-rheumatic aortic stenosis (Chronic) Ulcer of right lower extremity with fat layer exposed (Chronic) anterior lower extremity ulcer Venous insufficiency of both lower extremities (Chronic) Other specified peripheral vascular diseases (Chronic) Ulcer of left lower extremity with fat layer exposed (Chronic) Delayed wound healing (Chronic) Maceration of skin (Chronic) Type 2 diabetes mellitus with diabetic peripheral angiopathy without gangrene ( Chronic) Lymphedema in adult patient (Chronic) Noncompliance with treatment regimen (Chronic) Pulmonary nodules (Chronic) Obesity (BMI 30.0-34.9) (Chronic) 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) Thrombocytopenia (Chronic) Hospital Course and Treatment Imaging Results: Clinical Impression(s) from Imaging Studies Chest X-Ray 03/17/18 01:35 IMPRESSION: Bibasilar atelectasis versus infiltrate. 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 Nephrology Infectious disease Operations: None Procedures: None Summary of Care Provided: 67-year-old female with multiple comorbidities including CAD status post CABG, type II DM, hypertension, CKD stage III, chronic bilateral venous stasis ulcers , with history of recurrent admissions for cellulitis who comes seen with flu- like illness, fever, worsening leukocytosis, worsening cellulitis of her extremities. 1. Acute flulike illness, unclear etiology, respiratory panel negative, managed with supportive management. 2. Sepsis secondary to worsening bilateral lower extremity cellulitis, improved. MRSA PCR was positive, blood cultures ?1 growing Streptococcus believed to be a contaminant. WBC count improved, started on vancomycin and cefepime. ID consulted, antibiotics stopped after 3 days by ID when cellulitis and cultures were negative. 3. Streptococcal bacteremia, x1 blood cultures, 2nd blood culture negative, likely contaminant 4. KIM on CKD secondary to dehydration, sepsis, admitting creatinine was 2.81, BUN was 115, improved with IV fluids, nephrology consulted 5. Acute on chronic hypoxic respiratory failure, improved with as needed breathing treatments 6. Hyperglycemia in a type II DM located with diabetic nephropathy, blood sugars were uncontrolled in the hospital stay, Lantus was increased to 36 units , pre-meal lispro as well as insulin sliding scale with Accu-Cheks were done 7. Bilateral gluteal region pressure injury, topical wound management done. 8. Hypertension, controlled, continue on current medications Discharge Diet: Low fat/ Low Cholesterol, 2000 mg Sodium Diet, Carb Control Diet Discharge Activity: Return to Normal Activity Home Medications: Medications to take at Discharge Aspirin [Aspirin, Baby] 81 mg PO DAILY@0800 10/20/14 Metoprolol Tartrate [Lopressor (beta apryl)] 100 mg PO BID 10/21/14 Pantoprazole Sodium [Protonix] 40 mg PO BID 10/21/14 Rosuvastatin Calcium [Crestor] 2.5 mg PO QHS 10/21/14 Nitroglycerin [Nitrostat] 0.4 mg SUBLINGUAL Q5M PRN 11/24/14 Ergocalciferol [Vitamin D] 50,000 units PO SA 02/16/16 Niacinamide [Niacin] 500 mg PO BID 02/16/16 Montelukast Sodium [Singulair] 10 mg PO QHS 05/06/16 Ondansetron [Zofran Odt] 8 mg PO Q6H PRN PRN 03/31/17 Amlodipine [Norvasc] 5 mg PO DAILY 10/12/17 Clopidogrel Bisulfate [Plavix] 75 mg PO DAILY #30 tab 10/16/17 Isosorbide Mononitrate [Imdur] 60 mg PO DAILY #30 tab 10/16/17 Alpha Lipoic Acid 600 mg PO QHS 01/24/18 Acetaminophen [Tylenol Tablet] 650 mg PO Q6H PRN PRN tab 01/28/18 Albuterol Aerosols [Ventolin Aerosols] 2.5 mg INHALATION Q2H PRN PRN vial.neb. 01/28/18 Argin/Glut/Cahmb/Collag/Mv-Min [Jerod Packet] 1 each PO BID 03/17/18 Cetirizine HCl [Zyrtec] 10 mg PO DAILY PRN 03/17/18 Bisacodyl [Dulcolax] 10 mg RECTAL DAILY PRN PRN 03/18/18 Guaifenesin [Robitussin] 10 ml PO Q4H PRN PRN 03/18/18 Ferrous Gluconate 325 mg PO BIDCM tablet 03/20/18 Heparin Injection (Vial) [Heparin Na] 5,000 unit SC Q8 vial 03/20/18 Insulin Glargine [Lantus SoloStar Pen] 36 units SC QHS pen 03/20/18 Insulin Lispro [Humalog KwikPen] 10 unit SQ BREAKFAST insuln.pen 03/20/18 Insulin Lispro [Humalog KwikPen] 10 unit SQ DINNER insuln.pen 03/20/18 Insulin Lispro [Humalog KwikPen] 10 unit SQ LUNCH insuln.pen 03/20/18 Insulin Lispro [Humalog KwikPen] See Protocol SQ ACHS insuln.pen 03/20/18 Magnesium Hydroxide [Milk Of Magnesia] 30 ml PO DAILY PRN PRN udc 03/20/18 Menthol/Lanolin/Calamine/Znox [Calmoseptine Ointment] 1 applic TOPICAL TID tube 03/20/18 Nystatin Powder [Mycostatin Powder] 1 applic TOPICAL TID bottle 03/20/18 Senna/Docusate Sodium [Senokot-S] 2 tablet PO BID PRN tablet 03/20/18 Primary Care Physician: Kim Field MD [Primary Care Provider] - Please follow up with your Primary Care Physician in: within 2 weeks of discharge Please Follow Up With: Minda Haynes DO When: 1 week Disposition: Shelter facility Minutes spent on discharge:: 40 Patient Condition:: Stable Medical Necessity - Tobacco Use Smoking Status: Former smoker Tobacco Use: Non-smoker Meaningful Use Info Meaningful Use Diagnoses (Choose all that apply): None applicable Code Visit Inpatient E&M: 56058 Disch Hosp
[2018-03-20 11:56] LABS: Bedside Glucose 321 mg/dL (70-110)
--- NOTE | 2018-03-20 13:18 | MDS.RN ---
report called to Joan FINN at [facility]
== END 2018-03-20 14:25 | disposition skilled nursing facility (03) | DRG 416 ==
LOC: ED 01:50 → PCU 03:26
PROVIDERS: Internal Medicine Nephrology; Admitting Provider Hospitalist; Emergency Provider Emergency Medicine; Family Provider Internal Medicine; PCP Internal Medicine; Visit Provider Internal Medicine
DX: A41.9 Sepsis, unspecified organism (principal); L03.116 Cellulitis of left lower limb; J96.21 Acute and chronic respiratory failure with hypoxia; N18.3 Chronic kidney disease, stage 3 (moderate); I13.0 Hypertensive heart and chronic kidney disease with heart failure and stage 1 through stage 4 chronic kidney disease, or unspecified chronic kidney disease; D69.6 Thrombocytopenia, unspecified; I35.0 Nonrheumatic aortic (valve) stenosis; N17.9 Acute kidney failure, unspecified; E11.51 Type 2 diabetes mellitus with diabetic peripheral angiopathy without gangrene; L89.321 Pressure ulcer of left buttock, stage 1; L89.319 Pressure ulcer of right buttock, unspecified stage; I50.30 Unspecified diastolic (congestive) heart failure; L03.115 Cellulitis of right lower limb; E78.5 Hyperlipidemia, unspecified; Z95.1 Presence of aortocoronary bypass graft; I27.21 Secondary pulmonary arterial hypertension; I87.2 Venous insufficiency (chronic) (peripheral); E66.9 Obesity, unspecified; Z68.31 Body mass index [BMI] 31.0-31.9, adult; E11.22 Type 2 diabetes mellitus with diabetic chronic kidney disease; E11.65 Type 2 diabetes mellitus with hyperglycemia; Z87.891 Personal history of nicotine dependence; Z79.4 Long term (current) use of insulin; E83.51 Hypocalcemia; R69 Illness, unspecified
CPT/HCPCS: 36415; 36600; 71045; 80048; 80069; 81001; 82040; 82570; 82803; 82962; 83605; 84300; 84540; 85025; 85027; 87040; 87077; 87186; 87633; 87641; 93306; 97162; 97166; 97530; 97535; 99284; J7030; J7050; Q9957; A4216; J1940

== ENCOUNTER → 2018-07-13 11:05 | Outpatient (CLI) | payer MEDICAID, SELFPAY ==
--- NOTE | 2018-07-13 11:06 | ART_ITS ---
Reason For Study: PVD Left Segmental Pressures Left brachial= 170mmHg. Left posterior tibial artery = >254mmHg. Left dorsalis pedis artery = >254mmHg. The left dorsalis pedis waveforms are triphasic. The left posterior tibial artery waveforms are triphasic. Right Segmental Pressures Right brachial= 168mmHg. Right posterior tibial artery = >254mmHg. Right dorsalis pedis artery = >254mmHg. The right dorsalis pedis waveforms are triphasic. The right posterior tibial artery waveforms are triphasic. Indices The right ankle brachial index by the dorsalis pedis is NC. The right ankle brachial index by the posterior tibial artery is NC. The left ankle brachial index by the dorsalis pedis is NC. The left ankle brachial index by the posterior tibial artery is NC. Interpretation Summary Unable to obtain bilateral lower extremity ankle/brachial indices secondary to non-compressible vessels consistent with medial calcification of vessel ortiz. Bilateral PT and DP waveforms are triphasic and volume pulse recordings demonstrate normal amplification at the calf. Ankle waveforms are mildly depressed. Findings suggest calcification of vessel ortiz making non-invasive interpretation incomplete. Waveforms are maintained distally suggesting mild disease bilaterally without evidence for critical ischemia bilaterally to the level of the ankles. Ordering Physician: Gregory Rosado Referring Physician: Kim Field M.D. Performed By: Silverio Zhong RVT and Student
== END ==
PROVIDERS: Family Provider Internal Medicine; PCP Internal Medicine; Referring Provider Surgery; Visit Provider Surgery
DX: I73.89 Other specified peripheral vascular diseases (principal)
CPT/HCPCS: 93923

== ENCOUNTER 2018-09-24 18:59 | Inpatient (IN) | payer MEDICAID, SELFPAY ==
[2018-09-24] VITALS (9 sets, daily range): BP systolic 106–132; BP diastolic 44–59; PULSE 73–82; RESP 16–38; TEMP 37.7–37.8; O2SAT 76–100; BMI 37.5
--- NOTE | 2018-09-24 19:43 | EKG12_ITS ---
Test Reason : Blood Pressure : / mmHG Vent. Rate : 082 BPM Atrial Rate : 082 BPM P-R Int : 114 ms QRS Dur : 062 ms QT Int : 332 ms P-R-T Axes : 056 020 198 degrees QTc Int : 387 ms Normal sinus rhythm Low voltage QRS Septal infarct , age undetermined Nonspecific ST & T Wave Abnormality Abnormal ECG Confirmed by VIOLETTE CHANCE, VIKTOR ([id number]), non linear editor FRANCIA HILLS ([id number]) on 09/27/2018 1:52:47 PM Referred By: Duc Echeverria Confirmed By:VIKTOR OAKES MD
--- NOTE | 2018-09-24 19:47 | ED.VISSUMM ---
- ER Visit Summary Date of Service: 09/24/18 Chief Complaint: Hypoxia and lethargy History of Present Illness: The patient is a 67 F who presents from a shelter facility for increased lethargy and hypoxia on room air. Patient was noted to be lethargic with a room air sat of 66%. EMS was called and place patient on nasal cannula, with increased to 76%. patient was given a breathing treatment with improvement. 76% upon arrival to the emergency department. History is limited secondary to patient obtundation. Chart review shows history of acute on chronic respiratory failure, kidney disease, diabetes, hypertension, cellulitis, chronic venous stasis as well as other multiple medical problems. Physical Examination: Vital signs: afebrile 99.9, hemodynamically stable, hypoxic, 99% on nonrebreather General: well nourished, well developed, ill-appearing, moans to tactile stimulation, attempts to open eyes Skin: warm, dry, no rash, pale HEENT: normocephalic and atraumatic; pupils are pinpoint, dry mucous membranes Cardiovascular: regular rate and rhythm without murmurs, symmetric significant peripheral edema with [place] wraps providing compression to bilateral lower extremities, distal extremities warm Respiratory: Tachypnea, rales noted on the left side, right side clear Abdominal: Abdomen is soft, nontender with normoactive bowel sounds, no guarding or rebound, no masses MSK: Generalized weakness, no obvious deformities Neuro: Responds to tactile stimulation. Test Results: Abnormal Lab Results 09/24/18 09/24/18 09/24/18 19:08 19:08 19:08 WBC 9.9 RBC 3.26 L Hgb 9.9 L Hct 34.1 L MCV 104.6 H MCH 30.4 MCHC 29.0 L RDW 17.0 H RDW Differential 62.9 H Plt Count 150 MPV 10.6 Immature Gran % (Auto) 0.200 Neut % (Auto) 93.8 H Lymph % (Auto) 3.0 L Tift % (Auto) 2.5 Eos % (Auto) 0.4 Baso % (Auto) 0.1 Absolute Neuts (auto) 9.3 H Absolute Lymphs (auto) 0.30 L Total Counted Not Reportable Differential Comment SCANNED PT 15.5 H INR 1.3 APTT 28.6 Specimen Type Sample Site pH Bicarbonate Actual POC Total CO2 Base Excess O2 Saturation ABG pCO2 ABG pO2 Ray Test O2 Delivery Device Liter Flow Blood Gas Notified Whom Sodium 146 H Potassium 6.2 H* Chloride 119 H Carbon Dioxide 22.0 Anion Gap 5 BUN 54 H Creatinine 1.86 H Estim Creat Clear Calc 29.61 Est GFR (MDRD) Af Amer 35 L Est GFR (MDRD) Non-Af 29 L BUN/Creatinine Ratio 29.0 H Glucose 72 L Lactic Acid Calcium 7.5 L Total Bilirubin 0.50 AST 26 ALT 28 Alkaline Phosphatase 130 H Ammonia Total Creatine Kinase 72 Troponin I 0.063 H Total Protein 5.3 L Albumin 2.2 L Globulin 3.1 Albumin/Globulin Ratio 0.7 L Urine Color Urine Clarity Urine pH Ur Specific Monroe Urine Protein Urine Glucose (UA) Urine Ketones Urine Occult Blood Urine Nitrite Urine Bilirubin Urine Urobilinogen Ur Leukocyte Esterase Urine RBC Urine WBC Ur Squamous Epith Cells Calcium Oxalate Crystal Urine Bacteria Hyaline Casts Fine Granular Casts Urine Mucus POC Glucose 09/24/18 09/24/18 09/24/18 19:08 19:56 20:13 WBC RBC Hgb Hct MCV MCH MCHC RDW RDW Differential Plt Count MPV Immature Gran % (Auto) Neut % (Auto) Lymph % (Auto) Tift % (Auto) Eos % (Auto) Baso % (Auto) Absolute Neuts (auto) Absolute Lymphs (auto) Total Counted Differential Comment PT INR APTT Specimen Type ART Sample Site L Radial pH 7.22 L Bicarbonate Actual 20.1 L POC Total CO2 22 Base Excess -8 L O2 Saturation 95 ABG pCO2 49.5 H ABG pO2 91 Ray Test POS O2 Delivery Device NRB Mask Liter Flow 15.0 Blood Gas Notified Whom ED MD Sodium Potassium Chloride Carbon Dioxide Anion Gap BUN Creatinine Estim Creat Clear Calc Est GFR (MDRD) Af Amer Est GFR (MDRD) Non-Af BUN/Creatinine Ratio Glucose Lactic Acid 0.9 Calcium Total Bilirubin AST ALT Alkaline Phosphatase Ammonia 17.0 Total Creatine Kinase Troponin I Total Protein Albumin Globulin Albumin/Globulin Ratio Urine Color Urine Clarity Urine pH Ur Specific [place] Urine Protein Urine Glucose (UA) Urine Ketones Urine Occult Blood Urine Nitrite Urine Bilirubin Urine Urobilinogen Ur Leukocyte Esterase Urine RBC Urine WBC Ur Squamous Epith Cells Calcium Oxalate Crystal Urine Bacteria Hyaline Casts Fine Granular Casts Urine Mucus POC Glucose 09/24/18 09/24/18 20:25 20:29 WBC RBC Hgb Hct MCV MCH MCHC RDW RDW Differential Plt Count MPV Immature Gran % (Auto) Neut % (Auto) Lymph % (Auto) Tift % (Auto) Eos % (Auto) Baso % (Auto) Absolute Neuts (auto) Absolute Lymphs (auto) Total Counted Differential Comment PT INR APTT Specimen Type Sample Site pH Bicarbonate Actual POC Total CO2 Base Excess O2 Saturation ABG pCO2 ABG pO2 Ray Test O2 Delivery Device Liter Flow Blood Gas Notified Whom Sodium Potassium Chloride Carbon Dioxide Anion Gap BUN Creatinine Estim Creat Clear Calc Est GFR (MDRD) Af Amer Est GFR (MDRD) Non-Af BUN/Creatinine Ratio Glucose Lactic Acid Calcium Total Bilirubin AST ALT Alkaline Phosphatase Ammonia Total Creatine Kinase Troponin I Total Protein Albumin Globulin Albumin/Globulin Ratio Urine Color Kenisha Urine Clarity Cloudy Urine pH 5.0 Ur Specific [place] 1.025 Urine Protein 500 H Urine Glucose (UA) Normal Urine Ketones 5 H Urine Occult Blood 10 H Urine Nitrite Negative Urine Bilirubin Negative Urine Urobilinogen 4 H Ur Leukocyte Esterase 25 H Urine RBC 0 SEEN Urine WBC 0-5 SEEN Ur Squamous Epith Cells 0 SEEN Calcium Oxalate Crystal RARE Urine Bacteria 0 SEEN Hyaline Casts 0-5 SEEN Fine Granular Casts 5-10 SEEN Urine Mucus 1+ POC Glucose 74 Clinical Impression(s) from Imaging Studies Chest X-Ray 09/24/18 19:55 IMPRESSION: Poor inspiration. Right lower lung field infiltrate and/or atelectasis. Increased pulmonic density also noted in the left perihilar area. These abnormalities represent new interval findings. Mild cardiomegaly. Status post sternotomy. Electronically Signed: Tristen Coronel MD at 21:35 EDT , Service support , Medications Given Sodium Chloride () 1,000 mls @ 999 mls/hr IV .Q1H1M DIANELYS Last Admin: 09/24/18 21:21 Dose: 30 mls/hr Admin: 09/24/18 20:00 Dose: 999 mls/hr Levofloxacin (Levaquin Iv) 750 mg in 150 mls @ 150 mls/hr IV X1 ONE Stop: 09/24/18 22:46 Vancomycin HCl 2,000 mg/ (Dextrose) 290 mls @ 250 mls/hr IV X1 ONE Stop: 09/24/18 23:00 Discontinued Medications Albuterol/Ipratropium (Duoneb) 3 ml INHALATION X1 ONE Stop: 09/24/18 19:45 Last Admin: 09/24/18 20:14 Dose: 3 ml Calcium Gluconate () 1 gm IV X1 ONE Stop: 09/24/18 20:31 Last Admin: 09/24/18 21:17 Dose: 1 gm Dextrose (D50w Syringe) 25 gm IV X1 ONE Stop: 09/24/18 20:31 Last Admin: 09/24/18 21:02 Dose: 25 gm Insulin Human Lispro 5 unit/ N (/A) 0.05 mls @ 3 mls/hr IV X1 ONE Stop: 09/24/18 20:31 Last Admin: 09/24/18 21:02 Dose: 3 mls/hr Emergency Department Course and Treatment: Patient presented hypoxic with altered mental status, responsive to tactile stimulation but otherwise somnolent. Patient was placed on nonrebreather and had good O2 saturation. She was maintaining her own airway without any difficulty. Workup was performed for underlying cause of patient's hypersomnolence and hypoxia. Labs showed no leukocytosis. Potassium was elevated at 6.2. Troponin elevated at 0.063. Lactate was normal. Otherwise patient had no significant lab abnormalities. Chest x-ray showed concern for right lower lobe infiltrate. ABG was performed and was consistent with primary respiratory acidosis. EKG showed a sinus rhythm with nonspecific ST and T wave changes. Patient's hyperkalemia was treated with calcium gluconate, insulin and D50. Patient also had received a breathing treatment prior to arrival. Patient was started on vancomycin and Levaquin for coverage of healthcare associated pneumonia. CT of the head was performed and showed no sign of intracranial hemorrhage or mass lesion. Patient was reevaluated and would still rouse to either voice or tactile stimulation but would return right to sleep. A repeat ABG after a period of time showed mild worsening of the pH and CO2. A repeat EKG was performed and showed no change from the initial one. Patient was evaluated by the hospitalist, and because she would arouse to voice and tactile stimulation, she was placed on BiPAP. She was admitted to the intensive care unit for further management of her altered mental status, hypoxia and hypercarbia, hyperkalemia, and healthcare associated pneumonia. Critical care time of 50 minutes for initial assessment, coordination of care, frequent re-evaluations, interpretation of ABG, EKGs, lab results, imaging, discussions with hospitalist, and documentation. Treatment Plan: [] Disposition: [] Impression: Altered mental status, hypoxic respiratory failure, hypercarbia, hyperkalemia, healthcare associated pneumonia, elevated troponin This note was generated with [employer] dictation software. It may contain incorrect words, spelling, and punctuation that were not noted in review of the chart prior to signing ED Disposition - Plan for ED Patient: Disposition: Acute Care Hospital [facility]
--- NOTE | 2018-09-24 19:55 | RAD_ITS ---
STUDY: X-RAY CHEST REASON FOR EXAM: Female, 67 years old. Trouble breathing TECHNIQUE: Single AP portable view of the chest. COMPARISON: Prior study of 03/17/2018 FINDINGS: tool checker leads are present. There is a poor inspiration. There is infiltrate and/or atelectasis of the right lower lobe. Increased colonic density of the left perihilar region is also noted. There is no demonstrated pleural abnormality. There is mild cardiomegaly. Status post sternotomy changes are present. Normal mediastinum and kel. Normal visualized pulmonary arteries. There are calcified plaques of the aortic arch. Normal visualized thoracic spine. Normal visualized ribs, clavicles, and shoulders. There is no demonstrated abnormality of the visualized soft tissue structures of the upper abdomen. RAD/Chest 1 View (Portable) IMPRESSION: Poor inspiration. Right lower lung field infiltrate and/or atelectasis. Increased pulmonic density also noted in the left perihilar area. These abnormalities represent new interval findings. Mild cardiomegaly. Status post sternotomy. Electronically Signed: Tristen Coronel MD at 21:35 EDT , Service support ,
[2018-09-24 19:57] LABS: International Normalized Ratio 1.3; Prothrombin Time (Protime)PT. 15.5 SECONDS (11.7-14.9)
[2018-09-24 19:58] LABS: Absolute Neutrophil Count 9.3 X10^3/uL (2.0-7.7); Basophil# 0.01 X10^3/uL; Basophil% 0.1 % (0-1); Differential Indicated SCAN CRITERIA MET; Eosinophil# 0.04 X10^3/uL; Eosinophils% 0.4 % (0-5); Hematocrit 34.1 % (37-47); Hemoglobin 9.9 g/dl (12.0-15.0); Mean Corpuscular Hgb 30.4 pg (27.0-32.0); Mean Corpuscular Volume 104.6 fL (81-99); Mean Platelet Vol. 10.6 fl (6.2-12.0); Monocyte# 0.25 X10^3/uL; Monocyte% 2.5 % (0-10); Neutrophil % 93.8 % (47-70); POSITIVE COUNT NO; POSITIVE DIFFERENTIAL YES; POSITIVE MORPHOLOGY NO; Partial Thromboplast Time 28.6 Seconds (24.1-36.2); Platelet Count 150 K/mm3 (150-450); RBC Distribution Width SD 62.9 fl (35.1-43.9); Red Blood Count 3.26 M/mm3 (4.2-5.4); White Blood Count 9.9 K/mm3 (4.4-11.0)
[2018-09-24] MEDS: 0.9% Normal Saline 1,000 ML 999 ML IV ×2 (20:00→22:34)
[2018-09-24 20:05] LABS: Lactic Acid 0.9 mmol/L (0.4-2.0)
[2018-09-24 20:09] LABS: ALB/GLOB Ratio 0.7 RATIO (0.9-2.4); AST(SGOT) 26 U/L (15-37); Alanine Aminotransfer ALT/SGPT 28 U/L (13-56); Albumin, Serum 2.2 g/dL (3.2-5.0); Alkaline Phosphatase 130 U/L (45-117); Anion Gap 5 (5-15); BUN 54 mg/dL (7-18); CPK Total, Creatine Kinase 72 U/L (26-192); Calcium,Total 7.5 mg/dL (8.5-10.1); Chloride 119 mmol/L (98-107); Creatinine, Serum 1.86 mg/dL (0.55-1.02); EST Glomerular Filtration Rate 29 mL/min (>60); Est Glom Filt Rate - Afr Amer 35 mL/min (>60); Estimated Creatinine Clearance 29.61 ml/min; Globulin 3.1 g/dL (2.2-4.2); Glucose 72 mg/dL (74-106); Potassium 6.2 mmol/L (3.5-5.1); Protein, Total 5.3 g/dL (6.4-8.2); Sodium Level 146 mmol/L (136-145)
--- NOTE | 2018-09-24 20:09 | ED.RN ---
LAB CALLED WITH POTASSIUM 6.2, DR. TOMPKINS INFORMED OF SAME.
[2018-09-24] MEDS: Ipratropium/Albuterol Sulfate 3 ML AMPUL.NEB INHALATION (20:14)
[2018-09-24 20:19] LABS: Differential Comment SCANNED
[2018-09-24 20:21] LABS: Allen Test POS; Base Excess -8 mmol/L (-2 to +2); Bicarbonate 20.1 mmol/L (22-26); Blood Gas Specimen Type ART; O2 Delivery Device NRB Mask; PO2 91 mmHG (75-100); SITE L Radial; SO2 95 % (95-99); Total Carbon Dioxide 22 mmol/L; pCO2 49.5 mmHg (35-45); pH 7.22 (7.35-7.45)
[2018-09-24 20:29] LABS: Bacteria 0 SEEN /hpf (None Seen); Red Blood Cells-Urine 0 SEEN /hpf (0-5); Squamous Epithelial Cells - UA 0 SEEN /hpf (5-10)
--- NOTE | 2018-09-24 20:30 | EKG12_ITS ---
Test Reason : REPEAT Blood Pressure : / mmHG Vent. Rate : 080 BPM Atrial Rate : 080 BPM P-R Int : 118 ms QRS Dur : 064 ms QT Int : 320 ms P-R-T Axes : 052 020 170 degrees QTc Int : 369 ms Normal sinus rhythm Low voltage QRS Septal infarct , age undetermined Nonspecific ST & T Wave Abnormality Abnormal ECG Confirmed by VIOLETTE CHANCE, VIKTOR ([id number]), clinical editor FRANCIA HILLS ([id number]) on 09/27/2018 1:53:43 PM Referred By: Duc Echeverria Confirmed By:VIKTOR OAKES MD
[2018-09-24 20:32] LABS: Color, Urine Amber (Yellow); Glucose, Dipstick Normal (Normal); Ketone-Dipstick 5 mg/dl (Negative); Leukocyte Esterase-Dipstick 25 /ul (Negative); Nitrite-Dipstick Negative (Negative); Occult Blood-Urine 10 /ul (Negative); Protein-Dipstick 500 mg/dl (Negative); Specific Gravity, Urine 1.025 (1.002-1.030); Urine Bilirubin Dipstick Negative (Negative); Urine Clarity Cloudy (Clear); Urine Urobilinogen 4 mg/dl (Normal)
[2018-09-24 20:40] LABS: Bedside Glucose 74 mg/dL (70-110)
[2018-09-24 20:44] LABS: Fine Granular Cast- Urine 5-10 SEEN /lpf (0-5); White Blood Cells 0-5 SEEN /hpf (0-5)
[2018-09-24 20:47] LABS: Calcium Oxalate Crystals Ur RARE /hpf (<or=2+)
[2018-09-24 20:48] LABS: Hyaline Cast 0-5 SEEN /lpf (0-5); Mucous, Urine 1+ /hpf (<or=2+)
[2018-09-24] MEDS: Dextrose 50%-Water 25 GM/50 ML DISP.SYRIN IV (21:02)
[2018-09-24] MEDS: Calcium Gluconate 1 GM/10 ML Vial IV (21:17)
[2018-09-24] MEDS: 0.9% Normal Saline 1,000 ML 30 ML IV (21:21)
--- NOTE | 2018-09-24 21:48 | CT_ITS ---
STUDY: CT BRAIN WITHOUT CONTRAST REASON FOR EXAM: Female, 67 years old. Altered mental status RADIATION DOSAGE (If Supplied By Facility): CTDIvol = ( 44.99 ) mGy, DLP = ( 748.30 ) mGycm TECHNIQUE: Transaxial CT imaging of the brain was performed without administration of intravenous contrast material. Individualized dose optimization techniques were used for this CT. COMPARISON: No relevant priors. FINDINGS: Normal soft tissue structures. Normal calvarium. There are central and cortical involutional changes. There is interval worsening with increase right frontoparietal periventricular hypodensities when compared to prior exam. There are stable bilateral periventricular hypodensities Normal basal ganglia and thalami. Normal brainstem. Normal cerebellum. There is no intracranial hemorrhage. There are no findings of an acute ischemic infarction. There is mucosal thickening within the paranasal sinuses. There are bilateral mastoid effusions. There is mucosal thickening within the paranasal sinuses. CT/Brain/Head without Contrast IMPRESSION: Worsening right frontoparietal deep white matter ischemia which may be progression of old changes however new infarct cannot be excluded. MRI brain follow-up is recommended. Bilateral deep white matter old small vessel ischemic changes as well Inflammatory changes paranasal sinuses Bilateral mastoid effusions Electronically Signed: Gregory Gordon, at 23:45 EDT Tel , Service support ,
[2018-09-24 22:00] LABS: Bedside Glucose 105 mg/dL (70-110)
[2018-09-24 22:40] LABS: Lactic Acid 0.8 mmol/L (0.4-2.0)
[2018-09-24] MEDS: levoFLOXacin IV 750 MG/150 ML BAG 150 MG IV (23:42)
[2018-09-25] VITALS (36 sets, daily range): BP systolic 74–161; BP diastolic 41–89; PULSE 71–107; RESP 9–30; TEMP 36.2–38.8; O2SAT 87–98; BMI 37.5; BMI 37.6
[2018-09-25 00:01] LABS: Base Excess -9 mmol/L (-2 to +2); Blood Gas Specimen Type ART; O2 Delivery Device Nasal Can; PO2 68 mmHG (75-100); SITE L Radial; SO2 87 % (95-99); Total Carbon Dioxide 22 mmol/L; pCO2 56.6 mmHg (35-45); pH 7.16 (7.35-7.45)
--- NOTE | 2018-09-25 00:10 | CPS ---
Critical value read to Dr. Lopez
--- NOTE | 2018-09-25 00:44 | PCM.HP.STD ---
Problem List (1) Hypoxia Status: Acute (2) Change in mental status Status: Acute Qualifiers: Altered mental status type: somnolence Qualified Code(s): R40.0 - Somnolence History of Present Illness Date of Admission: 09/25/18 Chief Complaint: Hypoxia, mental status change The patient is a 67 year old F was sent in from a local extended care facility at which she resides to the emergency room at [facility] due to a low pulse oximeter obtained at the fdc and due to a change of mental status. I talked to the [facility]dc where the patient resides, they state the patient is usually alert and oriented x3, she does have some cognitive impairment that they noted at times. The fdc stated that the patient's pulse ox on room air was 66%, when placed on 4 L, this sat only went up to 71%. Finally, fdc stated that after they gave her aerosol treatments, her pulse ox went up to 96%. Patient is not responsive to verbal stimuli, she only responds vaguely to painful stimuli. Review of systems was not obtainable from the patient. Upon arrival in the emergency room, patient's pulse ox was 76% on 4 L, lab was obtained, patient's white blood cell count was normal at 9.9, hemoglobin was 9.9, chemistry panel revealed a potassium of 6.2, sodium was 146, creatinine was 1.8, BUN was 54, glucose was 72, and patient's troponin was 0.063. Ammonia level was normal at 17. Urinalysis did not indicate a urinary tract infection. Patient had arterial blood gases obtained, pH was 7.16, PCO2 was 56, PO2 was 68, this was on 12 L. Patient's chest x-ray was read out as showing a right lower lung infiltrate and/or atelectasis, there was increased pulmonic density noted at the left perihilar area. CT of the brain was obtained which showed a worsening right frontal parietal deep white matter ischemia which may be progression of old changes, new infarct could not be excluded however and MRI of the brain was recommended for follow-up. Patient was placed on BiPAP, she will be admitted to the ICU for acute combined respiratory failure and healthcare associated pneumonia. She was given IV Levaquin and vancomycin in the emergency room, I will maintain her on meropenem, she will be seen by pulmonary medicine. If patient's mentation does not improve, patient may need further studies such as a repeat CT of the brain or an MRI of the brain. Past Medical History Past Medical History (Chronic Problems): Chronic Problems (Last Reviewed 07/30/18 @ 15:46 by Maria L Ortiz) Hyperlipidemia (Chronic) Hypertension (Chronic) H/O coronary artery bypass surgery (Chronic ~2007) CABG x 3 STORY-LAD, SVG-RCA, SVG-Cx 2008 Atherosclerosis of coronary artery of [place] heart without angina pectoris (Chronic) CABG x 3 STORY-LAD, SVG-RCA, SVG-Cx 2008 Nonrheumatic tricuspid valve regurgitation (Chronic) Secondary pulmonary arterial hypertension (Chronic) Non-rheumatic aortic stenosis (Chronic) Ulcer of right lower extremity with fat layer exposed (Chronic) anterior lower extremity ulcer Venous insufficiency of both lower extremities (Chronic) Other specified peripheral vascular diseases (Chronic) Ulcer of left lower extremity with fat layer exposed (Chronic) Delayed wound healing (Chronic) Maceration of skin (Chronic) Type 2 diabetes mellitus with diabetic peripheral angiopathy without gangrene (Chronic) Lymphedema in adult patient (Chronic) Noncompliance with treatment regimen (Chronic) Pulmonary nodules (Chronic) Obesity (BMI 30.0-34.9) (Chronic) 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) Thrombocytopenia (Chronic) Medical History: Medical History (Last Reviewed 07/30/18 @ 15:46 by Maria L Ortiz) Hyperlipidemia (Chronic) E78.5 Hypertension (Chronic) I10 Atherosclerosis of coronary artery of [place] heart without angina pectoris (Chronic) I25.10 CABG x 3 STORY-LAD, SVG-RCA, SVG-Cx 2007 Nonrheumatic tricuspid valve regurgitation (Chronic) I36.1 Secondary pulmonary arterial hypertension (Chronic) I27.21 Non-rheumatic aortic stenosis (Chronic) I35.0 Venous insufficiency of both lower extremities (Chronic) I87.2 Type 2 diabetes mellitus with diabetic peripheral angiopathy without gangrene (Chronic) E11.51 Obesity (BMI 30.0-34.9) (Chronic) E66.9 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) E11.22, N18.3 GERD (gastroesophageal reflux disease) K21.9 Peripheral neuropathy G62.9 Allergies Penicillins Allergy (Verified 07/30/18 15:47) Rash rosiglitazone maleate [From Avandia] Allergy (Verified 07/30/18 15:47) Swelling & diarrhea simvastatin [From Zocor] Allergy (Verified 07/30/18 15:47) Muscle weakness atorvastatin calcium [From Lipitor] Adverse Reaction (Verified 07/30/18 15:47) Muscle weakness esomeprazole magnesium [From Nexium] Adverse Reaction (Verified 07/30/18 15:47) Diarrhea lansoprazole [From Prevacid] Adverse Reaction (Verified 07/30/18 15:47) Diarrhea Sulfa (Sulfonamide Antibiotics) Adverse Reaction (Verified 07/30/18 15:47) Nausea/Vom/Diarrhea from PCP office records Home Medications: Ambulatory Orders Medication Instructions Recorded Aspirin [Aspirin, Baby] 81 mg PO DAILY@0800 10/20/14 Metoprolol Tartrate [Lopressor 100 mg PO BID 10/21/14 (beta apryl)] Pantoprazole Sodium [Protonix] 40 mg PO BID 10/21/14 Rosuvastatin Calcium [Crestor] 2.5 mg PO QHS 10/21/14 Nitroglycerin [Nitrostat] 0.4 mg SUBLINGUAL Q5M PRN 11/24/14 Ergocalciferol [Vitamin D] 50,000 units PO SA 02/16/16 Niacinamide [Niacin] 500 mg PO BID 02/16/16 Montelukast Sodium [Singulair] 10 mg PO QHS 05/06/16 Ondansetron [Zofran Odt] 8 mg PO Q6H PRN PRN 03/31/17 Amlodipine [Norvasc] 5 mg PO DAILY 10/12/17 Alpha Lipoic Acid 600 mg PO QHS 01/24/18 Acetaminophen [Tylenol Tablet] 650 mg PO Q6H PRN PRN tab 01/28/18 Albuterol Aerosols [Ventolin 2.5 mg INHALATION Q2H PRN PRN 01/28/18 Aerosols] vial.neb. Cetirizine HCl [Zyrtec] 10 mg PO DAILY PRN 03/17/18 Bisacodyl [Dulcolax] 10 mg RECTAL DAILY PRN PRN 03/18/18 Guaifenesin [Robitussin] 10 ml PO Q4H PRN PRN 03/18/18 Magnesium Hydroxide [Milk Of 30 ml PO DAILY PRN PRN udc 03/20/18 Magnesia] Menthol/Lanolin/Calamine/Znox 1 applic TOPICAL TID tube 03/20/18 [Calmoseptine Ointment] Senna/Docusate Sodium [Senokot-S] 2 tab PO BID PRN tab 03/20/18 Ascorbic Acid [Vitamin C] 500 mg PO DAILY@0800 09/25/18 Clopidogrel Bisulfate [Plavix] 75 mg PO DAILY 09/25/18 Ferrous Gluconate 325 mg PO BIDCM 09/25/18 Fluticasone 0.05% [Flonase Nasal 2 spray NASAL DAILY 09/25/18 [place]] Insulin Glargine [Lantus SoloStar 38 units SC QHS 09/25/18 Pen] Insulin Lispro [Humalog KwikPen] 10 unit SQ DINNER 09/25/18 Insulin Lispro [Humalog KwikPen] 10 unit SQ LUNCH 09/25/18 Insulin Lispro [Humalog KwikPen] 12 unit SQ BREAKFAST 09/25/18 Insulin Lispro [Humalog KwikPen] See Protocol SQ ACHS 09/25/18 Isosorbide Mononitrate [Imdur] 60 mg PO DAILY 09/25/18 L. Rhamnosus GG/Inulin [Culturelle 1 each PO BID 09/25/18 Probiotics Capsule] Multivitamin with Minerals 1 each PO DAILY 09/25/18 [Multiple Vitamin] Nystatin Powder [Mycostatin Powder] 1 applic TOPICAL TID 09/25/18 Prednisone 5 mg PO DAILY 09/25/18 Surgical History: Surgical History (Last Reviewed 07/30/18 @ 15:46 by Maria L Ortiz) H/O coronary artery bypass surgery (Chronic) Onset Date: ~2007 Z95.1 CABG x 3 STORY-LAD, SVG-RCA, SVG-Cx [address] Z96.21 History of left heart catheterization Onset Date: 10/15/17 Z98.890 STORY graft to the Mid LAD is patent Saphenous Vein graft to the CIRC is totally occluded Saphenous Vein graft to the Distal RCA is patent history of right femoral bypass surgery Surgical History: coronary bypass surgery, - Psychiatric History: No pertinent psych hx 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 Lives: Retirement Smoking Status: Former smoker Tobacco Use: Non-smoker Alcohol: None Drugs: None - *Family History Sibling Family History: Family History (Last Reviewed 07/30/18 @ 15:46 by Maria L Ortiz) Other CAD (coronary artery disease) History Items: Heart Disease Maternal Family History: Family History (Last Reviewed 07/30/18 @ 15:46 by Maria L Ortiz) Other CAD (coronary artery disease) History Items: No pertinent history Paternal Family History: Family History (Last Reviewed 07/30/18 @ 15:46 by Maria L Ortiz) Other CAD (coronary artery disease) History Items: No pertinent history Review of Systems Comment: Review of systems was not obtainable due to the patient's somnolence, she does not respond to any verbal stimuli, she only responds to painful stimuli VTE Information - Inpt Only VTE Present on Admission: No VTE Mechan Device Prophylaxis: None VTE Pharm Prophylaxis ordered?: No Patient Problems: Active and Suspected Problems (Last Reviewed 07/30/18 @ 15:46 by Maria L Ortiz) Hypoxia (Acute) Change in mental status (Acute) - Physical Exam General: No apparent distress, Well developed, Well nourished, Lethargic, - - Patient only responds to deep painful stimuli, she does not respond to verbal stimuli HEENT: Atraumatic, PERRLA, Normocephalic Oral: Moist Mucosa Neck: Supple, No JVD, No Nuchal Rigidity, Trachea Midline, Thyroid Normal Size and Texture Lungs: Clear to auscultation, No rhonchi, No wheeze, No rales, Diminished Cardiovascular: Regular rate, Regular Rhythm, Normal S1, Normal S2, No murmurs, No Ectopic Activity Abdomen: Bowel Sounds Present, Soft, Non Tender, Non-Distended, No hernias noted Extremities: No clubbing, No cyanosis, Edema - Generalized edema is noted in the patient's upper and lower legs, +1-+2 mm pitting Skin: No rashes, No breakdown Musculoskeletal: No Muscle Wasting Neurological: - - Patient responds to painful stimuli only by withdrawing, she does not respond to any verbal stimuli Psych/Mental Status: - - Patient responds only to painful stimuli by withdrawing, she does not respond to any verbal stimuli Vital Signs Temp Pulse Resp BP Pulse Ox 97.3 F L 73 19 H 116/56 L 97 09/25/18 00:25 09/25/18 00:25 09/25/18 00:25 09/25/18 00:25 09/25/18 00:25 Oxygen Flow Rate (L/min) 12 Oxygen Delivery Method Bi-pap Weight: 112.1 kg Body Mass Index (BMI) 37.5 Finger Stick Blood Glucose 74 Laboratory Tests Past 24 Hrs 09/24/18 09/24/18 09/24/18 19:08 19:08 19:08 WBC 9.9 RBC 3.26 L Hgb 9.9 L Hct 34.1 L MCV 104.6 H MCH 30.4 MCHC 29.0 L RDW 17.0 H RDW Differential 62.9 H Plt Count 150 MPV 10.6 Immature Gran % (Auto) 0.200 Neut % (Auto) 93.8 H Lymph % (Auto) 3.0 L [place] % (Auto) 2.5 Eos % (Auto) 0.4 Baso % (Auto) 0.1 Absolute Neuts (auto) 9.3 H Absolute Lymphs (auto) 0.30 L Total Counted Not Reportable Differential Comment SCANNED PT 15.5 H INR 1.3 APTT 28.6 Specimen Type Sample Site pH Bicarbonate Actual POC Total CO2 Base Excess O2 Saturation ABG pCO2 ABG pO2 Ray Test O2 Delivery Device Liter Flow Blood Gas Notified Whom Sodium 146 H Potassium 6.2 H* Chloride 119 H Carbon Dioxide 22.0 Anion Gap 5 BUN 54 H Creatinine 1.86 H Estim Creat Clear Calc 29.61 Est GFR (MDRD) Af Amer 35 L Est GFR (MDRD) Non-Af 29 L BUN/Creatinine Ratio 29.0 H Glucose 72 L Lactic Acid Calcium 7.5 L Total Bilirubin 0.50 AST 26 ALT 28 Alkaline Phosphatase 130 H Ammonia Total Creatine Kinase 72 Troponin I 0.063 H Total Protein 5.3 L Albumin 2.2 L Globulin 3.1 Albumin/Globulin Ratio 0.7 L Urine Color Urine Clarity Urine pH Ur Specific [place] Urine Protein Urine Glucose (UA) Urine Ketones Urine Occult Blood Urine Nitrite Urine Bilirubin Urine Urobilinogen Ur Leukocyte Esterase Urine RBC Urine WBC Ur Squamous Epith Cells Calcium Oxalate Crystal Urine Bacteria Hyaline Casts Fine Granular Casts Urine Mucus 09/24/18 09/24/18 09/24/18 19:08 19:56 20:13 WBC RBC Hgb Hct MCV MCH MCHC RDW RDW Differential Plt Count MPV Immature Gran % (Auto) Neut % (Auto) Lymph % (Auto) [place] % (Auto) Eos % (Auto) Baso % (Auto) Absolute Neuts (auto) Absolute Lymphs (auto) Total Counted Differential Comment PT INR APTT Specimen Type ART Sample Site L Radial pH 7.22 L Bicarbonate Actual 20.1 L POC Total CO2 22 Base Excess -8 L O2 Saturation 95 ABG pCO2 49.5 H ABG pO2 91 Ray Test POS O2 Delivery Device NRB Mask Liter Flow 15.0 Blood Gas Notified Whom ED Sodium Potassium Chloride Carbon Dioxide Anion Gap BUN Creatinine Estim Creat Clear Calc Est GFR (MDRD) Af Amer Est GFR (MDRD) Non-Af BUN/Creatinine Ratio Glucose Lactic Acid 0.9 Calcium Total Bilirubin AST ALT Alkaline Phosphatase Ammonia 17.0 Total Creatine Kinase Troponin I Total Protein Albumin Globulin Albumin/Globulin Ratio Urine Color Urine Clarity Urine pH Ur Specific [place] Urine Protein Urine Glucose (UA) Urine Ketones Urine Occult Blood Urine Nitrite Urine Bilirubin Urine Urobilinogen Ur Leukocyte Esterase Urine RBC Urine WBC Ur Squamous Epith Cells Calcium Oxalate Crystal Urine Bacteria Hyaline Casts Fine Granular Casts Urine Mucus 09/24/18 09/24/18 09/24/18 20:25 22:00 23:48 WBC RBC Hgb Hct MCV MCH MCHC RDW RDW Differential Plt Count MPV Immature Gran % (Auto) Neut % (Auto) Lymph % (Auto) [place] % (Auto) Eos % (Auto) Baso % (Auto) Absolute Neuts (auto) Absolute Lymphs (auto) Total Counted Differential Comment PT INR APTT Specimen Type ART Sample Site L Radial pH 7.16 L* Bicarbonate Actual 20.0 L POC Total CO2 22 Base Excess -9 L O2 Saturation 87 L ABG pCO2 56.6 H ABG pO2 68 L Ray Test NA O2 Delivery Device Nasal Can Liter Flow 12.0 Blood Gas Notified Whom ED Sodium Potassium Chloride Carbon Dioxide Anion Gap BUN Creatinine Estim Creat Clear Calc Est GFR (MDRD) Af Amer Est GFR (MDRD) Non-Af BUN/Creatinine Ratio Glucose Lactic Acid 0.8 Calcium Total Bilirubin AST ALT Alkaline Phosphatase Ammonia Total Creatine Kinase Troponin I Total Protein Albumin Globulin Albumin/Globulin Ratio Urine Color [place] Urine Clarity Cloudy Urine pH 5.0 Ur Specific [place] 1.025 Urine Protein 500 H Urine Glucose (UA) Normal Urine Ketones 5 H Urine Occult Blood 10 H Urine Nitrite Negative Urine Bilirubin Negative Urine Urobilinogen 4 H Ur Leukocyte Esterase 25 H Urine RBC 0 SEEN Urine WBC 0-5 SEEN Ur Squamous Epith Cells 0 SEEN Calcium Oxalate Crystal RARE Urine Bacteria 0 SEEN Hyaline Casts 0-5 SEEN Fine Granular Casts 5-10 SEEN Urine Mucus 1+ POC Glucose 09/24/18 09/24/18 21:58 20:29 POC Glucose 105 74 Assessment/Plan All Active Problems (Last Reviewed 07/30/18 @ 15:46 by Maria L Ortiz) Bilateral cellulitis of lower leg (Acute) Acute on chronic respiratory failure with hypoxemia (Acute) Flu-like symptoms (Acute) Hypoxia (Acute) Change in mental status (Acute) BRBPR (bright red blood per rectum) (Resolved) C. difficile colitis (Resolved) Cholelithiasis (Resolved) Hyperkalemia (Resolved) #1 acute combined respiratory failure-patient will be transferred to the ICU, repeat blood gas will be obtained on BiPAP, pulmonary medicine will participate in her care. It appears that the patient has an order for 2-5 L O2 via nasal cannula as needed for shortness of breath. It does not appear that the patient was on continuous O2 at the fdc. #2 metabolic encephalopathy-patient will be monitored #3 healthcare acquired pneumonia right lower lobe-patient was placed on meropenem, again she got IV Levaquin and vancomycin in the ER #4 Type 2 diabetes-blood sugars will be monitored #5 coronary artery disease #6 hyperlipidemia #7 hypertension #8 hyperkalemia-etiology unclear, BMP will be rechecked, I have decided not to give the patient any Kayexalate at this time #9 chronic kidney disease stage IV secondary to type 2 diabetes, labs will be monitored Patient's oral meds will be held at this time until she is more alert Code Visit Inpatient E&M: [id number] Init Hosp L3
--- NOTE | 2018-09-25 00:48 | HP.PCM_ITS ---
Problem List (1) Hypoxia Status: Acute (2) Change in mental status Status: Acute Qualifiers: Altered mental status type: somnolence Qualified Code(s): R40.0 - Somnolence History of Present Illness Date of Admission: 09/25/18 Chief Complaint: Hypoxia, mental status change The patient is a 67 year old F was sent in from a local extended care facility at which she resides to the emergency room at [facility] due to a low pulse oximeter obtained at the [facility] and due to a change of mental status. I talked to the [facility] where the patient resides, they state the patient is usually alert and oriented x3, she does have some cognitive impairment that they noted at times. The fpc stated that the patient's pulse ox on room air was 66%, when placed on 4 L, this sat only went up to 71%. Finally, fpc stated that after they gave her aerosol treatments, her pulse ox went up to 96%. Patient is not responsive to verbal stimuli, she only responds vaguely to painful stimuli. Review of systems was not obtainable from the patient. Upon arrival in the emergency room, patient's pulse ox was 76% on 4 L, lab was obtained, patient's white blood cell count was normal at 9.9, hemoglobin was 9.9, chemistry panel revealed a potassium of 6.2, sodium was 146, creatinine was 1.8, BUN was 54, glucose was 72, and patient's troponin was 0.063. Ammonia level was normal at 17. Urinalysis did not indicate a urinary tract infection. Patient had arterial blood gases obtained, pH was 7.16, PCO2 was 56, PO2 was 68, this was on 12 L. Patient's chest x-ray was read out as showing a right lower lung infiltrate and/or atelectasis, there was increased pulmonic density noted at the left perihilar area. CT of the brain was obtained which showed a worsening right frontal parietal deep white matter ischemia which may be progression of old changes, new infarct could not be excluded however and MRI of the brain was recommended for follow-up. Patient was placed on BiPAP, she will be admitted to the ICU for acute combined respiratory failure and healthcare associated pneumonia. She was given IV Levaquin and vancomycin in the emergency room, I will maintain her on meropenem, she will be seen by pulmonary medicine. If patient's mentation does not improve, patient may need further studies such as a repeat CT of the brain or an MRI of the brain. Past Medical History Past Medical History (Chronic Problems): Chronic Problems (Last Reviewed 07/30/18 @ 15:46 by Maria L Ortiz) Hyperlipidemia (Chronic) Hypertension (Chronic) H/O coronary artery bypass surgery (Chronic ~2007) CABG x 3 STORY-LAD, SVG-RCA, SVG-Cx 2008 Atherosclerosis of coronary artery of [place] heart without angina pectoris (Chronic) CABG x 3 STORY-LAD, SVG-RCA, SVG-Cx 2008 Nonrheumatic tricuspid valve regurgitation (Chronic) Secondary pulmonary arterial hypertension (Chronic) Non-rheumatic aortic stenosis (Chronic) Ulcer of right lower extremity with fat layer exposed (Chronic) anterior lower extremity ulcer Venous insufficiency of both lower extremities (Chronic) Other specified peripheral vascular diseases (Chronic) Ulcer of left lower extremity with fat layer exposed (Chronic) Delayed wound healing (Chronic) Maceration of skin (Chronic) Type 2 diabetes mellitus with diabetic peripheral angiopathy without gangrene (Chronic) Lymphedema in adult patient (Chronic) Noncompliance with treatment regimen (Chronic) Pulmonary nodules (Chronic) Obesity (BMI 30.0-34.9) (Chronic) 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) Thrombocytopenia (Chronic) Medical History: Medical History (Last Reviewed 07/30/18 @ 15:46 by Maria L Ortiz) Hyperlipidemia (Chronic) E78.5 Hypertension (Chronic) I10 Atherosclerosis of coronary artery of [place] heart without angina pectoris (Chronic) I25.10 CABG x 3 STORY-LAD, SVG-RCA, SVG-Cx 2007 Nonrheumatic tricuspid valve regurgitation (Chronic) I36.1 Secondary pulmonary arterial hypertension (Chronic) I27.21 Non-rheumatic aortic stenosis (Chronic) I35.0 Venous insufficiency of both lower extremities (Chronic) I87.2 Type 2 diabetes mellitus with diabetic peripheral angiopathy without gangrene (Chronic) E11.51 Obesity (BMI 30.0-34.9) (Chronic) E66.9 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) E11.22, N18.3 GERD (gastroesophageal reflux disease) K21.9 Peripheral neuropathy G62.9 Allergies Penicillins Allergy (Verified 07/30/18 15:47) Rash rosiglitazone maleate [From Avandia] Allergy (Verified 07/30/18 15:47) Swelling & diarrhea simvastatin [From Zocor] Allergy (Verified 07/30/18 15:47) Muscle weakness atorvastatin calcium [From Lipitor] Adverse Reaction (Verified 07/30/18 15:47) Muscle weakness esomeprazole magnesium [From Nexium] Adverse Reaction (Verified 07/30/18 15:47) Diarrhea lansoprazole [From Prevacid] Adverse Reaction (Verified 07/30/18 15:47) Diarrhea Sulfa (Sulfonamide Antibiotics) Adverse Reaction (Verified 07/30/18 15:47) Nausea/Vom/Diarrhea from PCP office records Home Medications: Ambulatory Orders Medication Instructions Recorded Aspirin [Aspirin, Baby] 81 mg PO DAILY@0800 10/20/14 Metoprolol Tartrate [Lopressor 100 mg PO BID 10/21/14 (beta apryl)] Pantoprazole Sodium [Protonix] 40 mg PO BID 10/21/14 Rosuvastatin Calcium [Crestor] 2.5 mg PO QHS 10/21/14 Nitroglycerin [Nitrostat] 0.4 mg SUBLINGUAL Q5M PRN 11/24/14 Ergocalciferol [Vitamin D] 50,000 units PO SA 02/16/16 Niacinamide [Niacin] 500 mg PO BID 02/16/16 Montelukast Sodium [Singulair] 10 mg PO QHS 05/06/16 Ondansetron [Zofran Odt] 8 mg PO Q6H PRN PRN 03/31/17 Amlodipine [Norvasc] 5 mg PO DAILY 10/12/17 Alpha Lipoic Acid 600 mg PO QHS 01/24/18 Acetaminophen [Tylenol Tablet] 650 mg PO Q6H PRN PRN tab 01/28/18 Albuterol Aerosols [Ventolin 2.5 mg INHALATION Q2H PRN PRN 01/28/18 Aerosols] vial.neb. Cetirizine HCl [Zyrtec] 10 mg PO DAILY PRN 03/17/18 Bisacodyl [Dulcolax] 10 mg RECTAL DAILY PRN PRN 03/18/18 Guaifenesin [Robitussin] 10 ml PO Q4H PRN PRN 03/18/18 Magnesium Hydroxide [Milk Of 30 ml PO DAILY PRN PRN udc 03/20/18 Magnesia] Menthol/Lanolin/Calamine/Znox 1 applic TOPICAL TID tube 03/20/18 [Calmoseptine Ointment] Senna/Docusate Sodium [Senokot-S] 2 tab PO BID PRN tab 03/20/18 Ascorbic Acid [Vitamin C] 500 mg PO DAILY@0800 09/25/18 Clopidogrel Bisulfate [Plavix] 75 mg PO DAILY 09/25/18 Ferrous Gluconate 325 mg PO BIDCM 09/25/18 Fluticasone 0.05% [Flonase Nasal 2 spray NASAL DAILY 09/25/18 [place]] Insulin Glargine [Lantus SoloStar 38 units SC QHS 09/25/18 Pen] Insulin Lispro [Humalog KwikPen] 10 unit SQ DINNER 09/25/18 Insulin Lispro [Humalog KwikPen] 10 unit SQ LUNCH 09/25/18 Insulin Lispro [Humalog KwikPen] 12 unit SQ BREAKFAST 09/25/18 Insulin Lispro [Humalog KwikPen] See Protocol SQ ACHS 09/25/18 Isosorbide Mononitrate [Imdur] 60 mg PO DAILY 09/25/18 L. Rhamnosus GG/Inulin [Culturelle 1 each PO BID 09/25/18 Probiotics Capsule] Multivitamin with Minerals 1 each PO DAILY 09/25/18 [Multiple Vitamin] Nystatin Powder [Mycostatin Powder] 1 applic TOPICAL TID 09/25/18 Prednisone 5 mg PO DAILY 09/25/18 Surgical History: Surgical History (Last Reviewed 07/30/18 @ 15:46 by Maria L Ortiz) H/O coronary artery bypass surgery (Chronic) Onset Date: ~2007 Z95.1 CABG x 3 STORY-LAD, SVG-RCA, SVG-Cx [address] Z96.21 History of left heart catheterization Onset Date: 10/15/17 Z98.890 STORY graft to the Mid LAD is patent Saphenous Vein graft to the CIRC is totally occluded Saphenous Vein graft to the Distal RCA is patent history of right femoral bypass surgery Surgical History: coronary bypass surgery, - Psychiatric History: No pertinent psych hx [employer] History: No pertinent [employer] history Lives: Prison Smoking Status: Former smoker Tobacco Use: Non-smoker Alcohol: None Drugs: None - *Family History Sibling Family History: Family History (Last Reviewed 07/30/18 @ 15:46 by Maria L Ortiz) Other CAD (coronary artery disease) History Items: Heart Disease Maternal Family History: Family History (Last Reviewed 07/30/18 @ 15:46 by Maria L Ortiz) Other CAD (coronary artery disease) History Items: No pertinent history Paternal Family History: Family History (Last Reviewed 07/30/18 @ 15:46 by Maria L Ortiz) Other CAD (coronary artery disease) History Items: No pertinent history Review of Systems Comment: Review of systems was not obtainable due to the patient's somnolence, she does not respond to any verbal stimuli, she only responds to painful stimuli VTE Information - Inpt Only VTE Present on Admission: No VTE Mechan Device Prophylaxis: None VTE Pharm Prophylaxis ordered?: No Patient Problems: Active and Suspected Problems (Last Reviewed 07/30/18 @ 15:46 by Maria L Ortiz) Hypoxia (Acute) Change in mental status (Acute) - Physical Exam General: No apparent distress, Well developed, Well nourished, Lethargic, - - Patient only responds to deep painful stimuli, she does not respond to verbal stimuli HEENT: Atraumatic, PERRLA, Normocephalic Oral: Moist Mucosa Neck: Supple, No JVD, No Nuchal Rigidity, Trachea Midline, Thyroid Normal Size and Texture Lungs: Clear to auscultation, No rhonchi, No wheeze, No rales, Diminished Cardiovascular: Regular rate, Regular Rhythm, Normal S1, Normal S2, No murmurs, No Ectopic Activity Abdomen: Bowel Sounds Present, Soft, Non Tender, Non-Distended, No hernias noted Extremities: No clubbing, No cyanosis, Edema - Generalized edema is noted in the patient's upper and lower legs, +1-+2 mm pitting Skin: No rashes, No breakdown Musculoskeletal: No Muscle Wasting Neurological: - - Patient responds to painful stimuli only by withdrawing, she does not respond to any verbal stimuli Psych/Mental Status: - - Patient responds only to painful stimuli by withdrawing, she does not respond to any verbal stimuli Vital Signs Temp Pulse Resp BP Pulse Ox 97.3 F L 73 19 H 116/56 L 97 09/25/18 00:25 09/25/18 00:25 09/25/18 00:25 09/25/18 00:25 09/25/18 00:25 Oxygen Flow Rate (L/min) 12 Oxygen Delivery Method Bi-pap Weight: 112.1 kg Body Mass Index (BMI) 37.5 Finger Stick Blood Glucose 74 Laboratory Tests Past 24 Hrs 09/24/18 09/24/18 09/24/18 19:08 19:08 19:08 WBC 9.9 RBC 3.26 L Hgb 9.9 L Hct 34.1 L MCV 104.6 H MCH 30.4 MCHC 29.0 L RDW 17.0 H RDW Differential 62.9 H Plt Count 150 MPV 10.6 Immature Gran % (Auto) 0.200 Neut % (Auto) 93.8 H Lymph % (Auto) 3.0 L [place] % (Auto) 2.5 Eos % (Auto) 0.4 Baso % (Auto) 0.1 Absolute Neuts (auto) 9.3 H Absolute Lymphs (auto) 0.30 L Total Counted Not Reportable Differential Comment SCANNED PT 15.5 H INR 1.3 APTT 28.6 Specimen Type Sample Site pH Bicarbonate Actual POC Total CO2 Base Excess O2 Saturation ABG pCO2 ABG pO2 Ray Test O2 Delivery Device Liter Flow Blood Gas Notified Whom Sodium 146 H Potassium 6.2 H* Chloride 119 H Carbon Dioxide 22.0 Anion Gap 5 BUN 54 H Creatinine 1.86 H Estim Creat Clear Calc 29.61 Est GFR (MDRD) Af Amer 35 L Est GFR (MDRD) Non-Af 29 L BUN/Creatinine Ratio 29.0 H Glucose 72 L Lactic Acid Calcium 7.5 L Total Bilirubin 0.50 AST 26 ALT 28 Alkaline Phosphatase 130 H Ammonia Total Creatine Kinase 72 Troponin I 0.063 H Total Protein 5.3 L Albumin 2.2 L Globulin 3.1 Albumin/Globulin Ratio 0.7 L Urine Color Urine Clarity Urine pH Ur Specific [place] Urine Protein Urine Glucose (UA) Urine Ketones Urine Occult Blood Urine Nitrite Urine Bilirubin Urine Urobilinogen Ur Leukocyte Esterase Urine RBC Urine WBC Ur Squamous Epith Cells Calcium Oxalate Crystal Urine Bacteria Hyaline Casts Fine Granular Casts Urine Mucus 09/24/18 09/24/18 09/24/18 19:08 19:56 20:13 WBC RBC Hgb Hct MCV MCH MCHC RDW RDW Differential Plt Count MPV Immature Gran % (Auto) Neut % (Auto) Lymph % (Auto) [place] % (Auto) Eos % (Auto) Baso % (Auto) Absolute Neuts (auto) Absolute Lymphs (auto) Total Counted Differential Comment PT INR APTT Specimen Type ART Sample Site L Radial pH 7.22 L Bicarbonate Actual 20.1 L POC Total CO2 22 Base Excess -8 L O2 Saturation 95 ABG pCO2 49.5 H ABG pO2 91 Ray Test POS O2 Delivery Device NRB Mask Liter Flow 15.0 Blood Gas Notified Whom ED Sodium Potassium Chloride Carbon Dioxide Anion Gap BUN Creatinine Estim Creat Clear Calc Est GFR (MDRD) Af Amer Est GFR (MDRD) Non-Af BUN/Creatinine Ratio Glucose Lactic Acid 0.9 Calcium Total Bilirubin AST ALT Alkaline Phosphatase Ammonia 17.0 Total Creatine Kinase Troponin I Total Protein Albumin Globulin Albumin/Globulin Ratio Urine Color Urine Clarity Urine pH Ur Specific [place] Urine Protein Urine Glucose (UA) Urine Ketones Urine Occult Blood Urine Nitrite Urine Bilirubin Urine Urobilinogen Ur Leukocyte Esterase Urine RBC Urine WBC Ur Squamous Epith Cells Calcium Oxalate Crystal Urine Bacteria Hyaline Casts Fine Granular Casts Urine Mucus 09/24/18 09/24/18 09/24/18 20:25 22:00 23:48 WBC RBC Hgb Hct MCV MCH MCHC RDW RDW Differential Plt Count MPV Immature Gran % (Auto) Neut % (Auto) Lymph % (Auto) [place] % (Auto) Eos % (Auto) Baso % (Auto) Absolute Neuts (auto) Absolute Lymphs (auto) Total Counted Differential Comment PT INR APTT Specimen Type ART Sample Site L Radial pH 7.16 L* Bicarbonate Actual 20.0 L POC Total CO2 22 Base Excess -9 L O2 Saturation 87 L ABG pCO2 56.6 H ABG pO2 68 L Ray Test NA O2 Delivery Device Nasal Can Liter Flow 12.0 Blood Gas Notified Whom ED Sodium Potassium Chloride Carbon Dioxide Anion Gap BUN Creatinine Estim Creat Clear Calc Est GFR (MDRD) Af Amer Est GFR (MDRD) Non-Af BUN/Creatinine Ratio Glucose Lactic Acid 0.8 Calcium Total Bilirubin AST ALT Alkaline Phosphatase Ammonia Total Creatine Kinase Troponin I Total Protein Albumin Globulin Albumin/Globulin Ratio Urine Color [place] Urine Clarity Cloudy Urine pH 5.0 Ur Specific [place] 1.025 Urine Protein 500 H Urine Glucose (UA) Normal Urine Ketones 5 H Urine Occult Blood 10 H Urine Nitrite Negative Urine Bilirubin Negative Urine Urobilinogen 4 H Ur Leukocyte Esterase 25 H Urine RBC 0 SEEN Urine WBC 0-5 SEEN Ur Squamous Epith Cells 0 SEEN Calcium Oxalate Crystal RARE Urine Bacteria 0 SEEN Hyaline Casts 0-5 SEEN Fine Granular Casts 5-10 SEEN Urine Mucus 1+ POC Glucose 09/24/18 09/24/18 21:58 20:29 POC Glucose 105 74 Assessment/Plan All Active Problems (Last Reviewed 07/30/18 @ 15:46 by Maria L Ortiz) Bilateral cellulitis of lower leg (Acute) Acute on chronic respiratory failure with hypoxemia (Acute) Flu-like symptoms (Acute) Hypoxia (Acute) Change in mental status (Acute) BRBPR (bright red blood per rectum) (Resolved) C. difficile colitis (Resolved) Cholelithiasis (Resolved) Hyperkalemia (Resolved) #1 acute combined respiratory failure-patient will be transferred to the ICU, repeat blood gas will be obtained on BiPAP, pulmonary medicine will participate in her care. It appears that the patient has an order for 2-5 L O2 via nasal cannula as needed for shortness of breath. It does not appear that the patient was on continuous O2 at the [facility]. #2 metabolic encephalopathy-patient will be monitored #3 healthcare acquired pneumonia right lower lobe-patient was placed on meropen em, again she got IV Levaquin and vancomycin in the ER #4 Type 2 diabetes-blood sugars will be monitored #5 coronary artery disease #6 hyperlipidemia #7 hypertension #8 hyperkalemia-etiology unclear, BMP will be rechecked, I have decided not to give the patient any Kayexalate at this time #9 chronic kidney disease stage IV secondary to type 2 diabetes, labs will be monitored Patient's oral meds will be held at this time until she is more alert Code Visit Inpatient E&M: 57296 Init Hosp L3
[2018-09-25] MEDS: 0.9% Normal Saline 1,000 ML 100 ML IV (01:30)
[2018-09-25 04:43] LABS: Hematocrit 35.1 % (37-47); Hemoglobin 9.9 g/dl (12.0-15.0); Mean Corp Hgb Conc 28.2 g/gl (32-36); Mean Corpuscular Hgb 29.8 pg (27.0-32.0); Mean Corpuscular Volume 105.7 fL (81-99); Platelet Count 134 K/mm3 (150-450); RBC Distribution Width CV 16.6 % (11.6-14.6); RBC Distribution Width SD 62.5 fl (35.1-43.9); Red Blood Count 3.32 M/mm3 (4.2-5.4); White Blood Count 8.9 K/mm3 (4.4-11.0)
[2018-09-25 04:45] LABS: Scan Indicated on CBC? Y/N NO
[2018-09-25 04:55] LABS: Anion Gap 4 (5-15); BUN 57 mg/dL (7-18); BUN/Creat Ratio 26.5 RATIO (10-20); Calcium,Total 7.7 mg/dL (8.5-10.1); Chloride 121 mmol/L (98-107); Creatinine, Serum 2.15 mg/dL (0.55-1.02); EST Glomerular Filtration Rate 24 mL/min (>60); Est Glom Filt Rate - Afr Amer 29 mL/min (>60); Estimated Creatinine Clearance 25.61 ml/min; Glucose 114 mg/dL (74-106); Potassium 5.9 mmol/L (3.5-5.1); Sodium Level 148 mmol/L (136-145)
[2018-09-25 05:31] LABS: Allen Test POS; Base Excess -8 mmol/L (-2 to +2); Bicarbonate 19.6 mmol/L (22-26); Blood Gas Specimen Type ART; O2 Delivery Device Nasal Can; PO2 64 mmHG (75-100); SITE L Radial; SO2 87 % (95-99); Time Given 520; Total Carbon Dioxide 21 mmol/L; pH 7.23 (7.35-7.45)
[2018-09-25] MEDS: Ipratropium/Albuterol Sulfate 3 ML AMPUL.NEB INHALATION ×2 (06:45→18:53)
--- NOTE | 2018-09-25 06:51 | PCM.CON.CC ---
Reason for Consult Date of Consultation: 09/25/18 Reason for Consultation: Respiratory failure History of Present Illness: The patient is a 67-year-old female, with a history as outlined below, who presented to the emergency department on September 24 with increasing lethargy, hypoxemia and shortness of breath. The patient is a poor historian so very little history could be obtained directly from her. There is no family present at the bedside. On presentation to the emergency department, the patient was noted to have a low-grade fever but remained hemodynamically stable. She was initially documented to be saturating 76% on 4 L/min. Initial laboratory evaluation revealed no evidence of a leukocytosis. INR was normal at 1.3. Chemistry profile was notable for a sodium of 146, potassium of 6.2, chloride of 119 along with evidence of chronic kidney disease with a creatinine 1.86. Lactate was within normal limits. Troponin was elevated to 0.063. In the emergency department, the patient was noted to be responsive to tactile stimulation. She was noted to be maintaining her own airway without difficulty. She did receive calcium gluconate, insulin and D50 to treat her hyperkalemia. She was started on antimicrobial coverage for suspected healthcare associated pneumonia. Arterial blood gas on nasal cannula supplemental oxygen in the emergency department revealed acute CO2 retention. The patient was then placed on BiPAP and transferred to the medical intensive care unit for ongoing management. Past Medical History Past Medical History (Chronic Problems): Chronic Problems (Last Reviewed 07/30/18 @ 15:46 by Maria L Ortiz) Acute kidney injury superimposed on CKD (Chronic) Hyperlipidemia (Chronic) Hypertension (Chronic) H/O coronary artery bypass surgery (Chronic ~2007) CABG x 3 STORY-LAD, SVG-RCA, SVG-Cx 2008 Atherosclerosis of coronary artery of [place] heart without angina pectoris (Chronic) CABG x 3 STORY-LAD, SVG-RCA, SVG-Cx 2007 Nonrheumatic tricuspid valve regurgitation (Chronic) Secondary pulmonary arterial hypertension (Chronic) Non-rheumatic aortic stenosis (Chronic) Ulcer of right lower extremity with fat layer exposed (Chronic) anterior lower extremity ulcer Venous insufficiency of both lower extremities (Chronic) Other specified peripheral vascular diseases (Chronic) Ulcer of left lower extremity with fat layer exposed (Chronic) Delayed wound healing (Chronic) Maceration of skin (Chronic) Type 2 diabetes mellitus with diabetic peripheral angiopathy without gangrene (Chronic) Lymphedema in adult patient (Chronic) Noncompliance with treatment regimen (Chronic) Pulmonary nodules (Chronic) Obesity (BMI 30.0-34.9) (Chronic) 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) Thrombocytopenia (Chronic) Medical History: Medical History (Last Reviewed 07/30/18 @ 15:46 by Maria L Ortiz) Hyperlipidemia (Chronic) E78.5 Hypertension (Chronic) I10 Atherosclerosis of coronary artery of [place] heart without angina pectoris (Chronic) I25.10 CABG x 3 STORY-LAD, SVG-RCA, SVG-Cx 2007 Nonrheumatic tricuspid valve regurgitation (Chronic) I36.1 Secondary pulmonary arterial hypertension (Chronic) I27.21 Non-rheumatic aortic stenosis (Chronic) I35.0 Venous insufficiency of both lower extremities (Chronic) I87.2 Type 2 diabetes mellitus with diabetic peripheral angiopathy without gangrene (Chronic) E11.51 Obesity (BMI 30.0-34.9) (Chronic) E66.9 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) E11.22, N18.3 GERD (gastroesophageal reflux disease) K21.9 Peripheral neuropathy G62.9 Allergies Penicillins Allergy (Verified 07/30/18 15:47) Rash rosiglitazone maleate [From Avandia] Allergy (Verified 07/30/18 15:47) Swelling & diarrhea simvastatin [From Zocor] Allergy (Verified 07/30/18 15:47) Muscle weakness atorvastatin calcium [From Lipitor] Adverse Reaction (Verified 07/30/18 15:47) Muscle weakness esomeprazole magnesium [From Nexium] Adverse Reaction (Verified 07/30/18 15:47) Diarrhea lansoprazole [From Prevacid] Adverse Reaction (Verified 07/30/18 15:47) Diarrhea Sulfa (Sulfonamide Antibiotics) Adverse Reaction (Verified 07/30/18 15:47) Nausea/Vom/Diarrhea from PCP office records Home Medications: Ambulatory Orders Medication Instructions Recorded Aspirin [Aspirin, Baby] 81 mg PO DAILY@0800 10/20/14 Metoprolol Tartrate [Lopressor 100 mg PO BID 10/21/14 (beta apryl)] Pantoprazole Sodium [Protonix] 40 mg PO BID 10/21/14 Rosuvastatin Calcium [Crestor] 2.5 mg PO QHS 10/21/14 Nitroglycerin [Nitrostat] 0.4 mg SUBLINGUAL Q5M PRN 05/29/15 Ergocalciferol [Vitamin D] 50,000 units PO SA 02/16/16 Niacinamide [Niacin] 500 mg PO BID 02/16/16 Montelukast Sodium [Singulair] 10 mg PO QHS 05/06/16 Ondansetron [Zofran Odt] 8 mg PO Q6H PRN PRN 03/31/17 Amlodipine [Norvasc] 5 mg PO DAILY 10/12/17 Alpha Lipoic Acid 600 mg PO QHS 01/24/18 Acetaminophen [Tylenol Tablet] 650 mg PO Q6H PRN PRN tab 01/28/18 Albuterol Aerosols [Ventolin 2.5 mg INHALATION Q2H PRN PRN 01/28/18 Aerosols] vial.neb. Cetirizine HCl [Zyrtec] 10 mg PO DAILY PRN 03/17/18 Bisacodyl [Dulcolax] 10 mg RECTAL DAILY PRN PRN 03/18/18 Guaifenesin [Robitussin] 10 ml PO Q4H PRN PRN 03/18/18 Magnesium Hydroxide [Milk Of 30 ml PO DAILY PRN PRN udc 03/20/18 Magnesia] Menthol/Lanolin/Calamine/Znox 1 applic TOPICAL TID tube 03/20/18 [Calmoseptine Ointment] Senna/Docusate Sodium [Senokot-S] 2 tab PO BID PRN tab 03/20/18 Ascorbic Acid [Vitamin C] 500 mg PO DAILY@0800 09/25/18 Clopidogrel Bisulfate [Plavix] 75 mg PO DAILY 09/25/18 Ferrous Gluconate 325 mg PO BIDCM 09/25/18 Fluticasone 0.05% [Flonase Nasal 2 spray NASAL DAILY 09/25/18 [place]] Insulin Glargine [Lantus SoloStar 38 units SC QHS 09/25/18 Pen] Insulin Lispro [Humalog KwikPen] 10 unit SQ DINNER 09/25/18 Insulin Lispro [Humalog KwikPen] 10 unit SQ LUNCH 09/25/18 Insulin Lispro [Humalog KwikPen] 12 unit SQ BREAKFAST 09/25/18 Insulin Lispro [Humalog KwikPen] See Protocol SQ ACHS 03/30/19 Isosorbide Mononitrate [Imdur] 60 mg PO DAILY 09/25/18 L. Rhamnosus GG/Inulin [Culturelle 1 each PO BID 09/25/18 Probiotics Capsule] Multivitamin with Minerals 1 each PO DAILY 09/25/18 [Multiple Vitamin] Nystatin Powder [Mycostatin Powder] 1 applic TOPICAL TID 09/25/18 Prednisone 5 mg PO DAILY 09/25/18 Surgical History: Surgical History (Last Reviewed 07/30/18 @ 15:46 by Maria L Ortiz) H/O coronary artery bypass surgery (Chronic) Onset Date: ~2007 Z95.1 CABG x 3 STORY-LAD, SVG-RCA, SVG-Cx [address] Z96.21 History of left heart catheterization Onset Date: 10/15/17 Z98.890 STORY graft to the Mid LAD is patent Saphenous Vein graft to the CIRC is totally occluded Saphenous Vein graft to the Distal RCA is patent history of right femoral bypass surgery Surgical History: coronary bypass surgery, - Psychiatric History: No pertinent psych hx COFOUNDER History: No pertinent COFOUNDER history Lives: [facility] Smoking Status: Former smoker Tobacco Use: Non-smoker Alcohol: None Drugs: None - *Family History Sibling Family History: Family History (Last Reviewed 07/30/18 @ 15:46 by Maria L Ortiz) Other CAD (coronary artery disease) History Items: Heart Disease Maternal Family History: Family History (Last Reviewed 07/30/18 @ 15:46 by Maria L Ortiz) Other CAD (coronary artery disease) History Items: No pertinent history Paternal Family History: Family History (Last Reviewed 07/30/18 @ 15:46 by Maria L Ortiz) Other CAD (coronary artery disease) History Items: No pertinent history Review of Systems Constitutional: Denies: Chills, Fever, Weight Change HEENT: Denies: Head Aches, Sinus Congestion, Sinus Drainage Cardiovascular: Denies: Chest Pain Respiratory: Reports: Cough, Shortness of Breath Gastrointestinal: Reports: Abdominal Pain Genitourinary: Denies: Dysuria Musculoskeletal: Denies: Joint Pain, Joint Tenderness Skin: Denies: Rash, Wounds Neurological: Reports: Confusion Psychiatric: Denies: Anxiety, Depression, Homicidal Ideations, Suicidal Ideations Hematologic/ Lymphatic: Denies: Easy Bruising, Easy Bleeding Patient Problems: Active and Suspected Problems (Last Reviewed 07/30/18 @ 15:46 by Maria L Ortiz) Hypoxia (Acute) Change in mental status (Acute) Encephalopathy (Acute) Hyperkalemia (Acute) Objective: The patient's most recent lab work, culture data and imaging studies have all been personally reviewed. Surface echocardiogram from February 2018 revealed normal LV size and thickness with an ejection fraction of 65%. The patient did have evidence of stage I diastolic dysfunction. Right ventricular systolic pressure was estimated to be 39 mmHg. There was also evidence of moderate aortic stenosis. Pulmonary function studies last completed in January 2017 revealed evidence of a mild restrictive ventilatory impairment with a symmetric reduction in diffusing capacity. - Physical Exam General: Alert, Confused, - - Speech is difficult to understand. HEENT: Atraumatic, PERRLA, Normocephalic Oral: Dry Mucosa Neck: Supple, No Nodes, Trachea Midline Lungs: No rhonchi, No wheeze, No rales, Diminished, Tachypneic Cardiovascular: Regular rate, Regular Rhythm, Normal S1, Normal S2, Murmur Abdomen: Bowel Sounds Present, Soft, Obese Extremities: No clubbing, No cyanosis, Edema Skin: - - Bilateral lower extremity erythema Musculoskeletal: No Muscle Wasting Lymphatic: No Cervical, Supraclavicular, or Inguinal Adenopathy Neurological: - - No focal deficits Psych/Mental Status: Flat Affect Vital Signs Temp Pulse Resp BP Pulse Ox 36.2 C L 85 23 H 125/46 H 93 09/25/18 04:00 09/25/18 06:46 09/25/18 06:46 09/25/18 06:00 09/25/18 06:46 Oxygen Flow Rate (L/min) 11 Oxygen Delivery Method Nasal Cannula Weight: 247 lb 2.211 oz Body Mass Index (BMI) 37.5 Finger Stick Blood Glucose 74 Intake and Output for Last 24 Hours 09/23/18 09/24/18 09/25/18 23:59 23:59 23:59 Intake Total 502 / 502 Balance 502 / 502 Laboratory Tests Past 24 Hrs 09/24/18 09/24/18 09/24/18 19:08 19:08 19:08 WBC 9.9 RBC 3.26 L Hgb 9.9 L Hct 34.1 L MCV 104.6 H MCH 30.4 MCHC 29.0 L RDW 17.0 H RDW Differential 62.9 H Plt Count 150 MPV 10.6 Immature Gran % (Auto) 0.200 Neut % (Auto) 93.8 H Lymph % (Auto) 3.0 L Keith % (Auto) 2.5 Eos % (Auto) 0.4 Baso % (Auto) 0.1 Absolute Neuts (auto) 9.3 H Absolute Lymphs (auto) 0.30 L Total Counted Not Reportable Differential Comment SCANNED PT 15.5 H INR 1.3 APTT 28.6 Specimen Type Sample Site pH Bicarbonate Actual POC Total CO2 Base Excess O2 Saturation ABG pCO2 ABG pO2 Ray Test O2 Delivery Device Liter Flow Blood Gas Notified Whom Blood Gas Notified Time Sodium 146 H Potassium 6.2 H* Chloride 119 H Carbon Dioxide 22.0 Anion Gap 5 BUN 54 H Creatinine 1.86 H Estim Creat Clear Calc 29.61 Est GFR (MDRD) Af Amer 35 L Est GFR (MDRD) Non-Af 29 L BUN/Creatinine Ratio 29.0 H Glucose 72 L Lactic Acid Calcium 7.5 L Total Bilirubin 0.50 AST 26 ALT 28 Alkaline Phosphatase 130 H Ammonia Total Creatine Kinase 72 Troponin I 0.063 H Total Protein 5.3 L Albumin 2.2 L Globulin 3.1 Albumin/Globulin Ratio 0.7 L Urine Color Urine Clarity Urine pH Ur Specific [place] Urine Protein Urine Glucose (UA) Urine Ketones Urine Occult Blood Urine Nitrite Urine Bilirubin Urine Urobilinogen Ur Leukocyte Esterase Urine RBC Urine WBC Ur Squamous Epith Cells Calcium Oxalate Crystal Urine Bacteria Hyaline Casts Fine Granular Casts Urine Mucus 09/24/18 09/24/18 09/24/18 19:08 19:56 20:13 WBC RBC Hgb Hct MCV MCH MCHC RDW RDW Differential Plt Count MPV Immature Gran % (Auto) Neut % (Auto) Lymph % (Auto) Keith % (Auto) Eos % (Auto) Baso % (Auto) Absolute Neuts (auto) Absolute Lymphs (auto) Total Counted Differential Comment PT INR APTT Specimen Type ART Sample Site L Radial pH 7.22 L Bicarbonate Actual 20.1 L POC Total CO2 22 Base Excess -8 L O2 Saturation 95 ABG pCO2 49.5 H ABG pO2 91 Ray Test POS O2 Delivery Device NRB Mask Liter Flow 15.0 Blood Gas Notified Whom ED Blood Gas Notified Time Sodium Potassium Chloride Carbon Dioxide Anion Gap BUN Creatinine Estim Creat Clear Calc Est GFR (MDRD) Af Amer Est GFR (MDRD) Non-Af BUN/Creatinine Ratio Glucose Lactic Acid 0.9 Calcium Total Bilirubin AST ALT Alkaline Phosphatase Ammonia 17.0 Total Creatine Kinase Troponin I Total Protein Albumin Globulin Albumin/Globulin Ratio Urine Color Urine Clarity Urine pH Ur Specific [place] Urine Protein Urine Glucose (UA) Urine Ketones Urine Occult Blood Urine Nitrite Urine Bilirubin Urine Urobilinogen Ur Leukocyte Esterase Urine RBC Urine WBC Ur Squamous Epith Cells Calcium Oxalate Crystal Urine Bacteria Hyaline Casts Fine Granular Casts Urine Mucus 09/24/18 09/24/18 09/24/18 20:25 22:00 23:48 WBC RBC Hgb Hct MCV MCH MCHC RDW RDW Differential Plt Count MPV Immature Gran % (Auto) Neut % (Auto) Lymph % (Auto) Keith % (Auto) Eos % (Auto) Baso % (Auto) Absolute Neuts (auto) Absolute Lymphs (auto) Total Counted Differential Comment PT INR APTT Specimen Type ART Sample Site L Radial pH 7.16 L* Bicarbonate Actual 20.0 L POC Total CO2 22 Base Excess -9 L O2 Saturation 87 L ABG pCO2 56.6 H ABG pO2 68 L Ray Test NA O2 Delivery Device Nasal Can Liter Flow 12.0 Blood Gas Notified Whom ED MD Blood Gas Notified Time Sodium Potassium Chloride Carbon Dioxide Anion Gap BUN Creatinine Estim Creat Clear Calc Est GFR (MDRD) Af Amer Est GFR (MDRD) Non-Af BUN/Creatinine Ratio Glucose Lactic Acid 0.8 Calcium Total Bilirubin AST ALT Alkaline Phosphatase Ammonia Total Creatine Kinase Troponin I Total Protein Albumin Globulin Albumin/Globulin Ratio Urine Color [place] Urine Clarity Cloudy Urine pH 5.0 Ur Specific [place] 1.025 Urine Protein 500 H Urine Glucose (UA) Normal Urine Ketones 5 H Urine Occult Blood 10 H Urine Nitrite Negative Urine Bilirubin Negative Urine Urobilinogen 4 H Ur Leukocyte Esterase 25 H Urine RBC 0 SEEN Urine WBC 0-5 SEEN Ur Squamous Epith Cells 0 SEEN Calcium Oxalate Crystal RARE Urine Bacteria 0 SEEN Hyaline Casts 0-5 SEEN Fine Granular Casts 5-10 SEEN Urine Mucus 1+ 09/25/18 09/25/18 09/25/18 04:30 04:30 05:24 WBC 8.9 RBC 3.32 L Hgb 9.9 L Hct 35.1 L MCV 105.7 H MCH 29.8 MCHC 28.2 L RDW 16.6 H RDW Differential 62.5 H Plt Count 134 L MPV 10.0 Immature Gran % (Auto) Neut % (Auto) Lymph % (Auto) Keith % (Auto) Eos % (Auto) Baso % (Auto) Absolute Neuts (auto) Absolute Lymphs (auto) Total Counted Differential Comment PT INR APTT Specimen Type ART Sample Site L Radial pH 7.23 L Bicarbonate Actual 19.6 L POC Total CO2 21 Base Excess -8 L O2 Saturation 87 L ABG pCO2 47.0 H ABG pO2 64 L Ray Test POS O2 Delivery Device Nasal Can Liter Flow 8.0 Blood Gas Notified Whom ICU Blood Gas Notified Time 520 Sodium 148 H Potassium 5.9 H Chloride 121 H Carbon Dioxide 23.0 Anion Gap 4 L BUN 57 H Creatinine 2.15 H Estim Creat Clear Calc 25.61 Est GFR (MDRD) Af Amer 29 L Est GFR (MDRD) Non-Af 24 L BUN/Creatinine Ratio 26.5 H Glucose 114 H Lactic Acid Calcium 7.7 L Total Bilirubin AST ALT Alkaline Phosphatase Ammonia Total Creatine Kinase Troponin I Total Protein Albumin Globulin Albumin/Globulin Ratio Urine Color Urine Clarity Urine pH Ur Specific [place] Urine Protein Urine Glucose (UA) Urine Ketones Urine Occult Blood Urine Nitrite Urine Bilirubin Urine Urobilinogen Ur Leukocyte Esterase Urine RBC Urine WBC Ur Squamous Epith Cells Calcium Oxalate Crystal Urine Bacteria Hyaline Casts Fine Granular Casts Urine Mucus POC Glucose 09/24/18 09/24/18 21:58 20:29 POC Glucose 105 74 Clinical Impression(s) from Imaging Studies Chest X-Ray 09/24/18 19:55 IMPRESSION: Poor inspiration. Right lower lung field infiltrate and/or atelectasis. Increased pulmonic density also noted in the left perihilar area. These abnormalities represent new interval findings. Mild cardiomegaly. Status post sternotomy. Electronically Signed: Tristen Coronel MD at 21:35 EDT , Service support , Brain CT 09/24/18 21:48 IMPRESSION: Worsening right frontoparietal deep white matter ischemia which may be progression of old changes however new infarct cannot be excluded. MRI brain follow-up is recommended. Bilateral deep white matter old small vessel ischemic changes as well Inflammatory changes paranasal sinuses Bilateral mastoid effusions Electronically Signed: Gregory Gordon, at 23:45 EDT Tel , Service support , Assessment/Plan Active and Suspected Problems (Last Reviewed 07/30/18 @ 15:46 by Maria L Ortiz) Hypoxia (Acute) Change in mental status (Acute) Encephalopathy (Acute) Hyperkalemia (Acute) RECOMMENDATIONS: 1. Broaden antibiotics to include meropenem and vancomycin 2. Check MRSA screen, along with strep and urine Legionella antigens. 3. Check respiratory viral panel and send sputum for culture. 4. Obtain MRI head and neurology consultation. 5. Obtain CT chest without contrast. 6. Stop continuous supplemental IV fluids, as the patient has a significantly elevated BNP and history of heart failure. 7. Continue to trend troponins and obtain repeat echocardiogram IMPRESSIONS: 1. Acute hypoxemic and hypercarbic respiratory failure with concerns for underlying healthcare associated pneumonia The patient does have radiographic evidence of an underlying pulmonary infectious process. At this time, her antibiotics will be broadened to include meropenem and vancomycin. We will check MRSA screen as well. A respiratory viral panel along with strep and urine Legionella antigens will be checked. Given the questionable findings on plain film chest imaging, will obtain noncontrasted chest CT. Wean supplemental oxygen to maintain saturations at or above 90%. Given the patient's elevated troponin and BNP level, I am also concerned for potential CHF exacerbation. A repeat echocardiogram is currently pending. BiPAP can be utilized if clinically warranted. 2. Abnormal CT head Initial CT head revealed white matter ischemic changes of unclear chronicity. Therefore, neurology was consulted to assist with management. The patient is not able to undergo an MRI due to the presence of cochlear implants. Her renal function currently precludes the ability to undergo CTA. Therefore, there are plans for the patient to undergo a repeat CT head in the morning. She does not currently have any demonstratable focal neurological deficits. 3. Encephalopathy Likely metabolic in nature. Although will await neurological evaluation, given the findings noted on CT head. Avoid sedating medications. Recheck arterial blood gas, if the patient becomes more somnolent. 4. Troponin elevation/underlying heart failure with preserved ejection fraction/aortic valve stenosis/coronary artery disease Likely secondary to demand ischemia in the setting of #1. We will plan to obtain a repeat echocardiogram. Check BNP as well. Cautious use of supplemental IV fluids, given valvular stenosis and diastolic dysfunction. 5. Acute on chronic kidney disease/hyperkalemia Nephrology consultation is currently pending. No current indication for renal replacement therapy. Continue medical management of the patient's elevated potassium level. 6. Obesity/hyperlipidemia/hypertension/diabetes/lower extremity cellulitis Complicates care, management, recovery and prognosis. Patient to remain n.p.o. for now, given tenuous clinical status. This note was generated with [employer] dictation software. It may contain incorrect words, spelling, and punctuation that were not noted in checking the note before signing. Code Visit Inpatient E&M: 06359 Init Hosp L3
--- NOTE | 2018-09-25 06:57 | CON.PCM_ITS ---
Reason for Consult Date of Consultation: 09/25/18 Reason for Consultation: Respiratory failure History of Present Illness: The patient is a 67-year-old female, with a history as outlined below, who presented to the emergency department on September 24 with increasing lethargy, hypoxemia and shortness of breath. The patient is a poor historian so very little history could be obtained directly from her. There is no family present at the bedside. On presentation to the emergency department, the patient was noted to have a low-grade fever but remained hemodynamically stable. She was initially documented to be saturating 76% on 4 L/min. Initial laboratory evaluation revealed no evidence of a leukocytosis. INR was normal at 1.3. Chemistry profile was notable for a sodium of 146, potassium of 6.2, chloride of 119 along with evidence of chronic kidney disease with a creatinine 1.86. Lactate was within normal limits. Troponin was elevated to 0.063. In the emergency department, the patient was noted to be responsive to tactile stimulation. She was noted to be maintaining her own airway without difficulty. She did receive calcium gluconate, insulin and D50 to treat her hyperkalemia. She was started on antimicrobial coverage for suspected healthcare associated pneumonia. Arteria l blood gas on nasal cannula supplemental oxygen in the emergency department revealed acute CO2 retention. The patient was then placed on BiPAP and transferred to the medical intensive care unit for ongoing management. Past Medical History Past Medical History (Chronic Problems): Chronic Problems (Last Reviewed 07/30/18 @ 15:46 by Maria L Ortiz) Acute kidney injury superimposed on CKD (Chronic) Hyperlipidemia (Chronic) Hypertension (Chronic) H/O coronary artery bypass surgery (Chronic ~2007) CABG x 3 STORY-LAD, SVG-RCA, SVG-Cx 2008 Atherosclerosis of coronary artery of [place] heart without angina pectoris (Chronic) CABG x 3 STORY-LAD, SVG-RCA, SVG-Cx 2007 Nonrheumatic tricuspid valve regurgitation (Chronic) Secondary pulmonary arterial hypertension (Chronic) Non-rheumatic aortic stenosis (Chronic) Ulcer of right lower extremity with fat layer exposed (Chronic) anterior lower extremity ulcer Venous insufficiency of both lower extremities (Chronic) Other specified peripheral vascular diseases (Chronic) Ulcer of left lower extremity with fat layer exposed (Chronic) Delayed wound healing (Chronic) Maceration of skin (Chronic) Type 2 diabetes mellitus with diabetic peripheral angiopathy without gangrene (Chronic) Lymphedema in adult patient (Chronic) Noncompliance with treatment regimen (Chronic) Pulmonary nodules (Chronic) Obesity (BMI 30.0-34.9) (Chronic) 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) Thrombocytopenia (Chronic) Medical History: Medical History (Last Reviewed 07/30/18 @ 15:46 by Maria L Ortiz) Hyperlipidemia (Chronic) E78.5 Hypertension (Chronic) I10 Atherosclerosis of coronary artery of [place] heart without angina pectoris (Chronic) I25.10 CABG x 3 STORY-LAD, SVG-RCA, SVG-Cx 2007 Nonrheumatic tricuspid valve regurgitation (Chronic) I36.1 Secondary pulmonary arterial hypertension (Chronic) I27.21 Non-rheumatic aortic stenosis (Chronic) I35.0 Venous insufficiency of both lower extremities (Chronic) I87.2 Type 2 diabetes mellitus with diabetic peripheral angiopathy without gangrene (Chronic) E11.51 Obesity (BMI 30.0-34.9) (Chronic) E66.9 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) E11.22, N18.3 GERD (gastroesophageal reflux disease) K21.9 Peripheral neuropathy G62.9 Allergies Penicillins Allergy (Verified 07/30/18 15:47) Rash rosiglitazone maleate [From Avandia] Allergy (Verified 07/30/18 15:47) Swelling & diarrhea simvastatin [From Zocor] Allergy (Verified 07/30/18 15:47) Muscle weakness atorvastatin calcium [From Lipitor] Adverse Reaction (Verified 07/30/18 15:47) Muscle weakness esomeprazole magnesium [From Nexium] Adverse Reaction (Verified 07/30/18 15:47) Diarrhea lansoprazole [From Prevacid] Adverse Reaction (Verified 07/30/18 15:47) Diarrhea Sulfa (Sulfonamide Antibiotics) Adverse Reaction (Verified 07/30/18 15:47) Nausea/Vom/Diarrhea from PCP office records Home Medications: Ambulatory Orders Medication Instructions Recorded Aspirin [Aspirin, Baby] 81 mg PO DAILY@0800 10/20/14 Metoprolol Tartrate [Lopressor 100 mg PO BID 10/21/14 (beta apryl)] Pantoprazole Sodium [Protonix] 40 mg PO BID 10/21/14 Rosuvastatin Calcium [Crestor] 2.5 mg PO QHS 10/21/14 Nitroglycerin [Nitrostat] 0.4 mg SUBLINGUAL Q5M PRN 11/24/14 Ergocalciferol [Vitamin D] 50,000 units PO SA 02/16/16 Niacinamide [Niacin] 500 mg PO BID 02/16/16 Montelukast Sodium [Singulair] 10 mg PO QHS 05/06/16 Ondansetron [Zofran Odt] 8 mg PO Q6H PRN PRN 03/31/17 Amlodipine [Norvasc] 5 mg PO DAILY 10/12/17 Alpha Lipoic Acid 600 mg PO QHS 01/24/18 Acetaminophen [Tylenol Tablet] 650 mg PO Q6H PRN PRN tab 01/28/18 Albuterol Aerosols [Ventolin 2.5 mg INHALATION Q2H PRN PRN 01/28/18 Aerosols] vial.neb. Cetirizine HCl [Zyrtec] 10 mg PO DAILY PRN 03/17/18 Bisacodyl [Dulcolax] 10 mg RECTAL DAILY PRN PRN 03/18/18 Guaifenesin [Robitussin] 10 ml PO Q4H PRN PRN 03/18/18 Magnesium Hydroxide [Milk Of 30 ml PO DAILY PRN PRN udc 03/20/18 Magnesia] Menthol/Lanolin/Calamine/Znox 1 applic TOPICAL TID tube 03/20/18 [Calmoseptine Ointment] Senna/Docusate Sodium [Senokot-S] 2 tab PO BID PRN tab 03/20/18 Ascorbic Acid [Vitamin C] 500 mg PO DAILY@0800 09/25/18 Clopidogrel Bisulfate [Plavix] 75 mg PO DAILY 09/25/18 Ferrous Gluconate 325 mg PO BIDCM 09/25/18 Fluticasone 0.05% [Flonase Nasal 2 spray NASAL DAILY 09/25/18 [place]] Insulin Glargine [Lantus SoloStar 38 units SC QHS 09/25/18 Pen] Insulin Lispro [Humalog KwikPen] 10 unit SQ DINNER 09/25/18 Insulin Lispro [Humalog KwikPen] 10 unit SQ LUNCH 09/25/18 Insulin Lispro [Humalog KwikPen] 12 unit SQ BREAKFAST 09/25/18 Insulin Lispro [Humalog KwikPen] See Protocol SQ ACHS 09/25/18 Isosorbide Mononitrate [Imdur] 60 mg PO DAILY 09/25/18 L. Rhamnosus GG/Inulin [Culturelle 1 each PO BID 09/25/18 Probiotics Capsule] Multivitamin with Minerals 1 each PO DAILY 09/25/18 [Multiple Vitamin] Nystatin Powder [Mycostatin Powder] 1 applic TOPICAL TID 09/25/18 Prednisone 5 mg PO DAILY 09/25/18 Surgical History: Surgical History (Last Reviewed 07/30/18 @ 15:46 by Maria L Ortiz) H/O coronary artery bypass surgery (Chronic) Onset Date: ~2007 Z95.1 CABG x 3 STORY-LAD, SVG-RCA, SVG-Cx [address] Z96.21 History of left heart catheterization Onset Date: 10/15/17 Z98.890 STORY graft to the Mid LAD is patent Saphenous Vein graft to the CIRC is totally occluded Saphenous Vein graft to the Distal RCA is patent history of right femoral bypass surgery Surgical History: coronary bypass surgery, - Psychiatric History: No pertinent psych hx 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 HEALTH AIDE History: No pertinent 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 HEALTH AIDE history Lives: [facility] Smoking Status: Former smoker Tobacco Use: Non-smoker Alcohol: None Drugs: None - *Family History Sibling Family History: Family History (Last Reviewed 07/30/18 @ 15:46 by Maria L Ortiz) Other CAD (coronary artery disease) History Items: Heart Disease Maternal Family History: Family History (Last Reviewed 07/30/18 @ 15:46 by Maria L Ortiz) Other CAD (coronary artery disease) History Items: No pertinent history Paternal Family History: Family History (Last Reviewed 07/30/18 @ 15:46 by Maria L Ortiz) Other CAD (coronary artery disease) History Items: No pertinent history Review of Systems Constitutional: Denies: Chills, Fever, Weight Change HEENT: Denies: Head Aches, Sinus Congestion, Sinus Drainage Cardiovascular: Denies: Chest Pain Respiratory: Reports: Cough, Shortness of Breath Gastrointestinal: Reports: Abdominal Pain Genitourinary: Denies: Dysuria Musculoskeletal: Denies: Joint Pain, Joint Tenderness Skin: Denies: Rash, Wounds Neurological: Reports: Confusion Psychiatric: Denies: Anxiety, Depression, Homicidal Ideations, Suicidal Ideations Hematologic/ Lymphatic: Denies: Easy Bruising, Easy Bleeding Patient Problems: Active and Suspected Problems (Last Reviewed 07/30/18 @ 15:46 by Maria L Ortiz) Hypoxia (Acute) Change in mental status (Acute) Encephalopathy (Acute) Hyperkalemia (Acute) Objective: The patient's most recent lab work, culture data and imaging studies have all been personally reviewed. Surface echocardiogram from February 2018 revealed normal LV size and thickness with an ejection fraction of 65%. The patient did have evidence of stage I diastolic dysfunction. Right ventricular systolic pressure was estimated to be 39 mmHg. There was also evidence of moderate aort ic stenosis. Pulmonary function studies last completed in January 2017 revealed evidence of a mild restrictive ventilatory impairment with a symmetric reduction in diffusing capacity. - Physical Exam General: Alert, Confused, - - Speech is difficult to understand. HEENT: Atraumatic, PERRLA, Normocephalic Oral: Dry Mucosa Neck: Supple, No Nodes, Trachea Midline Lungs: No rhonchi, No wheeze, No rales, Diminished, Tachypneic Cardiovascular: Regular rate, Regular Rhythm, Normal S1, Normal S2, Murmur Abdomen: Bowel Sounds Present, Soft, Obese Extremities: No clubbing, No cyanosis, Edema Skin: - - Bilateral lower extremity erythema Musculoskeletal: No Muscle Wasting Lymphatic: No Cervical, Supraclavicular, or Inguinal Adenopathy Neurological: - - No focal deficits Psych/Mental Status: Flat Affect Vital Signs Temp Pulse Resp BP Pulse Ox 36.2 C L 85 23 H 125/46 H 93 09/25/18 04:00 09/25/18 06:46 09/25/18 06:46 09/25/18 06:00 09/25/18 06:46 Oxygen Flow Rate (L/min) 11 Oxygen Delivery Method Nasal Cannula Weight: 247 lb 2.211 oz Body Mass Index (BMI) 37.5 Finger Stick Blood Glucose 74 Intake and Output for Last 24 Hours 09/23/18 09/24/18 09/25/18 23:59 23:59 23:59 Intake Total 502 / 502 Balance 502 / 502 Laboratory Tests Past 24 Hrs 09/24/18 09/24/18 09/24/18 19:08 19:08 19:08 WBC 9.9 RBC 3.26 L Hgb 9.9 L Hct 34.1 L MCV 104.6 H MCH 30.4 MCHC 29.0 L RDW 17.0 H RDW Differential 62.9 H Plt Count 150 MPV 10.6 Immature Gran % (Auto) 0.200 Neut % (Auto) 93.8 H Lymph % (Auto) 3.0 L Gaines % (Auto) 2.5 Eos % (Auto) 0.4 Baso % (Auto) 0.1 Absolute Neuts (auto) 9.3 H Absolute Lymphs (auto) 0.30 L Total Counted Not Reportable Differential Comment SCANNED PT 15.5 H INR 1.3 APTT 28.6 Specimen Type Sample Site pH Bicarbonate Actual POC Total CO2 Base Excess O2 Saturation ABG pCO2 ABG pO2 Ray Test O2 Delivery Device Liter Flow Blood Gas Notified Whom Blood Gas Notified Time Sodium 146 H Potassium 6.2 H* Chloride 119 H Carbon Dioxide 22.0 Anion Gap 5 BUN 54 H Creatinine 1.86 H Estim Creat Clear Calc 29.61 Est GFR (MDRD) Af Amer 35 L Est GFR (MDRD) Non-Af 29 L BUN/Creatinine Ratio 29.0 H Glucose 72 L Lactic Acid Calcium 7.5 L Total Bilirubin 0.50 AST 26 ALT 28 Alkaline Phosphatase 130 H Ammonia Total Creatine Kinase 72 Troponin I 0.063 H Total Protein 5.3 L Albumin 2.2 L Globulin 3.1 Albumin/Globulin Ratio 0.7 L Urine Color Urine Clarity Urine pH Ur Specific [place] Urine Protein Urine Glucose (UA) Urine Ketones Urine Occult Blood Urine Nitrite Urine Bilirubin Urine Urobilinogen Ur Leukocyte Esterase Urine RBC Urine WBC Ur Squamous Epith Cells Calcium Oxalate Crystal Urine Bacteria Hyaline Casts Fine Granular Casts Urine Mucus 09/24/18 09/24/18 09/24/18 19:08 19:56 20:13 WBC RBC Hgb Hct MCV MCH MCHC RDW RDW Differential Plt Count MPV Immature Gran % (Auto) Neut % (Auto) Lymph % (Auto) Gaines % (Auto) Eos % (Auto) Baso % (Auto) Absolute Neuts (auto) Absolute Lymphs (auto) Total Counted Differential Comment PT INR APTT Specimen Type ART Sample Site L Radial pH 7.22 L Bicarbonate Actual 20.1 L POC Total CO2 22 Base Excess -8 L O2 Saturation 95 ABG pCO2 49.5 H ABG pO2 91 Ray Test POS O2 Delivery Device NRB Mask Liter Flow 15.0 Blood Gas Notified Whom ED Blood Gas Notified Time Sodium Potassium Chloride Carbon Dioxide Anion Gap BUN Creatinine Estim Creat Clear Calc Est GFR (MDRD) Af Amer Est GFR (MDRD) Non-Af BUN/Creatinine Ratio Glucose Lactic Acid 0.9 Calcium Total Bilirubin AST ALT Alkaline Phosphatase Ammonia 17.0 Total Creatine Kinase Troponin I Total Protein Albumin Globulin Albumin/Globulin Ratio Urine Color Urine Clarity Urine pH Ur Specific [place] Urine Protein Urine Glucose (UA) Urine Ketones Urine Occult Blood Urine Nitrite Urine Bilirubin Urine Urobilinogen Ur Leukocyte Esterase Urine RBC Urine WBC Ur Squamous Epith Cells Calcium Oxalate Crystal Urine Bacteria Hyaline Casts Fine Granular Casts Urine Mucus 09/24/18 09/24/18 09/24/18 20:25 22:00 23:48 WBC RBC Hgb Hct MCV MCH MCHC RDW RDW Differential Plt Count MPV Immature Gran % (Auto) Neut % (Auto) Lymph % (Auto) Gaines % (Auto) Eos % (Auto) Baso % (Auto) Absolute Neuts (auto) Absolute Lymphs (auto) Total Counted Differential Comment PT INR APTT Specimen Type ART Sample Site L Radial pH 7.16 L* Bicarbonate Actual 20.0 L POC Total CO2 22 Base Excess -9 L O2 Saturation 87 L ABG pCO2 56.6 H ABG pO2 68 L Ray Test NA O2 Delivery Device Nasal Can Liter Flow 12.0 Blood Gas Notified Whom ED Blood Gas Notified Time Sodium Potassium Chloride Carbon Dioxide Anion Gap BUN Creatinine Estim Creat Clear Calc Est GFR (MDRD) Af Amer Est GFR (MDRD) Non-Af BUN/Creatinine Ratio Glucose Lactic Acid 0.8 Calcium Total Bilirubin AST ALT Alkaline Phosphatase Ammonia Total Creatine Kinase Troponin I Total Protein Albumin Globulin Albumin/Globulin Ratio Urine Color Kenisha Urine Clarity Cloudy Urine pH 5.0 Ur Specific [place] 1.025 Urine Protein 500 H Urine Glucose (UA) Normal Urine Ketones 5 H Urine Occult Blood 10 H Urine Nitrite Negative Urine Bilirubin Negative Urine Urobilinogen 4 H Ur Leukocyte Esterase 25 H Urine RBC 0 SEEN Urine WBC 0-5 SEEN Ur Squamous Epith Cells 0 SEEN Calcium Oxalate Crystal RARE Urine Bacteria 0 SEEN Hyaline Casts 0-5 SEEN Fine Granular Casts 5-10 SEEN Urine Mucus 1+ 09/25/18 09/25/18 09/25/18 04:30 04:30 05:24 WBC 8.9 RBC 3.32 L Hgb 9.9 L Hct 35.1 L MCV 105.7 H MCH 29.8 MCHC 28.2 L RDW 16.6 H RDW Differential 62.5 H Plt Count 134 L MPV 10.0 Immature Gran % (Auto) Neut % (Auto) Lymph % (Auto) Gaines % (Auto) Eos % (Auto) Baso % (Auto) Absolute Neuts (auto) Absolute Lymphs (auto) Total Counted Differential Comment PT INR APTT Specimen Type ART Sample Site L Radial pH 7.23 L Bicarbonate Actual 19.6 L POC Total CO2 21 Base Excess -8 L O2 Saturation 87 L ABG pCO2 47.0 H ABG pO2 64 L Ray Test POS O2 Delivery Device Nasal Can Liter Flow 8.0 Blood Gas Notified Whom ICU Blood Gas Notified Time 520 Sodium 148 H Potassium 5.9 H Chloride 121 H Carbon Dioxide 23.0 Anion Gap 4 L BUN 57 H Creatinine 2.15 H Estim Creat Clear Calc 25.61 Est GFR (MDRD) Af Amer 29 L Est GFR (MDRD) Non-Af 24 L BUN/Creatinine Ratio 26.5 H Glucose 114 H Lactic Acid Calcium 7.7 L Total Bilirubin AST ALT Alkaline Phosphatase Ammonia Total Creatine Kinase Troponin I Total Protein Albumin Globulin Albumin/Globulin Ratio Urine Color Urine Clarity Urine pH Ur Specific [place] Urine Protein Urine Glucose (UA) Urine Ketones Urine Occult Blood Urine Nitrite Urine Bilirubin Urine Urobilinogen Ur Leukocyte Esterase Urine RBC Urine WBC Ur Squamous Epith Cells Calcium Oxalate Crystal Urine Bacteria Hyaline Casts Fine Granular Casts Urine Mucus POC Glucose 09/24/18 09/24/18 21:58 20:29 POC Glucose 105 74 Clinical Impression(s) from Imaging Studies Chest X-Ray 09/24/18 19:55 IMPRESSION: Poor inspiration. Right lower lung field infiltrate and/or atelectasis. Increased pulmonic density also noted in the left perihilar area. These abnormalities represent new interval findings. Mild cardiomegaly. Status post sternotomy. Electronically Signed: Tristen Coronel MD at 21:35 EDT , Service support , Brain CT 09/24/18 21:48 IMPRESSION: Worsening right frontoparietal deep white matter ischemia which may be progression of old changes however new infarct cannot be excluded. MRI brain follow-up is recommended. Bilateral deep white matter old small vessel ischemic changes as well Inflammatory changes paranasal sinuses Bilateral mastoid effusions Electronically Signed: Gregory Gordon, at 23:45 EDT Tel , Service support , Assessment/Plan Active and Suspected Problems (Last Reviewed 07/30/18 @ 15:46 by Maria L Ortiz) Hypoxia (Acute) Change in mental status (Acute) Encephalopathy (Acute) Hyperkalemia (Acute) RECOMMENDATIONS: 1. Broaden antibiotics to include meropenem and vancomycin 2. Check MRSA screen, along with strep and urine Legionella antigens. 3. Check respiratory viral panel and send sputum for culture. 4. Obtain MRI head and neurology consultation. 5. Obtain CT chest without contrast. 6. Stop continuous supplemental IV fluids, as the patient has a significantly elevated BNP and history of heart failure. 7. Continue to trend troponins and obtain repeat echocardiogram IMPRESSIONS: 1. Acute hypoxemic and hypercarbic respiratory failure with concerns for underlying healthcare associated pneumonia The patient does have radiographic evidence of an underlying pulmonary infectious process. At this time, her antibiotics will be broadened to include meropenem and vancomycin. We will check MRSA screen as well. A respiratory viral panel along with strep and urine Legionella antigens will be checked. Given the questionable findings on plain film chest imaging, will obtain noncontrasted chest CT. Wean supplemental oxygen to maintain saturations at or above 90%. Given the patient's elevated troponin and BNP level, I am also concerned for potential CHF exacerbation. A repeat echocardiogram is currently pending. BiPAP can be utilized if clinically warranted. 2. Abnormal CT head Initial CT head revealed white matter ischemic changes of unclear chronicity. Therefore, neurology was consulted to assist with management. The patient is not able to undergo an MRI due to the presence of cochlear implants. Her renal function currently precludes the ability to undergo CTA. Therefore, there are plans for the patient to undergo a repeat CT head in the morning. She does not currently have any demonstratable focal neurological deficits. 3. Encephalopathy Likely metabolic in nature. Although will await neurological evaluation, given the findings noted on CT head. Avoid sedating medications. Recheck arterial blood gas, if the patient becomes more somnolent. 4. Troponin elevation/underlying heart failure with preserved ejection fraction/aortic valve stenosis/coronary artery disease Likely secondary to demand ischemia in the setting of #1. We will plan to obtain a repeat echocardiogram. Check BNP as well. Cautious use of supplemental IV fluids, given valvular stenosis and diastolic dysfunction. 5. Acute on chronic kidney disease/hyperkalemia Nephrology consultation is currently pending. No current indication for renal replacement therapy. Continue medical management of the patient's elevated potassium level. 6. Obesity/hyperlipidemia/hypertension/diabetes/lower extremity cellulitis Complicates care, management, recovery and prognosis. Patient to remain n.p.o. for now, given tenuous clinical status. This note was generated with [employer] dictation software. It may contain incorrect words, spelling, and punctuation that were not noted in checking the note before signing. Code Visit Inpatient E&M: 82672 Init Hosp L3
--- NOTE | 2018-09-25 07:19 | PN_ITS ---
Patient Problems: Active and Suspected Problems (Last Reviewed 07/30/18 @ 15:46 by Maria L Ortiz) Hypoxia (Acute) Change in mental status (Acute) Encephalopathy (Acute) Subjective: Patient is awake alert x3. She was admitted yesterday for hypoxia, confusion and altered mental status from SNF. Chest x-ray shows right lower lobe i nfiltrate/atelectasis. Increased density in the left perihilar area. Patient has has bilateral lower leg cellulitis T-max 100.1 Fahrenheit last night. BNP elevated. Lactic acid normal Vitals/I&O's: Vital Signs Temp Pulse Resp BP Pulse Ox 97.5 F L 101 H 30 H 74/55 L 96 09/25/18 07:00 09/25/18 07:00 09/25/18 07:00 09/25/18 07:00 09/25/18 07:00 Oxygen Flow Rate (L/min) 11 Oxygen Delivery Method Bi-pap Weight: 247 lb 2.211 oz Body Mass Index (BMI) 37.5 Finger Stick Blood Glucose 74 Intake and Output for Last 24 Hours 09/23/18 09/24/18 09/25/18 23:59 23:59 23:59 Intake Total 502 / 502 Balance 502 / 502 General: Alert, Oriented x3, Cooperative HEENT: Atraumatic, PERRLA, EOMI, Normocephalic Oral: Dry Mucosa Neck: Supple, No JVD, Negative Carotid Bruits Lungs: Diminished - Air entry is diminished., Rales, Short of Breath - Mild short of breath Cardiovascular: Regular rate, Regular Rhythm, Normal S1, Normal S2, No murmurs Abdomen: Bowel Sounds Present, Soft, Non Tender, Non-Distended, No Hepato- splenomegaly Extremities: Capillary Refill Less than 3 Seconds, Edema - Bilateral lower extremity edema. Skin: Ulcer/ Wound - Superficial skin breakdown/ulcer on lower legs possibly secondary to edema Musculoskeletal: No Tenderness to Palpation of Joints or Extremities Neurological: Cranial nerves II-XII grossly intact Psych/Mental Status: Normal Affect, Appropriate Laboratory Results 09/24/18 19:08: WBC 9.9, RBC 3.26 L, Hgb 9.9 L, Hct 34.1 L, MCV 104.6 H, MCH 30.4, MCHC 29.0 L, RDW 17.0 H, RDW Differential 62.9 H, Plt Count 150, MPV 10.6, Immature Gran % (Auto) 0.200, Neut % (Auto) 93.8 H, Lymph % (Auto) 3.0 L, Hill % (Auto) 2.5, Eos % (Auto) 0.4, Baso % (Auto) 0.1, Absolute Neuts (auto) 9.3 H, Absolute Lymphs (auto) 0.30 L, Total Counted Not Reportable, Differential Comment SCANNED 09/24/18 19:08: PT 15.5 H, INR 1.3, APTT 28.6 09/24/18 19:08: Sodium 146 H, Potassium 6.2 H*, Chloride 119 H, Carbon Dioxide 22.0, Anion Gap 5, BUN 54 H, Creatinine 1.86 H, Estim Creat Clear Calc 29.61, Est GFR (MDRD) Af Amer 35 L, Est GFR (MDRD) Non-Af 29 L, BUN/Creatinine Ratio 29.0 H, Glucose 72 L, Calcium 7.5 L, Total Bilirubin 0.50, AST 26, ALT 28, Alkaline Phosphatase 130 H, Total Creatine Kinase 72, Troponin I 0.063 H, Total Protein 5.3 L, Albumin 2.2 L, Globulin 3.1, Albumin/Globulin Ratio 0.7 L 09/24/18 19:08: Lactic Acid 0.9 09/24/18 19:56: Ammonia 17.0 09/24/18 20:13: Specimen Type ART, Sample Site L Radial, pH 7.22 L, Bicarbonate Actual 20.1 L, POC Total CO2 22, Base Excess -8 L, O2 Saturation 95, ABG pCO2 49.5 H, ABG pO2 91, Ray Test POS, O2 Delivery Device NRB Mask, Liter Flow 15.0, Blood Gas Notified Whom ED 09/24/18 20:25: Urine Color Kenisha, Urine Clarity Cloudy, Urine pH 5.0, Ur Specific Black 1.025, Urine Protein 500 H, Urine Glucose (UA) Normal, Urine Ketones 5 H, Urine Occult Blood 10 H, Urine Nitrite Negative, Urine Bilirubin Negative, Urine Urobilinogen 4 H, Ur Leukocyte Esterase 25 H, Urine RBC 0 SEEN, Urine WBC 0-5 SEEN, Ur Squamous Epith Cells 0 SEEN, Calcium Oxalate Crystal RARE, Urine Bacteria 0 SEEN, Hyaline Casts 0-5 SEEN, Fine Granular Casts 5-10 SEEN, Urine Mucus 1+ 09/24/18 20:29: POC Glucose 74 09/24/18 21:58: POC Glucose 105 09/24/18 22:00: Lactic Acid 0.8 09/24/18 23:48: Specimen Type ART, Sample Site L Radial, pH 7.16 L*, Bicarbonate Actual 20.0 L, POC Total CO2 22, Base Excess -9 L, O2 Saturation 87 L, ABG pCO2 56.6 H, ABG pO2 68 L, Ray Test NA, O2 Delivery Device Nasal Can, Liter Flow 12.0, Blood Gas Notified Whom ED 09/25/18 04:30: WBC 8.9, RBC 3.32 L, Hgb 9.9 L, Hct 35.1 L, MCV 105.7 H, MCH 29.8, MCHC 28.2 L, RDW 16.6 H, RDW Differential 62.5 H, Plt Count 134 L, MPV 10.0 09/25/18 04:30: Sodium 148 H, Potassium 5.9 H, Chloride 121 H, Carbon Dioxide 23.0, Anion Gap 4 L, BUN 57 H, Creatinine 2.15 H, Estim Creat Clear Calc 25.61, Est GFR (MDRD) Af Amer 29 L, Est GFR (MDRD) Non-Af 24 L, BUN/Creatinine Ratio 26.5 H, Glucose 114 H, Calcium 7.7 L 09/25/18 04:30: B-Natriuretic Peptide Pending 09/25/18 05:24: Specimen Type ART, Sample Site L Radial, pH 7.23 L, Bicarbonate Actual 19.6 L, POC Total CO2 21, Base Excess -8 L, O2 Saturation 87 L, ABG pCO2 47.0 H, ABG pO2 64 L, Ray Test POS, O2 Delivery Device Nasal Can, Liter Flow 8.0, Blood Gas Notified Whom ICU MD, Blood Gas Notified Time 520 Current Medications Albuterol/Ipratropium (Duoneb) 3 ml INHALATION Q6H.RT DIANELYS Last Admin: 09/25/18 06:45 Dose: 3 ml Enoxaparin Sodium (Lovenox) 30 mg SC DAILY@1000 DIANELYS Sodium Chloride () 1,000 mls @ 100 mls/hr IV .Q10H DIANELYS Last Admin: 09/25/18 01:30 Dose: 100 mls/hr Meropenem 1 gm/ Sodium (Chloride) 120 mls @ 33 mls/hr IV Q12 DIANELYS Sodium Chloride () 250 mls @ 15 mls/hr IV .[id number] PRN PRN Reason: SALINE FLUSH Sodium Chloride () 5 - 15 ml IV UD PRN PRN Reason: SALINE FLUSH Medical Necessity - Tobacco Use Smoking Status: Former smoker Tobacco Use: Non-smoker Assessment/Plan All Active Problems (Last Reviewed 07/30/18 @ 15:46 by Maria L Ortiz) Bilateral cellulitis of lower leg (Acute) Acute on chronic respiratory failure with hypoxemia (Acute) Flu-like symptoms (Acute) Hypoxia (Acute) Change in mental status (Acute) Encephalopathy (Acute) BRBPR (bright red blood per rectum) (Resolved) C. difficile colitis (Resolved) Cholelithiasis (Resolved) Hyperkalemia (Resolved) There is a 67-year-old female was admitted from SNF for hypoxia, change in mental status, confusion and disorientation. She was found to have 66% on room air in SNF and 71% on 4 L oxygen was given aerosol treatment and pulse ox was 96%. She was vaguely responsive to painful stimuli SNF. Patient was put on BiPAP and was further admitted in ICU #1 acute hypoxic and hypercarbic combined respiratory failure-patient is being admitted in ICU. Package Lift Operator was consulted. Initial ABG reported pH 7.16, PCO2 57/PO2 68 on 12 L of oxygen. Repeat ABG on 09/25 is better, 7.23/40 7/64 on 8 L of oxygen. Continue oxygen support and BiPAP if needed. It seems patient was not on oxygen in correction. #2 acute metabolic/infectious encephalopathy-much improved. Patient was seen by neurologist. CT head showed worsening of white matter changes but as per neurologist no change from previous CT head. Advised CT head without contrast after 24 hours. Patient cannot have MRI brain secondary to cochlear implant. No focal symptoms to suggest stroke. #3 healthcare acquired pneumonia right lower lobe-continue on meropenem and vancomycin. Urinary antigens are negative. Respiratory panel negative. MRSA nasal screen is positive therefore continue vancomycin. #4 Type 2 diabetes-on Accu-Cheks and cover with NovoLog sliding scale. #5 coronary artery disease status post three-vessel CABG in 2007. Patient had repeat heart cath in September 2017 reported as saphenous vein graft to circumflex is totally occluded but STORY to mid LAD and saphenous vein graft to distal RCA patent. History of right femoral bypass surgery. Acute on chronic heart failure with preserved EF suggestive of diastolic heart failure and valvular heart disease with secondary pulmonary hypertension: Echo done on 09/25 reported EF 65% with no regional wall motion abnormality. Left atrium mildly enlarged. Normal right atrium normal RV size systolic function. Mild mitral valve stenosis. Moderate 2+ TR, RVSP 94 mmHg cystoscopy secondary pulmonary hypertension. Moderate to severe aortic valve stenosis. 1-2+ OR. IV fluid is discontinued. Will need gentle diuresis if blood pressure and kidney function permits. Intermittent troponin mainly from heart failure and demand ischemia. Patient does not have chest pain. Peripheral arterial disease: Arterial study on June 2018 reported as calcification of vessel ortiz in ankle. Mild peripheral arterial disease reported Acute kidney injury on CKD stage III: Patient baseline creatinine runs around 1.6-1.8 with gradual worsening from 2017. BUN/creatinine 57/2.15. #6 hyperlipidemia #7 hypertension #8 hyperkalemia-etiology unclear, BMP will be rechecked, I have decided not to give the patient any Kayexalate at this time. Repeat K is 5.9 #9 chronic kidney disease stage IV secondary to type 2 diabetes, labs will be monitored Microbiology Past 72 Hours 09/25/18 12:40 Urine Catheter - Catheter Legionella Antigen - Final 09/25/18 12:40 Urine Catheter - Catheter Streptococcus pneumoniae Antigen (M - Final 09/25/18 07:25 Mucosa - Nasopharyngeal Respiratory Panel (PCR) - Final Laboratory Results 09/25/18 04:30: WBC 8.9, RBC 3.32 L, Hgb 9.9 L, Hct 35.1 L, MCV 105.7 H, MCH 29.8, MCHC 28.2 L, RDW 16.6 H, RDW Differential 62.5 H, Plt Count 134 L, MPV 10.0 09/25/18 04:30: Sodium 148 H, Potassium 5.9 H, Chloride 121 H, Carbon Dioxide 23.0, Anion Gap 4 L, BUN 57 H, Creatinine 2.15 H, Estim Creat Clear Calc 25.61, Est GFR (MDRD) Af Amer 29 L, Est GFR (MDRD) Non-Af 24 L, BUN/Creatinine Ratio 26.5 H, Glucose 114 H, Calcium 7.7 L 09/25/18 04:30: B-Natriuretic Peptide 1913.0 H 09/25/18 04:30: Troponin I 0.490 H 09/25/18 05:24: Specimen Type ART, Sample Site L Radial, pH 7.23 L, Bicarbonate Actual 19.6 L, POC Total CO2 21, Base Excess -8 L, O2 Saturation 87 L, ABG pCO2 47.0 H, ABG pO2 64 L, Ray Test POS, O2 Delivery Device Nasal Can, Liter Flow 8.0, Blood Gas Notified Whom ICU MD, Blood Gas Notified Time 520 09/25/18 09:00: MRSA (PCR) POSITIVE H Code Visit Inpatient E&M: 72201 Subs Hosp L3
--- NOTE | 2018-09-25 08:03 | ECHOD_ITS ---
Reason For Study: Dyspnea/SOB Procedure This was a 2D Doppler, Color Flow transthoracic echocardiogram. Did not use Definity due to increased PAP. The study was technically difficult. Exam performed portable in ICU/CCU. Left Ventricle Normal LV size. Left ventricular systolic function is normal. The estimated ejection fraction is 65 %. No regional wall motion abnormalities noted. Right Ventricle Normal RV size. Normal systolic function. Atria The left atrium is mildly enlarged. Normal right atrium. No doppler evidence for ASD. Mitral Valve There is mild mitral annular calcification. Extension of the mitral annular calcification onto the posterior mitral valve leaflet. Mild diffuse mitral valve thickening. The mitral valve chordae are thickened and/or calcified. Mild mitral valve stenosis. Trivial mitral valve insufficiency. Tricuspid Valve Normal tricuspid valve. Moderate (2+) tricuspid valve insufficiency. Right ventricular systolic pressure estimated to be 94 mmHg. Aortic Valve Trisinus/trileaflet aortic valve. Mild diffuse aortic valve thickening. Moderate diffuse aortic valve calcification. Moderate to severe aortic valve stenosis. Pulmonic Valve The pulmonic valve is not well visualized. Mild-Moderate (1-2+) pulmonic valve insufficiency. Great Vessels Normal sized aortic root. Calcified aortic root. Pericardium/Pleural No pericardial effusion. MMode/2D Measurements & Calculations LVIDd: 4.7 cm IVSd: 1.8 cm LVOT diam: 2.0 cm LVIDs: 2.9 cm LVPWd: 1.1 cm LVOT area: 3.0 cm2 FS: 38.5 % Ao root diam: 3.0 cm LAV(MOD-bp): 54.5 ml LA A4 area: 19.7 cm2 LAV(MOD-bp) Indexed: 24.7 ml/m2 LAV(MOD-sp2): 48.1 ml LAV(MOD-sp4): 55.0 ml LA dimension(2D): 5.1 cm RA A4 area: 15.4 cm2 Time Measurements MV dec time: 0.13 sec Doppler Measurements & Calculations MV E max dominick: 152.2 cm/sec Lat Peak E' Dominick: 3.7 cm/sec Med Peak E' Dominick: 5.1 cm/sec MV A max dominick: 101.3 cm/sec E/E' lat: 40.7 E/E' med: 29.8 MV E/A: 1.5 MV V2 max: 162.3 cm/sec MV P1/2t max dominick: 166.1 cm/sec Ao V2 max: 358.3 cm/sec MV max P.5 mmHg MV P1/2t: 70.2 msec Ao max P.4 mmHg MV V2 mean: 92.8 cm/sec MV dec slope: 693.0 cm/sec2 Ao V2 mean: 270.7 cm/sec MV mean P.9 mmHg Ao mean P.7 mmHg MV V2 VTI: 41.2 cm MVA(P1/2t): 3.1 cm2 Ao V2 VTI: 75.2 cm MVA(VTI): 1.7 cm2 VIBHA(I,D): 0.91 cm2 VIBHA(V,D): 0.93 cm2 LV V1 max: 110.9 cm/sec SV(LVOT): 68.7 ml PA V2 max: 113.0 cm/sec LV V1 max P.9 mmHg LV V1 mean P.6 mmHg LV V1 mean: 76.0 cm/sec LV V1 VTI: 23.0 cm TR max dominick: 445.1 cm/sec TR max P.2 mmHg Interpretation Summary The study was technically difficult. Left ventricular systolic function is normal. The estimated ejection fraction is 65 %. The left atrium is mildly enlarged. There is mild mitral annular calcification. Extension of the mitral annular calcification onto the posterior mitral valve leaflet. Mild diffuse mitral valve thickening. The mitral valve chordae are thickened and/or calcified. Mild mitral valve stenosis. Trivial mitral valve insufficiency. Moderate to severe aortic valve stenosis. Mild-Moderate (1-2+) pulmonic valve insufficiency. Calcified aortic root. Right ventricular systolic pressure estimated to be 94 mmHg c/w severe pulmonary hypertension. Transmitral diastolic flow velocities suggest diastolic dysfunction (pseudonormal pattern). Ordering Physician: Raheem Anglin D.O. Referring Physician: Duc Echeverria Performed By: Jaimie Mayberry, SHELBI, RVT
--- NOTE | 2018-09-25 08:04 | RAD_ITS ---
STUDY: X-RAY CHEST REASON FOR EXAM: Female, 67 years old. Shortness of breath TECHNIQUE: Single AP portable view of the chest. COMPARISON: September 24, 2018 FINDINGS: Lungs are hypoinflated with slightly increased diffuse patchy airspace disease. There is no demonstrated pleural abnormality. Sternal cerclage wires are present from a prior sternotomy. Stable mild cardiomegaly. Normal mediastinum and kel. Normal visualized pulmonary arteries. Normal visualized aortic arch and descending thoracic aorta. Normal visualized thoracic spine. Normal visualized ribs, clavicles, and shoulders. There is no demonstrated abnormality of the visualized soft tissue structures of the upper abdomen. RAD/Chest 1 View (Portable) IMPRESSION: Worsening CHF Electronically Signed: Chilo Whitaker DO at 9:21 EDT Tel , Service support ,
--- NOTE | 2018-09-25 08:13 | CT_ITS ---
STUDY: CT CHEST WITHOUT CONTRAST REASON FOR EXAM: Female, 67 years old. Hypoxia RADIATION DOSAGE (If Supplied By Facility): CTDIvol = ( 20.15 ) mGy, DLP = ( 659.53 ) mGycm TECHNIQUE: Transaxial imaging was performed without the administration of intravenous contrast material. Individualized dose optimization techniques were used for this CT. COMPARISON: None. FINDINGS: Patchy nodular groundglass infiltration with multifocal dependent consolidation noted throughout both lungs. Small to moderate-sized bilateral pleural effusions, right greater than left. No pneumothorax. Mild cardiomegaly. Normal pericardium. Shotty mediastinal and hilar lymph nodes. Normal unenhanced pulmonary arteries. Thoracic aorta demonstrates no aneurysmal dilatation. There is moderate atherosclerotic calcification. Mild multilevel degenerative change of the spine. Visualized portions of the upper abdomen demonstrates a perihepatic and perisplenic ascites CT/Chest without Contrast IMPRESSION: 1. Diffuse bilateral pneumonic infiltrates with associated bibasilar consolidation and small to moderate-sized bilateral pleural effusions, right greater than left. 2. Reactive mediastinal and hilar lymph nodes. 3. Mild cardiomegaly. 4. Perihepatic and perisplenic ascites. Electronically Signed: Rashaad Doty MD at 5:00 EDT Tel , Service support ,
--- NOTE | 2018-09-25 08:19 | PCM.PN.HOSP ---
Patient Problems: Active and Suspected Problems (Last Reviewed 07/30/18 @ 15:46 by Maria L Ortiz) Hypoxia (Acute) Change in mental status (Acute) Encephalopathy (Acute) Subjective: Patient is awake alert x3. She was admitted yesterday for hypoxia, confusion and altered mental status from SNF. Chest x-ray shows right lower lobe infiltrate/atelectasis. Increased density in the left perihilar area. Patient has has bilateral lower leg cellulitis T-max 100.1 Fahrenheit last night. BNP elevated. Lactic acid normal Vitals/I&O's: Vital Signs Temp Pulse Resp BP Pulse Ox 97.5 F L 101 H 30 H 74/55 L 96 09/25/18 07:00 09/25/18 07:00 09/25/18 07:00 09/25/18 07:00 09/25/18 07:00 Oxygen Flow Rate (L/min) 11 Oxygen Delivery Method Bi-pap Weight: 247 lb 2.211 oz Body Mass Index (BMI) 37.5 Finger Stick Blood Glucose 74 Intake and Output for Last 24 Hours 09/23/18 09/24/18 09/25/18 23:59 23:59 23:59 Intake Total 502 / 502 Balance 502 / 502 General: Alert, Oriented x3, Cooperative HEENT: Atraumatic, PERRLA, EOMI, Normocephalic Oral: Dry Mucosa Neck: Supple, No JVD, Negative Carotid Bruits Lungs: Diminished - Air entry is diminished., Rales, Short of Breath - Mild short of breath Cardiovascular: Regular rate, Regular Rhythm, Normal S1, Normal S2, No murmurs Abdomen: Bowel Sounds Present, Soft, Non Tender, Non-Distended, No Hepato-splenomegaly Extremities: Capillary Refill Less than 3 Seconds, Edema - Bilateral lower extremity edema. Skin: Ulcer/ Wound - Superficial skin breakdown/ulcer on lower legs possibly secondary to edema Musculoskeletal: No Tenderness to Palpation of Joints or Extremities Neurological: Cranial nerves II-XII grossly intact Psych/Mental Status: Normal Affect, Appropriate Laboratory Results 09/24/18 19:08: WBC 9.9, RBC 3.26 L, Hgb 9.9 L, Hct 34.1 L, MCV 104.6 H, MCH 30.4, MCHC 29.0 L, RDW 17.0 H, RDW Differential 62.9 H, Plt Count 150, MPV 10.6, Immature Gran % (Auto) 0.200, Neut % (Auto) 93.8 H, Lymph % (Auto) 3.0 L, [place] % (Auto) 2.5, Eos % (Auto) 0.4, Baso % (Auto) 0.1, Absolute Neuts (auto) 9.3 H, Absolute Lymphs (auto) 0.30 L, Total Counted Not Reportable, Differential Comment SCANNED 09/24/18 19:08: PT 15.5 H, INR 1.3, APTT 28.6 09/24/18 19:08: Sodium 146 H, Potassium 6.2 H*, Chloride 119 H, Carbon Dioxide 22.0, Anion Gap 5, BUN 54 H, Creatinine 1.86 H, Estim Creat Clear Calc 29.61, Est GFR (MDRD) Af Amer 35 L, Est GFR (MDRD) Non-Af 29 L, BUN/Creatinine Ratio 29.0 H, Glucose 72 L, Calcium 7.5 L, Total Bilirubin 0.50, AST 26, ALT 28, Alkaline Phosphatase 130 H, Total Creatine Kinase 72, Troponin I 0.063 H, Total Protein 5.3 L, Albumin 2.2 L, Globulin 3.1, Albumin/Globulin Ratio 0.7 L 09/24/18 19:08: Lactic Acid 0.9 09/24/18 19:56: Ammonia 17.0 09/24/18 20:13: Specimen Type ART, Sample Site L Radial, pH 7.22 L, Bicarbonate Actual 20.1 L, POC Total CO2 22, Base Excess -8 L, O2 Saturation 95, ABG pCO2 49.5 H, ABG pO2 91, Ray Test POS, O2 Delivery Device NRB Mask, Liter Flow 15.0, Blood Gas Notified Whom ED 09/24/18 20:25: Urine Color Kenisha, Urine Clarity Cloudy, Urine pH 5.0, Ur Specific Daisy 1.025, Urine Protein 500 H, Urine Glucose (UA) Normal, Urine Ketones 5 H, Urine Occult Blood 10 H, Urine Nitrite Negative, Urine Bilirubin Negative, Urine Urobilinogen 4 H, Ur Leukocyte Esterase 25 H, Urine RBC 0 SEEN, Urine WBC 0-5 SEEN, Ur Squamous Epith Cells 0 SEEN, Calcium Oxalate Crystal RARE, Urine Bacteria 0 SEEN, Hyaline Casts 0-5 SEEN, Fine Granular Casts 5-10 SEEN, Urine Mucus 1+ 09/24/18 20:29: POC Glucose 74 09/24/18 21:58: POC Glucose 105 09/24/18 22:00: Lactic Acid 0.8 09/24/18 23:48: Specimen Type ART, Sample Site L Radial, pH 7.16 L*, Bicarbonate Actual 20.0 L, POC Total CO2 22, Base Excess -9 L, O2 Saturation 87 L, ABG pCO2 56.6 H, ABG pO2 68 L, Ray Test NA, O2 Delivery Device Nasal Can, Liter Flow 12.0, Blood Gas Notified Whom ED MD 09/25/18 04:30: WBC 8.9, RBC 3.32 L, Hgb 9.9 L, Hct 35.1 L, MCV 105.7 H, MCH 29.8, MCHC 28.2 L, RDW 16.6 H, RDW Differential 62.5 H, Plt Count 134 L, MPV 10.0 09/25/18 04:30: Sodium 148 H, Potassium 5.9 H, Chloride 121 H, Carbon Dioxide 23.0, Anion Gap 4 L, BUN 57 H, Creatinine 2.15 H, Estim Creat Clear Calc 25.61, Est GFR (MDRD) Af Amer 29 L, Est GFR (MDRD) Non-Af 24 L, BUN/Creatinine Ratio 26.5 H, Glucose 114 H, Calcium 7.7 L 09/25/18 04:30: B-Natriuretic Peptide Pending 09/25/18 05:24: Specimen Type ART, Sample Site L Radial, pH 7.23 L, Bicarbonate Actual 19.6 L, POC Total CO2 21, Base Excess -8 L, O2 Saturation 87 L, ABG pCO2 47.0 H, ABG pO2 64 L, Ray Test POS, O2 Delivery Device Nasal Can, Liter Flow 8.0, Blood Gas Notified Whom ICU MD, Blood Gas Notified Time 520 Current Medications Albuterol/Ipratropium (Duoneb) 3 ml INHALATION Q6H.RT DIANELYS Last Admin: 09/25/18 06:45 Dose: 3 ml Enoxaparin Sodium (Lovenox) 30 mg SC DAILY@1000 DIANELYS Sodium Chloride () 1,000 mls @ 100 mls/hr IV .Q10H DIANELYS Last Admin: 09/25/18 01:30 Dose: 100 mls/hr Meropenem 1 gm/ Sodium (Chloride) 120 mls @ 33 mls/hr IV Q12 DIANELYS Sodium Chloride () 250 mls @ 15 mls/hr IV .[id number] PRN PRN Reason: SALINE FLUSH Sodium Chloride () 5 - 15 ml IV UD PRN PRN Reason: SALINE FLUSH Medical Necessity - Tobacco Use Smoking Status: Former smoker Tobacco Use: Non-smoker Assessment/Plan All Active Problems (Last Reviewed 07/30/18 @ 15:46 by Maria L Ortiz) Bilateral cellulitis of lower leg (Acute) Acute on chronic respiratory failure with hypoxemia (Acute) Flu-like symptoms (Acute) Hypoxia (Acute) Change in mental status (Acute) Encephalopathy (Acute) BRBPR (bright red blood per rectum) (Resolved) C. difficile colitis (Resolved) Cholelithiasis (Resolved) Hyperkalemia (Resolved) There is a 67-year-old female was admitted from SNF for hypoxia, change in mental status, confusion and disorientation. She was found to have 66% on room air in SNF and 71% on 4 L oxygen was given aerosol treatment and pulse ox was 96%. She was vaguely responsive to painful stimuli SNF. Patient was put on BiPAP and was further admitted in ICU #1 acute hypoxic and hypercarbic combined respiratory failure-patient is being admitted in ICU. Diagnostic Medical Sonographer was consulted. Initial ABG reported pH 7.16, PCO2 57/PO2 68 on 12 L of oxygen. Repeat ABG on 09/25 is better, 7.23/40 7/64 on 8 L of oxygen. Continue oxygen support and BiPAP if needed. It seems patient was not on oxygen in jail. #2 acute metabolic/infectious encephalopathy-much improved. Patient was seen by neurologist. CT head showed worsening of white matter changes but as per neurologist no change from previous CT head. Advised CT head without contrast after 24 hours. Patient cannot have MRI brain secondary to cochlear implant. No focal symptoms to suggest stroke. #3 healthcare acquired pneumonia right lower lobe-continue on meropenem and vancomycin. Urinary antigens are negative. Respiratory panel negative. MRSA nasal screen is positive therefore continue vancomycin. #4 Type 2 diabetes-on Accu-Cheks and cover with NovoLog sliding scale. #5 coronary artery disease status post three-vessel CABG in 2007. Patient had repeat heart cath in September 2017 reported as saphenous vein graft to circumflex is totally occluded but STOYR to mid LAD and saphenous vein graft to distal RCA patent. History of right femoral bypass surgery. Acute on chronic heart failure with preserved EF suggestive of diastolic heart failure and valvular heart disease with secondary pulmonary hypertension: Echo done on 09/25 reported EF 65% with no regional wall motion abnormality. Left atrium mildly enlarged. Normal right atrium normal RV size systolic function. Mild mitral valve stenosis. Moderate 2+ TR, RVSP 94 mmHg cystoscopy secondary pulmonary hypertension. Moderate to severe aortic valve stenosis. 1-2+ CO. IV fluid is discontinued. Will need gentle diuresis if blood pressure and kidney function permits. Intermittent troponin mainly from heart failure and demand ischemia. Patient does not have chest pain. Peripheral arterial disease: Arterial study on June 2018 reported as calcification of vessel ortiz in ankle. Mild peripheral arterial disease reported Acute kidney injury on CKD stage III: Patient baseline creatinine runs around 1.6-1.8 with gradual worsening from 2017. BUN/creatinine 57/2.15. #6 hyperlipidemia #7 hypertension #8 hyperkalemia-etiology unclear, BMP will be rechecked, I have decided not to give the patient any Kayexalate at this time. Repeat K is 5.9 #9 chronic kidney disease stage IV secondary to type 2 diabetes, labs will be monitored Microbiology Past 72 Hours 09/25/18 12:40 Urine Catheter - Catheter Legionella Antigen - Final 09/25/18 12:40 Urine Catheter - Catheter Streptococcus pneumoniae Antigen (M - Final 09/25/18 07:25 Mucosa - Nasopharyngeal Respiratory Panel (PCR) - Final Laboratory Results 09/25/18 04:30: WBC 8.9, RBC 3.32 L, Hgb 9.9 L, Hct 35.1 L, MCV 105.7 H, MCH 29.8, MCHC 28.2 L, RDW 16.6 H, RDW Differential 62.5 H, Plt Count 134 L, MPV 10.0 09/25/18 04:30: Sodium 148 H, Potassium 5.9 H, Chloride 121 H, Carbon Dioxide 23.0, Anion Gap 4 L, BUN 57 H, Creatinine 2.15 H, Estim Creat Clear Calc 25.61, Est GFR (MDRD) Af Amer 29 L, Est GFR (MDRD) Non-Af 24 L, BUN/Creatinine Ratio 26.5 H, Glucose 114 H, Calcium 7.7 L 09/25/18 04:30: B-Natriuretic Peptide 1913.0 H 09/25/18 04:30: Troponin I 0.490 H 09/25/18 05:24: Specimen Type ART, Sample Site L Radial, pH 7.23 L, Bicarbonate Actual 19.6 L, POC Total CO2 21, Base Excess -8 L, O2 Saturation 87 L, ABG pCO2 47.0 H, ABG pO2 64 L, Ray Test POS, O2 Delivery Device Nasal Can, Liter Flow 8.0, Blood Gas Notified Whom ICU MD, Blood Gas Notified Time 520 09/25/18 09:00: MRSA (PCR) POSITIVE H Code Visit Inpatient E&M: 22075 Subs Hosp L3
--- NOTE | 2018-09-25 09:54 | CM.UR ---
Participated in interdisciplinary rounds this am. Still has multiple tests upcoming. 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 Will anticipate her returning as skilled. Marcia Guadarrama RN, CCM.
--- NOTE | 2018-09-25 10:27 | PCM.RX.CS ---
Consult Pharmacy has been consulted to manage selected antiobiotic: Vancomycin Type of Consult: New start Suspected Infection: Pneumonia Prior Doses of Antibiotics Received/Current Regimen: Received 2000mg IV x1 in ED last night 09/24/18 at 22:31 Labs: Sodium 148 mmol/L (136-145) H 09/25/18 04:30 Potassium 5.9 mmol/L (3.5-5.1) H 09/25/18 04:30 Chloride 121 mmol/L (98-107) H 09/25/18 04:30 Carbon Dioxide 23.0 mmol/L (21.0-32.0) 09/25/18 04:30 Anion Gap 4 (5-15) L 09/25/18 04:30 BUN 57 mg/dL (7-18) H 09/25/18 04:30 Creatinine 2.15 mg/dL (0.55-1.02) H 09/25/18 04:30 Est GFR (MDRD) Af Amer 29 mL/min (>60) L 09/25/18 04:30 Est GFR (MDRD) Non-Af 24 mL/min (>60) L 09/25/18 04:30 BUN/Creatinine Ratio 26.5 RATIO (10-20) H 09/25/18 04:30 Glucose 114 mg/dL (74-106) H 09/25/18 04:30 Weight used for dosin kg Estimated Creatinine Clearance: 33 ml/min Goal Trough: 15-20 mcg/mL Pharmacy Plan for Drug Dosing: Using an estimated CrCl of 33 ml/min (calculated using the Cockcroft-Gault equation with an adjusted body weight of 83kg), recommend maintenance dosing to continue at 1500mg IV q24h. Obtain a trough before the 3rd total dose. Pharmacy Service will continue to monitor and adjust dosing as required. Follow-Up Labs: Trough Vancomycin Labs to be done on [date and time ordered]: 09/26/18 21:30
[2018-09-25 10:51] LABS: M R Staph aureus DNA By PCR POSITIVE (Negative); Probe Check PASS
[2018-09-25] MEDS: 0.9% NaCl Peripheral Flush Adult/Peds IV ×3 (11:28→20:13)
[2018-09-25] MEDS: Enoxaparin 30 MG/0.3 ML Syringe SC (11:29)
--- NOTE | 2018-09-25 11:29 | PCM.CONS.GEN ---
Problem List (1) Encephalopathy Status: Acute Reason for Consult Date of Consultation: 09/25/18 Reason for Consultation: encephalopathy History of Present Illness: The patient is a 67 year old F PMH HTN, HLD, DM, CAD status post CABG, CKD, lower extremity ulcer, venous insufficiency, assisted resident admitted with lethargy hypoxia and change in mental status found to have pneumonia. CT head done on admission reported to show no acute infarct but was read as showing worsening right frontoparietal deep white matter ischemia which may be progression of the old changes. Neurology has been consulted for altered mental status and abnormal CT head. At present patient is alert and oriented, denies any headache, dizziness, focal motor weakness, sensory loss, visual disturbance or speech disturbances. Per patient she does not drive, uses cane/walker to ambulate and denies any frequent falls. Patient cannot get an MRI due to cochlear implant. Labs showed WBC 8.9, Hb 9.9, platelet 134, sodium 148, potassium 6.2 on admission, lactate 0.8, creatinine 2.15, AST/ALT 26/28, total creatinine kinase 72, BNP 1913. UA showed 0 bacteria, 0-5 WBC, LE?25, nitrites negative. Per documentation she is on aspirin and rosuvastatin at baseline. [] Past Medical History Past Medical History (Chronic Problems): Chronic Problems (Last Reviewed 07/30/18 @ 15:46 by Maria L Ortiz) Hyperlipidemia (Chronic) Hypertension (Chronic) H/O coronary artery bypass surgery (Chronic ~2007) CABG x 3 STORY-LAD, SVG-RCA, SVG-Cx 2007 Atherosclerosis of coronary artery of [place] heart without angina pectoris (Chronic) CABG x 3 STORY-LAD, SVG-RCA, SVG-Cx 2007 Nonrheumatic tricuspid valve regurgitation (Chronic) Secondary pulmonary arterial hypertension (Chronic) Non-rheumatic aortic stenosis (Chronic) Ulcer of right lower extremity with fat layer exposed (Chronic) anterior lower extremity ulcer Venous insufficiency of both lower extremities (Chronic) Other specified peripheral vascular diseases (Chronic) Ulcer of left lower extremity with fat layer exposed (Chronic) Delayed wound healing (Chronic) Maceration of skin (Chronic) Type 2 diabetes mellitus with diabetic peripheral angiopathy without gangrene (Chronic) Lymphedema in adult patient (Chronic) Noncompliance with treatment regimen (Chronic) Pulmonary nodules (Chronic) Obesity (BMI 30.0-34.9) (Chronic) 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) Thrombocytopenia (Chronic) Medical History: Medical History (Last Reviewed 07/30/18 @ 15:46 by Maria L Ortiz) Hyperlipidemia (Chronic) E78.5 Hypertension (Chronic) I10 Atherosclerosis of coronary artery of [place] heart without angina pectoris (Chronic) I25.10 CABG x 3 STORY-LAD, SVG-RCA, SVG-Cx 2007 Nonrheumatic tricuspid valve regurgitation (Chronic) I36.1 Secondary pulmonary arterial hypertension (Chronic) I27.21 Non-rheumatic aortic stenosis (Chronic) I35.0 Venous insufficiency of both lower extremities (Chronic) I87.2 Type 2 diabetes mellitus with diabetic peripheral angiopathy without gangrene (Chronic) E11.51 Obesity (BMI 30.0-34.9) (Chronic) E66.9 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) E11.22, N18.3 GERD (gastroesophageal reflux disease) K21.9 Peripheral neuropathy G62.9 Allergies Penicillins Allergy (Verified 07/30/18 15:47) Rash rosiglitazone maleate [From Avandia] Allergy (Verified 07/30/18 15:47) Swelling & diarrhea simvastatin [From Zocor] Allergy (Verified 07/30/18 15:47) Muscle weakness atorvastatin calcium [From Lipitor] Adverse Reaction (Verified 07/30/18 15:47) Muscle weakness esomeprazole magnesium [From Nexium] Adverse Reaction (Verified 07/30/18 15:47) Diarrhea lansoprazole [From Prevacid] Adverse Reaction (Verified 07/30/18 15:47) Diarrhea Sulfa (Sulfonamide Antibiotics) Adverse Reaction (Verified 07/30/18 15:47) Nausea/Vom/Diarrhea from PCP office records Home Medications: Ambulatory Orders Medication Instructions Recorded Aspirin [Aspirin, Baby] 81 mg PO DAILY@0800 10/20/14 Metoprolol Tartrate [Lopressor 100 mg PO BID 10/21/14 (beta apryl)] Pantoprazole Sodium [Protonix] 40 mg PO BID 10/21/14 Rosuvastatin Calcium [Crestor] 2.5 mg PO QHS 10/21/14 Nitroglycerin [Nitrostat] 0.4 mg SUBLINGUAL Q5M PRN 11/24/14 Ergocalciferol [Vitamin D] 50,000 units PO SA 02/16/16 Niacinamide [Niacin] 500 mg PO BID 02/16/16 Montelukast Sodium [Singulair] 10 mg PO QHS 05/06/16 Ondansetron [Zofran Odt] 8 mg PO Q6H PRN PRN 03/31/17 Amlodipine [Norvasc] 5 mg PO DAILY 10/12/17 Alpha Lipoic Acid 600 mg PO QHS 01/24/18 Acetaminophen [Tylenol Tablet] 650 mg PO Q6H PRN PRN tab 01/28/18 Albuterol Aerosols [Ventolin 2.5 mg INHALATION Q2H PRN PRN 01/28/18 Aerosols] vial.neb. Cetirizine HCl [Zyrtec] 10 mg PO DAILY PRN 03/17/18 Bisacodyl [Dulcolax] 10 mg RECTAL DAILY PRN PRN 03/18/18 Guaifenesin [Robitussin] 10 ml PO Q4H PRN PRN 03/18/18 Magnesium Hydroxide [Milk Of 30 ml PO DAILY PRN PRN udc 03/20/18 Magnesia] Menthol/Lanolin/Calamine/Znox 1 applic TOPICAL TID tube 03/20/18 [Calmoseptine Ointment] Senna/Docusate Sodium [Senokot-S] 2 tab PO BID PRN tab 03/20/18 Ascorbic Acid [Vitamin C] 500 mg PO DAILY@0800 09/25/18 Clopidogrel Bisulfate [Plavix] 75 mg PO DAILY 09/25/18 Ferrous Gluconate 325 mg PO BIDCM 09/25/18 Fluticasone 0.05% [Flonase Nasal 2 spray NASAL DAILY 09/25/18 [place]] Insulin Glargine [Lantus SoloStar 38 units SC QHS 09/25/18 Pen] Insulin Lispro [Humalog KwikPen] 10 unit SQ DINNER 09/25/18 Insulin Lispro [Humalog KwikPen] 10 unit SQ LUNCH 09/25/18 Insulin Lispro [Humalog KwikPen] 12 unit SQ BREAKFAST 09/25/18 Insulin Lispro [Humalog KwikPen] See Protocol SQ ACHS 09/25/18 Isosorbide Mononitrate [Imdur] 60 mg PO DAILY 09/25/18 L. Rhamnosus GG/Inulin [Culturelle 1 each PO BID 09/25/18 Probiotics Capsule] Multivitamin with Minerals 1 each PO DAILY 09/25/18 [Multiple Vitamin] Nystatin Powder [Mycostatin Powder] 1 applic TOPICAL TID 09/25/18 Prednisone 5 mg PO DAILY 09/25/18 Surgical History: Surgical History (Last Reviewed 07/30/18 @ 15:46 by Maria L Ortiz) H/O coronary artery bypass surgery (Chronic) Onset Date: ~2007 Z95.1 CABG x 3 STORY-LAD, SVG-RCA, SVG-Cx [address] Z96.21 History of left heart catheterization Onset Date: 10/15/17 Z98.890 STORY graft to the Mid LAD is patent Saphenous Vein graft to the CIRC is totally occluded Saphenous Vein graft to the Distal RCA is patent history of right femoral bypass surgery Surgical History: coronary bypass surgery, - Psychiatric History: No pertinent psych hx 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 Lives: Longterm Smoking Status: Former smoker Tobacco Use: Non-smoker Alcohol: None Drugs: None - *Family History Sibling Family History: Family History (Last Reviewed 07/30/18 @ 15:46 by Maria L Ortiz) Other CAD (coronary artery disease) History Items: Heart Disease Maternal Family History: Family History (Last Reviewed 07/30/18 @ 15:46 by Maria L Ortiz) Other CAD (coronary artery disease) History Items: No pertinent history Paternal Family History: Family History (Last Reviewed 07/30/18 @ 15:46 by Maria L Ortiz) Other CAD (coronary artery disease) History Items: No pertinent history Review of Systems Constitutional: Reports: - - Complete ROS negative except as documented in HPI Patient Problems: Active and Suspected Problems (Last Reviewed 07/30/18 @ 15:46 by Maria L Ortiz) Hypoxia (Acute) Change in mental status (Acute) Encephalopathy (Acute) - Physical Exam General: Alert HEENT: Normocephalic Neck: Supple Lungs: Normal air movement Cardiovascular: Normal S1, Normal S2 Abdomen: Bowel Sounds Present Extremities: No cyanosis Neurological: - - consious, alert, AoAx3 at present, CN 2-12 grossly intact, moves all 4 extremities, no focal weakness, no sensory loss, no cerebellar signs, Plantars could not be assessed as patient has bandage both LE, Reflexes + B/L B/S/T/K/A, gait deferred. Psych/Mental Status: Normal Affect Vital Signs Temp Pulse Resp BP Pulse Ox 97.5 F L 101 H 30 H 74/55 L 96 09/25/18 07:00 09/25/18 07:00 09/25/18 07:00 09/25/18 07:00 09/25/18 07:00 Oxygen Flow Rate (L/min) 12 Oxygen Delivery Method Nasal Cannula Weight: 112.1 kg Body Mass Index (BMI) 37.5 Finger Stick Blood Glucose 74 Intake and Output for Last 24 Hours 09/23/18 09/24/18 09/25/18 23:59 23:59 23:59 Intake Total 502 / 502 Balance 502 / 502 Microbiology Past 72 Hours 09/25/18 07:25 Respiratory Panel (PCR) - Final Mucosa - Nasopharyngeal Laboratory Tests Past 24 Hrs 09/24/18 09/24/18 09/24/18 19:08 19:08 19:08 WBC 9.9 RBC 3.26 L Hgb 9.9 L Hct 34.1 L MCV 104.6 H MCH 30.4 MCHC 29.0 L RDW 17.0 H RDW Differential 62.9 H Plt Count 150 MPV 10.6 Immature Gran % (Auto) 0.200 Neut % (Auto) 93.8 H Lymph % (Auto) 3.0 L [place] % (Auto) 2.5 Eos % (Auto) 0.4 Baso % (Auto) 0.1 Absolute Neuts (auto) 9.3 H Absolute Lymphs (auto) 0.30 L Total Counted Not Reportable Differential Comment SCANNED PT 15.5 H INR 1.3 APTT 28.6 Specimen Type Sample Site pH Bicarbonate Actual POC Total CO2 Base Excess O2 Saturation ABG pCO2 ABG pO2 Ray Test O2 Delivery Device Liter Flow Blood Gas Notified Whom Blood Gas Notified Time Sodium 146 H Potassium 6.2 H* Chloride 119 H Carbon Dioxide 22.0 Anion Gap 5 BUN 54 H Creatinine 1.86 H Estim Creat Clear Calc 29.61 Est GFR (MDRD) Af Amer 35 L Est GFR (MDRD) Non-Af 29 L BUN/Creatinine Ratio 29.0 H Glucose 72 L Lactic Acid Calcium 7.5 L Total Bilirubin 0.50 AST 26 ALT 28 Alkaline Phosphatase 130 H Ammonia Total Creatine Kinase 72 Troponin I 0.063 H B-Natriuretic Peptide Total Protein 5.3 L Albumin 2.2 L Globulin 3.1 Albumin/Globulin Ratio 0.7 L Urine Color Urine Clarity Urine pH Ur Specific [place] Urine Protein Urine Glucose (UA) Urine Ketones Urine Occult Blood Urine Nitrite Urine Bilirubin Urine Urobilinogen Ur Leukocyte Esterase Urine RBC Urine WBC Ur Squamous Epith Cells Calcium Oxalate Crystal Urine Bacteria Hyaline Casts Fine Granular Casts Urine Mucus MRSA (PCR) 09/24/18 09/24/18 09/24/18 19:08 19:56 20:13 WBC RBC Hgb Hct MCV MCH MCHC RDW RDW Differential Plt Count MPV Immature Gran % (Auto) Neut % (Auto) Lymph % (Auto) [place] % (Auto) Eos % (Auto) Baso % (Auto) Absolute Neuts (auto) Absolute Lymphs (auto) Total Counted Differential Comment PT INR APTT Specimen Type ART Sample Site L Radial pH 7.22 L Bicarbonate Actual 20.1 L POC Total CO2 22 Base Excess -8 L O2 Saturation 95 ABG pCO2 49.5 H ABG pO2 91 Ray Test POS O2 Delivery Device NRB Mask Liter Flow 15.0 Blood Gas Notified Whom ED MD Blood Gas Notified Time Sodium Potassium Chloride Carbon Dioxide Anion Gap BUN Creatinine Estim Creat Clear Calc Est GFR (MDRD) Af Amer Est GFR (MDRD) Non-Af BUN/Creatinine Ratio Glucose Lactic Acid 0.9 Calcium Total Bilirubin AST ALT Alkaline Phosphatase Ammonia 17.0 Total Creatine Kinase Troponin I B-Natriuretic Peptide Total Protein Albumin Globulin Albumin/Globulin Ratio Urine Color Urine Clarity Urine pH Ur Specific [place] Urine Protein Urine Glucose (UA) Urine Ketones Urine Occult Blood Urine Nitrite Urine Bilirubin Urine Urobilinogen Ur Leukocyte Esterase Urine RBC Urine WBC Ur Squamous Epith Cells Calcium Oxalate Crystal Urine Bacteria Hyaline Casts Fine Granular Casts Urine Mucus MRSA (PCR) 09/24/18 09/24/18 09/24/18 20:25 22:00 23:48 WBC RBC Hgb Hct MCV MCH MCHC RDW RDW Differential Plt Count MPV Immature Gran % (Auto) Neut % (Auto) Lymph % (Auto) [place] % (Auto) Eos % (Auto) Baso % (Auto) Absolute Neuts (auto) Absolute Lymphs (auto) Total Counted Differential Comment PT INR APTT Specimen Type ART Sample Site L Radial pH 7.16 L* Bicarbonate Actual 20.0 L POC Total CO2 22 Base Excess -9 L O2 Saturation 87 L ABG pCO2 56.6 H ABG pO2 68 L Ray Test NA O2 Delivery Device Nasal Can Liter Flow 12.0 Blood Gas Notified Whom ED MD Blood Gas Notified Time Sodium Potassium Chloride Carbon Dioxide Anion Gap BUN Creatinine Estim Creat Clear Calc Est GFR (MDRD) Af Amer Est GFR (MDRD) Non-Af BUN/Creatinine Ratio Glucose Lactic Acid 0.8 Calcium Total Bilirubin AST ALT Alkaline Phosphatase Ammonia Total Creatine Kinase Troponin I B-Natriuretic Peptide Total Protein Albumin Globulin Albumin/Globulin Ratio Urine Color [place] Urine Clarity Cloudy Urine pH 5.0 Ur Specific [place] 1.025 Urine Protein 500 H Urine Glucose (UA) Normal Urine Ketones 5 H Urine Occult Blood 10 H Urine Nitrite Negative Urine Bilirubin Negative Urine Urobilinogen 4 H Ur Leukocyte Esterase 25 H Urine RBC 0 SEEN Urine WBC 0-5 SEEN Ur Squamous Epith Cells 0 SEEN Calcium Oxalate Crystal RARE Urine Bacteria 0 SEEN Hyaline Casts 0-5 SEEN Fine Granular Casts 5-10 SEEN Urine Mucus 1+ MRSA (PCR) 09/25/18 09/25/18 09/25/18 04:30 04:30 04:30 WBC 8.9 RBC 3.32 L Hgb 9.9 L Hct 35.1 L MCV 105.7 H MCH 29.8 MCHC 28.2 L RDW 16.6 H RDW Differential 62.5 H Plt Count 134 L MPV 10.0 Immature Gran % (Auto) Neut % (Auto) Lymph % (Auto) [place] % (Auto) Eos % (Auto) Baso % (Auto) Absolute Neuts (auto) Absolute Lymphs (auto) Total Counted Differential Comment PT INR APTT Specimen Type Sample Site pH Bicarbonate Actual POC Total CO2 Base Excess O2 Saturation ABG pCO2 ABG pO2 Ray Test O2 Delivery Device Liter Flow Blood Gas Notified Whom Blood Gas Notified Time Sodium 148 H Potassium 5.9 H Chloride 121 H Carbon Dioxide 23.0 Anion Gap 4 L BUN 57 H Creatinine 2.15 H Estim Creat Clear Calc 25.61 Est GFR (MDRD) Af Amer 29 L Est GFR (MDRD) Non-Af 24 L BUN/Creatinine Ratio 26.5 H Glucose 114 H Lactic Acid Calcium 7.7 L Total Bilirubin AST ALT Alkaline Phosphatase Ammonia Total Creatine Kinase Troponin I B-Natriuretic Peptide 1913.0 H Total Protein Albumin Globulin Albumin/Globulin Ratio Urine Color Urine Clarity Urine pH Ur Specific [place] Urine Protein Urine Glucose (UA) Urine Ketones Urine Occult Blood Urine Nitrite Urine Bilirubin Urine Urobilinogen Ur Leukocyte Esterase Urine RBC Urine WBC Ur Squamous Epith Cells Calcium Oxalate Crystal Urine Bacteria Hyaline Casts Fine Granular Casts Urine Mucus MRSA (PCR) 09/25/18 09/25/18 09/25/18 04:30 05:24 09:00 WBC RBC Hgb Hct MCV MCH MCHC RDW RDW Differential Plt Count MPV Immature Gran % (Auto) Neut % (Auto) Lymph % (Auto) [place] % (Auto) Eos % (Auto) Baso % (Auto) Absolute Neuts (auto) Absolute Lymphs (auto) Total Counted Differential Comment PT INR APTT Specimen Type ART Sample Site L Radial pH 7.23 L Bicarbonate Actual 19.6 L POC Total CO2 21 Base Excess -8 L O2 Saturation 87 L ABG pCO2 47.0 H ABG pO2 64 L Ray Test POS O2 Delivery Device Nasal Can Liter Flow 8.0 Blood Gas Notified Whom ICU MD Blood Gas Notified Time 520 Sodium Potassium Chloride Carbon Dioxide Anion Gap BUN Creatinine Estim Creat Clear Calc Est GFR (MDRD) Af Amer Est GFR (MDRD) Non-Af BUN/Creatinine Ratio Glucose Lactic Acid Calcium Total Bilirubin AST ALT Alkaline Phosphatase Ammonia Total Creatine Kinase Troponin I 0.490 H B-Natriuretic Peptide Total Protein Albumin Globulin Albumin/Globulin Ratio Urine Color Urine Clarity Urine pH Ur Specific [place] Urine Protein Urine Glucose (UA) Urine Ketones Urine Occult Blood Urine Nitrite Urine Bilirubin Urine Urobilinogen Ur Leukocyte Esterase Urine RBC Urine WBC Ur Squamous Epith Cells Calcium Oxalate Crystal Urine Bacteria Hyaline Casts Fine Granular Casts Urine Mucus MRSA (PCR) POSITIVE H POC Glucose 09/24/18 09/24/18 21:58 20:29 POC Glucose 105 74 Assessment/Plan All Active Problems (Last Reviewed 07/30/18 @ 15:46 by Maria L Ortiz) Bilateral cellulitis of lower leg (Acute) Acute on chronic respiratory failure with hypoxemia (Acute) Flu-like symptoms (Acute) Hypoxia (Acute) Change in mental status (Acute) Encephalopathy (Acute) BRBPR (bright red blood per rectum) (Resolved) C. difficile colitis (Resolved) Cholelithiasis (Resolved) Hyperkalemia (Resolved) The patient is a 67 year old F PMH HTN, HLD, DM, CAD status post CABG, CKD, lower extremity ulcer, venous insufficiency, assisted resident admitted with lethargy hypoxia and change in mental status found to have pneumonia. CT head done on admission reported to show no acute infarct but was read as showing worsening right frontoparietal deep white matter ischemia which may be progression of the old changes. Neurology has been consulted for altered mental status and abnormal CT head. At present patient is alert and oriented, denies any headache, dizziness, focal motor weakness, sensory loss, visual disturbance or speech disturbances. Per patient she does not drive, uses cane/walker to ambulate and denies any frequent falls. Patient cannot get an MRI due to cochlear implant. Labs showed WBC 8.9, Hb 9.9, platelet 134, sodium 148, potassium 6.2 on admission, lactate 0.8, creatinine 2.15, AST/ALT 26/28, total creatinine kinase 72, BNP 1913. UA showed 0 bacteria, 0-5 WBC, LE?25, nitrites negative. Per documentation she is on aspirin and rosuvastatin at baseline. Pression Altered mental status?metabolic encephalopathy Plan ?CT head reported to show worsening right frontoparietal deep white matter ischemia which may be progression of the old changes, reported not to show any acute ischemic infarct. On my review there is no acute stroke on the CT head and the comparison with the prior CT head done in 2017 appears to be stable. ?Patient cannot get MRI brain due to cochlear implant, repeat CT head without contrast in 24 hours ?Patient cannot get an CT angiogram head and neck due to worsening creatinine levels and decreasing creatinine clearance. As such at present patient does not have any clinical symptoms of stroke and it is highly unlikely to be stroke at present clinically. ?Can check carotid ultrasound ?Labs reviewed. ?Patient on aspirin and rosuvastatin at baseline per documentation ?PT/OT/ST ?GI/DVT prophylaxis ?Fall precautions ?Further medical management per hospitalist team and ICU team ?Please call with questions if any ?Thank you for allowing us to part spent in patient's care and management Code Visit Inpatient E&M: [id number] Init Hosp L3
[2018-09-25] MEDS: Furosemide 20 MG/2 ML VIAL IV (16:05)
[2018-09-25 16:16] LABS: Bedside Glucose 120 mg/dL (70-110)
--- NOTE | 2018-09-25 18:32 | PCM.CONS.R ---
Problem List (1) Acute kidney injury superimposed on CKD Status: Chronic (2) Hyperkalemia Status: Acute Consultation - Renal PCP/ Referring MD: Requesting physician: [] Primary care physician: Kim Field - History of Present Illness History of Present Illness: The patient is a 67 year old F was brought in from her extended care facility due to hypoxia and change in mental status. Patient was found to have a pneumonia along with a low oxygen saturation needing high O2 flow through nasal cannula. Patient was admitted to ICU with respiratory failure. Renal team was consulted for worsening kidney function along with a creatinine. Baseline creatinine seems around 2. Creatinine today 2.1 mg a deciliter. Patient presented with potassium 6.2. Patient was given calcium gluconate, insulin with D50, potassium today 5.9. Patient initially was treated with IV fluid but then IV fluid was stopped due to history of CHF. Echocardiogram showed normal ejection fraction, severe pulmonary hypertension, +2 tricuspid regurgitation , and severe aortic stenosis Awake not oriented . Review of system . 12 system review is negative except for fatigue shortness of breath [] - Allergies Allergies: Allergies Penicillins Allergy (Verified 07/30/18 15:47) Rash rosiglitazone maleate [From Avandia] Allergy (Verified 07/30/18 15:47) Swelling & diarrhea simvastatin [From Zocor] Allergy (Verified 07/30/18 15:47) Muscle weakness atorvastatin calcium [From Lipitor] Adverse Reaction (Verified 07/30/18 15:47) Muscle weakness esomeprazole magnesium [From Nexium] Adverse Reaction (Verified 07/30/18 15:47) Diarrhea lansoprazole [From Prevacid] Adverse Reaction (Verified 07/30/18 15:47) Diarrhea Sulfa (Sulfonamide Antibiotics) Adverse Reaction (Verified 07/30/18 15:47) Nausea/Vom/Diarrhea from PCP office records - Current Medications Current Medications: Current Medications Albuterol/Ipratropium (Duoneb) 3 ml INHALATION Q6H.RT [facility] Last Admin: 09/25/18 12:51 Dose: Not Given Enoxaparin Sodium (Lovenox) 30 mg SC DAILY@1000 [facility] Last Admin: 09/25/18 11:29 Dose: 30 mg Meropenem 1 gm/ Sodium (Chloride) 120 mls @ 33 mls/hr IV Q12 [facility] Last Admin: 09/25/18 11:28 Dose: 33 mls/hr Sodium Chloride () 250 mls @ 15 mls/hr IV .[id number] PRN PRN Reason: SALINE FLUSH Vancomycin IV Pharmacy to Dose (1 ea/ Sodium Chloride) 500 mls @ 250 mls/hr IV X1 PRN; Protocol PRN Reason: Rx to Dose Vancomycin HCl 1,500 mg/ (Sodium Chloride) 530 mls @ 250 mls/hr IV Q24H [facility] Insulin Human Lispro (Humalog Kwikpen (Bkc)) 0 unit SC Q6 [facility]; Protocol Last Admin: 09/25/18 17:14 Dose: Not Given Sodium Chloride () 5 - 15 ml IV UD PRN PRN Reason: SALINE FLUSH Last Admin: 09/25/18 16:05 Dose: 10 ml - Past Medical History Past Medical History (Chronic Problems): Chronic Problems (Last Reviewed 07/30/18 @ 15:46 by Maria L Ortiz) Acute kidney injury superimposed on CKD (Chronic) Hyperlipidemia (Chronic) Hypertension (Chronic) H/O coronary artery bypass surgery (Chronic ~2007) CABG x 3 STORY-LAD, SVG-RCA, SVG-Cx 2008 Atherosclerosis of coronary artery of [place] heart without angina pectoris (Chronic) CABG x 3 STORY-LAD, SVG-RCA, SVG-Cx 2007 Nonrheumatic tricuspid valve regurgitation (Chronic) Secondary pulmonary arterial hypertension (Chronic) Non-rheumatic aortic stenosis (Chronic) Ulcer of right lower extremity with fat layer exposed (Chronic) anterior lower extremity ulcer Venous insufficiency of both lower extremities (Chronic) Other specified peripheral vascular diseases (Chronic) Ulcer of left lower extremity with fat layer exposed (Chronic) Delayed wound healing (Chronic) Maceration of skin (Chronic) Type 2 diabetes mellitus with diabetic peripheral angiopathy without gangrene (Chronic) Lymphedema in adult patient (Chronic) Noncompliance with treatment regimen (Chronic) Pulmonary nodules (Chronic) Obesity (BMI 30.0-34.9) (Chronic) 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) Thrombocytopenia (Chronic) - Past Surgical History Surgical History: coronary bypass surgery, - - Social History Smoking Status: Former smoker Alcohol: None Drugs: None - Family History Sibling Family History: Family History (Last Reviewed 07/30/18 @ 15:46 by Maria L Ortiz) Other CAD (coronary artery disease) History Items: Heart Disease Maternal Family History: Family History (Last Reviewed 07/30/18 @ 15:46 by Maria L Ortiz) Other CAD (coronary artery disease) History Items: No pertinent history Paternal Family History: Family History (Last Reviewed 07/30/18 @ 15:46 by Maria L Ortiz) Other CAD (coronary artery disease) History Items: No pertinent history Patient Problems: Active and Suspected Problems (Last Reviewed 07/30/18 @ 15:46 by Maria L Ortiz) Hypoxia (Acute) Change in mental status (Acute) Encephalopathy (Acute) Hyperkalemia (Acute) - Physical Exam General: Cooperative, Disoriented HEENT: Atraumatic Oral: Moist Mucosa Neck: Supple Lungs: Diminished Cardiovascular: Regular rate, Regular Rhythm, Normal S1, Normal S2 Abdomen: Bowel Sounds Present, Soft, Non Tender Extremities: Edema - Bilateral lower extremity erythema with +3 edema Musculoskeletal: No Muscle Wasting Lymphatic: No Cervical, Supraclavicular, or Inguinal Adenopathy Neurological: Neuro grossly intact Psych/Mental Status: Appropriate Vital Signs Temp Pulse Resp BP Pulse Ox 99.5 F H 95 18 147/51 H 98 09/25/18 18:00 09/25/18 18:00 09/25/18 18:00 09/25/18 18:00 09/25/18 18:00 Oxygen Flow Rate (L/min) 9 Oxygen Delivery Method Nasal Cannula Weight: 112.1 kg Body Mass Index (BMI) 37.5 Finger Stick Blood Glucose 74 Intake and Output for Last 24 Hours 09/23/18 09/24/18 09/25/18 23:59 23:59 23:59 Intake Total 693 / 693 Output Total 300 / 300 Balance 393 / 393 Microbiology Past 72 Hours 09/25/18 12:40 Legionella Antigen - Final Urine Catheter - Catheter 09/25/18 12:40 Streptococcus pneumoniae Antigen (M - Final Urine Catheter - Catheter 09/25/18 07:25 Respiratory Panel (PCR) - Final Mucosa - Nasopharyngeal Laboratory Tests Past 24 Hrs 09/24/18 09/24/18 09/24/18 19:08 19:08 19:08 WBC 9.9 RBC 3.26 L Hgb 9.9 L Hct 34.1 L MCV 104.6 H MCH 30.4 MCHC 29.0 L RDW 17.0 H RDW Differential 62.9 H Plt Count 150 MPV 10.6 Immature Gran % (Auto) 0.200 Neut % (Auto) 93.8 H Lymph % (Auto) 3.0 L [place] % (Auto) 2.5 Eos % (Auto) 0.4 Baso % (Auto) 0.1 Absolute Neuts (auto) 9.3 H Absolute Lymphs (auto) 0.30 L Total Counted Not Reportable Differential Comment SCANNED PT 15.5 H INR 1.3 APTT 28.6 Specimen Type Sample Site pH Bicarbonate Actual POC Total CO2 Base Excess O2 Saturation ABG pCO2 ABG pO2 Ray Test O2 Delivery Device Liter Flow Blood Gas Notified Whom Blood Gas Notified Time Sodium 146 H Potassium 6.2 H* Chloride 119 H Carbon Dioxide 22.0 Anion Gap 5 BUN 54 H Creatinine 1.86 H Estim Creat Clear Calc 29.61 Est GFR (MDRD) Af Amer 35 L Est GFR (MDRD) Non-Af 29 L BUN/Creatinine Ratio 29.0 H Glucose 72 L Lactic Acid Calcium 7.5 L Total Bilirubin 0.50 AST 26 ALT 28 Alkaline Phosphatase 130 H Ammonia Total Creatine Kinase 72 Troponin I 0.063 H B-Natriuretic Peptide Total Protein 5.3 L Albumin 2.2 L Globulin 3.1 Albumin/Globulin Ratio 0.7 L Urine Color Urine Clarity Urine pH Ur Specific [place] Urine Protein Urine Glucose (UA) Urine Ketones Urine Occult Blood Urine Nitrite Urine Bilirubin Urine Urobilinogen Ur Leukocyte Esterase Urine RBC Urine WBC Ur Squamous Epith Cells Calcium Oxalate Crystal Urine Bacteria Hyaline Casts Fine Granular Casts Urine Mucus MRSA (PCR) 09/24/18 09/24/18 09/24/18 19:08 19:56 20:13 WBC RBC Hgb Hct MCV MCH MCHC RDW RDW Differential Plt Count MPV Immature Gran % (Auto) Neut % (Auto) Lymph % (Auto) [place] % (Auto) Eos % (Auto) Baso % (Auto) Absolute Neuts (auto) Absolute Lymphs (auto) Total Counted Differential Comment PT INR APTT Specimen Type ART Sample Site L Radial pH 7.22 L Bicarbonate Actual 20.1 L POC Total CO2 22 Base Excess -8 L O2 Saturation 95 ABG pCO2 49.5 H ABG pO2 91 Ray Test POS O2 Delivery Device NRB Mask Liter Flow 15.0 Blood Gas Notified Whom ED Blood Gas Notified Time Sodium Potassium Chloride Carbon Dioxide Anion Gap BUN Creatinine Estim Creat Clear Calc Est GFR (MDRD) Af Amer Est GFR (MDRD) Non-Af BUN/Creatinine Ratio Glucose Lactic Acid 0.9 Calcium Total Bilirubin AST ALT Alkaline Phosphatase Ammonia 17.0 Total Creatine Kinase Troponin I B-Natriuretic Peptide Total Protein Albumin Globulin Albumin/Globulin Ratio Urine Color Urine Clarity Urine pH Ur Specific [place] Urine Protein Urine Glucose (UA) Urine Ketones Urine Occult Blood Urine Nitrite Urine Bilirubin Urine Urobilinogen Ur Leukocyte Esterase Urine RBC Urine WBC Ur Squamous Epith Cells Calcium Oxalate Crystal Urine Bacteria Hyaline Casts Fine Granular Casts Urine Mucus MRSA (PCR) 09/24/18 09/24/18 09/24/18 20:25 22:00 23:48 WBC RBC Hgb Hct MCV MCH MCHC RDW RDW Differential Plt Count MPV Immature Gran % (Auto) Neut % (Auto) Lymph % (Auto) [place] % (Auto) Eos % (Auto) Baso % (Auto) Absolute Neuts (auto) Absolute Lymphs (auto) Total Counted Differential Comment PT INR APTT Specimen Type ART Sample Site L Radial pH 7.16 L* Bicarbonate Actual 20.0 L POC Total CO2 22 Base Excess -9 L O2 Saturation 87 L ABG pCO2 56.6 H ABG pO2 68 L Ray Test NA O2 Delivery Device Nasal Can Liter Flow 12.0 Blood Gas Notified Whom ED MD Blood Gas Notified Time Sodium Potassium Chloride Carbon Dioxide Anion Gap BUN Creatinine Estim Creat Clear Calc Est GFR (MDRD) Af Amer Est GFR (MDRD) Non-Af BUN/Creatinine Ratio Glucose Lactic Acid 0.8 Calcium Total Bilirubin AST ALT Alkaline Phosphatase Ammonia Total Creatine Kinase Troponin I B-Natriuretic Peptide Total Protein Albumin Globulin Albumin/Globulin Ratio Urine Color [place] Urine Clarity Cloudy Urine pH 5.0 Ur Specific [place] 1.025 Urine Protein 500 H Urine Glucose (UA) Normal Urine Ketones 5 H Urine Occult Blood 10 H Urine Nitrite Negative Urine Bilirubin Negative Urine Urobilinogen 4 H Ur Leukocyte Esterase 25 H Urine RBC 0 SEEN Urine WBC 0-5 SEEN Ur Squamous Epith Cells 0 SEEN Calcium Oxalate Crystal RARE Urine Bacteria 0 SEEN Hyaline Casts 0-5 SEEN Fine Granular Casts 5-10 SEEN Urine Mucus 1+ MRSA (PCR) 09/25/18 09/25/18 09/25/18 04:30 04:30 04:30 WBC 8.9 RBC 3.32 L Hgb 9.9 L Hct 35.1 L MCV 105.7 H MCH 29.8 MCHC 28.2 L RDW 16.6 H RDW Differential 62.5 H Plt Count 134 L MPV 10.0 Immature Gran % (Auto) Neut % (Auto) Lymph % (Auto) [place] % (Auto) Eos % (Auto) Baso % (Auto) Absolute Neuts (auto) Absolute Lymphs (auto) Total Counted Differential Comment PT INR APTT Specimen Type Sample Site pH Bicarbonate Actual POC Total CO2 Base Excess O2 Saturation ABG pCO2 ABG pO2 Ray Test O2 Delivery Device Liter Flow Blood Gas Notified Whom Blood Gas Notified Time Sodium 148 H Potassium 5.9 H Chloride 121 H Carbon Dioxide 23.0 Anion Gap 4 L BUN 57 H Creatinine 2.15 H Estim Creat Clear Calc 25.61 Est GFR (MDRD) Af Amer 29 L Est GFR (MDRD) Non-Af 24 L BUN/Creatinine Ratio 26.5 H Glucose 114 H Lactic Acid Calcium 7.7 L Total Bilirubin AST ALT Alkaline Phosphatase Ammonia Total Creatine Kinase Troponin I B-Natriuretic Peptide 1913.0 H Total Protein Albumin Globulin Albumin/Globulin Ratio Urine Color Urine Clarity Urine pH Ur Specific [place] Urine Protein Urine Glucose (UA) Urine Ketones Urine Occult Blood Urine Nitrite Urine Bilirubin Urine Urobilinogen Ur Leukocyte Esterase Urine RBC Urine WBC Ur Squamous Epith Cells Calcium Oxalate Crystal Urine Bacteria Hyaline Casts Fine Granular Casts Urine Mucus MRSA (PCR) 09/25/18 09/25/18 09/25/18 04:30 05:24 09:00 WBC RBC Hgb Hct MCV MCH MCHC RDW RDW Differential Plt Count MPV Immature Gran % (Auto) Neut % (Auto) Lymph % (Auto) [place] % (Auto) Eos % (Auto) Baso % (Auto) Absolute Neuts (auto) Absolute Lymphs (auto) Total Counted Differential Comment PT INR APTT Specimen Type ART Sample Site L Radial pH 7.23 L Bicarbonate Actual 19.6 L POC Total CO2 21 Base Excess -8 L O2 Saturation 87 L ABG pCO2 47.0 H ABG pO2 64 L Ray Test POS O2 Delivery Device Nasal Can Liter Flow 8.0 Blood Gas Notified Whom ICU MD Blood Gas Notified Time 520 Sodium Potassium Chloride Carbon Dioxide Anion Gap BUN Creatinine Estim Creat Clear Calc Est GFR (MDRD) Af Amer Est GFR (MDRD) Non-Af BUN/Creatinine Ratio Glucose Lactic Acid Calcium Total Bilirubin AST ALT Alkaline Phosphatase Ammonia Total Creatine Kinase Troponin I 0.490 H B-Natriuretic Peptide Total Protein Albumin Globulin Albumin/Globulin Ratio Urine Color Urine Clarity Urine pH Ur Specific [place] Urine Protein Urine Glucose (UA) Urine Ketones Urine Occult Blood Urine Nitrite Urine Bilirubin Urine Urobilinogen Ur Leukocyte Esterase Urine RBC Urine WBC Ur Squamous Epith Cells Calcium Oxalate Crystal Urine Bacteria Hyaline Casts Fine Granular Casts Urine Mucus MRSA (PCR) POSITIVE H POC Glucose 09/25/18 09/24/18 09/24/18 16:12 21:58 20:29 POC Glucose 120 H 105 74 Assessment/Plan All Active Problems (Last Reviewed 07/30/18 @ 15:46 by Maria L Ortiz) Bilateral cellulitis of lower leg (Acute) Acute on chronic respiratory failure with hypoxemia (Acute) Flu-like symptoms (Acute) Hypoxia (Acute) Change in mental status (Acute) Encephalopathy (Acute) Hyperkalemia (Acute) BRBPR (bright red blood per rectum) (Resolved) C. difficile colitis (Resolved) Cholelithiasis (Resolved) Hyperkalemia (Resolved) 1-acute kidney injury most probably prerenal from worsening pulmonary hypertension due to hypoxemia. Creatinine is close to baseline. Please avoid diuretics and IV fluid for now. Continue to monitor renal function panel. Avoid CARLOS A inhibitor or ARB. No indication for hemodialysis. 2-hyperkalemia from acute kidney injury. Potassium 5.9. Patient was treated medically with D50 and insulin along with calcium gluconate. I will give the patient Kayexalate 30 g p.o. 1 time. I will check potassium in the morning. 3-acute respiratory failure from pneumonia and pulmonary hypertension. Pneumonia treatment as per the hospitalist service. Continue O2 support to maintain oxygen saturation more than 92%. 4-hypertension. Please avoid vasodilator with severe aortic stenosis. Avoid CARLOS A inhibitor or ARB Blood pressure is well controlled. Thank you for the consult. Renal team to continue to follow. Please call with any question at [phone] Lucina Moreno MD
[2018-09-25] MEDS: Sodium Polystyrene Sulfonate 15 GM/60 ML UDC 30 GM PO (20:07)
[2018-09-25] MEDS: Furosemide 40 MG/4 ML Vial IV (20:13)
[2018-09-25] MEDS: Acetaminophen 650 MG Suppository RECTAL (21:45)
[2018-09-26] VITALS (37 sets, daily range): BP systolic 116–151; BP diastolic 43–68; PULSE 80–109; RESP 12–34; TEMP 37.4–38.4; O2SAT 89–100
[2018-09-26] MEDS: Ipratropium/Albuterol Sulfate 3 ML AMPUL.NEB INHALATION ×3 (01:10→12:44)
[2018-09-26 01:41] LABS: Absolute Lymphocyte Count 0.22 X10^3/ul (0.83-4.51); Absolute Neutrophil Count 6.7 X10^3/uL (2.0-7.7); Basophil# 0.01 X10^3/uL; Basophil% 0.1 % (0-1); Eosinophil# 0.09 X10^3/uL; Eosinophils% 1.2 % (0-5); Hematocrit 32.1 % (37-47); Lymphocyte # 0.22 X10^3/ul (4.0); Mean Corpuscular Hgb 29.6 pg (27.0-32.0); Mean Corpuscular Volume 105.6 fL (81-99); Mean Platelet Vol. 9.6 fl (6.2-12.0); Monocyte# 0.31 X10^3/uL; Monocyte% 4.2 % (0-10); Neutrophil # 6.66 X10^3/uL (2.7-7.7); Neutrophil % 90.3 % (47-70); Platelet Count 106 K/mm3 (150-450); RBC Distribution Width CV 16.6 % (11.6-14.6); RBC Distribution Width SD 61.4 fl (35.1-43.9); Red Blood Count 3.04 M/mm3 (4.2-5.4); White Blood Count 7.4 K/mm3 (4.4-11.0)
[2018-09-26 01:44] LABS: Differential Indicated SCAN CRITERIA MET; POSITIVE COUNT NO; POSITIVE DIFFERENTIAL YES; POSITIVE MORPHOLOGY NO
[2018-09-26 01:49] LABS: Anion Gap 5 (5-15); BUN 59 mg/dL (7-18); BUN/Creat Ratio 25.5 RATIO (10-20); Calcium,Total 7.3 mg/dL (8.5-10.1); Chloride 122 mmol/L (98-107); Creatinine, Serum 2.31 mg/dL (0.55-1.02); EST Glomerular Filtration Rate 22 mL/min (>60); Est Glom Filt Rate - Afr Amer 27 mL/min (>60); Estimated Creatinine Clearance 23.84 ml/min; Glucose 100 mg/dL (74-106); Magnesium 1.7 mg/dL (1.6-2.6); Phosphorus 5.2 mg/dL (2.5-4.9); Potassium 5.6 mmol/L (3.5-5.1); Sodium Level 149 mmol/L (136-145)
--- NOTE | 2018-09-26 02:03 | EKG12_ITS ---
Test Reason : TACHYCARDIA Blood Pressure : / mmHG Vent. Rate : 104 BPM Atrial Rate : 104 BPM P-R Int : 116 ms QRS Dur : 066 ms QT Int : 298 ms P-R-T Axes : 047 016 174 degrees QTc Int : [address] & T wave abnormality, consider anterolateral ischemia Abnormal ECG Confirmed by VIOLETTE CHANCE, VIKTOR ([id number]), script editor FRANCIA HILLS ([id number]) on 10/04/2018 11:59:55 AM Referred By: Duc Echeverria Confirmed By:VIKTOR OAKES MD
--- NOTE | 2018-09-26 02:04 | EKG12_ITS ---
Test Reason : TACHYCARDIA Blood Pressure : / mmHG Vent. Rate : 154 BPM Atrial Rate : 154 BPM P-R Int : 104 ms QRS Dur : 072 ms QT Int : 270 ms P-R-T Axes : 157 022 184 degrees QTc Int : 432 ms Unusual P axis, possible ectopic atrial tachycardia ST & T wave abnormality, consider inferior ischemia ST & T wave abnormality, consider anterolateral ischemia Abnormal ECG Confirmed by VIOLETTE CHANCE, VIKTOR ([id number]), health editor FRANCIA HILLS ([id number]) on 10/04/2018 12:00:23 PM Referred By: Duc Echeverria Confirmed By:VIKTOR OAKES MD
[2018-09-26 02:16] LABS: Bedside Glucose 105 mg/dL (70-110)
[2018-09-26] MEDS: Sodium Polystyrene Sulfonate 15 GM/60 ML UDC 30 GM PO (02:38)
[2018-09-26] MEDS: Metoprolol Tartrate 50 MG Tablet PO ×3 (03:50→21:25)
[2018-09-26] MEDS: CHLORHEXIDINE GLUC 2% CLOTH 1 EACH TOWELETTE TOPICAL (03:52)
--- NOTE | 2018-09-26 05:00 | CT_ITS ---
STUDY: CT BRAIN WITHOUT CONTRAST REASON FOR EXAM: Female, 67 years old. Follow-up of altered mental status. RADIATION DOSAGE (If Supplied By Facility): CTDIvol = ( 44.99 ) mGy, DLP = ( 745.49 ) mGycm TECHNIQUE: Transaxial CT imaging of the brain was performed without administration of intravenous contrast material. Multiplanar reformations are submitted for interpretation. Individualized dose optimization techniques were used for this CT. COMPARISON: CT of the head dated September 24, 2018. FINDINGS: Normal soft tissue structures. Normal calvarium. Normal size ventricles and extra-axial spaces for the patient's age. There are areas of decreased attenuation within the white matter tracts of the supratentorial brain, consistent with microvascular disease changes. Normal basal ganglia and thalami. Normal brainstem. Normal cerebellum. There is no intracranial hemorrhage. There are no findings of an acute ischemic infarction. There is moderate mucoperiosteal thickening within the maxillary sinuses. There is a right frontal sinus mucous retention cyst versus polyp. There is patchy mucoperiosteal thickening within the ethmoid sinuses. There is a left maxillary mucous retention cysts. There is opacification of bilateral mastoid air cells similar to previous CT. There is also opacification of middle ear recesses suggestive of otitis media. CT/Brain/Head without Contrast IMPRESSION: 1. No CT evidence of acute intracranial hemorrhage. 2. Bilateral otomastoiditis. 3. Moderately severe paranasal sinus disease. Electronically Signed: Virginia Angel MD at 6:12 EDT , Service support ,
[2018-09-26 05:36] LABS: Allen Test POS; Base Excess -8 mmol/L (-2 to +2); Bicarbonate 19.9 mmol/L (22-26); Blood Gas Specimen Type ART; O2 Delivery Device Nasal Can; PO2 70 mmHG (75-100); SITE L Radial; SO2 89 % (95-99); Time Given 517; Total Carbon Dioxide 21 mmol/L; pCO2 52.7 mmHg (35-45); pH 7.19 (7.35-7.45)
--- NOTE | 2018-09-26 06:02 | CPS ---
Critical results read to Dr. Echeverria
[2018-09-26 06:05] LABS: Bedside Glucose 107 mg/dL (70-110)
--- NOTE | 2018-09-26 06:10 | PCM.PN.INT ---
Subjective: The patient was seen and examined at the bedside this morning. Events from the last 24 hours have been reviewed. The patient currently has a low-grade fever but was febrile overnight with a T-max of 38.8 ?C. Nevertheless, the patient remains hemodynamically stable. The patient did have to be placed on BiPAP this morning after an arterial blood gas was obtained which revealed a pH of 7.19 with a corresponding PCO2 of 53 and PO2 of 70. She currently has a pressure support setting of 16/8 with 50% FiO2. She has only been on BiPAP now for approximately 1 hour. The patient reports feeling nauseated with abdominal pain this morning. Objective: The patient's most recent lab work, culture data and imaging studies have all been personally reviewed. Strep and urine Legionella antigens were both negative. Respiratory viral panel was negative. Blood and urine cultures are pending. CT chest revealed diffuse bilateral infiltrates along with basilar consolidation and bilateral pleural effusions. Surface echocardiogram revealed normal LV size and function with an ejection fraction of 65%. There was evidence of mild mitral valve stenosis along with moderate to severe aortic valve stenosis. Right ventricular systolic pressure was estimated to be 94 mmHg. General: Alert, Cooperative, - - Currently tolerating BiPAP without issue. HEENT: Atraumatic, PERRLA, Normocephalic Oral: Dry Mucosa Neck: Supple, No Nodes, Trachea Midline Lungs: No rhonchi, No wheeze, Diminished, Rales Cardiovascular: Regular rate, Regular Rhythm, Normal S1, Normal S2, Murmur Abdomen: Bowel Sounds Present, Soft, Obese, - - Mild, nonfocal tenderness to palpation Extremities: No clubbing, No cyanosis, Edema Skin: - - Lower extremity erythema/cellulitis. Wrapped lower extremities Musculoskeletal: No Muscle Wasting Lymphatic: No Cervical, Supraclavicular, or Inguinal Adenopathy Neurological: Cranial nerves II-XII grossly intact, - - No focal neurological deficits. Vital Signs Temp Pulse Resp BP Pulse Ox 37.7 C H 85 22 H 147/53 H 94 09/26/18 04:00 09/26/18 05:50 09/26/18 05:50 09/26/18 04:00 09/26/18 05:50 Oxygen Flow Rate (L/min) 9 Oxygen Delivery Method Nasal Cannula Weight: 247 lb 2.211 oz Body Mass Index (BMI) 37.5 Finger Stick Blood Glucose 74 Intake and Output for Last 24 Hours 09/24/18 09/25/18 09/26/18 23:59 23:59 23:59 Intake Total 693 / 693 1066.6 / 1066.6 Output Total 300 / 300 950 / 950 Balance 393 / 393 116.6 / 116.6 Labs (Last 48 Hours) 09/24/18 09/24/18 09/24/18 19:08 19:08 19:08 WBC 9.9 RBC 3.26 L Hgb 9.9 L Hct 34.1 L MCV 104.6 H MCH 30.4 MCHC 29.0 L RDW 17.0 H RDW Differential 62.9 H Plt Count 150 MPV 10.6 Immature Gran % (Auto) 0.200 Neut % (Auto) 93.8 H Lymph % (Auto) 3.0 L [place] % (Auto) 2.5 Eos % (Auto) 0.4 Baso % (Auto) 0.1 Absolute Neuts (auto) 9.3 H Absolute Lymphs (auto) 0.30 L Total Counted Not Reportable Differential Comment SCANNED PT 15.5 H INR 1.3 APTT 28.6 Specimen Type Sample Site pH Bicarbonate Actual POC Total CO2 Base Excess O2 Saturation ABG pCO2 ABG pO2 Ray Test O2 Delivery Device Liter Flow Blood Gas Notified Whom Blood Gas Notified Time Sodium 146 H Potassium 6.2 H* Chloride 119 H Carbon Dioxide 22.0 Anion Gap 5 BUN 54 H Creatinine 1.86 H Estim Creat Clear Calc 29.61 Est GFR (MDRD) Af Amer 35 L Est GFR (MDRD) Non-Af 29 L BUN/Creatinine Ratio 29.0 H Glucose 72 L Lactic Acid Calcium 7.5 L Phosphorus Magnesium Total Bilirubin 0.50 AST 26 ALT 28 Alkaline Phosphatase 130 H Ammonia Total Creatine Kinase 72 Troponin I 0.063 H B-Natriuretic Peptide Total Protein 5.3 L Albumin 2.2 L Globulin 3.1 Albumin/Globulin Ratio 0.7 L Urine Color Urine Clarity Urine pH Ur Specific [place] Urine Protein Urine Glucose (UA) Urine Ketones Urine Occult Blood Urine Nitrite Urine Bilirubin Urine Urobilinogen Ur Leukocyte Esterase Urine RBC Urine WBC Ur Squamous Epith Cells Calcium Oxalate Crystal Urine Bacteria Hyaline Casts Fine Granular Casts Urine Mucus MRSA (PCR) POC Glucose 09/24/18 09/24/18 09/24/18 19:08 19:56 20:13 WBC RBC Hgb Hct MCV MCH MCHC RDW RDW Differential Plt Count MPV Immature Gran % (Auto) Neut % (Auto) Lymph % (Auto) [place] % (Auto) Eos % (Auto) Baso % (Auto) Absolute Neuts (auto) Absolute Lymphs (auto) Total Counted Differential Comment PT INR APTT Specimen Type ART Sample Site L Radial pH 7.22 L Bicarbonate Actual 20.1 L POC Total CO2 22 Base Excess -8 L O2 Saturation 95 ABG pCO2 49.5 H ABG pO2 91 Ray Test POS O2 Delivery Device NRB Mask Liter Flow 15.0 Blood Gas Notified Whom ED MD Blood Gas Notified Time Sodium Potassium Chloride Carbon Dioxide Anion Gap BUN Creatinine Estim Creat Clear Calc Est GFR (MDRD) Af Amer Est GFR (MDRD) Non-Af BUN/Creatinine Ratio Glucose Lactic Acid 0.9 Calcium Phosphorus Magnesium Total Bilirubin AST ALT Alkaline Phosphatase Ammonia 17.0 Total Creatine Kinase Troponin I B-Natriuretic Peptide Total Protein Albumin Globulin Albumin/Globulin Ratio Urine Color Urine Clarity Urine pH Ur Specific [place] Urine Protein Urine Glucose (UA) Urine Ketones Urine Occult Blood Urine Nitrite Urine Bilirubin Urine Urobilinogen Ur Leukocyte Esterase Urine RBC Urine WBC Ur Squamous Epith Cells Calcium Oxalate Crystal Urine Bacteria Hyaline Casts Fine Granular Casts Urine Mucus MRSA (PCR) POC Glucose 09/24/18 09/24/18 09/24/18 20:25 20:29 21:58 WBC RBC Hgb Hct MCV MCH MCHC RDW RDW Differential Plt Count MPV Immature Gran % (Auto) Neut % (Auto) Lymph % (Auto) [place] % (Auto) Eos % (Auto) Baso % (Auto) Absolute Neuts (auto) Absolute Lymphs (auto) Total Counted Differential Comment PT INR APTT Specimen Type Sample Site pH Bicarbonate Actual POC Total CO2 Base Excess O2 Saturation ABG pCO2 ABG pO2 Ray Test O2 Delivery Device Liter Flow Blood Gas Notified Whom Blood Gas Notified Time Sodium Potassium Chloride Carbon Dioxide Anion Gap BUN Creatinine Estim Creat Clear Calc Est GFR (MDRD) Af Amer Est GFR (MDRD) Non-Af BUN/Creatinine Ratio Glucose Lactic Acid Calcium Phosphorus Magnesium Total Bilirubin AST ALT Alkaline Phosphatase Ammonia Total Creatine Kinase Troponin I B-Natriuretic Peptide Total Protein Albumin Globulin Albumin/Globulin Ratio Urine Color Kenisha Urine Clarity Cloudy Urine pH 5.0 Ur Specific [place] 1.025 Urine Protein 500 H Urine Glucose (UA) Normal Urine Ketones 5 H Urine Occult Blood 10 H Urine Nitrite Negative Urine Bilirubin Negative Urine Urobilinogen 4 H Ur Leukocyte Esterase 25 H Urine RBC 0 SEEN Urine WBC 0-5 SEEN Ur Squamous Epith Cells 0 SEEN Calcium Oxalate Crystal RARE Urine Bacteria 0 SEEN Hyaline Casts 0-5 SEEN Fine Granular Casts 5-10 SEEN Urine Mucus 1+ MRSA (PCR) POC Glucose 74 105 09/24/18 09/24/18 09/25/18 22:00 23:48 04:30 WBC 8.9 RBC 3.32 L Hgb 9.9 L Hct 35.1 L MCV 105.7 H MCH 29.8 MCHC 28.2 L RDW 16.6 H RDW Differential 62.5 H Plt Count 134 L MPV 10.0 Immature Gran % (Auto) Neut % (Auto) Lymph % (Auto) [place] % (Auto) Eos % (Auto) Baso % (Auto) Absolute Neuts (auto) Absolute Lymphs (auto) Total Counted Differential Comment PT INR APTT Specimen Type ART Sample Site L Radial pH 7.16 L* Bicarbonate Actual 20.0 L POC Total CO2 22 Base Excess -9 L O2 Saturation 87 L ABG pCO2 56.6 H ABG pO2 68 L Ray Test NA O2 Delivery Device Nasal Can Liter Flow 12.0 Blood Gas Notified Whom ED MD Blood Gas Notified Time Sodium Potassium Chloride Carbon Dioxide Anion Gap BUN Creatinine Estim Creat Clear Calc Est GFR (MDRD) Af Amer Est GFR (MDRD) Non-Af BUN/Creatinine Ratio Glucose Lactic Acid 0.8 Calcium Phosphorus Magnesium Total Bilirubin AST ALT Alkaline Phosphatase Ammonia Total Creatine Kinase Troponin I B-Natriuretic Peptide Total Protein Albumin Globulin Albumin/Globulin Ratio Urine Color Urine Clarity Urine pH Ur Specific [place] Urine Protein Urine Glucose (UA) Urine Ketones Urine Occult Blood Urine Nitrite Urine Bilirubin Urine Urobilinogen Ur Leukocyte Esterase Urine RBC Urine WBC Ur Squamous Epith Cells Calcium Oxalate Crystal Urine Bacteria Hyaline Casts Fine Granular Casts Urine Mucus MRSA (PCR) POC Glucose 09/25/18 09/25/18 09/25/18 04:30 04:30 04:30 WBC RBC Hgb Hct MCV MCH MCHC RDW RDW Differential Plt Count MPV Immature Gran % (Auto) Neut % (Auto) Lymph % (Auto) [place] % (Auto) Eos % (Auto) Baso % (Auto) Absolute Neuts (auto) Absolute Lymphs (auto) Total Counted Differential Comment PT INR APTT Specimen Type Sample Site pH Bicarbonate Actual POC Total CO2 Base Excess O2 Saturation ABG pCO2 ABG pO2 Ray Test O2 Delivery Device Liter Flow Blood Gas Notified Whom Blood Gas Notified Time Sodium 148 H Potassium 5.9 H Chloride 121 H Carbon Dioxide 23.0 Anion Gap 4 L BUN 57 H Creatinine 2.15 H Estim Creat Clear Calc 25.61 Est GFR (MDRD) Af Amer 29 L Est GFR (MDRD) Non-Af 24 L BUN/Creatinine Ratio 26.5 H Glucose 114 H Lactic Acid Calcium 7.7 L Phosphorus Magnesium Total Bilirubin AST ALT Alkaline Phosphatase Ammonia Total Creatine Kinase Troponin I 0.490 H B-Natriuretic Peptide 1913.0 H Total Protein Albumin Globulin Albumin/Globulin Ratio Urine Color Urine Clarity Urine pH Ur Specific [place] Urine Protein Urine Glucose (UA) Urine Ketones Urine Occult Blood Urine Nitrite Urine Bilirubin Urine Urobilinogen Ur Leukocyte Esterase Urine RBC Urine WBC Ur Squamous Epith Cells Calcium Oxalate Crystal Urine Bacteria Hyaline Casts Fine Granular Casts Urine Mucus MRSA (PCR) POC Glucose 09/25/18 09/25/18 09/25/18 05:24 09:00 16:12 WBC RBC Hgb Hct MCV MCH MCHC RDW RDW Differential Plt Count MPV Immature Gran % (Auto) Neut % (Auto) Lymph % (Auto) [place] % (Auto) Eos % (Auto) Baso % (Auto) Absolute Neuts (auto) Absolute Lymphs (auto) Total Counted Differential Comment PT INR APTT Specimen Type ART Sample Site L Radial pH 7.23 L Bicarbonate Actual 19.6 L POC Total CO2 21 Base Excess -8 L O2 Saturation 87 L ABG pCO2 47.0 H ABG pO2 64 L Ray Test POS O2 Delivery Device Nasal Can Liter Flow 8.0 Blood Gas Notified Whom ICU MD Blood Gas Notified Time 520 Sodium Potassium Chloride Carbon Dioxide Anion Gap BUN Creatinine Estim Creat Clear Calc Est GFR (MDRD) Af Amer Est GFR (MDRD) Non-Af BUN/Creatinine Ratio Glucose Lactic Acid Calcium Phosphorus Magnesium Total Bilirubin AST ALT Alkaline Phosphatase Ammonia Total Creatine Kinase Troponin I B-Natriuretic Peptide Total Protein Albumin Globulin Albumin/Globulin Ratio Urine Color Urine Clarity Urine pH Ur Specific [place] Urine Protein Urine Glucose (UA) Urine Ketones Urine Occult Blood Urine Nitrite Urine Bilirubin Urine Urobilinogen Ur Leukocyte Esterase Urine RBC Urine WBC Ur Squamous Epith Cells Calcium Oxalate Crystal Urine Bacteria Hyaline Casts Fine Granular Casts Urine Mucus MRSA (PCR) POSITIVE H POC Glucose 120 H 03/31/19 03/31/19 03/31/19 00:03 01:25 01:25 WBC 7.4 RBC 3.04 L Hgb 9.0 L Hct 32.1 L MCV 105.6 H MCH 29.6 MCHC 28.0 L RDW 16.6 H RDW Differential 61.4 H Plt Count 106 L MPV 9.6 Immature Gran % (Auto) 1.200 H Neut % (Auto) 90.3 H Lymph % (Auto) 3.0 L [place] % (Auto) 4.2 Eos % (Auto) 1.2 Baso % (Auto) 0.1 Absolute Neuts (auto) 6.7 Absolute Lymphs (auto) 0.22 L Total Counted Not Reportable Differential Comment PT INR APTT Specimen Type Sample Site pH Bicarbonate Actual POC Total CO2 Base Excess O2 Saturation ABG pCO2 ABG pO2 Ray Test O2 Delivery Device Liter Flow Blood Gas Notified Whom Blood Gas Notified Time Sodium 149 H Potassium 5.6 H Chloride 122 H Carbon Dioxide 22.0 Anion Gap 5 BUN 59 H Creatinine 2.31 H Estim Creat Clear Calc 23.84 Est GFR (MDRD) Af Amer 27 L Est GFR (MDRD) Non-Af 22 L BUN/Creatinine Ratio 25.5 H Glucose 100 Lactic Acid Calcium 7.3 L Phosphorus 5.2 H Magnesium 1.7 Total Bilirubin AST ALT Alkaline Phosphatase Ammonia Total Creatine Kinase Troponin I B-Natriuretic Peptide Total Protein Albumin Globulin Albumin/Globulin Ratio Urine Color Urine Clarity Urine pH Ur Specific [place] Urine Protein Urine Glucose (UA) Urine Ketones Urine Occult Blood Urine Nitrite Urine Bilirubin Urine Urobilinogen Ur Leukocyte Esterase Urine RBC Urine WBC Ur Squamous Epith Cells Calcium Oxalate Crystal Urine Bacteria Hyaline Casts Fine Granular Casts Urine Mucus MRSA (PCR) POC Glucose 105 09/26/18 09/26/18 05:23 05:54 WBC RBC Hgb Hct MCV MCH MCHC RDW RDW Differential Plt Count MPV Immature Gran % (Auto) Neut % (Auto) Lymph % (Auto) [place] % (Auto) Eos % (Auto) Baso % (Auto) Absolute Neuts (auto) Absolute Lymphs (auto) Total Counted Differential Comment PT INR APTT Specimen Type ART Sample Site L Radial pH 7.19 L* Bicarbonate Actual 19.9 L POC Total CO2 21 Base Excess -8 L O2 Saturation 89 L ABG pCO2 52.7 H ABG pO2 70 L Ray Test POS O2 Delivery Device Nasal Can Liter Flow 9.0 Blood Gas Notified Whom [facility] Blood Gas Notified Time 517 Sodium Potassium Chloride Carbon Dioxide Anion Gap BUN Creatinine Estim Creat Clear Calc Est GFR (MDRD) Af Amer Est GFR (MDRD) Non-Af BUN/Creatinine Ratio Glucose Lactic Acid Calcium Phosphorus Magnesium Total Bilirubin AST ALT Alkaline Phosphatase Ammonia Total Creatine Kinase Troponin I B-Natriuretic Peptide Total Protein Albumin Globulin Albumin/Globulin Ratio Urine Color Urine Clarity Urine pH Ur Specific [place] Urine Protein Urine Glucose (UA) Urine Ketones Urine Occult Blood Urine Nitrite Urine Bilirubin Urine Urobilinogen Ur Leukocyte Esterase Urine RBC Urine WBC Ur Squamous Epith Cells Calcium Oxalate Crystal Urine Bacteria Hyaline Casts Fine Granular Casts Urine Mucus MRSA (PCR) POC Glucose 107 Microbiology 09/25/18 12:40 Urine Catheter - Catheter Legionella Antigen - Final 09/25/18 12:40 Urine Catheter - Catheter Streptococcus pneumoniae Antigen (M - Final 09/25/18 07:25 Mucosa - Nasopharyngeal Respiratory Panel (PCR) - Final Clinical Impression(s) from Imaging Studies Chest X-Ray 09/24/18 19:55 IMPRESSION: Poor inspiration. Right lower lung field infiltrate and/or atelectasis. Increased pulmonic density also noted in the left perihilar area. These abnormalities represent new interval findings. Mild cardiomegaly. Status post sternotomy. Electronically Signed: Tristne Coronel MD at 21:35 EDT , Service support , Brain CT 09/24/18 21:48 IMPRESSION: Worsening right frontoparietal deep white matter ischemia which may be progression of old changes however new infarct cannot be excluded. MRI brain follow-up is recommended. Bilateral deep white matter old small vessel ischemic changes as well Inflammatory changes paranasal sinuses Bilateral mastoid effusions Electronically Signed: Gregory Gordon at 23:45 EDT Tel , Service support , Chest X-Ray 09/25/18 08:04 IMPRESSION: Worsening CHF Electronically Signed: Chilo Whitaker DO at 9:21 EDT Tel , Service support , Chest CT 09/25/18 08:13 IMPRESSION: 1. Diffuse bilateral pneumonic infiltrates with associated bibasilar consolidation and small to moderate-sized bilateral pleural effusions, right greater than left. 2. Reactive mediastinal and hilar lymph nodes. 3. Mild cardiomegaly. 4. Perihepatic and perisplenic ascites. Electronically Signed: Rashaad Doty MD at 5:00 EDT Tel , Service support , Medical Necessity - Tobacco Use Smoking Status: Former smoker Tobacco Use: Non-smoker Assessment/Plan All Active Problems (Last Reviewed 07/30/18 @ 15:46 by Maria L Ortiz) Bilateral cellulitis of lower leg (Acute) Acute on chronic respiratory failure with hypoxemia (Acute) Flu-like symptoms (Acute) Hypoxia (Acute) Change in mental status (Acute) Encephalopathy (Acute) Hyperkalemia (Acute) BRBPR (bright red blood per rectum) (Resolved) C. difficile colitis (Resolved) Cholelithiasis (Resolved) Hyperkalemia (Resolved) RECOMMENDATIONS: 1. Continue BiPAP therapy. Wean as tolerated. 2. Recheck liver function profile and lipase level. 3. Continue broad-spectrum antimicrobial coverage. 4. Repeat CT head this morning. 5. Continue appropriate ICU prophylaxis. 6. Physical therapy to work with the patient. IMPRESSIONS: 1. Acute hypoxemic and hypercarbic respiratory failure with concerns for underlying healthcare associated pneumonia The patient does have radiographic evidence of an underlying pulmonary infectious process. Continue broad-spectrum antimicrobials as ordered. Wean supplemental oxygen to maintain saturations at or above 90%. Given the patient's elevated troponin and BNP level, I am also concerned for potential CHF exacerbation. The patient surface echocardiogram did reveal evidence of diastolic dysfunction along with aortic valve stenosis and significant pulmonary hypertension. I do suspect that she would benefit from volume optimization. However, nephrology has been reluctant to utilize diuretics, given the patient's renal insufficiency. The patient will be weaned from BiPAP as tolerated. 2. Abnormal CT head Initial CT head revealed white matter ischemic changes of unclear chronicity. Neurology is currently following. Repeat head CT is scheduled for this morning. 3. Encephalopathy Improved. Likely metabolic in nature. As noted above, repeat head CT is scheduled for this morning. 4. Troponin elevation/underlying heart failure with preserved ejection fraction/aortic valve stenosis/coronary artery disease Likely secondary to demand ischemia in the setting of #1. Cautious use of supplemental IV fluids, given valvular stenosis, pulmonary hypertension and diastolic dysfunction. 5. Acute on chronic kidney disease/hyperkalemia Nephrology consultation is currently pending. No current indication for renal replacement therapy. Continue medical management of the patient's elevated potassium level. 6. Obesity/hyperlipidemia/hypertension/diabetes/lower extremity cellulitis Complicates care, management, recovery and prognosis. The patient's diet can be advanced if she is able to be maintained off of BiPAP therapy today. TIME: 40 minutes of critical care time, independent of procedures, was spent addressing the patient's acute hypoxemic and hypercarbic respiratory failure, healthcare associated pneumonia, encephalopathy, abnormal CT head, troponin elevation, aortic valve stenosis, acute on chronic kidney disease, review of all data and collaboration with the care team. ([id number]) Code Visit [id number]: [id number] Critical care first hour
--- NOTE | 2018-09-26 06:13 | PN_ITS ---
Subjective: The patient was seen and examined at the bedside this morning. Events from the last 24 hours have been reviewed. The patient currently has a low-grade fever but was febrile overnight with a T-max of 38.8 ?C. Nevertheless, the patient remains hemodynamically stable. The patient did have to be placed on BiPAP this morning after an arterial blood gas was obtained which revealed a pH of 7.19 with a corresponding PCO2 of 53 and PO2 of 70. She currently has a pressure support setting of 16/8 with 50% FiO2. She has only been on BiPAP now for ap proximately 1 hour. The patient reports feeling nauseated with abdominal pain this morning. Objective: The patient's most recent lab work, culture data and imaging studies have all been personally reviewed. Strep and urine Legionella antigens were both negative. Respiratory viral panel was negative. Blood and urine cultures are pending. CT chest revealed diffuse bilateral infiltrates along with basilar consolidation and bilateral pleural effusions. Surface echocardiogram revealed normal LV size and function with an ejection fraction of 65%. There was evidence of mild mitral valve stenosis along with moderate to severe aortic valve stenosis. Right ventricular systolic pressure was estimated to be 94 mmHg. General: Alert, Cooperative, - - Currently tolerating BiPAP without issue. HEENT: Atraumatic, PERRLA, Normocephalic Oral: Dry Mucosa Neck: Supple, No Nodes, Trachea Midline Lungs: No rhonchi, No wheeze, Diminished, Rales Cardiovascular: Regular rate, Regular Rhythm, Normal S1, Normal S2, Murmur Abdomen: Bowel Sounds Present, Soft, Obese, - - Mild, nonfocal tenderness to palpation Extremities: No clubbing, No cyanosis, Edema Skin: - - Lower extremity erythema/cellulitis. Wrapped lower extremities Musculoskeletal: No Muscle Wasting Lymphatic: No Cervical, Supraclavicular, or Inguinal Adenopathy Neurological: Cranial nerves II-XII grossly intact, - - No focal neurological deficits. Vital Signs Temp Pulse Resp BP Pulse Ox 37.7 C H 85 22 H 147/53 H 94 09/26/18 04:00 09/26/18 05:50 09/26/18 05:50 09/26/18 04:00 09/26/18 05:50 Oxygen Flow Rate (L/min) 9 Oxygen Delivery Method Nasal Cannula Weight: 247 lb 2.211 oz Body Mass Index (BMI) 37.5 Finger Stick Blood Glucose 74 Intake and Output for Last 24 Hours 09/24/18 09/25/18 09/26/18 23:59 23:59 23:59 Intake Total 693 / 693 1066.6 / 1066.6 Output Total 300 / 300 950 / 950 Balance 393 / 393 116.6 / 116.6 Labs (Last 48 Hours) 09/24/18 09/24/18 09/24/18 19:08 19:08 19:08 WBC 9.9 RBC 3.26 L Hgb 9.9 L Hct 34.1 L MCV 104.6 H MCH 30.4 MCHC 29.0 L RDW 17.0 H RDW Differential 62.9 H Plt Count 150 MPV 10.6 Immature Gran % (Auto) 0.200 Neut % (Auto) 93.8 H Lymph % (Auto) 3.0 L [place] % (Auto) 2.5 Eos % (Auto) 0.4 Baso % (Auto) 0.1 Absolute Neuts (auto) 9.3 H Absolute Lymphs (auto) 0.30 L Total Counted Not Reportable Differential Comment SCANNED PT 15.5 H INR 1.3 APTT 28.6 Specimen Type Sample Site pH Bicarbonate Actual POC Total CO2 Base Excess O2 Saturation ABG pCO2 ABG pO2 Ray Test O2 Delivery Device Liter Flow Blood Gas Notified Whom Blood Gas Notified Time Sodium 146 H Potassium 6.2 H* Chloride 119 H Carbon Dioxide 22.0 Anion Gap 5 BUN 54 H Creatinine 1.86 H Estim Creat Clear Calc 29.61 Est GFR (MDRD) Af Amer 35 L Est GFR (MDRD) Non-Af 29 L BUN/Creatinine Ratio 29.0 H Glucose 72 L Lactic Acid Calcium 7.5 L Phosphorus Magnesium Total Bilirubin 0.50 AST 26 ALT 28 Alkaline Phosphatase 130 H Ammonia Total Creatine Kinase 72 Troponin I 0.063 H B-Natriuretic Peptide Total Protein 5.3 L Albumin 2.2 L Globulin 3.1 Albumin/Globulin Ratio 0.7 L Urine Color Urine Clarity Urine pH Ur Specific [place] Urine Protein Urine Glucose (UA) Urine Ketones Urine Occult Blood Urine Nitrite Urine Bilirubin Urine Urobilinogen Ur Leukocyte Esterase Urine RBC Urine WBC Ur Squamous Epith Cells Calcium Oxalate Crystal Urine Bacteria Hyaline Casts Fine Granular Casts Urine Mucus MRSA (PCR) POC Glucose 09/24/18 09/24/18 09/24/18 19:08 19:56 20:13 WBC RBC Hgb Hct MCV MCH MCHC RDW RDW Differential Plt Count MPV Immature Gran % (Auto) Neut % (Auto) Lymph % (Auto) [place] % (Auto) Eos % (Auto) Baso % (Auto) Absolute Neuts (auto) Absolute Lymphs (auto) Total Counted Differential Comment PT INR APTT Specimen Type ART Sample Site L Radial pH 7.22 L Bicarbonate Actual 20.1 L POC Total CO2 22 Base Excess -8 L O2 Saturation 95 ABG pCO2 49.5 H ABG pO2 91 Ray Test POS O2 Delivery Device NRB Mask Liter Flow 15.0 Blood Gas Notified Whom ED MD Blood Gas Notified Time Sodium Potassium Chloride Carbon Dioxide Anion Gap BUN Creatinine Estim Creat Clear Calc Est GFR (MDRD) Af Amer Est GFR (MDRD) Non-Af BUN/Creatinine Ratio Glucose Lactic Acid 0.9 Calcium Phosphorus Magnesium Total Bilirubin AST ALT Alkaline Phosphatase Ammonia 17.0 Total Creatine Kinase Troponin I B-Natriuretic Peptide Total Protein Albumin Globulin Albumin/Globulin Ratio Urine Color Urine Clarity Urine pH Ur Specific [place] Urine Protein Urine Glucose (UA) Urine Ketones Urine Occult Blood Urine Nitrite Urine Bilirubin Urine Urobilinogen Ur Leukocyte Esterase Urine RBC Urine WBC Ur Squamous Epith Cells Calcium Oxalate Crystal Urine Bacteria Hyaline Casts Fine Granular Casts Urine Mucus MRSA (PCR) POC Glucose 09/24/18 09/24/18 09/24/18 20:25 20:29 21:58 WBC RBC Hgb Hct MCV MCH MCHC RDW RDW Differential Plt Count MPV Immature Gran % (Auto) Neut % (Auto) Lymph % (Auto) [place] % (Auto) Eos % (Auto) Baso % (Auto) Absolute Neuts (auto) Absolute Lymphs (auto) Total Counted Differential Comment PT INR APTT Specimen Type Sample Site pH Bicarbonate Actual POC Total CO2 Base Excess O2 Saturation ABG pCO2 ABG pO2 Ray Test O2 Delivery Device Liter Flow Blood Gas Notified Whom Blood Gas Notified Time Sodium Potassium Chloride Carbon Dioxide Anion Gap BUN Creatinine Estim Creat Clear Calc Est GFR (MDRD) Af Amer Est GFR (MDRD) Non-Af BUN/Creatinine Ratio Glucose Lactic Acid Calcium Phosphorus Magnesium Total Bilirubin AST ALT Alkaline Phosphatase Ammonia Total Creatine Kinase Troponin I B-Natriuretic Peptide Total Protein Albumin Globulin Albumin/Globulin Ratio Urine Color Kenisha Urine Clarity Cloudy Urine pH 5.0 Ur Specific [place] 1.025 Urine Protein 500 H Urine Glucose (UA) Normal Urine Ketones 5 H Urine Occult Blood 10 H Urine Nitrite Negative Urine Bilirubin Negative Urine Urobilinogen 4 H Ur Leukocyte Esterase 25 H Urine RBC 0 SEEN Urine WBC 0-5 SEEN Ur Squamous Epith Cells 0 SEEN Calcium Oxalate Crystal RARE Urine Bacteria 0 SEEN Hyaline Casts 0-5 SEEN Fine Granular Casts 5-10 SEEN Urine Mucus 1+ MRSA (PCR) POC Glucose 74 105 09/24/18 09/24/18 09/25/18 22:00 23:48 04:30 WBC 8.9 RBC 3.32 L Hgb 9.9 L Hct 35.1 L MCV 105.7 H MCH 29.8 MCHC 28.2 L RDW 16.6 H RDW Differential 62.5 H Plt Count 134 L MPV 10.0 Immature Gran % (Auto) Neut % (Auto) Lymph % (Auto) [place] % (Auto) Eos % (Auto) Baso % (Auto) Absolute Neuts (auto) Absolute Lymphs (auto) Total Counted Differential Comment PT INR APTT Specimen Type ART Sample Site L Radial pH 7.16 L* Bicarbonate Actual 20.0 L POC Total CO2 22 Base Excess -9 L O2 Saturation 87 L ABG pCO2 56.6 H ABG pO2 68 L Ray Test NA O2 Delivery Device Nasal Can Liter Flow 12.0 Blood Gas Notified Whom ED MD Blood Gas Notified Time Sodium Potassium Chloride Carbon Dioxide Anion Gap BUN Creatinine Estim Creat Clear Calc Est GFR (MDRD) Af Amer Est GFR (MDRD) Non-Af BUN/Creatinine Ratio Glucose Lactic Acid 0.8 Calcium Phosphorus Magnesium Total Bilirubin AST ALT Alkaline Phosphatase Ammonia Total Creatine Kinase Troponin I B-Natriuretic Peptide Total Protein Albumin Globulin Albumin/Globulin Ratio Urine Color Urine Clarity Urine pH Ur Specific [place] Urine Protein Urine Glucose (UA) Urine Ketones Urine Occult Blood Urine Nitrite Urine Bilirubin Urine Urobilinogen Ur Leukocyte Esterase Urine RBC Urine WBC Ur Squamous Epith Cells Calcium Oxalate Crystal Urine Bacteria Hyaline Casts Fine Granular Casts Urine Mucus MRSA (PCR) POC Glucose 09/25/18 09/25/18 09/25/18 04:30 04:30 04:30 WBC RBC Hgb Hct MCV MCH MCHC RDW RDW Differential Plt Count MPV Immature Gran % (Auto) Neut % (Auto) Lymph % (Auto) [place] % (Auto) Eos % (Auto) Baso % (Auto) Absolute Neuts (auto) Absolute Lymphs (auto) Total Counted Differential Comment PT INR APTT Specimen Type Sample Site pH Bicarbonate Actual POC Total CO2 Base Excess O2 Saturation ABG pCO2 ABG pO2 Ray Test O2 Delivery Device Liter Flow Blood Gas Notified Whom Blood Gas Notified Time Sodium 148 H Potassium 5.9 H Chloride 121 H Carbon Dioxide 23.0 Anion Gap 4 L BUN 57 H Creatinine 2.15 H Estim Creat Clear Calc 25.61 Est GFR (MDRD) Af Amer 29 L Est GFR (MDRD) Non-Af 24 L BUN/Creatinine Ratio 26.5 H Glucose 114 H Lactic Acid Calcium 7.7 L Phosphorus Magnesium Total Bilirubin AST ALT Alkaline Phosphatase Ammonia Total Creatine Kinase Troponin I 0.490 H B-Natriuretic Peptide 1913.0 H Total Protein Albumin Globulin Albumin/Globulin Ratio Urine Color Urine Clarity Urine pH Ur Specific [place] Urine Protein Urine Glucose (UA) Urine Ketones Urine Occult Blood Urine Nitrite Urine Bilirubin Urine Urobilinogen Ur Leukocyte Esterase Urine RBC Urine WBC Ur Squamous Epith Cells Calcium Oxalate Crystal Urine Bacteria Hyaline Casts Fine Granular Casts Urine Mucus MRSA (PCR) POC Glucose 09/25/18 09/25/18 09/25/18 05:24 09:00 16:12 WBC RBC Hgb Hct MCV MCH MCHC RDW RDW Differential Plt Count MPV Immature Gran % (Auto) Neut % (Auto) Lymph % (Auto) [place] % (Auto) Eos % (Auto) Baso % (Auto) Absolute Neuts (auto) Absolute Lymphs (auto) Total Counted Differential Comment PT INR APTT Specimen Type ART Sample Site L Radial pH 7.23 L Bicarbonate Actual 19.6 L POC Total CO2 21 Base Excess -8 L O2 Saturation 87 L ABG pCO2 47.0 H ABG pO2 64 L Ray Test POS O2 Delivery Device Nasal Can Liter Flow 8.0 Blood Gas Notified Whom ICU MD Blood Gas Notified Time 520 Sodium Potassium Chloride Carbon Dioxide Anion Gap BUN Creatinine Estim Creat Clear Calc Est GFR (MDRD) Af Amer Est GFR (MDRD) Non-Af BUN/Creatinine Ratio Glucose Lactic Acid Calcium Phosphorus Magnesium Total Bilirubin AST ALT Alkaline Phosphatase Ammonia Total Creatine Kinase Troponin I B-Natriuretic Peptide Total Protein Albumin Globulin Albumin/Globulin Ratio Urine Color Urine Clarity Urine pH Ur Specific [place] Urine Protein Urine Glucose (UA) Urine Ketones Urine Occult Blood Urine Nitrite Urine Bilirubin Urine Urobilinogen Ur Leukocyte Esterase Urine RBC Urine WBC Ur Squamous Epith Cells Calcium Oxalate Crystal Urine Bacteria Hyaline Casts Fine Granular Casts Urine Mucus MRSA (PCR) POSITIVE H POC Glucose 120 H 09/26/18 09/26/18 09/26/18 00:03 01:25 01:25 WBC 7.4 RBC 3.04 L Hgb 9.0 L Hct 32.1 L MCV 105.6 H MCH 29.6 MCHC 28.0 L RDW 16.6 H RDW Differential 61.4 H Plt Count 106 L MPV 9.6 Immature Gran % (Auto) 1.200 H Neut % (Auto) 90.3 H Lymph % (Auto) 3.0 L [place] % (Auto) 4.2 Eos % (Auto) 1.2 Baso % (Auto) 0.1 Absolute Neuts (auto) 6.7 Absolute Lymphs (auto) 0.22 L Total Counted Not Reportable Differential Comment PT INR APTT Specimen Type Sample Site pH Bicarbonate Actual POC Total CO2 Base Excess O2 Saturation ABG pCO2 ABG pO2 Ray Test O2 Delivery Device Liter Flow Blood Gas Notified Whom Blood Gas Notified Time Sodium 149 H Potassium 5.6 H Chloride 122 H Carbon Dioxide 22.0 Anion Gap 5 BUN 59 H Creatinine 2.31 H Estim Creat Clear Calc 23.84 Est GFR (MDRD) Af Amer 27 L Est GFR (MDRD) Non-Af 22 L BUN/Creatinine Ratio 25.5 H Glucose 100 Lactic Acid Calcium 7.3 L Phosphorus 5.2 H Magnesium 1.7 Total Bilirubin AST ALT Alkaline Phosphatase Ammonia Total Creatine Kinase Troponin I B-Natriuretic Peptide Total Protein Albumin Globulin Albumin/Globulin Ratio Urine Color Urine Clarity Urine pH Ur Specific [place] Urine Protein Urine Glucose (UA) Urine Ketones Urine Occult Blood Urine Nitrite Urine Bilirubin Urine Urobilinogen Ur Leukocyte Esterase Urine RBC Urine WBC Ur Squamous Epith Cells Calcium Oxalate Crystal Urine Bacteria Hyaline Casts Fine Granular Casts Urine Mucus MRSA (PCR) POC Glucose 105 09/26/18 09/26/18 05:23 05:54 WBC RBC Hgb Hct MCV MCH MCHC RDW RDW Differential Plt Count MPV Immature Gran % (Auto) Neut % (Auto) Lymph % (Auto) [place] % (Auto) Eos % (Auto) Baso % (Auto) Absolute Neuts (auto) Absolute Lymphs (auto) Total Counted Differential Comment PT INR APTT Specimen Type ART Sample Site L Radial pH 7.19 L* Bicarbonate Actual 19.9 L POC Total CO2 21 Base Excess -8 L O2 Saturation 89 L ABG pCO2 52.7 H ABG pO2 70 L Ray Test POS O2 Delivery Device Nasal Can Liter Flow 9.0 Blood Gas Notified Whom [facility] Blood Gas Notified Time 517 Sodium Potassium Chloride Carbon Dioxide Anion Gap BUN Creatinine Estim Creat Clear Calc Est GFR (MDRD) Af Amer Est GFR (MDRD) Non-Af BUN/Creatinine Ratio Glucose Lactic Acid Calcium Phosphorus Magnesium Total Bilirubin AST ALT Alkaline Phosphatase Ammonia Total Creatine Kinase Troponin I B-Natriuretic Peptide Total Protein Albumin Globulin Albumin/Globulin Ratio Urine Color Urine Clarity Urine pH Ur Specific [place] Urine Protein Urine Glucose (UA) Urine Ketones Urine Occult Blood Urine Nitrite Urine Bilirubin Urine Urobilinogen Ur Leukocyte Esterase Urine RBC Urine WBC Ur Squamous Epith Cells Calcium Oxalate Crystal Urine Bacteria Hyaline Casts Fine Granular Casts Urine Mucus MRSA (PCR) POC Glucose 107 Microbiology 09/25/18 12:40 Urine Catheter - Catheter Legionella Antigen - Final 09/25/18 12:40 Urine Catheter - Catheter Streptococcus pneumoniae Antigen (M - Final 09/25/18 07:25 Mucosa - Nasopharyngeal Respiratory Panel (PCR) - Final Clinical Impression(s) from Imaging Studies Chest X-Ray 09/24/18 19:55 IMPRESSION: Poor inspiration. Right lower lung field infiltrate and/or atelectasis. Increased pulmonic density also noted in the left perihilar area. These abnormalities represent new interval findings. Mild cardiomegaly. Status post sternotomy. Electronically Signed: Tristen Coronel MD at 21:35 EDT , Service support , Brain CT 09/24/18 21:48 IMPRESSION: Worsening right frontoparietal deep white matter ischemia which may be progression of old changes however new infarct cannot be excluded. MRI brain follow-up is recommended. Bilateral deep white matter old small vessel ischemic changes as well Inflammatory changes paranasal sinuses Bilateral mastoid effusions Electronically Signed: Gregory Gordon at 23:45 EDT Tel , Service support , Chest X-Ray 09/25/18 08:04 IMPRESSION: Worsening CHF Electronically Signed: Chilo Whitaker DO at 9:21 EDT Tel , Service support , Chest CT 09/25/18 08:13 IMPRESSION: 1. Diffuse bilateral pneumonic infiltrates with associated bibasilar consolidation and small to moderate-sized bilateral pleural effusions, right greater than left. 2. Reactive mediastinal and hilar lymph nodes. 3. Mild cardiomegaly. 4. Perihepatic and perisplenic ascites. Electronically Signed: Rashaad Doty MD at 5:00 EDT Tel , Service support , Medical Necessity - Tobacco Use Smoking Status: Former smoker Tobacco Use: Non-smoker Assessment/Plan All Active Problems (Last Reviewed 07/30/18 @ 15:46 by Maria L Ortiz) Bilateral cellulitis of lower leg (Acute) Acute on chronic respiratory failure with hypoxemia (Acute) Flu-like symptoms (Acute) Hypoxia (Acute) Change in mental status (Acute) Encephalopathy (Acute) Hyperkalemia (Acute) BRBPR (bright red blood per rectum) (Resolved) C. difficile colitis (Resolved) Cholelithiasis (Resolved) Hyperkalemia (Resolved) RECOMMENDATIONS: 1. Continue BiPAP therapy. Wean as tolerated. 2. Recheck liver function profile and lipase level. 3. Continue broad-spectrum antimicrobial coverage. 4. Repeat CT head this morning. 5. Continue appropriate ICU prophylaxis. 6. Physical therapy to work with the patient. IMPRESSIONS: 1. Acute hypoxemic and hypercarbic respiratory failure with concerns for underlying healthcare associated pneumonia The patient does have radiographic evidence of an underlying pulmonary infectious process. Continue broad-spectrum antimicrobials as ordered. Wean supplemental oxygen to maintain saturations at or above 90%. Given the patient's elevated troponin and BNP level, I am also concerned for potential CHF exacerbation. The patient surface echocardiogram did reveal evidence of diastolic dysfunction along with aortic valve stenosis and significant pulmonary hypertension. I do suspect that she would benefit from volume optimization. However, nephrology has been reluctant to utilize diuretics, given the patient's renal insufficiency. The patient will be weaned from BiPAP as tolerated. 2. Abnormal CT head Initial CT head revealed white matter ischemic changes of unclear chronicity. Neurology is currently following. Repeat head CT is scheduled for this morning. 3. Encephalopathy Improved. Likely metabolic in nature. As noted above, repeat head CT is scheduled for this morning. 4. Troponin elevation/underlying heart failure with preserved ejection fraction/aortic valve stenosis/coronary artery disease Likely secondary to demand ischemia in the setting of #1. Cautious use of supplemental IV fluids, given valvular stenosis, pulmonary hypertension and diastolic dysfunction. 5. Acute on chronic kidney disease/hyperkalemia Nephrology consultation is currently pending. No current indication for renal replacement therapy. Continue medical management of the patient's elevated potassium level. 6. Obesity/hyperlipidemia/hypertension/diabetes/lower extremity cellulitis Complicates care, management, recovery and prognosis. The patient's diet can be advanced if she is able to be maintained off of BiPAP therapy today. TIME: 40 minutes of critical care time, independent of procedures, was spent addressing the patient's acute hypoxemic and hypercarbic respiratory failure, healthcare associated pneumonia, encephalopathy, abnormal CT head, troponin elevation, aortic valve stenosis, acute on chronic kidney disease, review of all data and collaboration with the care team. ([id number]) Code Visit [id number]: [id number] Critical care first hour
[2018-09-26 07:27] LABS: AST(SGOT) 19 U/L (15-37); Alanine Aminotransfer ALT/SGPT 25 U/L (13-56); Albumin, Serum 1.9 g/dL (3.2-5.0); Alkaline Phosphatase 96 U/L (45-117); Bilirubin, Direct 0.22 mg/dL (0.00-0.30); Globulin 3.1 g/dL (2.2-4.2); Lipase 130 U/L (73-393)
[2018-09-26] MEDS: Enoxaparin 30 MG/0.3 ML Syringe SC (09:30)
--- NOTE | 2018-09-26 09:32 | PCM.PN.HOSP ---
Patient Problems: Active and Suspected Problems (Last Reviewed 07/30/18 @ 15:46 by Maria L Ortiz) Hypoxia (Acute) Change in mental status (Acute) Encephalopathy (Acute) Hyperkalemia (Acute) Subjective: Patient currently is on BiPAP. Repeat ABG on 9 Liter of oxygen through nasal cannula is 7.19/53/70 and therefore started on BiPAP. Patient also short of breath. Seen by supervisor pit and auxiliaries and recommended no IV fluid or diuretic. Patient seen not very alert and not very involved in conversation but sometimes answers questions tangentially and not relevant Vitals/I&O's: Vital Signs Temp Pulse Resp BP Pulse Ox 99.7 F H 89 28 H 120/47 L 96 09/26/18 08:00 09/26/18 09:30 09/26/18 09:00 09/26/18 09:30 09/26/18 09:00 Oxygen Flow Rate (L/min) 8 Oxygen Delivery Method Nasal Cannula Weight: 247 lb 2.211 oz Body Mass Index (BMI) 37.5 Finger Stick Blood Glucose 74 Intake and Output for Last 24 Hours 09/24/18 09/25/18 09/26/18 23:59 23:59 23:59 Intake Total 693 / 693 1066.6 / 1066.6 Output Total 300 / 300 950 / 950 Balance 393 / 393 116.6 / 116.6 General: Oriented x3, Cooperative, Lethargic HEENT: Atraumatic, PERRLA, EOMI, Normocephalic Oral: - Neck: Supple, No JVD, Negative Carotid Bruits Lungs: Diminished - BiPAP, Rhonchi Cardiovascular: Regular rate, Regular Rhythm, Normal S1, Normal S2, No murmurs Abdomen: Bowel Sounds Present, Soft, Non Tender Extremities: Capillary Refill Less than 3 Seconds, Edema, - - Both lower legs are wrapped Skin: Ulcer/ Wound - Small superficial skin breakdown from edema Musculoskeletal: No Tenderness to Palpation of Joints or Extremities, Arthritic Changes, Muscle Wasting Neurological: Cranial nerves II-XII grossly intact, Deep Tendon Reflexes 2+/4 and Symmetrical Psych/Mental Status: Normal Affect, Appropriate Microbiology Past 72 Hours 09/25/18 12:40 Urine Catheter - Catheter Legionella Antigen - Final 09/25/18 12:40 Urine Catheter - Catheter Streptococcus pneumoniae Antigen (M - Final 09/25/18 07:25 Mucosa - Nasopharyngeal Respiratory Panel (PCR) - Final Laboratory Results 09/25/18 09:00: MRSA (PCR) POSITIVE H 09/25/18 16:12: POC Glucose 120 H 09/26/18 00:03: POC Glucose 105 09/26/18 01:25: WBC 7.4, RBC 3.04 L, Hgb 9.0 L, Hct 32.1 L, MCV 105.6 H, MCH 29.6, MCHC 28.0 L, RDW 16.6 H, RDW Differential 61.4 H, Plt Count 106 L, MPV 9.6, Immature Gran % (Auto) 1.200 H, Neut % (Auto) 90.3 H, Lymph % (Auto) 3.0 L, [place] % (Auto) 4.2, Eos % (Auto) 1.2, Baso % (Auto) 0.1, Absolute Neuts (auto) 6.7, Absolute Lymphs (auto) 0.22 L, Total Counted Not Reportable 09/26/18 01:25: Sodium 149 H, Potassium 5.6 H, Chloride 122 H, Carbon Dioxide 22.0, Anion Gap 5, BUN 59 H, Creatinine 2.31 H, Estim Creat Clear Calc 23.84, Est GFR (MDRD) Af Amer 27 L, Est GFR (MDRD) Non-Af 22 L, BUN/Creatinine Ratio 25.5 H, Glucose 100, Calcium 7.3 L, Phosphorus 5.2 H, Magnesium 1.7 09/26/18 01:25: Total Bilirubin 0.50, Direct Bilirubin 0.22, AST 19, ALT 25, Alkaline Phosphatase 96, Total Protein 5.0 L, Albumin 1.9 L, Globulin 3.1, Lipase 130 09/26/18 01:25: Troponin I 0.489 H 09/26/18 05:23: Specimen Type ART, Sample Site L Radial, pH 7.19 L*, Bicarbonate Actual 19.9 L, POC Total CO2 21, Base Excess -8 L, O2 Saturation 89 L, ABG pCO2 52.7 H, ABG pO2 70 L, Ray Test POS, O2 Delivery Device Nasal Can, Liter Flow 9.0, Blood Gas Notified Whom CARMEN CHANCE, Blood Gas Notified Time 517 09/26/18 05:54: POC Glucose 107 Current Medications Acetaminophen (Tylenol) 650 mg RECTAL Q6H PRN PRN PRN Reason: pain/fever Last Admin: 09/25/18 21:45 Dose: 650 mg Albuterol/Ipratropium (Duoneb) 3 ml INHALATION Q6H.RT [facility] Last Admin: 09/26/18 07:04 Dose: 3 ml Chlorhexidine Gluconate () 1 each TOPICAL DAILY [facility] Last Admin: 09/26/18 03:52 Dose: 1 each Enoxaparin Sodium (Lovenox) 30 mg SC DAILY@1000 DI[facility] Last Admin: 09/26/18 09:30 Dose: 30 mg Meropenem 1 gm/ Sodium (Chloride) 120 mls @ 33 mls/hr IV Q12 [facility] Last Admin: 09/26/18 09:30 Dose: 33 mls/hr Sodium Chloride () 250 mls @ 15 mls/hr IV .[id number] PRN PRN Reason: SALINE FLUSH Vancomycin IV Pharmacy to Dose (1 ea/ Sodium Chloride) 500 mls @ 250 mls/hr IV X1 PRN; Protocol PRN Reason: Rx to Dose Vancomycin HCl 1,500 mg/ (Sodium Chloride) 530 mls @ 250 mls/hr IV Q24H [facility] Last Admin: 09/25/18 21:44 Dose: 250 mls/hr Insulin Human Lispro (Humalog Kwikpen (Bkc)) 0 unit SC Q6 [facility]; Protocol Last Admin: 09/26/18 06:08 Dose: Not Given Metoprolol Tartrate (Lopressor (Beta Richard)) 50 mg PO BID [facility] Last Admin: 09/26/18 09:30 Dose: 50 mg Sodium Chloride () 5 - 15 ml IV UD PRN PRN Reason: SALINE FLUSH Last Admin: 09/25/18 20:13 Dose: 15 ml Medical Necessity - Tobacco Use Smoking Status: Former smoker Tobacco Use: Non-smoker Assessment/Plan All Active Problems (Last Reviewed 07/30/18 @ 15:46 by Maria L Ortiz) Bilateral cellulitis of lower leg (Acute) Acute on chronic respiratory failure with hypoxemia (Acute) Flu-like symptoms (Acute) Hypoxia (Acute) Change in mental status (Acute) Encephalopathy (Acute) Hyperkalemia (Acute) BRBPR (bright red blood per rectum) (Resolved) C. difficile colitis (Resolved) Cholelithiasis (Resolved) Hyperkalemia (Resolved) There is a 67-year-old female was admitted from SNF for hypoxia, change in mental status, confusion and disorientation. She was found to have 66% on room air in SNF and 71% on 4 L oxygen was given aerosol treatment and pulse ox was 96%. She was vaguely responsive to painful stimuli SNF. Patient was put on BiPAP and was further admitted in ICU #1 acute hypoxic and hypercarbic combined respiratory failure-patient is being admitted in ICU. Automotive Worker Foreman was consulted. Initial ABG reported pH 7.16, PCO2 57/PO2 68 on 12 L of oxygen. Repeat ABG on 09/25 is better, 7.23/40 7/64 on 8 L of oxygen. Continue oxygen support and BiPAP if needed. It seems patient was not on oxygen in long term. #2 acute metabolic/infectious encephalopathy-much improved. Patient was seen by neurologist. CT head showed worsening of white matter changes but as per neurologist no change from previous CT head and advised repeat CT scan. Repeat CT scan on 09/26 more than 24 hours reported no evidence of acute infarct or intracranial hemorrhage but similar microvascular changes on previous CT scan. Patient cannot have MRI brain secondary to cochlear implant. No focal symptoms to suggest stroke. #3 healthcare acquired pneumonia right lower lobe-continue on meropenem and vancomycin. Urinary antigens are negative. Respiratory panel negative. MRSA nasal screen is positive therefore continue vancomycin. CT chest reported diffuse bilateral infiltrates with associated bibasilar consolidation and small to moderate-sized bilateral pleural effusions, right greater than left. #4 Type 2 diabetes-on Accu-Cheks and cover with NovoLog sliding scale. Blood sugar is controlled. #5 coronary artery disease status post three-vessel CABG in 2007. Patient had repeat heart cath in September 2017 reported as saphenous vein graft to circumflex is totally occluded but STORY to mid LAD and saphenous vein graft to distal RCA patent. History of right femoral bypass surgery. Acute on chronic heart failure with preserved EF suggestive of diastolic heart failure and valvular heart disease with secondary pulmonary hypertension: Echo done on 09/25 reported EF 65% with no regional wall motion abnormality. Left atrium mildly enlarged. Normal right atrium normal RV size systolic function. Mild mitral valve stenosis. Moderate 2+ TR, RVSP 94 mmHg cystoscopy secondary pulmonary hypertension. Moderate to severe aortic valve stenosis. 1-2+ MS. Intermittent troponin mainly from heart failure and demand ischemia. Patient does not have chest pain. Peripheral arterial disease: Arterial study on June 2018 reported as calcification of vessel ortiz in ankle. Mild peripheral arterial disease reported Acute kidney injury on CKD stage III: Patient baseline creatinine runs around 1.6-1.8 with gradual worsening from September 2017. It was between 1.6-1.9 in February 2018. BUN/creatinine remains elevated than baseline, 59/2.31. Marketing Programs Specialist has been consulted for diuresis but advised no diuresis or IV fluid. Marketing Programs Specialist ordered for Blanc catheterization. Total urine output 950 mill since midnight. Monitor kidney function. No need for RESORT DESK CLERK #6 hyperlipidemia #7 hypertension #8 hyperkalemia-etiology unclear, BMP will be rechecked, I have decided not to give the patient any Kayexalate at this time. Kayexalate was given yesterday. Repeat K5.6. #9 chronic kidney disease stage IV secondary to type 2 diabetes, labs will be monitored Microbiology Past 72 Hours 09/25/18 12:40 Urine Catheter - Catheter Legionella Antigen - Final 09/25/18 12:40 Urine Catheter - Catheter Streptococcus pneumoniae Antigen (M - Final 09/25/18 07:25 Mucosa - Nasopharyngeal Respiratory Panel (PCR) - Final Laboratory Results 09/25/18 09:00: MRSA (PCR) POSITIVE H 09/25/18 16:12: POC Glucose 120 H 09/26/18 00:03: POC Glucose 105 09/26/18 01:25: WBC 7.4, RBC 3.04 L, Hgb 9.0 L, Hct 32.1 L, MCV 105.6 H, MCH 29.6, MCHC 28.0 L, RDW 16.6 H, RDW Differential 61.4 H, Plt Count 106 L, MPV 9.6, Immature Gran % (Auto) 1.200 H, Neut % (Auto) 90.3 H, Lymph % (Auto) 3.0 L, [place] % (Auto) 4.2, Eos % (Auto) 1.2, Baso % (Auto) 0.1, Absolute Neuts (auto) 6.7, Absolute Lymphs (auto) 0.22 L, Total Counted Not Reportable 09/26/18 01:25: Sodium 149 H, Potassium 5.6 H, Chloride 122 H, Carbon Dioxide 22.0, Anion Gap 5, BUN 59 H, Creatinine 2.31 H, Estim Creat Clear Calc 23.84, Est GFR (MDRD) Af Amer 27 L, Est GFR (MDRD) Non-Af 22 L, BUN/Creatinine Ratio 25.5 H, Glucose 100, Calcium 7.3 L, Phosphorus 5.2 H, Magnesium 1.7 09/26/18 01:25: Total Bilirubin 0.50, Direct Bilirubin 0.22, AST 19, ALT 25, Alkaline Phosphatase 96, Total Protein 5.0 L, Albumin 1.9 L, Globulin 3.1, Lipase 130 09/26/18 01:25: Troponin I 0.489 H 09/26/18 05:23: Specimen Type ART, Sample Site L Radial, pH 7.19 L*, Bicarbonate Actual 19.9 L, POC Total CO2 21, Base Excess -8 L, O2 Saturation 89 L, ABG pCO2 52.7 H, ABG pO2 70 L, Ray Test POS, O2 Delivery Device Nasal Can, Liter Flow 9.0, Blood Gas Notified Whom HOSP , Blood Gas Notified Time 517 09/26/18 05:54: POC Glucose 107 Clinical Impression(s) from Imaging Studies Chest X-Ray 09/25/18 08:04 IMPRESSION: Worsening CHF Chest CT 09/25/18 08:13 IMPRESSION: 1. Diffuse bilateral pneumonic infiltrates with associated bibasilar consolidation and small to moderate-sized bilateral pleural effusions, right greater than left. 2. Reactive mediastinal and hilar lymph nodes. 3. Mild cardiomegaly. 4. Perihepatic and perisplenic ascites. Brain CT 09/26/18 05:00 IMPRESSION: 1. No CT evidence of acute intracranial hemorrhage. 2. Bilateral otomastoiditis. 3. Moderately severe paranasal sinus disease. E Code Visit Inpatient E&M: 53982 Subs Hosp L3
--- NOTE | 2018-09-26 09:36 | PN_ITS ---
Patient Problems: Active and Suspected Problems (Last Reviewed 07/30/18 @ 15:46 by Maria L Ortiz) Hypoxia (Acute) Change in mental status (Acute) Encephalopathy (Acute) Hyperkalemia (Acute) Subjective: Patient currently is on BiPAP. Repeat ABG on 9 Liter of oxygen through nasal cannula is 7.19/53/70 and therefore started on BiPAP. Patient also short of breath. Seen by atm servicer and recommended no IV fluid or diuretic. Patient seen not very alert and not very involved in conversation but sometimes answers questions tangentially and not relevant Vitals/I&O's: Vital Signs Temp Pulse Resp BP Pulse Ox 99.7 F H 89 28 H 120/47 L 96 09/26/18 08:00 09/26/18 09:30 09/26/18 09:00 09/26/18 09:30 09/26/18 09:00 Oxygen Flow Rate (L/min) 8 Oxygen Delivery Method Nasal Cannula Weight: 247 lb 2.211 oz Body Mass Index (BMI) 37.5 Finger Stick Blood Glucose 74 Intake and Output for Last 24 Hours 09/24/18 09/25/18 09/26/18 23:59 23:59 23:59 Intake Total 693 / 693 1066.6 / 1066.6 Output Total 300 / 300 950 / 950 Balance 393 / 393 116.6 / 116.6 General: Oriented x3, Cooperative, Lethargic HEENT: Atraumatic, PERRLA, EOMI, Normocephalic Oral: - Neck: Supple, No JVD, Negative Carotid Bruits Lungs: Diminished - BiPAP, Rhonchi Cardiovascular: Regular rate, Regular Rhythm, Normal S1, Normal S2, No murmurs Abdomen: Bowel Sounds Present, Soft, Non Tender Extremities: Capillary Refill Less than 3 Seconds, Edema, - - Both lower legs are wrapped Skin: Ulcer/ Wound - Small superficial skin breakdown from edema Musculoskeletal: No Tenderness to Palpation of Joints or Extremities, Arthritic Changes, Muscle Wasting Neurological: Cranial nerves II-XII grossly intact, Deep Tendon Reflexes 2+/4 and Symmetrical Psych/Mental Status: Normal Affect, Appropriate Microbiology Past 72 Hours 09/25/18 12:40 Urine Catheter - Catheter Legionella Antigen - Final 09/25/18 12:40 Urine Catheter - Catheter Streptococcus pneumoniae Antigen (M - Final 09/25/18 07:25 Mucosa - Nasopharyngeal Respiratory Panel (PCR) - Final Laboratory Results 09/25/18 09:00: MRSA (PCR) POSITIVE H 09/25/18 16:12: POC Glucose 120 H 09/26/18 00:03: POC Glucose 105 09/26/18 01:25: WBC 7.4, RBC 3.04 L, Hgb 9.0 L, Hct 32.1 L, MCV 105.6 H, MCH 29.6, MCHC 28.0 L, RDW 16.6 H, RDW Differential 61.4 H, Plt Count 106 L, MPV 9.6, Immature Gran % (Auto) 1.200 H, Neut % (Auto) 90.3 H, Lymph % (Auto) 3.0 L, [place] % (Auto) 4.2, Eos % (Auto) 1.2, Baso % (Auto) 0.1, Absolute Neuts (auto) 6.7, Absolute Lymphs (auto) 0.22 L, Total Counted Not Reportable 09/26/18 01:25: Sodium 149 H, Potassium 5.6 H, Chloride 122 H, Carbon Dioxide 22.0, Anion Gap 5, BUN 59 H, Creatinine 2.31 H, Estim Creat Clear Calc 23.84, Est GFR (MDRD) Af Amer 27 L, Est GFR (MDRD) Non-Af 22 L, BUN/Creatinine Ratio 25.5 H, Glucose 100, Calcium 7.3 L, Phosphorus 5.2 H, Magnesium 1.7 09/26/18 01:25: Total Bilirubin 0.50, Direct Bilirubin 0.22, AST 19, ALT 25, Alkaline Phosphatase 96, Total Protein 5.0 L, Albumin 1.9 L, Globulin 3.1, Lipase 130 09/26/18 01:25: Troponin I 0.489 H 09/26/18 05:23: Specimen Type ART, Sample Site L Radial, pH 7.19 L*, Bicarbonate Actual 19.9 L, POC Total CO2 21, Base Excess -8 L, O2 Saturation 89 L, ABG pCO2 52.7 H, ABG pO2 70 L, Ray Test POS, O2 Delivery Device Nasal Can, Liter Flow 9.0, Blood Gas Notified Whom CARMEN CHANCE, Blood Gas Notified Time 517 09/26/18 05:54: POC Glucose 107 Current Medications Acetaminophen (Tylenol) 650 mg RECTAL Q6H PRN PRN PRN Reason: pain/fever Last Admin: 09/25/18 21:45 Dose: 650 mg Albuterol/Ipratropium (Duoneb) [address] [facility] Last Admin: 09/26/18 07:04 Dose: 3 ml Chlorhexidine Gluconate () [address] [facility] Last Admin: 09/26/18 03:52 Dose: 1 each Enoxaparin Sodium (Lovenox) 30 mg SC DAILY@1000 DIANELYS Last Admin: 09/26/18 09:30 Dose: 30 mg Meropenem 1 gm/ Sodium (Chloride) 120 mls @ 33 mls/hr IV Q12 [facility] Last Admin: 09/26/18 09:30 Dose: 33 mls/hr Sodium Chloride () 250 mls @ 15 mls/hr IV .[id number] PRN PRN Reason: SALINE FLUSH Vancomycin IV Pharmacy to Dose (1 ea/ Sodium Chloride) 500 mls @ 250 mls/hr IV X1 PRN; Protocol PRN Reason: Rx to Dose Vancomycin HCl 1,500 mg/ (Sodium Chloride) 530 mls @ 250 mls/hr IV Q24H [facility] Last Admin: 09/25/18 21:44 Dose: 250 mls/hr Insulin Human Lispro (Humalog Kwikpen (Bkc)) 0 unit SC Q6 [facility]; Protocol Last Admin: 09/26/18 06:08 Dose: Not Given Metoprolol Tartrate (Lopressor (Beta Richard)) [address] [facility] Last Admin: 09/26/18 09:30 Dose: 50 mg Sodium Chloride () 5 - 15 ml IV UD PRN PRN Reason: SALINE FLUSH Last Admin: 09/25/18 20:13 Dose: 15 ml Medical Necessity - Tobacco Use Smoking Status: Former smoker Tobacco Use: Non-smoker Assessment/Plan All Active Problems (Last Reviewed 07/30/18 @ 15:46 by Maria L Ortiz) Bilateral cellulitis of lower leg (Acute) Acute on chronic respiratory failure with hypoxemia (Acute) Flu-like symptoms (Acute) Hypoxia (Acute) Change in mental status (Acute) Encephalopathy (Acute) Hyperkalemia (Acute) BRBPR (bright red blood per rectum) (Resolved) C. difficile colitis (Resolved) Cholelithiasis (Resolved) Hyperkalemia (Resolved) There is a 67-year-old female was admitted from SNF for hypoxia, change in mental status, confusion and disorientation. She was found to have 66% on room air in SNF and 71% on 4 L oxygen was given aerosol treatment and pulse ox was 96%. She was vaguely responsive to painful stimuli SNF. Patient was put on BiPAP and was further admitted in ICU #1 acute hypoxic and hypercarbic combined respiratory failure-patient is being admitted in ICU. Bi Application Developer was consulted. Initial ABG reported pH 7.16, PCO2 57/PO2 68 on 12 L of oxygen. Repeat ABG on 09/25 is better, 7.23/40 7/64 on 8 L of oxygen. Continue oxygen support and BiPAP if needed. It seems patient was not on oxygen in senior living. #2 acute metabolic/infectious encephalopathy-much improved. Patient was seen by neurologist. CT head showed worsening of white matter changes but as per neurologist no change from previous CT head and advised repeat CT scan. Repeat CT scan on 09/26 more than 24 hours reported no evidence of acute infarct or intracranial hemorrhage but similar microvascular changes on previous CT scan. Patient cannot have MRI brain secondary to cochlear implant. No focal symptoms to suggest stroke. #3 healthcare acquired pneumonia right lower lobe-continue on meropenem and vancomycin. Urinary antigens are negative. Respiratory panel negative. MRSA nasal screen is positive therefore continue vancomycin. CT chest reported diffuse bilateral infiltrates with associated bibasilar consolidation and small to moderate-sized bilateral pleural effusions, right greater than left. #4 Type 2 diabetes-on Accu-Cheks and cover with NovoLog sliding scale. Blood sugar is controlled. #5 coronary artery disease status post three-vessel CABG in 2007. Patient had repeat heart cath in September 2017 reported as saphenous vein graft to circumflex is totally occluded but STORY to mid LAD and saphenous vein graft to distal RCA patent. History of right femoral bypass surgery. Acute on chronic heart failure with preserved EF suggestive of diastolic heart failure and valvular heart disease with secondary pulmonary hypertension: Echo done on 09/25 reported EF 65% with no regional wall motion abnormality. Left atrium mildly enlarged. Normal right atrium normal RV size systolic function. Mild mitral valve stenosis. Moderate 2+ TR, RVSP 94 mmHg cystoscopy secondary p ulmonary hypertension. Moderate to severe aortic valve stenosis. 1-2+ GA. Intermittent troponin mainly from heart failure and demand ischemia. Patient does not have chest pain. Peripheral arterial disease: Arterial study on June 2018 reported as calcification of vessel ortiz in ankle. Mild peripheral arterial disease reported Acute kidney injury on CKD stage III: Patient baseline creatinine runs around 1.6-1.8 with gradual worsening from September 2017. It was between 1.6-1.9 in February 2018. BUN/creatinine remains elevated than baseline, 59/2.31. Bead Stringer has been consulted for diuresis but advised no diuresis or IV fluid. Bead Stringer ordered for Blanc catheterization. Total urine output 950 mill since midnight. Monitor kidney function. No need for VENDING MACHINE COIN COLLECTOR #6 hyperlipidemia #7 hypertension #8 hyperkalemia-etiology unclear, BMP will be rechecked, I have decided not to give the patient any Kayexalate at this time. Kayexalate was given yesterday. Repeat K5.6. #9 chronic kidney disease stage IV secondary to type 2 diabetes, labs will be monitored Microbiology Past 72 Hours 09/25/18 12:40 Urine Catheter - Catheter Legionella Antigen - Final 09/25/18 12:40 Urine Catheter - Catheter Streptococcus pneumoniae Antigen (M - Final 09/25/18 07:25 Mucosa - Nasopharyngeal Respiratory Panel (PCR) - Final Laboratory Results 09/25/18 09:00: MRSA (PCR) POSITIVE H 09/25/18 16:12: POC Glucose 120 H 09/26/18 00:03: POC Glucose 105 09/26/18 01:25: WBC 7.4, RBC 3.04 L, Hgb 9.0 L, Hct 32.1 L, MCV 105.6 H, MCH 29.6, MCHC 28.0 L, RDW 16.6 H, RDW Differential 61.4 H, Plt Count 106 L, MPV 9.6, Immature Gran % (Auto) 1.200 H, Neut % (Auto) 90.3 H, Lymph % (Auto) 3.0 L, [place] % (Auto) 4.2, Eos % (Auto) 1.2, Baso % (Auto) 0.1, Absolute Neuts (auto) 6.7, Absolute Lymphs (auto) 0.22 L, Total Counted Not Reportable 09/26/18 01:25: Sodium 149 H, Potassium 5.6 H, Chloride 122 H, Carbon Dioxide 2 2.0, Anion Gap 5, BUN 59 H, Creatinine 2.31 H, Estim Creat Clear Calc 23.84, Est GFR (MDRD) Af Amer 27 L, Est GFR (MDRD) Non-Af 22 L, BUN/Creatinine Ratio 25.5 H , Glucose 100, Calcium 7.3 L, Phosphorus 5.2 H, Magnesium 1.7 09/26/18 01:25: Total Bilirubin 0.50, Direct Bilirubin 0.22, AST 19, ALT 25, Alkaline Phosphatase 96, Total Protein 5.0 L, Albumin 1.9 L, Globulin 3.1, Lipase 130 09/26/18 01:25: Troponin I 0.489 H 09/26/18 05:23: Specimen Type ART, Sample Site L Radial, pH 7.19 L*, Bicarbonate Actual 19.9 L, POC Total CO2 21, Base Excess -8 L, O2 Saturation 89 L, ABG pCO2 52.7 H, ABG pO2 70 L, Ray Test POS, O2 Delivery Device Nasal Can, Liter Flow 9.0, Blood Gas Notified Whom HOSP , Blood Gas Notified Time 517 09/26/18 05:54: POC Glucose 107 Clinical Impression(s) from Imaging Studies Chest X-Ray 09/25/18 08:04 IMPRESSION: Worsening CHF Chest CT 09/25/18 08:13 IMPRESSION: 1. Diffuse bilateral pneumonic infiltrates with associated bibasilar consolidation and small to moderate-sized bilateral pleural effusions, right greater than left. 2. Reactive mediastinal and hilar lymph nodes. 3. Mild cardiomegaly. 4. Perihepatic and perisplenic ascites. Brain CT 09/26/18 05:00 IMPRESSION: 1. No CT evidence of acute intracranial hemorrhage. 2. Bilateral otomastoiditis. 3. Moderately severe paranasal sinus disease. E Code Visit Inpatient E&M: 42629 Subs Hosp L3
[2018-09-26 11:35] LABS: Bedside Glucose 92 mg/dL (70-110)
[2018-09-26 16:35] LABS: Bedside Glucose 120 mg/dL (70-110)
[2018-09-26] MEDS: 0.9% NaCl Peripheral Flush Adult/Peds IV (21:24)
[2018-09-26 22:05] LABS: Bedside Glucose 141 mg/dL (70-110)
[2018-09-26 22:37] LABS: Vancomycin, Trough Level 18.4 ug/mL (5.0-15.0)
[2018-09-26] MEDS: Acetaminophen 325 MG Tablet 650 MG PO (23:40)
[2018-09-27] VITALS (42 sets, daily range): BP systolic 92–148; BP diastolic 49–84; PULSE 68–153; RESP 12–26; TEMP 36.6–38.4; O2SAT 93–100
--- NOTE | 2018-09-27 00:59 | PCM.RX.CS ---
Consult Pharmacy has been consulted to manage selected antiobiotic: Vancomycin Type of Consult: Follow-up Suspected Infection: Pneumonia Labs: Sodium 149 mmol/L (136-145) H 09/26/18 01:25 Potassium 5.6 mmol/L (3.5-5.1) H 09/26/18 01:25 Chloride 122 mmol/L (98-107) H 09/26/18 01:25 Carbon Dioxide 22.0 mmol/L (21.0-32.0) 09/26/18 01:25 Anion Gap 5 (5-15) 09/26/18 01:25 BUN 59 mg/dL (7-18) H 09/26/18 01:25 Creatinine 2.31 mg/dL (0.55-1.02) H 09/26/18 01:25 Est GFR (MDRD) Af Amer 27 mL/min (>60) L 09/26/18 01:25 Est GFR (MDRD) Non-Af 22 mL/min (>60) L 09/26/18 01:25 BUN/Creatinine Ratio 25.5 RATIO (10-20) H 09/26/18 01:25 Glucose 100 mg/dL (74-106) 09/26/18 01:25 Vancomycin Trough 18.4 ug/mL (5.0-15.0) H 09/26/18 21:25 Microbiology: Microbiology 09/24/18 20:25 Urine Catheter - Catheter Urine Culture - Preliminary Culture exhibits no growth. 09/25/18 12:40 Urine Catheter - Catheter Legionella Antigen - Final 09/25/18 12:40 Urine Catheter - Catheter Streptococcus pneumoniae Antigen (M - Final 09/25/18 07:25 Mucosa - Nasopharyngeal Respiratory Panel (PCR) - Final Weight used for dosin kg Goal Trough: 15-20 mcg/mL Pharmacy Plan for Drug Dosing: Pharmacy Service will continue to monitor and adjust dosing as required. TROUGH 18.4 GOAL 15-20 NO CHANGES Follow-Up Labs: Trough Vancomycin Labs to be done on [date and time ordered]: 09/30 @ [id number]
[2018-09-27] MEDS: Ipratropium/Albuterol Sulfate 3 ML AMPUL.NEB INHALATION ×4 (01:53→19:41)
[2018-09-27 04:12] LABS: Absolute Lymphocyte Count 0.22 X10^3/ul (0.83-4.51); Absolute Neutrophil Count 5.7 X10^3/uL (2.0-7.7); Basophil# 0.01 X10^3/uL; Basophil% 0.2 % (0-1); Eosinophil# 0.19 X10^3/uL; Eosinophils% 2.9 % (0-5); Hematocrit 30.3 % (37-47); Hemoglobin 8.7 g/dl (12.0-15.0); Lymphocyte # 0.22 X10^3/ul (4.0); Lymphocyte % 3.4 % (19-41); Mean Corp Hgb Conc 28.7 g/gl (32-36); Mean Corpuscular Hgb 29.8 pg (27.0-32.0); Mean Corpuscular Volume 103.8 fL (81-99); Mean Platelet Vol. 9.6 fl (6.2-12.0); Monocyte# 0.27 X10^3/uL; Monocyte% 4.2 % (0-10); Neutrophil # 5.71 X10^3/uL (2.7-7.7); Neutrophil % 88.5 % (47-70); Platelet Count 99 K/mm3 (150-450); RBC Distribution Width CV 16.6 % (11.6-14.6); RBC Distribution Width SD 60.6 fl (35.1-43.9); Red Blood Count 2.92 M/mm3 (4.2-5.4); White Blood Count 6.5 K/mm3 (4.4-11.0)
[2018-09-27 04:16] LABS: Differential Indicated SCAN CRITERIA MET; POSITIVE COUNT NO; POSITIVE DIFFERENTIAL YES; POSITIVE MORPHOLOGY NO
[2018-09-27 04:24] LABS: Anion Gap 6 (5-15); BUN 64 mg/dL (7-18); BUN/Creat Ratio 28.3 RATIO (10-20); Calcium,Total 7.3 mg/dL (8.5-10.1); Chloride 124 mmol/L (98-107); Creatinine, Serum 2.26 mg/dL (0.55-1.02); EST Glomerular Filtration Rate 23 mL/min (>60); Est Glom Filt Rate - Afr Amer 28 mL/min (>60); Estimated Creatinine Clearance 24.37 ml/min; Glucose 141 mg/dL (74-106); Magnesium 1.8 mg/dL (1.6-2.6); Phosphorus 5.2 mg/dL (2.5-4.9); Potassium 4.5 mmol/L (3.5-5.1); Sodium Level 153 mmol/L (136-145)
[2018-09-27 04:30] LABS: Differential Comment SCANNED
[2018-09-27] MEDS: CHLORHEXIDINE GLUC 2% CLOTH 1 EACH TOWELETTE TOPICAL (05:51)
--- NOTE | 2018-09-27 07:26 | CPS ---
Pt placed on AVAPS vt [address] Gipson verbal order.
[2018-09-27] MEDS: Metoprolol Tartrate 50 MG Tablet PO ×2 (08:49→20:58)
[2018-09-27] MEDS: Enoxaparin 30 MG/0.3 ML Syringe SC (09:00)
[2018-09-27 09:01] LABS: Bedside Glucose 112 mg/dL (70-110)
--- NOTE | 2018-09-27 09:26 | PCM.PN.HOSP ---
Patient Problems: Active and Suspected Problems (Last Reviewed 07/30/18 @ 15:46 by Maria L Ortiz) Hypoxia (Acute) Change in mental status (Acute) Encephalopathy (Acute) Hyperkalemia (Acute) Subjective: Patient was seen and examined. Remained on BiPAP. Alert and oriented to self, not to place or time. No acute events overnight. Vitals/I&O's: Vital Signs Temp Pulse Resp BP Pulse Ox 98.8 F 139 H 23 H 146/65 H 100 09/27/18 06:00 09/27/18 08:49 09/27/18 06:45 09/27/18 08:49 09/27/18 06:45 Oxygen Flow Rate (L/min) 8 Oxygen Delivery Method Bi-pap Weight: 110.2 kg Body Mass Index (BMI) 37.5 Finger Stick Blood Glucose 74 Intake and Output for Last 24 Hours 09/25/18 09/26/18 09/27/18 23:59 23:59 23:59 Intake Total 693 / 693 2389.1 / 2389.1 223.7 / 223.7 Output Total 300 / 300 1575 / 1575 150 / 150 Balance 393 / 393 814.1 / 814.1 73.7 / 73.7 General: Alert, Cooperative, No apparent distress, Confused HEENT: Atraumatic, PERRLA, EOMI, Normocephalic Oral: Moist Mucosa Neck: Supple Lungs: Diminished Cardiovascular: Regular rate, Regular Rhythm, Normal S1, Normal S2, No murmurs Abdomen: Bowel Sounds Present, Soft, Non Tender, Non-Distended, No Hepato-splenomegaly Extremities: No edema Skin: - - Bilateral lower extremities edema +3 with erythema and areas of ulceration, worse on the right Musculoskeletal: No Tenderness to Palpation of Joints or Extremities Lymphatic: No Cervical, Supraclavicular, or Inguinal Adenopathy Neurological: Cranial nerves II-XII grossly intact Psych/Mental Status: Normal Affect, Appropriate Microbiology Past 72 Hours 09/24/18 20:25 Urine Catheter - Catheter Urine Culture - Final Culture exhibits no growth. 09/24/18 19:20 Blood Culture (Wb) - Anticubital Left Blood Culture - Preliminary No growth in 48 hours. 09/24/18 19:08 Blood Culture (Wb) - Right Hand Blood Culture - Preliminary No growth in 48 hours. 09/25/18 12:40 Urine Catheter - Catheter Legionella Antigen - Final 09/25/18 12:40 Urine Catheter - Catheter Streptococcus pneumoniae Antigen (M - Final 09/25/18 07:25 Mucosa - Nasopharyngeal Respiratory Panel (PCR) - Final Laboratory Results 09/26/18 11:30: POC Glucose 92 09/26/18 16:28: POC Glucose 120 H 09/26/18 21:25: Vancomycin Trough 18.4 H 09/26/18 21:50: POC Glucose 141 H 09/27/18 04:05: WBC 6.5, RBC 2.92 L, Hgb 8.7 L, Hct 30.3 L, MCV 103.8 H, MCH 29.8, MCHC 28.7 L, RDW 16.6 H, RDW Differential 60.6 H, Plt Count 99 L, MPV 9.6, Immature Gran % (Auto) 0.800, Neut % (Auto) 88.5 H, Lymph % (Auto) 3.4 L, [place] % (Auto) 4.2, Eos % (Auto) 2.9, Baso % (Auto) 0.2, Absolute Neuts (auto) 5.7, Absolute Lymphs (auto) 0.22 L, Total Counted Not Reportable, Differential Comment SCANNED 09/27/18 04:05: Sodium 153 H, Potassium 4.5, Chloride 124 H, Carbon Dioxide 23.0, Anion Gap 6, BUN 64 H, Creatinine 2.26 H, Estim Creat Clear Calc 24.37, Est GFR (MDRD) Af Amer 28 L, Est GFR (MDRD) Non-Af 23 L, BUN/Creatinine Ratio 28.3 H, Glucose 141 H, Calcium 7.3 L, Phosphorus 5.2 H, Magnesium 1.8 09/27/18 08:45: POC Glucose 112 H Current Medications Acetaminophen (Tylenol) 650 mg RECTAL Q6H PRN PRN PRN Reason: pain/fever Last Admin: 09/25/18 21:45 Dose: 650 mg Acetaminophen (Tylenol) 650 mg PO Q6H PRN PRN PRN Reason: Pain/fever Last Admin: 09/26/18 23:40 Dose: 650 mg Albuterol/Ipratropium (Duoneb) 3 ml INHALATION Q6H.RT DIANELYS Last Admin: 09/27/18 06:35 Dose: 3 ml Chlorhexidine Gluconate () 1 each TOPICAL DAILY [facility] Last Admin: 09/27/18 05:51 Dose: 1 each Enoxaparin Sodium (Lovenox) 30 mg SC DAILY@1000 DIANELYS Last Admin: 09/27/18 09:00 Dose: 30 mg Meropenem 1 gm/ Sodium (Chloride) 120 mls @ 33 mls/hr IV Q12 [facility] Last Admin: 09/27/18 09:00 Dose: 33 mls/hr Sodium Chloride () 250 mls @ 15 mls/hr IV .[id number] PRN PRN Reason: SALINE FLUSH Vancomycin IV Pharmacy to Dose (1 ea/ Sodium Chloride) 500 mls @ 250 mls/hr IV X1 PRN; Protocol PRN Reason: Rx to Dose Vancomycin HCl 1,500 mg/ (Sodium Chloride) 530 mls @ 250 mls/hr IV Q24H [facility] Last Admin: 09/26/18 21:25 Dose: 250 mls/hr Insulin Human Lispro (Humalog Kwikpen (Bkc)) 0 unit SC ACHS [facility]; Protocol Last Admin: 09/27/18 08:47 Dose: Not Given Metoprolol Tartrate (Lopressor (Beta Richard)) 50 mg PO BID [facility] Last Admin: 09/27/18 08:49 Dose: 50 mg Sodium Chloride () 5 - 15 ml IV UD PRN PRN Reason: SALINE FLUSH Last Admin: 09/26/18 21:24 Dose: 15 ml Medical Necessity - Tobacco Use Smoking Status: Former smoker Tobacco Use: Non-smoker Assessment/Plan All Active Problems (Last Reviewed 07/30/18 @ 15:46 by Maria L Ortiz) Bilateral cellulitis of lower leg (Acute) Acute on chronic respiratory failure with hypoxemia (Acute) Flu-like symptoms (Acute) Hypoxia (Acute) Change in mental status (Acute) Encephalopathy (Acute) Hyperkalemia (Acute) BRBPR (bright red blood per rectum) (Resolved) C. difficile colitis (Resolved) Cholelithiasis (Resolved) Hyperkalemia (Resolved) 67-year-old female was admitted from SNF with hypoxia and mental status and has been admitted to the ICU managed at acute hypoxic and hypercapnic respiratory failure. 1. Acute hypoxic/hypercarbic combined respiratory failure secondary to acute on chronic diastolic CHF/HCAP, continues to be on BiPAP QHS and prn 2. Acute on chronic diastolic CHF/pulmonary hypertension/valvular heart disease, patient is fluid overloaded, discussed with nephrology, will start patient on Lasix Will continue with strict I's and O's, daily weights, 3. Acute metabolic/infectious encephalopathy, improved, patient still intermittently confused 4. Healthcare acquired pneumonia, likely secondary to suspected gram-negative organism and possible MRSA Continue on vancomycin and cefepime 5. KIM on CKD stage III, creatinine is stable for now, nephrology following, will monitor creatinine whilst on diuretics 6. Hypernatremia, secondary to dehydration, asymptomatic, will continue to monitor, repeat blood work in a.m. 7. CAD s/p 3-vessel CABG/PAD 8. Hyperlipidemia, off statins for now 9. Hypertension, controlled on metoprolol, continue to monitor 10. DVT PPx- Lovenox SC Code Visit Inpatient E&M: 43629 Subs Hosp L3
[2018-09-27 09:51] LABS: Allen Test POS; Base Excess -4 mmol/L (-2 to +2); Bicarbonate 22.6 mmol/L (22-26); Blood Gas Specimen Type ART; EPAP 10; FI02 40; PO2 114 mmHG (75-100); RR 12; SITE L Radial; SO2 98 % (95-99); Time Given 933; Total Carbon Dioxide 24 mmol/L; pCO2 50.8 mmHg (35-45); pH 7.26 (7.35-7.45)
--- NOTE | 2018-09-27 09:56 | NURSING ---
wound photo: left lower leg
--- NOTE | 2018-09-27 09:57 | NURSING ---
wound photo: right lower leg
--- NOTE | 2018-09-27 09:58 | NURSING ---
wound photo: right posterolateral lower leg
[2018-09-27] MEDS: Furosemide 40 MG/4 ML Vial IV ×3 (11:00→20:58)
--- NOTE | 2018-09-27 11:01 | PCM.PN.REN ---
Patient Problems: Active and Suspected Problems (Last Reviewed 07/30/18 @ 15:46 by Maria L Ortiz) Hypoxia (Acute) Change in mental status (Acute) Encephalopathy (Acute) Hyperkalemia (Acute) Subjective: still on bipap - Physical Exam General: Alert HEENT: Atraumatic, PERRLA, EOMI, Normocephalic Neck: Supple, No JVD, Negative Carotid Bruits Lungs: Clear to auscultation, Normal air movement Cardiovascular: Regular rate, No murmurs Abdomen: Bowel Sounds Present, Soft, Non Tender Extremities: Capillary Refill Less than 3 Seconds, Edema Skin: No rashes, No breakdown Musculoskeletal: No Tenderness to Palpation of Joints or Extremities Neurological: Cranial nerves II-XII grossly intact Vital Signs Temp Pulse Resp BP Pulse Ox 98.8 F 76 23 H 146/65 H 100 09/27/18 06:00 09/27/18 09:25 09/27/18 09:25 09/27/18 08:49 09/27/18 09:25 Oxygen Flow Rate (L/min) 8 Oxygen Delivery Method Bi-pap Weight: 110.2 kg Body Mass Index (BMI) 37.5 Finger Stick Blood Glucose 74 Intake and Output for Last 24 Hours 09/25/18 09/26/18 09/27/18 23:59 23:59 23:59 Intake Total 693 / 693 2389.1 / 2389.1 223.7 / 223.7 Output Total 300 / 300 1575 / 1575 150 / 150 Balance 393 / 393 814.1 / 814.1 73.7 / 73.7 Microbiology Past 72 Hours 09/24/18 20:25 Urine Culture - Final Urine Catheter - Catheter Culture exhibits no growth. 09/24/18 19:20 Blood Culture - Preliminary Blood Culture (Wb) - Anticubital Left No growth in 48 hours. 09/24/18 19:08 Blood Culture - Preliminary Blood Culture (Wb) - Right Hand No growth in 48 hours. 09/25/18 12:40 Legionella Antigen - Final Urine Catheter - Catheter 09/25/18 12:40 Streptococcus pneumoniae Antigen (M - Final Urine Catheter - Catheter 09/25/18 07:25 Respiratory Panel (PCR) - Final Mucosa - Nasopharyngeal Laboratory Tests Past 24 Hrs 09/26/18 09/27/18 09/27/18 21:25 04:05 04:05 WBC 6.5 RBC 2.92 L Hgb 8.7 L Hct 30.3 L MCV 103.8 H MCH 29.8 MCHC 28.7 L RDW 16.6 H RDW Differential 60.6 H Plt Count 99 L MPV 9.6 Immature Gran % (Auto) 0.800 Neut % (Auto) 88.5 H Lymph % (Auto) 3.4 L [place] % (Auto) 4.2 Eos % (Auto) 2.9 Baso % (Auto) 0.2 Absolute Neuts (auto) 5.7 Absolute Lymphs (auto) 0.22 L Total Counted Not Reportable Differential Comment SCANNED Specimen Type Sample Site pH Bicarbonate Actual POC Total CO2 Base Excess O2 Saturation O2 % ABG pCO2 ABG pO2 Ray Test Respiration Rate O2 Delivery Device EPAP Blood Gas Notified Whom Blood Gas Notified Time Sodium 153 H Potassium 4.5 Chloride 124 H Carbon Dioxide 23.0 Anion Gap 6 BUN 64 H Creatinine 2.26 H Estim Creat Clear Calc 24.37 Est GFR (MDRD) Af Amer 28 L Est GFR (MDRD) Non-Af 23 L BUN/Creatinine Ratio 28.3 H Glucose 141 H Calcium 7.3 L Phosphorus 5.2 H Magnesium 1.8 Vancomycin Trough 18.4 H 09/27/18 09:44 WBC RBC Hgb Hct MCV MCH MCHC RDW RDW Differential Plt Count MPV Immature Gran % (Auto) Neut % (Auto) Lymph % (Auto) [place] % (Auto) Eos % (Auto) Baso % (Auto) Absolute Neuts (auto) Absolute Lymphs (auto) Total Counted Differential Comment Specimen Type ART Sample Site L Radial pH 7.26 L Bicarbonate Actual 22.6 POC Total CO2 24 Base Excess -4 L O2 Saturation 98 O2 % 40 ABG pCO2 50.8 H ABG pO2 114 H Ray Test POS Respiration Rate 12 O2 Delivery Device Bi / C PAP EPAP 10 Blood Gas Notified Whom ICU MD Blood Gas Notified Time 933 Sodium Potassium Chloride Carbon Dioxide Anion Gap BUN Creatinine Estim Creat Clear Calc Est GFR (MDRD) Af Amer Est GFR (MDRD) Non-Af BUN/Creatinine Ratio Glucose Calcium Phosphorus Magnesium Vancomycin Trough POC Glucose 09/27/18 09/26/18 09/26/18 08:45 21:50 16:28 POC Glucose 112 H 141 H 120 H 09/26/18 11:30 POC Glucose 92 Medical Necessity - Tobacco Use Smoking Status: Former smoker Tobacco Use: Non-smoker Assessment/Plan All Active Problems (Last Reviewed 07/30/18 @ 15:46 by Maria L Ortiz) Bilateral cellulitis of lower leg (Acute) Acute on chronic respiratory failure with hypoxemia (Acute) Flu-like symptoms (Acute) Hypoxia (Acute) Change in mental status (Acute) Encephalopathy (Acute) Hyperkalemia (Acute) BRBPR (bright red blood per rectum) (Resolved) C. difficile colitis (Resolved) Cholelithiasis (Resolved) Hyperkalemia (Resolved) 1-CKD 3. KIM. Creatinine is slightly higher than baseline. However urine output dropped significantly compared to yesterday. lin in place. will try lasix 2-hyperkalemia from acute kidney injury. better 3-acute respiratory failure from pneumonia and pulmonary hypertension. Reviewed CXR. has dense interstitial edema. has significant peripheral edema as well. start lasix 40 mg TID IV 4-hypertension. Bp is ok 5- Hypernatremia. sodium is higher today. she is not ready to eat yet. will need D5W if sodium higher tomorrow. no need for today. some lethargy could be from hypernatremia but she has several other factors than can potentially cause it. radames Gipson
[2018-09-27 11:40] LABS: Bedside Glucose 107 mg/dL (70-110)
--- NOTE | 2018-09-27 12:34 | PN_ITS ---
Subjective: Patient did okay overnight. Patient has remained on BiPAP relatively continuously since yesterday. Patient did spike a fever overnight, but no pre ssor therapy was required. Patient has not had any p.o. intake secondary to an inability to tolerate off of BiPAP. Patient is very hard of hearing and is not providing much additional information at this time. This morning, patient was noted to have tidal volumes of approximately 100-200 cc. Patient was transitioned to AVAPS with improvement. Repeat ABG showed improvement in acidosis. General: Alert, Cooperative, No apparent distress, - - Obese. Good BiPAP synchrony noted. HEENT: Atraumatic, PERRLA, EOMI, Normocephalic, - - No scleral icterus or injection noted. Oral: No Gingival or Mucosal Lesions/ Ulcerations, Dry Mucosa, - - Crowded posterior pharynx Neck: Supple, No Nodes, Trachea Midline, - - Difficult to assess JVD secondary to body habitus Lungs: No rhonchi, No wheeze, Diminished, Rales Cardiovascular: Regular rate, Regular Rhythm, Murmur - Grade 2 out of 6 systolic ejection murmur at the left sternal border, No rub noted, No Gallop Abdomen: Bowel Sounds Present, Soft, Non Tender, Non-Distended, Obese Extremities: No clubbing, No cyanosis, Edema Skin: - - Multiple punctate ulcerations of the lower extremities. Musculoskeletal: No Tenderness to Palpation of Joints or Extremities, No Muscle Wasting Lymphatic: No Cervical, Supraclavicular, or Inguinal Adenopathy Neurological: Cranial nerves II-XII grossly intact, Neuro grossly intact, Motor Exam 5/5 strength throughout Psych/Mental Status: Appropriate, Flat Affect Vital Signs Temp Pulse Resp BP Pulse Ox 37.1 C 68 16 146/65 H 100 09/27/18 06:00 09/27/18 10:37 09/27/18 10:37 09/27/18 08:49 09/27/18 10:37 Oxygen Flow Rate (L/min) 8 Oxygen Delivery Method Bi-pap Weight: 110.2 kg Body Mass Index (BMI) 37.5 Finger Stick Blood Glucose 74 Intake and Output for Last 24 Hours 09/25/18 09/26/18 09/27/18 23:59 23:59 23:59 Intake Total 693 / 693 2389.1 / 2389.1 223.7 / 223.7 Output Total 300 / 300 1575 / 1575 150 / 150 Balance 393 / 393 814.1 / 814.1 73.7 / 73.7 Labs (Last 48 Hours) 09/25/18 09/26/18 09/26/18 16:12 00:03 01:25 WBC 7.4 RBC 3.04 L Hgb 9.0 L Hct 32.1 L MCV 105.6 H MCH 29.6 MCHC 28.0 L RDW 16.6 H RDW Differential 61.4 H Plt Count 106 L MPV 9.6 Immature Gran % (Auto) 1.200 H Neut % (Auto) 90.3 H Lymph % (Auto) 3.0 L [place] % (Auto) 4.2 Eos % (Auto) 1.2 Baso % (Auto) 0.1 Absolute Neuts (auto) 6.7 Absolute Lymphs (auto) 0.22 L Total Counted Not Reportable Differential Comment Specimen Type Sample Site pH Bicarbonate Actual POC Total CO2 Base Excess O2 Saturation O2 % ABG pCO2 ABG pO2 Ray Test Respiration Rate O2 Delivery Device Liter Flow EPAP Blood Gas Notified Whom Blood Gas Notified Time Sodium Potassium Chloride Carbon Dioxide Anion Gap BUN Creatinine Estim Creat Clear Calc Est GFR (MDRD) Af Amer Est GFR (MDRD) Non-Af BUN/Creatinine Ratio Glucose Calcium Phosphorus Magnesium Total Bilirubin Direct Bilirubin AST ALT Alkaline Phosphatase Troponin I Total Protein Albumin Globulin Lipase Vancomycin Trough POC Glucose 120 H 105 09/26/18 09/26/18 09/26/18 01:25 01:25 01:25 WBC RBC Hgb Hct MCV MCH MCHC RDW RDW Differential Plt Count MPV Immature Gran % (Auto) Neut % (Auto) Lymph % (Auto) [place] % (Auto) Eos % (Auto) Baso % (Auto) Absolute Neuts (auto) Absolute Lymphs (auto) Total Counted Differential Comment Specimen Type Sample Site pH Bicarbonate Actual POC Total CO2 Base Excess O2 Saturation O2 % ABG pCO2 ABG pO2 Ray Test Respiration Rate O2 Delivery Device Liter Flow EPAP Blood Gas Notified Whom Blood Gas Notified Time Sodium 149 H Potassium 5.6 H Chloride 122 H Carbon Dioxide 22.0 Anion Gap 5 BUN 59 H Creatinine 2.31 H Estim Creat Clear Calc 23.84 Est GFR (MDRD) Af Amer 27 L Est GFR (MDRD) Non-Af 22 L BUN/Creatinine Ratio 25.5 H Glucose 100 Calcium 7.3 L Phosphorus 5.2 H Magnesium 1.7 Total Bilirubin 0.50 Direct Bilirubin 0.22 AST 19 ALT 25 Alkaline Phosphatase 96 Troponin I 0.489 H Total Protein 5.0 L Albumin 1.9 L Globulin 3.1 Lipase 130 Vancomycin Trough POC Glucose 09/26/18 09/26/18 09/26/18 05:23 05:54 11:30 WBC RBC Hgb Hct MCV MCH MCHC RDW RDW Differential Plt Count MPV Immature Gran % (Auto) Neut % (Auto) Lymph % (Auto) [place] % (Auto) Eos % (Auto) Baso % (Auto) Absolute Neuts (auto) Absolute Lymphs (auto) Total Counted Differential Comment Specimen Type ART Sample Site L Radial pH 7.19 L* Bicarbonate Actual 19.9 L POC Total CO2 21 Base Excess -8 L O2 Saturation 89 L O2 % ABG pCO2 52.7 H ABG pO2 70 L Ray Test POS Respiration Rate O2 Delivery Device Nasal Can Liter Flow 9.0 EPAP Blood Gas Notified Whom [facility] MD Blood Gas Notified Time 517 Sodium Potassium Chloride Carbon Dioxide Anion Gap BUN Creatinine Estim Creat Clear Calc Est GFR (MDRD) Af Amer Est GFR (MDRD) Non-Af BUN/Creatinine Ratio Glucose Calcium Phosphorus Magnesium Total Bilirubin Direct Bilirubin AST ALT Alkaline Phosphatase Troponin I Total Protein Albumin Globulin Lipase Vancomycin Trough POC Glucose 107 92 09/26/18 09/26/18 09/26/18 16:28 21:25 21:50 WBC RBC Hgb Hct MCV MCH MCHC RDW RDW Differential Plt Count MPV Immature Gran % (Auto) Neut % (Auto) Lymph % (Auto) [place] % (Auto) Eos % (Auto) Baso % (Auto) Absolute Neuts (auto) Absolute Lymphs (auto) Total Counted Differential Comment Specimen Type Sample Site pH Bicarbonate Actual POC Total CO2 Base Excess O2 Saturation O2 % ABG pCO2 ABG pO2 Ray Test Respiration Rate O2 Delivery Device Liter Flow EPAP Blood Gas Notified Whom Blood Gas Notified Time Sodium Potassium Chloride Carbon Dioxide Anion Gap BUN Creatinine Estim Creat Clear Calc Est GFR (MDRD) Af Amer Est GFR (MDRD) Non-Af BUN/Creatinine Ratio Glucose Calcium Phosphorus Magnesium Total Bilirubin Direct Bilirubin AST ALT Alkaline Phosphatase Troponin I Total Protein Albumin Globulin Lipase Vancomycin Trough 18.4 H POC Glucose 120 H 141 H 09/27/18 09/27/1809/27/19 04:05 04:05 08:45 WBC 6.5 RBC 2.92 L Hgb 8.7 L Hct 30.3 L MCV 103.8 H MCH 29.8 MCHC 28.7 L RDW 16.6 H RDW Differential 60.6 H Plt Count 99 L MPV 9.6 Immature Gran % (Auto) 0.800 Neut % (Auto) 88.5 H Lymph % (Auto) 3.4 L [place] % (Auto) 4.2 Eos % (Auto) 2.9 Baso % (Auto) 0.2 Absolute Neuts (auto) 5.7 Absolute Lymphs (auto) 0.22 L Total Counted Not Reportable Differential Comment SCANNED Specimen Type Sample Site pH Bicarbonate Actual POC Total CO2 Base Excess O2 Saturation O2 % ABG pCO2 ABG pO2 Ray Test Respiration Rate O2 Delivery Device Liter Flow EPAP Blood Gas Notified Whom Blood Gas Notified Time Sodium 153 H Potassium 4.5 Chloride 124 H Carbon Dioxide 23.0 Anion Gap 6 BUN 64 H Creatinine 2.26 H Estim Creat Clear Calc 24.37 Est GFR (MDRD) Af Amer 28 L Est GFR (MDRD) Non-Af 23 L BUN/Creatinine Ratio 28.3 H Glucose 141 H Calcium 7.3 L Phosphorus 5.2 H Magnesium 1.8 Total Bilirubin Direct Bilirubin AST ALT Alkaline Phosphatase Troponin I Total Protein Albumin Globulin Lipase Vancomycin Trough POC Glucose 112 H 09/27/18 09/27/18 09:44 11:36 WBC RBC Hgb Hct MCV MCH MCHC RDW RDW Differential Plt Count MPV Immature Gran % (Auto) Neut % (Auto) Lymph % (Auto) [place] % (Auto) Eos % (Auto) Baso % (Auto) Absolute Neuts (auto) Absolute Lymphs (auto) Total Counted Differential Comment Specimen Type ART Sample Site L Radial pH 7.26 L Bicarbonate Actual 22.6 POC Total CO2 24 Base Excess -4 L O2 Saturation 98 O2 % 40 ABG pCO2 50.8 H ABG pO2 114 H Ray Test POS Respiration Rate 12 O2 Delivery Device Bi / C PAP Liter Flow EPAP 10 Blood Gas Notified Whom ICU MD Blood Gas Notified Time 933 Sodium Potassium Chloride Carbon Dioxide Anion Gap BUN Creatinine Estim Creat Clear Calc Est GFR (MDRD) Af Amer Est GFR (MDRD) Non-Af BUN/Creatinine Ratio Glucose Calcium Phosphorus Magnesium Total Bilirubin Direct Bilirubin AST ALT Alkaline Phosphatase Troponin I Total Protein Albumin Globulin Lipase Vancomycin Trough POC Glucose 107 Microbiology 09/24/18 20:25 Urine Catheter - Catheter Urine Culture - Final Culture exhibits no growth. 09/24/18 19:20 Blood Culture (Wb) - Anticubital Left Blood Culture - Preliminary No growth in 48 hours. 09/24/18 19:08 Blood Culture (Wb) - Right Hand Blood Culture - Preliminary No growth in 48 hours. 09/25/18 12:40 Urine Catheter - Catheter Legionella Antigen - Final 09/25/18 12:40 Urine Catheter - Catheter Streptococcus pneumoniae Antigen (M - Final 09/25/18 07:25 Mucosa - Nasopharyngeal Respiratory Panel (PCR) - Final Medical Necessity - Tobacco Use Smoking Status: Former smoker Tobacco Use: Non-smoker Assessment/Plan All Active Problems (Last Reviewed 07/30/18 @ 15:46 by Maria L Ortiz) Bilateral cellulitis of lower leg (Acute) Acute on chronic respiratory failure with hypoxemia (Acute) Flu-like symptoms (Acute) Hypoxia (Acute) Change in mental status (Acute) Encephalopathy (Acute) Hyperkalemia (Acute) BRBPR (bright red blood per rectum) (Resolved) C. difficile colitis (Resolved) Cholelithiasis (Resolved) Hyperkalemia (Resolved) RECOMMENDATIONS: 1. Continue BiPAP therapy. Wean as tolerated. 2. Diuresis per nephrology 3. Continue broad-spectrum antimicrobial coverage. 4. BiPAP breaks as tolerated 5. Continue appropriate ICU prophylaxis. 6. Physical therapy to work with the patient. IMPRESSIONS: 1. Acute hypoxemic and hypercarbic respiratory failure with concerns for underlying healthcare associated pneumonia The patient does have radiographic evidence of an underlying pulmonary infectious process and fever overnight. Patient likely also has an elevation of cardiac pressures complicating overall condition. Did discuss with nephrology this morning and patient will be initiated on diuretic therapy. Continue with broad-spectrum antibiotics. BiPAP breaks as tolerated. Would continue to use BiPAP with sleep. 2. Abnormal CT head Initial CT head revealed white matter ischemic changes of unclear chronicity. Repeat CT scan showed extensive sinus involvement. No bleeds have been noted. 3. Encephalopathy Improved. Likely metabolic in nature. 4. Troponin elevation/underlying heart failure with preserved ejection fraction/aortic valve stenosis/coronary artery disease Likely secondary to demand ischemia in the setting of #1. Cautious use of supplemental IV fluids, given valvular stenosis, pulmonary hypertension and diastolic dysfunction. Diuresis has been ordered. 5. Acute on chronic kidney disease/hyperkalemia Nephrology opinion appreciated. No current indication for renal replacement therapy. Continue medical management of the patient's elevated potassium level. 6. Obesity/hyperlipidemia/hypertension/diabetes/lower extremity cellulitis Complicates care, management, recovery and prognosis. The patient's diet can be advanced if she is able to be maintained off of BiPAP therapy today. TIME: 35 minutes of critical care time, independent of procedures, was spent addressing the patient's acute hypoxemic and hypercarbic respiratory failure, healthcare associated pneumonia, encephalopathy, aortic valve stenosis, acute on chronic kidney disease, review of all data and collaboration with the care team. (10 AM to 12:30 PM) Code Visit [id number]: [id number] Critical care first hour
[2018-09-27] MEDS: 0.9% NaCl Peripheral Flush Adult/Peds IV (13:53)
[2018-09-27] MEDS: Ferrous Gluconate 324 MG Tablet PO (18:06)
[2018-09-27 18:25] LABS: Bedside Glucose 101 mg/dL (70-110)
--- NOTE | 2018-09-27 18:58 | NURSING ---
reviewed laury RN charting and agree with assessment findings
[2018-09-27 23:51] LABS: Bedside Glucose 115 mg/dL (70-110)
[2018-09-28] VITALS (35 sets, daily range): BP systolic 106–144; BP diastolic 44–68; PULSE 65–148; RESP 14–28; TEMP 36.9–37.8; O2SAT 87–98
[2018-09-28] MEDS: Ipratropium/Albuterol Sulfate 3 ML AMPUL.NEB INHALATION ×4 (01:11→19:33)
[2018-09-28] MEDS: CHLORHEXIDINE GLUC 2% CLOTH 1 EACH TOWELETTE TOPICAL (01:43)
[2018-09-28] MEDS: amLODIPine 5 MG Tablet PO (03:42)
[2018-09-28] MEDS: 0.9% NaCl Peripheral Flush Adult/Peds IV ×4 (04:04→12:53)
[2018-09-28 05:26] LABS: Bedside Glucose 95 mg/dL (70-110)
[2018-09-28] MEDS: Furosemide 40 MG/4 ML Vial IV ×3 (05:58→21:00)
[2018-09-28 06:32] LABS: Absolute Lymphocyte Count 0.28 X10^3/ul (0.83-4.51); Absolute Neutrophil Count 5.2 X10^3/uL (2.0-7.7); Basophil# 0.01 X10^3/uL; Basophil% 0.2 % (0-1); Eosinophil# 0.34 X10^3/uL; Eosinophils% 5.6 % (0-5); Hematocrit 31.9 % (37-47); Hemoglobin 9.3 g/dl (12.0-15.0); Lymphocyte # 0.28 X10^3/ul (4.0); Lymphocyte % 4.6 % (19-41); Mean Corp Hgb Conc 29.2 g/gl (32-36); Mean Corpuscular Volume 102.9 fL (81-99); Mean Platelet Vol. 10.2 fl (6.2-12.0); Monocyte# 0.21 X10^3/uL; Monocyte% 3.5 % (0-10); Neutrophil # 5.17 X10^3/uL (2.7-7.7); Neutrophil % 85.6 % (47-70); Platelet Count 97 K/mm3 (150-450); RBC Distribution Width CV 16.6 % (11.6-14.6); RBC Distribution Width SD 62.4 fl (35.1-43.9)
[2018-09-28 06:33] LABS: Differential Indicated SCAN CRITERIA MET; POSITIVE COUNT NO; POSITIVE DIFFERENTIAL YES; POSITIVE MORPHOLOGY NO
[2018-09-28 06:41] LABS: Anion Gap 7 (5-15); BUN 58 mg/dL (7-18); Calcium,Total 7.6 mg/dL (8.5-10.1); Chloride 122 mmol/L (98-107); Creatinine, Serum 1.87 mg/dL (0.55-1.02); EST Glomerular Filtration Rate 29 mL/min (>60); Est Glom Filt Rate - Afr Amer 34 mL/min (>60); Estimated Creatinine Clearance 29.45 ml/min; Glucose 103 mg/dL (74-106); Magnesium 1.8 mg/dL (1.6-2.6); Phosphorus 4.5 mg/dL (2.5-4.9); Sodium Level 153 mmol/L (136-145)
--- NOTE | 2018-09-28 07:12 | PCM.PN.INT ---
Subjective: Patient did well overnight. No hemodynamic instability has been reported. Patient has been on 5 L nasal cannula for most of the evening. Nursing reports good response to diuretic therapy. Patient does report dyspnea, but feels she is slightly improved compared to previous. General: Alert, Oriented x3, Cooperative, No apparent distress, - - Very hard of hearing. Morbidly obese. HEENT: Atraumatic, PERRLA, EOMI, Normocephalic, - - No scleral icterus or injection noted. Oral: Moist Mucosa, No Gingival or Mucosal Lesions/ Ulcerations Neck: Supple, No JVD, No Nodes, Trachea Midline Lungs: No rhonchi, No wheeze, No rales, Diminished, - - Symmetric expansion. No dullness to percussion. Cardiovascular: Normal S1, Normal S2, Murmur, No rub noted, No Gallop, Tachycardic, - - Periodic SVT noted on telemetry. Spontaneous resolves Abdomen: Bowel Sounds Present, Soft, Non Tender, Non-Distended, Obese Extremities: No cyanosis, Clubbing, Edema Skin: - - No significant change compared to previous Musculoskeletal: No Tenderness to Palpation of Joints or Extremities Lymphatic: No Cervical, Supraclavicular, or Inguinal Adenopathy Neurological: Cranial nerves II-XII grossly intact, Neuro grossly intact, Motor Exam 5/5 strength throughout Psych/Mental Status: Appropriate, Flat Affect Vital Signs Temp Pulse Resp BP Pulse Ox 37.1 C 147 H 25 H 131/68 H 97 09/28/18 07:00 09/28/18 07:00 09/28/18 07:00 09/28/18 07:00 09/28/18 07:00 Oxygen Flow Rate (L/min) 5 Oxygen Delivery Method Nasal Cannula Weight: 107 kg Body Mass Index (BMI) 37.5 Finger Stick Blood Glucose 74 Intake and Output for Last 24 Hours 09/26/18 09/27/18 09/28/18 23:59 23:59 23:59 Intake Total 2389.1 / 2389.1 1432.7 / 1432.7 0 / 0 Output Total 1575 / 1575 2350 / 2350 900 / 900 Balance 814.1 / 814.1 -917.3 / -917.3 -900 / -900 Labs (Last 48 Hours) 09/26/18 09/26/18 09/26/18 01:25 01:25 11:30 WBC RBC Hgb Hct MCV MCH MCHC RDW RDW Differential Plt Count MPV Immature Gran % (Auto) Neut % (Auto) Lymph % (Auto) [place] % (Auto) Eos % (Auto) Baso % (Auto) Absolute Neuts (auto) Absolute Lymphs (auto) Total Counted Differential Comment Specimen Type Sample Site pH Bicarbonate Actual POC Total CO2 Base Excess O2 Saturation O2 % ABG pCO2 ABG pO2 Ray Test Respiration Rate O2 Delivery Device EPAP Blood Gas Notified Whom Blood Gas Notified Time Sodium Potassium Chloride Carbon Dioxide Anion Gap BUN Creatinine Estim Creat Clear Calc Est GFR (MDRD) Af Amer Est GFR (MDRD) Non-Af BUN/Creatinine Ratio Glucose Calcium Phosphorus Magnesium Total Bilirubin 0.50 Direct Bilirubin 0.22 AST 19 ALT 25 Alkaline Phosphatase 96 Troponin I 0.489 H Total Protein 5.0 L Albumin 1.9 L Globulin 3.1 Lipase 130 Vancomycin Trough POC Glucose 92 09/26/18 09/26/18 09/26/18 16:28 21:25 21:50 WBC RBC Hgb Hct MCV MCH MCHC RDW RDW Differential Plt Count MPV Immature Gran % (Auto) Neut % (Auto) Lymph % (Auto) [place] % (Auto) Eos % (Auto) Baso % (Auto) Absolute Neuts (auto) Absolute Lymphs (auto) Total Counted Differential Comment Specimen Type Sample Site pH Bicarbonate Actual POC Total CO2 Base Excess O2 Saturation O2 % ABG pCO2 ABG pO2 Ray Test Respiration Rate O2 Delivery Device EPAP Blood Gas Notified Whom Blood Gas Notified Time Sodium Potassium Chloride Carbon Dioxide Anion Gap BUN Creatinine Estim Creat Clear Calc Est GFR (MDRD) Af Amer Est GFR (MDRD) Non-Af BUN/Creatinine Ratio Glucose Calcium Phosphorus Magnesium Total Bilirubin Direct Bilirubin AST ALT Alkaline Phosphatase Troponin I Total Protein Albumin Globulin Lipase Vancomycin Trough 18.4 H POC Glucose 120 H 141 H 09/27/18 09/27/18 09/27/18 04:05 04:05 08:45 WBC 6.5 RBC 2.92 L Hgb 8.7 L Hct 30.3 L MCV 103.8 H MCH 29.8 MCHC 28.7 L RDW 16.6 H RDW Differential 60.6 H Plt Count 99 L MPV 9.6 Immature Gran % (Auto) 0.800 Neut % (Auto) 88.5 H Lymph % (Auto) 3.4 L [place] % (Auto) 4.2 Eos % (Auto) 2.9 Baso % (Auto) 0.2 Absolute Neuts (auto) 5.7 Absolute Lymphs (auto) 0.22 L Total Counted Not Reportable Differential Comment SCANNED Specimen Type Sample Site pH Bicarbonate Actual POC Total CO2 Base Excess O2 Saturation O2 % ABG pCO2 ABG pO2 Ray Test Respiration Rate O2 Delivery Device EPAP Blood Gas Notified Whom Blood Gas Notified Time Sodium 153 H Potassium 4.5 Chloride 124 H Carbon Dioxide 23.0 Anion Gap 6 BUN 64 H Creatinine 2.26 H Estim Creat Clear Calc 24.37 Est GFR (MDRD) Af Amer 28 L Est GFR (MDRD) Non-Af 23 L BUN/Creatinine Ratio 28.3 H Glucose 141 H Calcium 7.3 L Phosphorus 5.2 H Magnesium 1.8 Total Bilirubin Direct Bilirubin AST ALT Alkaline Phosphatase Troponin I Total Protein Albumin Globulin Lipase Vancomycin Trough POC Glucose 112 H 09/27/18 09/27/18 09/27/18 09:44 11:36 18:05 WBC RBC Hgb Hct MCV MCH MCHC RDW RDW Differential Plt Count MPV Immature Gran % (Auto) Neut % (Auto) Lymph % (Auto) [place] % (Auto) Eos % (Auto) Baso % (Auto) Absolute Neuts (auto) Absolute Lymphs (auto) Total Counted Differential Comment Specimen Type ART Sample Site L Radial pH 7.26 L Bicarbonate Actual 22.6 POC Total CO2 24 Base Excess -4 L O2 Saturation 98 O2 % 40 ABG pCO2 50.8 H ABG pO2 114 H Ray Test POS Respiration Rate 12 O2 Delivery Device Bi / C PAP EPAP 10 Blood Gas Notified Whom ICU MD Blood Gas Notified Time 933 Sodium Potassium Chloride Carbon Dioxide Anion Gap BUN Creatinine Estim Creat Clear Calc Est GFR (MDRD) Af Amer Est GFR (MDRD) Non-Af BUN/Creatinine Ratio Glucose Calcium Phosphorus Magnesium Total Bilirubin Direct Bilirubin AST ALT Alkaline Phosphatase Troponin I Total Protein Albumin Globulin Lipase Vancomycin Trough POC Glucose 107 101 09/27/18 09/28/18 09/28/18 23:46 05:20 06:10 WBC 6.0 RBC 3.10 L Hgb 9.3 L Hct 31.9 L MCV 102.9 H MCH 30.0 MCHC 29.2 L RDW 16.6 H RDW Differential 62.4 H Plt Count 97 L MPV 10.2 Immature Gran % (Auto) 0.500 Neut % (Auto) 85.6 H Lymph % (Auto) 4.6 L [place] % (Auto) 3.5 Eos % (Auto) 5.6 H Baso % (Auto) 0.2 Absolute Neuts (auto) 5.2 Absolute Lymphs (auto) 0.28 L Total Counted Not Reportable Differential Comment Specimen Type Sample Site pH Bicarbonate Actual POC Total CO2 Base Excess O2 Saturation O2 % ABG pCO2 ABG pO2 Ray Test Respiration Rate O2 Delivery Device EPAP Blood Gas Notified Whom Blood Gas Notified Time Sodium Potassium Chloride Carbon Dioxide Anion Gap BUN Creatinine Estim Creat Clear Calc Est GFR (MDRD) Af Amer Est GFR (MDRD) Non-Af BUN/Creatinine Ratio Glucose Calcium Phosphorus Magnesium Total Bilirubin Direct Bilirubin AST ALT Alkaline Phosphatase Troponin I Total Protein Albumin Globulin Lipase Vancomycin Trough POC Glucose 115 H 95 09/28/18 06:10 WBC RBC Hgb Hct MCV MCH MCHC RDW RDW Differential Plt Count MPV Immature Gran % (Auto) Neut % (Auto) Lymph % (Auto) [place] % (Auto) Eos % (Auto) Baso % (Auto) Absolute Neuts (auto) Absolute Lymphs (auto) Total Counted Differential Comment Specimen Type Sample Site pH Bicarbonate Actual POC Total CO2 Base Excess O2 Saturation O2 % ABG pCO2 ABG pO2 Ray Test Respiration Rate O2 Delivery Device EPAP Blood Gas Notified Whom Blood Gas Notified Time Sodium 153 H Potassium 4.0 Chloride 122 H Carbon Dioxide 24.0 Anion Gap 7 BUN 58 H Creatinine 1.87 H Estim Creat Clear Calc 29.45 Est GFR (MDRD) Af Amer 34 L Est GFR (MDRD) Non-Af 29 L BUN/Creatinine Ratio 31.0 H Glucose 103 Calcium 7.6 L Phosphorus 4.5 Magnesium 1.8 Total Bilirubin Direct Bilirubin AST ALT Alkaline Phosphatase Troponin I Total Protein Albumin Globulin Lipase Vancomycin Trough POC Glucose Microbiology 09/24/18 20:25 Urine Catheter - Catheter Urine Culture - Final Culture exhibits no growth. 09/24/18 19:20 Blood Culture (Wb) - Anticubital Left Blood Culture - Preliminary No growth in 48 hours. 09/24/18 19:08 Blood Culture (Wb) - Right Hand Blood Culture - Preliminary No growth in 48 hours. Medical Necessity - Tobacco Use Smoking Status: Former smoker Tobacco Use: Non-smoker Assessment/Plan All Active Problems (Last Reviewed 07/30/18 @ 15:46 by Maria L Ortiz) Bilateral cellulitis of lower leg (Acute) Acute on chronic respiratory failure with hypoxemia (Acute) Flu-like symptoms (Acute) Hypoxia (Acute) Change in mental status (Acute) Encephalopathy (Acute) Hyperkalemia (Acute) BRBPR (bright red blood per rectum) (Resolved) C. difficile colitis (Resolved) Cholelithiasis (Resolved) Hyperkalemia (Resolved) RECOMMENDATIONS: 1. Continue BiPAP therapy with sleep. Wean as tolerated. 2. Diuresis per nephrology 3. Continue broad-spectrum antimicrobial coverage. 4. Wean oxygen as tolerated 5. Continue appropriate ICU prophylaxis. 6. Physical therapy to work with the patient. IMPRESSIONS: 1. Acute hypoxemic and hypercarbic respiratory failure with concerns for underlying healthcare associated pneumonia The patient does have radiographic evidence of an underlying pulmonary infectious process and fever previously. Patient likely also has an elevation of cardiac pressures complicating overall condition. Did discuss with nephrology this morning and patient will be initiated on diuretic therapy. Continue with broad-spectrum antibiotics. BiPAP breaks as tolerated. Would continue to use BiPAP with sleep. Patient appears to be responding well to Lasix therapy. 2. Abnormal CT head Initial CT head revealed white matter ischemic changes of unclear chronicity. Repeat CT scan showed extensive sinus involvement. No bleeds have been noted. 3. Encephalopathy Improved. Likely metabolic in nature. Complicated by underlying hearing loss. 4. Troponin elevation/underlying heart failure with preserved ejection fraction/aortic valve stenosis/coronary artery disease Likely secondary to demand ischemia in the setting of #1. Cautious use of supplemental IV fluids, given valvular stenosis, pulmonary hypertension and diastolic dysfunction. Diuresis has been ordered. 5. Acute on chronic kidney disease/hyperkalemia Nephrology opinion appreciated. No current indication for renal replacement therapy. Continue medical management of the patient's elevated potassium level. Patient appears to be responding to diuresis appropriately. 6. Obesity/hyperlipidemia/hypertension/diabetes/lower extremity cellulitis Complicates care, management, recovery and prognosis. The patient's diet can be advanced if she is able to be maintained off of BiPAP therapy today. Code Visit Inpatient E&M: [id number] [place] [id number]
--- NOTE | 2018-09-28 07:52 | PCM.PN.HOSP ---
Patient Problems: Active and Suspected Problems (Last Reviewed 07/30/18 @ 15:46 by Maria L Ortiz) Hypoxia (Acute) Change in mental status (Acute) Encephalopathy (Acute) Hyperkalemia (Acute) PSVT (paroxysmal supraventricular tachycardia) (Acute) Subjective: She was seen and examined. She has improved today. On nasal cannula oxygen. She was noted to have episodes of runs of tachycardia, with recent episodes of SVT with HR in the 200s. Cardiology was consulted, started on Cardizem. She however denies any chest pain or dizziness Objective: General: Alert, Cooperative, No apparent distress, Confused HEENT: Atraumatic, PERRLA, EOMI, Normocephalic Oral: Moist Mucosa Neck: Supple Lungs: Diminished Cardiovascular: Regular rate, Regular Rhythm, Normal S1, Normal S2, No murmurs Abdomen: Bowel Sounds Present, Soft, Non Tender, Non-Distended, No Hepato-splenomegaly Extremities: Bilateral leg edema as well as bilateral hands, +3-4 Skin: - - Bilateral lower extremities edema +3 with erythema and areas of ulceration, worse on the right Musculoskeletal: No Tenderness to Palpation of Joints or Extremities Lymphatic: No Cervical, Supraclavicular, or Inguinal Adenopathy Neurological: Cranial nerves II-XII grossly intact Psych/Mental Status: Normal Affect, Appropriate Vitals/I&O's: Vital Signs Temp Pulse Resp BP Pulse Ox 98.5 F 90 25 H 131/68 H 96 09/28/18 07:49 09/28/18 07:49 09/28/18 07:49 09/28/18 07:49 09/28/18 07:49 Oxygen Flow Rate (L/min) 5 Oxygen Delivery Method Nasal Cannula Weight: 107 kg Body Mass Index (BMI) 37.5 Finger Stick Blood Glucose 74 Intake and Output for Last 24 Hours 09/26/18 09/27/18 09/28/18 23:59 23:59 23:59 Intake Total 2389.1 / 2389.1 1432.7 / 1432.7 0 / 0 Output Total 1575 / 1575 2350 / 2350 900 / 900 Balance 814.1 / 814.1 -917.3 / -917.3 -900 / -900 Microbiology Past 72 Hours 09/24/18 20:25 Urine Catheter - Catheter Urine Culture - Final Culture exhibits no growth. 09/24/18 19:20 Blood Culture (Wb) - Anticubital Left Blood Culture - Preliminary No growth in 48 hours. 09/24/18 19:08 Blood Culture (Wb) - Right Hand Blood Culture - Preliminary No growth in 48 hours. 09/25/18 12:40 Urine Catheter - Catheter Legionella Antigen - Final 09/25/18 12:40 Urine Catheter - Catheter Streptococcus pneumoniae Antigen (M - Final 09/25/18 07:25 Mucosa - Nasopharyngeal Respiratory Panel (PCR) - Final Laboratory Results 09/27/18 08:45: POC Glucose 112 H 09/27/18 09:44: Specimen Type ART, Sample Site L Radial, pH 7.26 L, Bicarbonate Actual 22.6, POC Total CO2 24, Base Excess -4 L, O2 Saturation 98, O2 % 40, ABG pCO2 50.8 H, ABG pO2 114 H, Ray Test POS, Respiration Rate 12, O2 Delivery Device Bi / C PAP, EPAP 10, Blood Gas Notified Whom ICU , Blood Gas Notified Time 933 09/27/18 11:36: POC Glucose 107 09/27/18 18:05: POC Glucose 101 09/27/18 23:46: POC Glucose 115 H 09/28/18 05:20: POC Glucose 95 09/28/18 06:10: WBC 6.0, RBC 3.10 L, Hgb 9.3 L, Hct 31.9 L, MCV 102.9 H, MCH 30.0, MCHC 29.2 L, RDW 16.6 H, RDW Differential 62.4 H, Plt Count 97 L, MPV 10.2, Immature Gran % (Auto) 0.500, Neut % (Auto) 85.6 H, Lymph % (Auto) 4.6 L, [place] % (Auto) 3.5, Eos % (Auto) 5.6 H, Baso % (Auto) 0.2, Absolute Neuts (auto) 5.2, Absolute Lymphs (auto) 0.28 L, Total Counted Not Reportable, Differential Comment 09/28/18 06:10: Sodium 153 H, Potassium 4.0, Chloride 122 H, Carbon Dioxide 24.0, Anion Gap 7, BUN 58 H, Creatinine 1.87 H, Estim Creat Clear Calc 29.45, Est GFR (MDRD) Af Amer 34 L, Est GFR (MDRD) Non-Af 29 L, BUN/Creatinine Ratio 31.0 H, Glucose 103, Calcium 7.6 L, Phosphorus 4.5, Magnesium 1.8 Current Medications Acetaminophen (Tylenol) 650 mg RECTAL Q6H PRN PRN PRN Reason: pain/fever Last Admin: 09/25/18 21:45 Dose: 650 mg Acetaminophen (Tylenol) 650 mg PO Q6H PRN PRN PRN Reason: Pain/fever Last Admin: 09/26/18 23:40 Dose: 650 mg Albuterol/Ipratropium (Duoneb) 3 ml INHALATION Q6H.RT [facility] Last Admin: 09/28/18 06:48 Dose: 3 ml Amlodipine Besylate (Norvasc) 5 mg PO DAILY [facility] Last Admin: 09/28/18 03:42 Dose: 5 mg Ascorbic Acid (Vitamin C) 500 mg PO DAILY@0800 [facility] Chlorhexidine Gluconate () 1 each TOPICAL DAILY [facility] Last Admin: 09/28/18 01:43 Dose: 1 each Clopidogrel Bisulfate (Plavix) 75 mg PO DAILY [facility] Enoxaparin Sodium (Lovenox) 30 mg SC DAILY@1000 [facility] Last Admin: 09/27/18 09:00 Dose: 30 mg Ferrous Gluconate (Ferrous Gluconate) 324 mg PO BIDCM [facility] Last Admin: 09/27/18 18:06 Dose: 324 mg Fluticasone Propionate (Flonase Nasal [place]) 2 spray NASAL DAILY [facility] Furosemide (Lasix) 40 mg IV TID [facility] Last Admin: 09/28/18 05:58 Dose: 40 mg Sodium Chloride () 250 mls @ 15 mls/hr IV .[id number] PRN PRN Reason: SALINE FLUSH Vancomycin IV Pharmacy to Dose (1 ea/ Sodium Chloride) 500 mls @ 250 mls/hr IV X1 PRN; Protocol PRN Reason: Rx to Dose Vancomycin HCl 1,500 mg/ (Sodium Chloride) 530 mls @ 250 mls/hr IV Q24H [facility] Last Admin: 09/27/18 20:59 Dose: 250 mls/hr Cefepime HCl 1 gm/ Sodium (Chloride) 50 mls @ 100 mls/hr IV Q12 [facility] Last Admin: 09/27/18 20:58 Dose: 100 mls/hr Magnesium Sulfate 2 gm/ Sodium (Chloride) 104 mls @ 52 mls/hr IV X1 ONE Stop: 09/28/18 09:49 Insulin Human Lispro (Humalog Kwikpen (Bkc)) 0 unit SC Q6 [facility]; Protocol Last Admin: 09/28/18 05:52 Dose: Not Given Isosorbide Mononitrate (Imdur) 60 mg PO DAILY [facility] Lactobacillus Acidophilus (Acidophilus) 1 tablet PO BID [facility] Last Admin: 09/27/18 20:58 Dose: 1 tablet Magnesium Hydroxide (Milk Of Magnesia) 30 ml PO DAILY PRN PRN PRN Reason: Constipation Metoprolol Tartrate (Lopressor (Beta Richard)) 100 mg PO BID [facility] Montelukast Sodium (Singulair) 10 mg PO QHS [facility] Nitroglycerin (Nitrostat) 0.4 mg SUBLINGUAL Q5M PRN PRN Reason: Chest Pain Non-Formulary Medication (Multivitamin With Minerals [Multiple Vitamin]) 1 each PO DAILY [facility] Non-Formulary Medication (Rosuvastatin Calcium) 2.5 mg PO QHS [facility] Prednisone () 5 mg PO DAILY [facility] Sodium Chloride () 5 - 15 ml IV UD PRN PRN Reason: SALINE FLUSH Last Admin: 09/28/18 05:58 Dose: 10 ml Medical Necessity - Tobacco Use Smoking Status: Former smoker Tobacco Use: Non-smoker Assessment/Plan All Active Problems (Last Reviewed 07/30/18 @ 15:46 by Maria L Ortiz) Bilateral cellulitis of lower leg (Acute) Acute on chronic respiratory failure with hypoxemia (Acute) Flu-like symptoms (Acute) Hypoxia (Acute) Change in mental status (Acute) Encephalopathy (Acute) Hyperkalemia (Acute) PSVT (paroxysmal supraventricular tachycardia) (Acute) BRBPR (bright red blood per rectum) (Resolved) C. difficile colitis (Resolved) Cholelithiasis (Resolved) Hyperkalemia (Resolved) 67-year-old female was admitted from SNF with hypoxia and mental status and has been admitted to the ICU managed at acute hypoxic and hypercapnic respiratory failure. 1. Tachycardia, paroxysmal SVTs, rate controlled now, started on Cardizem, continued on metoprolol, Magnesium has been replaced, will continue to monitor on telemetry 2. Acute hypoxic/hypercarbic combined respiratory failure secondary to acute on chronic diastolic CHF/HCAP, improved Will continue on BiPAP QHS and prn 3. Acute on chronic diastolic CHF/pulmonary hypertension/valvular heart disease, improving Diuresing well with Lasix 40 mg 3 times daily, continue same 4. Acute metabolic/infectious encephalopathy, improved, patient still intermittently confused 5. Healthcare acquired pneumonia, likely secondary to suspected gram-negative organism and possible MRSA Continue on vancomycin and cefepime 6. KIM on CKD stage III, Cr is improved nephrology following, will monitor creatinine whilst on diuretics 7. Hypernatremia, secondary to dehydration, asymptomatic, will continue to monitor, repeat blood work in a.m. 8. CAD s/p 3-vessel CABG/PAD, on plavix, Imdur, nitro prn 9. Hyperlipidemia, off statins for now 10. Hypertension, controlled on metoprolol, continue to monitor 11. DVT PPx- Lovenox SC Code Visit Inpatient E&M: 42645 Subs Hosp L2
[2018-09-28] MEDS: Ascorbic Acid 500 MG Tablet PO (08:17)
[2018-09-28] MEDS: Enoxaparin 30 MG/0.3 ML Syringe SC (08:17)
[2018-09-28] MEDS: Clopidogrel Bisulfate 75 MG Tablet PO (08:17)
[2018-09-28] MEDS: Ferrous Gluconate 324 MG Tablet PO ×2 (08:17→17:46)
[2018-09-28] MEDS: Metoprolol Tartrate 100 MG Tablet PO ×2 (08:22→21:00)
[2018-09-28] MEDS: predniSONE 5 MG Tablet PO (08:23)
[2018-09-28] MEDS: Isosorbide Mononitrate 60 MG Tablet PO (08:23)
--- NOTE | 2018-09-28 10:43 | CON.PCM_ITS ---
Problem List (1) PSVT (paroxysmal supraventricular tachycardia) Status: Acute (2) CAD (coronary artery disease) Status: Chronic Qualifiers: Coronary Disease-Associated Artery/Lesion type: [place] artery [place] vs. transplanted heart: [place] heart (3) S/P PTCA (percutaneous transluminal coronary angioplasty) Status: Chronic (4) H/O coronary artery bypass surgery Status: Chronic Comment: CABG x 3 STORY-LAD, SVG-RCA, SVG-Cx 2007 (5) Valvular heart disease Status: Chronic (6) Hyperlipidemia Status: Chronic Qualifiers: Hyperlipidemia type: unspecified Qualified Code(s): E78.5 - Hyperlipidemia, unspecified (7) Hypertension Status: Chronic Qualifiers: Hypertension type: essential hypertension Qualified Code(s): I10 - Essential (primary) hypertension (8) COPD (chronic obstructive pulmonary disease) Status: Chronic (9) Secondary pulmonary arterial hypertension Status: Chronic Reason for Consult Date of Consultation: 09/28/18 History of Present Illness: The patient is a 67 year old female with a past medical history which has included underlying hyperlipidemia, hypertension, CAD, CABG, valvular heart disease with mitral valve disease/stenosis and aortic valve disease/stenosis, superimposed on diabetes mellitus, who is being evaluated for COPD exacerbation and now referred for further evaluation for PSVT. The patient has been in the ICU undergoing evaluation and care for a COPD exacerbation. She has been having intermittent episodes of a PSVT which based upon the cardiac rhythm strips may be compatible with an ectopic atrial tachycardia. She apparently has been unaware of the palpitations/rapid heart rates. She has had no obvious hemodynamic compromise. She denies any other forms of chest discomfort or worsening shortness of breath/dyspnea. There is been no reports of near syncope or syncope. Overall she believes she is improving with respect to her respiratory status. She has had cardiac enzymes. Her troponin I levels have been indeterminant. Her ECG is demonstrated sinus rhythm with nonspecific ST and T wave abnormality. A transthoracic echocardiogram was performed. The results are as noted below. A chest x-ray has showed patchy infiltrates. [] Past Medical History Allergies/Adverse Reactions: Allergies Penicillins Allergy (Verified 07/30/18 15:47) Rash rosiglitazone maleate [From Avandia] Allergy (Verified 07/30/18 15:47) Swelling & diarrhea simvastatin [From Zocor] Allergy (Verified 07/30/18 15:47) Muscle weakness atorvastatin calcium [From Lipitor] Adverse Reaction (Verified 07/30/18 15:47) Muscle weakness esomeprazole magnesium [From Nexium] Adverse Reaction (Verified 07/30/18 15:47) Diarrhea lansoprazole [From Prevacid] Adverse Reaction (Verified 07/30/18 15:47) Diarrhea Sulfa (Sulfonamide Antibiotics) Adverse Reaction (Verified 07/30/18 15:47) Nausea/Vom/Diarrhea from PCP office records Home Medications: Ambulatory Orders Medication Instructions Recorded Aspirin [Aspirin, Baby] 81 mg PO DAILY@0800 10/20/14 Metoprolol Tartrate [Lopressor 100 mg PO BID 10/21/14 (beta apryl)] Pantoprazole Sodium [Protonix] 40 mg PO BID 10/21/14 Rosuvastatin Calcium [Crestor] 2.5 mg PO QHS 10/21/14 Nitroglycerin [Nitrostat] 0.4 mg SUBLINGUAL Q5M PRN 11/24/14 Ergocalciferol [Vitamin D] 50,000 units PO SA 02/16/16 Niacinamide [Niacin] 500 mg PO BID 02/16/16 Montelukast Sodium [Singulair] 10 mg PO QHS 05/06/16 Ondansetron [Zofran Odt] 8 mg PO Q6H PRN PRN 03/31/17 Amlodipine [Norvasc] 5 mg PO DAILY 10/12/17 Alpha Lipoic Acid 600 mg PO QHS 01/24/18 Acetaminophen [Tylenol Tablet] 650 mg PO Q6H PRN PRN tab 01/28/18 Albuterol Aerosols [Ventolin 2.5 mg INHALATION Q2H PRN PRN 01/28/18 Aerosols] vial.neb. Cetirizine HCl [Zyrtec] 10 mg PO DAILY PRN 03/17/18 Bisacodyl [Dulcolax] 10 mg RECTAL DAILY PRN PRN 03/18/18 Guaifenesin [Robitussin] 10 ml PO Q4H PRN PRN 03/18/18 Magnesium Hydroxide [Milk Of 30 ml PO DAILY PRN PRN udc 03/20/18 Magnesia] Menthol/Lanolin/Calamine/Znox 1 applic TOPICAL TID tube 03/20/18 [Calmoseptine Ointment] Senna/Docusate Sodium [Senokot-S] 2 tab PO BID PRN tab 03/20/18 Ascorbic Acid [Vitamin C] 500 mg PO DAILY@0800 09/25/18 Clopidogrel Bisulfate [Plavix] 75 mg PO DAILY 09/25/18 Ferrous Gluconate 325 mg PO BIDCM 09/25/18 Fluticasone 0.05% [Flonase Nasal 2 spray NASAL DAILY 09/25/18 [place]] Insulin Glargine [Lantus SoloStar 38 units SC QHS 09/25/18 Pen] Insulin Lispro [Humalog KwikPen] 10 unit SQ DINNER 09/25/18 Insulin Lispro [Humalog KwikPen] 10 unit SQ LUNCH 09/25/18 Insulin Lispro [Humalog KwikPen] 12 unit SQ BREAKFAST 09/25/18 Insulin Lispro [Humalog KwikPen] See Protocol SQ ACHS 09/25/18 Isosorbide Mononitrate [Imdur] 60 mg PO DAILY 09/25/18 L. Rhamnosus GG/Inulin [Culturelle 1 each PO BID 09/25/18 Probiotics Capsule] Multivitamin with Minerals 1 each PO DAILY 09/25/18 [Multiple Vitamin] Nystatin Powder [Mycostatin Powder] 1 applic TOPICAL TID 09/25/18 Prednisone 5 mg PO DAILY 09/25/18 Past Medical History (Chronic Problems): Chronic Problems (Last Reviewed 07/30/18 @ 15:46 by Maria L Ortiz) Acute kidney injury superimposed on CKD (Chronic) CAD (coronary artery disease) (Chronic) Valvular heart disease (Chronic) COPD (chronic obstructive pulmonary disease) (Chronic) S/P PTCA (percutaneous transluminal coronary angioplasty) (Chronic) Hyperlipidemia (Chronic) Hypertension (Chronic) H/O coronary artery bypass surgery (Chronic ~2007) CABG x 3 STORY-LAD, SVG-RCA, SVG-Cx 2007 Atherosclerosis of coronary artery of [place] heart without angina pectoris (Chronic) CABG x 3 STORY-LAD, SVG-RCA, SVG-Cx 2007 Nonrheumatic tricuspid valve regurgitation (Chronic) Secondary pulmonary arterial hypertension (Chronic) Non-rheumatic aortic stenosis (Chronic) Ulcer of right lower extremity with fat layer exposed (Chronic) anterior lower extremity ulcer Venous insufficiency of both lower extremities (Chronic) Other specified peripheral vascular diseases (Chronic) Ulcer of left lower extremity with fat layer exposed (Chronic) Delayed wound healing (Chronic) Maceration of skin (Chronic) Type 2 diabetes mellitus with diabetic peripheral angiopathy without gangrene (Chronic) Lymphedema in adult patient (Chronic) Noncompliance with treatment regimen (Chronic) Pulmonary nodules (Chronic) Obesity (BMI 30.0-34.9) (Chronic) 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) Thrombocytopenia (Chronic) Surgical History: coronary bypass surgery, - Psychiatric History: No pertinent psych hx HOT BOX CHECKER History: No pertinent HOT BOX CHECKER history - *Family History Sibling Family History: Family History (Last Reviewed 07/30/18 @ 15:46 by Maria L Ortiz) Other CAD (coronary artery disease) History Items: Heart Disease Maternal Family History: Family History (Last Reviewed 07/30/18 @ 15:46 by Maria L Ortiz) Other CAD (coronary artery disease) History Items: No pertinent history Paternal Family History: Family History (Last Reviewed 07/30/18 @ 15:46 by Maria L Ortiz) Other CAD (coronary artery disease) History Items: No pertinent history Lives: [facility] Smoking Status: Former smoker Tobacco Use: Non-smoker Alcohol: None Drugs: None Review of Systems - Review of Systems General: Denies: Fever, Night Sweats, Fatigue HEENT: Reports: - - Hard of hearing Cardiovascular: Reports: Shortness of Breath. Denies: Chest Discomfort, Orthopnea, PND, Peripheral Edema, Palpitations, Lightheadedness, Dizziness, Near Syncope, Syncope Respiratory: Reports: Shortness of Breath. Denies: Cough, Sputum Production, Hemoptysis Gastrointestinal: Denies: Hematemesis, Hematochezia, Melena Genitourinary: Denies: Dysuria, Hematuria Skin: Denies: Rash Subjectve: This is a 67-year-old white female who appears to be resting comfortably at the moment in no acute distress. Objective: Vital Signs Temp Pulse Resp BP Pulse Ox 98.7 F 90 24 H 135/63 H 96 09/28/18 09:00 09/28/18 09:00 09/28/18 09:00 09/28/18 09:00 09/28/18 09:00 Oxygen Flow Rate (L/min) 6 Oxygen Delivery Method Nasal Cannula Weight: 235 lb 14.314 oz Body Mass Index (BMI) 37.5 Finger Stick Blood Glucose 74 Intake and Output for Last 24 Hours 09/26/18 09/27/18 09/28/18 23:59 23:59 23:59 Intake Total 2389.1 / 2389.1 1432.7 / 1432.7 0 / 0 Output Total 1575 / 1575 2350 / 2350 900 / 900 Balance 814.1 / 814.1 -917.3 / -917.3 -900 / -900 General: Awake, Alert, Oriented x 3, Cooperative, No Acute Distress HEENT: Atraumatic, Normocephalic, PERRL, - Oral: Moist Mucosa Neck: Supple, Good ROM, No JVD Lungs: - - No obvious rales or rhonchi Cardiovascular: Regular Rhythm, Normal S1, Normal S2 Abdomen: Bowel Sounds Present, Soft, Non Tender Extremities: - - Bilateral lower extremities and [place] wraps 09/28/18 06:10: WBC 6.0, RBC 3.10 L, Hgb 9.3 L, Hct 31.9 L, MCV 102.9 H, MCH 30.0, MCHC 29.2 L, RDW 16.6 H, RDW Differential 62.4 H, Plt Count 97 L, MPV 10.2, Immature Gran % (Auto) 0.500, Neut % (Auto) 85.6 H, Lymph % (Auto) 4.6 L, [place] % (Auto) 3.5, Eos % (Auto) 5.6 H, Baso % (Auto) 0.2, Absolute Neuts (auto) 5.2, Total Counted Not Reportable 09/28/18 06:10: Sodium 153 H, Potassium 4.0, Chloride 122 H, Carbon Dioxide 24.0, Anion Gap 7, BUN 58 H, Creatinine 1.87 H, Est GFR (MDRD) Af Amer 34 L, Est GFR (MDRD) Non-Af 29 L, BUN/Creatinine Ratio 31.0 H, Glucose 103, Calcium 7.6 L, Phosphorus 4.5, Magnesium 1.8 Rhythm: Sinus rhythm; episodes of a narrow complex tachycardia appearing potentially compatible with an ectopic atrial tachycardia EKG: As noted above ECHO: Interpretation Summary The study was technically difficult. Left ventricular systolic function is normal. The estimated ejection fraction is 65 %. The left atrium is mildly enlarged. There is mild mitral annular calcification. Extension of the mitral annular calcification onto the posterior mitral valve leaflet. Mild diffuse mitral valve thickening. The mitral valve chordae are thickened and/or calcified. Mild mitral valve stenosis. Trivial mitral valve insufficiency. Moderate to severe aortic valve stenosis. Mild-Moderate (1-2+) pulmonic valve insufficiency. Calcified aortic root. Right ventricular systolic pressure estimated to be 94 mmHg c/w severe pulmonary hypertension. Transmitral diastolic flow velocities suggest diastolic dysfunction (pseudonormal pattern). Stress Test: Cardiac Cath: 10-15-17 Left ventricle considered normal with an LVEF 55%; left main with 40-50% stenosis; LAD with moderate luminal irregularities up to 50%; first diagonal branch stented and patent; LCx with mild luminal irregularities less than 30%; RCA with proximal 50% stenosis and mid 40% stenosis; STORY to the LAD patent; SVG to the LCx occluded; SVG to the RCA patent; right atrial mean pressure of 18 mmHg; right ventricular pressure 68/8 mmHg; PA pressure 77/21 mmHg with a PA mean pressure 42 mmHg; pulmonary capillary wedge pressure mean of [address] Surgery: [place] 8 STORY to the LAD, SVG to the LCx, SVG to the RCA Assessment/Plan 1. PSVT The patient has had episodes of a PSVT. It appears potentially compatible with an ectopic atrial tachycardia. This may be brought out by the patient's underlying COPD exacerbation. At the present time she is being monitored. She has been on rate control therapy with metoprolol tartrate at 100 mg twice daily. It may be reasonable to attempt additional rate control therapy with a calcium channel antagonist. Thus she will be placed on diltiazem at 30 mg p.o. every 6 hours. She will be monitored for any significant change in rate and/or rhythm and her blood pressure. If she tolerates this then the dose can be increased and changed to a sustained release dose. Over time, depending upon her clinical course, consideration will be given as to whether or not she is a candidate for EPS/RFA. 2. CAD status post PCI and CABG She does have a history of CAD and CABG. It appears she is also had a history of PCI. At the present time she is without any acute symptoms. Her troponin I levels have been indeterminate. These may be a type II secondary event brought out by her COPD exacerbation. Her ECG is demonstrated no new acute changes. Her transthoracic echocardiogram just demonstrates preserved left ventricular size, wall motion, and systolic function. At the present time she will continue medical management. It is not felt she is required further invasive cardiovascular evaluation or care at this time. This could change depending upon her clinical course. 3. Valvular heart disease She does have valvular heart disease. She has evidence of both mitral valve stenosis and aortic valve stenosis. At the present time she is continuing medical management. She is being followed. If her clinical course warrants over time she may need to be considered for percutaneous intervention of her valvular heart disease. With her aortic valve disease this could, in the form of a transcatheter aortic valve replacement procedure versus a repeat open heart surgery procedure. 4. Hyperlipidemia The patient will continue risk factor evaluation and care. 5. Hypertension The patient will continue medical therapy with adjustment as deemed appropriate. 6. COPD exacerbation The patient is being evaluated and cared for by internal medicine and pulmonology. 7. Pulmonary hypertension The patient does have evidence of marked pulmonary hypertension based upon her previous invasive and her recent noninvasive studies. This may be secondary to a combination of her underlying pulmonary disease process as well as potentially related to her underlying valvular heart disease. At the present time she will need continued medical management and support. Comment: The patient's case has been discussed and reviewed with the patient, Dr. Gipson, and her primary marketing research analyst Dr. Leslie. This note was generated with [employer] dictation software. It may contain incorrect words, spelling, and punctuation that were not noted in checking the note before signing.
[2018-09-28] MEDS: Fluticasone 0.05% 1 SPRAY NASAL.SRY 2 SPRAY NASAL (10:54)
[2018-09-28] MEDS: Insulin Lispro 100 UNIT/ML INSULN.PEN SC ×3 (12:49→23:19)
[2018-09-28 12:50] LABS: Bedside Glucose 225 mg/dL (70-110)
[2018-09-28] MEDS: dilTIAZem 30 MG Tablet PO ×3 (12:50→23:19)
--- NOTE | 2018-09-28 12:52 | PN.RENAL_ITS ---
Patient Problems: Active and Suspected Problems (Last Reviewed 07/30/18 @ 15:46 by Maria L Ortiz) Hypoxia (Acute) Change in mental status (Acute) Encephalopathy (Acute) Hyperkalemia (Acute) PSVT (paroxysmal supraventricular tachycardia) (Acute) Subjective: better today, saturating well on nasal cannula alone urine output is better cr better - Physical Exam General: Alert, Oriented x3, Cooperative HEENT: Atraumatic, PERRLA, EOMI, Normocephalic Neck: Supple, No JVD, Negative Carotid Bruits Lungs: Clear to auscultation, Normal air movement Cardiovascular: Regular rate, No murmurs Abdomen: Bowel Sounds Present, Soft, Non Tender Extremities: No edema, Capillary Refill Less than 3 Seconds Skin: No rashes, No breakdown Musculoskeletal: No Tenderness to Palpation of Joints or Extremities Neurological: Cranial nerves II-XII grossly intact Vital Signs Temp Pulse Resp BP Pulse Ox 98.7 F 90 24 H 135/63 H 97 09/28/18 09:00 09/28/18 10:00 09/28/18 09:00 09/28/18 09:00 09/28/18 10:00 Oxygen Flow Rate (L/min) 6 Oxygen Delivery Method Nasal Cannula Weight: 107 kg Body Mass Index (BMI) 37.5 Finger Stick Blood Glucose 74 Intake and Output for Last 24 Hours 09/26/18 09/27/18 09/28/18 23:59 23:59 23:59 Intake Total 2389.1 / 2389.1 1432.7 / 1432.7 0 / 0 Output Total 1575 / 1575 2350 / 2350 900 / 900 Balance 814.1 / 814.1 -917.3 / -917.3 -900 / -900 Microbiology Past 72 Hours 09/27/18 21:15 Gram Stain - Final Sputum, Expectorated/Coughed 09/24/18 20:25 Urine Culture - Final Urine Catheter - Catheter Culture exhibits no growth. 09/24/18 19:20 Blood Culture - Preliminary Blood Culture (Wb) - Anticubital Left No growth in 48 hours. 09/24/18 19:08 Blood Culture - Preliminary Blood Culture (Wb) - Right Hand No growth in 48 hours. 09/25/18 12:40 Legionella Antigen - Final Urine Catheter - Catheter 09/25/18 12:40 Streptococcus pneumoniae Antigen (M - Final Urine Catheter - Catheter 09/25/18 07:25 Respiratory Panel (PCR) - Final Mucosa - Nasopharyngeal Laboratory Tests Past 24 Hrs 09/28/18 09/28/18 06:10 06:10 WBC 6.0 RBC 3.10 L Hgb 9.3 L Hct 31.9 L MCV 102.9 H MCH 30.0 MCHC 29.2 L RDW 16.6 H RDW Differential 62.4 H Plt Count 97 L MPV 10.2 Immature Gran % (Auto) 0.500 Neut % (Auto) 85.6 H Lymph % (Auto) 4.6 L [place] % (Auto) 3.5 Eos % (Auto) 5.6 H Baso % (Auto) 0.2 Absolute Neuts (auto) 5.2 Absolute Lymphs (auto) 0.28 L Total Counted Not Reportable Differential Comment Sodium 153 H Potassium 4.0 Chloride 122 H Carbon Dioxide 24.0 Anion Gap 7 BUN 58 H Creatinine 1.87 H Estim Creat Clear Calc 29.45 Est GFR (MDRD) Af Amer 34 L Est GFR (MDRD) Non-Af 29 L BUN/Creatinine Ratio 31.0 H Glucose 103 Calcium 7.6 L Phosphorus 4.5 Magnesium 1.8 POC Glucose 09/28/18 09/27/18 09/27/18 05:20 23:46 18:05 POC Glucose 95 115 H 101 Medical Necessity - Tobacco Use Smoking Status: Former smoker Tobacco Use: Non-smoker Assessment/Plan All Active Problems (Last Reviewed 07/30/18 @ 15:46 by Maria L Ortiz) Bilateral cellulitis of lower leg (Acute) Acute on chronic respiratory failure with hypoxemia (Acute) Flu-like symptoms (Acute) Hypoxia (Acute) Change in mental status (Acute) Encephalopathy (Acute) Hyperkalemia (Acute) PSVT (paroxysmal supraventricular tachycardia) (Acute) BRBPR (bright red blood per rectum) (Resolved) C. difficile colitis (Resolved) Cholelithiasis (Resolved) Hyperkalemia (Resolved) 1-CKD 3. KIM. Creatinine is better 2-hyperkalemia from acute kidney injury. better 3-acute respiratory failure from pneumonia and pulmonary edema better 4-hypertension. Bp is ok 5- Hypernatremia. sodium is stable overall better. sodium is stable. still massive edema. continue lasix IV radames elam
[2018-09-28 17:11] LABS: Bedside Glucose 251 mg/dL (70-110)
[2018-09-28] MEDS: Montelukast 10 MG Tablet PO (21:00)
[2018-09-28] MEDS: 0.9% NaCl IVPB Med Flush (250 mL) 15 ML IV (21:01)
[2018-09-28 23:25] LABS: Bedside Glucose 187 mg/dL (70-110)
[2018-09-29] VITALS (26 sets, daily range): BP systolic 101–141; BP diastolic 47–101; PULSE 59–79; RESP 9–25; TEMP 36.2–37; O2SAT 87–99
[2018-09-29] MEDS: Ipratropium/Albuterol Sulfate 3 ML AMPUL.NEB INHALATION ×3 (01:43→20:02)
[2018-09-29] MEDS: dilTIAZem 30 MG Tablet PO (05:10)
[2018-09-29] MEDS: Furosemide 40 MG/4 ML Vial IV ×3 (05:10→21:10)
--- NOTE | 2018-09-29 05:56 | NURSING ---
Pt NC was not in nose. Repositioned canula. Pt took approx 3 minutes to recover to mid-high 90's.
[2018-09-29 06:35] LABS: Bedside Glucose 132 mg/dL (70-110)
[2018-09-29 06:53] LABS: Anion Gap 5 (5-15); BUN 65 mg/dL (7-18); BUN/Creat Ratio 29.7 RATIO (10-20); Calcium,Total 7.1 mg/dL (8.5-10.1); Chloride 119 mmol/L (98-107); Creatinine, Serum 2.19 mg/dL (0.55-1.02); EST Glomerular Filtration Rate 24 mL/min (>60); Est Glom Filt Rate - Afr Amer 29 mL/min (>60); Estimated Creatinine Clearance 25.15 ml/min; Glucose 145 mg/dL (74-106); Sodium Level 149 mmol/L (136-145)
--- NOTE | 2018-09-29 07:10 | PCM.PN.INT ---
Subjective: Patient did well overnight. Patient is transferred to the floor yesterday was held secondary to SVT. Nursing reports significant improvement in heart rate overnight. Patient did have a bowel movement overnight with improvement in pain score. Patient denies any dyspnea at rest. General: Alert, Cooperative, No apparent distress, - - Obese. Extremely hard of hearing. HEENT: Atraumatic, PERRLA, EOMI, Normocephalic, - - No scleral icterus or injection noted. Oral: Moist Mucosa, No Gingival or Mucosal Lesions/ Ulcerations Neck: Supple, No JVD, No Nodes, Trachea Midline Lungs: No rhonchi, No wheeze, No rales, Diminished, - - Fair effort. Symmetric expansion. Cardiovascular: Regular rate, Regular Rhythm, Normal S1, Normal S2, Murmur, No rub noted, No Gallop Abdomen: Bowel Sounds Present, Soft, Non Tender, Non-Distended, Obese Extremities: No cyanosis, Clubbing, Edema Skin: - - No significant change compared to previous Musculoskeletal: No Tenderness to Palpation of Joints or Extremities Lymphatic: No Cervical, Supraclavicular, or Inguinal Adenopathy Neurological: Cranial nerves II-XII grossly intact, Neuro grossly intact, Motor Exam 5/5 strength throughout Psych/Mental Status: Appropriate, Flat Affect Vital Signs Temp Pulse Resp BP Pulse Ox 36.6 C 64 16 117/101 H 92 09/29/18 07:00 09/29/18 07:00 09/29/18 07:00 09/29/18 07:00 09/29/18 07:00 Oxygen Flow Rate (L/min) 4 Oxygen Delivery Method Nasal Cannula Weight: 111.2 kg Body Mass Index (BMI) 37.5 Finger Stick Blood Glucose 74 Intake and Output for Last 24 Hours 09/27/18 09/28/18 09/29/18 23:59 23:59 23:59 Intake Total 1432.7 / 1432.7 1490 / 1490 240 / 240 Output Total 2350 / 2350 1650 / 1650 150 / 150 Balance -917.3 / -917.3 -160 / -160 90 / 90 Labs (Last 48 Hours) 09/27/18 09/27/18 09/27/18 08:45 09:44 11:36 WBC RBC Hgb Hct MCV MCH MCHC RDW RDW Differential Plt Count MPV Immature Gran % (Auto) Neut % (Auto) Lymph % (Auto) [place] % (Auto) Eos % (Auto) Baso % (Auto) Absolute Neuts (auto) Absolute Lymphs (auto) Total Counted Differential Comment Specimen Type ART Sample Site L Radial pH 7.26 L Bicarbonate Actual 22.6 POC Total CO2 24 Base Excess -4 L O2 Saturation 98 O2 % 40 ABG pCO2 50.8 H ABG pO2 114 H Ray Test POS Respiration Rate 12 O2 Delivery Device Bi / C PAP EPAP 10 Blood Gas Notified Whom ICU MD Blood Gas Notified Time 933 Sodium Potassium Chloride Carbon Dioxide Anion Gap BUN Creatinine Estim Creat Clear Calc Est GFR (MDRD) Af Amer Est GFR (MDRD) Non-Af BUN/Creatinine Ratio Glucose Calcium Phosphorus Magnesium POC Glucose 112 H 107 09/27/18 09/27/18 09/28/18 18:05 23:46 05:20 WBC RBC Hgb Hct MCV MCH MCHC RDW RDW Differential Plt Count MPV Immature Gran % (Auto) Neut % (Auto) Lymph % (Auto) [place] % (Auto) Eos % (Auto) Baso % (Auto) Absolute Neuts (auto) Absolute Lymphs (auto) Total Counted Differential Comment Specimen Type Sample Site pH Bicarbonate Actual POC Total CO2 Base Excess O2 Saturation O2 % ABG pCO2 ABG pO2 Ray Test Respiration Rate O2 Delivery Device EPAP Blood Gas Notified Whom Blood Gas Notified Time Sodium Potassium Chloride Carbon Dioxide Anion Gap BUN Creatinine Estim Creat Clear Calc Est GFR (MDRD) Af Amer Est GFR (MDRD) Non-Af BUN/Creatinine Ratio Glucose Calcium Phosphorus Magnesium POC Glucose 101 115 H 95 09/28/18 09/28/18 09/28/18 06:10 06:10 12:44 WBC 6.0 RBC 3.10 L Hgb 9.3 L Hct 31.9 L MCV 102.9 H MCH 30.0 MCHC 29.2 L RDW 16.6 H RDW Differential 62.4 H Plt Count 97 L MPV 10.2 Immature Gran % (Auto) 0.500 Neut % (Auto) 85.6 H Lymph % (Auto) 4.6 L [place] % (Auto) 3.5 Eos % (Auto) 5.6 H Baso % (Auto) 0.2 Absolute Neuts (auto) 5.2 Absolute Lymphs (auto) 0.28 L Total Counted Not Reportable Differential Comment Specimen Type Sample Site pH Bicarbonate Actual POC Total CO2 Base Excess O2 Saturation O2 % ABG pCO2 ABG pO2 Ray Test Respiration Rate O2 Delivery Device EPAP Blood Gas Notified Whom Blood Gas Notified Time Sodium 153 H Potassium 4.0 Chloride 122 H Carbon Dioxide 24.0 Anion Gap 7 BUN 58 H Creatinine 1.87 H Estim Creat Clear Calc 29.45 Est GFR (MDRD) Af Amer 34 L Est GFR (MDRD) Non-Af 29 L BUN/Creatinine Ratio 31.0 H Glucose 103 Calcium 7.6 L Phosphorus 4.5 Magnesium 1.8 POC Glucose 225 H 09/28/18 09/28/18 09/29/18 17:08 23:16 06:30 WBC RBC Hgb Hct MCV MCH MCHC RDW RDW Differential Plt Count MPV Immature Gran % (Auto) Neut % (Auto) Lymph % (Auto) [place] % (Auto) Eos % (Auto) Baso % (Auto) Absolute Neuts (auto) Absolute Lymphs (auto) Total Counted Differential Comment Specimen Type Sample Site pH Bicarbonate Actual POC Total CO2 Base Excess O2 Saturation O2 % ABG pCO2 ABG pO2 Ray Test Respiration Rate O2 Delivery Device EPAP Blood Gas Notified Whom Blood Gas Notified Time Sodium 149 H Potassium 4.0 Chloride 119 H Carbon Dioxide 25.0 Anion Gap 5 BUN 65 H Creatinine 2.19 H Estim Creat Clear Calc 25.15 Est GFR (MDRD) Af Amer 29 L Est GFR (MDRD) Non-Af 24 L BUN/Creatinine Ratio 29.7 H Glucose 145 H Calcium 7.1 L Phosphorus Magnesium POC Glucose 251 H 187 H 09/29/18 06:32 WBC RBC Hgb Hct MCV MCH MCHC RDW RDW Differential Plt Count MPV Immature Gran % (Auto) Neut % (Auto) Lymph % (Auto) [place] % (Auto) Eos % (Auto) Baso % (Auto) Absolute Neuts (auto) Absolute Lymphs (auto) Total Counted Differential Comment Specimen Type Sample Site pH Bicarbonate Actual POC Total CO2 Base Excess O2 Saturation O2 % ABG pCO2 ABG pO2 Ray Test Respiration Rate O2 Delivery Device EPAP Blood Gas Notified Whom Blood Gas Notified Time Sodium Potassium Chloride Carbon Dioxide Anion Gap BUN Creatinine Estim Creat Clear Calc Est GFR (MDRD) Af Amer Est GFR (MDRD) Non-Af BUN/Creatinine Ratio Glucose Calcium Phosphorus Magnesium POC Glucose 132 H Microbiology 09/27/18 21:15 Sputum, Expectorated/Coughed Gram Stain - Final 09/24/18 20:25 Urine Catheter - Catheter Urine Culture - Final Culture exhibits no growth. 09/24/18 19:20 Blood Culture (Wb) - Anticubital Left Blood Culture - Preliminary No growth in 48 hours. 09/24/18 19:08 Blood Culture (Wb) - Right Hand Blood Culture - Preliminary No growth in 48 hours. Medical Necessity - Tobacco Use Smoking Status: Former smoker Tobacco Use: Non-smoker Assessment/Plan All Active Problems (Last Reviewed 07/30/18 @ 15:46 by Maria L Ortiz) Bilateral cellulitis of lower leg (Acute) Acute on chronic respiratory failure with hypoxemia (Acute) Flu-like symptoms (Acute) Hypoxia (Acute) Change in mental status (Acute) Encephalopathy (Acute) Hyperkalemia (Acute) PSVT (paroxysmal supraventricular tachycardia) (Acute) BRBPR (bright red blood per rectum) (Resolved) C. difficile colitis (Resolved) Cholelithiasis (Resolved) Hyperkalemia (Resolved) RECOMMENDATIONS: 1. Continue BiPAP therapy with sleep. Wean as tolerated. 2. Diuresis per nephrology 3. Complete 7 days of antibiotics 4. Wean oxygen as tolerated 5. Continue appropriate ICU prophylaxis. 6. Okay to leave the intensive care unit from my perspective IMPRESSIONS: 1. Acute hypoxemic and hypercarbic respiratory failure with concerns for underlying healthcare associated pneumonia The patient does have radiographic evidence of an underlying pulmonary infectious process and fever previously. Patient likely also has an elevation of cardiac pressures complicating overall condition. Patient responded well to Lasix therapy. Oxygen requirements continue to improve. Defer to nephrology on dosing of diuretic therapy. 2. Abnormal CT head Initial CT head revealed white matter ischemic changes of unclear chronicity. Repeat CT scan showed extensive sinus involvement. No bleeds have been noted. 3. Encephalopathy Improved. Appears to be at her baseline at this time. Likely metabolic in nature. Complicated by underlying hearing loss. 4. Troponin elevation/underlying heart failure with preserved ejection fraction/aortic valve stenosis/coronary artery disease Likely secondary to demand ischemia in the setting of #1. Cautious use of supplemental IV fluids, given valvular stenosis, pulmonary hypertension and diastolic dysfunction. Diuresis per nephrology. 5. Acute on chronic kidney disease/hyperkalemia Nephrology opinion appreciated. No current indication for renal replacement therapy. Continue medical management of the patient's elevated potassium level. Patient appears to be responding to diuresis appropriately. Hypernatremia and hyperchloremia continue to improve. 6. Obesity/hyperlipidemia/hypertension/diabetes/lower extremity cellulitis Complicates care, management, recovery and prognosis. The patient's diet can be advanced if she is able to be maintained off of BiPAP therapy today. Code Visit Inpatient E&M: 46824 [facility] Hosp L3
--- NOTE | 2018-09-29 07:53 | PN_ITS ---
Patient Problems: Active and Suspected Problems (Last Reviewed 07/30/18 @ 15:46 by Maria L Ortiz) Hypoxia (Acute) Change in mental status (Acute) Encephalopathy (Acute) Hyperkalemia (Acute) PSVT (paroxysmal supraventricular tachycardia) (Acute) Subjective: Patient was seen and examined. Heart rate is better controlled. In normal sinus rhythm. No other acute events overnight. Diuresing well. Denies any new complaints. No chest pain or dizziness or palpitation. Objective: Physical exam: General: Alert, Cooperative, No apparent distress, hard of hearing, confusion has improved HEENT: Atraumatic, PERRLA, EOMI, Normocephalic Oral: Moist Mucosa Neck: Supple Lungs: Diminished Cardiovascular: Regular rate, Regular Rhythm, Normal S1, Normal S2, No murmurs Abdomen: Bowel Sounds Present, Soft, Non Tender, Non-Distended, No Hepato- splenomegaly Extremities: Bilateral leg edema as well as bilateral hands, +3-4 Skin: - - Bilateral lower extremities edema +3 with erythema and areas of ulceration, worse on the right Musculoskeletal: No Tenderness to Palpation of Joints or Extremities Lymphatic: No Cervical, Supraclavicular, or Inguinal Adenopathy Neurological: Cranial nerves II-XII grossly intact Psych/Mental Status: Normal Affect, Appropriate Vitals/I&O's: Vital Signs Temp Pulse Resp BP Pulse Ox 97.9 F 64 16 117/101 H 92 09/29/18 07:00 09/29/18 07:00 09/29/18 07:00 09/29/18 07:00 09/29/18 07:00 Oxygen Flow Rate (L/min) 4 Oxygen Delivery Method Nasal Cannula Weight: 111.2 kg Body Mass Index (BMI) 37.5 Finger Stick Blood Glucose 74 Intake and Output for Last 24 Hours 09/27/18 09/28/18 09/29/18 23:59 23:59 23:59 Intake Total 1432.7 / 1432.7 1490 / 1490 240 / 240 Output Total 2350 / 2350 1650 / 1650 150 / 150 Balance -917.3 / -917.3 -160 / -160 90 / 90 Microbiology Past 72 Hours 09/27/18 21:15 Sputum, Expectorated/Coughed Gram Stain - Final 09/24/18 20:25 Urine Catheter - Catheter Urine Culture - Final Culture exhibits no growth. 03/29/19 19:20 Blood Culture (Wb) - Anticubital Left Blood Culture - Preliminary No growth in 48 hours. 09/24/18 19:08 Blood Culture (Wb) - Right Hand Blood Culture - Preliminary No growth in 48 hours. Laboratory Results 09/28/18 12:44: POC Glucose 225 H 09/28/18 17:08: POC Glucose 251 H 09/28/18 23:16: POC Glucose 187 H 09/29/18 06:30: Sodium 149 H, Potassium 4.0, Chloride 119 H, Carbon Dioxide 25.0, Anion Gap 5, BUN 65 H, Creatinine 2.19 H, Estim Creat Clear Calc 25.15, Est GFR (MDRD) Af Amer 29 L, Est GFR (MDRD) Non-Af 24 L, BUN/Creatinine Ratio 29.7 H, Glucose 145 H, Calcium 7.1 L 09/29/18 06:32: POC Glucose 132 H Current Medications Acetaminophen (Tylenol) 650 mg RECTAL Q6H PRN PRN PRN Reason: pain/fever Last Admin: 09/25/18 21:45 Dose: 650 mg Acetaminophen (Tylenol) 650 mg PO Q6H PRN PRN PRN Reason: Pain/fever Last Admin: 09/26/18 23:40 Dose: 650 mg Albuterol/Ipratropium (Duoneb) 3 ml INHALATION Q6H.RT [facility] Last Admin: 09/29/18 07:04 Dose: 3 ml Ascorbic Acid (Vitamin C) 500 mg PO DAILY@0800 [facility] Last Admin: 09/28/18 08:17 Dose: 500 mg Chlorhexidine Gluconate () 1 each TOPICAL DAILY [facility] Last Admin: 09/28/18 01:43 Dose: 1 each Clopidogrel Bisulfate (Plavix) 75 mg PO DAILY [facility] Last Admin: 09/28/18 08:17 Dose: 75 mg Diltiazem HCl (Cardizem) 30 mg PO Q6 [facility] Last Admin: 09/29/18 05:10 Dose: 30 mg Enoxaparin Sodium (Lovenox) 30 mg SC DAILY@1000 [facility] Last Admin: 09/28/18 08:17 Dose: 30 mg Ferrous Gluconate (Ferrous Gluconate) 324 mg PO BIDCM [facility] Last Admin: 09/28/18 17:46 Dose: 324 mg Fluticasone Propionate (Flonase Nasal [place]) 2 spray NASAL DAILY [facility] Last Admin: 09/28/18 10:54 Dose: 2 spray Furosemide (Lasix) 40 mg IV TID [facility] Last Admin: 09/29/18 05:10 Dose: 40 mg Sodium Chloride () 250 mls @ 15 mls/hr IV .[id number] PRN PRN Reason: SALINE FLUSH Last Admin: 09/28/18 21:01 Dose: 15 mls/hr Vancomycin IV Pharmacy to Dose (1 ea/ Sodium Chloride) 500 mls @ 250 mls/hr IV X1 PRN; Protocol PRN Reason: Rx to Dose Vancomycin HCl 1,500 mg/ (Sodium Chloride) 530 mls @ 250 mls/hr IV Q24H [facility] Last Admin: 09/28/18 21:01 Dose: 250 mls/hr Cefepime HCl 1 gm/ Sodium (Chloride) 50 mls @ 100 mls/hr IV Q12 [facility] Last Admin: 09/28/18 21:01 Dose: 100 mls/hr Insulin Human Lispro (Humalog Kwikpen (Bkc)) 0 unit SC ACHS [facility]; Protocol Last Admin: 09/29/18 07:47 Dose: Not Given Isosorbide Mononitrate (Imdur) 60 mg PO DAILY [facility] Last Admin: 09/28/18 08:23 Dose: 60 mg Lactobacillus Acidophilus (Acidophilus) 1 tablet PO BID [facility] Last Admin: 09/28/18 21:00 Dose: 1 tablet Magnesium Hydroxide (Milk Of Magnesia) 30 ml PO DAILY PRN PRN PRN Reason: Constipation Metoprolol Tartrate (Lopressor (Beta Richard)) 100 mg PO BID [facility] Last Admin: 09/28/18 21:00 Dose: 100 mg Montelukast Sodium (Singulair) 10 mg PO QHS [facility] Last Admin: 09/28/18 21:00 Dose: 10 mg Nitroglycerin (Nitrostat) 0.4 mg SUBLINGUAL Q5M PRN PRN Reason: Chest Pain [facility] Stop: 09/29/18 08:01 Last Admin: 09/28/18 08:23 Dose: 5 mg Sodium Chloride () 5 - 15 ml IV UD PRN PRN Reason: SALINE FLUSH Last Admin: 09/28/18 12:53 Dose: 10 ml Medical Necessity - Tobacco Use Smoking Status: Former smoker Tobacco Use: Non-smoker Assessment/Plan All Active Problems (Last Reviewed 07/30/18 @ 15:46 by Maria L Ortiz) Bilateral cellulitis of lower leg (Acute) Acute on chronic respiratory failure with hypoxemia (Acute) Flu-like symptoms (Acute) Hypoxia (Acute) Change in mental status (Acute) Encephalopathy (Acute) Hyperkalemia (Acute) PSVT (paroxysmal supraventricular tachycardia) (Acute) BRBPR (bright red blood per rectum) (Resolved) C. difficile colitis (Resolved) Cholelithiasis (Resolved) Hyperkalemia (Resolved) 67-year-old female was admitted from SNF with hypoxia and mental status and has been admitted to the ICU managed at acute hypoxic and hypercapnic respiratory failure. 1. Tachycardia, paroxysmal SVTs, in normal sinus rhythm, continue on metoprolol and Cardizem 2. Acute hypoxic/hypercarbic combined respiratory failure secondary to acute on chronic diastolic CHF/HCAP, improving, currently on 4 L of oxygen, will continue on oxygen as well asBiPAP QHS and prn 3. Acute on chronic diastolic CHF/pulmonary hypertension/valvular heart disease, improving Diuresing well with Lasix 40 mg 3 times daily; discussed with sand control worker, continue same, possible change in dose of Lasix from tomorrow depending on urine output as well as renal function. 4. Acute metabolic/infectious encephalopathy, improved, patient still intermittently confused 5. Healthcare acquired pneumonia, likely secondary to suspected gram-negative organism and possible MRSA On vancomycin and cefepime (day 6); aim for 7 days of total antibiotics- stop antibiotics after tomorrow 6. KIM on CKD stage III, remains at the baseline, slightly elevated from previous nephrology following, will monitor creatinine whilst on diuretics 7. Hypernatremia, secondary to dehydration, mildly improved, asymptomatic, will continue to monitor, repeat blood work in a.m. 8. CAD s/p 3-vessel CABG/PAD, on plavix, Imdur, nitro prn 9. Hyperlipidemia, off statins for now 10. Hypertension, controlled on metoprolol, continue to monitor 11. DVT PPx- Lovenox SC 12. Disposition: Transfer to PCU, possible DC in 24-48 hours Code Visit Inpatient E&M: 20219 [facility] Hosp L2
[2018-09-29] MEDS: Ferrous Gluconate 324 MG Tablet PO ×2 (08:19→17:05)
[2018-09-29] MEDS: Ascorbic Acid 500 MG Tablet PO (08:19)
[2018-09-29] MEDS: predniSONE 5 MG Tablet PO (08:19)
[2018-09-29] MEDS: Metoprolol Tartrate 100 MG Tablet PO ×2 (09:12→21:10)
[2018-09-29] MEDS: Fluticasone 0.05% 1 SPRAY NASAL.SRY 2 SPRAY NASAL (09:12)
[2018-09-29] MEDS: Isosorbide Mononitrate 60 MG Tablet PO (09:12)
[2018-09-29] MEDS: CHLORHEXIDINE GLUC 2% CLOTH 1 EACH TOWELETTE TOPICAL (09:12)
[2018-09-29] MEDS: Clopidogrel Bisulfate 75 MG Tablet PO (09:13)
[2018-09-29] MEDS: Enoxaparin 30 MG/0.3 ML Syringe SC (09:13)
[2018-09-29] MEDS: dilTIAZem CD 120 MG Capsule PO (11:56)
[2018-09-29] MEDS: Insulin Lispro 100 UNIT/ML INSULN.PEN SC ×3 (12:05→21:39)
[2018-09-29 12:20] LABS: Bedside Glucose 186 mg/dL (70-110)
--- NOTE | 2018-09-29 13:09 | CASEMGMT ---
Pt was moved to PCU. TRI faxed updates to Tania at [facility] and left her a message letting her know pt was moved to U. BENJIE Frank, SPEECH PROFESSOR
--- NOTE | 2018-09-29 13:11 | CASEMGMT ---
TRI left a message for [facility] requesting POA forms be faxed over as we do not have them on file here at the hospital. BENJIE Frank, PROJECT MANAGEMENT PROFESSIONAL
[2018-09-29 16:44] LABS: Magnesium 2.2 mg/dL (1.6-2.6)
[2018-09-29 18:26] LABS: Bedside Glucose 225 mg/dL (70-110)
--- NOTE | 2018-09-29 18:37 | PCM.PN.REN ---
Patient Problems: Active and Suspected Problems (Last Reviewed 07/30/18 @ 15:46 by Maria L Ortiz) Hypoxia (Acute) Change in mental status (Acute) Encephalopathy (Acute) Hyperkalemia (Acute) PSVT (paroxysmal supraventricular tachycardia) (Acute) Subjective: Pt is doing Ok. On NC at 4l/m no nausea No vomiting. No CP - Physical Exam General: Alert, Cooperative HEENT: Atraumatic Oral: Moist Mucosa Neck: Supple, No JVD Lungs: Clear to auscultation, No rhonchi, No wheeze Cardiovascular: Regular rate, Regular Rhythm, Normal S1 Abdomen: Bowel Sounds Present, Soft, Non Tender Extremities: Edema - +3 edema of LE Skin: Ulcer/ Wound Musculoskeletal: No Tenderness to Palpation of Joints or Extremities Lymphatic: No Cervical, Supraclavicular, or Inguinal Adenopathy Neurological: Cranial nerves II-XII grossly intact, Neuro grossly intact Vital Signs Temp Pulse Resp BP Pulse Ox 97.8 F 71 18 117/50 L 92 09/29/18 14:47 09/29/18 14:59 09/29/18 14:47 09/29/18 14:47 09/29/18 14:47 Oxygen Flow Rate (L/min) 4 Oxygen Delivery Method Nasal Cannula Weight: 111.2 kg Body Mass Index (BMI) 37.5 Finger Stick Blood Glucose 74 Intake and Output for Last 24 Hours 09/27/18 09/28/18 09/29/18 23:59 23:59 23:59 Intake Total 1432.7 / 1432.7 1490 / 1490 966 / 966 Output Total 2350 / 2350 1650 / 1650 400 / 400 Balance -917.3 / -917.3 -160 / -160 566 / 566 Microbiology Past 72 Hours 09/27/18 21:15 Gram Stain - Final Sputum, Expectorated/Coughed Respiratory Culture - Final Coag Negative Staph Coag Negative Staph#2 09/24/18 20:25 Urine Culture - Final Urine Catheter - Catheter Culture exhibits no growth. 09/24/18 19:20 Blood Culture - Preliminary Blood Culture (Wb) - Anticubital Left No growth in 48 hours. 09/24/18 19:08 Blood Culture - Preliminary Blood Culture (Wb) - Right Hand No growth in 48 hours. Laboratory Tests Past 24 Hrs 09/29/18 09/29/18 06:30 06:30 Sodium 149 H Potassium 4.0 Chloride 119 H Carbon Dioxide 25.0 Anion Gap 5 BUN 65 H Creatinine 2.19 H Estim Creat Clear Calc 25.15 Est GFR (MDRD) Af Amer 29 L Est GFR (MDRD) Non-Af 24 L BUN/Creatinine Ratio 29.7 H Glucose 145 H Calcium 7.1 L Magnesium 2.2 POC Glucose 09/29/18 09/29/18 09/29/18 17:04 11:54 06:32 POC Glucose 225 H 186 H 132 H 09/28/18 23:16 POC Glucose 187 H Medical Necessity - Tobacco Use Smoking Status: Former smoker Tobacco Use: Non-smoker Assessment/Plan All Active Problems (Last Reviewed 07/30/18 @ 15:46 by Maria L Ortiz) Bilateral cellulitis of lower leg (Acute) Acute on chronic respiratory failure with hypoxemia (Acute) Flu-like symptoms (Acute) Hypoxia (Acute) Change in mental status (Acute) Encephalopathy (Acute) Hyperkalemia (Acute) PSVT (paroxysmal supraventricular tachycardia) (Acute) BRBPR (bright red blood per rectum) (Resolved) C. difficile colitis (Resolved) Cholelithiasis (Resolved) Hyperkalemia (Resolved) 1-acute kidney injury most probably prerenal from ,PAH,and being on diuretic Cr is at baseline. Continue the same of dose of lasix 40 mg TID Continue to monitor renal function panel. Avoid CARLOS A inhibitor or ARB. No indication for hemodialysis. Keep MAP >54 2-hyperkalemia from acute kidney injury. Resolved Patient was treated medically with D50 and insulin along with calcium gluconate. 3-Acute respiratory failure from pneumonia and pulmonary hypertension. Pneumonia treatment as per the hospitalist service. Continue O2 support to maintain oxygen saturation more than 92%. 4-hypertension. Please avoid vasodilator with severe aortic stenosis. Avoid CARLOS A inhibitor or ARB Blood pressure is well controlled. 5- Hypernatremia: Na level improved from 153->149. Will continue to monitor with [facility] Renal team to continue to follow. Please call with any question at [phone] Lucina Moreno MD
[2018-09-29] MEDS: Atorvastatin Calcium 10 MG Tablet PO (21:10)
[2018-09-29] MEDS: Montelukast 10 MG Tablet PO (21:11)
[2018-09-29] MEDS: 0.9% NaCl Peripheral Flush Adult/Peds IV (21:11)
[2018-09-29 22:41] LABS: Bedside Glucose 255 mg/dL (70-110)
[2018-09-29] MEDS: Menthol/Lanolin/Calamine/Znox 113 GM Tube 1 APPLIC TOPICAL (22:43)
--- NOTE | 2018-09-29 22:44 | NURSING ---
This RN and CORNER CUTTER turned patient to get her off of her right side. Patient pushed RN's arm away while putting pillow under right side of patient. Patient then had us move pillow out and she repositioned herself right back to same position she was in. Patient stated she was fine and comfortable
[2018-09-30] VITALS (16 sets, daily range): BP systolic 119–142; BP diastolic 55–76; PULSE 59–105; RESP 18–20; TEMP 36.3–36.6; O2SAT 93–95
[2018-09-30] MEDS: Furosemide 40 MG/4 ML Vial IV (05:48)
[2018-09-30] MEDS: 0.9% NaCl Peripheral Flush Adult/Peds IV ×3 (05:48→22:23)
[2018-09-30] MEDS: Menthol/Lanolin/Calamine/Znox 113 GM Tube 1 APPLIC TOPICAL ×2 (05:49→14:37)
--- NOTE | 2018-09-30 06:49 | NURSING ---
This RN and RAIL WASHER tried to turn patient numerous times through the night, she refused to be turned. This morning she refused to allow the RAIL WASHER to clean her bottom. This RN and RAIL WASHER went back to clean patients bottom as she had a bowel movement in her attends. Patient became very agitated and started yelling. She jumped up and sat in bed and got really close to RAIL WASHER.
--- NOTE | 2018-09-30 06:50 | PCM.PN.CARD ---
Subjectve: Patient seen and evaluated Objective: Vital Signs Temp Pulse Resp BP Pulse Ox 97.7 F L 68 18 136/66 H 94 09/30/18 05:46 09/30/18 05:46 09/30/18 05:46 09/30/18 05:46 09/30/18 05:46 Oxygen Flow Rate (L/min) 5 Oxygen Delivery Method Nasal Cannula Weight: 250 lb 7.122 oz Body Mass Index (BMI) 37.5 Finger Stick Blood Glucose 74 Intake and Output for Last 24 Hours 09/28/18 09/29/18 09/30/18 23:59 23:59 23:59 Intake Total 1490 / 1490 1380 / 1380 Output Total 1650 / 1650 650 / 650 Balance -160 / -160 730 / 730 General: Awake, Alert, Oriented x 3 HEENT: PERRL, EOMI, Sclera Non Icteric Neck: Supple, Good ROM, No Lymph Node Enlargement Lungs: Clear to auscultation Cardiovascular: Regular Rhythm, Normal S1, Normal S2, No Murmurs, No Rubs, No Gallops Vascular: No Carotid Bruits, Normal Femoral Pulses, Normal Radial Pulses, Normal Dorsalis Pedal Pulse, Normal Posterior Tibial Pulses Abdomen: Bowel Sounds Present, Soft, Non Tender, No HSM, No Organomegaly Extremities: No Cyanosis, No Clubbing, No edema Neurological: No Focal Motor or Sensory Deficit Psych/Mental Status: Appropriate 09/29/18 06:30: Sodium 149 H, Potassium 4.0, Chloride 119 H, Carbon Dioxide 25.0, Anion Gap 5, BUN 65 H, Creatinine 2.19 H, Est GFR (MDRD) Af Amer 29 L, Est GFR (MDRD) Non-Af 24 L, BUN/Creatinine Ratio 29.7 H, Glucose 145 H, Calcium 7.1 L 09/29/18 06:30: Magnesium 2.2 Rhythm: EKG: ECHO: Stress Test: Cardiac Cath: PCI: CT Surgery: Holter monitor: EPS: PPM: CXR: Chest CT Scan: Medical Necessity - Tobacco Use Smoking Status: Former smoker Tobacco Use: Non-smoker Assessment/Plan 1. PSVT The patient has had episodes of a PSVT. It appears potentially compatible with an ectopic atrial tachycardia. She will continue on her beta-apryl and calcium channel apryl combination at this time. It does not appear that she has had any recurrences. 2. CAD status post PCI and CABG She does have a history of CAD and CABG. It appears she is also had a history of PCI. At the present time she is without any acute symptoms. Her troponin I levels have been indeterminate. These may be a type II secondary event brought out by her COPD exacerbation. Her ECG is demonstrated no new acute changes. Her transthoracic echocardiogram just demonstrates preserved left ventricular size, wall motion, and systolic function. At the present time she will continue medical management. It is not felt she is required further invasive cardiovascular evaluation or care at this time. This could change depending upon her clinical course. 3. Valvular heart disease She does have valvular heart disease. She has evidence of both mitral valve stenosis and aortic valve stenosis. At the present time she is continuing medical management. 4. Hyperlipidemia The patient will continue risk factor evaluation and care. 5. Hypertension The patient will continue medical therapy with adjustment as deemed appropriate. This note was generated with [employer] dictation software. It may contain incorrect words, spelling, and punctuation that were not noted in checking the note before signing.
[2018-09-30 07:01] LABS: Bedside Glucose 135 mg/dL (70-110)
[2018-09-30 07:02] LABS: Anion Gap 7 (5-15); BUN 68 mg/dL (7-18); Calcium,Total 7.6 mg/dL (8.5-10.1); Chloride 117 mmol/L (98-107); Creatinine, Serum 2.43 mg/dL (0.55-1.02); EST Glomerular Filtration Rate 21 mL/min (>60); Est Glom Filt Rate - Afr Amer 26 mL/min (>60); Estimated Creatinine Clearance 22.66 ml/min; Glucose 139 mg/dL (74-106); Potassium 4.5 mmol/L (3.5-5.1); Sodium Level 147 mmol/L (136-145)
[2018-09-30] MEDS: Ipratropium/Albuterol Sulfate 3 ML AMPUL.NEB INHALATION ×3 (07:20→19:17)
[2018-09-30 07:46] LABS: AST(SGOT) 20 U/L (15-37); Alanine Aminotransfer ALT/SGPT 21 U/L (13-56); Albumin, Serum 2.1 g/dL (3.2-5.0); Alkaline Phosphatase 95 U/L (45-117); Globulin 3.5 g/dL (2.2-4.2); Protein, Total 5.6 g/dL (6.4-8.2)
--- NOTE | 2018-09-30 08:51 | PCM.PN.PUL ---
Patient Problems: Active and Suspected Problems (Last Reviewed 07/30/18 @ 15:46 by Maria L Ortiz) Hypoxia (Acute) Change in mental status (Acute) Encephalopathy (Acute) Hyperkalemia (Acute) PSVT (paroxysmal supraventricular tachycardia) (Acute) Subjective: Patient did okay overnight. Patient denies any pain. Patient has been weaned to 5 L nasal cannula and tolerating well. Patient is not very ambulatory at baseline. - Physical Exam General: Alert, Cooperative, No apparent distress, - - Very hard of hearing. Morbidly obese. HEENT: Atraumatic, PERRLA, EOMI, Normocephalic, - - No scleral icterus or injection noted. Supplemental oxygen in place. Oral: Moist Mucosa, No Gingival or Mucosal Lesions/ Ulcerations, - - Crowded posterior pharynx Neck: Supple, No Nodes, Trachea Midline, JVD, Right Lungs: No rhonchi, No wheeze, No rales, Diminished, - - Symmetric expansion. No dullness to percussion. Cardiovascular: Regular rate, Regular Rhythm, Normal S1, Normal S2, No murmurs, No rub noted, No Gallop Abdomen: Bowel Sounds Present, Soft, Non Tender, Non-Distended, Obese Extremities: No cyanosis, Edema, - - Lower extremities wrapped with [place] bandage Skin: - - No significant change Musculoskeletal: No Tenderness to Palpation of Joints or Extremities Lymphatic: No Cervical, Supraclavicular, or Inguinal Adenopathy Neurological: Cranial nerves II-XII grossly intact - Except for hearing, Neuro grossly intact Psych/Mental Status: Flat Affect Vital Signs Temp Pulse Resp BP Pulse Ox 36.5 C L 69 20 H 136/66 H 94 09/30/18 05:46 09/30/18 07:16 09/30/18 07:16 09/30/18 05:46 09/30/18 05:46 Oxygen Flow Rate (L/min) 5 Oxygen Delivery Method Nasal Cannula Weight: 113.6 kg Body Mass Index (BMI) 37.5 Finger Stick Blood Glucose 74 Intake and Output for Last 24 Hours 09/28/18 09/29/18 09/30/18 23:59 23:59 23:59 Intake Total 1490 / 1490 1380 / 1380 60 / 60 Output Total 1650 / 1650 650 / 650 Balance -160 / -160 730 / 730 60 / 60 Microbiology Past 72 Hours 09/24/18 19:20 Blood Culture - Final Blood Culture (Wb) - Anticubital Left No growth in 5 days. 09/24/18 19:08 Blood Culture - Final Blood Culture (Wb) - Right Hand No growth in 5 days. 09/27/18 21:15 Gram Stain - Final Sputum, Expectorated/Coughed Respiratory Culture - Final Coag Negative Staph Coag Negative Staph#2 09/24/18 20:25 Urine Culture - Final Urine Catheter - Catheter Culture exhibits no growth. Laboratory Tests Past 24 Hrs 09/29/18 09/30/18 09/30/18 06:30 06:20 06:20 Sodium 147 H Potassium 4.5 Chloride 117 H Carbon Dioxide 23.0 Anion Gap 7 BUN 68 H Creatinine 2.43 H Estim Creat Clear Calc 22.66 Est GFR (MDRD) Af Amer 26 L Est GFR (MDRD) Non-Af 21 L BUN/Creatinine Ratio 28.0 H Glucose 139 H Calcium 7.6 L Magnesium 2.2 Total Bilirubin 0.50 Direct Bilirubin 0.20 AST 20 ALT 21 Alkaline Phosphatase 95 Total Protein 5.6 L Albumin 2.1 L Globulin 3.5 POC Glucose 09/30/18 09/29/18 09/29/18 06:56 21:17 17:04 POC Glucose 135 H 255 H 225 H 09/29/18 11:54 POC Glucose 186 H Medical Necessity - Tobacco Use Smoking Status: Former smoker Tobacco Use: Non-smoker Assessment/Plan All Active Problems (Last Reviewed 07/30/18 @ 15:46 by Maria L Ortiz) Bilateral cellulitis of lower leg (Acute) Acute on chronic respiratory failure with hypoxemia (Acute) Flu-like symptoms (Acute) Hypoxia (Acute) Change in mental status (Acute) Encephalopathy (Acute) Hyperkalemia (Acute) PSVT (paroxysmal supraventricular tachycardia) (Acute) BRBPR (bright red blood per rectum) (Resolved) C. difficile colitis (Resolved) Cholelithiasis (Resolved) Hyperkalemia (Resolved) RECOMMENDATIONS: 1. Continue BiPAP therapy with sleep. Wean as tolerated. 2. Diuresis per nephrology. Consider increase Lasix dosing 3. Complete 7 days of antibiotics 4. Wean oxygen as tolerated 5. Wound nurse for lower extremity IMPRESSIONS: 1. Acute hypoxemic and hypercarbic respiratory failure with concerns for underlying healthcare associated pneumonia The patient does have radiographic evidence of an underlying pulmonary infectious process and fever previously. Patient likely also has an elevation of cardiac pressures complicating overall condition. Patient responding well to Lasix therapy, but actually positive fluid balance yesterday. Oxygen requirements are close to baseline. Defer to nephrology on dosing of diuretic therapy. 2. Abnormal CT head Initial CT head revealed white matter ischemic changes of unclear chronicity. Repeat CT scan showed extensive sinus involvement. No bleeds have been noted. 3. Encephalopathy Improved. Appears to be at her baseline at this time. Likely metabolic in nature. Complicated by underlying hearing loss. 4. Troponin elevation/underlying heart failure with preserved ejection fraction/aortic valve stenosis/coronary artery disease Likely secondary to demand ischemia in the setting of #1. Cautious use of supplemental IV fluids, given valvular stenosis, pulmonary hypertension and diastolic dysfunction. Diuresis per nephrology. 5. Acute on chronic kidney disease/hyperkalemia Nephrology opinion appreciated. No current indication for renal replacement therapy. Continue medical management of the patient's elevated potassium level. Patient appears to be responding to diuresis appropriately. Hypernatremia and hyperchloremia continue to improve. 6. Obesity/hyperlipidemia/hypertension/diabetes/lower extremity cellulitis Complicates care, management, recovery and prognosis. Patient back on a full diet. Code Visit Inpatient E&M: 29358 Subs Hosp L2
[2018-09-30] MEDS: Fluticasone 0.05% 1 SPRAY NASAL.SRY 2 SPRAY NASAL (09:18)
[2018-09-30] MEDS: Ascorbic Acid 500 MG Tablet PO (09:19)
[2018-09-30] MEDS: Clopidogrel Bisulfate 75 MG Tablet PO (09:19)
[2018-09-30] MEDS: Ferrous Gluconate 324 MG Tablet PO ×2 (09:19→17:51)
[2018-09-30] MEDS: Enoxaparin 30 MG/0.3 ML Syringe SC (09:21)
[2018-09-30] MEDS: Isosorbide Mononitrate 60 MG Tablet PO (09:26)
[2018-09-30] MEDS: dilTIAZem CD 120 MG Capsule PO (09:26)
[2018-09-30] MEDS: Metoprolol Tartrate 100 MG Tablet PO (09:26)
[2018-09-30] MEDS: Insulin Lispro 100 UNIT/ML INSULN.PEN SC ×2 (11:30→17:51)
[2018-09-30 11:41] LABS: Bedside Glucose 184 mg/dL (70-110)
--- NOTE | 2018-09-30 11:49 | CASEMGMT ---
TRI spoke with Alejandra at [facility] and let her know that patient will possibly be discharged tomorrow. She thanked TRI for the update. Milady KELLY MSW
--- NOTE | 2018-09-30 14:22 | PCM.PN.HOSP ---
Patient Problems: Active and Suspected Problems (Last Reviewed 07/30/18 @ 15:46 by Maria L Ortiz) Hypoxia (Acute) Change in mental status (Acute) Encephalopathy (Acute) Hyperkalemia (Acute) PSVT (paroxysmal supraventricular tachycardia) (Acute) Subjective: Patient was seen and examined. No new complains. No acute events. Objective: Physical exam: General: Alert, Cooperative, No apparent distress, hard of hearing, confusion has improved HEENT: Atraumatic, PERRLA, EOMI, Normocephalic Oral: Moist Mucosa Neck: Supple Lungs: Diminished Cardiovascular: Regular rate, Regular Rhythm, Normal S1, Normal S2, No murmurs Abdomen: Bowel Sounds Present, Soft, Non Tender, Non-Distended, No Hepato-splenomegaly Extremities: Bilateral leg edema as well as bilateral hands, +3-4 Skin: - - Bilateral lower extremities edema +3 with erythema and areas of ulceration, worse on the right Musculoskeletal: No Tenderness to Palpation of Joints or Extremities Lymphatic: No Cervical, Supraclavicular, or Inguinal Adenopathy Neurological: Cranial nerves II-XII grossly intact Psych/Mental Status: Normal Affect, Appropriate Vitals/I&O's: Vital Signs Temp Pulse Resp BP Pulse Ox 97.9 F 68 20 H 119/55 L 93 09/30/18 09:22 09/30/18 13:25 09/30/18 13:25 09/30/18 09:26 09/30/18 09:22 Oxygen Flow Rate (L/min) 5 Oxygen Delivery Method Nasal Cannula Weight: 113.6 kg Body Mass Index (BMI) 37.5 Finger Stick Blood Glucose 74 Intake and Output for Last 24 Hours 09/28/18 09/29/18 09/30/18 23:59 23:59 23:59 Intake Total 1490 / 1490 1380 / 1380 535 / 535 Output Total 1650 / 1650 650 / 650 400 / 400 Balance -160 / -160 730 / 730 135 / 135 Microbiology Past 72 Hours 09/24/18 19:20 Blood Culture (Wb) - Anticubital Left Blood Culture - Final No growth in 5 days. 09/24/18 19:08 Blood Culture (Wb) - Right Hand Blood Culture - Final No growth in 5 days. 09/27/18 21:15 Sputum, Expectorated/Coughed Gram Stain - Final 09/27/18 21:15 Sputum, Expectorated/Coughed Respiratory Culture - Final Coag Negative Staph Coag Negative Staph#2 Laboratory Results 09/29/18 06:30: Magnesium 2.2 09/29/18 17:04: POC Glucose 225 H 09/29/18 21:17: POC Glucose 255 H 09/30/18 06:20: Sodium 147 H, Potassium 4.5, Chloride 117 H, Carbon Dioxide 23.0, Anion Gap 7, BUN 68 H, Creatinine 2.43 H, Estim Creat Clear Calc 22.66, Est GFR (MDRD) Af Amer 26 L, Est GFR (MDRD) Non-Af 21 L, BUN/Creatinine Ratio 28.0 H, Glucose 139 H, Calcium 7.6 L 09/30/18 06:20: Total Bilirubin 0.50, Direct Bilirubin 0.20, AST 20, ALT 21, Alkaline Phosphatase 95, Total Protein 5.6 L, Albumin 2.1 L, Globulin 3.5 09/30/18 06:56: POC Glucose 135 H 09/30/18 11:25: POC Glucose 184 H Current Medications Acetaminophen (Tylenol) 650 mg RECTAL Q6H PRN PRN PRN Reason: pain/fever Last Admin: 09/25/18 21:45 Dose: 650 mg Acetaminophen (Tylenol) 650 mg PO Q6H PRN PRN PRN Reason: Pain/fever Last Admin: 09/26/18 23:40 Dose: 650 mg Albuterol/Ipratropium (Duoneb) 3 ml INHALATION Q6HWA.RT [facility] Last Admin: 09/30/18 13:21 Dose: 3 ml Ascorbic Acid (Vitamin C) 500 mg PO DAILY@0800 [facility] Last Admin: 09/30/18 09:19 Dose: 500 mg Calamine/Phenol (Calmoseptine Ointment) 1 applic TOPICAL TID [facility]; Protocol Last Admin: 09/30/18 05:49 Dose: 1 applicatio Chlorhexidine Gluconate () 1 each TOPICAL DAILY [facility] Last Admin: 09/30/18 09:18 Dose: Not Given Clopidogrel Bisulfate (Plavix) 75 mg PO DAILY [facility] Last Admin: 09/30/18 09:19 Dose: 75 mg Diltiazem HCl (Cardizem Cd) 120 mg PO DAILY [facility] Last Admin: 09/30/18 09:26 Dose: 120 mg Enoxaparin Sodium (Lovenox) 30 mg SC DAILY@1000 [facility] Last Admin: 09/30/18 09:21 Dose: 30 mg Ferrous Gluconate (Ferrous Gluconate) [facility] Last Admin: 09/30/18 09:19 Dose: 324 mg Fluticasone Propionate (Flonase Nasal [place]) 2 spray NASAL DAILY [facility] Last Admin: 09/30/18 09:18 Dose: 2 spray Sodium Chloride () 250 mls @ 15 mls/hr IV .[id number] PRN PRN Reason: SALINE FLUSH Last Admin: 09/28/18 21:01 Dose: 15 mls/hr Vancomycin HCl 1,500 mg/ (Sodium Chloride) 530 mls @ 250 mls/hr IV Q24H [facility] Stop: 10/01/18 00:08 Last Admin: 09/29/18 22:44 Dose: 250 mls/hr Cefepime HCl 1 gm/ Sodium (Chloride) 50 mls @ 100 mls/hr IV Q12 [facility] Stop: 09/30/18 22:29 Last Admin: 09/30/18 09:34 Dose: 100 mls/hr Insulin Human Lispro (Humalog Kwikpen (Bkc)) 0 unit SC [facility]; Protocol Last Admin: 09/30/18 11:30 Dose: 1 u Isosorbide Mononitrate (Imdur) 60 mg PO DAILY [facility] Last Admin: 09/30/18 09:26 Dose: 60 mg Lactobacillus Acidophilus (Acidophilus) 1 tablet PO BID [facility] Last Admin: 09/30/18 09:19 Dose: 1 tablet Magnesium Hydroxide (Milk Of Magnesia) 30 ml PO DAILY PRN PRN PRN Reason: Constipation Metoprolol Tartrate (Lopressor (Beta Richard)) 100 mg PO BID [facility] Last Admin: 09/30/18 09:26 Dose: 100 mg Montelukast Sodium (Singulair) 10 mg PO QHS [facility] Last Admin: 09/29/18 21:11 Dose: 10 mg Nitroglycerin (Nitrostat) 0.4 mg SUBLINGUAL Q5M PRN PRN Reason: Chest Pain Sodium Chloride () 5 - 15 ml IV UD PRN PRN Reason: SALINE FLUSH Last Admin: 09/30/18 09:30 Dose: 10 ml Medical Necessity - Tobacco Use Smoking Status: Former smoker Tobacco Use: Non-smoker Assessment/Plan All Active Problems (Last Reviewed 07/30/18 @ 15:46 by Maria L Ortiz) Bilateral cellulitis of lower leg (Acute) Acute on chronic respiratory failure with hypoxemia (Acute) Flu-like symptoms (Acute) Hypoxia (Acute) Change in mental status (Acute) Encephalopathy (Acute) Hyperkalemia (Acute) PSVT (paroxysmal supraventricular tachycardia) (Acute) BRBPR (bright red blood per rectum) (Resolved) C. difficile colitis (Resolved) Cholelithiasis (Resolved) Hyperkalemia (Resolved) 67-year-old female was admitted from SNF with hypoxia and mental status and has been admitted to the ICU managed at acute hypoxic and hypercapnic respiratory failure. 1. Tachycardia, paroxysmal SVTs, resolved, in normal sinus rhythm, continue on metoprolol and Cardizem 2. Acute hypoxic/hypercarbic combined respiratory failure secondary to acute on chronic diastolic CHF/HCAP, Improving, currently on 4 L of oxygen, will continue on oxygen as well as BiPAP QHS and prn 3. Acute on chronic diastolic CHF/pulmonary hypertension/valvular heart disease, improving Diuresing well, will decrease Lasix to 40mg bid, continue on CHF protocol. 4. Acute metabolic/infectious encephalopathy, improved, patient still intermittently confused 5. Healthcare acquired pneumonia, likely secondary to suspected gram-negative organism and possible MRSA On vancomycin and cefepime (day 7), will finish off on antibiotics. 6. KIM on CKD stage III, remains at the baseline, slightly elevated from previous nephrology following, will monitor creatinine whilst on diuretics 7. Hypernatremia, secondary to dehydration, mildly improved, asymptomatic, will continue to monitor, repeat blood work in a.m. 8. CAD s/p 3-vessel CABG/PAD, on plavix, Imdur, nitro prn 9. Hyperlipidemia, off statins for now 10. Hypertension, controlled on metoprolol, continue to monitor 11. DVT PPx- Lovenox SC 12. Disposition:possible DC tomorrow to SNF Code Visit Inpatient E&M: 05007 Subs Hosp L2
--- NOTE | 2018-09-30 14:27 | PN_ITS ---
Patient Problems: Active and Suspected Problems (Last Reviewed 07/30/18 @ 15:46 by Maria L Ortiz) Hypoxia (Acute) Change in mental status (Acute) Encephalopathy (Acute) Hyperkalemia (Acute) PSVT (paroxysmal supraventricular tachycardia) (Acute) Subjective: Patient was seen and examined. No new complains. No acute events. Objective: Physical exam: General: Alert, Cooperative, No apparent distress, hard of hearing, confusion has improved HEENT: Atraumatic, PERRLA, EOMI, Normocephalic Oral: Moist Mucosa Neck: Supple Lungs: Diminished Cardiovascular: Regular rate, Regular Rhythm, Normal S1, Normal S2, No murmurs Abdomen: Bowel Sounds Present, Soft, Non Tender, Non-Distended, No Hepato- splenomegaly Extremities: Bilateral leg edema as well as bilateral hands, +3-4 Skin: - - Bilateral lower extremities edema +3 with erythema and areas of ulceration, worse on the right Musculoskeletal: No Tenderness to Palpation of Joints or Extremities Lymphatic: No Cervical, Supraclavicular, or Inguinal Adenopathy Neurological: Cranial nerves II-XII grossly intact Psych/Mental Status: Normal Affect, Appropriate Vitals/I&O's: Vital Signs Temp Pulse Resp BP Pulse Ox 97.9 F 68 20 H 119/55 L 93 09/30/18 09:22 09/30/18 13:25 09/30/18 13:25 09/30/18 09:26 09/30/18 09:22 Oxygen Flow Rate (L/min) 5 Oxygen Delivery Method Nasal Cannula Weight: 113.6 kg Body Mass Index (BMI) 37.5 Finger Stick Blood Glucose 74 Intake and Output for Last 24 Hours 09/28/18 09/29/18 09/30/18 23:59 23:59 23:59 Intake Total 1490 / 1490 1380 / 1380 535 / 535 Output Total 1650 / 1650 650 / 650 400 / 400 Balance -160 / -160 730 / 730 135 / 135 Microbiology Past 72 Hours 09/24/18 19:20 Blood Culture (Wb) - Anticubital Left Blood Culture - Final No growth in 5 days. 09/24/18 19:08 Blood Culture (Wb) - Right Hand Blood Culture - Final No growth in 5 days. 09/27/18 21:15 Sputum, Expectorated/Coughed Gram Stain - Final 09/27/18 21:15 Sputum, Expectorated/Coughed Respiratory Culture - Final Coag Negative Staph Coag Negative Staph#2 Laboratory Results 09/29/18 06:30: Magnesium 2.2 09/29/18 17:04: POC Glucose 225 H 09/29/18 21:17: POC Glucose 255 H 09/30/18 06:20: Sodium 147 H, Potassium 4.5, Chloride 117 H, Carbon Dioxide 23.0, Anion Gap 7, BUN 68 H, Creatinine 2.43 H, Estim Creat Clear Calc 22.66, Est GFR (MDRD) Af Amer 26 L, Est GFR (MDRD) Non-Af 21 L, BUN/Creatinine Ratio 28.0 H, Glucose 139 H, Calcium 7.6 L 09/30/18 06:20: Total Bilirubin 0.50, Direct Bilirubin 0.20, AST 20, ALT 21, Alkaline Phosphatase 95, Total Protein 5.6 L, Albumin 2.1 L, Globulin 3.5 09/30/18 06:56: POC Glucose 135 H 09/30/18 11:25: POC Glucose 184 H Current Medications Acetaminophen (Tylenol) 650 mg RECTAL Q6H PRN PRN PRN Reason: pain/fever Last Admin: 09/25/18 21:45 Dose: 650 mg Acetaminophen (Tylenol) 650 mg PO Q6H PRN PRN PRN Reason: Pain/fever Last Admin: 09/26/18 23:40 Dose: 650 mg Albuterol/Ipratropium (Duoneb) 3 ml INHALATION Q6HWA.RT [facility] Last Admin: 09/30/18 13:21 Dose: 3 ml Ascorbic Acid (Vitamin C) 500 mg PO DAILY@0800 [facility] Last Admin: 09/30/18 09:19 Dose: 500 mg Calamine/Phenol (Calmoseptine Ointment) 1 applic TOPICAL TID [facility]; Protocol Last Admin: 09/30/18 05:49 Dose: 1 applicatio Chlorhexidine Gluconate () 1 each TOPICAL DAILY [facility] Last Admin: 09/30/18 09:18 Dose: Not Given Clopidogrel Bisulfate (Plavix) 75 mg PO DAILY [facility] Last Admin: 09/30/18 09:19 Dose: 75 mg Diltiazem HCl (Cardizem Cd) 120 mg PO DAILY [facility] Last Admin: 09/30/18 09:26 Dose: 120 mg Enoxaparin Sodium (Lovenox) 30 mg SC DAILY@1000 [facility] Last Admin: 09/30/18 09:21 Dose: 30 mg Ferrous Gluconate ([facility]ous [facility]conate) [facility] Last Admin: 09/30/18 09:19 Dose: 324 mg Fluticasone Propionate (Flonase Nasal [place]) 2 spray NASAL DAILY [facility] Last Admin: 09/30/18 09:18 Dose: 2 spray Sodium Chloride () 250 mls @ 15 mls/hr IV .[id number] PRN PRN Reason: SALINE FLUSH Last Admin: 09/28/18 21:01 Dose: 15 mls/hr Vancomycin HCl 1,500 mg/ (Sodium Chloride) 530 mls @ 250 mls/hr IV Q24H [facility] Stop: 10/01/18 00:08 Last Admin: 09/29/18 22:44 Dose: 250 mls/hr Cefepime HCl 1 gm/ Sodium (Chloride) 50 mls @ 100 mls/hr IV Q12 [facility] Stop: 09/30/18 22:29 Last Admin: 09/30/18 09:34 Dose: 100 mls/hr Insulin Human Lispro (Humalog Kwikpen (Bkc)) 0 unit SC [facility]; Protocol Last Admin: 09/30/18 11:30 Dose: 1 u Isosorbide Mononitrate (Imdur) 60 mg PO DAILY [facility] Last Admin: 09/30/18 09:26 Dose: 60 mg Lactobacillus Acidophilus (Acidophilus) 1 tablet PO BID [facility] Last Admin: 09/30/18 09:19 Dose: 1 tablet Magnesium Hydroxide (Milk Of Magnesia) 30 ml PO DAILY PRN PRN PRN Reason: Constipation Metoprolol Tartrate (Lopressor (Beta Richard)) 100 mg PO BID [facility] Last Admin: 09/30/18 09:26 Dose: 100 mg Montelukast Sodium (Singulair) 10 mg PO QHS [facility] Last Admin: 09/29/18 21:11 Dose: 10 mg Nitroglycerin (Nitrostat) 0.4 mg SUBLINGUAL Q5M PRN PRN Reason: Chest Pain Sodium Chloride () 5 - 15 ml IV UD PRN PRN Reason: SALINE FLUSH Last Admin: 09/30/18 09:30 Dose: 10 ml Medical Necessity - Tobacco Use Smoking Status: Former smoker Tobacco Use: Non-smoker Assessment/Plan All Active Problems (Last Reviewed 07/30/18 @ 15:46 by Maria L Ortiz) Bilateral cellulitis of lower leg (Acute) Acute on chronic respiratory failure with hypoxemia (Acute) Flu-like symptoms (Acute) Hypoxia (Acute) Change in mental status (Acute) Encephalopathy (Acute) Hyperkalemia (Acute) PSVT (paroxysmal supraventricular tachycardia) (Acute) BRBPR (bright red blood per rectum) (Resolved) C. difficile colitis (Resolved) Cholelithiasis (Resolved) Hyperkalemia (Resolved) 67-year-old female was admitted from SNF with hypoxia and mental status and has been admitted to the ICU managed at acute hypoxic and hypercapnic respiratory failure. 1. Tachycardia, paroxysmal SVTs, resolved, in normal sinus rhythm, continue on metoprolol and Cardizem 2. Acute hypoxic/hypercarbic combined respiratory failure secondary to acute on chronic diastolic CHF/HCAP, Improving, currently on 4 L of oxygen, will continue on oxygen as well as BiPAP QHS and prn 3. Acute on chronic diastolic CHF/pulmonary hypertension/valvular heart disease, improving Diuresing well, will decrease Lasix to 40mg bid, continue on CHF protocol. 4. Acute metabolic/infectious encephalopathy, improved, patient still intermittently confused 5. Healthcare acquired pneumonia, likely secondary to suspected gram-negative organism and possible MRSA On vancomycin and cefepime (day 7), will finish off on antibiotics. 6. KIM on CKD stage III, remains at the baseline, slightly elevated from previous nephrology following, will monitor creatinine whilst on diuretics 7. Hypernatremia, secondary to dehydration, mildly improved, asymptomatic, will continue to monitor, repeat blood work in a.m. 8. CAD s/p 3-vessel CABG/PAD, on plavix, Imdur, nitro prn 9. Hyperlipidemia, off statins for now 10. Hypertension, controlled on metoprolol, continue to monitor 11. DVT PPx- Lovenox SC 12. Disposition:possible DC tomorrow to SNF Code Visit Inpatient E&M: 28668 Subs Hosp L2
[2018-09-30 16:51] LABS: Bedside Glucose 151 mg/dL (70-110)
--- NOTE | 2018-09-30 22:00 | NURSING ---
The SHREDDING SPECIALIST called this RN stating patient was yelling and had nasal canula off. Nasal canula was placed back on patient and this RN went up front to get vital machine. Upon returning this RN found patient without her nasal canula on again and she was sating at 86%. Patient went up to 88-89 on 5L NC, Patient was raised to 6 L NC and patient was sating at 95%.
[2018-09-30 22:35] LABS: Bedside Glucose 129 mg/dL (70-110)
[2018-10-01] VITALS (14 sets, daily range): BP systolic 97–140; BP diastolic 42–62; PULSE 56–66; RESP 16–22; TEMP 36.5–37.1; O2SAT 88–95
[2018-10-01] MEDS: Menthol/Lanolin/Calamine/Znox 113 GM Tube 1 APPLIC TOPICAL ×3 (00:16→14:35)
[2018-10-01] MEDS: Metoprolol Tartrate 100 MG Tablet PO ×2 (00:17→09:31)
[2018-10-01] MEDS: Montelukast 10 MG Tablet PO (00:17)
[2018-10-01] MEDS: 0.9% NaCl Peripheral Flush Adult/Peds IV ×4 (04:08→15:50)
[2018-10-01 04:43] LABS: Anion Gap 7 (5-15); BUN 68 mg/dL (7-18); BUN/Creat Ratio 27.5 RATIO (10-20); Calcium,Total 7.4 mg/dL (8.5-10.1); Chloride 116 mmol/L (98-107); Creatinine, Serum 2.47 mg/dL (0.55-1.02); EST Glomerular Filtration Rate 21 mL/min (>60); Est Glom Filt Rate - Afr Amer 25 mL/min (>60); Glucose 137 mg/dL (74-106); Potassium 4.8 mmol/L (3.5-5.1); Sodium Level 147 mmol/L (136-145)
[2018-10-01 07:01] LABS: Bedside Glucose 131 mg/dL (70-110)
--- NOTE | 2018-10-01 07:14 | PCM.PN.CARD ---
Subjectve: Patient seen and evaluated. Appears to be sleeping. Objective: Vital Signs Temp Pulse Resp BP Pulse Ox 98.7 F 59 L 18 115/46 L 93 10/01/18 06:33 10/01/18 06:33 10/01/18 06:33 10/01/18 06:33 10/01/18 06:33 Oxygen Flow Rate (L/min) 6 Oxygen Delivery Method Nasal Cannula Weight: 252 lb 10.396 oz Body Mass Index (BMI) 37.5 Finger Stick Blood Glucose 74 Intake and Output for Last 24 Hours 09/29/18 09/30/18 10/01/18 23:59 23:59 23:59 Intake Total 1380 / 1380 1288 / 1288 505 / 505 Output Total 650 / 650 875 / 875 100 / 100 Balance 730 / 730 413 / 413 405 / 405 General: Awake, Alert, Oriented x 3 HEENT: PERRL, EOMI, Sclera Non Icteric Neck: Supple, Good ROM, No Lymph Node Enlargement Lungs: Clear to auscultation Cardiovascular: Regular Rhythm, Normal S1, Normal S2, No Rubs, No Gallops Murmur Murmur: Grade 2/6, Early Systolic, LLSB Vascular: No Carotid Bruits, Normal Femoral Pulses, Normal Radial Pulses, Normal Dorsalis Pedal Pulse, Normal Posterior Tibial Pulses Abdomen: Bowel Sounds Present, Soft, Non Tender, No HSM, No Organomegaly Extremities: No Cyanosis, No Clubbing, No edema Lymphatic: No Lymph Node Enlargement Neurological: No Focal Motor or Sensory Deficit Psych/Mental Status: Appropriate 09/30/18 06:20: Total Bilirubin 0.50, Direct Bilirubin 0.20 10/01/18 04:05: Sodium 147 H, Potassium 4.8, Chloride 116 H, Carbon Dioxide 24.0, Anion Gap 7, BUN 68 H, Creatinine 2.47 H, Est GFR (MDRD) Af Amer 25 L, Est GFR (MDRD) Non-Af 21 L, BUN/Creatinine Ratio 27.5 H, Glucose 137 H, Calcium 7.4 L Rhythm: EKG: ECHO: Stress Test: Cardiac Cath: PCI: CT Surgery: Holter monitor: EPS: PPM: CXR: Chest CT Scan: Medical Necessity - Tobacco Use Smoking Status: Former smoker Tobacco Use: Non-smoker Assessment/Plan 1. PSVT The patient has had episodes of a PSVT. It appears potentially compatible with an ectopic atrial tachycardia. She will continue on her beta-apryl and calcium channel apryl combination at this time. It does not appear that she has had any recurrences. 2. CAD status post PCI and CABG She does have a history of CAD and CABG. It appears she is also had a history of PCI. At the present time she is without any acute symptoms. Her troponin I levels have been indeterminate. These may be a type II secondary event brought out by her COPD exacerbation. Her ECG is demonstrated no new acute changes. Her transthoracic echocardiogram just demonstrates preserved left ventricular size, wall motion, and systolic function. At the present time she will continue medical management. It is not felt she is required further invasive cardiovascular evaluation or care at this time. This could change depending upon her clinical course. 3. Valvular heart disease She does have valvular heart disease. She has evidence of both mitral valve stenosis and aortic valve stenosis. Her aortic stenosis appears to be moderate. She really does not meet the criteria for aortic valve replacement despite the fact that her gradients have increased. In addition due to her renal dysfunction I am hesitant to proceed with any further dye related procedure At the present time she is continuing medical management. 4. Hyperlipidemia The patient will continue risk factor evaluation and care. 5. Hypertension The patient will continue medical therapy with adjustment as deemed appropriate. 6. Pulmonary hypertension She does have severe pulmonary hypertension likely secondary to her valvular heart disease. She may have some intrinsic lung disease as well. We would continue diuretics as appropriate. This note was generated with [employer] dictation software. It may contain incorrect words, spelling, and punctuation that were not noted in checking the note before signing.
[2018-10-01] MEDS: Ipratropium/Albuterol Sulfate 3 ML AMPUL.NEB INHALATION ×2 (07:29→13:28)
--- NOTE | 2018-10-01 08:23 | CPS ---
pt increased to 8 lpm....sat to 90%. Nurse aware
[2018-10-01] MEDS: Bumetanide 0.5 MG Tablet 1.5 MG PO (09:31)
[2018-10-01] MEDS: Ferrous Gluconate 324 MG Tablet PO ×2 (09:31→17:22)
[2018-10-01] MEDS: Clopidogrel Bisulfate 75 MG Tablet PO (09:31)
[2018-10-01] MEDS: Fluticasone 0.05% 1 SPRAY NASAL.SRY 2 SPRAY NASAL (09:31)
[2018-10-01] MEDS: dilTIAZem CD 120 MG Capsule PO (09:31)
[2018-10-01] MEDS: Isosorbide Mononitrate 60 MG Tablet PO (09:31)
[2018-10-01] MEDS: Ascorbic Acid 500 MG Tablet PO (09:31)
[2018-10-01] MEDS: Enoxaparin 30 MG/0.3 ML Syringe SC (09:34)
--- NOTE | 2018-10-01 09:39 | PCM.PN.REN ---
Patient Problems: Active and Suspected Problems (Last Reviewed 07/30/18 @ 15:46 by Maria L Ortiz) Hypoxia (Acute) Change in mental status (Acute) Encephalopathy (Acute) Hyperkalemia (Acute) PSVT (paroxysmal supraventricular tachycardia) (Acute) Subjective: O2 demand increase to 7 L this morning with holding diuretics No nausea no vomiting. - Physical Exam General: No apparent distress HEENT: Atraumatic Oral: Moist Mucosa Neck: Supple, No JVD Lungs: Diminished, Rhonchi Cardiovascular: Regular rate, Regular Rhythm, Normal S1, Normal S2 Abdomen: Bowel Sounds Present, Non Tender Extremities: Edema - +3 edema of lower extremities Musculoskeletal: No Muscle Wasting Lymphatic: No Cervical, Supraclavicular, or Inguinal Adenopathy Neurological: Neuro grossly intact Psych/Mental Status: Appropriate Vital Signs Temp Pulse Resp BP Pulse Ox 97.8 F 63 17 115/50 L 94 10/01/18 09:26 10/01/18 09:26 10/01/18 09:26 10/01/18 09:26 10/01/18 09:26 Oxygen Flow Rate (L/min) 8 Oxygen Delivery Method Nasal Cannula Weight: 114.6 kg Body Mass Index (BMI) 37.5 Finger Stick Blood Glucose 74 Intake and Output for Last 24 Hours 09/29/18 09/30/18 10/01/18 23:59 23:59 23:59 Intake Total 1380 / 1380 1288 / 1288 505 / 505 Output Total 650 / 650 875 / 875 100 / 100 Balance 730 / 730 413 / 413 405 / 405 Microbiology Past 72 Hours 09/24/18 19:20 Blood Culture - Final Blood Culture (Wb) - Anticubital Left No growth in 5 days. 09/24/18 19:08 Blood Culture - Final Blood Culture (Wb) - Right Hand No growth in 5 days. 09/27/18 21:15 Gram Stain - Final Sputum, Expectorated/Coughed Respiratory Culture - Final Coag Negative Staph Coag Negative Staph#2 Laboratory Tests Past 24 Hrs 10/01/18 04:05 Sodium 147 H Potassium 4.8 Chloride 116 H Carbon Dioxide 24.0 Anion Gap 7 BUN 68 H Creatinine 2.47 H Estim Creat Clear Calc 22.30 Est GFR (MDRD) Af Amer 25 L Est GFR (MDRD) Non-Af 21 L BUN/Creatinine Ratio 27.5 H Glucose 137 H Calcium 7.4 L POC Glucose 10/01/18 09/30/18 09/30/18 06:39 22:28 16:22 POC Glucose 131 H 129 H 151 H 09/30/18 11:25 POC Glucose 184 H Medical Necessity - Tobacco Use Smoking Status: Former smoker Tobacco Use: Non-smoker Assessment/Plan All Active Problems (Last Reviewed 07/30/18 @ 15:46 by Maria L Ortiz) Bilateral cellulitis of lower leg (Acute) Acute on chronic respiratory failure with hypoxemia (Acute) Flu-like symptoms (Acute) Hypoxia (Acute) Change in mental status (Acute) Encephalopathy (Acute) Hyperkalemia (Acute) PSVT (paroxysmal supraventricular tachycardia) (Acute) BRBPR (bright red blood per rectum) (Resolved) C. difficile colitis (Resolved) Cholelithiasis (Resolved) Hyperkalemia (Resolved) 1-Acute kidney injury most probably prerenal from severe , severe PAH,and being on diuretic. Unknown if the patient has CKD but she is most probably has CKD from comorbidities Cr stabilized with holding diuretic but 02 demand increased. I agree with resuming diuretic with Bumex 1.5 mg PO BID We have to accept higher baseline Cr to achieve adequate control of volume status Continue to monitor renal function panel. Avoid CARLOS A inhibitor or ARB. No indication for hemodialysis. Keep MAP >54 Will d/w network support specialist about TAVR possibility 2-hyperkalemia from acute kidney injury. Resolved.K is 4.8 Patient was treated medically with D50 and insulin along with calcium gluconate. 3-Acute respiratory failure from pneumonia and pulmonary hypertension ( from severe ). Pneumonia treatment as per the hospitalist service. Resume diuretics as above Continue O2 support to maintain oxygen saturation more than 92%. 4-hypertension. Please avoid vasodilator with severe aortic stenosis. Avoid CARLOS A inhibitor or ARB Blood pressure is well controlled. 5- Hypernatremia: Na level stable at 147. Will continue to monitor with diuretic Renal team to continue to follow. Please call with any question at [phone] Plan of care was d/w Dr. Wilfred Moreno MD
--- NOTE | 2018-10-01 09:45 | PN.RENAL_ITS ---
Patient Problems: Active and Suspected Problems (Last Reviewed 07/30/18 @ 15:46 by Maria L Ortiz) Hypoxia (Acute) Change in mental status (Acute) Encephalopathy (Acute) Hyperkalemia (Acute) PSVT (paroxysmal supraventricular tachycardia) (Acute) Subjective: O2 demand increase to 7 L this morning with holding diuretics No nausea no vomiting. - Physical Exam General: No apparent distress HEENT: Atraumatic Oral: Moist Mucosa Neck: Supple, No JVD Lungs: Diminished, Rhonchi Cardiovascular: Regular rate, Regular Rhythm, Normal S1, Normal S2 Abdomen: Bowel Sounds Present, Non Tender Extremities: Edema - +3 edema of lower extremities Musculoskeletal: No Muscle Wasting Lymphatic: No Cervical, Supraclavicular, or Inguinal Adenopathy Neurological: Neuro grossly intact Psych/Mental Status: Appropriate Vital Signs Temp Pulse Resp BP Pulse Ox 97.8 F 63 17 115/50 L 94 10/01/18 09:26 10/01/18 09:26 10/01/18 09:26 10/01/18 09:26 10/01/18 09:26 Oxygen Flow Rate (L/min) 8 Oxygen Delivery Method Nasal Cannula Weight: 114.6 kg Body Mass Index (BMI) 37.5 Finger Stick Blood Glucose 74 Intake and Output for Last 24 Hours 09/29/18 09/30/18 10/01/18 23:59 23:59 23:59 Intake Total 1380 / 1380 1288 / 1288 505 / 505 Output Total 650 / 650 875 / 875 100 / 100 Balance 730 / 730 413 / 413 405 / 405 Microbiology Past 72 Hours 09/24/18 19:20 Blood Culture - Final Blood Culture (Wb) - Anticubital Left No growth in 5 days. 09/24/18 19:08 Blood Culture - Final Blood Culture (Wb) - Right Hand No growth in 5 days. 09/27/18 21:15 Gram Stain - Final Sputum, Expectorated/Coughed Respiratory Culture - Final Coag Negative Staph Coag Negative Staph#2 Laboratory Tests Past 24 Hrs 10/01/18 04:05 Sodium 147 H Potassium 4.8 Chloride 116 H Carbon Dioxide 24.0 Anion Gap 7 BUN 68 H Creatinine 2.47 H Estim Creat Clear Calc 22.30 Est GFR (MDRD) Af Amer 25 L Est GFR (MDRD) Non-Af 21 L BUN/Creatinine Ratio 27.5 H Glucose 137 H Calcium 7.4 L POC Glucose 10/01/18 09/30/18 09/30/18 06:39 22:28 16:22 POC Glucose 131 H 129 H 151 H 09/30/18 11:25 POC Glucose 184 H Medical Necessity - Tobacco Use Smoking Status: Former smoker Tobacco Use: Non-smoker Assessment/Plan All Active Problems (Last Reviewed 07/30/18 @ 15:46 by Maria L Ortiz) Bilateral cellulitis of lower leg (Acute) Acute on chronic respiratory failure with hypoxemia (Acute) Flu-like symptoms (Acute) Hypoxia (Acute) Change in mental status (Acute) Encephalopathy (Acute) Hyperkalemia (Acute) PSVT (paroxysmal supraventricular tachycardia) (Acute) BRBPR (bright red blood per rectum) (Resolved) C. difficile colitis (Resolved) Cholelithiasis (Resolved) Hyperkalemia (Resolved) 1-Acute kidney injury most probably prerenal from severe , severe PAH,and being on diuretic. Unknown if the patient has CKD but she is most probably has CKD from comorbidities Cr stabilized with holding diuretic but 02 demand increased. I agree with resuming diuretic with Bumex 1.5 mg PO BID We have to accept higher baseline Cr to achieve adequate control of volume status Continue to monitor renal function panel. Avoid CARLOS A inhibitor or ARB. No indication for hemodialysis. Keep MAP >54 Will d/w stemhole borer about TAVR possibility 2-hyperkalemia from acute kidney injury. Resolved.K is 4.8 Patient was treated medically with D50 and insulin along with calcium gluconate. 3-Acute respiratory failure from pneumonia and pulmonary hypertension ( from se og ). Pneumonia treatment as per the hospitalist service. Resume diuretics as above Continue O2 support to maintain oxygen saturation more than 92%. 4-hypertension. Please avoid vasodilator with severe aortic stenosis. Avoid CARLOS A inhibitor or ARB Blood pressure is well controlled. 5- Hypernatremia: Na level stable at 147. Will continue to monitor with diuretic Renal team to continue to follow. Please call with any question at [phone] Plan of care was d/w Dr. Wilfred Moreno MD
--- NOTE | 2018-10-01 10:08 | PCM.PN.PUL ---
Patient Problems: Active and Suspected Problems (Last Reviewed 07/30/18 @ 15:46 by Maria L Ortiz) Hypoxia (Acute) Change in mental status (Acute) Encephalopathy (Acute) Hyperkalemia (Acute) PSVT (paroxysmal supraventricular tachycardia) (Acute) Subjective: Patient did okay overnight. Nursing has reported significant desaturation with any movement and patient did have to be increased to 7 L/min this morning following transition to the chair. Patient with no complaints - Physical Exam General: Alert, Cooperative, No apparent distress - At rest. HEENT: Atraumatic, PERRLA, EOMI, Normocephalic, - - No scleral icterus or injection noted Oral: Moist Mucosa, No Gingival or Mucosal Lesions/ Ulcerations Neck: Supple, No Nodes, Trachea Midline, JVD, Right Lungs: No rhonchi, No wheeze, Diminished, Rales - Posterior bases, - - Symmetric expansion Cardiovascular: Regular rate, Regular Rhythm, Normal S1, Normal S2, Murmur, No rub noted, No Gallop Abdomen: Bowel Sounds Present, Soft, Non Tender, Non-Distended, Obese Extremities: No cyanosis, Clubbing, Edema Skin: - - No significant change Musculoskeletal: No Tenderness to Palpation of Joints or Extremities Lymphatic: No Cervical, Supraclavicular, or Inguinal Adenopathy Neurological: Cranial nerves II-XII grossly intact, Neuro grossly intact Psych/Mental Status: Appropriate, Flat Affect Vital Signs Temp Pulse Resp BP Pulse Ox 36.6 C 63 17 115/50 L 94 10/01/18 09:26 10/01/18 09:31 10/01/18 09:26 10/01/18 09:31 10/01/18 09:26 Oxygen Flow Rate (L/min) 8 Oxygen Delivery Method Nasal Cannula Weight: 114.6 kg Body Mass Index (BMI) 37.5 Finger Stick Blood Glucose 74 Intake and Output for Last 24 Hours 09/29/18 09/30/18 10/01/18 23:59 23:59 23:59 Intake Total 1380 / 1380 1288 / 1288 505 / 505 Output Total 650 / 650 875 / 875 100 / 100 Balance 730 / 730 413 / 413 405 / 405 Microbiology Past 72 Hours 09/24/18 19:20 Blood Culture - Final Blood Culture (Wb) - Anticubital Left No growth in 5 days. 09/24/18 19:08 Blood Culture - Final Blood Culture (Wb) - Right Hand No growth in 5 days. 09/27/18 21:15 Gram Stain - Final Sputum, Expectorated/Coughed Respiratory Culture - Final Coag Negative Staph Coag Negative Staph#2 Laboratory Tests Past 24 Hrs 10/01/18 04:05 Sodium 147 H Potassium 4.8 Chloride 116 H Carbon Dioxide 24.0 Anion Gap 7 BUN 68 H Creatinine 2.47 H Estim Creat Clear Calc 22.30 Est GFR (MDRD) Af Amer 25 L Est GFR (MDRD) Non-Af 21 L BUN/Creatinine Ratio 27.5 H Glucose 137 H Calcium 7.4 L POC Glucose 10/01/18 09/30/18 09/30/18 06:39 22:28 16:22 POC Glucose 131 H 129 H 151 H 09/30/18 11:25 POC Glucose 184 H Medical Necessity - Tobacco Use Smoking Status: Former smoker Tobacco Use: Non-smoker Assessment/Plan All Active Problems (Last Reviewed 07/30/18 @ 15:46 by Maria L Ortiz) Bilateral cellulitis of lower leg (Acute) Acute on chronic respiratory failure with hypoxemia (Acute) Flu-like symptoms (Acute) Hypoxia (Acute) Change in mental status (Acute) Encephalopathy (Acute) Hyperkalemia (Acute) PSVT (paroxysmal supraventricular tachycardia) (Acute) BRBPR (bright red blood per rectum) (Resolved) C. difficile colitis (Resolved) Cholelithiasis (Resolved) Hyperkalemia (Resolved) RECOMMENDATIONS: 1. Continue BiPAP therapy with sleep. Wean as tolerated. 2. Diuresis per nephrology. Increase diuretic doses 3. Monitor off of antibiotics 4. Wean oxygen as tolerated 5. Wound nurse for lower extremity IMPRESSIONS: 1. Acute hypoxemic and hypercarbic respiratory failure with concerns for underlying healthcare associated pneumonia The patient does have radiographic evidence of an underlying pulmonary infectious process and fever previously. Patient likely also has an elevation of cardiac pressures complicating overall condition. Patient is slowly gaining weight throughout the hospitalization. Minor rales are noted on exam. Unclear if this is related to atelectasis versus fluid overload. We will increase diuretic therapy. Patient would benefit from being out of bed as tolerated. 2. Abnormal CT head Initial CT head revealed white matter ischemic changes of unclear chronicity. Repeat CT scan showed extensive sinus involvement. No bleeds have been noted. 3. Encephalopathy Improved. Appears to be at her baseline at this time. Likely metabolic in nature. Complicated by underlying hearing loss. 4. Troponin elevation/underlying heart failure with preserved ejection fraction/aortic valve stenosis/coronary artery disease Likely secondary to demand ischemia in the setting of #1. Avoid use of supplemental IV fluids, given valvular stenosis, pulmonary hypertension and diastolic dysfunction. Diuresis per nephrology. 5. Acute on chronic kidney disease/hyperkalemia Nephrology opinion appreciated. No current indication for renal replacement therapy. Continue medical management of the patient's elevated potassium level. Patient appears to be responding to diuresis appropriately. Hypernatremia and hyperchloremia continue to improve. 6. Obesity/hyperlipidemia/hypertension/diabetes/lower extremity cellulitis Complicates care, management, recovery and prognosis. Patient back on a full diet. Code Visit Inpatient E&M: 28464 Subs Hosp L3
[2018-10-01] MEDS: Insulin Lispro 100 UNIT/ML INSULN.PEN SC (11:17)
[2018-10-01 11:26] LABS: Bedside Glucose 173 mg/dL (70-110)
--- NOTE | 2018-10-01 11:27 | PN_ITS ---
Patient Problems: Active and Suspected Problems (Last Reviewed 07/30/18 @ 15:46 by Maria L Ortiz) Hypoxia (Acute) Change in mental status (Acute) Encephalopathy (Acute) Hyperkalemia (Acute) PSVT (paroxysmal supraventricular tachycardia) (Acute) Vitals/I&O's: Vital Signs Temp Pulse Resp BP Pulse Ox 97.8 F 63 17 115/50 L 94 10/01/18 09:26 10/01/18 09:31 10/01/18 09:26 10/01/18 09:31 10/01/18 09:26 Oxygen Flow Rate (L/min) 8 Oxygen Delivery Method Nasal Cannula Weight: 114.6 kg Body Mass Index (BMI) 37.5 Finger Stick Blood Glucose 74 Intake and Output for Last 24 Hours 09/29/18 09/30/18 10/01/18 23:59 23:59 23:59 Intake Total 1380 / 1380 1288 / 1288 505 / 505 Output Total 650 / 650 875 / 875 100 / 100 Balance 730 / 730 413 / 413 405 / 405 Microbiology Past 72 Hours 09/24/18 19:20 Blood Culture (Wb) - Anticubital Left Blood Culture - Final No growth in 5 days. 09/24/18 19:08 Blood Culture (Wb) - Right Hand Blood Culture - Final No growth in 5 days. 09/27/18 21:15 Sputum, Expectorated/Coughed Gram Stain - Final 09/27/18 21:15 Sputum, Expectorated/Coughed Respiratory Culture - Final Coag Negative Staph Coag Negative Staph#2 Laboratory Results 09/30/18 11:25: POC Glucose 184 H 09/30/18 16:22: POC Glucose 151 H 09/30/18 22:28: POC Glucose 129 H 10/01/18 04:05: Sodium 147 H, Potassium 4.8, Chloride 116 H, Carbon Dioxide 24.0, Anion Gap 7, BUN 68 H, Creatinine 2.47 H, Estim Creat Clear Calc 22.30, Est GFR (MDRD) Af Amer 25 L, Est GFR (MDRD) Non-Af 21 L, BUN/Creatinine Ratio 27.5 H, Glucose 137 H, Calcium 7.4 L 10/01/18 06:39: POC Glucose 131 H 10/01/18 11:14: POC Glucose 173 H Current Medications Acetaminophen (Tylenol) 650 mg RECTAL Q6H PRN PRN PRN Reason: pain/fever Last Admin: 09/25/18 21:45 Dose: 650 mg Acetaminophen (Tylenol) 650 mg PO Q6H PRN PRN PRN Reason: Pain/fever Last Admin: 09/26/18 23:40 Dose: 650 mg Albuterol/Ipratropium (Duoneb) 3 ml INHALATION Q6HWA.RT [facility] Last Admin: 10/01/18 07:29 Dose: 3 ml Ascorbic Acid (Vitamin C) 500 mg PO DAILY@0800 [facility] Last Admin: 10/01/18 09:31 Dose: 500 mg Bumetanide (Bumex) 1.5 mg PO BID [facility] Last Admin: 10/01/18 09:31 Dose: 1.5 mg Calamine/Phenol (Calmoseptine Ointment) 1 applic TOPICAL TID [facility]; Protocol Last Admin: 10/01/18 06:36 Dose: 1 applicatio Clopidogrel Bisulfate (Plavix) 75 mg PO DAILY [facility] Last Admin: 10/01/18 09:31 Dose: 75 mg Diltiazem HCl (Cardizem Cd) 120 mg PO DAILY [facility] Last Admin: 10/01/18 09:31 Dose: 120 mg Enoxaparin Sodium (Lovenox) 30 mg SC DAILY@1000 [facility] Last Admin: 10/01/18 09:34 Dose: 30 mg Ferrous Gluconate (Ferrous Gluconate) [facility] Last Admin: 10/01/18 09:31 Dose: 324 mg Fluticasone Propionate (Flonase Nasal [place]) 2 spray NASAL DAILY [facility] Last Admin: 10/01/18 09:31 Dose: 2 spray Sodium Chloride () 250 mls @ 15 mls/hr IV .[id number] PRN PRN Reason: SALINE FLUSH Last Admin: 09/28/18 21:01 Dose: 15 mls/hr Insulin Human Lispro (Humalog Kwikpen (Bkc)) 0 unit SC [facility]; Protocol Last Admin: 10/01/18 11:17 Dose: 1 u Isosorbide Mononitrate (Imdur) 60 mg PO DAILY [facility] Last Admin: 10/01/18 09:31 Dose: 60 mg Lactobacillus Acidophilus (Acidophilus) 1 tablet PO BID [facility] Last Admin: 10/01/18 09:31 Dose: 1 tablet Magnesium Hydroxide (Milk Of Magnesia) 30 ml PO DAILY PRN PRN PRN Reason: Constipation Metoprolol Tartrate (Lopressor (Beta Richard)) 100 mg PO BID [facility] Last Admin: 10/01/18 09:31 Dose: 100 mg Montelukast Sodium (Singulair) 10 mg PO QHS [facility] Last Admin: 10/01/18 00:17 Dose: 10 mg Nitroglycerin (Nitrostat) 0.4 mg SUBLINGUAL Q5M PRN PRN Reason: Chest Pain Sodium Chloride () 5 - 15 ml IV UD PRN PRN Reason: SALINE FLUSH Last Admin: 10/01/18 06:36 Dose: 10 ml Medical Necessity - Tobacco Use Smoking Status: Former smoker Tobacco Use: Non-smoker Assessment/Plan All Active Problems (Last Reviewed 07/30/18 @ 15:46 by Maria L Ortiz) Bilateral cellulitis of lower leg (Acute) Acute on chronic respiratory failure with hypoxemia (Acute) Flu-like symptoms (Acute) Hypoxia (Acute) Change in mental status (Acute) Encephalopathy (Acute) Hyperkalemia (Acute) PSVT (paroxysmal supraventricular tachycardia) (Acute) BRBPR (bright red blood per rectum) (Resolved) C. difficile colitis (Resolved) Cholelithiasis (Resolved) Hyperkalemia (Resolved)
--- NOTE | 2018-10-01 13:42 | PCM.PN.HOSP ---
Patient Problems: Active and Suspected Problems (Last Reviewed 07/30/18 @ 15:46 by Maria L Ortiz) Hypoxia (Acute) Change in mental status (Acute) Encephalopathy (Acute) Hyperkalemia (Acute) PSVT (paroxysmal supraventricular tachycardia) (Acute) Vitals/I&O's: Vital Signs Temp Pulse Resp BP Pulse Ox 97.8 F 63 16 115/50 L 94 10/01/18 09:26 10/01/18 13:28 10/01/18 13:28 10/01/18 09:31 10/01/18 09:26 Oxygen Flow Rate (L/min) 8 Oxygen Delivery Method Nasal Cannula Weight: 114.6 kg Body Mass Index (BMI) 37.5 Finger Stick Blood Glucose 74 Intake and Output for Last 24 Hours 09/29/18 09/30/18 10/01/18 23:59 23:59 23:59 Intake Total 1380 / 1380 1288 / 1288 505 / 505 Output Total 650 / 650 875 / 875 100 / 100 Balance 730 / 730 413 / 413 405 / 405 Microbiology Past 72 Hours 09/24/18 19:20 Blood Culture (Wb) - Anticubital Left Blood Culture - Final No growth in 5 days. 09/24/18 19:08 Blood Culture (Wb) - Right Hand Blood Culture - Final No growth in 5 days. 09/27/18 21:15 Sputum, Expectorated/Coughed Gram Stain - Final 09/27/18 21:15 Sputum, Expectorated/Coughed Respiratory Culture - Final Coag Negative Staph Coag Negative Staph#2 Laboratory Results 09/30/18 16:22: POC Glucose 151 H 09/30/18 22:28: POC Glucose 129 H 10/01/18 04:05: Sodium 147 H, Potassium 4.8, Chloride 116 H, Carbon Dioxide 24.0, Anion Gap 7, BUN 68 H, Creatinine 2.47 H, Estim Creat Clear Calc 22.30, Est GFR (MDRD) Af Amer 25 L, Est GFR (MDRD) Non-Af 21 L, BUN/Creatinine Ratio 27.5 H, Glucose 137 H, Calcium 7.4 L 10/01/18 06:39: POC Glucose 131 H 10/01/18 11:14: POC Glucose 173 H Current Medications Acetaminophen (Tylenol) 650 mg RECTAL Q6H PRN PRN PRN Reason: pain/fever Last Admin: 09/25/18 21:45 Dose: 650 mg Acetaminophen (Tylenol) 650 mg PO Q6H PRN PRN PRN Reason: Pain/fever Last Admin: 09/26/18 23:40 Dose: 650 mg Albuterol/Ipratropium (Duoneb) 3 ml INHALATION Q6HWA.RT [facility] Last Admin: 10/01/18 13:28 Dose: 3 ml Ascorbic Acid (Vitamin C) 500 mg PO DAILY@0800 [facility] Last Admin: 10/01/18 09:31 Dose: 500 mg Bumetanide (Bumex) 1.5 mg PO BID [facility] Last Admin: 10/01/18 09:31 Dose: 1.5 mg Calamine/Phenol (Calmoseptine Ointment) 1 applic TOPICAL TID [facility]; Protocol Last Admin: 10/01/18 06:36 Dose: 1 applicatio Clopidogrel Bisulfate (Plavix) 75 mg PO DAILY [facility] Last Admin: 10/01/18 09:31 Dose: 75 mg Diltiazem HCl (Cardizem Cd) 120 mg PO DAILY [facility] Last Admin: 10/01/18 09:31 Dose: 120 mg Enoxaparin Sodium (Lovenox) 30 mg SC DAILY@1000 [facility] Last Admin: 10/01/18 09:34 Dose: 30 mg Ferrous [facility]con[facility] ([facility]) [facility] Last Admin: 10/01/18 09:31 Dose: 324 mg Fluticasone Propionate (Flonase Nasal [place]) 2 spray NASAL DAILY [facility] Last Admin: 10/01/18 09:31 Dose: 2 spray Sodium Chloride () 250 mls @ 15 mls/hr IV .[id number] PRN PRN Reason: SALINE FLUSH Last Admin: 09/28/18 21:01 Dose: 15 mls/hr Insulin Human Lispro (Humalog Kwikpen (Bkc)) 0 unit SC ACHS [facility]; Protocol Last Admin: 10/01/18 11:17 Dose: 1 u Isosorbide Mononitrate (Imdur) 60 mg PO DAILY [facility] Last Admin: 10/01/18 09:31 Dose: 60 mg Lactobacillus Acidophilus (Acidophilus) 1 tablet PO BID [facility] Last Admin: 10/01/18 09:31 Dose: 1 tablet Magnesium Hydroxide (Milk Of Magnesia) 30 ml PO DAILY PRN PRN PRN Reason: Constipation Metoprolol Tartrate (Lopressor (Beta Richard)) 100 mg PO BID [facility] Last Admin: 10/01/18 09:31 Dose: 100 mg Montelukast Sodium (Singulair) 10 mg PO QHS [facility] Last Admin: 10/01/18 00:17 Dose: 10 mg Nitroglycerin (Nitrostat) 0.4 mg SUBLINGUAL Q5M PRN PRN Reason: Chest Pain Sodium Chloride () 5 - 15 ml IV UD PRN PRN Reason: SALINE FLUSH Last Admin: 10/01/18 06:36 Dose: 10 ml Medical Necessity - Tobacco Use Smoking Status: Former smoker Tobacco Use: Non-smoker Assessment/Plan All Active Problems (Last Reviewed 07/30/18 @ 15:46 by Maria L Ortiz) Bilateral cellulitis of lower leg (Acute) Acute on chronic respiratory failure with hypoxemia (Acute) Flu-like symptoms (Acute) Hypoxia (Acute) Change in mental status (Acute) Encephalopathy (Acute) Hyperkalemia (Acute) PSVT (paroxysmal supraventricular tachycardia) (Acute) BRBPR (bright red blood per rectum) (Resolved) C. difficile colitis (Resolved) Cholelithiasis (Resolved) Hyperkalemia (Resolved)
--- NOTE | 2018-10-01 14:55 | CASEMGMT ---
Social Work Note SW placed green sheet on chart. Plan: SWCC once medically cleared Shima Moore [employer], [employer]
[2018-10-01 15:01] LABS: Allen Test POS; Base Excess -6 mmol/L (-2 to +2); Bicarbonate 22.1 mmol/L (22-26); Blood Gas Specimen Type ART; O2 Delivery Device Nasal Can; PO2 64 mmHG (75-100); SITE L Brachial; SO2 87 % (95-99); Time Given 1455; Total Carbon Dioxide 24 mmol/L; pCO2 54.5 mmHg (35-45); pH 7.22 (7.35-7.45)
--- NOTE | 2018-10-01 15:46 | DCINST_ITS ---
- Discharge Diagnoses Current Active Problems: Current Active and Chronic Problems (Last Reviewed 07/30/18 @ 15:46 by Maria L Ortiz) Hypoxia (Acute) Change in mental status (Acute) Encephalopathy (Acute) Acute kidney injury superimposed on CKD (Chronic) Hyperkalemia (Acute) PSVT (paroxysmal supraventricular tachycardia) (Acute) CAD (coronary artery disease) (Chronic) Valvular heart disease (Chronic) COPD (chronic obstructive pulmonary disease) (Chronic) S/P PTCA (percutaneous transluminal coronary angioplasty) (Chronic) Reason(s) for Visit for Discharge Instructions: Hypoxia, altered mental status You will use the following diet at home:: Calorie/Carbohydrate Controlled (specify 1200, 1400, etc), Cardiac Your food should be the consistency of: Regular Your liquids should be the consistency of: Regular/Thin Discharge Activity: Return to Normal Activity Allergies/Adverse Reactions: Allergies Penicillins Allergy (Verified 07/30/18 15:47) Rash rosiglitazone maleate [From Avandia] Allergy (Verified 07/30/18 15:47) Swelling & diarrhea simvastatin [From Zocor] Allergy (Verified 07/30/18 15:47) Muscle weakness atorvastatin calcium [From Lipitor] Adverse Reaction (Verified 07/30/18 15:47) Muscle weakness esomeprazole magnesium [From Nexium] Adverse Reaction (Verified 07/30/18 15:47) Diarrhea lansoprazole [From Prevacid] Adverse Reaction (Verified 07/30/18 15:47) Diarrhea Sulfa (Sulfonamide Antibiotics) Adverse Reaction (Verified 07/30/18 15:47) Nausea/Vom/Diarrhea from PCP office records Medications to take at Discharge Aspirin [Aspirin, Baby] 81 mg PO DAILY@0800 10/20/14 Metoprolol Tartrate [Lopressor (beta apryl)] 100 mg PO BID 10/21/14 Pantoprazole Sodium [Protonix] 40 mg PO BID 10/21/14 Rosuvastatin Calcium [Crestor] 2.5 mg PO QHS 10/21/14 Nitroglycerin [Nitrostat] 0.4 mg SUBLINGUAL Q5M PRN 11/24/14 Ergocalciferol [Vitamin D] 50,000 units PO SA 02/16/16 Niacinamide [Niacin] 500 mg PO BID 02/16/16 Montelukast Sodium [Singulair] 10 mg PO QHS 05/06/16 Ondansetron [Zofran Odt] 8 mg PO Q6H PRN PRN 03/31/17 Amlodipine [Norvasc] 5 mg PO DAILY 10/12/17 Alpha Lipoic Acid 600 mg PO QHS 01/24/18 Acetaminophen [Tylenol Tablet] 650 mg PO Q6H PRN PRN tab 01/28/18 Albuterol Aerosols [Ventolin Aerosols] 2.5 mg INHALATION Q2H PRN PRN vial.neb. 01/28/18 Cetirizine HCl [Zyrtec] 10 mg PO DAILY PRN 03/17/18 Bisacodyl [Dulcolax] 10 mg RECTAL DAILY PRN PRN 03/18/18 Guaifenesin [Robitussin] 10 ml PO Q4H PRN PRN 03/18/18 Magnesium Hydroxide [Milk Of Magnesia] 30 ml PO DAILY PRN PRN udc 03/20/18 Menthol/Lanolin/Calamine/Znox [Calmoseptine Ointment] 1 applic TOPICAL TID tube 03/20/18 Senna/Docusate Sodium [Senokot-S] 2 tab PO BID PRN tab 03/20/18 Ascorbic Acid [Vitamin C] 500 mg PO DAILY@0800 09/25/18 Clopidogrel Bisulfate [Plavix] 75 mg PO DAILY 09/25/18 Ferrous Gluconate 325 mg PO BIDCM 09/25/18 Fluticasone 0.05% [Flonase Nasal [place]] 2 spray NASAL DAILY 09/25/18 Insulin Glargine [Lantus SoloStar Pen] 38 units SC QHS 09/25/18 Insulin Lispro [Humalog KwikPen] 10 unit SQ DINNER 09/25/18 Insulin Lispro [Humalog KwikPen] 10 unit SQ LUNCH 09/25/18 Insulin Lispro [Humalog KwikPen] 12 unit SQ BREAKFAST 09/25/18 Insulin Lispro [Humalog KwikPen] See Protocol SQ ACHS 09/25/18 Isosorbide Mononitrate [Imdur] 60 mg PO DAILY 09/25/18 L. Rhamnosus GG/Inulin [Culturelle Probiotics Capsule] 1 each PO BID 09/25/18 Multivitamin with Minerals [Multiple Vitamin] 1 each PO DAILY 09/25/18 Nystatin Powder [Mycostatin Powder] 1 applic TOPICAL TID 09/25/18 Prednisone 5 mg PO DAILY 09/25/18 Primary Care Physician: Kim Field MD [Primary Care Provider] - Please follow up with your Primary Care Physician in: within 1-2 weeks after discharge Test Results: Test results from this visit will be discussed in further detail at your follow- up appointment, if applicable. Proposed Discharge Date: 10/01/18
--- NOTE | 2018-10-01 15:47 | CPS ---
[address] Hardin regarding ABG results. Dr Hardin gave verbal order to place pt back on Bipap.
[2018-10-01] MEDS: Haloperidol Lactate 5 MG/ML Vial IV (15:48)
--- NOTE | 2018-10-01 15:49 | CPS ---
[address] Hardin to inform her that Bipap mask was attempted to be placed on pt. Pt became agitated and stated she did not want that. Pt was encouraged to wear and mask was attempted to be placed on pt. Pt began shaking head back and forth. Machine placed on standby. Dr Gipson was called per request from Dr Hardin. Dr Gipson was updated on pt's ABG and the attempt to place pt on Bipap. Dr Gipson spoke to spoke nurse Jenn to give orders.
--- NOTE | 2018-10-01 15:55 | CASEMGMT ---
Patient may possibly be transferred to a tertiary care center. TRI Roberst at [facility] know this information. There is also a green sheet on chart in the event patient is not transferred and is just sent back to [facility]. Milady HARVEY
--- NOTE | 2018-10-01 17:02 | CPS ---
1700..ATTEMPTED TO PLACE PT BACK ON BIPAP POST MEDICATION. PT CONTINUES TO REFUSE. NURSE AWARE AND ALSO ATTEMPTED TO PLACE PT ON PER HERSELF. PT ALSO REFUSED BIPAP PER NURSE. NURSE STATED SHE IS GOING TO INFORM
[2018-10-01 17:25] LABS: Bedside Glucose 124 mg/dL (70-110)
--- NOTE | 2018-10-01 19:04 | NURSING ---
NISA HERE REPORT GIVEN
--- NOTE | 2018-10-02 12:19 | PCM.DC.SUM ---
Discharge Date and Diagnosis Date of Admission: 09/25/18 Date of Discharge: 10/01/18 - Primary Discharge Diagnosis Acute combined respiratory failure Acute metabolic encephalopathy Health care associated pneumonia, suspected gram-negative organisms Acute on chronic diastolic CHF AK I on CKD stage III Hyponatremia Paroxysmal SVTs - Secondary Discharge Diagnosis Chronic Problems (Last Reviewed 07/30/18 @ 15:46 by Maria L Ortiz) Acute kidney injury superimposed on CKD (Chronic) CAD (coronary artery disease) (Chronic) Valvular heart disease (Chronic) COPD (chronic obstructive pulmonary disease) (Chronic) S/P PTCA (percutaneous transluminal coronary angioplasty) (Chronic) Hyperlipidemia (Chronic) Hypertension (Chronic) H/O coronary artery bypass surgery (Chronic ~2007) CABG x 3 STORY-LAD, SVG-RCA, SVG-Cx 2007 Atherosclerosis of coronary artery of [place] heart without angina pectoris (Chronic) CABG x 3 STORY-LAD, SVG-RCA, SVG-Cx 2007 Nonrheumatic tricuspid valve regurgitation (Chronic) Secondary pulmonary arterial hypertension (Chronic) Non-rheumatic aortic stenosis (Chronic) Ulcer of right lower extremity with fat layer exposed (Chronic) anterior lower extremity ulcer Venous insufficiency of both lower extremities (Chronic) Other specified peripheral vascular diseases (Chronic) Ulcer of left lower extremity with fat layer exposed (Chronic) Delayed wound healing (Chronic) Maceration of skin (Chronic) Type 2 diabetes mellitus with diabetic peripheral angiopathy without gangrene (Chronic) Lymphedema in adult patient (Chronic) Noncompliance with treatment regimen (Chronic) Pulmonary nodules (Chronic) Obesity (BMI 30.0-34.9) (Chronic) 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) Thrombocytopenia (Chronic) Hospital Course and Treatment Imaging Results: Clinical Impression(s) from Imaging Studies Chest X-Ray 09/24/18 19:55 IMPRESSION: Poor inspiration. Right lower lung field infiltrate and/or atelectasis. Increased pulmonic density also noted in the left perihilar area. These abnormalities represent new interval findings. Mild cardiomegaly. Status post sternotomy. Electronically Signed: Tristen Coronel MD at 21:35 EDT , Service support , Brain CT 09/24/18 21:48 IMPRESSION: Worsening right frontoparietal deep white matter ischemia which may be progression of old changes however new infarct cannot be excluded. MRI brain follow-up is recommended. Bilateral deep white matter old small vessel ischemic changes as well Inflammatory changes paranasal sinuses Bilateral mastoid effusions Electronically Signed: Gregory Gordon, at 23:45 EDT Tel , Service support , Chest X-Ray 09/25/18 08:04 IMPRESSION: Worsening CHF Electronically Signed: Chilo Whitaker, at 9:21 EDT Tel , Service support , Chest CT 09/25/18 08:13 IMPRESSION: 1. Diffuse bilateral pneumonic infiltrates with associated bibasilar consolidation and small to moderate-sized bilateral pleural effusions, right greater than left. 2. Reactive mediastinal and hilar lymph nodes. 3. Mild cardiomegaly. 4. Perihepatic and perisplenic ascites. Electronically Signed: Rashaad Doty MD at 5:00 EDT Tel , Service support , Brain CT 09/26/18 05:00 IMPRESSION: 1. No CT evidence of acute intracranial hemorrhage. 2. Bilateral otomastoiditis. 3. Moderately severe paranasal sinus disease. Electronically Signed: Virginia Angel MD at 6:12 EDT , Service support , Consultations 09/25/18 16:17 Consult: Onc/Wound/director of physical education Routine Comment: Reason for Consult:: wounds to BLE Operations: None Procedures: None Summary of Care Provided: 67-year-old female was admitted from SNF with hypoxia and mental status. She was found to be hypoxic with her SPO2 and 66%, and minimally responsive to verbal stimuli. In the emergency department patient was found to be saturating 76% on 4 L. ABG showed a pH of 7.16, PCO2 was 56, PO2 was 68. She was admitted to the ICU managed as acute hypoxic and hypercapnic respiratory failure. CT scan of the brain showed worsening right frontoparietal deep white matter ischemia suggestive of old changes but a new infarct could not be excluded. MRI of the brain could not be done because patient had cochlear implant. She was managed on BiPAP. She was also found to have an infiltrate in her right lower lung. She was started on IV antibiotics. Patient was found to be fluid overloaded, initially not started on diuretics, started on diuretics with good effect. Patient was also found to have tachycardia with heart rate going into the 200s. Cardiology was consulted, managed as paroxysmal SVTs, resumed on her metoprolol and started on Cardizem. Did not improve and eventually was discharged to the progressive care unit. Nephrology discussion with cardiology recommended patient to be transferred to an acute care facility for evaluation for Marcia. Cardiology discussed with cattle sorter in [facility] and patient was accepted. Consent for transfer to [facility] was obtained from the patient's power of estate planning attorney who is her cousin, as patient is hard of hearing, at baseline cannot reliably have and understand complex medical decisions. Subjective: On the day of discharge, patient had refused the BiPAP the night before, and was found to be sleepy. Repeat ABG was not different from previous -pH was 7.22, PCO2 was 54.5. 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 Discussed with the director digital catalogue, patient had received Haldol in the recent past. She received Haldol. Discussed with cardiology, patient was to be transferred to [facility] for evaluation for TVAR Objective: Physical exam: General: Alert, Cooperative, No apparent distress, hard of hearing, appeared sleepy HEENT: Atraumatic, PERRLA, EOMI, Normocephalic Oral: Moist Mucosa Neck: Supple Lungs: Diminished Cardiovascular: Regular rate, Regular Rhythm, Normal S1, Normal S2, No murmurs Abdomen: Bowel Sounds Present, Soft, Non Tender, Non-Distended, No Hepato-splenomegaly Extremities: Bilateral leg edema as well as bilateral hands, +3-4 Skin: - - Bilateral lower extremities edema +3 with erythema and areas of ulceration, worse on the right Musculoskeletal: No Tenderness to Palpation of Joints or Extremities Lymphatic: No Cervical, Supraclavicular, or Inguinal Adenopathy Neurological: Cranial nerves II-XII grossly intact Psych/Mental Status: Normal Affect, Appropriate - Physical Exam Vital Signs Temp Pulse Resp BP Pulse Ox 97.7 F L 61 22 H 140/48 H 95 10/01/18 17:10 10/01/18 17:10 10/01/18 17:10 10/01/18 17:10 10/01/18 17:10 Oxygen Flow Rate (L/min) 8 Oxygen Delivery Method Nasal Cannula Weight: 114.6 kg Body Mass Index (BMI) 37.5 Finger Stick Blood Glucose 74 Intake and Output for Last 24 Hours 09/30/18 10/01/18 10/02/18 23:59 23:59 23:59 Intake Total 1288 / 1288 1195 / 1195 Output Total 875 / 875 350 / 350 Balance 413 / 413 845 / 845 Microbiology Past 72 Hours 09/24/18 19:20 Blood Culture - Final Blood Culture (Wb) - Anticubital Left No growth in 5 days. 09/24/18 19:08 Blood Culture - Final Blood Culture (Wb) - Right Hand No growth in 5 days. 09/27/18 21:15 Gram Stain - Final Sputum, Expectorated/Coughed Respiratory Culture - Final Coag Negative Staph Coag Negative Staph#2 Laboratory Tests Past 24 Hrs 10/01/18 14:54 Specimen Type ART Sample Site L Brachial pH 7.22 L Bicarbonate Actual 22.1 POC Total CO2 24 Base Excess -6 L O2 Saturation 87 L ABG pCO2 54.5 H ABG pO2 64 L Ray Test POS O2 Delivery Device Nasal Can Liter Flow 8.0 Blood Gas Notified Whom RN Blood Gas Notified Time 1455 POC Glucose 10/01/18 17:16 POC Glucose 124 H Discharge Diet: Low fat/ Low Cholesterol, 2000 mg Sodium Diet, Renal Diet Discharge Activity: Return to Normal Activity Home Medications: Medications to take at Discharge Aspirin [Aspirin, Baby] 81 mg PO DAILY@0800 10/20/14 Metoprolol Tartrate [Lopressor (beta apryl)] 100 mg PO BID 10/21/14 Pantoprazole Sodium [Protonix] 40 mg PO BID 10/21/14 Rosuvastatin Calcium [Crestor] 2.5 mg PO QHS 10/21/14 Nitroglycerin [Nitrostat] 0.4 mg SUBLINGUAL Q5M PRN 11/24/14 Ergocalciferol [Vitamin D] 50,000 units PO SA 02/16/16 Niacinamide [Niacin] 500 mg PO BID 02/16/16 Montelukast Sodium [Singulair] 10 mg PO QHS 05/06/16 Ondansetron [Zofran Odt] 8 mg PO Q6H PRN PRN 03/31/17 Amlodipine [Norvasc] 5 mg PO DAILY 10/12/17 Alpha Lipoic Acid 600 mg PO QHS 01/24/18 Acetaminophen [Tylenol Tablet] 650 mg PO Q6H PRN PRN tab 01/28/18 Albuterol Aerosols [Ventolin Aerosols] 2.5 mg INHALATION Q2H PRN PRN vial.neb. 01/28/18 Cetirizine HCl [Zyrtec] 10 mg PO DAILY PRN 03/17/18 Bisacodyl [Dulcolax] 10 mg RECTAL DAILY PRN PRN 03/18/18 Guaifenesin [Robitussin] 10 ml PO Q4H PRN PRN 03/18/18 Magnesium Hydroxide [Milk Of Magnesia] 30 ml PO DAILY PRN PRN udc 03/20/18 Menthol/Lanolin/Calamine/Znox [Calmoseptine Ointment] 1 applic TOPICAL TID tube 03/20/18 Senna/Docusate Sodium [Senokot-S] 2 tab PO BID PRN tab 03/20/18 Ascorbic Acid [Vitamin C] 500 mg PO DAILY@0800 09/25/18 Clopidogrel Bisulfate [Plavix] 75 mg PO DAILY 09/25/18 Ferrous Gluconate 325 mg PO BIDCM 09/25/18 Fluticasone 0.05% [Flonase Nasal [place]] 2 spray NASAL DAILY 09/25/18 Insulin Glargine [Lantus SoloStar Pen] 38 units SC QHS 09/25/18 Insulin Lispro [Humalog KwikPen] 10 unit SQ DINNER 09/25/18 Insulin Lispro [Humalog KwikPen] 10 unit SQ LUNCH 09/25/18 Insulin Lispro [Humalog KwikPen] 12 unit SQ BREAKFAST 09/25/18 Insulin Lispro [Humalog KwikPen] See Protocol SQ ACHS 09/25/18 Isosorbide Mononitrate [Imdur] 60 mg PO DAILY 09/25/18 L. Rhamnosus GG/Inulin [Culturelle Probiotics Capsule] 1 each PO BID 09/25/18 Multivitamin with Minerals [Multiple Vitamin] 1 each PO DAILY 09/25/18 Nystatin Powder [Mycostatin Powder] 1 applic TOPICAL TID 09/25/18 Prednisone 5 mg PO DAILY 09/25/18 Primary Care Physician: Kim Field MD [Primary Care Provider] - Please follow up with your Primary Care Physician in: within 1-2 weeks after discharge Disposition: Acute care Hospital Minutes spent on discharge:: 65 - Time spent coordinating transferred to [facility] Patient Condition:: Stable Medical Necessity - Tobacco Use Smoking Status: Former smoker Tobacco Use: Non-smoker Meaningful Use Info Meaningful Use Diagnoses (Choose all that apply): CHF - CHF CARLOS A/ARB ordered at discharge?: No Reason CARLOS A/ARB not ordered?: Worsening renal dysfunctn Documented LVEF (%): 65 Code Visit Inpatient E&M: 29044 Disch Hosp
== END 2018-10-01 19:11 | disposition short-term general hospital (02) | DRG 137 ==
LOC: ED 20:00 → ICU 09-25 00:53 → PCU 09-29 11:20
PROVIDERS: Internal Medicine; Internal Medicine Critical Care Medicine; Admitting Provider Internal Medicine; Emergency Provider Emergency Medicine; Family Provider Internal Medicine; PCP Internal Medicine; Referring Provider Internal Medicine; Visit Provider Internal Medicine
DX: J15.6 Pneumonia due to other Gram-negative bacteria (principal); J96.02 Acute respiratory failure with hypercapnia; G93.41 Metabolic encephalopathy; I25.10 Atherosclerotic heart disease of native coronary artery without angina pectoris; E87.5 Hyperkalemia; I13.0 Hypertensive heart and chronic kidney disease with heart failure and stage 1 through stage 4 chronic kidney disease, or unspecified chronic kidney disease; I50.33 Acute on chronic diastolic (congestive) heart failure; N18.3 Chronic kidney disease, stage 3 (moderate); E11.22 Type 2 diabetes mellitus with diabetic chronic kidney disease; N17.9 Acute kidney failure, unspecified; J96.01 Acute respiratory failure with hypoxia; I27.21 Secondary pulmonary arterial hypertension; E87.0 Hyperosmolality and hypernatremia; E11.51 Type 2 diabetes mellitus with diabetic peripheral angiopathy without gangrene; D69.6 Thrombocytopenia, unspecified; E86.0 Dehydration; L03.116 Cellulitis of left lower limb; L03.115 Cellulitis of right lower limb; J44.0 Chronic obstructive pulmonary disease with (acute) lower respiratory infection; E78.5 Hyperlipidemia, unspecified; E66.9 Obesity, unspecified; I35.0 Nonrheumatic aortic (valve) stenosis; I87.2 Venous insufficiency (chronic) (peripheral); Z96.21 Cochlear implant status; H91.90 Unspecified hearing loss, unspecified ear; Z95.5 Presence of coronary angioplasty implant and graft; Z95.1 Presence of aortocoronary bypass graft; Z79.4 Long term (current) use of insulin; Z68.37 Body mass index [BMI] 37.0-37.9, adult; Z87.891 Personal history of nicotine dependence
CPT/HCPCS: 36415; 36569; 36600; 70450; 71045; 71250; 80048; 80053; 80076; 80202; 81001; 82140; 82550; 82803; 82962; 83605; 83690; 83735; 83880; 84100; 84484; 85025; 85027; 85610; 85730; 87040; 87070; 87086; 87205; 87449; 87633; 87641; 93005; 93306; 94002; 94003; 94640; 97162; 97165; 97530; 97535; 99251; 99285; J2185; J7030; J7040; J7050; P9612; A4216; G0463; J0610; J1940